=== PATIENT | male | born 1955 | race African-American/Black ===

== ENCOUNTER 2018-04-22 13:46 | Inpatient (IN) | payer OTHER ==
[2018-04-22] MEDS ORDERED: RAPID SEQUENCE INTUBATION KIT NR ONE ×2 (13:54→14:01)
[2018-04-22 14:05] LABS: BASO % 5.8 % (0-2.0); EOS % 3.4 % (0-4.5); HEMATOCRIT 42.1 % (35.4-49); HEMOGLOBIN 13.1 GM/dL (11.7-16.9); LYMPH % 21.9 % (8-40); MCHC 31.2 g/dl (32.0-35.9); MEAN CELL VOLUME 89.7 fl (80-96); MEAN PLT VOLUME 7.5 fl (7.5-11.1); MONO % 8.9 % (3.8-10.2); PLATELET COUNT 232 K/MM3 (134-434); RBC 4.69 M/mm3 (4.00-5.60); RDW 18.6 % (11.9-15.9); WHITE BLOOD COUNT 6.7 K/mm3 (4.0-10.0)
[2018-04-22] MEDS ORDERED: PROPOFOL 1,000,000 MCG/100 ML VIAL ONE ×2 (14:15→19:33)
[2018-04-22] MEDS ORDERED: PROPOFOL 200 MG/20 ML VIAL IVPUSH ONE (14:16)
[2018-04-22] MEDS ORDERED: ROCURONIUM BROMIDE 50 MG/5 ML VIAL IV ONE (14:16)
[2018-04-22] MEDS ORDERED: ETOMIDATE 20 MG/10 ML AMPUL IVPUSH ONE (14:16)
[2018-04-22 14:19] LABS: INR 1.12 (0.82-1.09); PROTHROMBIN TIME (PATIENT) 12.6 SEC (9.7-13.0)
[2018-04-22 14:30] LABS: ALBUMIN 3.2 g/dl (3.4-5.0); ANION GAP 13 (8-16); BILIRUBIN,TOTAL 0.4 mg/dL (0.2-1.0); BLOOD UREA NITROGEN 97 mg/dL (7-18); CALCIUM 7.9 mg/dL (8.5-10.1); CHLORIDE 108 mmol/L (98-107); CHOLESTEROL 178 mg/dL (50-200); CO2 19 mmol/L (21-32); GLUCOSE,RANDOM 170 mg/dL (74-106); POTASSIUM 4.7 mmol/L (3.5-5.1); SGOT/AST 16 U/L (15-37); SGPT/ALT 21 U/L (12-78); SODIUM 140 mmol/L (136-145); TOT PROT 7.5 g/dl (6.4-8.2); TRIGLYCERIDES 76 mg/dL (35-160)
[2018-04-22 14:31] LABS: ALK PHOS 137 U/L (45-117); HDL CHOLESTEROL 63 mg/dL (40-60)
[2018-04-22 14:32] LABS: ANISOCYTOSIS 2+; MACROCYTOSIS 0; PLATELET ESTIMATE NORMAL
[2018-04-22 14:35] LABS: CREATININE 11.7 mg/dL (0.7-1.3)
--- NOTE | 2018-04-22 14:35 | PDOC ---
History of Present Illness <Italia Ellis - Last Filed: 04/22/18 15:37> - General History Source: Family Exam Limitations: Clinical Condition <Michael Ayala - Last Filed: 04/22/18 16:00> - General Chief Complaint: Syncope/Near Syncope Stated Complaint: HIGH BP Time Seen by Provider: 04/22/18 13:48 Past History <Italia Ellis - Last Filed: 04/22/18 15:37> - Past Medical History COPD: No Disorders: Yes (kidney failure) HTN: No - Suicide/Smoking/Psychosocial Hx Smoking History: Unknown if ever smoked Have you smoked in the past 12 months: No Information on smoking cessation initiated: No Hx Alcohol Use: No Drug/Substance Use Hx: No Substance Use Type: None <Michael Ayala - Last Filed: 04/22/18 16:00> - Past Medical History Allergies/Adverse Reactions: Allergies Allergy/AdvReac Type Severity Reaction Status Date / Time No Known Allergies Allergy Verified 04/22/18 14:21 *Physical Exam - Vital Signs Last Vital Signs Temp Pulse Resp BP Pulse Ox 124 H 14 200/128 100 04/22/18 13:46 04/22/18 14:40 04/22/18 13:46 04/22/18 14:40 <Italia Ellis - Last Filed: 04/22/18 15:37> - Vital Signs Last Vital Signs Temp Pulse Resp BP Pulse Ox 124 H 44 H 200/128 100 04/22/18 13:46 04/22/18 13:46 04/22/18 13:46 04/22/18 13:46 <Michael Ayala - Last Filed: 04/22/18 16:00> ED Treatment Course - LABORATORY CBC & Chemistry Diagram: 04/22/18 13:55 04/22/18 13:55 - ADDITIONAL ORDERS Additional order review: Laboratory Results 04/22/18 04/22/18 13:55 13:55 PT with INR 12.60 INR 1.12 Sodium 140 Potassium 4.7 Chloride 108 H Carbon Dioxide 19 L Anion Gap 13 BUN 97 H Creatinine 11.7 H* Creat Clearance w eGFR 4.42 Random Glucose 170 H Calcium 7.9 L Total Bilirubin 0.4 AST 16 ALT 21 Alkaline Phosphatase 137 H Creatine Kinase 226 Creatine Kinase Index 1.6 CK-MB (CK-2) 3.8 H Troponin I 0.09 H Total Protein 7.5 Albumin 3.2 L Triglycerides 76 Cholesterol 178 Total LDL Cholesterol 106 H HDL Cholesterol 63 H 04/22/18 13:55 RBC 4.69 MCV 89.7 MCHC 31.2 L RDW 18.6 H MPV 7.5 Neutrophils % 60.0 Lymphocytes % 21.9 Monocytes % 8.9 Eosinophils % 3.4 Basophils % 5.8 H* - Medications Given in the ED: ED Medications Discontinued Medications Generic Name Dose Route Start Last Admin Trade Name Mile PRN Reason Stop Dose Admin Fentanyl 50 mcg 04/22/18 14:16 04/22/18 14:12 Sublimaze Injection - IVPUSH 04/22/18 14:17 50 mcg ONCE ONE Administration - Consult/PCP Case discussed with consulting physician: Andrade Hayes (Re-paged Neuro to report CT results. Callback 3:30pm) - Additional Consults Time Called: 14:54 (Paged Renal on-call - Dr. Tai) Consult/PCP: Repaged Nephrology at 3:18p Time Called: 15:06 (Paged Dona) <Italia Ellis - Last Filed: 04/22/18 15:37> - LABORATORY CBC & Chemistry Diagram: 04/22/18 13:55 04/22/18 13:55 - ADDITIONAL ORDERS Additional order review: Laboratory Results 04/22/18 13:55 PT with INR 12.60 INR 1.12 04/22/18 13:55 RBC 4.69 MCV 89.7 MCHC 31.2 L RDW 18.6 H MPV 7.5 Neutrophils % 60.0 Lymphocytes % 21.9 Monocytes % 8.9 Eosinophils % 3.4 Basophils % 5.8 H* - RADIOLOGY Radiology Studies Ordered: Category Date Time Status HEAD CT (STROKE) [CT] Stat CT Scan 04/22/18 13:48 Ordered <Michael Ayala - Last Filed: 04/22/18 16:00> *DC/Admit/Observation/Transfer <Italia Ellis - Last Filed: 04/22/18 15:37> <Michael Ayala - Last Filed: 04/22/18 16:00> Diagnosis at time of Disposition: Renal failure, ARDS (adult respiratory distress syndrome), Respiratory failure - Discharge Dispostion Condition at time of disposition: Guarded
[2018-04-22] MEDS: PROPOFOL 1,000,000 MCG/100 ML VIAL IVPB SCH (14:40)
--- NOTE | 2018-04-22 14:50 | PDOC ---
History of Present Illness - General History Source: EMS Exam Limitations: Clinical Condition <Michael Ayala - Last Filed: 04/22/18 16:06> - History of Present Illness Initial Comments: Patient is a 62 M, with PMHx of Chronic Kidney Disease, Congestive Heart Failure , Coronary Artery Disease, Myocardial Infarction, who was BIBA for unresponsiveness. Around 1 pm the patients wfe reports that he complained of feeling unwell, the patient proceeded to lie down and become unresponsive. EMS was called and they report that he was very altered and confused when they arrived. Patient was given O2 en route. EMS notes a blood glucose of 183 and and elevated BP (240 systolic), pinpoint pupils, and tachycardic. EMS did not notice any narcotics in the home. Patients notes that patient has been sleeping for sometimes 20 hours/day since October. 04/22/18 16:22 <Italia Ellis - Last Filed: 04/22/18 16:22> <Lynnette Alvarez - Last Filed: 04/22/18 18:17> - General Chief Complaint: Syncope/Near Syncope Stated Complaint: HIGH BP Time Seen by Provider: 04/22/18 13:48 Past History - Past Medical History COPD: No Disorders: Yes (kidney failure) HTN: No - Suicide/Smoking/Psychosocial Hx Smoking History: Unknown if ever smoked Have you smoked in the past 12 months: No Information on smoking cessation initiated: No Hx Alcohol Use: No Drug/Substance Use Hx: No Substance Use Type: None <Michael Ayala - Last Filed: 04/22/18 16:06> <Italia Ellis - Last Filed: 04/22/18 16:22> <Lynnette Alvarez - Last Filed: 04/22/18 18:17> - Past Medical History Allergies/Adverse Reactions: Allergies Allergy/AdvReac Type Severity Reaction Status Date / Time No Known Allergies Allergy Verified 04/22/18 14:21 Review of Systems - Review of Systems Able to Perform ROS?: No (unresponsive/altered) <Italia Ellis - Last Filed: 04/22/18 16:22> *Physical Exam - Vital Signs Last Vital Signs Temp Pulse Resp BP Pulse Ox 124 H 44 H 200/128 100 04/22/18 13:46 04/22/18 13:46 04/22/18 13:46 04/22/18 13:46 - Physical Exam Comments: 04/22/18 16:06 GENERAL: Responsive to tactile stimuli, not following commands, ill-appearing. HEAD: No signs of trauma EYES: PERRLA, EOMI, ENT: Auricles normal inspection, hearing grossly normal, nares patent NECK: Normal ROM, supple, LUNGS: Ronchorous breath sounds bilaterally. HEART: Regular rate and rhythm, normal S1 and S2, no murmurs, rubs or gallops. Tachycardic ABDOMEN: Soft, nontender EXTREMITIES: Normal range of motion, no edema. NEUROLOGICAL: Cranial nerves II through XII grossly intact. Does not follow commands. Appears to be moving all extremities equally SKIN: Warm, Dry, normal turgor, no rashes or lesions noted. <Michael Ayala - Last Filed: 04/22/18 16:06> - Vital Signs Last Vital Signs Temp Pulse Resp BP Pulse Ox 95.3 F L 115 H 14 218/110 100 04/22/18 15:12 04/22/18 16:12 04/22/18 16:12 04/22/18 16:12 04/22/18 16:12 <Italia Ellis - Last Filed: 04/22/18 16:22> - Vital Signs Last Vital Signs Temp Pulse Resp BP Pulse Ox 95.3 F L 102 H 20 192/102 100 04/22/18 15:12 04/22/18 17:12 04/22/18 17:12 04/22/18 17:12 04/22/18 17:12 <Lynnette Alvarez - Last Filed: 04/22/18 18:17> NIH Stroke Scale - Last Known Well Date/Time & Onset Date Last Known Well: 04/22/18 Time Last Known Well: 13:00 - Initial Evaluation Level of consciousness: Not alert, requires repeat stimulation to attend Ask patient the month and their age: Both incorrect Ask patient to open & close eyes; make fist and let go: Both incorrect Best gaze (horizontal eye movement): Normal Visual field testing: No visual field loss Facial paresis (Show teeth/raise eyebrows/close eyes tight): Normal symmetrical movement Motor Function: Left Arm: Normal Motor Function: Right Arm: Normal (extends arm 90 (or 45) degrees for 10 seconds without drift Motor Function: Left Leg: Normal (extends leg 30 degrees for 5 seconds without drift) Motor Function: Right Leg: Normal (extends leg 30 degrees for 5 seconds without drift) Limb Ataxia: No ataxia Sensory(Use pinprick test arms,legs,trunk,face/side to side): Severe to total sensory loss Best language (Describe picture, name items, read sentences): Mute Dysarthria (read several words): Near unintelligible or unable to speak Extinction and Inattention: Profound chace-inattention or extinction to more than one modality - Total Score NIH Stroke Scale Score: 15 <Michael Ayala - Last Filed: 04/22/18 16:06> tPA Exclusion Checklist 0-3hr - Time Elapsed Date last known well: 04/22/18 Time last known well: 13:00 Elaspsed time: Day(s) and 3 Hour(s) and 6 Minutes <Michael Ayala - Last Filed: 04/22/18 16:06> Procedures - Intubation Time of Intubation: 14:20 Intubation Method: orotracheal Blade used: Glidescope Tube Size (Fr): 7.5 Medications: Etomidate, Rocuronium Tube position @ lip (cm): 22 Tube position confirmed by: Direct visualization, CO2 detector, Chest x-ray, Breath sounds Breath Sounds after Intubation: equal Intubation Complications: no complications Post Intubation Xray: Yes <Michael Ayala - Last Filed: 04/22/18 16:06> - Central Line Central Line Lumen: double Central Line Position: femoral (R) Anesthesia: 1% Lidocaine Amount of anesthesia (ccs): 3 Complications: none Post Central Line Insertion: sutured, good blood return Progress: Biopatch and tegaderm applied <Lynnette Alvarez - Last Filed: 04/22/18 18:17> Heart Score/ECG Review #1 ECG reviewed & interpreted by me at: 14:10 04/22/18 15:33 NSR 119, left atrial enlargement, LVH with strain, QTC 497 msec <Michael Ayala - Last Filed: 04/22/18 16:06> Critical Care Time/MDM Note Total Critical Care Time: 60 Critical Care Statement: The care of this patient involved high complexity decision making to prevent further life threatening deterioration of the patient 's condition and/or to evaluate & treat vital organ system(s) failure or risk of failure. - Medical Decision Making Note: 04/22/18 14:50 A portion of this note was documented by scribe services under my direction. I have reviewed the details of the note, within reason, and agree with the documentation with the following case summary and management plan written by me. Patient treated in the ED. Nursing notes are reviewed and incorporated into the medical decision-making. Vital signs reviewed. Peripheral IV access obtained by the nurse, laboratory studies are drawn and sent, reviewed and interpreted by myself. Vital Signs Temp Pulse Resp BP Pulse Ox 124 H 14 200/128 100 04/22/18 13:46 04/22/18 14:40 04/22/18 13:46 04/22/18 14:40 62-year-old male with past medical history of hypertension, coronary disease, [place] , chronic kidney disease, congestive heart failure presents with unresponsiveness. History is obtained from EMS and from the patient's . The patient was in his usual state of health today. The patient at 1 PM had called over his as he reported feeling general malaise and unwell. The patient progressed to sit down. He had lied down and patient became unresponsive. He was very altered and confused. EMS was activated and found the patient minimally responsive. Patient was brought to the ED. EMS noted a glucose in the 180s. Blood pressure noted be 240 systolic. Code larkin was initiated. When the patient was evaluated by us, there was significant concern for airway protection. The patient is not following commands but appears to be moving all extremity is grossly. There is no obvious facial deficit. Patient airway protection was of concern so RSI was performed using the glydeoscope by Dr. Alvarez. Uncomplicated intubation. 7.5 ET tube was placed at 22 at the lip. Bilateral breath sounds and end tidal confirmed. Head CT demonstrates no acute findings. There is no intracranial hemorrhage. With the patient's minimal responsiveness be secondary to metabolic disarray such as uremic encephalopathy. Could this have been hypertensive and cephalopathy? Also within differential is PRES syndrome. The patient may potentially have had an ischemic stroke but the physical exam generally did not demonstrate an obvious focal deficit. Case was discussed with neurologist. We'll consult nephrology for potential stat dialysis. We'll need to admit the patient to the ICU for further management. 04/22/18 15:50 CBC, BMP 04/22/18 13:55 04/22/18 13:55 CMP Sodium 140 mmol/L (136-145) 04/22/18 13:55 Potassium 4.7 mmol/L (3.5-5.1) 04/22/18 13:55 Chloride 108 mmol/L (98-107) H 04/22/18 13:55 Carbon Dioxide 19 mmol/L (21-32) L 04/22/18 13:55 Anion Gap 13 (8-16) 04/22/18 13:55 BUN 97 mg/dL (7-18) H 04/22/18 13:55 Creatinine 11.7 mg/dL (0.7-1.3) H* 04/22/18 13:55 Creat Clearance w eGFR 4.42 (>60) 04/22/18 13:55 Random Glucose 170 mg/dL (74-106) H 04/22/18 13:55 Calcium 7.9 mg/dL (8.5-10.1) L 04/22/18 13:55 Total Bilirubin 0.4 mg/dL (0.2-1.0) 04/22/18 13:55 AST 16 U/L (15-37) 04/22/18 13:55 ALT 21 U/L (12-78) 04/22/18 13:55 Alkaline Phosphatase 137 U/L (45-117) H 04/22/18 13:55 Creatine Kinase 226 IU/L (39-308) 04/22/18 13:55 Creatine Kinase Index 1.6 % (0.0-5.0) 04/22/18 13:55 CK-MB (CK-2) 3.8 ng/mL (0.5-3.6) H 04/22/18 13:55 Troponin I 0.09 ng/ml (0.00-0.05) H 04/22/18 13:55 Total Protein 7.5 g/dl (6.4-8.2) 04/22/18 13:55 Albumin 3.2 g/dl (3.4-5.0) L 04/22/18 13:55 Triglycerides 76 mg/dL (35-160) 04/22/18 13:55 Cholesterol 178 mg/dL (50-200) 04/22/18 13:55 Total LDL Cholesterol 106 mg/dL (5-100) H 04/22/18 13:55 HDL Cholesterol 63 mg/dL (40-60) H 04/22/18 13:55 04/22/18 16:01 The patient case is discussed with software release engineer, Dr. Tai. After discussed with the patient, it appears that the patient has been having a gradual decline since October 2017. Has been increasingly more fatigued and tired. In today an acute episode later today. I suspect this is less likely to be an ischemic stroke given the circumstances. Case was discussed with the neurologist, Dr. Cuevas who also concurs. After discussed the case with software release engineer, we suspect that the patient may be having some element of metabolic disarray such as uremia. The chest x-ray demonstrates a well positioned ET tube blood pulmonary edema which is suspect may be secondary to the hypertension. We will place a Shiley catheter for dialysis. Patient's consents. The case was discussed with system support technician Dr. Huang which is the patient's the ICU. Case was also discussed with [facility] hospitalist who accepts the patient to their service. Case discussed in detail with admitting physician including history, physical exam and ancillary studies. Admitting physician has assumed care for the patient, will follow all pending diagnostics and will complete the evaluation and treatment. <Michael Ayala - Last Filed: 04/22/18 16:06> Discharge Disposition - Discharge Dispostion Decision to Admit order: Yes <Michael Ayala - Last Filed: 04/22/18 16:06> <Italia Ellis - Last Filed: 04/22/18 16:22> <Lynnette Alvarez - Last Filed: 04/22/18 18:17> - Diagnosis ARDS (adult respiratory distress syndrome) Renal failure Qualifiers: Renal failure chronicity: unspecified chronicity Qualified Code(s): N19 - Unspecified kidney failure Respiratory failure Qualifiers: Chronicity: acute Respiratory failure complication: unspecified whether with hypoxia or hypercapnia Qualified Code(s): J96.00 - Acute respiratory failure, unspecified whether with hypoxia or hypercapnia - Discharge Dispostion Condition at time of disposition: Guarded
--- NOTE | 2018-04-22 16:01 | CON.NEP ---
Consult Consult Specialty:: nephrology Referred by:: dr turner Reason for Consultation:: altered mental status and kidney failure - History of Present Illness Chief Complaint: sob History of Present Illness: patient became less responsive today after weeks of lethargy and excessive somnolence going back to october 2017 and or november 2017 he has a know history of renal failure for which he was advised to start hemodialysis or peritoneal dialysis he has been reluctant or refusing to accept dialysis - History Source History Provided By: Family Member Limitations to Obtaining History: Intubated - Alcohol/Substance Use Hx Alcohol Use: No - Smoking History Smoking history: Unknown if ever smoked Have you smoked in the past 12 months: No Home Medications - Allergies Allergies/Adverse Reactions: Allergies Allergy/AdvReac Type Severity Reaction Status Date / Time No Known Allergies Allergy Verified 04/22/18 14:21 Review of Systems - Review of Systems Constitutional: reports: Lethargy, Weakness Eyes: reports: No Symptoms HENT: reports: No Symptoms Neck: reports: No Symptoms Cardiovascular: reports: Shortness of Breath Respiratory: reports: SOB Gastrointestinal: reports: No Symptoms Genitourinary: reports: No Symptoms Breasts: reports: No Symptoms Reported Musculoskeletal: reports: No Symptoms Integumentary: reports: No Symptoms Neurological: reports: Confusion, Weakness Endocrine: reports: No Symptoms Hematology/Lymphatic: reports: No Symptoms Psychiatric: reports: No Symptoms Nephrology Consult - Height Height: 5 ft 4 in - Weight Weight: 140 lb - BMI Body Mass Index (BMI): 24.0 - Lab Results CBC,BMP: CBC, BMP 04/22/18 13:55 04/22/18 13:55 Anion Gap: Anion Gap Anion Gap 13 (8-16) 04/22/18 13:55 - Physical Examination Vital Signs: Vital Signs Temperature 95.3 F L 04/22/18 15:12 Pulse Rate 117 H 04/22/18 15:12 Respiratory Rate 14 04/22/18 15:12 Blood Pressure 206/118 04/22/18 15:12 O2 Sat by Pulse Oximetry (%) 100 04/22/18 14:40 Constitutional: Yes: Thin Eyes: Yes: WNL, Conjunctiva Clear, EOM Intact HENT: Yes: WNL, Atraumatic, Normocephalic Neck: Yes: WNL, Supple, Trachea Midline Cardiovascular: Yes: Tachycardia Respiratory: Yes: Mechanically Ventilated Gastrointestinal: Yes: Normal Bowel Sounds, Soft Renal/: No: Bladder Distention, CVA Tenderness - Left, CVA Tenderness - Right Integumentary: Yes: WNL Assessment/Plan uremic encephalopathy esrd accelerated HTN Uremic pneumonitis Plan- start HD when stable and cleared by neuro
[2018-04-22] MEDS: SODIUM CHLORIDE 1,000 ML IV SCH (16:02)
--- NOTE | 2018-04-22 17:29 | HP ---
CHIEF COMPLAINT: PCP: HISTORY OF PRESENT ILLNESS: 62 yo M h/o CKD, CAD, [place] BIBEMS for unconsciousness and unresponsiveness. Per , patient was at his normal state of health till 1pm when all of sudden he felt short of breath and started gagging. Pt thought he was having heat stroke and poured cold water on his head. He then felt weak and tried to lie down then became unresponsive. Subsequently, he was brought in altered and confused. said the pt did not have fever, chills, chest pain, sob, n/v, urinary or bowel sx. ER course was notable for: (1) BP >200/100 (2) intubated and started propofol gtt (3) shiley catheter inserted for emergent dialysis Recent Travel: Denies PAST MEDICAL HISTORY: as above PAST SURGICAL HISTORY: PCI Social History: Smoking: denies Alcohol:denies Drugs: denies Family History: non-contributory Allergies No Known Allergies Allergy (Verified 04/22/18 14:21) HOME MEDICATIONS: Home Medications Medication Instructions Recorded Amlodipine Besylate [Norvasc -] 10 mg PO DAILY 04/22/18 Aspirin Coated [Ecotrin -] 81 mg PO DAILY 04/22/18 Carvedilol [Coreg -] 12.5 mg PO BID 04/22/18 Donepezil HCl [Aricept -] 10 mg PO DAILY 04/22/18 Hydralazine HCl 50 mg PO TID 04/22/18 Tamsulosin HCl [Flomax] 0.4 mg PO DAILY 04/22/18 REVIEW OF SYSTEMS (unable to assess) CONSTITUTIONAL: Absent: fever, chills, diaphoresis, generalized weakness, malaise, loss of appetite, weight change HEENT: Absent: rhinorrhea, nasal congestion, throat pain, throat swelling, difficulty swallowing, mouth swelling, ear pain, eye pain, visual changes CARDIOVASCULAR: Absent: chest pain, syncope, palpitations, irregular heart rate, lightheadedness , peripheral edema RESPIRATORY: Absent: cough, shortness of breath, dyspnea with exertion, orthopnea, wheezing, stridor, hemoptysis GASTROINTESTINAL: Absent: abdominal pain, abdominal distension, nausea, vomiting, diarrhea, constipation, melena, hematochezia GENITOURINARY: Absent: dysuria, frequency, urgency, hesitancy, hematuria, flank pain, genital pain MUSCULOSKELETAL: Absent: myalgia, arthralgia, joint swelling, back pain, neck pain SKIN: Absent: rash, itching, pallor HEMATOLOGIC/IMMUNOLOGIC: Absent: easy bleeding, easy bruising, lymphadenopathy, frequent infections ENDOCRINE: Absent: unexplained weight gain, unexplained weight loss, heat intolerance, cold intolerance NEUROLOGIC: Absent: headache, focal weakness or paresthesias, dizziness, unsteady gait, seizure, mental status changes, bladder or bowel incontinence PSYCHIATRIC: Absent: anxiety, depression, suicidal or homicidal ideation, hallucinations. PHYSICAL EXAMINATION Vital Signs - 24 hr 04/22/18 04/22/18 04/22/18 13:46 14:12 14:40 Temperature Pulse Rate 124 H Pulse Rate [ 124 H Apical] Respiratory 44 H 14 Rate Blood Pressure 200/128 Blood Pressure 183/100 [Left Arm] O2 Sat by Pulse 100 100 100 Oximetry (%) 04/22/18 04/22/18 15:12 16:12 Temperature 95.3 F L Pulse Rate Pulse Rate [ 117 H 115 H Apical] Respiratory 14 14 Rate Blood Pressure Blood Pressure 206/118 218/110 [Left Arm] O2 Sat by Pulse 100 100 Oximetry (%) GENERAL: intubated and sedated, RASS -4 HEAD: Normal with no signs of trauma. EYES: Pupils equal pinpoint LUNGS: coarse breath sounds on mechanical ventilation. HEART: tachycardic, normal S1 and S2 without murmur, rub or gallop. ABDOMEN: Soft, nontender, not distended, normoactive bowel sounds, no guarding, no rebound, no masses. No hepatomegaly or splenomegaly. LOWER EXTREMITIES: diminished pulses, cool, well-perfused. No calf tenderness. No peripheral edema. Laboratory Results - last 24 hr 04/22/18 04/22/18 04/22/18 13:55 13:55 13:55 WBC 6.7 RBC 4.69 Hgb 13.1 Hct 42.1 MCV 89.7 MCH 28.0 MCHC 31.2 L RDW 18.6 H Plt Count 232 MPV 7.5 Absolute Neuts (auto) 4.0 Neutrophils % 60.0 Neutrophils % (Manual) 58.4 Band Neutrophils % 0.0 Lymphocytes % 21.9 Lymphocytes % (Manual) 25.7 Monocytes % 8.9 Monocytes % (Manual) 11 H Eosinophils % 3.4 Eosinophils % (Manual) 3.0 Basophils % 5.8 H* Basophils % (Manual) 2.0 Myelocytes % (Man) 0 Promyelocytes % (Man) 0 Blast Cells % (Manual) 0 Nucleated RBC % 0 Metamyelocytes 0 Hypochromia 0 Platelet Estimate Normal Polychromasia 0 Poikilocytosis 1+ Anisocytosis 2+ Microcytosis 1+ Macrocytosis 0 PT with INR 12.60 INR 1.12 Sodium 140 Potassium 4.7 Chloride 108 H Carbon Dioxide 19 L Anion Gap 13 BUN 97 H Creatinine 11.7 H* Creat Clearance w eGFR 4.42 Random Glucose 170 H Calcium 7.9 L Total Bilirubin 0.4 AST 16 ALT 21 Alkaline Phosphatase 137 H Creatine Kinase 226 Creatine Kinase Index 1.6 CK-MB (CK-2) 3.8 H Troponin I 0.09 H Total Protein 7.5 Albumin 3.2 L Triglycerides 76 Cholesterol 178 Total LDL Cholesterol 106 H HDL Cholesterol 63 H Blood Type Antibody Screen 04/22/18 13:55 WBC RBC Hgb Hct MCV MCH MCHC RDW Plt Count MPV Absolute Neuts (auto) Neutrophils % Neutrophils % (Manual) Band Neutrophils % Lymphocytes % Lymphocytes % (Manual) Monocytes % Monocytes % (Manual) Eosinophils % Eosinophils % (Manual) Basophils % Basophils % (Manual) Myelocytes % (Man) Promyelocytes % (Man) Blast Cells % (Manual) Nucleated RBC % Metamyelocytes Hypochromia Platelet Estimate Polychromasia Poikilocytosis Anisocytosis Microcytosis Macrocytosis PT with INR INR Sodium Potassium Chloride Carbon Dioxide Anion Gap BUN Creatinine Creat Clearance w eGFR Random Glucose Calcium Total Bilirubin AST ALT Alkaline Phosphatase Creatine Kinase Creatine Kinase Index CK-MB (CK-2) Troponin I Total Protein Albumin Triglycerides Cholesterol Total LDL Cholesterol HDL Cholesterol Blood Type O POSITIVE Antibody Screen Negative Head CT: negative for intracranial bleed ASSESSMENT/PLAN: 62 yo M h/o CKD, CAD, LA admitted to ICU for AMS with hypertensive emergency and uremia. AMS - 2/2 hypertensive and uremic encephalopathy - Started on propofol gtt, will change to labetalol gtt if BP refractory * do not decrease BP by > 25% of SBP * hold parameters given as physician instruction - Shiely inserted for urgent dialysis ODILIA on CKD with uremic encephalopathy - unknown Cr baseline, h/o dialysis, been f/u as outpatient with kiln repairer at [facility] - urgent dialysis Elevated troponin - Likely demand ischemia - Cont. to trend HTN - Hold oral coreg, norvasc, hydralazine for now Dementia - Hold aricept due to NPO BPH - Hold flomax due to NPO CAD s/p LA - on ASA but NPO for meds now FEN - Hold IVF due to hypertension - Replete lytes PRN - NPO DVT ppx - heparin bid Dispo - monitor in ICU Visit type - Emergency Visit Emergency Visit: Yes ED Registration Date: 04/22/18 Care time: The patient presented to the Emergency Department on the above date and was hospitalized for further evaluation of their emergent condition. - New Patient This patient is new to me today: Yes Date on this admission: 04/23/18 - Critical Care Critical Care patient: Yes Total Critical Care Time (in minutes): 45 Critical Care Statement: The care of this patient involved high complexity decision making to prevent further life threatening deterioration of the patient 's condition and/or to evaluate & treat vital organ system(s) failure or risk of failure. Hospitalist Screening - Colonoscopy Questionnaire Colonoscopy Questionnaire: Colonoscopy Questionnaire - Patient: 50 - 75 years old and never had a screening colonoscopy: Unknown History of colon or rectal polyps, or CA: Unknown History of IBD, Crohn's disease or UC: Unknown History of abdominal radiation therapy as a child: Unknown - Relative: 1 with colon or rectal CA, or polyps at age 60 or younger: Unknown Colon or rectal CA diagnosed at age 45 or younger: Unknown Multiple relatives with colon or rectal CA: Unknown - Outcome: Screening Result: Negative Screen
[2018-04-22 18:25] LABS: URINE APPEARANCE CLOUDY; URINE BILIRUBIN NEGATIVE (<2.0 mg/dL); URINE COLOR LTYELLOW; URINE GLUCOSE (UA) 1+ (NEGATIVE); URINE KETONE NEGATIVE (NEGATIVE); URINE LEUK ESTERASE NEGATIVE (NEGATIVE); URINE NITRITE NEGATIVE (NEGATIVE); URINE UROBILINOGEN NEGATIVE mg/dL (0.2-1.0)
[2018-04-22 18:27] LABS: URINE PROTEIN 3+ (NEGATIVE)
[2018-04-22 18:28] LABS: URINE MUCUS RARE
[2018-04-22 18:40] LABS: COCAINE, UR NEGATIVE ng/ml (CUTOFF=300); OPIATES, URI NEGATIVE ng/ml (CUTOFF=300); PHENCYCLIDINE,URINE NEGATIVE ng/ml (CUTOFF=25); URINE AMPHETAMINES NEGATIVE ng/ml (CUTOFF=500); URINE BARBITURATES NEGATIVE ng/ml (CUTOFF=200); URINE BENZODIAZEPINES NEGATIVE ng/ml (CUTOFF=200)
[2018-04-22 18:41] LABS: METHADONE, UR NEGATIVE ng/ml (CUTOFF=300)
--- NOTE | 2018-04-22 18:47 | PN ---
Teaching Attending Note Name of Resident: Michael Talamantes ATTENDING PHYSICIAN STATEMENT I saw and evaluated the patient. I reviewed the resident's note and discussed the case with the resident. I agree with the resident's findings and plan as documented. HPI is per present at bedside SUBJECTIVE:62yo M with PMH CKD (has refused HD in the past), and CAD presenting with progressively worsening shortness of breath. pt was in normal state of health then started feeling super hot and difficulty breathing. was pouring water over his head and went to lay down. when she went to go speak to him he was unresponsive. as per was not complaining of any other symptoms pt was intubated in the ICU to protect airway propofol ggt was started for HTN emergency and sedation OBJECTIVE: Last Vital Signs Temp Pulse Resp BP Pulse Ox 95.3 F L 101 H 23 164/91 100 04/22/18 15:12 04/22/18 18:12 04/22/18 18:12 04/22/18 18:12 04/22/18 18:12 General intubated/sedated CV S1 S2 RRR no murmur/rub/gallop Lungs Coarse breath sounds anteriorly ABdomen soft NT/ND Extremities 1+ pitting edema ASSESSMENT AND PLAN: 62yo M with PMH CKD (has refused HD in the past), and CAD presenting with progressively worsening shortness of breath and altered mental status. in the ER was found to have SBP 240. code [place] was activated in the ER 1. ACute toxic/metabolic encephalopathy- ICU admission. liekly combination of uremic and hypertension emergency. Code [place] was activated in the ER. initial Head CT was negative. less liekly CVA. will attempt to slowly lower BP with goal SBP 190. on propofol. will start labetolol if does not improve. place kinney catheter for strict I&O. Shiley catheter being placed in the ER for emergent HD. neuro and nephro has been consulted. UTox negative on asa. hold oral agents 2. Elevated troponin- likely demand ischemia. trend cardiac enzymes and EKG. check echo 3. ACute on CKD- HD catheter placement and HD per nephro 4. Acute respiratory failure- intubated in the ER due to poor mental status. saturating well on 40% Fio2. vent management per ICU team 5. dementia- hold aricept 6. DVT ppx- hep sq 7. MICU monitoring. pt was accepted by the ICU The care of this patient involved high complexity decision making to prevent further life threatening deterioration of the patient's condition and/or to evaluate & treat vital organ system(s) failure or risk of failure. Critical care time spent in reviewing chart, evaluating patient and formulating plan - 45 minutes.
--- NOTE | 2018-04-22 21:21 | CONSULT ---
Consult Consult Specialty:: pulm critical care Referred by:: rupali turner Reason for Consultation:: AMS - History of Present Illness Chief Complaint: SOB History of Present Illness: This is a 62yo M with PMH CKD (has refused HD in the past) and CAD who presented to [facility] with progressively worsening shortness of breath. Pt was noted to be in USOH, but then started feeling feverish and dyspneic. At home, pt was noted to be pouring water over his head and went to lay down. found patient unresponsive. She denies that her had any other complaints. In the ED pt VS: Afebrile, BP:200/128, HR 124, o2 sat 100% (unclear how much Fio2). Given patient's altered mental status and Dyspnea, he was intubated. Head CT neg for acute changes and ICH. UTOx neg. CXR showed b/l pathcy infiltrates with edema and pleural effusions. Labs remarkable for trop 0.09, alk phos 137, creat 11.7. Nephrology consulted. HD cath placed. As per chart review, he was started on propofol for sedation and ?BP management?. He was transferred to ICU for further management of HTN emergemcy, emergent HD, and encephalopathy. Upon arrival to the ICU, VS: 97.1F, BP 213/104, HR 100s sat'ing well on vent. RASS+1 requiring propofol gtt rate increases. HD session started with total volume out goal of 2L which should improve BP. 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 Cardio/Vascular: Yes: CAD, CHF, Hyperlipdemia, [place] Pulmonary: No: Asthma, Bronchitis, Cancer, COPD, O2 Dependent, Pneumonia, Previously Intubated, Pulmonary Embolus, Pulmonary Fibrosis, Sleep Apnea, Other Renal/: Yes: Renal Failure - Alcohol/Substance Use Hx Alcohol Use: No - Smoking History Smoking history: Unknown if ever smoked Have you smoked in the past 12 months: No - Social History Usual Living Arrangement: With Spouse ADL: Independent Home Medications - Allergies Allergies/Adverse Reactions: Allergies Allergy/AdvReac Type Severity Reaction Status Date / Time No Known Allergies Allergy Verified 04/22/18 14:21 - Home Medications Home Medications: Ambulatory Orders Amlodipine Besylate [Norvasc -] 10 mg PO DAILY 04/22/18 Aspirin Coated [Ecotrin -] 81 mg PO DAILY 04/22/18 Carvedilol [Coreg -] 12.5 mg PO BID 04/22/18 Donepezil HCl [Aricept -] 10 mg PO DAILY 04/22/18 Hydralazine HCl 50 mg PO TID 04/22/18 Tamsulosin HCl [Flomax] 0.4 mg PO DAILY 04/22/18 Family Disease History - Family Disease History Family History: Unremarkable Review of Systems - Review of Systems Constitutional: reports: Fever Cardiovascular: reports: Shortness of Breath Respiratory: reports: SOB Neurological: reports: Change in LOC Physical Exam Vital Signs: Vital Signs Temperature 95.3 F L 04/22/18 15:12 Pulse Rate 71 04/22/18 20:17 Respiratory Rate 18 04/22/18 20:17 Blood Pressure 179/90 04/22/18 20:17 O2 Sat by Pulse Oximetry (%) 100 04/22/18 20:17 Constitutional: Yes: Well Nourished, No Distress, Calm Eyes: Yes: WNL, Conjunctiva Clear, EOM Intact HENT: Yes: WNL, Atraumatic, Normocephalic Neck: Yes: WNL, Supple, Trachea Midline Cardiovascular: Yes: WNL, Regular Rate and Rhythm. No: JVD, Gallop, Murmur, Rub Respiratory: Yes: Regular, Rales (crackles b/l1/3 up) Gastrointestinal: Yes: WNL, Normal Bowel Sounds, Soft. No: Tenderness ...Rectal Exam: Yes: WNL Renal/: Yes: Oliguria Breast(s): Yes: WNL Musculoskeletal: Yes: WNL Extremities: Yes: WNL Edema: Yes Edema: LLE: Trace, RLE: Trace Peripheral Pulses WNL: Yes Integumentary: Yes: WNL Neurological: No: Facial Droop (sedated on propofol) ...Motor Strength: WNL Psychiatric: Yes: WNL Labs: CBC, BMP 04/22/18 13:55 04/22/18 13:55 Imaging - Results Chest X-ray: Image Reviewed (b/l patchy infilttrates, pleural effsuions,) Cat Scan: Image Reviewed (heAD Ct neg for ICH and acute changes) EKG: Pending (Sinus tach, no ST changes) Problem List - Problems (1) Toxic metabolic encephalopathy Code(s): G92 - TOXIC ENCEPHALOPATHY (2) ARDS (adult respiratory distress syndrome) Code(s): J80 - ACUTE RESPIRATORY DISTRESS SYNDROME (3) Renal failure Code(s): N19 - UNSPECIFIED KIDNEY FAILURE Qualifiers: Renal failure chronicity: acute on chronic (4) Respiratory failure Code(s): J96.90 - RESPIRATORY FAILURE, UNSP, UNSP W HYPOXIA OR HYPERCAPNIA Qualifiers: Chronicity: acute Respiratory failure complication: unspecified whether with hypoxia or hypercapnia Qualified Code(s): J96.00 - Acute respiratory failure, unspecified whether with hypoxia or hypercapnia Assessment/Plan This is a 62yo Male w/ PMHx CKD (has refused HD in the past) who presented to ED in an acute resp distress, hypoertensive emergency and altered mental status req'ing intubation and transfer to ICU for emergent HD. # Toxic metabolic encephalopathy most likely 2/2 uremic +/- htn emergency. Head CT was negative vs. less likely CVA vs toxic indigestion (utox neg) - HD tonight with volume removal to assist in BP management - sedated on propofol - neuro consulted - consider Brain MRI if unimproved # Hypertensive emergency in the setting of MS change and ODILIA - monitor BP s/p HD - labetaolol if BP unimproved - goal SBP 160-180 (avoid fast drops in BP) # Elevated troponin most likely 2/2 demand ischemia - trend trop - EKG - echo # Acute on chronic kidney failure; HD cath placed in ED -nephrology following -Emergent HD with volume removal tonight -trend bmp -strict I&O # Acute respiratory failure requiring intubation for airway protection given MS - wean vent as possible - SBT in the AM - abg # dementia - hold aricept for now # DVT ppx - hep sq KRISTEN Cabrera-BC pulm CC CC time 35mins
[2018-04-23 06:24] LABS: BASO % 0.7 % (0-2.0); EOS % 0.8 % (0-4.5); HEMATOCRIT 33.9 % (35.4-49); LYMPH % 7.2 % (8-40); MCH 28.3 pg (25.7-33.7); MCHC 32.4 g/dl (32.0-35.9); MEAN CELL VOLUME 87.2 fl (80-96); NEUT % 81.3 % (42.8-82.8); PLATELET COUNT 142 K/MM3 (134-434); RBC 3.88 M/mm3 (4.00-5.60); RDW 18.1 % (11.9-15.9); WHITE BLOOD COUNT 6.9 K/mm3 (4.0-10.0)
[2018-04-23 06:30] LABS: INR 1.17 (0.82-1.09); PROTHROMBIN TIME (PATIENT) 13.2 SEC (9.7-13.0)
[2018-04-23 06:33] LABS: ACTIVATED PTT 29.2 SECONDS (25.2-36.5)
[2018-04-23 06:50] LABS: ALBUMIN 2.5 g/dl (3.4-5.0); ANION GAP 12 (8-16); BLOOD UREA NITROGEN 78 mg/dL (7-18); CALCIUM 7.4 mg/dL (8.5-10.1); CHLORIDE 107 mmol/L (98-107); CO2 22 mmol/L (21-32); PHOSPHOROUS 6.7 mg/dL (2.5-4.9); POTASSIUM 4.8 mmol/L (3.5-5.1); SGOT/AST 15 U/L (15-37); SGPT/ALT 15 U/L (12-78); SODIUM 141 mmol/L (136-145)
[2018-04-23 06:55] LABS: ARTERIAL BLOOD GAS BASE EXCESS -5.5 meq/l (-2-2); ARTERIAL BLOOD GAS PCO2 39.9 mmHg (35-45); ARTERIAL BLOOD GAS pH 7.31 (7.35-7.45)
[2018-04-23 06:57] LABS: ALLENS TEST POSITIVE
[2018-04-23 06:59] LABS: ALK PHOS 94 U/L (45-117); BILIRUBIN,TOTAL 0.4 mg/dL (0.2-1.0); GLUCOSE,RANDOM 70 mg/dL (74-106); MAGNESIUM 1.7 mg/dL (1.8-2.4); TOT PROT 5.8 g/dl (6.4-8.2)
[2018-04-23 07:20] LABS: CREATININE 10.5 mg/dL (0.7-1.3)
[2018-04-23] MEDS ORDERED: hydrALAZINE HCL 20 MG/ML VIAL IVPUSH PRN ×2 (08:04→08:43)
[2018-04-23] MEDS ORDERED: hydrALAZINE HCL 20 MG/ML VIAL ONE (08:12)
--- NOTE | 2018-04-23 08:22 | CON.NEURO ---
Consult Consult Specialty:: Neurology Referred by:: Dr. Self Reason for Consultation:: Encephalopathy - History of Present Illness Chief Complaint: Unresponsiveness History of Present Illness: Gradually less alert over a couple of weeks in this man chronic kidney disease who has been advised to accept dialysis but up until now has declined. He became acutely unresponsive over the weekend. There were no signs of seizures or focal deficits reported. 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 Cardio/Vascular: Yes: CAD, CHF, Hyperlipdemia, [place] Pulmonary: No: Asthma, Bronchitis, Cancer, COPD, O2 Dependent, Pneumonia, Previously Intubated, Pulmonary Embolus, Pulmonary Fibrosis, Sleep Apnea, Other Renal/: Yes: Renal Failure - Alcohol/Substance Use Hx Alcohol Use: No - Smoking History Smoking history: Unknown if ever smoked Have you smoked in the past 12 months: No - Social History Usual Living Arrangement: With Spouse ADL: Independent Home Medications - Allergies Allergies/Adverse Reactions: Allergies Allergy/AdvReac Type Severity Reaction Status Date / Time No Known Allergies Allergy Verified 04/22/18 14:21 - Home Medications Home Medications: Ambulatory Orders Amlodipine Besylate [Norvasc -] 10 mg PO DAILY 04/22/18 Aspirin Coated [Ecotrin -] 81 mg PO DAILY 04/22/18 Carvedilol [Coreg -] 12.5 mg PO BID 04/22/18 Donepezil HCl [Aricept -] 10 mg PO DAILY 04/22/18 Hydralazine HCl 50 mg PO TID 04/22/18 Tamsulosin HCl [Flomax] 0.4 mg PO DAILY 04/22/18 Physical Exam-Neuro Vital Signs: Vital Signs Temperature 98.4 F 04/23/18 06:00 Pulse Rate 71 04/23/18 06:00 Respiratory Rate 14 04/23/18 07:09 Blood Pressure 147/74 04/23/18 06:00 O2 Sat by Pulse Oximetry (%) 100 04/22/18 20:17 Labs: CBC, BMP 04/23/18 05:30 04/23/18 05:30 INR, PTT INR 1.17 (0.82-1.09) H 04/23/18 05:30 - Neuro Exam Level Of Consciousness: Yes: Comatose Eyes: Yes: ERIBERTO Speech: Other (none) Cranial Nerves II-XII Intact: Yes (doll's eyes positive, corneals positive) DTR's: 0 Left Bicep, 0 Right Bicep, 0 Left Tricep, 0 Right Tricep, 0 Left Brachioradialis, 0 Right Brachioradialis, 0 Left Achilles, 0 Right Achilles Babinski: Absent (plantar reflexes were flexor) Imaging - Results Cat Scan: Report Reviewed, Image Reviewed (No acute pathology noted) Problem List - Problems (1) ARDS (adult respiratory distress syndrome) Code(s): J80 - ACUTE RESPIRATORY DISTRESS SYNDROME (2) Renal failure Code(s): N19 - UNSPECIFIED KIDNEY FAILURE Qualifiers: Renal failure chronicity: acute on chronic (3) Respiratory failure Code(s): J96.90 - RESPIRATORY FAILURE, UNSP, UNSP W HYPOXIA OR HYPERCAPNIA Qualifiers: Chronicity: acute Respiratory failure complication: unspecified whether with hypoxia or hypercapnia Qualified Code(s): J96.00 - Acute respiratory failure, unspecified whether with hypoxia or hypercapnia (4) Toxic metabolic encephalopathy Code(s): G92 - TOXIC ENCEPHALOPATHY Assessment/Plan Likely uremic encephalopathy complicated by ARDS. THere is no neurologic contranidication to dialysis. I do recommend getting EEG to r/o clinically silent seizures, but wouldn't hold up dialysis over this.
[2018-04-23] MEDS ORDERED: MAGNESIUM SULF 50% (8.12 MEQ/2 ML-1 GM VIAL) IVPB ONE (09:00)
[2018-04-23] MEDS ORDERED: PNEUMOC 13-VAL CONJ-DIP CRM/PF 0.5 ML DISP.SYRIN IM ONE (10:00)
[2018-04-23] MEDS ORDERED: MAGNESIUM 1GM/D5W - 1 GM/100 ML IVPB IVPB ONE (10:00)
[2018-04-23] MEDS: MUPIROCIN 2% TOPICAL OINTMENT FOR DECOLONIZATION NS SCH ×2 (10:20→21:52)
[2018-04-23] MEDS: HEPARIN NA (PORCINE) 5,000 UNITS/ML 1ML VIAL SQ SCH ×3 (10:20→21:52)
[2018-04-23] MEDS ORDERED: LABETALOL HCL INJECTION 1,000 MG in SODIUM CHLORIDE 800 ML IV SCH (10:45)
--- NOTE | 2018-04-23 11:34 | PN ---
Teaching Attending Note Name of Resident: Song Rodriguez ATTENDING PHYSICIAN STATEMENT I saw and evaluated the patient. I reviewed the resident's note and discussed the case with the resident. I agree with the resident's findings and plan as documented. SUBJECTIVE: Pt seen and examined in the ICU. Remains intubated, sedated but arousable. Blood pressures remain high. Tolerated HD yesterday removing 2kg. OBJECTIVE: Vital Signs Period Temp Pulse Resp BP Sys/Wyatt Pulse Ox Last 24 Hr 95.3 F-98.4 F 71-124 14-44 147-218/74-128 93-100 Intake & Output 04/20/18 04/21/18 04/22/18 04/23/18 23:59 23:59 23:59 23:59 Intake Total 0 211.2 Output Total 150 200 Balance -150 11.2 Weight 63.503 kg 67.642 kg Gen: intubated, sedated Heart: RRR Lung: scattered rhonchi Abd: soft, nontender Ext: no edema CBC, BMP 04/23/18 05:30 04/23/18 05:30 Active Medications Chlorhexidine Gluconate (Hibiclens For Decolonization -) 1 applic TP HS SHERON Heparin Sodium (Porcine) (Heparin -) 5,000 unit SQ BID SHERON Hydralazine HCl (Apresoline Injection -) 10 mg IVPUSH Q6H PRN PRN Reason: HYPERTENSION Sodium Chloride (Normal Saline -) 1,000 mls @ 42 mls/hr IV ASDIR SHERON Last Admin: 04/22/18 16:02 Dose: Not Given Propofol (Diprivan -) 1,000,000 mcg in 100 mls @ 0 mls/hr IVPB TITR SHERON; Protocol Last Titration: 04/23/18 08:30 Dose: 40 mcg/kg/min, 15.241 mls/hr Labetalol HCl 1,000 mg/ Sodium (Chloride) 1,000 mls @ 120 mls/hr IV TITR SHERON Mupirocin (Bactroban Ointment (For Decolonization) -) 1 applic NS BID SHERON Stop: 04/27/18 21:59 Pantoprazole Sodium (Protonix Iv) 40 mg IVPUSH DAILY SHERON ASSESSMENT AND PLAN: Altered Mental Status Acute Respiratory Failure Hypertensive Urgency r/o Hypertensive vs Uremic Encephalopathy Acute on Chronic Renal Failure requiring HD +Troponins likely demand ischemia Dementia - start labetalol gtt for BP control - HD per renal with ultrafiltration - monitor urine output, creatinine - echocardiogram - daily CXR - taper FiO2 to keep SpO2 >90% - daily sedation vacations to assess mental status - spontaneous breathing trials as tolerated when mental status improved - enteral feeds - DVT/GI prophylaxis - continue ICU monitoring critical care time spent in reviewing chart, evaluating patient and formulating plan 35 min
[2018-04-23] MEDS: PANTOPRAZOLE SODIUM 40 MG VIAL IVPUSH SCH (12:37)
--- NOTE | 2018-04-23 13:05 | PN ---
Physical Exam: SUBJECTIVE: Patient seen and examined. Intubated, sedated with propofol. s/p emergent HD yesterday. 2 KG removed OBJECTIVE: Vital Signs Period Temp Pulse Resp BP Sys/Wyatt Pulse Ox Last 24 Hr 95.3 F-99.2 F 71-124 14-44 147-218/74-128 93-100 GENERAL: intubated, sedated, but arousable to verbal stimuli. EYES: PERRL, sclera anicteric, conjunctiva clear. ENT: oropharynx clear without exudates LUNGS: scattered rhonchi HEART: Regular rate and rhythm, S1, S2 without murmur ABDOMEN: Soft, no grimacing on palpation EXTREMITIES: R Femoral Line, 2+ pulses, warm, no edema Laboratory Results - last 24 hr 04/22/18 04/22/18 04/22/18 13:55 13:55 13:55 WBC 6.7 RBC 4.69 Hgb 13.1 Hct 42.1 MCV 89.7 MCH 28.0 MCHC 31.2 L RDW 18.6 H Plt Count 232 MPV 7.5 Absolute Neuts (auto) 4.0 Neutrophils % 60.0 Neutrophils % (Manual) 58.4 Band Neutrophils % 0.0 Lymphocytes % 21.9 Lymphocytes % (Manual) 25.7 Monocytes % 8.9 Monocytes % (Manual) 11 H Eosinophils % 3.4 Eosinophils % (Manual) 3.0 Basophils % 5.8 H* Basophils % (Manual) 2.0 Myelocytes % (Man) 0 Promyelocytes % (Man) 0 Blast Cells % (Manual) 0 Nucleated RBC % 0 Metamyelocytes 0 Hypochromia 0 Platelet Estimate Normal Polychromasia 0 Poikilocytosis 1+ Anisocytosis 2+ Microcytosis 1+ Macrocytosis 0 PT with INR 12.60 INR 1.12 PTT (Actin FS) Anticoagulation Therapy Puncture Site ABG pH ABG pCO2 at Pt Temp ABG pO2 at Pt Temp ABG HCO3 ABG O2 Sat (Measured) ABG O2 Content ABG Base Excess Medardo Test O2 Delivery Device Oxygen Flow Rate Vent Mode Vent Rate Mechanical Rate PEEP Pressure Support Vent Sodium 140 Potassium 4.7 Chloride 108 H Carbon Dioxide 19 L Anion Gap 13 BUN 97 H Creatinine 11.7 H* Creat Clearance w eGFR 4.42 Random Glucose 170 H Calcium 7.9 L Phosphorus Magnesium Total Bilirubin 0.4 AST 16 ALT 21 Alkaline Phosphatase 137 H Creatine Kinase 226 Creatine Kinase Index 1.6 CK-MB (CK-2) 3.8 H Troponin I 0.09 H Total Protein 7.5 Albumin 3.2 L Triglycerides 76 Cholesterol 178 Total LDL Cholesterol 106 H HDL Cholesterol 63 H Urine Color Urine Appearance Urine pH Ur Specific [place] Urine Protein Urine Glucose (UA) Urine Ketones Urine Blood Urine Nitrite Urine Bilirubin Urine Urobilinogen Ur Leukocyte Esterase Urine WBC (Auto) Urine RBC (Auto) Urine Mucus Opiates Screen Methadone Screen Barbiturate Screen Phencyclidine Screen Ur Amphetamines Screen MDMA (Ecstasy) Screen Benzodiazepines Screen Cocaine Screen U Marijuana (THC) Screen Blood Type Antibody Screen 04/22/18 04/22/18 04/22/18 13:55 16:40 18:10 WBC RBC Hgb Hct MCV MCH MCHC RDW Plt Count MPV Absolute Neuts (auto) Neutrophils % Neutrophils % (Manual) Band Neutrophils % Lymphocytes % Lymphocytes % (Manual) Monocytes % Monocytes % (Manual) Eosinophils % Eosinophils % (Manual) Basophils % Basophils % (Manual) Myelocytes % (Man) Promyelocytes % (Man) Blast Cells % (Manual) Nucleated RBC % Metamyelocytes Hypochromia Platelet Estimate Polychromasia Poikilocytosis Anisocytosis Microcytosis Macrocytosis PT with INR INR PTT (Actin FS) Anticoagulation Therapy Puncture Site ABG pH ABG pCO2 at Pt Temp ABG pO2 at Pt Temp ABG HCO3 ABG O2 Sat (Measured) ABG O2 Content ABG Base Excess Medardo Test O2 Delivery Device Oxygen Flow Rate Vent Mode Vent Rate Mechanical Rate PEEP Pressure Support Vent Sodium Potassium Chloride Carbon Dioxide Anion Gap BUN Creatinine Creat Clearance w eGFR Random Glucose Calcium Phosphorus Magnesium Total Bilirubin AST ALT Alkaline Phosphatase Creatine Kinase Creatine Kinase Index CK-MB (CK-2) Troponin I Total Protein Albumin Triglycerides Cholesterol Total LDL Cholesterol HDL Cholesterol Urine Color Ltyellow Urine Appearance Cloudy Urine pH 6.0 Ur Specific [place] 1.012 Urine Protein 3+ H Urine Glucose (UA) 1+ H Urine Ketones Negative Urine Blood 1+ H Urine Nitrite Negative Urine Bilirubin Negative Urine Urobilinogen Negative Ur Leukocyte Esterase Negative Urine WBC (Auto) 7 Urine RBC (Auto) 10 Urine Mucus Rare Opiates Screen Methadone Screen Barbiturate Screen Phencyclidine Screen Ur Amphetamines Screen MDMA (Ecstasy) Screen Benzodiazepines Screen Cocaine Screen U Marijuana (THC) Screen Blood Type O POSITIVE O POSITIVE Antibody Screen Negative 04/22/18 04/22/18 04/23/18 18:10 20:01 05:30 WBC 6.9 RBC 3.88 L Hgb 11.0 L D Hct 33.9 L D MCV 87.2 MCH 28.3 MCHC 32.4 RDW 18.1 H Plt Count 142 D MPV 8.0 Absolute Neuts (auto) 5.6 Neutrophils % 81.3 D Neutrophils % (Manual) Band Neutrophils % Lymphocytes % 7.2 L D Lymphocytes % (Manual) Monocytes % 10.0 Monocytes % (Manual) Eosinophils % 0.8 Eosinophils % (Manual) Basophils % 0.7 Basophils % (Manual) Myelocytes % (Man) Promyelocytes % (Man) Blast Cells % (Manual) Nucleated RBC % 0 Metamyelocytes Hypochromia Platelet Estimate Polychromasia Poikilocytosis Anisocytosis Microcytosis Macrocytosis PT with INR INR PTT (Actin FS) Anticoagulation Therapy Puncture Site ABG pH ABG pCO2 at Pt Temp ABG pO2 at Pt Temp ABG HCO3 ABG O2 Sat (Measured) ABG O2 Content ABG Base Excess Medardo Test O2 Delivery Device Oxygen Flow Rate Vent Mode Vent Rate Mechanical Rate PEEP Pressure Support Vent Sodium Potassium Chloride Carbon Dioxide Anion Gap BUN Creatinine Creat Clearance w eGFR Random Glucose Calcium Phosphorus Magnesium Total Bilirubin AST ALT Alkaline Phosphatase Creatine Kinase Creatine Kinase Index CK-MB (CK-2) Troponin I Cancelled Total Protein Albumin Triglycerides Cholesterol Total LDL Cholesterol HDL Cholesterol Urine Color Urine Appearance Urine pH Ur Specific [place] Urine Protein Urine Glucose (UA) Urine Ketones Urine Blood Urine Nitrite Urine Bilirubin Urine Urobilinogen Ur Leukocyte Esterase Urine WBC (Auto) Urine RBC (Auto) Urine Mucus Opiates Screen Negative Methadone Screen Negative Barbiturate Screen Negative Phencyclidine Screen Negative Ur Amphetamines Screen Negative MDMA (Ecstasy) Screen Negative Benzodiazepines Screen Negative Cocaine Screen Negative U Marijuana (THC) Screen Negative Blood Type Antibody Screen 04/23/18 04/23/18 04/23/18 05:30 05:30 05:30 WBC RBC Hgb Hct MCV MCH MCHC RDW Plt Count MPV Absolute Neuts (auto) Neutrophils % Neutrophils % (Manual) Band Neutrophils % Lymphocytes % Lymphocytes % (Manual) Monocytes % Monocytes % (Manual) Eosinophils % Eosinophils % (Manual) Basophils % Basophils % (Manual) Myelocytes % (Man) Promyelocytes % (Man) Blast Cells % (Manual) Nucleated RBC % Metamyelocytes Hypochromia Platelet Estimate Polychromasia Poikilocytosis Anisocytosis Microcytosis Macrocytosis PT with INR 13.20 H INR 1.17 H PTT (Actin FS) 29.2 Anticoagulation Therapy Puncture Site ABG pH ABG pCO2 at Pt Temp ABG pO2 at Pt Temp ABG HCO3 ABG O2 Sat (Measured) ABG O2 Content ABG Base Excess Medardo Test O2 Delivery Device Oxygen Flow Rate Vent Mode Vent Rate Mechanical Rate PEEP Pressure Support Vent Sodium 141 Potassium 4.8 Chloride 107 Carbon Dioxide 22 Anion Gap 12 BUN 78 H Creatinine 10.5 H* Creat Clearance w eGFR 5.00 Random Glucose 70 L D Calcium 7.4 L Phosphorus 6.7 H Magnesium 1.7 L Total Bilirubin 0.4 AST 15 ALT 15 D Alkaline Phosphatase 94 D Creatine Kinase Creatine Kinase Index CK-MB (CK-2) Troponin I 0.45 H D Total Protein 5.8 L D Albumin 2.5 L D Triglycerides Cholesterol Total LDL Cholesterol HDL Cholesterol Urine Color Urine Appearance Urine pH Ur Specific [place] Urine Protein Urine Glucose (UA) Urine Ketones Urine Blood Urine Nitrite Urine Bilirubin Urine Urobilinogen Ur Leukocyte Esterase Urine WBC (Auto) Urine RBC (Auto) Urine Mucus Opiates Screen Methadone Screen Barbiturate Screen Phencyclidine Screen Ur Amphetamines Screen MDMA (Ecstasy) Screen Benzodiazepines Screen Cocaine Screen U Marijuana (THC) Screen Blood Type Antibody Screen 04/23/18 04/23/18 06:40 10:30 WBC RBC Hgb Hct MCV MCH MCHC RDW Plt Count MPV Absolute Neuts (auto) Neutrophils % Neutrophils % (Manual) Band Neutrophils % Lymphocytes % Lymphocytes % (Manual) Monocytes % Monocytes % (Manual) Eosinophils % Eosinophils % (Manual) Basophils % Basophils % (Manual) Myelocytes % (Man) Promyelocytes % (Man) Blast Cells % (Manual) Nucleated RBC % Metamyelocytes Hypochromia Platelet Estimate Polychromasia Poikilocytosis Anisocytosis Microcytosis Macrocytosis PT with INR INR PTT (Actin FS) Anticoagulation Therapy No Result Required. Puncture Site Right radial ABG pH 7.31 L ABG pCO2 at Pt Temp 39.9 ABG pO2 at Pt Temp 428.0 H* ABG HCO3 19.7 L ABG O2 Sat (Measured) 100.0 H* ABG O2 Content 16.2 ABG Base Excess -5.5 L Medardo Test Positive O2 Delivery Device Vent Oxygen Flow Rate 100% Vent Mode No Result Required. Vent Rate 14 Mechanical Rate No Result Required. PEEP 5.0 Pressure Support Vent 450 Sodium Potassium Chloride Carbon Dioxide Anion Gap BUN Creatinine Creat Clearance w eGFR Random Glucose Calcium Phosphorus Magnesium Total Bilirubin AST ALT Alkaline Phosphatase Creatine Kinase Creatine Kinase Index CK-MB (CK-2) Troponin I 0.39 H Total Protein Albumin Triglycerides Cholesterol Total LDL Cholesterol HDL Cholesterol Urine Color Urine Appearance Urine pH Ur Specific [place] Urine Protein Urine Glucose (UA) Urine Ketones Urine Blood Urine Nitrite Urine Bilirubin Urine Urobilinogen Ur Leukocyte Esterase Urine WBC (Auto) Urine RBC (Auto) Urine Mucus Opiates Screen Methadone Screen Barbiturate Screen Phencyclidine Screen Ur Amphetamines Screen MDMA (Ecstasy) Screen Benzodiazepines Screen Cocaine Screen U Marijuana (THC) Screen Blood Type Antibody Screen Active Medications Generic Name Dose Route Start Last Admin Trade Name Freq PRN Reason Stop Dose Admin Chlorhexidine Gluconate 1 applic 04/22/18 22:00 Hibiclens For Decolonization - TP HS SHERON Heparin Sodium (Porcine) 5,000 unit 04/22/18 22:00 04/23/18 10:20 Heparin - SQ 5,000 unit BID SHERON Administration Hydralazine HCl 10 mg 04/23/18 08:43 Apresoline Injection - IVPUSH Q6H PRN HYPERTENSION Sodium Chloride 1,000 mls @ 42 mls/hr 04/22/18 14:00 04/22/18 16:02 Normal Saline - IV Not Given ASDIR SHERON Propofol 1,000,000 mcg in 100 mls @ 0 mls/hr 04/22/18 14:30 04/23/18 08:30 Diprivan - IVPB 40 mcg/kg/min TITR SHERON 15.241 mls/hr Titration Protocol 5 MCG/KG/MIN Labetalol HCl 1,000 mg/ Sodium 1,000 mls @ 120 mls/hr 04/23/18 10:45 11:45 Chloride IV 1 mg/min TITR SHERON 60 mls/hr Administration 2 MG/MIN Mupirocin 1 applic 04/22/18 22:00 04/23/18 10:20 Bactroban Ointment (For Decolonization) - NS 04/27/18 21:59 1 applic BID SHERON Administration Pantoprazole Sodium 40 mg 04/23/18 11:30 04/23/18 12:37 Protonix Iv IVPUSH 40 mg DAILY SHERON Administration ASSESSMENT/PLAN: NEURO -Acute toxic metabolic encephalopathy -likely secondary to a combination of hypertensive emergency and uremia -HD per renal with ultrafiltration -BP control -sedated on propofol -daily sedation vacations to assess mental status PULM -Acute respiratory failure -intubated -taper FiO2 to keep SpO2 >90% -spontaneous breathing trials as tolerated when mental status improved CV -Hypertensive urgency -Labetolol gtt -BP monitoring -ECHO -Trend trops, elevated likely due to demand -Acute on Chronic CKD -emergent HD yesterday -HD as needed -monitor urine output, creatinine -renal on board -avoid nephrotoxins FEN -No iv fluids -mag repleted, monitor lytes -Tube feeds via OG PPX -hep sq -protonix iv cont icu monitoring Visit type - Emergency Visit Emergency Visit: Yes ED Registration Date: 04/22/18 Care time: The patient presented to the Emergency Department on the above date and was hospitalized for further evaluation of their emergent condition. - New Patient This patient is new to me today: Yes Date on this admission: 04/23/18 - Critical Care Critical Care patient: Yes Total Critical Care Time (in minutes): 40 Critical Care Statement: The care of this patient involved high complexity decision making to prevent further life threatening deterioration of the patient 's condition and/or to evaluate & treat vital organ system(s) failure or risk of failure.
[2018-04-23] MEDS: LABETALOL HCL INJECTION 1,000 MG in SODIUM CHLORIDE 800 ML IV SCH (13:46)
--- NOTE | 2018-04-23 14:16 | EKG ---
Test Reason : Blood Pressure : / mmHG Vent. Rate : 119 BPM Atrial Rate : 119 BPM P-R Int : 162 ms QRS Dur : 122 ms QT Int : 354 ms P-R-T Axes : 080 018 194 degrees QTc Int : 497 ms SINUS TACHYCARDIA LEFT ATRIAL ENLARGEMENT LEFT VENTRICULAR HYPERTROPHY WITH QRS WIDENING AND REPOLARIZATION ABNORMALITY INFERIOR INFARCT , AGE UNDETERMINED ABNORMAL ECG NO PREVIOUS ECGS AVAILABLE Confirmed by ALVINO SANTILLAN MD ([id number]) on 04/23/2018 2:16:19 PM Referred By: Confirmed By:ALVINO SANTILLAN MD
[2018-04-23] MEDS ORDERED: fentaNYL CITRATE 250 MCG/5 ML VIAL ONE (15:01)
[2018-04-23] MEDS: FENTANYL INJECTION 500 MCG in DEXTROSE 5%-WATER - 90 ML IVPB SCH (15:06)
[2018-04-23] MEDS: SODIUM CHLORIDE 1,000 ML IV SCH (15:30)
--- NOTE | 2018-04-23 16:06 | PN ---
Progress Note (short form) - Note Progress Note: 62 WITH HTN STAGE 5 CKD ADMITTED WITH DEPRESSED MS ACCELERATED HTN VOLUME OVERLOAD INTUBATED DIALYZED LAST NIGHT XRAY WHITE OUT SEDATED ON A LABETALOL DRIP AROUSABLE FIO2 40% LABS REVIEWED SUGGEST TAPER OFF LABETALOL RESUME HIS ORAL MEDS HOLD THEM IN AM PRE HD NEED TO GET VOLUME OFF HIM SO CAN ATTEMPT TO WEAN OFF RESPIRATOR HAS A GROIN LINE PERMACATH AND PD CATHETER ONCE STABLE ECHO DEPRESSED EF CASE D/W NURSE AND RESIDENT
--- NOTE | 2018-04-23 17:05 | PN ---
Teaching Attending Note Name of Resident: Geni Sorensen ATTENDING PHYSICIAN STATEMENT I saw and evaluated the patient. I reviewed the resident's note and discussed the case with the resident. I agree with the resident's findings and plan as documented. SUBJECTIVE:intubated/sedated OBJECTIVE: Last Vital Signs Temp Pulse Resp BP Pulse Ox 98.4 F 68 14 125/62 98 04/23/18 15:00 04/23/18 16:00 04/23/18 16:00 04/23/18 16:00 04/23/18 13:00 Intake & Output 04/20/18 04/21/18 04/22/18 04/23/18 23:59 23:59 23:59 23:59 Intake Total 0 211.2 Output Total 150 500 Balance -150 -288.8 Weight 140 lb 149 lb 2 oz General alert. follows some commands HEENT +ETT some white sputum on suctioning. good gag reflex, EOMI, PERRL CV S1 S2 RRR no murmur/rub/gallop Lungs Coarse breath sounds anteriorly ABdomen soft NT/ND Extremities trace pitting edema ASSESSMENT AND PLAN: 62yo M with PMH CKD (has refused HD in the past), and CAD presenting with progressively worsening shortness of breath and altered mental status. in the ER was found to have SBP 240. code larkin was activated in the ER 1. ACute toxic/metabolic encephalopathy-s/p shiley placement 04/22 and emergent HD done. 2kg removal with some improvement. will place on labetolol ggt for more stable BP control. frequent neurochecks. low suspicion for CVA. moving all 4 extremities. neuro on board 2. HTN crisis- BP labile. start labetolol ggt for more stable control. titrate with goal SBP 170. slowly lower BP 3. acute on CKD stage V- s/p HD initiation. likely repeat HD today. plan per nephro team. will need to speak to patient if agreeable to [facility] HD as would be necessary to prevent repeat episodes but has been resistant the past year 4. Elevated troponin- likely demand ischemia. slight uptrend in troponin 0.09- 0.45. cont to trend till it peaks. obtain echo 5. Acute respiratory failure- possible early ARDS. saturating well on 60% FIO2. titrate down as tolerated. vent managmenet per ICU. sedation 6. Normocytic anemia- likely diluational. no signs of bleeding. trend Hgb. no indication for txn 7. dementia- hold aricept 8. DVT ppx- hep sq 9. MICU monitoring. The care of this patient involved high complexity decision making to prevent further life threatening deterioration of the patient's condition and/or to evaluate & treat vital organ system(s) failure or risk of failure. Critical care time spent in reviewing chart, evaluating patient and formulating plan - 40 minutes.
[2018-04-23] MEDS: PROPOFOL 1,000,000 MCG/100 ML VIAL IVPB SCH ×2 (17:40→21:52)
--- NOTE | 2018-04-23 18:08 | PN ---
Physical Exam: SUBJECTIVE: Patient seen and examined. Received hemodialysis with 2L of fluid removed. Was intubated with propofol titrated up to 45mcg. Pt was on fio2-100 OBJECTIVE: Vital Signs Period Temp Pulse Resp BP Sys/Wyatt Pulse Ox Last 24 Hr 97.1 F-99.2 F 66-110 14-24 108-216/56-106 93-100 Vital Signs Temp 99.7 F H 04/23/18 19:00 Pulse 61 04/23/18 21:00 Resp 14 04/23/18 21:00 BP 130/55 04/23/18 21:00 Pulse Ox 98 04/23/18 13:00 Intake & Output 04/22/18 04/23/18 04/23/18 23:59 11:59 23:59 Intake Total 0 211.2 695 Output Total 150 200 300 Balance -150 11.2 395 Weight 63.503 kg 67.642 kg Intake: IV 211.2 595 DIPRIVAN - 1,000,000 mcg 211.2 170 In 100 ml @ 5 MCG/KG/MIN IVPB TITR SHERON Rx#: [id number] Normal Saline - 1,000 ml 80 @ 42 mls/hr IV ASDIR SHERON Rx#:[id number] Normodyne Injection - 1, 330 000 mg In Normal Saline - 800 ml @ 1 MG/MIN 60 mls /hr IV TITR SHERON Rx#: [id number] Normodyne Injection - 1, 0 000 mg In Normal Saline - 800 ml @ 2 MG/MIN 120 mls/hr IV TITR SHERON Rx#: [id number] iv fentanyl 15 IVPB 100 Oral 0 Output: Urine 150 200 300 Mcbride 150 200 300 Other: Voiding Method Indwelling Catheter Indwelling Catheter Indwelling Catheter Bowel Movement No Height 1.63 m Body Mass Index (BMI) 24.0 Weight Measurement Method Built in [facility] Built in [facility] GENERAL: Intubated, Sedated but arousable, good gag reflex HEAD: Normal with no signs of trauma. EYES: Reactive bilaterally ENT: ET- RR-14, TV-450, PEEP-5, PSV-7, fio2-100 LUNGS: Crackles HEART: Regular rate and rhythm, S1, S2 ,+S3/S4 ABDOMEN: Soft, nontender, nondistended, normoactive bowel sounds EXTREMITIES: 2+ pulses, warm, well-perfused, no edema. NEUROLOGICAL: Intubated and sedated with good gag reflex CBC, BMP 04/23/18 05:30 04/23/18 05:30 Laboratory Results - last 24 hr 04/22/18 04/22/18 04/22/18 16:40 18:10 18:10 WBC RBC Hgb Hct MCV MCH MCHC RDW Plt Count MPV Absolute Neuts (auto) Neutrophils % Lymphocytes % Monocytes % Eosinophils % Basophils % Nucleated RBC % PT with INR INR PTT (Actin FS) Anticoagulation Therapy Puncture Site ABG pH ABG pCO2 at Pt Temp ABG pO2 at Pt Temp ABG HCO3 ABG O2 Sat (Measured) ABG O2 Content ABG Base Excess Medardo Test O2 Delivery Device Oxygen Flow Rate Vent Mode Vent Rate Mechanical Rate PEEP Pressure Support Vent Sodium Potassium Chloride Carbon Dioxide Anion Gap BUN Creatinine Creat Clearance w eGFR Random Glucose Calcium Phosphorus Magnesium Total Bilirubin AST ALT Alkaline Phosphatase Troponin I Total Protein Albumin Urine Color Ltyellow Urine Appearance Cloudy Urine pH 6.0 Ur Specific [place] 1.012 Urine Protein 3+ H Urine Glucose (UA) 1+ H Urine Ketones Negative Urine Blood 1+ H Urine Nitrite Negative Urine Bilirubin Negative Urine Urobilinogen Negative Ur Leukocyte Esterase Negative Urine WBC (Auto) 7 Urine RBC (Auto) 10 Urine Mucus Rare Opiates Screen Negative Methadone Screen Negative Barbiturate Screen Negative Phencyclidine Screen Negative Ur Amphetamines Screen Negative MDMA (Ecstasy) Screen Negative Benzodiazepines Screen Negative Cocaine Screen Negative U Marijuana (THC) Screen Negative Blood Type O POSITIVE 04/22/18 04/23/18 04/23/18 20:01 05:30 05:30 WBC 6.9 RBC 3.88 L Hgb 11.0 L D Hct 33.9 L D MCV 87.2 MCH 28.3 MCHC 32.4 RDW 18.1 H Plt Count 142 D MPV 8.0 Absolute Neuts (auto) 5.6 Neutrophils % 81.3 D Lymphocytes % 7.2 L D Monocytes % 10.0 Eosinophils % 0.8 Basophils % 0.7 Nucleated RBC % 0 PT with INR 13.20 H INR 1.17 H PTT (Actin FS) 29.2 Anticoagulation Therapy Puncture Site ABG pH ABG pCO2 at Pt Temp ABG pO2 at Pt Temp ABG HCO3 ABG O2 Sat (Measured) ABG O2 Content ABG Base Excess Medardo Test O2 Delivery Device Oxygen Flow Rate Vent Mode Vent Rate Mechanical Rate PEEP Pressure Support Vent Sodium Potassium Chloride Carbon Dioxide Anion Gap BUN Creatinine Creat Clearance w eGFR Random Glucose Calcium Phosphorus Magnesium Total Bilirubin AST ALT Alkaline Phosphatase Troponin I Cancelled Total Protein Albumin Urine Color Urine Appearance Urine pH Ur Specific [place] Urine Protein Urine Glucose (UA) Urine Ketones Urine Blood Urine Nitrite Urine Bilirubin Urine Urobilinogen Ur Leukocyte Esterase Urine WBC (Auto) Urine RBC (Auto) Urine Mucus Opiates Screen Methadone Screen Barbiturate Screen Phencyclidine Screen Ur Amphetamines Screen MDMA (Ecstasy) Screen Benzodiazepines Screen Cocaine Screen U Marijuana (THC) Screen Blood Type 04/23/18 04/23/18 04/23/18 05:30 05:30 06:40 WBC RBC Hgb Hct MCV MCH MCHC RDW Plt Count MPV Absolute Neuts (auto) Neutrophils % Lymphocytes % Monocytes % Eosinophils % Basophils % Nucleated RBC % PT with INR INR PTT (Actin FS) Anticoagulation Therapy No Result Required. Puncture Site Right radial ABG pH 7.31 L ABG pCO2 at Pt Temp 39.9 ABG pO2 at Pt Temp 428.0 H* ABG HCO3 19.7 L ABG O2 Sat (Measured) 100.0 H* ABG O2 Content 16.2 ABG Base Excess -5.5 L Medardo Test Positive O2 Delivery Device Vent Oxygen Flow Rate 100% Vent Mode No Result Required. Vent Rate 14 Mechanical Rate No Result Required. PEEP 5.0 Pressure Support Vent 450 Sodium 141 Potassium 4.8 Chloride 107 Carbon Dioxide 22 Anion Gap 12 BUN 78 H Creatinine 10.5 H* Creat Clearance w eGFR 5.00 Random Glucose 70 L D Calcium 7.4 L Phosphorus 6.7 H Magnesium 1.7 L Total Bilirubin 0.4 AST 15 ALT 15 D Alkaline Phosphatase 94 D Troponin I 0.45 H D Total Protein 5.8 L D Albumin 2.5 L D Urine Color Urine Appearance Urine pH Ur Specific [place] Urine Protein Urine Glucose (UA) Urine Ketones Urine Blood Urine Nitrite Urine Bilirubin Urine Urobilinogen Ur Leukocyte Esterase Urine WBC (Auto) Urine RBC (Auto) Urine Mucus Opiates Screen Methadone Screen Barbiturate Screen Phencyclidine Screen Ur Amphetamines Screen MDMA (Ecstasy) Screen Benzodiazepines Screen Cocaine Screen U Marijuana (THC) Screen Blood Type 04/23/18 10:30 WBC RBC Hgb Hct MCV MCH MCHC RDW Plt Count MPV Absolute Neuts (auto) Neutrophils % Lymphocytes % Monocytes % Eosinophils % Basophils % Nucleated RBC % PT with INR INR PTT (Actin FS) Anticoagulation Therapy Puncture Site ABG pH ABG pCO2 at Pt Temp ABG pO2 at Pt Temp ABG HCO3 ABG O2 Sat (Measured) ABG O2 Content ABG Base Excess Medardo Test O2 Delivery Device Oxygen Flow Rate Vent Mode Vent Rate Mechanical Rate PEEP Pressure Support Vent Sodium Potassium Chloride Carbon Dioxide Anion Gap BUN Creatinine Creat Clearance w eGFR Random Glucose Calcium Phosphorus Magnesium Total Bilirubin AST ALT Alkaline Phosphatase Troponin I 0.39 H Total Protein Albumin Urine Color Urine Appearance Urine pH Ur Specific [place] Urine Protein Urine Glucose (UA) Urine Ketones Urine Blood Urine Nitrite Urine Bilirubin Urine Urobilinogen Ur Leukocyte Esterase Urine WBC (Auto) Urine RBC (Auto) Urine Mucus Opiates Screen Methadone Screen Barbiturate Screen Phencyclidine Screen Ur Amphetamines Screen MDMA (Ecstasy) Screen Benzodiazepines Screen Cocaine Screen U Marijuana (THC) Screen Blood Type Active Medications Generic Name Dose Route Start Last Admin Trade Name Freq PRN Reason Stop Dose Admin Chlorhexidine Gluconate 1 applic 04/22/18 22:00 Hibiclens For Decolonization - TP HS SHERON Heparin Sodium (Porcine) 5,000 unit 04/22/18 22:00 04/23/18 16:30 Heparin - SQ Not Given BID SHERON Sodium Chloride 1,000 mls @ 42 mls/hr 04/22/18 14:00 04/23/18 15:30 Normal Saline - IV 42 mls/hr ASDIR SHERON Administration Propofol 1,000,000 mcg in 100 mls @ 0 mls/hr 04/22/18 14:30 04/23/18 17:40 Diprivan - IVPB 40 mcg/kg/min TITR SHERON 15.241 mls/hr Administration Protocol 5 MCG/KG/MIN Labetalol HCl 1,000 mg/ Sodium 1,000 mls @ 60 mls/hr 04/23/18 13:30 04/23/18 17:13 Chloride IV 0 mg/min TITR SHERON 0 mls/hr Infusion 1 MG/MIN Fentanyl 500 mcg/ Dextrose 100 mls @ 5 mls/hr 04/23/18 14:45 04/23/18 15:06 IVPB 5 mls/hr TITR SHERON Administration Protocol 25 MCG/HR Mupirocin 1 applic 04/22/18 22:00 04/23/18 10:20 Bactroban Ointment (For Decolonization) - NS 04/27/18 21:59 1 applic BID SHERON Administration Pantoprazole Sodium 40 mg 04/23/18 11:30 04/23/18 12:37 Protonix Iv IVPUSH 40 mg DAILY SHERON Administration Head CT: negative for intracranial bleed ASSESSMENT/PLAN: 62 yo M h/o CKD stage 5, CAD, [place] admitted to ICU for AMS with hypertensive emergency and uremia. Acute Metabolic Encephalopathy - 2/2 hypertensive /uremic encephalopathy -Failed sedation vacation in am with tachycardia, diaphoresis and tachypnea - Started on propofol gtt- titrate down -Add fentanyl - For weaning trial Uremia -Pt received hemodialysis yesterday, for another session today - HD catheter in place for urgent dialysis- uremia/cr-improving -Monitor Hypertensive encephalopathy -Pt presented with SBP over 200 -SBP over 200 in the am, Pt started on iv hydralazine Q6H - Started on propofol gtt, -on labetalol gtt * do not decrease BP by > 25% of SBP * hold parameters given as physician instruction *Goal SBP 170 for today * Stop hydralazine to avoid too rapid drop in BP since Pt has been chronically very high in past Acute hypoxic respiratory failure, -intubated and sedated -ABG in am showing elevated pO2, with mixed picture -Likely secondary to acute metabolic encephalopathy -Failed sedation vacation in am with tachycardia, diaphoresis and tachypnea - Started on propofol gtt, -Monitor for ARDs - ARDS vent settings -Reduce Fi02 ODILIA on CKD with uremic encephalopathy -Now stage 5 CKD on HD - unknown Cr baseline, h/o dialysis, 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 [facility] - HD Elevated troponin - Likely demand ischemia, or related to poor kidney function with poor excretion - peaked-0.45>>0.39 HTN - Hold oral coreg, norvasc, hydralazine for now -Cont labetolol gtt Dementia - Hold aricept due to NPO BPH - Hold flomax due to NPO CAD s/p [place] - on ASA but NPO for meds now FEN - Hold IVF due to hypertension - Replete lytes PRN, or dialyze as needed - NPO DVT ppx - heparin bid Dispo ICU, to wean off vent Visit type - Emergency Visit Emergency Visit: Yes ED Registration Date: 04/22/18 Care time: The patient presented to the Emergency Department on the above date and was hospitalized for further evaluation of their emergent condition. - New Patient This patient is new to me today: Yes Date on this admission: 04/23/18 - Critical Care Critical Care patient: Yes Total Critical Care Time (in minutes): 45 - Discharge Referral Referred to [facility] No
[2018-04-23] MEDS: CHLORHEXIDINE GLUCONATE 4% CLEANSER FOR DECOLONIZATION TP SCH (21:52)
[2018-04-24] MEDS ORDERED: fentaNYL CITRATE 250 MCG/5 ML VIAL ONE ×2 (03:19→20:37)
[2018-04-24 06:16] LABS: HEMATOCRIT 32.1 % (35.4-49); HEMOGLOBIN 10.5 GM/dL (11.7-16.9); MCH 28.7 pg (25.7-33.7); MCHC 32.8 g/dl (32.0-35.9); MEAN CELL VOLUME 87.5 fl (80-96); MEAN PLT VOLUME 8.1 fl (7.5-11.1); PLATELET COUNT 129 K/MM3 (134-434); RBC 3.67 M/mm3 (4.00-5.60); RDW 18.2 % (11.9-15.9); WHITE BLOOD COUNT 7.4 K/mm3 (4.0-10.0)
[2018-04-24 06:46] LABS: CHLORIDE 106 mmol/L (98-107); POTASSIUM 4.6 mmol/L (3.5-5.1); SODIUM 140 mmol/L (136-145)
[2018-04-24 06:54] LABS: ALBUMIN 2.2 g/dl (3.4-5.0); ALK PHOS 83 U/L (45-117); ANION GAP 13 (8-16); BILIRUBIN,TOTAL 0.5 mg/dL (0.2-1.0); BLOOD UREA NITROGEN 85 mg/dL (7-18); CALCIUM 7.4 mg/dL (8.5-10.1); CO2 21 mmol/L (21-32); GLUCOSE,RANDOM 114 mg/dL (74-106); PHOSPHOROUS 7.3 mg/dL (2.5-4.9); SGOT/AST 11 U/L (15-37); SGPT/ALT 12 U/L (12-78); TOT PROT 5.4 g/dl (6.4-8.2)
[2018-04-24 07:33] LABS: CREATININE 11.3 mg/dL (0.7-1.3)
--- NOTE | 2018-04-24 08:45 | PN ---
Physical Exam: SUBJECTIVE: Patient seen and examined. Still sedated and intubated. Had a drop of BP with addition of fentanyl. Still on lopressor drip. Hydralazine stopped yesterday. Pt for hemodialysis today. OBJECTIVE: Vital Signs Period Temp Pulse Resp BP Sys/Wyatt Pulse Ox Last 24 Hr 97.8 F-99.8 F 58-102 14-27 108-182/49-102 93-99 Vital Signs Temp 100.1 F H 04/24/18 21:19 Pulse 75 04/24/18 21:19 Resp 14 04/24/18 21:19 BP 124/55 04/24/18 21:19 Pulse Ox 99 04/24/18 08:27 Intake & Output 04/23/18 04/24/18 04/24/18 23:59 11:59 23:59 Intake Total 308 067 7284 Output Total 650 125 250 Balance 45 565 1140 Weight 61.5 kg 61.235 kg Intake: IV 210 311 7488 DIPRIVAN - 1,000,000 mcg 170 100 291 In 100 ml @ 5 MCG/KG/MIN IVPB TITR SHERON Rx#: [id number] Normal Saline - 1,000 ml 80 420 634 @ 42 mls/hr IV ASDIR SHERON Rx#:[id number] Normodyne Injection - 1, 330 000 mg In Normal Saline - 800 ml @ 1 MG/MIN 60 mls /hr IV TITR SHERON Rx#: [id number] Normodyne Injection - 1, 0 000 mg In Normal Saline - 800 ml @ 2 MG/MIN 120 mls/hr IV TITR SHERON Rx#: [id number] iv fentanyl 15 50 145 IVPB 100 Tube Feeding 320 Tube Irrigant 120 Output: Urine 650 125 250 Mcbride 650 125 250 Other: Voiding Method Indwelling Catheter Indwelling Catheter Indwelling Catheter Height 1.63 m Body Mass Index (BMI) 23.1 GENERAL: The patient is intubated and sedated OGT in place. Pt now on tube feeds EYES: Open eyes to call ENT: ETT and OGT in place. LUNGS: Breath sounds equal, clear to auscultation bilaterally HEART: Regular rate and rhythm, S1, S2 without murmur ABDOMEN: Soft, nontender, nondistended, normoactive bowel sounds. Mcbride catheter in place draining clear urine. EXTREMITIES: 2+ pulses, warm, well-perfused, no edema. NEUROLOGICAL: Intubated and sedated but arousable and able to obey commands. Able to move all extremities. CBC, BMP 04/24/18 05:30 04/24/18 05:30 Laboratory Results - last 24 hr 04/22/18 04/23/18 04/24/18 21:30 10:30 05:30 WBC 7.4 RBC 3.67 L Hgb 10.5 L Hct 32.1 L MCV 87.5 MCH 28.7 MCHC 32.8 RDW 18.2 H Plt Count 129 L MPV 8.1 Sodium Potassium Chloride Carbon Dioxide Anion Gap BUN Creatinine Creat Clearance w eGFR Random Glucose Calcium Phosphorus Magnesium Total Bilirubin AST ALT Alkaline Phosphatase Troponin I 0.39 H Total Protein Albumin Hep C Ab Diagnostic <0.1 Liver Fibrosis Interp 04/24/18 05:30 WBC RBC Hgb Hct MCV MCH MCHC RDW Plt Count MPV Sodium 140 Potassium 4.6 Chloride 106 Carbon Dioxide 21 Anion Gap 13 BUN 85 H Creatinine 11.3 H* Creat Clearance w eGFR 4.60 Random Glucose 114 H D Calcium 7.4 L Phosphorus 7.3 H Magnesium 2.0 Total Bilirubin 0.5 D AST 11 L D ALT 12 Alkaline Phosphatase 83 Troponin I Total Protein 5.4 L Albumin 2.2 L Hep C Ab Diagnostic Liver Fibrosis Interp Current Medications Chlorhexidine Gluconate (Hibiclens For Decolonization -) 1 applic TP HS SHERON Last Admin: 04/23/18 21:52 Dose: 1 applic Heparin Sodium (Porcine) (Heparin -) 5,000 unit SQ BID SHERON Last Admin: 04/23/18 21:52 Dose: 5,000 unit Sodium Chloride (Normal Saline -) 1,000 mls @ 42 mls/hr IV ASDIR SHERON Last Admin: 04/23/18 15:30 Dose: 42 mls/hr Propofol (Diprivan -) 1,000,000 mcg in 100 mls @ 0 mls/hr IVPB TITR SHERON; Protocol Last Admin: 04/23/18 21:52 Dose: 25 mcg/kg/min, 9.525 mls/hr Labetalol HCl 1,000 mg/ Sodium (Chloride) 1,000 mls @ 60 mls/hr IV TITR SHERON Last Infusion: 04/23/18 17:13 Dose: 0 mg/min, 0 mls/hr Fentanyl 500 mcg/ Dextrose 100 mls @ 5 mls/hr IVPB TITR SHERON; Protocol Last Admin: 04/23/18 15:06 Dose: 5 mls/hr Mupirocin (Bactroban Ointment (For Decolonization) -) 1 applic NS BID [facility] Stop: 04/27/18 21:59 Last Admin: 04/23/18 21:52 Dose: 1 applic Pantoprazole Sodium (Protonix Iv) 40 mg IVPUSH DAILY [facility] Last Admin: 04/23/18 12:37 Dose: 40 mg Ambulatory Orders Amlodipine Besylate [Norvasc -] 10 mg PO DAILY 04/22/18 Aspirin Coated [Ecotrin -] 81 mg PO DAILY 04/22/18 Carvedilol [Coreg -] 12.5 mg PO BID 04/22/18 Donepezil HCl [Aricept -] 10 mg PO DAILY 04/22/18 Hydralazine HCl 50 mg PO TID 04/22/18 Tamsulosin HCl [Flomax] 0.4 mg PO DAILY 04/22/18 Atorvastatin Calcium 80 mg PO DAILY 04/23/18 Calcium Acetate [Phoslo -] 667 mg PO TIDCM 04/23/18 Isosorbide Mononitrate [Isosorbide Mononitrate ER] 60 mg PO DAILY 04/23/18 Sodium Bicarbonate - 650 mg PO TID 04/23/18 ASSESSMENT/PLAN: Head CT: negative for intracranial bleed ASSESSMENT/PLAN: 62 yo M h/o CKD stage 5, CAD, [place] admitted to ICU for AMS with hypertensive emergency and uremia. Acute Metabolic Encephalopathy - 2/2 hypertensive /uremic encephalopathy -Failed sedation vacation in am with tachycardia, diaphoresis and tachypnea - Started on propofol gtt- titrate down - Cont fentanyl - For weaning trial Uremia -Pt received one hemodialysis on session, had another session today - Planning for likely permacath in the OR likely tomorrow -To Dc lebatalol drip and commence home antihypertensives via OGT - Film Spooler on board Hypertensive encephalopathy -Pt presented with SBP of 200 -Resume home antihypertensives via NGT, coreg, norvasc, hydralazine Acute hypoxic respiratory failure, -intubated and sedated -Failed sedation vacation in am with tachycardia, diaphoresis and tachypnea - on propofol gtt, fentanyl -For weaning trial ODILIA on CKD with uremic encephalopathy -Now stage 5 CKD on HD - unknown Cr baseline, h/o dialysis, 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 [facility] - HD as needed Elevated troponin - Likely demand ischemia, or related to poor kidney function with poor excretion - peaked-0.45>>0.39 Dementia - Hold aricept due to NPO BPH - Hold flomax due to NPO CAD s/p [place] - on ASA but NPO for meds now FEN - Hold IVF due to hypertension - Replete lytes PRN, or dialyze as needed - NPO DVT ppx - heparin bid Dispo ICU, to wean off vent Visit type - Emergency Visit Emergency Visit: Yes ED Registration Date: 04/22/18 Care time: The patient presented to the Emergency Department on the above date and was hospitalized for further evaluation of their emergent condition. - New Patient This patient is new to me today: No - Critical Care Critical Care patient: Yes Total Critical Care Time (in minutes): 45 Critical Care Statement: The care of this patient involved high complexity decision making to prevent further life threatening deterioration of the patient 's condition and/or to evaluate & treat vital organ system(s) failure or risk of failure. - Discharge Referral Referred to [facility] No
--- NOTE | 2018-04-24 08:47 | PN ---
Progress Note, Physician Chief Complaint: unresponsiveness History of Present Illness: Gradually less alert over a couple of weeks in this man chronic kidney disease who has been advised to accept dialysis but up until now has declined. He became acutely unresponsive over the weekend. There were no signs of seizures or focal deficits reported. He remains sedated on fentanyl and propofol as when he is not, as per the nurse, he becomes dangerously agitated. - Current Medication List Current Medications: Active Medications Chlorhexidine Gluconate (Hibiclens For Decolonization -) 1 applic TP HS SHERON Last Admin: 04/23/18 21:52 Dose: 1 applic Heparin Sodium (Porcine) (Heparin -) 5,000 unit SQ BID SHERON Last Admin: 04/23/18 21:52 Dose: 5,000 unit Sodium Chloride (Normal Saline -) 1,000 mls @ 42 mls/hr IV ASDIR SHERON Last Admin: 04/23/18 15:30 Dose: 42 mls/hr Propofol (Diprivan -) 1,000,000 mcg in 100 mls @ 0 mls/hr IVPB TITR SHERON; Protocol Last Admin: 04/23/18 21:52 Dose: 25 mcg/kg/min, 9.525 mls/hr Labetalol HCl 1,000 mg/ Sodium (Chloride) 1,000 mls @ 60 mls/hr IV TITR SHERON Last Infusion: 04/23/18 17:13 Dose: 0 mg/min, 0 mls/hr Fentanyl 500 mcg/ Dextrose 100 mls @ 5 mls/hr IVPB TITR SHERON; Protocol Last Admin: 04/23/18 15:06 Dose: 5 mls/hr Mupirocin (Bactroban Ointment (For Decolonization) -) 1 applic NS BID SHERON Stop: 04/27/18 21:59 Last Admin: 04/23/18 21:52 Dose: 1 applic Pantoprazole Sodium (Protonix Iv) 40 mg IVPUSH DAILY SHERON Last Admin: 04/23/18 12:37 Dose: 40 mg - Objective Vital Signs: Vital Signs Temperature 99.8 F H 04/24/18 07:00 Pulse Rate 67 04/24/18 08:27 Respiratory Rate 14 04/24/18 08:21 Blood Pressure 131/54 04/24/18 08:00 O2 Sat by Pulse Oximetry (%) 99 04/24/18 08:27 Neurological: Yes: Other (lying in bed on ventilator unresponsive, but currently on fentanyl and propofol making my exam virtually meaningless.) Labs: CBC, BMP 04/24/18 05:30 04/24/18 05:30 INR, PTT INR 1.17 (0.82-1.09) H 04/23/18 05:30 Problem List - Problems (1) ARDS (adult respiratory distress syndrome) Code(s): J80 - ACUTE RESPIRATORY DISTRESS SYNDROME (2) Renal failure Code(s): N19 - UNSPECIFIED KIDNEY FAILURE Qualifiers: Renal failure chronicity: acute on chronic (3) Respiratory failure Code(s): J96.90 - RESPIRATORY FAILURE, UNSP, UNSP W HYPOXIA OR HYPERCAPNIA Qualifiers: Chronicity: acute Respiratory failure complication: unspecified whether with hypoxia or hypercapnia Qualified Code(s): J96.00 - Acute respiratory failure, unspecified whether with hypoxia or hypercapnia (4) Toxic metabolic encephalopathy Code(s): G92 - TOXIC ENCEPHALOPATHY Assessment/Plan Likely uremic encephalopathy complicated by ARDS. THere is no neurologic contranidication to dialysis. I do recommend getting EEG to r/o clinically silent seizures, but wouldn't hold up dialysis over this.
--- NOTE | 2018-04-24 09:45 | PN ---
Progress Note (short form) - Note Progress Note: 62 WITH HTN ESRD ADMITTED WITH DEPRESSED MS ACCELERATED HTN VOLUME OVERLOAD INTUBATED MONDAY XRAY WHITE OUT SEDATED DIALYZED SUN NIGHT THIS AM SEDATED BUT AROUSABLE WILL DIALYZE TODAY AND THEN GIVE MEDS VIA NG SHOULD THEN ATTEMPT WEANING XRAY MUCH IMPROVED DC FLUIDS CONTINUE FEEDS WITH ASPIRATION PRECAUTIONS CASE D/W NURSE AND RESIDENT
[2018-04-24] MEDS: HEPARIN NA (PORCINE) 5,000 UNITS/ML 1ML VIAL SQ SCH ×4 (10:19→22:37)
[2018-04-24] MEDS: PANTOPRAZOLE SODIUM 40 MG VIAL IVPUSH SCH (10:19)
[2018-04-24] MEDS: MUPIROCIN 2% TOPICAL OINTMENT FOR DECOLONIZATION NS SCH ×2 (10:19→21:32)
--- NOTE | 2018-04-24 12:01 | PN ---
Teaching Attending Note Name of Resident: Song Rodriguez ATTENDING PHYSICIAN STATEMENT I saw and evaluated the patient. I reviewed the resident's note and discussed the case with the resident. I agree with the resident's findings and plan as documented. SUBJECTIVE: Patient seen and examined in the ICU. Remains intubated, sedated but arousable. Currently on acute HD. Labetalol drip for BP control. OBJECTIVE: Intake & Output 04/21/18 04/22/18 04/23/18 04/24/18 23:59 23:59 23:59 23:59 Intake Total 0 906.2 690 Output Total 150 850 125 Balance -150 56.2 565 Weight 140 lb 149 lb 2 oz 135 lb 9.349 oz Last Vital Signs Temp Pulse Resp BP Pulse Ox 99.8 F H 75 16 133/57 99 04/24/18 07:00 04/24/18 11:55 04/24/18 11:55 04/24/18 11:55 04/24/18 08:27 Active Medications Amlodipine Besylate (Norvasc -) 10 mg NGT DAILY [facility] Carvedilol (Coreg -) 12.5 mg NGT BID [facility] Chlorhexidine Gluconate (Hibiclens For Decolonization -) 1 applic TP HS SHERON Last Admin: 04/23/18 21:52 Dose: 1 applic Heparin Sodium (Porcine) (Heparin -) 5,000 unit SQ BID SHERON Last Admin: 04/24/18 10:19 Dose: 5,000 unit Hydralazine HCl (Apresoline -) 50 mg NGT TID [facility] Propofol (Diprivan -) 1,000,000 mcg in 100 mls @ 0 mls/hr IVPB TITR [facility]; Protocol Last Admin: 04/23/18 21:52 Dose: 25 mcg/kg/min, 9.525 mls/hr Labetalol HCl 1,000 mg/ Sodium (Chloride) 1,000 mls @ 60 mls/hr IV TITR [facility] Last Infusion: 04/23/18 17:13 Dose: 0 mg/min, 0 mls/hr Fentanyl 500 mcg/ Dextrose 100 mls @ 5 mls/hr IVPB TITR [facility]; Protocol Last Admin: 04/23/18 15:06 Dose: 5 mls/hr Mupirocin (Bactroban Ointment (For Decolonization) -) 1 applic NS BID SHERON Stop: 04/27/18 21:59 Last Admin: 04/24/18 10:19 Dose: 1 applic Pantoprazole Sodium (Protonix Iv) 40 mg IVPUSH DAILY [facility] Last Admin: 04/24/18 10:19 Dose: 40 mg Gen: intubated, sedated Heart: RRR Lung: scattered rhonchi Abd: soft, nontender Ext: no edema Laboratory Results - last 24 hr 04/22/18 04/24/18 04/24/18 21:30 05:30 05:30 WBC 7.4 RBC 3.67 L Hgb 10.5 L Hct 32.1 L MCV 87.5 MCH 28.7 MCHC 32.8 RDW 18.2 H Plt Count 129 L MPV 8.1 Sodium 140 Potassium 4.6 Chloride 106 Carbon Dioxide 21 Anion Gap 13 BUN 85 H Creatinine 11.3 H* Creat Clearance w eGFR 4.60 Random Glucose 114 H D Calcium 7.4 L Phosphorus 7.3 H Magnesium 2.0 Total Bilirubin 0.5 D AST 11 L D ALT 12 Alkaline Phosphatase 83 Total Protein 5.4 L Albumin 2.2 L Hep C Ab Diagnostic <0.1 Liver Fibrosis Interp ASSESSMENT AND PLAN: Altered Mental Status Acute Respiratory Failure Hypertensive Urgency r/o Hypertensive vs Uremic Encephalopathy Acute on Chronic Renal Failure requiring HD +Troponins likely demand ischemia Dementia - Wean labetalol drip - HD per renal with ultrafiltration - monitor urine output, creatinine - Monitor CXR - daily sedation vacations to assess mental status - Spontaneous breathing trials today after HD - DVT/GI prophylaxis - Continue ICU monitoring Dr Mejia Critical care time spent in reviewing chart, evaluating patient and formulating plan 35 min
[2018-04-24] MEDS: PROPOFOL 1,000,000 MCG/100 ML VIAL IVPB SCH ×2 (12:41→16:40)
--- NOTE | 2018-04-24 12:58 | PN ---
Physical Exam: SUBJECTIVE: Patient seen and examined. remains intubated and sedated. Arousable to verbal stimuli. Currently on HD. Labetolol drip stopped. PO meds resumed. OBJECTIVE: Vital Signs Period Temp Pulse Resp BP Sys/Wyatt Pulse Ox Last 24 Hr 98.2 F-99.8 F 58-91 14-27 108-187/49-85 98-99 GENERAL: intubated, sedated, but arousable to verbal stimuli. EYES: PERRL, sclera anicteric, conjunctiva clear. ENT: oropharynx clear without exudates LUNGS: scattered rhonchi HEART: Regular rate and rhythm, S1, S2 without murmur ABDOMEN: Soft, no grimacing on palpation EXTREMITIES: R Femoral Line, 2+ pulses, warm, no edema Laboratory Results - last 24 hr 04/22/18 04/24/18 04/24/18 21:30 05:30 05:30 WBC 7.4 RBC 3.67 L Hgb 10.5 L Hct 32.1 L MCV 87.5 MCH 28.7 MCHC 32.8 RDW 18.2 H Plt Count 129 L MPV 8.1 Sodium 140 Potassium 4.6 Chloride 106 Carbon Dioxide 21 Anion Gap 13 BUN 85 H Creatinine 11.3 H* Creat Clearance w eGFR 4.60 Random Glucose 114 H D Calcium 7.4 L Phosphorus 7.3 H Magnesium 2.0 Total Bilirubin 0.5 D AST 11 L D ALT 12 Alkaline Phosphatase 83 Total Protein 5.4 L Albumin 2.2 L Hep C Ab Diagnostic <0.1 Liver Fibrosis Interp Active Medications Generic Name Dose Route Start Last Admin Trade Name Velq PRN Reason Stop Dose Admin Amlodipine Besylate 10 mg 04/24/18 10:00 Norvasc - NGT DAILY SHERON Carvedilol 12.5 mg 04/24/18 10:00 Coreg - NGT BID SHERON Chlorhexidine Gluconate 1 applic 04/22/18 22:00 04/23/18 21:52 Hibiclens For Decolonization - TP 1 applic HS SHERON Administration Heparin Sodium (Porcine) 5,000 unit 04/22/18 22:00 04/24/18 10:19 Heparin - SQ 5,000 unit BID SHERON Administration Hydralazine HCl 50 mg 04/24/18 14:00 Apresoline - NGT TID SHERON Propofol 1,000,000 mcg in 100 mls @ 0 mls/hr 04/22/18 14:30 04/24/18 12:41 Diprivan - IVPB 40 mcg/kg/min TITR SHERON 15.241 mls/hr Titration Protocol 5 MCG/KG/MIN Labetalol HCl 1,000 mg/ Sodium 1,000 mls @ 60 mls/hr 04/23/18 13:30 04/23/18 17:13 Chloride IV 0 mg/min TITR SHERON 0 mls/hr Infusion 1 MG/MIN Fentanyl 500 mcg/ Dextrose 100 mls @ 5 mls/hr 04/23/18 14:45 04/23/18 15:06 IVPB 5 mls/hr TITR SHERON Administration Protocol 25 MCG/HR Mupirocin 1 applic 04/22/18 22:00 04/24/18 10:19 Bactroban Ointment (For Decolonization) - NS 04/27/18 21:59 1 applic BID SHERON Administration Pantoprazole Sodium 40 mg 04/23/18 11:30 04/24/18 10:19 Protonix Iv IVPUSH 40 mg DAILY SHERON Administration ASSESSMENT/PLAN: ASSESSMENT/PLAN: NEURO -Acute toxic metabolic encephalopathy -likely secondary to a combination of hypertensive emergency and uremia -HD per renal with ultrafiltration -BP control -sedated on propofol, fentanyl -daily sedation vacations to assess mental status PULM -Acute respiratory failure -intubated -taper FiO2 to keep SpO2 >90% -spontaneous breathing trials as tolerated when mental status improved CV -Hypertensive urgency -Labetolol gtt stopped -Po meds resumed: coreg 12.5mg BID, Amlodipine 10mg -BP monitoring -ECHO: moderate to severe L ventricular systolic dysfunction -Acute on Chronic CKD -Dialysis today -HD as needed -monitor urine output, creatinine -renal on board -avoid nephrotoxins FEN -No iv fluids -monitor lytes -Tube feeds via OG PPX -hep sq -protonix iv cont icu monitoring Visit type - Emergency Visit Emergency Visit: Yes ED Registration Date: 04/22/18 Care time: The patient presented to the Emergency Department on the above date and was hospitalized for further evaluation of their emergent condition. - New Patient This patient is new to me today: No - Critical Care Critical Care patient: Yes Total Critical Care Time (in minutes): 40 Critical Care Statement: The care of this patient involved high complexity decision making to prevent further life threatening deterioration of the patient 's condition and/or to evaluate & treat vital organ system(s) failure or risk of failure.
[2018-04-24] MEDS ORDERED: PT OWN MED DRAWER 7, Y5N ONE (14:08)
[2018-04-24] MEDS: amLODIPine BESYLATE 10 MG TABLET (FP) NGT SCH (14:13)
[2018-04-24] MEDS: hydrALAZINE HCL 50 MG TABLET (FP) NGT SCH ×2 (14:13→21:33)
[2018-04-24] MEDS: CARVEDILOL 12.5 MG TABLET (FP) NGT SCH ×2 (14:29→21:30)
[2018-04-24] MEDS: LABETALOL HCL INJECTION 1,000 MG in SODIUM CHLORIDE 800 ML IV SCH (14:29)
--- NOTE | 2018-04-24 15:51 | PN ---
Teaching Attending Note Name of Resident: Geni Sorensen ATTENDING PHYSICIAN STATEMENT I saw and evaluated the patient. I reviewed the resident's note and discussed the case with the resident. I agree with the resident's findings and plan as documented with exceptions below. SUBJECTIVE: patient seen and examined. opens eyes when called, follows simple commands. Denies pain, but further ROS limited OBJECTIVE: Vital Signs Period Temp Pulse Resp BP Sys/Wyatt Pulse Ox Last 24 Hr 98.2 F-99.8 F 58-106 14-27 108-187/49-85 98-99 Intake & Output 04/21/18 04/22/18 04/23/18 04/24/18 23:59 23:59 23:59 23:59 Intake Total 0 906.2 690 Output Total 150 850 125 Balance -150 56.2 565 Weight 140 lb 149 lb 2 oz 135 lb General: intubated, awake to voice in bed, in no acute distress Chest: decreased effort, decreased breath sounds at bases Abdomen:soft, ND Extremities: no edema Neuro Opens eyes to voice, follows simple commands, facial symmetry, moves all extremities Home Medication List Medication Instructions Recorded Confirmed Type Amlodipine Besylate [Norvasc -] 10 mg PO DAILY 04/22/18 04/22/18 History Aspirin Coated [Ecotrin -] 81 mg PO DAILY 04/22/18 04/22/18 History Carvedilol [Coreg -] 12.5 mg PO BID 04/22/18 04/22/18 History Donepezil HCl [Aricept -] 10 mg PO DAILY 04/22/18 04/22/18 History Hydralazine HCl 50 mg PO TID 04/22/18 04/22/18 History Tamsulosin HCl [Flomax] 0.4 mg PO DAILY 04/22/18 04/22/18 History Atorvastatin Calcium 80 mg PO DAILY 04/23/18 04/23/18 History Calcium Acetate [Phoslo -] 667 mg PO TIDCM 04/23/18 04/23/18 History Isosorbide Mononitrate [Isosorbide 60 mg PO DAILY 04/23/18 04/23/18 History Mononitrate ER] Sodium Bicarbonate - 650 mg PO TID 04/23/18 04/23/18 History Active Medications Generic Name Dose Route Start Last Admin Trade Name Freq PRN Reason Stop Dose Admin Amlodipine Besylate 10 mg 04/24/18 10:00 04/24/18 14:13 Norvasc - NGT 10 mg DAILY SHERON Administration Carvedilol 12.5 mg 04/24/18 10:00 04/24/18 14:29 Coreg - NGT Not Given BID SHERON Chlorhexidine Gluconate 1 applic 04/22/18 22:00 04/23/18 21:52 Hibiclens For Decolonization - TP 1 applic HS SHERON Administration Heparin Sodium (Porcine) 5,000 unit 04/22/18 22:00 04/24/18 10:19 Heparin - SQ 5,000 unit BID SHERON Administration Hydralazine HCl 50 mg 04/24/18 14:00 04/24/18 14:13 Apresoline - NGT 50 mg TID SHERON Administration Propofol 1,000,000 mcg in 100 mls @ 0 mls/hr 04/22/18 14:30 04/24/18 12:41 Diprivan - IVPB 40 mcg/kg/min TITR [facility]ON 15.241 mls/hr Titration Protocol 5 MCG/KG/MIN Labetalol HCl 1,000 mg/ Sodium 1,000 mls @ 60 mls/hr 04/23/18 13:30 04/24/18 14:29 Chloride IV Not Given TITR SHERON 1 MG/MIN Fentanyl 500 mcg/ Dextrose 100 mls @ 5 mls/hr 04/23/18 14:45 04/23/18 15:06 IVPB 5 mls/hr TITR SHERON Administration Protocol 25 MCG/HR Mupirocin 1 applic 04/22/18 22:00 04/24/18 10:19 Bactroban Ointment (For Decolonization) - NS 04/27/18 21:59 1 applic BID SHERON Administration Pantoprazole Sodium 40 mg 04/23/18 11:30 04/24/18 10:19 Protonix Iv IVPUSH 40 mg DAILY SHERON Administration Laboratory Results - last 24 hr 04/22/18 04/24/18 04/24/18 21:30 05:30 05:30 WBC 7.4 RBC 3.67 L Hgb 10.5 L Hct 32.1 L MCV 87.5 MCH 28.7 MCHC 32.8 RDW 18.2 H Plt Count 129 L MPV 8.1 Sodium 140 Potassium 4.6 Chloride 106 Carbon Dioxide 21 Anion Gap 13 BUN 85 H Creatinine 11.3 H* Creat Clearance w eGFR 4.60 Random Glucose 114 H D Calcium 7.4 L Phosphorus 7.3 H Magnesium 2.0 Total Bilirubin 0.5 D AST 11 L D ALT 12 Alkaline Phosphatase 83 Total Protein 5.4 L Albumin 2.2 L Hep C Ab Diagnostic <0.1 Liver Fibrosis Interp CXR reviewed ASSESSMENT AND PLAN: 62yo M with PMH CKD (has refused HD in the past), and CAD presenting with progressively worsening shortness of breath and altered mental status. in the ER was found to have SBP 240. code chaya was activated in the ER -Acute toxic metabolic encephalopathy, likely uremic + hypertensive -Acute hypoxic respiratory failure, suspect fluid overload from ESRD +/- ARDS -Hypertensive emergency -Acute on CKD stage V -Elevated troponin, suspect demand ischemia from above -Normocytic anemia, suspect from CKD/dilutional -Dementia Plan: s/p sudhir 04/22 with emergent HD. Plan for second HD session today with fluid removal. Failed weaning sedation yesterday, awake, reattempt weaning post HD. Off labetalol drip. Resume home oral anti-hypertensives. No IVF. Discussed with Dr. Oleary, follow up for fci access, ?Permacth+/- PD. Follow up 2D echo. TUbe feeds, resume oral meds as tolerated. Trend h/h, hold aricept. DVTPPx heparin Dispo pending clinical improvement. The care of this patient involved high complexity decision making to prevent further life threatening deterioration of the patient's condition and/or to evaluate & treat vital organ system(s) failure or risk of failure. Critical care time spent in reviewing chart, evaluating patient and formulating plan - 40 minutes.
[2018-04-24] MEDS: FENTANYL INJECTION 500 MCG in DEXTROSE 5%-WATER - 90 ML IVPB SCH (16:41)
[2018-04-24] MEDS: CHLORHEXIDINE GLUCONATE 4% CLEANSER FOR DECOLONIZATION TP SCH (22:36)
[2018-04-25 05:49] LABS: HEMATOCRIT 30.8 % (35.4-49); HEMOGLOBIN 12.5 GM/dL (11.7-16.9); MCH 35.3 pg (25.7-33.7); MCHC 40.7 g/dl (32.0-35.9); MEAN CELL VOLUME 86.8 fl (80-96); MEAN PLT VOLUME 8.5 fl (7.5-11.1); PLATELET COUNT 154 K/MM3 (134-434); RBC 3.55 M/mm3 (4.00-5.60); RDW 18.2 % (11.9-15.9)
[2018-04-25] MEDS: hydrALAZINE HCL 50 MG TABLET (FP) NGT SCH ×3 (06:10→22:03)
[2018-04-25 06:16] LABS: ALK PHOS 98 U/L (45-117); ANION GAP 10 (8-16); BILIRUBIN,TOTAL 0.9 mg/dL (0.2-1.0); CHLORIDE 101 mmol/L (98-107); CO2 27 mmol/L (21-32); PHOSPHOROUS 6.2 mg/dL (2.5-4.9); SODIUM 138 mmol/L (136-145)
[2018-04-25 06:38] LABS: BLOOD UREA NITROGEN 59 mg/dL (7-18); CREATININE 8.9 mg/dL (0.7-1.3); POTASSIUM 3.9 mmol/L (3.5-5.1)
[2018-04-25 06:39] LABS: CALCIUM 6.6 mg/dL (8.5-10.1); MAGNESIUM 1.9 mg/dL (1.8-2.4); TOT PROT 5.3 g/dl (6.4-8.2)
[2018-04-25 06:40] LABS: GLUCOSE,RANDOM 136 mg/dL (74-106)
[2018-04-25] MEDS ORDERED: PT OWN MED DRAWER 7, Y5N ONE (08:04)
--- NOTE | 2018-04-25 08:47 | PN ---
Physical Exam: SUBJECTIVE: Patient seen and examined. Tmax 100.9 Remains intubated and sedated. Tolerated HD yesterday. Dialysis scheduled for today. OBJECTIVE: Vital Signs Period Temp Pulse Resp BP Sys/Wyatt Pulse Ox Last 24 Hr 100.1 F-100.3 F 63-106 14-21 108-187/47-89 GENERAL: intubated, sedated, arousable to verbal stimuli. EYES: PERRL, sclera anicteric, conjunctiva clear. ENT: oropharynx clear without exudates LUNGS: scattered rhonchi HEART: Regular rate and rhythm, S1, S2 without murmur ABDOMEN: Soft, no grimacing on palpation EXTREMITIES: R Femoral Line, 2+ pulses, warm, no edema Laboratory Results - last 24 hr 04/25/18 04/25/18 05:30 05:30 WBC 9.0 RBC 3.55 L Hgb 12.5 D Hct 30.8 L MCV 86.8 MCH 35.3 H D MCHC 40.7 H RDW 18.2 H Plt Count 154 MPV 8.5 Sodium 138 Potassium 3.9 Chloride 101 Carbon Dioxide 27 D Anion Gap 10 BUN 59 H D Creatinine 8.9 H* D Creat Clearance w eGFR 6.06 Random Glucose 136 H Calcium 6.6 L* Phosphorus 6.2 H Magnesium 1.9 Total Bilirubin 0.9 D Alkaline Phosphatase 98 Total Protein 5.3 L Albumin 2.0 L Active Medications Generic Name Dose Route Start Last Admin Trade Name Freq PRN Reason Stop Dose Admin Amlodipine Besylate 10 mg 04/24/18 10:00 04/24/18 14:13 Norvasc - NGT 10 mg DAILY SHERON Administration Carvedilol 12.5 mg 04/24/18 10:00 04/24/18 21:30 Coreg - NGT 12.5 mg BID SHERON Administration Chlorhexidine Gluconate 1 applic 04/22/18 22:00 04/24/18 22:36 Hibiclens For Decolonization - TP 1 applic HS SHERON Administration Heparin Sodium (Porcine) 5,000 unit 04/22/18 22:00 04/24/18 22:37 Heparin - SQ 5,000 unit BID SHERON Administration Hydralazine HCl 50 mg 04/24/18 14:00 04/25/18 06:10 Apresoline - NGT 50 mg TID SHERON Administration Propofol 1,000,000 mcg in 100 mls @ 0 mls/hr 04/22/18 14:30 04/24/18 17:15 Diprivan - IVPB 40 mcg/kg/min TITR SHERON 15.241 mls/hr Titration Protocol 5 MCG/KG/MIN Fentanyl 500 mcg/ Dextrose 100 mls @ 5 mls/hr 04/23/18 14:45 04/24/18 16:41 IVPB Not Given TITR SHERON Protocol 25 MCG/HR Mupirocin 1 applic 04/22/18 22:00 04/24/18 21:32 Bactroban Ointment (For Decolonization) - NS 04/27/18 21:59 1 applic BID SHERON Administration Pantoprazole Sodium 40 mg 04/23/18 11:30 04/24/18 10:19 Protonix Iv IVPUSH 40 mg DAILY SHERON Administration ASSESSMENT/PLAN: NEURO -Acute toxic metabolic encephalopathy -likely secondary to a combination of hypertensive emergency and uremia -HD per renal with ultrafiltration -BP control -sedated on propofol, fentanyl -daily sedation vacations to assess mental status PULM -Acute respiratory failure -intubated -taper FiO2 to keep SpO2 >90% -spontaneous breathing trials as tolerated when mental status improved CV -Hypertensive urgency -Cont. coreg 12.5mg BID, Amlodipine 10mg, Hydralazine 50 TID -BP monitoring -ECHO: moderate to severe L ventricular systolic dysfunction ID -tmax 100.9 -Bcx, Ucx -IV abx: zosyn -Acute on Chronic CKD -HD as needed -monitor urine output, creatinine -renal on board -avoid nephrotoxins FEN -No iv fluids -monitor lytes -Tube feeds via OG PPX -hep sq -protonix iv cont icu monitoring Visit type - Emergency Visit Emergency Visit: Yes ED Registration Date: 04/22/18 Care time: The patient presented to the Emergency Department on the above date and was hospitalized for further evaluation of their emergent condition. - New Patient This patient is new to me today: No - Critical Care Critical Care patient: Yes Total Critical Care Time (in minutes): 40 Critical Care Statement: The care of this patient involved high complexity decision making to prevent further life threatening deterioration of the patient 's condition and/or to evaluate & treat vital organ system(s) failure or risk of failure.
[2018-04-25 08:52] LABS: SGOT/AST 18 U/L (15-37); SGPT/ALT 22 U/L (12-78)
[2018-04-25] MEDS: amLODIPine BESYLATE 10 MG TABLET (FP) NGT SCH (09:09)
[2018-04-25] MEDS: PANTOPRAZOLE SODIUM 40 MG VIAL IVPUSH SCH (09:10)
[2018-04-25] MEDS: CARVEDILOL 12.5 MG TABLET (FP) NGT SCH ×2 (09:10→22:03)
[2018-04-25] MEDS: HEPARIN NA (PORCINE) 5,000 UNITS/ML 1ML VIAL SQ SCH ×3 (09:11→22:04)
[2018-04-25] MEDS: MUPIROCIN 2% TOPICAL OINTMENT FOR DECOLONIZATION NS SCH ×2 (09:11→22:04)
[2018-04-25] MEDS ORDERED: LABETALOL HCL 5 MG/1 ML (100MG/20 ML VIAL) IVPUSH ONE (10:10)
[2018-04-25] MEDS ORDERED: ACETAMINOPHEN 325 MG TABLET (FP) PO PRN (10:12)
[2018-04-25] MEDS ORDERED: VANCOMYCIN 1 GM PREMIX - 1 GM/200 ML BAG IVPB ONE (11:05)
--- NOTE | 2018-04-25 11:10 | PN ---
Teaching Attending Note Name of Resident: Song Rodriguez ATTENDING PHYSICIAN STATEMENT I saw and evaluated the patient. I reviewed the resident's note and discussed the case with the resident. I agree with the resident's findings and plan as documented. SUBJECTIVE: Pt seen and examined in the ICU. Remains intubated, sedated but arousable and following commands off sedation. Hypertensive when awake. Febrile overnight. OBJECTIVE: Vital Signs Period Temp Pulse Resp BP Sys/Wyatt Pulse Ox Last 24 Hr 100.1 F-101.8 F 63-106 14-27 108-222/47-100 94-98 Intake & Output 04/22/18 04/23/18 04/24/18 04/25/18 23:59 23:59 23:59 23:59 Intake Total 0 906.2 2080 1165 Output Total 150 850 375 100 Balance -150 56.2 1705 1065 Weight 63.503 kg 67.642 kg 61.235 kg 59.4 kg Gen: intubated, sedated Heart: RRR Lung: decreased breath sounds at the bases Abd: soft, nontender Ext: no edema, right femoral HD catheter CBC, BMP 04/25/18 05:30 04/25/18 05:30 Active Medications Acetaminophen (Tylenol -) 650 mg PO Q4H PRN PRN Reason: FEVER Amlodipine Besylate (Norvasc -) 10 mg NGT DAILY [facility] Last Admin: 04/25/18 09:09 Dose: 10 mg Carvedilol (Coreg -) 12.5 mg NGT BID [facility] Last Admin: 04/25/18 09:10 Dose: 12.5 mg Chlorhexidine Gluconate (Hibiclens For Decolonization -) 1 applic TP HS [facility] Last Admin: 04/24/18 22:36 Dose: 1 applic Heparin Sodium (Porcine) (Heparin -) 5,000 unit SQ BID [facility] Last Admin: 04/25/18 09:11 Dose: 5,000 unit Hydralazine HCl (Apresoline -) 50 mg NGT TID [facility] Last Admin: 04/25/18 06:10 Dose: 50 mg Propofol (Diprivan -) 1,000,000 mcg in 100 mls @ 0 mls/hr IVPB TITR [facility]; Protocol Last Titration: 04/24/18 17:15 Dose: 40 mcg/kg/min, 15.241 mls/hr Fentanyl 500 mcg/ Dextrose 100 mls @ 5 mls/hr IVPB TITR SHERON; Protocol Last Admin: 04/24/18 16:41 Dose: Not Given Mupirocin (Bactroban Ointment (For Decolonization) -) 1 applic NS BID [facility] Stop: 04/27/18 21:59 Last Admin: 04/25/18 09:11 Dose: 1 applic Pantoprazole Sodium (Protonix Iv) 40 mg IVPUSH DAILY [facility] Last Admin: 04/25/18 09:10 Dose: 40 mg ASSESSMENT AND PLAN: Altered Mental Status Acute Respiratory Failure Hypertensive Urgency r/o Hypertensive vs Uremic Encephalopathy Acute on Chronic Renal Failure requiring HD +Troponins likely demand ischemia Dementia - panculture - start empiric antibiotics - HD per renal with ultrafiltration - monitor urine output, creatinine - taper FiO2 to keep SpO2 >90% - BP control - daily sedation vacations to assess mental status - spontaneous breathing trials as tolerated when mental status improved - enteral feeds - DVT/GI prophylaxis - continue ICU monitoring - will need to clarify with pt if he wishes to continue HD as he had refused in past as outpt critical care time spent in reviewing chart, evaluating patient and formulating plan 35 min
[2018-04-25] MEDS: ACETAMINOPHEN 1000 MG/100 ML VIAL (NON FORMULARY) IVPB PRN ×2 (11:30→17:23)
[2018-04-25] MEDS ORDERED: cefTAZidime PENTAHYDRATE 1 GM/50ML PRE-DOCKED (RESTRICTED TO ID) IVPB ONE (11:30)
[2018-04-25] MEDS: PROPOFOL 1,000,000 MCG/100 ML VIAL IVPB SCH ×2 (11:30→17:24)
--- NOTE | 2018-04-25 14:41 | CON.ID ---
Consult Consult Specialty:: infectious diseases Reason for Consultation:: fever,sepsis - History of Present Illness Chief Complaint: patient intubated/sedated History of Present Illness: 62yo M with PMH CKD and CAD who presented to [facility] with progressively worsening shortness of breath. Pt was noted to be in USOH, but then started feeling feverish and dyspneic. At home, pt was noted to be pouring water over his head and went to lay down. found patient unresponsive. She denies that her had any other complaints. patient was according to the notes and the resident history brought to the hospital for hypertensive emergency he also got urgent dialysis during that time. patient continued to have ams and was intubated and has been intubated now for almost 4 days currently patient is intubated patient is undergoing dialysis through rt femoral shiley. 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: Dementia Cardio/Vascular: Yes: CAD, CHF, Hyperlipdemia, NE Pulmonary: No: Asthma, Bronchitis, Cancer, COPD, O2 Dependent, Pneumonia, Previously Intubated, Pulmonary Embolus, Pulmonary Fibrosis, Sleep Apnea, Other Renal/: Yes: Renal Failure - Alcohol/Substance Use Hx Alcohol Use: No - Smoking History Smoking history: Unknown if ever smoked Have you smoked in the past 12 months: No - Social History Usual Living Arrangement: With Spouse ADL: Independent Home Medications - Allergies Allergies/Adverse Reactions: Allergies Allergy/AdvReac Type Severity Reaction Status Date / Time No Known Allergies Allergy Verified 04/22/18 14:21 - Home Medications Home Medications: Ambulatory Orders Amlodipine Besylate [Norvasc -] 10 mg PO DAILY 04/22/18 Aspirin Coated [Ecotrin -] 81 mg PO DAILY 04/22/18 Carvedilol [Coreg -] 12.5 mg PO BID 04/22/18 Donepezil HCl [Aricept -] 10 mg PO DAILY 04/22/18 Hydralazine HCl 50 mg PO TID 04/22/18 Tamsulosin HCl [Flomax] 0.4 mg PO DAILY 04/22/18 Atorvastatin Calcium 80 mg PO DAILY 04/23/18 Calcium Acetate [Phoslo -] 667 mg PO TIDCM 04/23/18 Isosorbide Mononitrate [Isosorbide Mononitrate ER] 60 mg PO DAILY 04/23/18 Sodium Bicarbonate - 650 mg PO TID 04/23/18 Review of Systems Unable to obtain ROS, reason: unable to obtain Physical Exam Vital Signs: Vital Signs Temperature 102.8 F H 04/25/18 12:00 Pulse Rate 90 04/25/18 14:00 Respiratory Rate 16 04/25/18 14:00 Blood Pressure 148/60 04/25/18 14:00 O2 Sat by Pulse Oximetry (%) 95 04/25/18 10:30 Constitutional: Yes: Other Eyes: Yes: Conjunctiva Clear Cardiovascular: Yes: Regular Rate and Rhythm Respiratory: Yes: Intubated, Mechanically Ventilated, Other (secretions present) Gastrointestinal: Yes: Normal Bowel Sounds, Soft, Other (og tube in place) Musculoskeletal: Yes: WNL Extremities: Yes: Other (shiley in the right leg) Neurological: Yes: Other Labs: CBC, BMP 04/25/18 05:30 04/25/18 05:30 Imaging - Results Chest X-ray: Report Reviewed, Image Reviewed Assessment/Plan patient currently intubated on dialysis with the catheter from the rt femoral spiking fevers on palpation of the catheter the patient winces in pain though from outside the catheter site looks clean. patient now spiking fevers patient has been given vanco and cefepime source of his fevers could be the lung and femoral catheter sepsis fever ckd hemodialysis plan await for all cx to come back would remove the dialysis catheter continue current mgmt nutrition suctions as necessary rest as per the team if stable might consider ct scan of the chest cc 50 min
--- NOTE | 2018-04-25 15:53 | PN ---
Progress Note (short form) - Note Progress Note: 62 WITH HTN ESRD PT JUST TOOK TOO LONG TO PLAN FOR HD OUT PT INSPITE OF REPEATED COUNSELLING ADMITTED WITH DEPRESSED MS ACCELERATED HTN VOLUME OVERLOAD INTUBATED MONDAY XRAY WHITE OUT SEDATED DIALYZED EMERGENTLY THIS AM SEDATED BUT AROUSABLE STARTED TO SPIKE TEMPS DIALYZED 2.5 HR K2 TARGET 2 KG FEMORAL PULLED CULTURED GIVEN VANCO AND CEFEPIME XRAY IMAGE REVIEWED FIO2 40% FOLLOW CLINICALLY LABS NOTED HOLD OFF ON HD WILL REASSESS IN AM
[2018-04-25] MEDS ORDERED: fentaNYL CITRATE 250 MCG/5 ML VIAL ONE (16:02)
--- NOTE | 2018-04-25 16:32 | PN ---
Physical Exam: SUBJECTIVE: Patient seen and examined. Spiking temps, increased oral secretions with drooling. Still able to obey commands. Failed weaning trial with tachycardia. On propofol 40mcg and fentanyl 25mcg. Had HD yesterday. OBJECTIVE: Vital Signs Period Temp Pulse Resp BP Sys/Wyatt Pulse Ox Last 24 Hr 100.1 F-102.8 F 63-102 14-27 93-222/47-100 94-98 Vital Signs Temp 100.8 F H 04/26/18 03:44 Pulse 81 04/26/18 03:44 Resp 17 04/26/18 03:44 BP 107/48 04/26/18 03:44 Pulse Ox 98 04/26/18 00:05 Intake & Output 04/25/18 04/25/18 04/26/18 11:59 23:59 11:59 Intake Total 1165 1092.6 Output Total 320 100 Balance 845 992.6 Weight 59.4 kg Intake: IV 645 222.6 DIPRIVAN - 1,000,000 mcg 175 170.1 In 100 ml @ 5 MCG/KG/MIN IVPB TITR [facility] Rx#: [id number] Normal Saline - 1,000 ml 420 @ 42 mls/hr IV ASDIR [facility] Rx#:[id number] iv fentanyl 50 52.5 IVPB 300 Tube Feeding 420 360 Tube Irrigant 100 210 Output: Urine 320 100 Mcbride 320 100 Other: Voiding Method Indwelling Catheter Indwelling Catheter Bowel Movement No Weight Measurement Method Built in [facility] Intake & Output 04/23/18 04/24/18 04/25/18 04/26/18 23:59 23:59 23:59 23:59 Intake Total 906.2 2080 2257.6 Output Total 850 375 420 Balance 56.2 1705 1837.6 Weight 67.642 kg 61.235 kg 59.4 kg GENERAL: The patient is intubated and sedated, but easily arousable and obeys commands HEAD: no signs of trauma. ENT: OGT- tube feeds at 45mls/hr, ETT-RR-14, TV-450, PEEP-5, PSV-10, fio2-40% LUNGS: Bilateral rhonchi. HEART: Regular rate and rhythm, S1, S2 without murmur ABDOMEN: Soft, nontender, nondistended, normoactive bowel sounds. Mcbride draining clear urine EXTREMITIES: 2+ pulses, warm, well-perfused, no edema, SCD. R HD catheter in groin NEUROLOGICAL: Sedated and intubated but easily arousable and obeying commands. Able to move all extremities. No facial droop. CBC, BMP 04/25/18 05:30 04/25/18 05:30 Laboratory Results - last 24 hr 04/25/18 04/25/18 05:30 05:30 WBC 9.0 RBC 3.55 L Hgb 12.5 D Hct 30.8 L MCV 86.8 MCH 35.3 H D MCHC 40.7 H RDW 18.2 H Plt Count 154 MPV 8.5 Sodium 138 Potassium 3.9 Chloride 101 Carbon Dioxide 27 D Anion Gap 10 BUN 59 H D Creatinine 8.9 H* D Creat Clearance w eGFR 6.06 Random Glucose 136 H Calcium 6.6 L* Phosphorus 6.2 H Magnesium 1.9 Total Bilirubin 0.9 D AST 18 D ALT 22 D Alkaline Phosphatase 98 Total Protein 5.3 L Albumin 2.0 L Active Medications Generic Name Dose Route Start Last Admin Trade Name Velq PRN Reason Stop Dose Admin Acetaminophen 1,000 mg 04/25/18 11:20 04/25/18 11:30 Ofirmev Injection - IVPB 1,000 mg Q6H PRN Administration FEVER Amlodipine Besylate 10 mg 04/24/18 10:00 04/25/18 09:09 Norvasc - NGT 10 mg DAILY [facility] Administration Carvedilol 12.5 mg 04/24/18 10:00 04/25/18 09:10 Coreg - NGT 12.5 mg BID [facility] Administration Chlorhexidine Gluconate 1 applic 04/22/18 22:00 04/24/18 22:36 Hibiclens For Decolonization - TP 1 applic HS [facility] Administration Heparin Sodium (Porcine) 5,000 unit 04/22/18 22:00 04/25/18 09:11 Heparin - SQ 5,000 unit BID [facility] Administration Hydralazine HCl 50 mg 04/24/18 14:00 04/25/18 15:00 Apresoline - NGT 50 mg TID [facility] Administration Propofol 1,000,000 mcg in 100 mls @ 0 mls/hr 04/22/18 14:30 04/25/18 11:30 Diprivan - IVPB 40 mcg/kg/min TITR [facility] 15.241 mls/hr Administration Protocol 5 MCG/KG/MIN Fentanyl 500 mcg/ Dextrose 100 mls @ 5 mls/hr 04/23/18 14:45 04/24/18 16:41 IVPB Not Given TITR [facility] Protocol 25 MCG/HR Mupirocin 1 applic 04/22/18 22:00 04/25/18 09:11 Bactroban Ointment (For Decolonization) - NS 04/27/18 21:59 1 applic BID [facility] Administration Pantoprazole Sodium 40 mg 04/23/18 11:30 04/25/18 09:10 Protonix Iv IVPUSH 40 mg DAILY [facility] Administration Current Medications Acetaminophen (Ofirmev Injection -) 1,000 mg IVPB Q6H PRN PRN Reason: FEVER Last Admin: 04/25/18 17:23 Dose: 1,000 mg Amlodipine Besylate (Norvasc -) 10 mg NGT DAILY [facility] Last Admin: 04/25/18 09:09 Dose: 10 mg Carvedilol (Coreg -) 12.5 mg NGT BID [facility] Last Admin: 04/25/18 22:03 Dose: 12.5 mg Chlorhexidine Gluconate (Hibiclens For Decolonization -) 1 applic TP HS [facility] Last Admin: 04/25/18 22:02 Dose: 1 applic Heparin Sodium (Porcine) (Heparin -) 5,000 unit SQ BID [facility] Last Admin: 04/25/18 22:02 Dose: 5,000 unit Hydralazine HCl (Apresoline -) 50 mg NGT TID [facility] Last Admin: 04/25/18 22:03 Dose: 50 mg Propofol (Diprivan -) 1,000,000 mcg in 100 mls @ 0 mls/hr IVPB TITR [facility]; Protocol Last Admin: 04/25/18 17:24 Dose: 45.45 mcg/kg/min, 16.2 mls/hr Fentanyl 500 mcg/ Dextrose 100 mls @ 5 mls/hr IVPB TITR [facility]; Protocol Last Admin: 04/25/18 17:25 Dose: 5 mls/hr Mupirocin (Bactroban Ointment (For Decolonization) -) 1 applic NS BID [facility] Stop: 04/27/18 21:59 Last Admin: 04/25/18 22:04 Dose: 1 applic Pantoprazole Sodium (Protonix Iv) 40 mg IVPUSH DAILY [facility] Last Admin: 04/25/18 09:10 Dose: [address]: negative for intracranial bleed ASSESSMENT/PLAN: 62 yo M h/o CKD stage 5, CAD, [place] admitted to ICU for AMS with hypertensive emergency and uremia. Sepsis Fever, tachycardia, tachypnea Unclear source-groin catheter removed Anderson culture-urine, bld, sputum, tylenol iv Received one time vanc and ceftazidime Acute Metabolic Encephalopathy - 2/2 hypertensive /uremic encephalopathy -Failed weaning trial with tachycardia - Started on propofol gtt- titrate down - Cont fentanyl - For weaning trial Uremia -Pt receiving HD 3 session already, per nephro-hold -HD groin catheter removed - Planning for likely permacath in the OR -In setting of sepsis evaluate need for antihypertensives via OGT - Master Control Supervisor on board Hypertensive encephalopathy -Pt presented with SBP of 200 -Review need for in setting of sepsis -home antihypertensives via NGT, coreg , norvasc, hydralazine Acute hypoxic respiratory failure, -intubated and sedated -Failed weaning trial , continue to evaluate for extubation - on propofol gtt, fentanyl -For weaning trial ODILIA on CKD with uremic encephalopathy -Now stage 5 CKD on HD - unknown Cr baseline, h/o dialysis, been f/u 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 - HD as needed Elevated troponin - Likely demand ischemia, or related to poor kidney function with poor excretion - peaked-0.45>>0.39 Dementia - Hold aricept due to NPO BPH - Hold flomax due to NPO CAD s/p NE - on ASA but NPO for meds now FEN - Hold IVF due to hypertension - Replete lytes PRN, or dialyze as needed - NPO DVT ppx - heparin bid Dispo ICU, Visit type - Emergency Visit Emergency Visit: Yes ED Registration Date: 04/22/18 Care time: The patient presented to the Emergency Department on the above date and was hospitalized for further evaluation of their emergent condition. - New Patient This patient is new to me today: No - Critical Care Critical Care patient: Yes Total Critical Care Time (in minutes): 50 Critical Care Statement: The care of this patient involved high complexity decision making to prevent further life threatening deterioration of the patient 's condition and/or to evaluate & treat vital organ system(s) failure or risk of failure.
[2018-04-25] MEDS: FENTANYL INJECTION 500 MCG in DEXTROSE 5%-WATER - 90 ML IVPB SCH (17:25)
[2018-04-25] MEDS ORDERED: PIPERACILLIN/TAZOB 2.25 GM 2.25 GM in DEXTROSE 5%-WATER - 50 ML IVPB SCH (18:00)
--- NOTE | 2018-04-25 18:26 | PN ---
Teaching Attending Note Name of Resident: Geni Sorensen ATTENDING PHYSICIAN STATEMENT I saw and evaluated the patient. I reviewed the resident's note and discussed the case with the resident. I agree with the resident's findings and plan as documented as above. SUBJECTIVE: Patient seen and examined. awake, intubated, denies pain, minimal responses. OBJECTIVE: Vital Signs Period Temp Pulse Resp BP Sys/Wyatt Pulse Ox Last 24 Hr 100.1 F-102.8 F 63-102 14-27 93-222/51-100 94-98 Intake & Output 04/22/18 04/23/18 04/24/18 04/25/18 23:59 23:59 23:59 23:59 Intake Total 0 906.2 2080 2257.6 Output Total 150 850 375 370 Balance -150 56.2 1705 1887.6 Weight 140 lb 149 lb 2 oz 135 lb 130 lb 15.273 oz General: intubated, awake in bed Chest: decreased effort, limited exam Abdomen: soft, NT, ND, positive bowel sounds extremities: no edema Home Medications Medication Instructions Recorded Amlodipine Besylate [Norvasc -] 10 mg PO DAILY 04/22/18 Aspirin Coated [Ecotrin -] 81 mg PO DAILY 04/22/18 Carvedilol [Coreg -] 12.5 mg PO BID 04/22/18 Donepezil HCl [Aricept -] 10 mg PO DAILY 04/22/18 Hydralazine HCl 50 mg PO TID 04/22/18 Tamsulosin HCl [Flomax] 0.4 mg PO DAILY 04/22/18 Atorvastatin Calcium 80 mg PO DAILY 04/23/18 Calcium Acetate [Phoslo -] 667 mg PO TIDCM 04/23/18 Isosorbide Mononitrate [Isosorbide 60 mg PO DAILY 04/23/18 Mononitrate ER] Sodium Bicarbonate - 650 mg PO TID 04/23/18 Active Medications Acetaminophen (Ofirmev Injection -) 1,000 mg IVPB Q6H PRN PRN Reason: FEVER Last Admin: 04/25/18 17:23 Dose: 1,000 mg Amlodipine Besylate (Norvasc -) 10 mg NGT DAILY [facility] Last Admin: 04/25/18 09:09 Dose: 10 mg Carvedilol (Coreg -) 12.5 mg NGT BID [facility] Last Admin: 04/25/18 09:10 Dose: 12.5 mg Chlorhexidine Gluconate (Hibiclens For Decolonization -) 1 applic TP HS [facility] Last Admin: 04/24/18 22:36 Dose: 1 applic Heparin Sodium (Porcine) (Heparin -) 5,000 unit SQ BID [facility] Last Admin: 04/25/18 09:11 Dose: 5,000 unit Hydralazine HCl (Apresoline -) 50 mg NGT TID [facility] Last Admin: 04/25/18 15:00 Dose: 50 mg Propofol (Diprivan -) 1,000,000 mcg in 100 mls @ 0 mls/hr IVPB TITR [facility]; Protocol Last Admin: 04/25/18 17:24 Dose: 45.45 mcg/kg/min, 16.2 mls/hr Fentanyl 500 mcg/ Dextrose 100 mls @ 5 mls/hr IVPB TITR [facility]; Protocol Last Admin: 04/25/18 17:25 Dose: 5 mls/hr Mupirocin (Bactroban Ointment (For Decolonization) -) 1 applic NS BID [facility] Stop: 04/27/18 21:59 Last Admin: 04/25/18 09:11 Dose: 1 applic Pantoprazole Sodium (Protonix Iv) 40 mg IVPUSH DAILY [facility] Last Admin: 04/25/18 09:10 Dose: 40 mg Laboratory Results - last 24 hr 04/25/18 04/25/18 05:30 05:30 WBC 9.0 RBC 3.55 L Hgb 12.5 D Hct 30.8 L MCV 86.8 MCH 35.3 H D MCHC 40.7 H RDW 18.2 H Plt Count 154 MPV 8.5 Sodium 138 Potassium 3.9 Chloride 101 Carbon Dioxide 27 D Anion Gap 10 BUN 59 H D Creatinine 8.9 H* D Creat Clearance w eGFR 6.06 Random Glucose 136 H Calcium 6.6 L* Phosphorus 6.2 H Magnesium 1.9 Total Bilirubin 0.9 D AST 18 D ALT 22 D Alkaline Phosphatase 98 Total Protein 5.3 L Albumin 2.0 L Microbiology 04/22/18 18:10 Urine - Urine Mcbride Urine Culture - Final NO GROWTH OBTAINED ASSESSMENT AND PLAN: 62yo M with PMH CKD (has refused HD in the past), and CAD presenting with progressively worsening shortness of breath and altered mental status. in the ER was found to have SBP 240. code larkin was activated in the ER -Acute toxic metabolic encephalopathy, likely uremic + hypertensive -Acute hypoxic respiratory failure, suspect fluid overload from ESRD +/- ARDS -Hypertensive emergency -Acute on CKD stage V -Elevated troponin, suspect demand ischemia from above -SIRS, ?HD cath related vs pulmonary. -Normocytic anemia, suspect from CKD/dilutional -Dementia Plan: ID input noted, s/p Cefepime/vanco x 1 with HD, panculture. Plan for removal of HD. Monitor and possible CT chest if persistent fevers. s/p shiley 04/22 with emergent HD. Failed weaning, weaning trials. Off labetalol drip. BP improved on home oral anti-hypertensives. Discussed with Dr. Oleary, follow up for community relations specialist access, ?Permacth+/- PD. 2D echo results reviewed. Tube feeds, resume oral meds as tolerated. Trend h/h, hold aricept. DVTPPx heparin Dispo pending clinical improvement. The care of this patient involved high complexity decision making to prevent further life threatening deterioration of the patient's condition and/or to evaluate & treat vital organ system(s) failure or risk of failure. Critical care time spent in reviewing chart, evaluating patient and formulating plan - 40 minutes.
[2018-04-25] MEDS: CHLORHEXIDINE GLUCONATE 4% CLEANSER FOR DECOLONIZATION TP SCH (22:02)
[2018-04-26 00:07] LABS: HBSAG SCREEN Negative (Negative); HEP A AB, IGM Negative (Negative); HEP B CORE AB, TOT Negative (Negative)
[2018-04-26 06:03] LABS: HEMATOCRIT 31.6 % (35.4-49); HEMOGLOBIN 10.2 GM/dL (11.7-16.9); MCH 27.8 pg (25.7-33.7); MCHC 32.3 g/dl (32.0-35.9); MEAN CELL VOLUME 86.2 fl (80-96); MEAN PLT VOLUME 9.2 fl (7.5-11.1); PLATELET COUNT 136 K/MM3 (134-434); RBC 3.66 M/mm3 (4.00-5.60); RDW 18.2 % (11.9-15.9)
[2018-04-26] MEDS: PROPOFOL 1,000,000 MCG/100 ML VIAL IVPB SCH (06:48)
[2018-04-26] MEDS: hydrALAZINE HCL 50 MG TABLET (FP) NGT SCH ×3 (06:48→22:31)
[2018-04-26] MEDS: FENTANYL INJECTION 500 MCG in DEXTROSE 5%-WATER - 90 ML IVPB SCH (06:51)
[2018-04-26 06:54] LABS: CHLORIDE 99 mmol/L (98-107); POTASSIUM 4.3 mmol/L (3.5-5.1); SODIUM 136 mmol/L (136-145)
[2018-04-26 06:59] LABS: ALK PHOS 117 U/L (45-117); ANION GAP 11 (8-16); BILIRUBIN,TOTAL 0.5 mg/dL (0.2-1.0); BLOOD UREA NITROGEN 59 mg/dL (7-18); CALCIUM 7.7 mg/dL (8.5-10.1); CO2 26 mmol/L (21-32); GLUCOSE,RANDOM 105 mg/dL (74-106); MAGNESIUM 1.9 mg/dL (1.8-2.4); PHOSPHOROUS 7.2 mg/dL (2.5-4.9); SGOT/AST 16 U/L (15-37); SGPT/ALT 11 U/L (12-78); TOT PROT 5.6 g/dl (6.4-8.2)
--- NOTE | 2018-04-26 07:09 | PN ---
Physical Exam: SUBJECTIVE: Patient seen and examined. Got dialyzed yesterday. still febrile. Fentanyl dcd-pt running hypotensive. On Propofol@10. Received vanc- during dialysis /ceftazidime yesterday. HD catheter removed yesterday. Pending confirmation of willingness to continue dialysis OBJECTIVE: Vital Signs Period Temp Pulse Resp BP Sys/Wyatt Pulse Ox Last 24 Hr 100 F-102.8 F 75-102 14-27 93-222/48-100 94-98 Vital Signs Temp 100.8 F H 04/26/18 05:45 Pulse 81 04/26/18 05:45 Resp 19 04/26/18 06:00 BP 107/48 04/26/18 05:45 Pulse Ox 98 04/26/18 00:05 Intake & Output 04/25/18 04/25/18 04/26/18 11:59 23:59 11:59 Intake Total 1165 1092.6 650 Output Total 320 100 50 Balance 845 992.6 600 Weight 59.4 kg 56.9 kg Intake: IV 645 222.6 150 DIPRIVAN - 1,000,000 mcg 175 170.1 100 In 100 ml @ 5 MCG/KG/MIN IVPB TITR [facility] Rx#: [id number] Normal Saline - 1,000 ml 420 @ 42 mls/hr IV ASDIR [facility] Rx#:[id number] iv fentanyl 50 52.5 50 IVPB 300 Tube Feeding 420 360 400 Tube Irrigant 100 210 100 Output: Urine 320 100 50 Mcbride 320 100 50 Other: Voiding Method Indwelling Catheter Indwelling Catheter Bowel Movement No No Weight Measurement Method Built in [facility] Built in [facility] GENERAL: The patient is intubated, awake, obeys commands, warm ENT: OGT, ETT- 14, 450, 5/5 , 40% LUNGS: Reduced Breath sounds on R lower lung, rhonchi HEART: Regular rate and rhythm, S1, S2 without murmur, rub or gallop. ABDOMEN: Soft, nontender, nondistended, normoactive bowel sounds EXTREMITIES: 2+ pulses, warm, well-perfused, no edema. NEUROLOGICAL: Awake , alert, obeys commands, able to move all extremities, Laboratory Results - last 24 hr 04/22/18 04/25/18 04/26/18 13:30 05:30 05:30 WBC 13.0 H D RBC 3.66 L Hgb 10.2 L D Hct 31.6 L MCV 86.2 MCH 27.8 D MCHC 32.3 RDW 18.2 H Plt Count 136 MPV 9.2 AST 18 D ALT 22 D Hep A IgM Ab Confirm Negative Hepatitis A Ab Total Positive H Hep Bs Antigen Negative Hep Bs Antibody Reactive Hep B Core Total Ab Negative Active Medications Generic Name Dose Route Start Last Admin Trade Name Freq PRN Reason Stop Dose Admin Acetaminophen 1,000 mg 04/25/18 11:20 04/25/18 17:23 Ofirmev Injection - IVPB 1,000 mg Q6H PRN Administration FEVER Amlodipine Besylate 10 mg 04/24/18 10:00 04/25/18 09:09 Norvasc - NGT 10 mg DAILY [facility] Administration Carvedilol 12.5 mg 04/24/18 10:00 04/25/18 22:03 Coreg - NGT 12.5 mg BID [facility] Administration Chlorhexidine Gluconate 1 applic 04/22/18 22:00 04/25/18 22:02 Hibiclens For Decolonization - TP 1 applic HS [facility] Administration Heparin Sodium (Porcine) 5,000 unit 04/22/18 22:00 04/25/18 22:02 Heparin - SQ 5,000 unit BID [facility] Administration Hydralazine HCl 50 mg 04/24/18 14:00 04/26/18 06:48 Apresoline - NGT 50 mg TID [facility] Administration Propofol 1,000,000 mcg in 100 mls @ 0 mls/hr 04/22/18 14:30 04/26/18 06:48 Diprivan - IVPB 10 mcg/kg/min TITR [facility] 3.81 mls/hr Administration Protocol 5 MCG/KG/MIN Fentanyl 500 mcg/ Dextrose 100 mls @ 5 mls/hr 04/23/18 14:45 04/25/18 17:25 IVPB 5 mls/hr TITR [facility] Administration Protocol 25 MCG/HR Mupirocin 1 applic 04/22/18 22:00 04/25/18 22:04 Bactroban Ointment (For Decolonization) - NS 04/27/18 21:59 1 applic BID [facility] Administration Pantoprazole Sodium 40 mg 04/23/18 11:30 04/25/18 09:10 Protonix Iv IVPUSH 40 mg DAILY [facility] Administration Current Medications Acetaminophen (Ofirmev Injection -) 1,000 mg IVPB Q6H PRN PRN Reason: FEVER Last Admin: 04/25/18 17:23 Dose: 1,000 mg Amlodipine Besylate (Norvasc -) 10 mg NGT DAILY [facility] Last Admin: 04/25/18 09:09 Dose: 10 mg Carvedilol (Coreg -) 12.5 mg NGT BID [facility] Last Admin: 04/25/18 22:03 Dose: 12.5 mg Chlorhexidine Gluconate (Hibiclens For Decolonization -) 1 applic TP HS [facility] Last Admin: 04/25/18 22:02 Dose: 1 applic Heparin Sodium (Porcine) (Heparin -) 5,000 unit SQ BID [facility] Last Admin: 04/25/18 22:02 Dose: 5,000 unit Hydralazine HCl (Apresoline -) 50 mg NGT TID [facility] Last Admin: 04/26/18 06:48 Dose: 50 mg Propofol (Diprivan -) 1,000,000 mcg in 100 mls @ 0 mls/hr IVPB TITR [facility]; Protocol Last Admin: 04/26/18 06:48 Dose: 10 mcg/kg/min, 3.81 mls/hr Fentanyl 500 mcg/ Dextrose 100 mls @ 5 mls/hr IVPB TITR [facility]; Protocol Last Admin: 04/25/18 17:25 Dose: 5 mls/hr Mupirocin (Bactroban Ointment (For Decolonization) -) 1 applic NS BID [facility] Stop: 04/27/18 21:59 Last Admin: 04/25/18 22:04 Dose: 1 applic Pantoprazole Sodium (Protonix Iv) 40 mg IVPUSH DAILY [facility] Last Admin: 04/25/18 09:10 Dose: 40 mg Ambulatory Orders Amlodipine Besylate [Norvasc -] 10 mg PO DAILY 04/22/18 Aspirin Coated [Ecotrin -] 81 mg PO DAILY 04/22/18 Carvedilol [Coreg -] 12.5 mg PO BID 04/22/18 Donepezil HCl [Aricept -] 10 mg PO DAILY 04/22/18 Hydralazine HCl 50 mg PO TID 04/22/18 Tamsulosin HCl [Flomax] 0.4 mg PO DAILY 04/22/18 Atorvastatin Calcium 80 mg PO DAILY 04/23/18 Calcium Acetate [Phoslo -] 667 mg PO TIDCM 04/23/18 Isosorbide Mononitrate [Isosorbide Mononitrate ER] 60 mg PO DAILY 04/23/18 Sodium Bicarbonate - 650 mg PO TID 04/23/18 Microbiology 04/25/18 11:10 Sputum - Endotrachea Suction/Ventilator Gram Stain - Final 04/25/18 11:10 Sputum - Endotrachea Suction/Ventilator Sputum Culture - Preliminary Lactose Fermenting Neg Bacilli Presumptive Mrsa (Pbp2a Pos) 04/25/18 10:10 Urine - Urine Mcbride Urine Culture - Final NO GROWTH OBTAINED 04/25/18 10:24 Blood - Peripheral Venous Blood Culture - Preliminary Pending Organism 04/25/18 10:40 Blood - Peripheral Venous Blood Culture - Preliminary Pending Organism Head CT: negative for intracranial bleed -ECHO: moderate to severe L ventricular systolic dysfunction ASSESSMENT/PLAN: 62 yo M h/o CKD stage 5, CAD, [place] admitted to ICU for AMS with hypertensive emergency and uremia. Sepsis Fever, tachycardia, tachypnea Unclear source-groin catheter removed Anderson culture-urine, bld, sputum, tylenol iv Received one time vanc and ceftazidime Add UA Afib EKG 04/26/18- Afib Heparin gtt started Acute Metabolic Encephalopathy - 2/2 hypertensive /uremic encephalopathy - Resolved -Pt extubated, tolerating well, on ventimask at 40% Uremia -Pt receiving HD 3 session already, per nephro-hold -HD groin catheter removed - Confirm patient consent-Pt is agreeable -D/W Dr Mejia- if pt is not bacteremic, could get a trialysis catheter for Monday - General Internal Medicine Doctor on board Hypertensive encephalopathy -Pt presented with SBP of 200 -home antihypertensives coreg, norvasc, hydralazine Acute hypoxic respiratory failure, Resolved Pt extubated CXR improved- could have been flash Pulmonary edema ODILIA on CKD with uremic encephalopathy -Now stage 5 CKD on HD - unknown Cr baseline, h/o dialysis, been f/u as outpatient with clinical education consultant at [facility] - HD as needed Elevated troponin - Likely demand ischemia, or related to poor kidney function with poor excretion - peaked-0.45>>0.39 Dementia - Hold aricept due to NPO BPH - Hold flomax due to NPO CAD s/p [place] - on ASA but NPO for meds now FEN - Hold IVF due to hypertension - Replete lytes PRN, or dialyze as needed - NPO DVT ppx - heparin bid Dispo ICU, Visit type - Emergency Visit Emergency Visit: Yes ED Registration Date: 04/22/18 Care time: The patient presented to the Emergency Department on the above date and was hospitalized for further evaluation of their emergent condition. - New Patient This patient is new to me today: No - Critical Care Critical Care patient: Yes Total Critical Care Time (in minutes): 40 Critical Care Statement: The care of this patient involved high complexity decision making to prevent further life threatening deterioration of the patient 's condition and/or to evaluate & treat vital organ system(s) failure or risk of failure. - Discharge Referral Referred to [facility] Med P.C.: No
[2018-04-26 08:04] LABS: CREATININE 8.6 mg/dL (0.7-1.3)
--- NOTE | 2018-04-26 08:21 | PN ---
Progress Note, Physician Chief Complaint: unresponsiveness History of Present Illness: Gradually less alert over a couple of weeks in this man chronic kidney disease who has been advised to accept dialysis but up until now has declined. He became acutely unresponsive over the weekend. There were no signs of seizures or focal deficits reported. He has been sedated on propofol, but intermittently alert and resonsive and following commands. no signs of seizure activity. - Current Medication List Current Medications: Active Medications Acetaminophen (Ofirmev Injection -) 1,000 mg IVPB Q6H PRN PRN Reason: FEVER Last Admin: 04/25/18 17:23 Dose: 1,000 mg Amlodipine Besylate (Norvasc -) 10 mg NGT DAILY [facility] Last Admin: 04/25/18 09:09 Dose: 10 mg Carvedilol (Coreg -) 12.5 mg NGT BID [facility] Last Admin: 04/25/18 22:03 Dose: 12.5 mg Chlorhexidine Gluconate (Hibiclens For Decolonization -) 1 applic TP HS [facility] Last Admin: 04/25/18 22:02 Dose: 1 applic Heparin Sodium (Porcine) (Heparin -) 5,000 unit SQ BID [facility] Last Admin: 04/25/18 22:02 Dose: 5,000 unit Hydralazine HCl (Apresoline -) 50 mg NGT TID [facility] Last Admin: 04/26/18 06:48 Dose: 50 mg Propofol (Diprivan -) 1,000,000 mcg in 100 mls @ 0 mls/hr IVPB TITR [facility]; Protocol Last Admin: 04/26/18 06:48 Dose: 10 mcg/kg/min, 3.81 mls/hr Fentanyl 500 mcg/ Dextrose 100 mls @ 5 mls/hr IVPB TITR [facility]; Protocol Last Admin: 04/25/18 17:25 Dose: 5 mls/hr Mupirocin (Bactroban Ointment (For Decolonization) -) 1 applic NS BID [facility] Stop: 04/27/18 21:59 Last Admin: 04/25/18 22:04 Dose: 1 applic Pantoprazole Sodium (Protonix Iv) 40 mg IVPUSH DAILY [facility] Last Admin: 04/25/18 09:10 Dose: 40 mg - Objective Vital Signs: Vital Signs Temperature 100.8 F H 04/26/18 05:45 Pulse Rate 95 H 04/26/18 08:04 Respiratory Rate 26 H 04/26/18 08:04 Blood Pressure 107/48 04/26/18 05:45 O2 Sat by Pulse Oximetry (%) 99 04/26/18 08:04 Neurological: Yes: Alert (blinks eyes and shows me two fingers on command though intubated.) Labs: CBC, BMP 04/26/18 05:30 04/26/18 05:30 INR, PTT INR 1.17 (0.82-1.09) H 04/23/18 05:30 Problem List - Problems (1) ARDS (adult respiratory distress syndrome) Code(s): J80 - ACUTE RESPIRATORY DISTRESS SYNDROME (2) Renal failure Code(s): N19 - UNSPECIFIED KIDNEY FAILURE Qualifiers: Renal failure chronicity: acute on chronic (3) Respiratory failure Code(s): J96.90 - RESPIRATORY FAILURE, UNSP, UNSP W HYPOXIA OR HYPERCAPNIA Qualifiers: Chronicity: acute Respiratory failure complication: unspecified whether with hypoxia or hypercapnia Qualified Code(s): J96.00 - Acute respiratory failure, unspecified whether with hypoxia or hypercapnia (4) Toxic metabolic encephalopathy Code(s): G92 - TOXIC ENCEPHALOPATHY Assessment/Plan Likely uremic encephalopathy complicated by ARDS. THere is no neurologic contranidication to dialysis. I don't think that he is likely having seizures at this point. He is awake, alert, and well related. Cancel EEG. We'll sign off. Please call if further questions arise.
[2018-04-26] MEDS: PANTOPRAZOLE SODIUM 40 MG VIAL IVPUSH SCH (09:07)
[2018-04-26] MEDS: HEPARIN NA (PORCINE) 5,000 UNITS/ML 1ML VIAL SQ SCH (09:07)
[2018-04-26] MEDS: CARVEDILOL 12.5 MG TABLET (FP) NGT SCH ×2 (09:08→22:31)
[2018-04-26] MEDS: MUPIROCIN 2% TOPICAL OINTMENT FOR DECOLONIZATION NS SCH ×2 (09:08→22:30)
[2018-04-26] MEDS: amLODIPine BESYLATE 10 MG TABLET (FP) NGT SCH (09:08)
--- NOTE | 2018-04-26 12:41 | PN ---
Teaching Attending Note Name of Resident: Song Rodriguez ATTENDING PHYSICIAN STATEMENT I saw and evaluated the patient. I reviewed the resident's note and discussed the case with the resident. I agree with the resident's findings and plan as documented. SUBJECTIVE: Patient seen and examined in the ICU. Remains intubated, awake and able to follow commands. Hemodynamics stable. OBJECTIVE: Intake & Output 04/23/18 04/24/18 04/25/18 04/26/18 23:59 23:59 23:59 23:59 Intake Total 906.2 2080 2257.6 650 Output Total 850 375 420 50 Balance 56.2 1705 1837.6 600 Weight 149 lb 2 oz 135 lb 130 lb 15.273 oz 125 lb 7.088 oz Last Vital Signs Temp Pulse Resp BP Pulse Ox 100.8 F H 88 26 H 134/63 99 04/26/18 05:45 04/26/18 09:48 04/26/18 08:04 04/26/18 08:00 04/26/18 09:48 Active Medications Acetaminophen (Ofirmev Injection -) 1,000 mg IVPB Q6H PRN PRN Reason: FEVER Last Admin: 04/25/18 17:23 Dose: 1,000 mg Amlodipine Besylate (Norvasc -) 10 mg NGT DAILY [facility] Last Admin: 04/26/18 09:08 Dose: 10 mg Carvedilol (Coreg -) 12.5 mg NGT BID [facility] Last Admin: 04/26/18 09:08 Dose: 12.5 mg Chlorhexidine Gluconate (Hibiclens For Decolonization -) 1 applic TP HS [facility] Last Admin: 04/25/18 22:02 Dose: 1 applic Heparin Sodium (Porcine) (Heparin -) 5,000 unit SQ BID [facility] Last Admin: 04/26/18 09:07 Dose: 5,000 unit Hydralazine HCl (Apresoline -) 50 mg NGT TID [facility] Last Admin: 04/26/18 06:48 Dose: 50 mg Propofol (Diprivan -) 1,000,000 mcg in 100 mls @ 0 mls/hr IVPB TITR [facility]; Protocol Last Titration: 04/26/18 09:00 Dose: 0 mcg/kg/min, 0 mls/hr Fentanyl 500 mcg/ Dextrose 100 mls @ 5 mls/hr IVPB TITR [facility]; Protocol Last Admin: 04/25/18 17:25 Dose: 5 mls/hr Mupirocin (Bactroban Ointment (For Decolonization) -) 1 applic NS BID [facility] Stop: 04/27/18 21:59 Last Admin: 04/26/18 09:08 Dose: 1 applic Pantoprazole Sodium (Protonix Iv) 40 mg IVPUSH DAILY [facility] Last Admin: 04/26/18 09:07 Dose: 40 mg Gen: intubated, awake Heart: RRR Lung: decreased breath sounds at the bases Abd: soft, nontender Ext: no edema Laboratory Results - last 24 hr 04/22/18 04/26/18 04/26/18 13:30 05:30 05:30 WBC 13.0 H D RBC 3.66 L Hgb 10.2 L D Hct 31.6 L MCV 86.2 MCH 27.8 D MCHC 32.3 RDW 18.2 H Plt Count 136 MPV 9.2 Sodium 136 Potassium 4.3 Chloride 99 Carbon Dioxide 26 Anion Gap 11 BUN 59 H Creatinine 8.6 H* Creat Clearance w eGFR 6.30 Random Glucose 105 D Calcium 7.7 L Phosphorus 7.2 H Magnesium 1.9 Total Bilirubin 0.5 D AST 16 ALT 11 L D Alkaline Phosphatase 117 Total Protein 5.6 L Albumin 2.0 L Hep A IgM Ab Confirm Negative Hepatitis A Ab Total Positive H Hep Bs Antigen Negative Hep Bs Antibody Reactive Hep B Core Total Ab Negative ASSESSMENT AND PLAN: Altered Mental Status Acute Respiratory Failure Hypertensive Urgency r/o Hypertensive vs Uremic Encephalopathy Acute on Chronic Renal Failure requiring HD +Troponins likely demand ischemia Dementia - Wean to extubate - ABX per ID for G, (+) cocci - HD per renal - monitor urine output, creatinine - taper FiO2 to keep SpO2 >90% - DVT/GI prophylaxis - continue ICU monitoring Dr Mejia Critical care time spent in reviewing chart, evaluating patient and formulating plan 35 min
--- NOTE | 2018-04-26 12:52 | PN ---
Physical Exam: SUBJECTIVE: Patient seen and examined. Intubated, sedated. Offers no complaints. Febrile overnight. Tmax 102.8. Bcx, Ucx, sputum cultures ordered. Femoral Line removed. Abx started. Bcx positive for Gram+ cocci tolerated dialysis yesterday. OBJECTIVE: Vital Signs Period Temp Pulse Resp BP Sys/Wyatt Pulse Ox Last 24 Hr 100 F-101.7 F 75-95 14-27 97-148/48-63 96-99 GENERAL: intubated, sedated, arousable to verbal stimuli. EYES: PERRL, sclera anicteric, conjunctiva clear. ENT: oropharynx clear without exudates LUNGS: scattered rhonchi HEART: Regular rate and rhythm, S1, S2 without murmur ABDOMEN: Soft, no grimacing on palpation EXTREMITIES: 2+ pulses, warm, no edema Laboratory Results - last 24 hr 04/22/18 04/26/18 04/26/18 13:30 05:30 05:30 WBC 13.0 H D RBC 3.66 L Hgb 10.2 L D Hct 31.6 L MCV 86.2 MCH 27.8 D MCHC 32.3 RDW 18.2 H Plt Count 136 MPV 9.2 Sodium 136 Potassium 4.3 Chloride 99 Carbon Dioxide 26 Anion Gap 11 BUN 59 H Creatinine 8.6 H* Creat Clearance w eGFR 6.30 Random Glucose 105 D Calcium 7.7 L Phosphorus 7.2 H Magnesium 1.9 Total Bilirubin 0.5 D AST 16 ALT 11 L D Alkaline Phosphatase 117 Total Protein 5.6 L Albumin 2.0 L Hep A IgM Ab Confirm Negative Hepatitis A Ab Total Positive H Hep Bs Antigen Negative Hep Bs Antibody Reactive Hep B Core Total Ab Negative Active Medications Generic Name Dose Route Start Last Admin Trade Name Freq PRN Reason Stop Dose Admin Acetaminophen 1,000 mg 04/25/18 11:20 04/25/18 17:23 Ofirmev Injection - IVPB 1,000 mg Q6H PRN Administration FEVER Amlodipine Besylate 10 mg 04/24/18 10:00 04/26/18 09:08 Norvasc - NGT 10 mg DAILY [facility] Administration Carvedilol 12.5 mg 04/24/18 10:00 04/26/18 09:08 Coreg - NGT 12.5 mg BID [facility] Administration Chlorhexidine Gluconate 1 applic 04/22/18 22:00 04/25/18 22:02 Hibiclens For Decolonization - TP 1 applic HS [facility] Administration Heparin Sodium (Porcine) 5,000 unit 04/22/18 22:00 04/26/18 09:07 Heparin - SQ 5,000 unit BID [facility] Administration Hydralazine HCl 50 mg 04/24/18 14:00 04/26/18 06:48 Apresoline - NGT 50 mg TID [facility] Administration Propofol 1,000,000 mcg in 100 mls @ 0 mls/hr 04/22/18 14:30 04/26/18 09:00 Diprivan - IVPB 0 mcg/kg/min TITR [facility] 0 mls/hr Titration Protocol 5 MCG/KG/MIN Fentanyl 500 mcg/ Dextrose 100 mls @ 5 mls/hr 04/23/18 14:45 04/25/18 17:25 IVPB 5 mls/hr TITR [facility] Administration Protocol 25 MCG/HR Mupirocin 1 applic 04/22/18 22:00 04/26/18 09:08 Bactroban Ointment (For Decolonization) - NS 04/27/18 21:59 1 applic BID [facility] Administration Pantoprazole Sodium 40 mg 04/23/18 11:30 04/26/18 09:07 Protonix Iv IVPUSH 40 mg DAILY [facility] Administration ASSESSMENT/PLAN: NEURO #Acute toxic metabolic encephalopathy -likely secondary to a combination of hypertensive emergency and uremia -HD per renal with ultrafiltration -BP control -Hold sedation. PULM -Acute respiratory failure -extubate today. -keep SpO2 >90% CV -Hypertensive urgency -resolved -Cont. coreg 12.5mg BID, Amlodipine 10mg, Hydralazine 50 TID -BP monitoring -ECHO: moderate to severe L ventricular systolic dysfunction ID -tmax 102.8 -Bcx positive for Gram + Cocci, await final cultures -IV abx: Vancomycin -Acute on Chronic CKD -HD as needed -monitor urine output, creatinine -renal on board -avoid nephrotoxins FEN -No iv fluids -monitor lytes -Tube feeds via OG PPX -hep sq -protonix iv cont icu monitoring Visit type - Emergency Visit Emergency Visit: Yes ED Registration Date: 04/22/18 Care time: The patient presented to the Emergency Department on the above date and was hospitalized for further evaluation of their emergent condition. - New Patient This patient is new to me today: No - Critical Care Critical Care patient: Yes Total Critical Care Time (in minutes): 40 Critical Care Statement: The care of this patient involved high complexity decision making to prevent further life threatening deterioration of the patient 's condition and/or to evaluate & treat vital organ system(s) failure or risk of failure.
[2018-04-26] MEDS ORDERED: VANCOMYCIN 1,000 MG in DEXTROSE 5%-WATER - 250 ML IVPB ONE (13:45)
[2018-04-26] MEDS ORDERED: CEFTAZIDIME PENTAHYDRATE 0.5 GM in DEXTROSE 5%-WATER - 50 ML IVPB ONE (14:30)
[2018-04-26] MEDS ORDERED: HEPARIN NA (PORCINE) 5,000 UNITS/ML 1ML VIAL IVPUSH PRN ×2 (15:45)
--- NOTE | 2018-04-26 15:51 | EKG ---
Test Reason : Blood Pressure : / mmHG Vent. Rate : 097 BPM Atrial Rate : 326 BPM P-R Int : 000 ms QRS Dur : 100 ms QT Int : 362 ms P-R-T Axes : 000 -14 123 degrees QTc Int : 459 ms ATRIAL FIBRILLATION WITH PREMATURE VENTRICULAR OR ABERRANTLY CONDUCTED COMPLEXES VOLTAGE CRITERIA FOR LEFT VENTRICULAR HYPERTROPHY INFERIOR INFARCT (CITED ON OR BEFORE 22-APR-2018) ABNORMAL ECG WHEN COMPARED WITH ECG OF 22-APR-2018 14:08, ATRIAL FIBRILLATION HAS REPLACED SINUS RHYTHM T WAVE INVERSION NO LONGER EVIDENT IN INFERIOR LEADS Confirmed by JACOB LUTZ, ANNABELLE ([id number]) on 04/26/2018 3:51:01 PM Referred By: LOIDA JANG Confirmed By:ANNABELLE JAMES MD
--- NOTE | 2018-04-26 16:04 | PN ---
Teaching Attending Note Name of Resident: Geni Sorensen ATTENDING PHYSICIAN STATEMENT I saw and evaluated the patient. I reviewed the resident's note and discussed the case with the resident. I agree with the resident's findings and plan as documented with exceptions below. SUBJECTIVE: patient seen and examined, extubated, responding with nods. No pain or complaints. OBJECTIVE: Vital Signs Period Temp Pulse Resp BP Sys/Wyatt Pulse Ox Last 24 Hr 100 F-100.9 F 75-95 14-27 97-135/48-63 96-99 Intake & Output 04/23/18 04/24/18 04/25/18 04/26/18 23:59 23:59 23:59 23:59 Intake Total 906.2 2080 2257.6 771 Output Total 850 375 420 250 Balance 56.2 1705 1837.6 521 Weight 149 lb 2 oz 135 lb 130 lb 15.273 oz 125 lb 7.088 oz general: sitting in bed on VM, no acute disterss Chest: bibasilar rales Abdomen:Soft, NT, ND Extermities: no edema Home Medication List Medication Instructions Recorded Confirmed Type Amlodipine Besylate [Norvasc -] 10 mg PO DAILY 04/22/18 04/22/18 History Aspirin Coated [Ecotrin -] 81 mg PO DAILY 04/22/18 04/22/18 History Carvedilol [Coreg -] 12.5 mg PO BID 04/22/18 04/22/18 History Donepezil HCl [Aricept -] 10 mg PO DAILY 04/22/18 04/22/18 History Hydralazine HCl 50 mg PO TID 04/22/18 04/22/18 History Tamsulosin HCl [Flomax] 0.4 mg PO DAILY 04/22/18 04/22/18 History Atorvastatin Calcium 80 mg PO DAILY 04/23/18 04/23/18 History Calcium Acetate [Phoslo -] 667 mg PO TIDCM 04/23/18 04/23/18 History Isosorbide Mononitrate [Isosorbide 60 mg PO DAILY 04/23/18 04/23/18 History Mononitrate ER] Sodium Bicarbonate - 650 mg PO TID 04/23/18 04/23/18 History Active Medications Generic Name Dose Route Start Last Admin Trade Name Freq PRN Reason Stop Dose Admin Acetaminophen 1,000 mg 04/25/18 11:20 04/25/18 17:23 Ofirmev Injection - IVPB 1,000 mg Q6H PRN Administration FEVER Amlodipine Besylate 10 mg 04/24/18 10:00 04/26/18 09:08 Norvasc - NGT 10 mg DAILY [facility] Administration Carvedilol 12.5 mg 04/24/18 10:00 04/26/18 09:08 Coreg - NGT 12.5 mg BID [facility] Administration Chlorhexidine Gluconate 1 applic 04/22/18 22:00 04/25/18 22:02 Hibiclens For Decolonization - TP 1 applic HS [facility] Administration Heparin Sodium (Porcine) 5,000 unit 04/22/18 22:00 04/26/18 09:07 Heparin - SQ 5,000 unit BID [facility] Administration Heparin Sodium (Porcine) 1,000 unit 04/26/18 15:45 Heparin - IVPUSH PRN PRN Heparin Heparin Sodium (Porcine) 5,000 unit 04/26/18 15:45 Heparin - IVPUSH PRN PRN Heparin Hydralazine HCl 50 mg 04/24/18 14:00 04/26/18 14:10 Apresoline - NGT 50 mg TID [facility] Administration Heparin Sodium (Porcine) 25, 500 mls @ 16 mls/hr 04/26/18 15:45 000 unit/ Sodium Chloride IV TITR [facility] Protocol 800 UNIT/HR Mupirocin 1 applic 04/22/18 22:00 04/26/18 09:08 Bactroban Ointment (For Decolonization) - NS 04/27/18 21:59 1 applic BID [facility] Administration Pantoprazole Sodium 40 mg 04/23/18 11:30 04/26/18 09:07 Protonix Iv IVPUSH 40 mg DAILY [facility] Administration Laboratory Results - last 24 hr 04/22/18 04/26/18 04/26/18 13:30 05:30 05:30 WBC 13.0 H D RBC 3.66 L Hgb 10.2 L D Hct 31.6 L MCV 86.2 MCH 27.8 D MCHC 32.3 RDW 18.2 H Plt Count 136 MPV 9.2 Sodium 136 Potassium 4.3 Chloride 99 Carbon Dioxide 26 Anion Gap 11 BUN 59 H Creatinine 8.6 H* Creat Clearance w eGFR 6.30 Random Glucose 105 D Calcium 7.7 L Phosphorus 7.2 H Magnesium 1.9 Total Bilirubin 0.5 D AST 16 ALT 11 L D Alkaline Phosphatase 117 Total Protein 5.6 L Albumin 2.0 L Random Vancomycin Hep A IgM Ab Confirm Negative Hepatitis A Ab Total Positive H Hep Bs Antigen Negative Hep Bs Antibody Reactive Hep B Core Total Ab Negative 04/26/18 05:30 WBC RBC Hgb Hct MCV MCH MCHC RDW Plt Count MPV Sodium Potassium Chloride Carbon Dioxide Anion Gap BUN Creatinine Creat Clearance w eGFR Random Glucose Calcium Phosphorus Magnesium Total Bilirubin AST ALT Alkaline Phosphatase Total Protein Albumin Random Vancomycin 3.32 Hep A IgM Ab Confirm Hepatitis A Ab Total Hep Bs Antigen Hep Bs Antibody Hep B Core Total Ab Microbiology 04/25/18 11:10 Sputum - Endotrachea Suction/Ventilator Gram Stain - Final 04/25/18 11:10 Sputum - Endotrachea Suction/Ventilator Sputum Culture - Preliminary Lactose Fermenting Neg Bacilli Presumptive Mrsa (Pbp2a Pos) 04/25/18 10:10 Urine - Urine Mcbride Urine Culture - Final NO GROWTH OBTAINED 04/25/18 10:24 Blood - Peripheral Venous Blood Culture - Preliminary Pending Organism 04/25/18 10:40 Blood - Peripheral Venous Blood Culture - Preliminary Pending Organism 04/22/18 18:10 Urine - Urine Mcbride Urine Culture - Final NO GROWTH OBTAINED ASSESSMENT AND PLAN: 62yo M with PMH CKD (has refused HD in the past), and CAD presenting with progressively worsening shortness of breath and altered mental status. in the ER was found to have SBP 240. code larkin was activated in the ER -Acute toxic metabolic encephalopathy, likely uremic + hypertensive -Acute hypoxic respiratory failure, suspect fluid overload from ESRD +/- ARDS -Hypertensive emergency -Acute on CKD stage V -Elevated troponin, suspect demand ischemia from above -Sepsis with GPC bacteremia, ?femoral line related. -Normocytic anemia, suspect from CKD/dilutional -Dementia Plan: ID input noted, s/p Cefepime/vanco x 1 with HD, blood cx with GPC, ?line related , repeat cultures after line removal. Follow up with ID. Extubated, doing well, bedside speech/swallow eval, diet accordingly. s/p sangeetaley 04/22 with emergent HD, removed 04/25. Failed weaning, weaning trials. Off labetalol drip. BP improved on home oral anti-hypertensives. Discussed with Dr. Saboor, follow up for skilled nursing access, ?Permacth+/- PD. Plan on hold given bacteremia. 2D echo results reviewed. Tube feeds, resume oral meds as tolerated. Trend h/h, hold aricept. DVTPPx heparin Dispo pending clinical improvement. The care of this patient involved high complexity decision making to prevent further life threatening deterioration of the patient's condition and/or to evaluate & treat vital organ system(s) failure or risk of failure. Critical care time spent in reviewing chart, evaluating patient and formulating plan - 40 minutes.
[2018-04-26 17:24] LABS: URINE APPEARANCE CLEAR; URINE BILIRUBIN NEGATIVE (<2.0 mg/dL); URINE COLOR LTYELLOW; URINE GLUCOSE (UA) NEGATIVE (NEGATIVE); URINE KETONE TRACE (NEGATIVE); URINE LEUK ESTERASE TRACE (NEGATIVE); URINE NITRITE NEGATIVE (NEGATIVE); URINE UROBILINOGEN NEGATIVE mg/dL (0.2-1.0)
[2018-04-26 17:26] LABS: URINE PROTEIN 2+ (NEGATIVE)
[2018-04-26 17:28] LABS: EPI CELLS RARE /HPF (FEW); URINE BACTERIA RARE /hpf (NONE SEEN)
[2018-04-26] MEDS: HEPARIN - 25,000 UNIT in SODIUM CHLORIDE 495 ML IV SCH (17:30)
[2018-04-26] MEDS ORDERED: HEPARIN NA (PORCINE) 5,000 UNITS/ML 1ML VIAL IVPUSH ONE (17:30)
[2018-04-26 17:35] LABS: INR 1.29 (0.82-1.09); PROTHROMBIN TIME (PATIENT) 14.6 SEC (9.7-13.0)
[2018-04-26 17:38] LABS: ACTIVATED PTT 32.3 SECONDS (25.2-36.5)
--- NOTE | 2018-04-26 17:46 | PN ---
Progress Note, Physician History of Present Illness: patient extubated calm says he is feeling well dialysis catheter removed has been going in and out of afib - Current Medication List Current Medications: Active Medications Acetaminophen (Ofirmev Injection -) 1,000 mg IVPB Q6H PRN PRN Reason: FEVER Last Admin: 04/25/18 17:23 Dose: 1,000 mg Amlodipine Besylate (Norvasc -) 10 mg NGT DAILY [facility] Last Admin: 04/26/18 09:08 Dose: 10 mg Carvedilol (Coreg -) 12.5 mg NGT BID [facility] Last Admin: 04/26/18 09:08 Dose: 12.5 mg Chlorhexidine Gluconate (Hibiclens For Decolonization -) 1 applic TP HS [facility] Last Admin: 04/25/18 22:02 Dose: 1 applic Heparin Sodium (Porcine) (Heparin -) 1,000 unit IVPUSH PRN PRN PRN Reason: Heparin Heparin Sodium (Porcine) (Heparin -) 5,000 unit IVPUSH PRN PRN PRN Reason: Heparin Hydralazine HCl (Apresoline -) 50 mg NGT TID [facility] Last Admin: 04/26/18 14:10 Dose: 50 mg Heparin Sodium (Porcine) 25, (000 unit/ Sodium Chloride) 500 mls @ 16 mls/hr IV TITR [facility]; Protocol Mupirocin (Bactroban Ointment (For Decolonization) -) 1 applic NS BID [facility] Stop: 04/27/18 21:59 Last Admin: 04/26/18 09:08 Dose: 1 applic Pantoprazole Sodium (Protonix Iv) 40 mg IVPUSH DAILY [facility] Last Admin: 04/26/18 09:07 Dose: 40 mg - Objective Vital Signs: Vital Signs Temperature 99.9 F H 04/26/18 16:00 Pulse Rate 103 H 04/26/18 16:00 Respiratory Rate 17 04/26/18 16:00 Blood Pressure 114/52 04/26/18 16:00 O2 Sat by Pulse Oximetry (%) 99 04/26/18 09:48 Constitutional: Yes: No Distress, Calm Cardiovascular: Yes: Regular Rate and Rhythm Respiratory: Yes: Regular, Poor Air Entry, Rhonchi Gastrointestinal: Yes: Normal Bowel Sounds, Soft Musculoskeletal: Yes: WNL Extremities: Yes: WNL Neurological: Yes: Alert, Oriented Psychiatric: Yes: Alert, Oriented Labs: CBC, BMP 04/26/18 05:30 04/26/18 05:30 INR, PTT INR 1.29 (0.82-1.09) H 04/26/18 16:40 Assessment/Plan patient still having low grade fevers sepsis fever ckd hemodialysis plan all cx reports noted we will continue vanco and cefepime incentive caleb resp support imaging studies as needed rest as per the icu clinically patient improving cc 40 min
[2018-04-26] MEDS: CHLORHEXIDINE GLUCONATE 4% CLEANSER FOR DECOLONIZATION TP SCH (22:30)
[2018-04-26 23:56] LABS: INR 1.27 (0.82-1.09); PROTHROMBIN TIME (PATIENT) 14.3 SEC (9.7-13.0)
[2018-04-27] MEDS: hydrALAZINE HCL 50 MG TABLET (FP) NGT SCH ×2 (05:53→13:29)
[2018-04-27 06:36] LABS: ALBUMIN 2.1 g/dl (3.4-5.0); ALK PHOS 95 U/L (45-117); ANION GAP 13 (8-16); BILIRUBIN,TOTAL 0.6 mg/dL (0.2-1.0); BLOOD UREA NITROGEN 83 mg/dL (7-18); CALCIUM 8.1 mg/dL (8.5-10.1); CHLORIDE 98 mmol/L (98-107); CO2 27 mmol/L (21-32); GLUCOSE,RANDOM 63 mg/dL (74-106); POTASSIUM 4.7 mmol/L (3.5-5.1); SGOT/AST 29 U/L (15-37); SGPT/ALT 13 U/L (12-78); SODIUM 138 mmol/L (136-145)
[2018-04-27 06:49] LABS: HEMATOCRIT 32.4 % (35.4-49); HEMOGLOBIN 10.6 GM/dL (11.7-16.9); MCH 27.9 pg (25.7-33.7); MCHC 32.7 g/dl (32.0-35.9); MEAN CELL VOLUME 85.5 fl (80-96); MEAN PLT VOLUME 9.6 fl (7.5-11.1); PLATELET COUNT 181 K/MM3 (134-434); RBC 3.79 M/mm3 (4.00-5.60); RDW 18.6 % (11.9-15.9); WHITE BLOOD COUNT 12.9 K/mm3 (4.0-10.0)
[2018-04-27 06:51] LABS: CREATININE 10.4 mg/dL (0.7-1.3)
[2018-04-27 06:52] LABS: PHOSPHOROUS 9.3 mg/dL (2.5-4.9)
[2018-04-27] MEDS: MUPIROCIN 2% TOPICAL OINTMENT FOR DECOLONIZATION NS SCH ×2 (09:48→21:04)
[2018-04-27] MEDS: PANTOPRAZOLE SODIUM 40 MG VIAL IVPUSH SCH (09:48)
[2018-04-27] MEDS: amLODIPine BESYLATE 10 MG TABLET (FP) NGT SCH (09:49)
[2018-04-27] MEDS: CARVEDILOL 12.5 MG TABLET (FP) NGT SCH (09:49)
[2018-04-27] MEDS: BENZOCAINE/MENTH/CETYLPYRD CL 1 EACH LOZENGE MM PRN ×3 (10:04→19:30)
--- NOTE | 2018-04-27 10:15 | PN ---
Progress Note (short form) - Note Progress Note: 62 WITH HTN ESRD PT JUST TOOK TOO LONG TO PLAN FOR HD OUT PT INSPITE OF REPEATED COUNSELLING ADMITTED WITH DEPRESSED MS ACCELERATED HTN VOLUME OVERLOAD INTUBATED MONDAY XRAY WHITE OUT SEDATED DIALYZED EMERGENTLY NOW EXTUBATED BUT WITH FEVER MOST LIKELY HAS PNEUMONIA POS BLOOD AND SPUTUM ON ABX REPEAT CULTURES SENT WILL GET TEMP GROIN CATHETER FOR HD IN AM AND PERMCATH NEXT WEEK WHEN CULTURES NEG SATS AND K OK DC ODONNELL START PO4 BINDER
--- NOTE | 2018-04-27 10:42 | CONSULT ---
Admitting History and Physical - Primary Care Physician PCP: Johann Woods - Admission History of Present Illness: Per EMR: Gradually less alert over a couple of weeks in this man chronic kidney disease who has been advised to accept dialysis but up until now has declined. He became acutely unresponsive over the weekend. There were no signs of seizures or focal deficits reported. Altered Mental Status Acute Respiratory Failure Hypertensive Urgency r/o Hypertensive vs Uremic Encephalopathy Acute on Chronic Renal Failure requiring HD +Troponins likely demand ischemia Dementia Pt intubated from 04/22-04/26. History Source: Patient Limitations to Obtaining History: No Limitations - Past Medical History INTELLIGENCE APPLICATIONS: Yes: Dementia Cardiovascular: Yes: CAD, CHF, Hyperlipdemia, PR Pulmonary: No: Asthma, Bronchitis, Cancer, COPD, O2 Dependent, Pneumonia, Previously Intubated, Pulmonary Embolus, Pulmonary Fibrosis, Sleep Apnea, Other Renal/: Yes: Renal Failure - Smoking History Smoking history: Unknown if ever smoked Have you smoked in the past 12 months: No - Alcohol/Substance Use Hx Alcohol Use: No - Social History ADL: Independent History - Admission Reason For Visit: RENAL FAILURE, RESPIRATORY FAILURE - Diagnostics X-ray: Report Reviewed - General Mental Status: Alert and Oriented, Awake and Alert, Able to Follow Commands Attention: Intact Ability to Follow Directions: Good Head/Neck Control: Fair - Hearing Hearing: Normal Hearing Aide: No Speech Evaluation - Communication Primary Language: FAROESE Communication: Yes: Simple Responses - Speech Production Able to Make Needs Known: Yes: WNL Intelligibility: Yes: WNL - Speech Characteristics Voice Loudness: Normal, Mildly Soft/Quiet Voice Pitch: Yes: Normal Voice Phonatory-based Quality: Yes: Normal Speech Pattern: Normal Speech Clarity: < 100% Nasal Resonance: Normal Articulation: Yes: Precise Rate of Speech: Intact - Language/Auditory Comprehension Follows: Yes: 1 Stage Simple Commands - Language/Verbal Expression Able to Respond to Simple Queries: Yes: WNL Able to Communicate Wants and Needs: Yes: WNL Functional Communication Status: Yes: WNL - Swallow Evaluation/Bedside Assessment Current Nutritional Intake: NPO, Other (received meds crushed/applesauce) Oral Secretions: Yes: WFL (coughing/self suctioniing secretions.) Dentition: Yes: Adequate Facial Symmetry at Rest: Symmetrical Lingual Movement: Symmetric Lingual Speed of Movement: Normal Lingual Movement Strgth Against Opposition: Normal Laryngeal Elevation: WFL Laryngeal Movement: Able to Palpate Rate of Intake: WFL Bolus Size: WFL Labial Seal: WFL (left upper lip swollen from intubation.) Oral Prep Time: WFL A-P Transit: WFL Pocketing: None Timing of Swallow: WFL Coughing/Throat Clear: No Change in Voice: No Recommendations - Speech Evaluation, Impression/Plan Impression: Extubated yesterday. Voice is euphonic. c/o throat pain but NOt upon phonation or deglutition. Overtly tolerates puree and 3 oz water test without overt symptomsof aspiration. Lip swollen. - Dysphagia Impressions/Plan Dysphagia Impressions: Minimal Impairment *Silent aspiration: cannot be R/O at bedside Dysphagia Treatment Plan: Elevate HOB during feed - Recommendations Diet Consistency: Other (pureed-like foods due to lip swelling. eg yogurt,hot cereal, pudding, ice cream etc. Upgrade as tolerated and desired.) Liquids: Thin Liquids
--- NOTE | 2018-04-27 11:21 | PN ---
Teaching Attending Note Name of Resident: Song Rodriguez ATTENDING PHYSICIAN STATEMENT I saw and evaluated the patient. I reviewed the resident's note and discussed the case with the resident. I agree with the resident's findings and plan as documented. SUBJECTIVE: Patient seen and examined in the ICU. Remains extubated, awake and able to follow commands. Hemodynamics stable. Reports sore throat. Intake & Output 04/24/18 04/25/18 04/26/18 04/27/18 23:59 23:59 23:59 23:59 Intake Total 2080 2257.6 837 242 Output Total 375 420 300 250 Balance 1705 1837.6 537 -8 Weight 135 lb 130 lb 15.273 oz 125 lb 7.088 oz 128 lb 3.2 oz Last Vital Signs Temp Pulse Resp BP Pulse Ox 98.9 F 87 16 140/66 98 04/27/18 10:00 04/27/18 10:00 04/27/18 10:00 04/27/18 10:00 04/27/18 08:00 Active Medications Acetaminophen (Ofirmev Injection -) 1,000 mg IVPB Q6H PRN PRN Reason: FEVER Last Admin: 04/25/18 17:23 Dose: 1,000 mg Amlodipine Besylate (Norvasc -) 10 mg NGT DAILY [facility] Last Admin: 04/27/18 09:49 Dose: 10 mg Benzocaine/Menthol (Cepacol Lozenge -) 1 each MM PRN PRN PRN Reason: SORE THROAT Last Admin: 04/27/18 10:04 Dose: 1 each Calcium Acetate (Phoslo -) 1,334 mg PO TIDCM [facility] Carvedilol (Coreg -) 12.5 mg NGT BID [facility] Last Admin: 04/27/18 09:49 Dose: 12.5 mg Chlorhexidine Gluconate (Hibiclens For Decolonization -) 1 applic TP HS [facility] Last Admin: 04/26/18 22:30 Dose: 1 applic Heparin Sodium (Porcine) (Heparin -) 1,000 unit IVPUSH PRN PRN PRN Reason: Heparin Last Admin: 04/27/18 09:49 Dose: 1,000 unit Heparin Sodium (Porcine) (Heparin -) 5,000 unit IVPUSH PRN PRN PRN Reason: Heparin Hydralazine HCl (Apresoline -) 50 mg NGT TID [facility] Last Admin: 04/27/18 05:53 Dose: 50 mg Heparin Sodium (Porcine) 25, (000 unit/ Sodium Chloride) 500 mls @ 16 mls/hr IV TITR [facility]; Protocol Last Titration: 04/27/18 09:22 Dose: 900 unit/hr, 18 mls/hr Mupirocin (Bactroban Ointment (For Decolonization) -) 1 applic NS BID [facility] Stop: 04/27/18 21:59 Last Admin: 04/27/18 09:48 Dose: 1 applic Pantoprazole Sodium (Protonix Iv) 40 mg IVPUSH DAILY [facility] Last Admin: 04/27/18 09:48 Dose: 40 mg Gen: Extubated, awake and alert Heart: RRR Lung: decreased breath sounds at the bases Abd: soft, nontender Ext: no edema Laboratory Results - last 24 hr 04/26/18 04/26/18 04/26/18 05:30 16:00 16:40 WBC RBC Hgb Hct MCV MCH MCHC RDW Plt Count MPV PT with INR 14.60 H INR 1.29 H PTT (Actin FS) 32.3 Sodium Potassium Chloride Carbon Dioxide Anion Gap BUN Creatinine Creat Clearance w eGFR Random Glucose Calcium Phosphorus Magnesium Total Bilirubin AST ALT Alkaline Phosphatase Total Protein Albumin Urine Color Ltyellow Urine Appearance Clear Urine pH 7.0 Ur Specific [place] 1.010 Urine Protein 2+ H Urine Glucose (UA) Negative Urine Ketones Trace H Urine Blood 2+ H Urine Nitrite Negative Urine Bilirubin Negative Urine Urobilinogen Negative Ur Leukocyte Esterase Trace Urine WBC (Auto) 3 Urine RBC (Auto) 3 Ur Epithelial Cells Rare Urine Bacteria Rare Random Vancomycin 3.32 04/26/18 04/27/18 04/27/18 23:30 05:30 05:30 WBC 12.9 H RBC 3.79 L Hgb 10.6 L Hct 32.4 L MCV 85.5 MCH 27.9 MCHC 32.7 RDW 18.6 H Plt Count 181 D MPV 9.6 PT with INR 14.30 H INR 1.27 H PTT (Actin FS) 65.0 H D Sodium Potassium Chloride Carbon Dioxide Anion Gap BUN Creatinine Creat Clearance w eGFR Random Glucose Calcium Phosphorus Magnesium Total Bilirubin AST ALT Alkaline Phosphatase Total Protein Albumin Urine Color Urine Appearance Urine pH Ur Specific [place] Urine Protein Urine Glucose (UA) Urine Ketones Urine Blood Urine Nitrite Urine Bilirubin Urine Urobilinogen Ur Leukocyte Esterase Urine WBC (Auto) Urine RBC (Auto) Ur Epithelial Cells Urine Bacteria Random Vancomycin 18.12 04/27/18 04/27/18 05:30 07:30 WBC RBC Hgb Hct MCV MCH MCHC RDW Plt Count MPV PT with INR INR PTT (Actin FS) 47.5 H Sodium 138 Potassium 4.7 Chloride 98 Carbon Dioxide 27 Anion Gap 13 BUN 83 H D Creatinine 10.4 H* D Creat Clearance w eGFR 5.06 Random Glucose 63 L D Calcium 8.1 L Phosphorus 9.3 H* D Magnesium 2.0 Total Bilirubin 0.6 AST 29 D ALT 13 Alkaline Phosphatase 95 Total Protein 6.0 L Albumin 2.1 L Urine Color Urine Appearance Urine pH Ur Specific [place] Urine Protein Urine Glucose (UA) Urine Ketones Urine Blood Urine Nitrite Urine Bilirubin Urine Urobilinogen Ur Leukocyte Esterase Urine WBC (Auto) Urine RBC (Auto) Ur Epithelial Cells Urine Bacteria Random Vancomycin ASSESSMENT AND PLAN: Altered Mental Status Acute Respiratory Failure Hypertensive Urgency r/o Hypertensive vs Uremic Encephalopathy Acute on Chronic Renal Failure requiring HD +Troponins likely demand ischemia Dementia Afib - O2 to maintain saturation - Swallow evaluation - ABX per ID - HD per renal - monitor urine output, creatinine - taper FiO2 to keep SpO2 >90% - DVT/GI prophylaxis - Cardiac Telemetry monitoring Dr Mejia Critical care time spent in reviewing chart, evaluating patient and formulating plan 35 min
--- NOTE | 2018-04-27 11:52 | PN ---
Physical Exam: SUBJECTIVE: Patient seen and examined. reports sore throat. Extubated yesterday. Maintaining saturation on 2L NC. Patient now in A-fib. Heparin drip started yesterday. Afebrile OBJECTIVE: Vital Signs Period Temp Pulse Resp BP Sys/Wyatt Pulse Ox Last 24 Hr 98.4 F-100 F 80-110 15-27 114-144/46-91 95-98 GENERAL: awake, alert. comfortable in NAD EYES: PERRL, sclera anicteric, conjunctiva clear. ENT: oropharynx clear without exudates LUNGS: scattered rhonchi HEART: irregularly irregular. ABDOMEN: Soft, Nd, ND, +BS EXTREMITIES: 2+ pulses, warm, no edema Laboratory Results - last 24 hr 04/26/18 04/26/18 04/26/18 05:30 16:00 16:40 WBC RBC Hgb Hct MCV MCH MCHC RDW Plt Count MPV PT with INR 14.60 H INR 1.29 H PTT (Actin FS) 32.3 Sodium Potassium Chloride Carbon Dioxide Anion Gap BUN Creatinine Creat Clearance w eGFR Random Glucose Calcium Phosphorus Magnesium Total Bilirubin AST ALT Alkaline Phosphatase Total Protein Albumin Urine Color Ltyellow Urine Appearance Clear Urine pH 7.0 Ur Specific [place] 1.010 Urine Protein 2+ H Urine Glucose (UA) Negative Urine Ketones Trace H Urine Blood 2+ H Urine Nitrite Negative Urine Bilirubin Negative Urine Urobilinogen Negative Ur Leukocyte Esterase Trace Urine WBC (Auto) 3 Urine RBC (Auto) 3 Ur Epithelial Cells Rare Urine Bacteria Rare Random Vancomycin 3.32 04/26/18 04/27/18 04/27/18 23:30 05:30 05:30 WBC 12.9 H RBC 3.79 L Hgb 10.6 L Hct 32.4 L MCV 85.5 MCH 27.9 MCHC 32.7 RDW 18.6 H Plt Count 181 D MPV 9.6 PT with INR 14.30 H INR 1.27 H PTT (Actin FS) 65.0 H D Sodium Potassium Chloride Carbon Dioxide Anion Gap BUN Creatinine Creat Clearance w eGFR Random Glucose Calcium Phosphorus Magnesium Total Bilirubin AST ALT Alkaline Phosphatase Total Protein Albumin Urine Color Urine Appearance Urine pH Ur Specific [place] Urine Protein Urine Glucose (UA) Urine Ketones Urine Blood Urine Nitrite Urine Bilirubin Urine Urobilinogen Ur Leukocyte Esterase Urine WBC (Auto) Urine RBC (Auto) Ur Epithelial Cells Urine Bacteria Random Vancomycin 18.12 04/27/18 04/27/18 05:30 07:30 WBC RBC Hgb Hct MCV MCH MCHC RDW Plt Count MPV PT with INR INR PTT (Actin FS) 47.5 H Sodium 138 Potassium 4.7 Chloride 98 Carbon Dioxide 27 Anion Gap 13 BUN 83 H D Creatinine 10.4 H* D Creat Clearance w eGFR 5.06 Random Glucose 63 L D Calcium 8.1 L Phosphorus 9.3 H* D Magnesium 2.0 Total Bilirubin 0.6 AST 29 D ALT 13 Alkaline Phosphatase 95 Total Protein 6.0 L Albumin 2.1 L Urine Color Urine Appearance Urine pH Ur Specific [place] Urine Protein Urine Glucose (UA) Urine Ketones Urine Blood Urine Nitrite Urine Bilirubin Urine Urobilinogen Ur Leukocyte Esterase Urine WBC (Auto) Urine RBC (Auto) Ur Epithelial Cells Urine Bacteria Random Vancomycin Active Medications Generic Name Dose Route Start Last Admin Trade Name Freq PRN Reason Stop Dose Admin Acetaminophen 1,000 mg 04/25/18 11:20 04/25/18 17:23 Ofirmev Injection - IVPB 1,000 mg Q6H PRN Administration FEVER Amlodipine Besylate 10 mg 04/24/18 10:00 04/27/18 09:49 Norvasc - NGT 10 mg DAILY [facility] Administration Benzocaine/Menthol 1 each 04/27/18 06:07 04/27/18 10:04 Cepacol Lozenge - MM 1 each PRN PRN Administration SORE THROAT Calcium Acetate 1,334 mg 04/27/18 12:00 Phoslo - PO TIDCM [facility] Carvedilol 12.5 mg 04/24/18 10:00 04/27/18 09:49 Coreg - NGT 12.5 mg BID [facility] Administration Chlorhexidine Gluconate 1 applic 04/22/18 22:00 04/26/18 22:30 Hibiclens For Decolonization - TP 1 applic HS [facility] Administration Heparin Sodium (Porcine) 1,000 unit 04/26/18 15:45 04/27/18 09:49 Heparin - IVPUSH 1,000 unit PRN PRN Administration Heparin Heparin Sodium (Porcine) 5,000 unit 04/26/18 15:45 Heparin - IVPUSH PRN PRN Heparin Hydralazine HCl 50 mg 04/24/18 14:00 04/27/18 05:53 Apresoline - NGT 50 mg TID [facility] Administration Heparin Sodium (Porcine) 25, 500 mls @ 16 mls/hr 04/26/18 16:30 04/27/18 09: 22 000 unit/ Sodium Chloride IV 900 unit/hr TITR [facility] 18 mls/hr Titration Protocol 800 UNIT/HR Mupirocin 1 applic 04/22/18 22:00 04/27/18 09:48 Bactroban Ointment (For Decolonization) - NS 04/27/18 21:59 1 applic BID [facility] Administration Pantoprazole Sodium 40 mg 04/23/18 11:30 04/27/18 09:48 Protonix Iv IVPUSH 40 mg DAILY [facility] Administration ASSESSMENT/PLAN: NEURO #Acute toxic metabolic encephalopathy -resolved -likely secondary to a combination of hypertensive emergency and uremia -HD per renal with ultrafiltration -BP monitoring PULM #Acute respiratory failure -resolved -Oxygen supplementation w/ 2L nasal cannula -keep SpO2 >90% CV #Hypertensive urgency -resolved -Cont. coreg 12.5mg BID, Amlodipine 10mg, Hydralazine 50 TID -BP monitoring -ECHO: moderate to severe L ventricular systolic dysfunction #Afib -Heparin gtt -patient says he has history of A-fib and was on coumadin. -cont. Coreg 12.5 BID ID -tmax 102.8 -Bcx positive for Gram + Cocci, await final cultures -IV abx: Vancomycin, Ceftazidime -FU repeat cultures -Acute on Chronic CKD -HD as needed -Plan for temp catheter in AM -Also plan for permacath for next week once culture negative. -monitor urine output, creatinine -renal on board -avoid nephrotoxins FEN -No iv fluids -monitor lytes -Tube feeds via OG PPX -hep gtt -protonix iv Transfer to Tele Visit type - Emergency Visit Emergency Visit: Yes ED Registration Date: 04/22/18 Care time: The patient presented to the Emergency Department on the above date and was hospitalized for further evaluation of their emergent condition. - New Patient This patient is new to me today: No - Critical Care Critical Care patient: Yes Total Critical Care Time (in minutes): 40 Critical Care Statement: The care of this patient involved high complexity decision making to prevent further life threatening deterioration of the patient 's condition and/or to evaluate & treat vital organ system(s) failure or risk of failure.
--- NOTE | 2018-04-27 13:02 | PN ---
Physical Exam: SUBJECTIVE: Patient seen and examined. Extubated yesterday, tolerating NC. Was dialyzed yesterday and groin catheter removed due to bacteremia. Still on antibiotics. C/o of sore throat. Pt was started on heparin for afib yesterday. OBJECTIVE: Vital Signs Period Temp Pulse Resp BP Sys/Wyatt Pulse Ox Last 24 Hr 98.4 F-99.9 F 80-110 15-24 114-140/46-91 95-98 Vital Signs Temp 98.5 F 04/27/18 18:00 Pulse 86 04/27/18 20:00 Resp 22 04/27/18 20:41 BP 140/60 04/27/18 20:00 Pulse Ox 98 04/27/18 20:49 Intake & Output 04/26/18 04/27/18 04/27/18 23:59 11:59 23:59 Intake Total 187 242 314 Output Total 250 250 175 Balance -63 -8 139 Weight 58.151 kg 58.06 kg Intake: IV 37 192 214 DIPRIVAN - 1,000,000 mcg 21 In 100 ml @ 5 MCG/KG/MIN IVPB TITR [facility] Rx#: [id number] Heparin - 25,000 Unit In 16 192 214 Normal Saline - 495 ml @ 800 UNIT/HR 16 mls/hr IV TITR [facility] Rx#:[id number] iv fentanyl 0 Oral 50 50 100 Tube Feeding 0 Tube Irrigant 100 Output: Urine 250 250 175 Mcbride 250 250 100 Void 75 Other: Voiding Method Indwelling Catheter Indwelling Catheter Urinal Bowel Movement No No No Height 1.78 m Body Mass Index (BMI) 18.3 Weight Measurement Method Built in [facility] Intake & Output 04/24/18 04/25/18 04/26/18 04/27/18 23:59 23:59 23:59 23:59 Intake Total 2080 2257.6 837 556 Output Total 375 420 300 425 Balance 1705 1837.6 537 131 Weight 61.235 kg 59.4 kg 56.9 kg 58.06 kg GENERAL: The patient is awake, alert, and fully oriented, in no acute distress. NC HEAD: Normal with no signs of trauma. EYES: PERRL, extraocular movements intact, sclera anicteric, conjunctiva clear. ENT: Swollen lips. NC in place LUNGS: Breath sounds equal, clear to auscultation bilaterally HEART: irregular, S1, S2 without murmur ABDOMEN: Soft, nontender, nondistended, normoactive bowel sounds EXTREMITIES: 2+ pulses, warm, well-perfused, no edema. NEUROLOGICAL: AAOx3, no facial droop, normal tone and strength globally. Able to verbalize, gait not observed. CBC, BMP 04/27/18 05:30 04/27/18 05:30 Laboratory Results - last 24 hr 04/26/18 04/26/18 04/26/18 05:30 16:00 16:40 WBC RBC Hgb Hct MCV MCH MCHC RDW Plt Count MPV PT with INR 14.60 H INR 1.29 H PTT (Actin FS) 32.3 Sodium Potassium Chloride Carbon Dioxide Anion Gap BUN Creatinine Creat Clearance w eGFR Random Glucose Calcium Phosphorus Magnesium Total Bilirubin AST ALT Alkaline Phosphatase Total Protein Albumin Urine Color Ltyellow Urine Appearance Clear Urine pH 7.0 Ur Specific [place] 1.010 Urine Protein 2+ H Urine Glucose (UA) Negative Urine Ketones Trace H Urine Blood 2+ H Urine Nitrite Negative Urine Bilirubin Negative Urine Urobilinogen Negative Ur Leukocyte Esterase Trace Urine WBC (Auto) 3 Urine RBC (Auto) 3 Ur Epithelial Cells Rare Urine Bacteria Rare Random Vancomycin 3.32 04/26/18 04/27/18 04/27/18 23:30 05:30 05:30 WBC 12.9 H RBC 3.79 L Hgb 10.6 L Hct 32.4 L MCV 85.5 MCH 27.9 MCHC 32.7 RDW 18.6 H Plt Count 181 D MPV 9.6 PT with INR 14.30 H INR 1.27 H PTT (Actin FS) 65.0 H D Sodium Potassium Chloride Carbon Dioxide Anion Gap BUN Creatinine Creat Clearance w eGFR Random Glucose Calcium Phosphorus Magnesium Total Bilirubin AST ALT Alkaline Phosphatase Total Protein Albumin Urine Color Urine Appearance Urine pH Ur Specific [place] Urine Protein Urine Glucose (UA) Urine Ketones Urine Blood Urine Nitrite Urine Bilirubin Urine Urobilinogen Ur Leukocyte Esterase Urine WBC (Auto) Urine RBC (Auto) Ur Epithelial Cells Urine Bacteria Random Vancomycin 18.12 04/27/18 04/27/18 05:30 07:30 WBC RBC Hgb Hct MCV MCH MCHC RDW Plt Count MPV PT with INR INR PTT (Actin FS) 47.5 H Sodium 138 Potassium 4.7 Chloride 98 Carbon Dioxide 27 Anion Gap 13 BUN 83 H D Creatinine 10.4 H* D Creat Clearance w eGFR 5.06 Random Glucose 63 L D Calcium 8.1 L Phosphorus 9.3 H* D Magnesium 2.0 Total Bilirubin 0.6 AST 29 D ALT 13 Alkaline Phosphatase 95 Total Protein 6.0 L Albumin 2.1 L Urine Color Urine Appearance Urine pH Ur Specific [place] Urine Protein Urine Glucose (UA) Urine Ketones Urine Blood Urine Nitrite Urine Bilirubin Urine Urobilinogen Ur Leukocyte Esterase Urine WBC (Auto) Urine RBC (Auto) Ur Epithelial Cells Urine Bacteria Random Vancomycin Active Medications Generic Name Dose Route Start Last Admin Trade Name Freq PRN Reason Stop Dose Admin Acetaminophen 1,000 mg 04/25/18 11:20 04/25/18 17:23 Ofirmev Injection - IVPB 1,000 mg Q6H PRN Administration FEVER Amlodipine Besylate 10 mg 04/24/18 10:00 04/27/18 09:49 Norvasc - NGT 10 mg DAILY [facility] Administration Benzocaine/Menthol 1 each 04/27/18 06:07 04/27/18 10:04 Cepacol Lozenge - MM 1 each PRN PRN Administration SORE THROAT Calcium Acetate 1,334 mg 04/27/18 12:00 Phoslo - PO TIDCM [facility] Carvedilol 12.5 mg 04/24/18 10:00 04/27/18 09:49 Coreg - NGT 12.5 mg BID [facility] Administration Chlorhexidine Gluconate 1 applic 04/22/18 22:00 04/26/18 22:30 Hibiclens For Decolonization - TP 1 applic HS [facility] Administration Heparin Sodium (Porcine) 1,000 unit 04/26/18 15:45 04/27/18 09:49 Heparin - IVPUSH 1,000 unit PRN PRN Administration Heparin Heparin Sodium (Porcine) 5,000 unit 04/26/18 15:45 Heparin - IVPUSH PRN PRN Heparin Hydralazine HCl 50 mg 04/24/18 14:00 04/27/18 05:53 Apresoline - NGT 50 mg TID [facility] Administration Heparin Sodium (Porcine) 25, 500 mls @ 16 mls/hr 04/26/18 16:30 04/27/18 09: 22 000 unit/ Sodium Chloride IV 900 unit/hr TITR [facility] 18 mls/hr Titration Protocol 800 UNIT/HR Mupirocin 1 applic 04/22/18 22:00 04/27/18 09:48 Bactroban Ointment (For Decolonization) - NS 04/27/18 21:59 1 applic BID [facility] Administration Pantoprazole Sodium 40 mg 04/23/18 11:30 04/27/18 09:48 Protonix Iv IVPUSH 40 mg DAILY REPLACED BY [facility] Administration Current Medications Acetaminophen (Ofirmev Injection -) 1,000 mg IVPB Q6H PRN PRN Reason: FEVER Atorvastatin Calcium (Lipitor -) 80 mg PO [facility] Last Admin: 04/27/18 21:04 Dose: 80 mg Benzocaine/Menthol (Cepacol Lozenge -) 1 each MM PRN PRN PRN Reason: SORE THROAT Last Admin: 04/27/18 19:30 Dose: 1 each Calcium Acetate (Phoslo -) 1,334 mg PO TIDCM REPLACED BY [facility] Carvedilol (Coreg -) 12.5 mg PO BID REPLACED BY [facility] Last Admin: 04/27/18 21:04 Dose: 12.5 mg Chlorhexidine Gluconate (Hibiclens For Decolonization -) 1 applic TP HS REPLACED BY [facility] Last Admin: 04/27/18 21:05 Dose: 1 applic Heparin Sodium (Porcine) (Heparin -) 1,000 unit IVPUSH PRN PRN PRN Reason: Heparin Heparin Sodium (Porcine) (Heparin -) 5,000 unit IVPUSH PRN PRN PRN Reason: Heparin Hydralazine HCl (Apresoline -) 50 mg PO TID REPLACED BY [facility] Last Admin: 04/27/18 21:04 Dose: 50 mg Heparin Sodium (Porcine) 25, (000 unit/ Sodium Chloride) 500 mls @ 16 mls/hr IV TITR REPLACED BY [facility]; Protocol Last Admin: 04/27/18 18:17 Dose: 1,050 unit/hr, 21 mls/hr Isosorbide Mononitrate (Imdur -) 60 mg PO DAILY REPLACED BY [facility] Mupirocin (Bactroban Ointment (For Decolonization) -) 1 applic NS BID REPLACED BY [facility] Stop: 05/02/18 21:59 Last Admin: 04/27/18 21:04 Dose: 1 applic Pantoprazole Sodium (Protonix Iv) 40 mg IVPUSH DAILY REPLACED BY [facility] Valsartan (Diovan -) 40 mg PO DAILY REPLACED BY [facility] Ambulatory Orders Amlodipine Besylate [Norvasc -] 10 mg PO DAILY 04/22/18 Aspirin Coated [Ecotrin -] 81 mg PO DAILY 04/22/18 Carvedilol [Coreg -] 12.5 mg PO BID 04/22/18 Donepezil HCl [Aricept -] 10 mg PO DAILY 04/22/18 Hydralazine HCl 50 mg PO TID 04/22/18 Tamsulosin HCl [Flomax] 0.4 mg PO DAILY 04/22/18 Atorvastatin Calcium 80 mg PO DAILY 04/23/18 Calcium Acetate [Phoslo -] 667 mg PO TIDCM 04/23/18 Isosorbide Mononitrate [Isosorbide Mononitrate ER] 60 mg PO DAILY 04/23/18 Sodium Bicarbonate - 650 mg PO TID 04/23/18 Microbiology 04/26/18 17:00 Blood - Peripheral Venous Blood Culture - Preliminary NO GROWTH OBTAINED AFTER 24 HOURS, INCUBATION TO CONTINUE FOR 4 DAYS. 04/26/18 16:40 Blood - Peripheral Venous Blood Culture - Preliminary NO GROWTH OBTAINED AFTER 24 HOURS, INCUBATION TO CONTINUE FOR 4 DAYS. 04/26/18 16:30 Sputum - Expectorated Gram Stain - Final 04/25/18 10:24 Blood - Peripheral Venous Blood Culture - Preliminary Streptococcus Constellatus Pending Organism 04/25/18 11:10 Sputum - Endotrachea Suction/Ventilator Gram Stain - Final 04/25/18 11:10 Sputum - Endotrachea Suction/Ventilator Sputum Culture - Final Klebsiella Pneumoniae Mr S Aureus 04/25/18 10:40 Blood - Peripheral Venous Blood Culture - Preliminary Alpha Hemolytic Streptococcus Head CT: negative for intracranial bleed -ECHO 04/23/18: moderate to severe L ventricular systolic dysfunction Courtesy of Dr Mujica-per records from [facility]: January 17, 2015 R&LHc @ [facility]: 3 vessel CAD with DATABASE DESIGN ANALYST RVA and OM2, elevated right and left heart pressures January 19, 2015 Echo: Mod LVH moderate decreased LVEF 40% with AK inferior and inferoseptal, mild AR, MR, mild LAE January 22, 2015 Lexiscan Myoview: Dense scar inferior wall, large lateral ischemia, inferolateral AK, LVEF 30$ January 21, 2015 Rest and redistribution Thallium: Scar involving entire inferior wall, basal to mid inferolateral, basal inferoseptal, and apex, no significant hibernating myocardiaum, dilated LV with severely decreased LVEF 27% April 23, 2018 Echo: Moderately dilated with moderate decreased LV fxn, mild decreased RV fxn, mild AR, mild LAE ASSESSMENT/PLAN: 62 yo M h/o CKD stage 5 on HD, Acute on chronic diastolic/systolic failure, paroxysmal afib, CAD s/p RI admitted to ICU for acute metabolic encephalopathy secondary to hypertensive emergency and uremia, intubated, dialyzed, found to be bacteremic now on AB Sepsis Sepsis resolving on antibiotic-On vanc and ceftazidime Next vanco levels pending vanc level- per Dr Lorenzo Initial bld cx-alpha hemolyticus, sputum-Klebsiella, MRSA, repeat bld cx- prelim-negative tylenol iv UA- trace LEs Afib Previously diagnosed in [facility] EKG 04/26/18- Afib Cont Heparin gtt Cardiology consult- Dr Mujica- apprec recs resume coumadin per INR once PC has been placed Acute Metabolic Encephalopathy - 12/08 hypertensive /uremic encephalopathy - Resolved -Pt extubated, tolerating well, on NC -OOB in to chair -PT Sore throat s/p extubation Cepachol lozenges Speech and swallow eval Dysphagia puree diet Uremia -Pt receiving HD -HD groin catheter removed -Pt for permacath for monday - [employer] on 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 Jeannette Kaiser at [facility] upon d/c Dementia - aricept on hold BPH - flomax on Hold FEN - Hold IVF due to hypertension - Replete lytes PRN, or dialyze as needed Dispo: Tele transfer Visit type - Emergency Visit Emergency Visit: Yes ED Registration Date: 04/22/18 Care time: The patient presented to the Emergency Department on the above date and was hospitalized for further evaluation of their emergent condition. - New Patient This patient is new to me today: No - Critical Care Critical Care patient: Yes Total Critical Care Time (in minutes): 45 Critical Care Statement: The care of this patient involved high complexity decision making to prevent further life threatening deterioration of the patient 's condition and/or to evaluate & treat vital organ system(s) failure or risk of failure. - Discharge Referral Referred to [facility] Med [facility] No
[2018-04-27] MEDS: CALCIUM ACETATE 667 MG CAPSULE (FP) PO SCH ×2 (13:11→17:50)
--- NOTE | 2018-04-27 13:17 | CON.CARD ---
Consult Consult Specialty:: Cardiology Referred by:: Hospitalist Medicine Reason for Consultation:: Hypertensive urgency - History of Present Illness Chief Complaint: Dyspnea History of Present Illness: This is a 62yo M with h/o CAD s/p NM, moderate ischemic cardiomyopathy, hypertensive cardiomyopathy, CKD (has refused HD in the past) who presented to [facility] with progressively worsening shortness of breath, fever, altered mental status, respiratory failure, pulmonary edema in context of hypertensive emergency, volume removal via dialysis initiated, extubated, receiving abx course for alpha hemolytic strep bacteremia. Last saw Dr. Jeannette Kaiser 2016. - History Source History Provided By: Medical Record Limitations to Obtaining History: Clinical Condition - Past Medical History [employer]: Yes: Dementia Cardio/Vascular: Yes: CAD, CHF, Hyperlipdemia, NM Pulmonary: No: Asthma, Bronchitis, Cancer, COPD, O2 Dependent, Pneumonia, Previously Intubated, Pulmonary Embolus, Pulmonary Fibrosis, Sleep Apnea, Other Renal/: Yes: Renal Failure - Alcohol/Substance Use Hx Alcohol Use: No - Smoking History Smoking history: Unknown if ever smoked Have you smoked in the past 12 months: No - Social History Usual Living Arrangement: With Spouse ADL: Independent Home Medications - Allergies Allergies/Adverse Reactions: Allergies Allergy/AdvReac Type Severity Reaction Status Date / Time No Known Allergies Allergy Verified 04/22/18 14:21 - Home Medications Home Medications: Ambulatory Orders Amlodipine Besylate [Norvasc -] 10 mg PO DAILY 04/22/18 Aspirin Coated [Ecotrin -] 81 mg PO DAILY 04/22/18 Carvedilol [Coreg -] 12.5 mg PO BID 04/22/18 Donepezil HCl [Aricept -] 10 mg PO DAILY 04/22/18 Hydralazine HCl 50 mg PO TID 04/22/18 Tamsulosin HCl [Flomax] 0.4 mg PO DAILY 04/22/18 Atorvastatin Calcium 80 mg PO DAILY 04/23/18 Calcium Acetate [Phoslo -] 667 mg PO TIDCM 04/23/18 Isosorbide Mononitrate [Isosorbide Mononitrate ER] 60 mg PO DAILY 04/23/18 Sodium Bicarbonate - 650 mg PO TID 04/23/18 Review of Systems - Review of Systems Cardiovascular: reports: Shortness of Breath Respiratory: reports: SOB Vital Signs: Vital Signs Temperature 99.0 F 04/27/18 12:00 Pulse Rate 82 04/27/18 12:00 Respiratory Rate 17 04/27/18 12:00 Blood Pressure 129/63 04/27/18 12:00 O2 Sat by Pulse Oximetry (%) 98 04/27/18 08:00 Constitutional: Yes: No Distress, Calm, Thin Neck: Yes: Supple Respiratory: Yes: Regular, Diminished Gastrointestinal: Yes: Normal Bowel Sounds, Soft Cardiovascular: Yes: Regular Rate and Rhythm JVD: No Carotid Bruit: No Heart Sounds: Yes: S1, S2 Edema: No - Other Data Labs, Other Data: CBC, BMP 04/27/18 05:30 04/27/18 05:30 INR, PTT INR 1.27 (0.82-1.09) H 04/26/18 23:30 Problem List - Problems (1) Acute on chronic systolic (congestive) heart failure Code(s): I50.23 - ACUTE ON CHRONIC SYSTOLIC (CONGESTIVE) HEART FAILURE (2) Hypertensive cardiomyopathy Code(s): I11.9 - HYPERTENSIVE HEART DISEASE WITHOUT HEART FAILURE; I43 - CARDIOMYOPATHY IN DISEASES CLASSIFIED ELSEWHERE Qualifiers: Heart failure presence: with heart failure Qualified Code(s): I11.0 - Hypertensive heart disease with heart failure; I43 - Cardiomyopathy in diseases classified elsewhere (3) Hyperlipidemia Code(s): E78.5 - HYPERLIPIDEMIA, UNSPECIFIED Qualifiers: Hyperlipidemia type: pure hypercholesterolemia Qualified Code(s): E78.00 - Pure hypercholesterolemia, unspecified; E78.0 - Pure hypercholesterolemia (4) Ischemic cardiomyopathy Code(s): I25.5 - ISCHEMIC CARDIOMYOPATHY (5) End stage renal disease Code(s): N18.6 - END STAGE RENAL DISEASE (6) Old inferolateral myocardial infarction Code(s): I25.2 - OLD MYOCARDIAL INFARCTION Assessment/Plan January 17, 2015 R&LHc @ [facility]: 3 vessel CAD with COPPER TAPPER RVA and OM2, elevated right and left heart pressures January 19, 2015 Echo: Mod LVH moderate decreased LVEF 40% with AK inferior and inferoseptal, mild AR, MR, mild LAE January 22, 2015 Lexiscan Myoview: Dense scar inferior wall, large lateral ischemia, inferolateral AK, LVEF 30$ January 21, 2015 Rest and redistribution Thallium: Scar involving entire inferior wall, basal to mid inferolateral, basal inferoseptal, and apex, no significant hibernating myocardiaum, dilated LV with severely decreased LVEF 27% April 23, 2018 Echo: Moderately dilated with moderate decreased LV fxn, mild decreased RV fxn, mild AR, mild LAE 1. Acute on chronic diastolic/systolic failure and pulmonary edema referable to 2. Hypertensive urgency in context of dietary/medical indiscretion (previously declined HD) 3. Post acute hypoxic respiratory failure 4. CAD s/p NM, demand ischemic injury 5. Ischemic cardiomyopathy (moderate) 6. Acute on Chronic Renal Failure requiring HD 7. Paroxysmal atrial fibrillation->SR 8. Resolved Altered Mental Status r/o Hypertensive vs Uremic Encephalopathy P:1. Volume removal via UF/HD, plan for PC 2. Continue carvedilol 12.5 bid, hydralazine 50 tid, resume Imdur 60 qd (BiDil) and Lipitor 80 qd, change norvasc to Diovan, eventual entresto as outpatient 3. Continue heparin gtt for now and resume coumadin per INR once PC has been placed 4. O2 to maintain saturation 5. Thank you for consultative opportunity, case d/w resident team, to f/u with Dr. Jeannette Kaiser at [facility] upon d/c
--- NOTE | 2018-04-27 16:28 | PN ---
Progress Note, Physician History of Present Illness: awake alert no issues blood cx reports noted - Current Medication List Current Medications: Active Medications Acetaminophen (Ofirmev Injection -) 1,000 mg IVPB Q6H PRN PRN Reason: FEVER Last Admin: 04/25/18 17:23 Dose: 1,000 mg Atorvastatin Calcium (Lipitor -) 80 mg PO HS [facility] Benzocaine/Menthol (Cepacol Lozenge -) 1 each MM PRN PRN PRN Reason: SORE THROAT Last Admin: 04/27/18 10:04 Dose: 1 each Calcium Acetate (Phoslo -) 1,334 mg PO TIDCM [facility] Last Admin: 04/27/18 13:11 Dose: 1,334 mg Carvedilol (Coreg -) 12.5 mg PO BID [facility] Chlorhexidine Gluconate (Hibiclens For Decolonization -) 1 applic TP HS [facility] Last Admin: 04/26/18 22:30 Dose: 1 applic Heparin Sodium (Porcine) (Heparin -) 1,000 unit IVPUSH PRN PRN PRN Reason: Heparin Last Admin: 04/27/18 09:49 Dose: 1,000 unit Heparin Sodium (Porcine) (Heparin -) 5,000 unit IVPUSH PRN PRN PRN Reason: Heparin Hydralazine HCl (Apresoline -) 50 mg PO TID [facility] Heparin Sodium (Porcine) 25, (000 unit/ Sodium Chloride) 500 mls @ 16 mls/hr IV TITR [facility]; Protocol Last Titration: 04/27/18 09:22 Dose: 900 unit/hr, 18 mls/hr Isosorbide Mononitrate (Imdur -) 60 mg PO DAILY [facility] Mupirocin (Bactroban Ointment (For Decolonization) -) 1 applic NS BID [facility] Stop: 04/27/18 21:59 Last Admin: 04/27/18 09:48 Dose: 1 applic Pantoprazole Sodium (Protonix Iv) 40 mg IVPUSH DAILY [facility] Last Admin: 04/27/18 09:48 Dose: 40 mg Valsartan (Diovan -) 40 mg PO DAILY [facility] - Objective Vital Signs: Vital Signs Temperature 98.6 F 04/27/18 16:00 Pulse Rate 83 04/27/18 16:00 Respiratory Rate 17 04/27/18 16:00 Blood Pressure 132/63 04/27/18 16:00 O2 Sat by Pulse Oximetry (%) 98 04/27/18 08:00 Constitutional: Yes: No Distress, Calm HENT: Yes: Atraumatic, Normocephalic, Other (poor oral dentetation) Neck: Yes: Supple Cardiovascular: Yes: Regular Rate and Rhythm Respiratory: Yes: Regular, CTA Bilaterally Gastrointestinal: Yes: Normal Bowel Sounds, Soft Musculoskeletal: Yes: WNL Extremities: Yes: Other Neurological: Yes: Alert, Oriented Psychiatric: Yes: Alert, Oriented Labs: CBC, BMP 04/27/18 05:30 04/27/18 05:30 INR, PTT INR 1.27 (0.82-1.09) H 04/26/18 23:30 Assessment/Plan patient has bad oral cavity sepsis fever ckd hemodialysis plan all cx reports noted we will continue vanco and cefepime incentive caleb resp support imaging studies as needed rest as per the icu await for repeat cx one organism is still pending echo negative cc time 40 min
[2018-04-27] MEDS: HEPARIN - 25,000 UNIT in SODIUM CHLORIDE 495 ML IV SCH ×2 (16:30→18:17)
--- NOTE | 2018-04-27 17:57 | PN ---
Teaching Attending Note Name of Resident: Geni Sorensen ATTENDING PHYSICIAN STATEMENT I saw and evaluated the patient. I reviewed the resident's note and discussed the case with the resident. I agree with the resident's findings and plan as documented with exceptions below. SUBJECTIVE: Patient seen and examined. Some sore throat since extubation, no dyspnea, abdominal or urinary symptoms. OBJECTIVE: Vital Signs Period Temp Pulse Resp BP Sys/Wyatt Pulse Ox Last 24 Hr 98.4 F-99.2 F 80-110 16-22 116-140/46-91 95-98 Intake & Output 04/24/18 04/25/18 04/26/18 04/27/18 23:59 23:59 23:59 23:59 Intake Total 2080 2257.6 837 342 Output Total 375 420 300 425 Balance 1705 1837.6 537 -83 Weight 135 lb 130 lb 15.273 oz 125 lb 7.088 oz 128 lb General: sitting in bed in no acute distress Chest: no rales or wheezing Abdomen:Soft, NT, ND Extremities: no edema Home Medications Medication Instructions Recorded Amlodipine Besylate [Norvasc -] 10 mg PO DAILY 04/22/18 Aspirin Coated [Ecotrin -] 81 mg PO DAILY 04/22/18 Carvedilol [Coreg -] 12.5 mg PO BID 04/22/18 Donepezil HCl [Aricept -] 10 mg PO DAILY 04/22/18 Hydralazine HCl 50 mg PO TID 04/22/18 Tamsulosin HCl [Flomax] 0.4 mg PO DAILY 04/22/18 Atorvastatin Calcium 80 mg PO DAILY 04/23/18 Calcium Acetate [Phoslo -] 667 mg PO TIDCM 04/23/18 Isosorbide Mononitrate [Isosorbide 60 mg PO DAILY 04/23/18 Mononitrate ER] Sodium Bicarbonate - 650 mg PO TID 04/23/18 Active Medications Acetaminophen (Ofirmev Injection -) 1,000 mg IVPB Q6H PRN PRN Reason: FEVER Last Admin: 04/25/18 17:23 Dose: 1,000 mg Atorvastatin Calcium (Lipitor -) 80 mg PO HS [facility] Benzocaine/Menthol (Cepacol Lozenge -) 1 each MM PRN PRN PRN Reason: SORE THROAT Last Admin: 06/22/18 10:04 Dose: 1 each Calcium Acetate (Phoslo -) 1,334 mg PO TIDCM [facility] Last Admin: 04/27/18 17:50 Dose: 1,334 mg Carvedilol (Coreg -) 12.5 mg PO BID [facility] Chlorhexidine Gluconate (Hibiclens For Decolonization -) 1 applic TP HS [facility] Last Admin: 04/26/18 22:30 Dose: 1 applic Heparin Sodium (Porcine) (Heparin -) 1,000 unit IVPUSH PRN PRN PRN Reason: Heparin Last Admin: 04/27/18 09:49 Dose: 1,000 unit Heparin Sodium (Porcine) (Heparin -) 5,000 unit IVPUSH PRN PRN PRN Reason: Heparin Last Admin: 04/27/18 17:50 Dose: 5,000 unit Hydralazine HCl (Apresoline -) 50 mg PO TID [facility] Heparin Sodium (Porcine) 25, (000 unit/ Sodium Chloride) 500 mls @ 16 mls/hr IV TITR [facility]; Protocol Last Titration: 04/27/18 17:49 Dose: 1,050 unit/hr, 21 mls/hr Isosorbide Mononitrate (Imdur -) 60 mg PO DAILY [facility] Mupirocin (Bactroban Ointment (For Decolonization) -) 1 applic NS BID [facility] Stop: 04/27/18 21:59 Last Admin: 04/27/18 09:48 Dose: 1 applic Pantoprazole Sodium (Protonix Iv) 40 mg IVPUSH DAILY [facility] Last Admin: 04/27/18 09:48 Dose: 40 mg Valsartan (Diovan -) 40 mg PO DAILY [facility] Laboratory Results - last 24 hr 04/26/18 04/27/18 04/27/18 23:30 05:30 05:30 WBC 12.9 H RBC 3.79 L Hgb 10.6 L Hct 32.4 L MCV 85.5 MCH 27.9 MCHC 32.7 RDW 18.6 H Plt Count 181 D MPV 9.6 PT with INR 14.30 H INR 1.27 H PTT (Actin FS) 65.0 H D Sodium Potassium Chloride Carbon Dioxide Anion Gap BUN Creatinine Creat Clearance w eGFR Random Glucose Calcium Phosphorus Magnesium Total Bilirubin AST ALT Alkaline Phosphatase Total Protein Albumin Random Vancomycin 18.12 04/27/18 04/27/18 04/27/18 05:30 07:30 15:30 WBC RBC Hgb Hct MCV MCH MCHC RDW Plt Count MPV PT with INR INR PTT (Actin FS) 47.5 H 36.8 Sodium 138 Potassium 4.7 Chloride 98 Carbon Dioxide 27 Anion Gap 13 BUN 83 H D Creatinine 10.4 H* D Creat Clearance w eGFR 5.06 Random Glucose 63 L D Calcium 8.1 L Phosphorus 9.3 H* D Magnesium 2.0 Total Bilirubin 0.6 AST 29 D ALT 13 Alkaline Phosphatase 95 Total Protein 6.0 L Albumin 2.1 L Random Vancomycin Microbiology 04/26/18 17:00 Blood - Peripheral Venous Blood Culture - Preliminary NO GROWTH OBTAINED AFTER 24 HOURS, INCUBATION TO CONTINUE FOR 4 DAYS. 04/26/18 16:40 Blood - Peripheral Venous Blood Culture - Preliminary NO GROWTH OBTAINED AFTER 24 HOURS, INCUBATION TO CONTINUE FOR 4 DAYS. 04/26/18 16:30 Sputum - Expectorated Gram Stain - Final 04/25/18 10:24 Blood - Peripheral Venous Blood Culture - Preliminary Streptococcus Constellatus Pending Organism 04/25/18 11:10 Sputum - Endotrachea Suction/Ventilator Gram Stain - Final 04/25/18 11:10 Sputum - Endotrachea Suction/Ventilator Sputum Culture - Final Klebsiella Pneumoniae Mr S Aureus 04/25/18 10:40 Blood - Peripheral Venous Blood Culture - Preliminary Alpha Hemolytic Streptococcus 04/25/18 10:10 Urine - Urine Mcbride Urine Culture - Final NO GROWTH OBTAINED 04/22/18 18:10 Urine - Urine Mcbride Urine Culture - Final NO GROWTH OBTAINED ASSESSMENT AND PLAN: 62yo M with PMH CKD (has refused HD in the past), and CAD presenting with progressively worsening shortness of breath and altered mental status. in the ER was found to have SBP 240. code larkin was activated in the ER -Acute toxic metabolic encephalopathy, likely uremic + hypertensive -Acute hypoxic respiratory failure, suspect fluid overload from ESRD +/- ARDS -Hypertensive emergency -Acute on CKD stage V -Elevated troponin, suspect demand ischemia from above -Atrial fibrillation, ?new -Sepsis with GPC bacteremia, ?femoral line related. -Normocytic anemia, suspect from CKD/dilutional -Dementia Plan: ID input noted, s/p Cefepime/vanco with HD, blood cx noted. Vanco levels in AM. Extubated, doing well,speech/swallow eval noted, resume diet. s/p shiley 04/22 with emergent HD, removed 04/25. Off labetalol drip. BP improved on home oral anti-hypertensives. Discussed with Dr. Oleary, plan for HD cath tomorrow pending repeat blood cx. Eventually permacath once blood cx neg. 2D echo results reviewed. Cardiology consulted, input appreciated. Resume oral meds as colby. Trend h/h, hold aricept. DVTPPx heparin Dispo pending clinical improvement. The care of this patient involved high complexity decision making to prevent further life threatening deterioration of the patient's condition and/or to evaluate & treat vital organ system(s) failure or risk of failure. Critical care time spent in reviewing chart, evaluating patient and formulating plan - 40 minutes.
[2018-04-27] MEDS ORDERED: HEPARIN NA (PORCINE) 5,000 UNITS/ML 1ML VIAL IVPUSH PRN ×3 (18:17)
[2018-04-27] MEDS: ATORVASTATIN CA 80 MG TABLET (FP) PO SCH (21:04)
[2018-04-27] MEDS: hydrALAZINE HCL 50 MG TABLET (FP) PO SCH (21:04)
[2018-04-27] MEDS: CARVEDILOL 12.5 MG TABLET (FP) PO SCH (21:04)
[2018-04-27] MEDS: CHLORHEXIDINE GLUCONATE 4% CLEANSER FOR DECOLONIZATION TP SCH (21:05)
[2018-04-28] MEDS: hydrALAZINE HCL 50 MG TABLET (FP) PO SCH ×3 (05:22→21:08)
[2018-04-28 06:13] LABS: HEMATOCRIT 31.3 % (35.4-49); HEMOGLOBIN 10.1 GM/dL (11.7-16.9); MCH 27.4 pg (25.7-33.7); MCHC 32.1 g/dl (32.0-35.9); MEAN CELL VOLUME 85.4 fl (80-96); MEAN PLT VOLUME 8.9 fl (7.5-11.1); PLATELET COUNT 191 K/MM3 (134-434); RBC 3.67 M/mm3 (4.00-5.60); RDW 18.3 % (11.9-15.9); WHITE BLOOD COUNT 12.2 K/mm3 (4.0-10.0)
[2018-04-28 06:39] LABS: ANION GAP 14 (8-16); BLOOD UREA NITROGEN 102 mg/dL (7-18); CALCIUM 7.6 mg/dL (8.5-10.1); CHLORIDE 101 mmol/L (98-107); CO2 24 mmol/L (21-32); GLUCOSE,RANDOM 78 mg/dL (74-106); MAGNESIUM 2.1 mg/dL (1.8-2.4); POTASSIUM 4.5 mmol/L (3.5-5.1); SODIUM 139 mmol/L (136-145)
[2018-04-28 06:44] LABS: ALK PHOS 92 U/L (45-117); BILIRUBIN,TOTAL 0.5 mg/dL (0.2-1.0); PHOSPHOROUS 8.4 mg/dL (2.5-4.9); SGOT/AST 22 U/L (15-37); SGPT/ALT 14 U/L (12-78); TOT PROT 5.9 g/dl (6.4-8.2)
[2018-04-28 06:45] LABS: CREATININE 11.7 mg/dL (0.7-1.3)
[2018-04-28] MEDS: HEPARIN NA (PORCINE) 5,000 UNITS/ML 1ML VIAL IVPUSH PRN ×2 (06:51→22:30)
--- NOTE | 2018-04-28 08:06 | PN ---
Physical Exam: SUBJECTIVE: Patient seen and examined. Still has a sore throat with temporary relief with the lozenges. Sitting up feeding himself. Said to have walked to bathroom with assistance. Still feels weak, but had PT evaluation. For dialysis today following catheter insertion. OBJECTIVE: Vital Signs Period Temp Pulse Resp BP Sys/Wyatt Pulse Ox Last 24 Hr 98.2 F-99.6 F 74-92 16-29 123-177/55-78 98-98 Vital Signs Temp 98.7 F 04/28/18 18:00 Pulse 85 04/28/18 20:00 Resp 18 04/28/18 20:00 BP 189/80 04/28/18 20:00 Pulse Ox 94 L 04/28/18 20:04 Intake & Output 04/27/18 04/28/18 04/28/18 23:59 11:59 23:59 Intake Total 518 228 253.5 Output Total 275 100 Balance 243 228 153.5 Weight 58.06 kg 58.196 kg Intake: IV 298 168 103.5 Heparin - 25,000 Unit In 298 168 57.5 Normal Saline - 495 ml @ 800 UNIT/HR 16 mls/hr IV TITR [facility] Rx#:[id number] Heparin - 25,000 Unit In 46 Normal Saline - 495 ml @ 800 UNIT/HR 16 mls/hr IV TITR [facility] Rx#:[id number] IVPB 50 Oral 220 60 100 Output: Urine 275 100 Mcbride 100 Void 175 100 Other: Voiding Method Urinal Urinal Urinal # Unmeasured Voids Void 1 1 Bowel Movement No No No Height 1.78 m Body Mass Index (BMI) 18.3 Weight Measurement Method Built in [facility] Intake & Output 04/25/18 04/26/18 04/27/18 04/28/18 23:59 23:59 23:59 23:59 Intake Total 2257.6 837 760 481.5 Output Total 420 300 525 100 Balance 1837.6 537 235 381.5 Weight 59.4 kg 56.9 kg 58.06 kg 58.196 kg GENERAL: The patient is awake, alert, and fully oriented, in no acute distress. NC-3l ENT: Lip swelling improved, moist mucous membranes. LUNGS: Few bilateral crackles at bases HEART: irregular rate and rhythm, S1, S2 without murmur, rub or gallop. ABDOMEN: Soft, nontender, nondistended, normoactive bowel sounds, EXTREMITIES: 2+ pulses, warm, well-perfused, no edema. NEUROLOGICAL: AAOx3, no facial droop, moves all limbs CBC, BMP 04/28/18 05:30 04/28/18 05:30 Laboratory Results - last 24 hr 04/27/18 04/27/18 04/27/18 07:30 15:30 23:00 WBC RBC Hgb Hct MCV MCH MCHC RDW Plt Count MPV PTT (Actin FS) 47.5 H 36.8 62.8 H D Sodium Potassium Chloride Carbon Dioxide Anion Gap BUN Creatinine Creat Clearance w eGFR Random Glucose Calcium Phosphorus Magnesium Total Bilirubin AST ALT Alkaline Phosphatase Total Protein Albumin Random Vancomycin 04/28/18 04/28/18 04/28/18 05:30 05:30 05:30 WBC 12.2 H RBC 3.67 L Hgb 10.1 L Hct 31.3 L MCV 85.4 MCH 27.4 MCHC 32.1 RDW 18.3 H Plt Count 191 MPV 8.9 PTT (Actin FS) 45.3 H Sodium Potassium Chloride Carbon Dioxide Anion Gap BUN Creatinine Creat Clearance w eGFR Random Glucose Calcium Phosphorus Magnesium Total Bilirubin AST ALT Alkaline Phosphatase Total Protein Albumin Random Vancomycin 15.98 04/28/18 05:30 WBC RBC Hgb Hct MCV MCH MCHC RDW Plt Count MPV PTT (Actin FS) Sodium 139 Potassium 4.5 Chloride 101 Carbon Dioxide 24 Anion Gap 14 BUN 102 H Creatinine 11.7 H* Creat Clearance w eGFR 4.42 Random Glucose 78 D Calcium 7.6 L Phosphorus 8.4 H Magnesium 2.1 Total Bilirubin 0.5 AST 22 D ALT 14 Alkaline Phosphatase 92 Total Protein 5.9 L Albumin 2.0 L Random Vancomycin Active Medications Generic Name Dose Route Start Last Admin Trade Name Freq PRN Reason Stop Dose Admin Acetaminophen 1,000 mg 04/27/18 18:17 Ofirmev Injection - IVPB Q6H PRN FEVER Atorvastatin Calcium 80 mg 04/27/18 22:00 04/27/18 21:04 Lipitor - PO 80 mg HS SHERON Administration Benzocaine/Menthol 1 each 04/27/18 18:17 04/27/18 19:30 Cepacol Lozenge - MM 1 each PRN PRN Administration SORE THROAT Calcium Acetate 1,334 mg 04/28/18 08:00 Phoslo - PO TIDCM [facility] Carvedilol 12.5 mg 04/27/18 14:25 04/27/18 21:04 Coreg - PO 12.5 mg BID SHERON Administration Chlorhexidine Gluconate 1 applic 04/27/18 22:00 04/27/18 21:05 Hibiclens For Decolonization - TP 1 applic HS SHERON Administration Heparin Sodium (Porcine) 1,000 unit 04/27/18 18:17 04/28/18 06:51 Heparin - IVPUSH 1,000 unit PRN PRN Administration Heparin Heparin Sodium (Porcine) 5,000 unit 04/27/18 18:17 Heparin - IVPUSH PRN PRN Heparin Hydralazine HCl 50 mg 04/27/18 14:22 04/28/18 05:22 Apresoline - PO 50 mg TID SHERON Administration Heparin Sodium (Porcine) 25, 500 mls @ 16 mls/hr 04/27/18 18:17 04/28/18 06: 51 000 unit/ Sodium Chloride IV 1,150 unit/hr TITR SHERON 23 mls/hr Titration Protocol 800 UNIT/HR Isosorbide Mononitrate 60 mg 04/28/18 10:00 Imdur - PO DAILY [facility] Mupirocin 1 applic 04/27/18 22:00 04/27/18 21:04 Bactroban Ointment (For Decolonization) - NS 05/02/18 21:59 1 applic BID [facility]ERON Administration Pantoprazole Sodium 40 mg 04/28/18 10:00 Protonix Iv IVPUSH DAILY [facility] Valsartan 40 mg 04/28/18 10:00 Diovan - PO DAILY [facility] Microbiology 04/26/18 17:00 Blood - Peripheral Venous Blood Culture - Preliminary NO GROWTH OBTAINED AFTER 48 HOURS, INCUBATION TO CONTINUE FOR 3 DAYS. 04/26/18 16:40 Blood - Peripheral Venous Blood Culture - Preliminary NO GROWTH OBTAINED AFTER 48 HOURS, INCUBATION TO CONTINUE FOR 3 DAYS. 04/26/18 16:30 Sputum - Expectorated Gram Stain - Final 04/26/18 16:30 Sputum - Expectorated Sputum Culture - Preliminary Pending Organism 04/26/18 16:00 Urine - Urine Mcbride Urine Culture - Final NO GROWTH OBTAINED 04/25/18 10:24 Blood - Peripheral Venous Blood Culture - Final Streptococcus Constellatus 04/25/18 10:40 Blood - Peripheral Venous Blood Culture - Final Streptococcus Constellatus Current Medications Acetaminophen (Ofirmev Injection -) 1,000 mg IVPB Q6H PRN PRN Reason: FEVER Atorvastatin Calcium (Lipitor -) 80 mg PO HS [facility] Last Admin: 04/27/18 21:04 Dose: 80 mg Benzocaine/Menthol (Cepacol Lozenge -) 1 each MM PRN PRN PRN Reason: SORE THROAT Last Admin: 04/27/18 19:30 Dose: 1 each Calcium Acetate (Phoslo -) 1,334 mg PO TIDCM [facility] Last Admin: 04/28/18 17:21 Dose: 1,334 mg Carvedilol (Coreg -) 12.5 mg PO BID [facility] Last Admin: 04/28/18 09:25 Dose: 12.5 mg Chlorhexidine Gluconate (Hibiclens For Decolonization -) 1 applic TP HS [facility] Last Admin: 04/27/18 21:05 Dose: 1 applic Heparin Sodium (Porcine) (Heparin -) 1,000 unit IVPUSH PRN PRN PRN Reason: Heparin Last Admin: 04/28/18 06:51 Dose: 1,000 unit Heparin Sodium (Porcine) (Heparin -) 5,000 unit IVPUSH PRN PRN PRN Reason: Heparin Hydralazine HCl (Apresoline -) 50 mg PO TID [facility] Last Admin: 04/28/18 14:24 Dose: Not Given Heparin Sodium (Porcine) 25, (000 unit/ Sodium Chloride) 500 mls @ 16 mls/hr IV TITR SHERON; Protocol Last Admin: 04/28/18 18:17 Dose: 1,150 unit/hr, 23 mls/hr Cefepime HCl 0.5 gm/ Dextrose 100 mls @ 200 mls/hr IVPB DAILY [facility]; Protocol Last Admin: 04/28/18 14:42 Dose: 200 mls/hr Isosorbide Mononitrate (Imdur -) 60 mg PO DAILY [facility] Last Admin: 04/28/18 17:15 Dose: 60 mg Mupirocin (Bactroban Ointment (For Decolonization) -) 1 applic NS BID [facility] Stop: 05/02/18 21:59 Last Admin: 04/28/18 09:25 Dose: 1 applic Pantoprazole Sodium (Protonix Iv) 40 mg IVPUSH DAILY [facility] Last Admin: 04/28/18 09:24 Dose: 40 mg Valsartan (Diovan -) 40 mg PO DAILY [facility] Last Admin: 04/28/18 17:15 Dose: 40 mg Ambulatory Orders Amlodipine Besylate [Norvasc -] 10 mg PO DAILY 04/22/18 Aspirin Coated [Ecotrin -] 81 mg PO DAILY 04/22/18 Carvedilol [Coreg -] 12.5 mg PO BID 04/22/18 Donepezil HCl [Aricept -] 10 mg PO DAILY 04/22/18 Hydralazine HCl 50 mg PO TID 04/22/18 Tamsulosin HCl [Flomax] 0.4 mg PO DAILY 04/22/18 Atorvastatin Calcium 80 mg PO DAILY 04/23/18 Calcium Acetate [Phoslo -] 667 mg PO TIDCM 04/23/18 Isosorbide Mononitrate [Isosorbide Mononitrate ER] 60 mg PO DAILY 04/23/18 Sodium Bicarbonate - 650 mg PO TID 04/23/[address]: negative for intracranial bleed -ECHO 04/23/18: moderate to severe L ventricular systolic dysfunction Courtesy of Dr Mujica-per records from [facility]: January 17, 2015 R&LH @ [facility]: 3 vessel CAD with CMO RVA and OM2, elevated right and left heart pressures January 19, 2015 Echo: Mod LVH moderate decreased LVEF 40% with AK inferior and inferoseptal, mild AR, MR, mild LAE January 22, 2015 Lexiscan Myoview: Dense scar inferior wall, large lateral ischemia, inferolateral AK, LVEF 30$ January 21, 2015 Rest and redistribution Thallium: Scar involving entire inferior wall, basal to mid inferolateral, basal inferoseptal, and apex, no significant hibernating myocardiaum, dilated LV with severely decreased LVEF 27% April 23, 2018 Echo: Moderately dilated with moderate decreased LV fxn, mild decreased RV fxn, mild AR, mild LAE ASSESSMENT/PLAN: 62 yo M h/o CKD stage 5 on HD, Acute on chronic diastolic/systolic failure, paroxysmal afib, CAD s/p OR admitted to ICU for acute metabolic encephalopathy secondary to hypertensive emergency and uremia, intubated, dialyzed, found to be bacteremic now on AB Sepsis Resolved, No more fevers repeat blood cultures negative, 48hrs Trialysis catheter for HD today Afib Previously diagnosed in 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 recs -Phoslo 2tabs before meals Hypertensive encephalopathy/CAD s/p OR -Pt presented with SBP of 200 -Pt was on ASA -Continue carvedilol 12.5 bid, hydralazine 50 tid, resume Imdur 60 qd (BiDil ) and Lipitor 80 qd, change norvasc to Diovan, eventual entresto as outpatient Acute hypoxic respiratory failure, Pt extubated Maintained on NC-3L to maintain sats Pulmonary edema- resolved ODILIA on CKD with uremic encephalopathy -Now stage 5 CKD on HD - unknown Cr baseline, h/o dialysis, been f/u as outpatient with switch repairer at [facility] - HD as needed Elevated troponin - Likely demand ischemia, or related to poor kidney function with poor excretion - peaked-0.45>>0.39 Acute on chronic diastolic/systolic failure Ischemic failure secondary to OR Pt had pulmonary edema in setting of hypertensive emergency with background fluid overload from CKD Not currently in exacerbation Cont hydralazine 50 tid, and carvedilol hold Imdur 60 qd (BiDil) prior to dialysis today eventual entresto as outpatient -to f/u with Dr. Jeannette Kaiser at [facility] upon d/c Dementia - aricept on hold BPH - flomax on Hold FEN - Hold IVF dialysis pt - Replete lytes PRN, or dialyze as needed Dispo: Tele transfer Visit type - Emergency Visit Emergency Visit: Yes ED Registration Date: 04/22/18 Care time: The patient presented to the Emergency Department on the above date and was hospitalized for further evaluation of their emergent condition. - New Patient This patient is new to me today: No - Critical Care Critical Care patient: No - Discharge Referral Referred to [facility] Med P.C.: No
[2018-04-28] MEDS: CALCIUM ACETATE 667 MG CAPSULE (FP) PO SCH ×3 (08:50→17:21)
[2018-04-28] MEDS: PANTOPRAZOLE SODIUM 40 MG VIAL IVPUSH SCH (09:24)
[2018-04-28] MEDS: MUPIROCIN 2% TOPICAL OINTMENT FOR DECOLONIZATION NS SCH ×2 (09:25→21:08)
[2018-04-28] MEDS: CARVEDILOL 12.5 MG TABLET (FP) PO SCH ×2 (09:25→21:08)
--- NOTE | 2018-04-28 09:36 | PN ---
Progress Note, Physician Chief Complaint: Events noted Awake and alert, but difficulty speaking because of throat discomfort History of Present Illness: Patient was seen and examined. Awake. Chart was reviewed Post HD. BP stable Denies SOB this AM - Current Medication List Current Medications: Active Medications Acetaminophen (Ofirmev Injection -) 1,000 mg IVPB Q6H PRN PRN Reason: FEVER Atorvastatin Calcium (Lipitor -) 80 mg PO [facility] Last Admin: 04/27/18 21:04 Dose: 80 mg Benzocaine/Menthol (Cepacol Lozenge -) 1 each MM PRN PRN PRN Reason: SORE THROAT Last Admin: 04/27/18 19:30 Dose: 1 each Calcium Acetate (Phoslo -) 1,334 mg PO TIDCM [facility] Last Admin: 04/28/18 08:50 Dose: 1,334 mg Carvedilol (Coreg -) 12.5 mg PO BID [facility] Last Admin: 04/28/18 09:25 Dose: 12.5 mg Chlorhexidine Gluconate (Hibiclens For Decolonization -) 1 applic TP HS [facility] Last Admin: 04/27/18 21:05 Dose: 1 applic Heparin Sodium (Porcine) (Heparin -) 1,000 unit IVPUSH PRN PRN PRN Reason: Heparin Last Admin: 04/28/18 06:51 Dose: 1,000 unit Heparin Sodium (Porcine) (Heparin -) 5,000 unit IVPUSH PRN PRN PRN Reason: Heparin Hydralazine HCl (Apresoline -) 50 mg PO TID [facility] Last Admin: 04/28/18 05:22 Dose: 50 mg Heparin Sodium (Porcine) 25, (000 unit/ Sodium Chloride) 500 mls @ 16 mls/hr IV TITR [facility]; Protocol Last Titration: 04/28/18 06:51 Dose: 1,150 unit/hr, 23 mls/hr Isosorbide Mononitrate (Imdur -) 60 mg PO DAILY [facility] Mupirocin (Bactroban Ointment (For Decolonization) -) 1 applic NS BID [facility] Stop: 05/02/18 21:59 Last Admin: 04/28/18 09:25 Dose: 1 applic Pantoprazole Sodium (Protonix Iv) 40 mg IVPUSH DAILY [facility] Last Admin: 04/28/18 09:24 Dose: 40 mg Valsartan (Diovan -) 40 mg PO DAILY [facility] - Objective Vital Signs: Vital Signs Temperature 98.8 F 04/28/18 08:00 Pulse Rate 97 H 04/28/18 08:00 Respiratory Rate 24 04/28/18 08:00 Blood Pressure 145/61 04/28/18 08:00 O2 Sat by Pulse Oximetry (%) 94 L 04/28/18 08:00 Neck: Yes: Supple Cardiovascular: Yes: Regular Rate and Rhythm, S1, S2 Respiratory: Yes: Diminished Gastrointestinal: Yes: Normal Bowel Sounds, Soft. No: Tenderness Edema: No Labs: CBC, BMP 04/28/18 05:30 04/28/18 05:30 INR, PTT INR 1.27 (0.82-1.09) H 04/26/18 23:30 Problem List - Problems (1) Acute on chronic systolic (congestive) heart failure Code(s): I50.23 - ACUTE ON CHRONIC SYSTOLIC (CONGESTIVE) HEART FAILURE (2) End stage renal disease Code(s): N18.6 - END STAGE RENAL DISEASE (3) Hyperlipidemia Code(s): E78.5 - HYPERLIPIDEMIA, UNSPECIFIED Qualifiers: Hyperlipidemia type: pure hypercholesterolemia Qualified Code(s): E78.00 - Pure hypercholesterolemia, unspecified; E78.0 - Pure hypercholesterolemia (4) Hypertensive cardiomyopathy Code(s): I11.9 - HYPERTENSIVE HEART DISEASE WITHOUT HEART FAILURE; I43 - CARDIOMYOPATHY IN DISEASES CLASSIFIED ELSEWHERE Qualifiers: Heart failure presence: with heart failure Qualified Code(s): I11.0 - Hypertensive heart disease with heart failure; I43 - Cardiomyopathy in diseases classified elsewhere (5) Ischemic cardiomyopathy Code(s): I25.5 - ISCHEMIC CARDIOMYOPATHY (6) CAD (coronary artery disease) Code(s): I25.10 - ATHSCL HEART DISEASE OF [place] CORONARY ARTERY W/O ANG PCTRS Qualifiers: Coronary Disease-Associated Artery/Lesion type: [place] artery [place] vs. transplanted heart: [place] heart Associated angina: without angina Qualified Code(s): I25.10 - Atherosclerotic heart disease of [place] coronary artery without angina pectoris Assessment/Plan 1. Acute on chronic diastolic/systolic failure and pulmonary edema 2. Hypertensive urgency 3. Post acute hypoxic respiratory failure 4. CAD s/p [place], demand ischemic injury 5. Ischemic cardiomyopathy 6. Acute on Chronic Renal Failure requiring HD 7. Paroxysmal atrial fibrillation currently in sinus rhythm 8. Resolved Altered Mental Status r/o Hypertensive vs Uremic Encephalopathy PLAN: 1. Volume removal via UF/HD at the discretion of renal service and as needed 2. Continue Carvedilol 12.5 bid, Hydralazine 50 tid and Imdur 60 qd. Continue Lipitor 80 qd and Diovan 40 mg QD. Eventually Entresto can be used as outpatient 3. Continue Heparin gtt for now and resume Coumadin per INR when ready 4. Patient is to see Dr. Jeannette Kaiser at [facility] upon discharge Further plans are to follow Johnathan Claros MD
--- NOTE | 2018-04-28 09:41 | PN ---
Progress Note (short form) - Note Progress Note: PULMONARY/CCM Pt seen and examined in the ICU. Remains extubated. No fevers recorded. Denies shortness of breath or chest pain. Vital Signs Period Temp Pulse Resp BP Sys/Wyatt Pulse Ox Last 24 Hr 98.2 F-99.6 F 74-97 16-29 123-177/55-78 94-98 Intake & Output 04/25/18 04/26/18 04/27/18 04/28/18 23:59 23:59 23:59 23:59 Intake Total 2257.6 837 760 228 Output Total 420 300 525 Balance 1837.6 537 235 228 Weight 59.4 kg 56.9 kg 58.06 kg 58.196 kg Gen: NAD at rest Heart: RRR Lung: decreased breath sounds at the bases Abd: soft, nontender Ext: no edema CBC, BMP 04/28/18 05:30 04/28/18 05:30 Active Medications Acetaminophen (Ofirmev Injection -) 1,000 mg IVPB Q6H PRN PRN Reason: FEVER Atorvastatin Calcium (Lipitor -) 80 mg PO HS [facility] Last Admin: 04/27/18 21:04 Dose: 80 mg Benzocaine/Menthol (Cepacol Lozenge -) 1 each MM PRN PRN PRN Reason: SORE THROAT Last Admin: 04/27/18 19:30 Dose: 1 each Calcium Acetate (Phoslo -) 1,334 mg PO TIDCM [facility] Last Admin: 04/28/18 08:50 Dose: 1,334 mg Carvedilol (Coreg -) 12.5 mg PO BID [facility] Last Admin: 04/28/18 09:25 Dose: 12.5 mg Chlorhexidine Gluconate (Hibiclens For Decolonization -) 1 applic TP HS [facility] Last Admin: 04/27/18 21:05 Dose: 1 applic Heparin Sodium (Porcine) (Heparin -) 1,000 unit IVPUSH PRN PRN PRN Reason: Heparin Last Admin: 04/28/18 06:51 Dose: 1,000 unit Heparin Sodium (Porcine) (Heparin -) 5,000 unit IVPUSH PRN PRN PRN Reason: Heparin Hydralazine HCl (Apresoline -) 50 mg PO TID [facility] Last Admin: 04/28/18 05:22 Dose: 50 mg Heparin Sodium (Porcine) 25, (000 unit/ Sodium Chloride) 500 mls @ 16 mls/hr IV TITR [facility]ERON; Protocol Last Titration: 04/28/18 06:51 Dose: 1,150 unit/hr, 23 mls/hr Isosorbide Mononitrate (Imdur -) 60 mg PO DAILY [facility] Mupirocin (Bactroban Ointment (For Decolonization) -) 1 applic NS BID [facility] Stop: 05/02/18 21:59 Last Admin: 04/28/18 09:25 Dose: 1 applic Pantoprazole Sodium (Protonix Iv) 40 mg IVPUSH DAILY [facility] Last Admin: 04/28/18 09:24 Dose: 40 mg Valsartan (Diovan -) 40 mg PO DAILY [facility] A/P Altered Mental Status resolved s/p Acute Respiratory Failure Hypertensive Urgency Hypertensive vs Uremic Encephalopathy improved Acute on Chronic Renal Failure requiring HD +Troponins likely demand ischemia - continue antibiotics - f/u pending cultures - will need HD catheter placement - HD per renal - monitor urine output, creatinine - taper FiO2 to keep SpO2 >90% - BP control - PO as tolerated - DVT/GI prophylaxis - can monitor on telemetry critical care time spent in reviewing chart, evaluating patient and formulating plan 35 min
[2018-04-28] MEDS ORDERED: PT OWN MED DRAWER 7, Y5N ONE ×2 (10:06→16:13)
--- NOTE | 2018-04-28 11:41 | PN ---
Teaching Attending Note Name of Resident: Geni Sorensen ATTENDING PHYSICIAN STATEMENT I saw and evaluated the patient. I reviewed the resident's note and discussed the case with the resident. I agree with the resident's findings and plan as documented with exceptions below. SUBJECTIVE: Patient seen and examined. no dyspnea, abdominal pain. Throat symptoms improved. OBJECTIVE: Vital Signs Period Temp Pulse Resp BP Sys/Wyatt Pulse Ox Last 24 Hr 98.2 F-99.6 F 74-97 17-29 123-177/55-78 94-98 Intake & Output 04/25/18 04/26/18 04/27/18 04/28/18 23:59 23:59 23:59 23:59 Intake Total 2257.6 837 760 228 Output Total 420 300 525 Balance 1837.6 537 235 228 Weight 130 lb 15.273 oz 125 lb 7.088 oz 128 lb 128 lb 4.8 oz General: sitting in bed in no acute distress Chest: few basilar rales, good air entry Abdomen:Soft, NT Extremities: no edema Home Medications Medication Instructions Recorded Amlodipine Besylate [Norvasc -] 10 mg PO DAILY 04/22/18 Aspirin Coated [Ecotrin -] 81 mg PO DAILY 04/22/18 Carvedilol [Coreg -] 12.5 mg PO BID 04/22/18 Donepezil HCl [Aricept -] 10 mg PO DAILY 04/22/18 Hydralazine HCl 50 mg PO TID 04/22/18 Tamsulosin HCl [Flomax] 0.4 mg PO DAILY 04/22/18 Atorvastatin Calcium 80 mg PO DAILY 04/23/18 Calcium Acetate [Phoslo -] 667 mg PO TIDCM 04/23/18 Isosorbide Mononitrate [Isosorbide 60 mg PO DAILY 04/23/18 Mononitrate ER] Sodium Bicarbonate - 650 mg PO TID 04/23/18 Active Medications Acetaminophen (Ofirmev Injection -) 1,000 mg IVPB Q6H PRN PRN Reason: FEVER Atorvastatin Calcium (Lipitor -) 80 mg PO HS [facility] Last Admin: 04/27/18 21:04 Dose: 80 mg Benzocaine/Menthol (Cepacol Lozenge -) 1 each MM PRN PRN PRN Reason: SORE THROAT Last Admin: 04/27/18 19:30 Dose: 1 each Calcium Acetate (Phoslo -) 1,334 mg PO TIDCM [facility] Last Admin: 04/28/18 08:50 Dose: 1,334 mg Carvedilol (Coreg -) 12.5 mg PO BID [facility] Last Admin: 04/28/18 09:25 Dose: 12.5 mg Chlorhexidine Gluconate (Hibiclens For Decolonization -) 1 applic TP HS [facility] Last Admin: 04/27/18 21:05 Dose: 1 applic Heparin Sodium (Porcine) (Heparin -) 1,000 unit IVPUSH PRN PRN PRN Reason: Heparin Last Admin: 04/28/18 06:51 Dose: 1,000 unit Heparin Sodium (Porcine) (Heparin -) 5,000 unit IVPUSH PRN PRN PRN Reason: Heparin Hydralazine HCl (Apresoline -) 50 mg PO TID [facility] Last Admin: 04/28/18 05:22 Dose: 50 mg Heparin Sodium (Porcine) 25, (000 unit/ Sodium Chloride) 500 mls @ 16 mls/hr IV TITR [facility]; Protocol Last Titration: 04/28/18 06:51 Dose: 1,150 unit/hr, 23 mls/hr Isosorbide Mononitrate (Imdur -) 60 mg PO DAILY [facility] Mupirocin (Bactroban Ointment (For Decolonization) -) 1 applic NS BID [facility] Stop: 05/02/18 21:59 Last Admin: 04/28/18 09:25 Dose: 1 applic Pantoprazole Sodium (Protonix Iv) 40 mg IVPUSH DAILY [facility] Last Admin: 04/28/18 09:24 Dose: 40 mg Valsartan (Diovan -) 40 mg PO DAILY [facility] Laboratory Results - last 24 hr 04/27/18 04/27/18 04/28/18 15:30 23:00 05:30 WBC RBC Hgb Hct MCV MCH MCHC RDW Plt Count MPV PTT (Actin FS) 36.8 62.8 H D Sodium Potassium Chloride Carbon Dioxide Anion Gap BUN Creatinine Creat Clearance w eGFR Random Glucose Calcium Phosphorus Magnesium Total Bilirubin AST ALT Alkaline Phosphatase Total Protein Albumin Random Vancomycin 15.98 04/28/18 04/28/18 04/28/18 05:30 05:30 05:30 WBC 12.2 H RBC 3.67 L Hgb 10.1 L Hct 31.3 L MCV 85.4 MCH 27.4 MCHC 32.1 RDW 18.3 H Plt Count 191 MPV 8.9 PTT (Actin FS) 45.3 H Sodium 139 Potassium 4.5 Chloride 101 Carbon Dioxide 24 Anion Gap 14 BUN 102 H Creatinine 11.7 H* Creat Clearance w eGFR 4.42 Random Glucose 78 D Calcium 7.6 L Phosphorus 8.4 H Magnesium 2.1 Total Bilirubin 0.5 AST 22 D ALT 14 Alkaline Phosphatase 92 Total Protein 5.9 L Albumin 2.0 L Random Vancomycin Microbiology 04/25/18 10:24 Blood - Peripheral Venous Blood Culture - Final Streptococcus Constellatus 04/25/18 10:40 Blood - Peripheral Venous Blood Culture - Final Streptococcus Constellatus 04/26/18 17:00 Blood - Peripheral Venous Blood Culture - Preliminary NO GROWTH OBTAINED AFTER 24 HOURS, INCUBATION TO CONTINUE FOR 4 DAYS. 04/26/18 16:40 Blood - Peripheral Venous Blood Culture - Preliminary NO GROWTH OBTAINED AFTER 24 HOURS, INCUBATION TO CONTINUE FOR 4 DAYS. 04/26/18 16:30 Sputum - Expectorated Gram Stain - Final 04/25/18 11:10 Sputum - Endotrachea Suction/Ventilator Gram Stain - Final 04/25/18 11:10 Sputum - Endotrachea Suction/Ventilator Sputum Culture - Final Klebsiella Pneumoniae Mr S Aureus 04/25/18 10:10 Urine - Urine Mcbride Urine Culture - Final NO GROWTH OBTAINED 04/22/18 18:10 Urine - Urine Mcbride Urine Culture - Final NO GROWTH OBTAINED ASSESSMENT AND PLAN: 62yo M with PMH CKD (has refused HD in the past), and CAD presenting with progressively worsening shortness of breath and altered mental status. in the ER was found to have SBP 240. code larkin was activated in the ER -Acute toxic metabolic encephalopathy, likely uremic + hypertensive -Acute hypoxic respiratory failure, suspect fluid overload from ESRD +/- ARDS -Hypertensive emergency -Acute on CKD stage V -Elevated troponin, suspect demand ischemia from above -Paroxysmal Atrial fibrillation -Sepsis with GPC bacteremia, ?femoral line related. -Normocytic anemia, suspect from CKD/dilutional -Dementia Plan: ID input noted, s/p Cefepime/vanco with HD, blood cx noted. Vanco levels noted. HD catheter removed. repeat Blood cx neg so far. Extubated, doing well,speech/swallow eval noted, resume diet. s/p sudhir 04/22 with emergent HD, removed 04/25. Off labetalol drip. BP improved on home oral anti-hypertensives. Discussed with Dr. Oleary, plan for HD cath today and HD. discussed with Dr. Greene. 2D echo results reviewed. Cardiology consulted, input appreciated. Continue diovan/coreg/statin/hydralazine/imdur. Trend h/h, hold aricept. DVTPPx hold heparin drip for HD cath placement. Dispo pending clinical improvement. For transfer to telemetry after HD today. The care of this patient involved high complexity decision making to prevent further life threatening deterioration of the patient's condition and/or to evaluate & treat vital organ system(s) failure or risk of failure. Critical care time spent in reviewing chart, evaluating patient and formulating plan - 40 minutes.
[2018-04-28] MEDS ORDERED: MIDAZOLAM HCL 5 MG/1 ML Single Dose Vial ONE (11:51)
[2018-04-28] MEDS ORDERED: MIDAZOLAM HCL 2 MG/2 ML SINGLE DOSE VIAL IVPUSH ONE (12:41)
--- NOTE | 2018-04-28 13:58 | PROC ---
<Faustina Mcdaniel - Last Filed: 04/28/18 13:57> Central Line Insertion Indication: Poor Venous Access, Other (HD) Risks and Benefits Explained: Yes Consent on Chart: Yes Central Line: Triple Lumen Catheter Anesthesia: 1% Lidocaine Sterile Technique: Yes Ultrasound Guided Assistance: Yes Position: Right Internal Jugular Post Insertion: Yes: Chest X-Ray Ordered Sterile Dressing Applied: Yes <Partha Greene MD - Last Filed: 04/28/18 15:24> Procedure Note Procedure: I supervised and was present during the entire procedure. Partha Greene MD
[2018-04-28] MEDS: CEFEPIME 0.5 GM in DEXTROSE 5%-WATER - 100 ML IVPB SCH (14:42)
[2018-04-28] MEDS ORDERED: MIDAZOLAM HCL 5 MG/1 ML Single Dose Vial IVPUSH ONE (15:19)
[2018-04-28] MEDS ORDERED: EPOETIN ALFA 3,000 UNIT, EPOETIN ALFA 2,000 UNIT IVPUSH ONE (16:00)
[2018-04-28] MEDS: VALSARTAN 40 MG TABLET (FP) PO SCH (17:15)
[2018-04-28] MEDS: ISOSORBIDE MONONITRATE 60 MG TAB.SR.24H (FP) PO SCH (17:15)
[2018-04-28] MEDS: HEPARIN - 25,000 UNIT in SODIUM CHLORIDE 495 ML IV SCH (18:17)
--- NOTE | 2018-04-28 19:02 | PN ---
Progress Note, Physician History of Present Illness: Pt seen and examined. Chart reviewed, results noted. Pt had catheter placed this morning, currently receiving HD. Afebrile, alert, and responsive. - Current Medication List Current Medications: Active Medications Acetaminophen (Ofirmev Injection -) 1,000 mg IVPB Q6H PRN PRN Reason: FEVER Atorvastatin Calcium (Lipitor -) 80 mg PO HS [facility] Last Admin: 04/27/18 21:04 Dose: 80 mg Benzocaine/Menthol (Cepacol Lozenge -) 1 each MM PRN PRN PRN Reason: SORE THROAT Last Admin: 04/27/18 19:30 Dose: 1 each Calcium Acetate (Phoslo -) 1,334 mg PO TIDCM [facility] Last Admin: 04/28/18 17:21 Dose: 1,334 mg Carvedilol (Coreg -) 12.5 mg PO BID [facility] Last Admin: 04/28/18 09:25 Dose: 12.5 mg Chlorhexidine Gluconate (Hibiclens For Decolonization -) 1 applic TP HS [facility] Last Admin: 04/27/18 21:05 Dose: 1 applic Heparin Sodium (Porcine) (Heparin -) 1,000 unit IVPUSH PRN PRN PRN Reason: Heparin Last Admin: 04/28/18 06:51 Dose: 1,000 unit Heparin Sodium (Porcine) (Heparin -) 5,000 unit IVPUSH PRN PRN PRN Reason: Heparin Hydralazine HCl (Apresoline -) 50 mg PO TID [facility] Last Admin: 04/28/18 14:24 Dose: Not Given Heparin Sodium (Porcine) 25, (000 unit/ Sodium Chloride) 500 mls @ 16 mls/hr IV TITR [facility]; Protocol Last Admin: 04/28/18 18:17 Dose: 1,150 unit/hr, 23 mls/hr Cefepime HCl 0.5 gm/ Dextrose 100 mls @ 200 mls/hr IVPB DAILY [facility]; Protocol Last Admin: 04/28/18 14:42 Dose: 200 mls/hr Isosorbide Mononitrate (Imdur -) 60 mg PO DAILY [facility] Last Admin: 04/28/18 17:15 Dose: 60 mg Mupirocin (Bactroban Ointment (For Decolonization) -) 1 applic NS BID [facility] Stop: 05/02/18 21:59 Last Admin: 04/28/18 09:25 Dose: 1 applic Pantoprazole Sodium (Protonix Iv) 40 mg IVPUSH DAILY [facility] Last Admin: 04/28/18 09:24 Dose: 40 mg Valsartan (Diovan -) 40 mg PO DAILY [facility] Last Admin: 04/28/18 17:15 Dose: 40 mg - Objective Vital Signs: Vital Signs Temperature 98.7 F 04/28/18 18:00 Pulse Rate 81 04/28/18 18:00 Respiratory Rate 18 04/28/18 18:00 Blood Pressure 168/86 04/28/18 18:00 O2 Sat by Pulse Oximetry (%) 94 L 04/28/18 08:00 Constitutional: Yes: No Distress, Calm Cardiovascular: Yes: Regular Rate and Rhythm Respiratory: Yes: Diminished (bibasilar) Gastrointestinal: Yes: Normal Bowel Sounds, Soft Integumentary: Yes: WNL Neurological: Yes: Alert Labs: CBC, BMP 04/28/18 05:30 04/28/18 05:30 INR, PTT INR 1.27 (0.82-1.09) H 04/26/18 23:30 Microbiology 04/26/18 17:00 Blood - Peripheral Venous Blood Culture - Preliminary NO GROWTH OBTAINED AFTER 48 HOURS, INCUBATION TO CONTINUE FOR 3 DAYS. 04/26/18 16:40 Blood - Peripheral Venous Blood Culture - Preliminary NO GROWTH OBTAINED AFTER 48 HOURS, INCUBATION TO CONTINUE FOR 3 DAYS. 04/26/18 16:30 Sputum - Expectorated Gram Stain - Final 04/26/18 16:30 Sputum - Expectorated Sputum Culture - Preliminary Pending Organism 04/26/18 16:00 Urine - Urine Mcbride Urine Culture - Final NO GROWTH OBTAINED 04/25/18 10:24 Blood - Peripheral Venous Blood Culture - Final Streptococcus Constellatus 04/25/18 10:40 Blood - Peripheral Venous Blood Culture - Final Streptococcus Constellatus 04/25/18 11:10 Sputum - Endotrachea Suction/Ventilator Gram Stain - Final 04/25/18 11:10 Sputum - Endotrachea Suction/Ventilator Sputum Culture - Final Klebsiella Pneumoniae Mr S Aureus 04/25/18 10:10 Urine - Urine Mcbride Urine Culture - Final NO GROWTH OBTAINED 04/22/18 18:10 Urine - Urine Mcbride Urine Culture - Final NO GROWTH OBTAINED Problem List - Problems (1) Acute on chronic systolic (congestive) heart failure Code(s): I50.23 - ACUTE ON CHRONIC SYSTOLIC (CONGESTIVE) HEART FAILURE (2) CAD (coronary artery disease) Code(s): I25.10 - ATHSCL HEART DISEASE OF [place] CORONARY ARTERY W/O ANG PCTRS Qualifiers: Coronary Disease-Associated Artery/Lesion type: [place] artery [place] vs. transplanted heart: [place] heart Associated angina: without angina Qualified Code(s): I25.10 - Atherosclerotic heart disease of [place] coronary artery without angina pectoris (3) End stage renal disease Code(s): N18.6 - END STAGE RENAL DISEASE (4) Hyperlipidemia Code(s): E78.5 - HYPERLIPIDEMIA, UNSPECIFIED Qualifiers: Hyperlipidemia type: pure hypercholesterolemia Qualified Code(s): E78.00 - Pure hypercholesterolemia, unspecified; E78.0 - Pure hypercholesterolemia (5) Hypertensive cardiomyopathy Code(s): I11.9 - HYPERTENSIVE HEART DISEASE WITHOUT HEART FAILURE; I43 - CARDIOMYOPATHY IN DISEASES CLASSIFIED ELSEWHERE Qualifiers: Heart failure presence: with heart failure Qualified Code(s): I11.0 - Hypertensive heart disease with heart failure; I43 - Cardiomyopathy in diseases classified elsewhere (6) Ischemic cardiomyopathy Code(s): I25.5 - ISCHEMIC CARDIOMYOPATHY (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 male admitted with SOB/Acute respiratory failure, Pulmonary congestion, Fever, with Femoral catheter in place sepsis PNA Streptococcal bacteremia fever Renal Failure - now on HD - cont. Cefepime, Vancomycin based on levels - Vancomycin level noted, one dose post HD today - cultures reviewed - latest blood cultures negative -continue monitor wbc/temperatures rest as per the icu
[2018-04-28] MEDS ORDERED: VANCOMYCIN 1 GM PREMIX - 1 GM/200 ML BAG IVPB ONE (19:15)
[2018-04-28] MEDS: ATORVASTATIN CA 80 MG TABLET (FP) PO SCH (21:08)
[2018-04-28] MEDS: CHLORHEXIDINE GLUCONATE 4% CLEANSER FOR DECOLONIZATION TP SCH (21:09)
[2018-04-28] MEDS: BENZOCAINE/MENTH/CETYLPYRD CL 1 EACH LOZENGE MM PRN (21:09)
[2018-04-29] MEDS: ACETAMINOPHEN 1000 MG/100 ML VIAL (NON FORMULARY) IVPB PRN ×2 (02:51→11:08)
[2018-04-29] MEDS: hydrALAZINE HCL 50 MG TABLET (FP) PO SCH ×3 (05:55→21:07)
[2018-04-29 06:44] LABS: BASO % 0.8 % (0-2.0); EOS % 4.1 % (0-4.5); HEMATOCRIT 30.7 % (35.4-49); HEMOGLOBIN 10.1 GM/dL (11.7-16.9); LYMPH % 9.1 % (8-40); MCH 28.1 pg (25.7-33.7); MCHC 32.8 g/dl (32.0-35.9); MEAN CELL VOLUME 85.6 fl (80-96); MEAN PLT VOLUME 9.4 fl (7.5-11.1); PLATELET COUNT 213 K/MM3 (134-434); RBC 3.58 M/mm3 (4.00-5.60); RDW 18.1 % (11.9-15.9); WHITE BLOOD COUNT 9.6 K/mm3 (4.0-10.0)
[2018-04-29 07:35] LABS: CHLORIDE 100 mmol/L (98-107); SODIUM 141 mmol/L (136-145)
[2018-04-29 07:45] LABS: ALK PHOS 90 U/L (45-117); ANION GAP 9 (8-16); BILIRUBIN,TOTAL 0.4 mg/dL (0.2-1.0); BLOOD UREA NITROGEN 47 mg/dL (7-18); CO2 32 mmol/L (21-32); CREATININE 7.3 mg/dL (0.7-1.3); GLUCOSE,RANDOM 97 mg/dL (74-106); PHOSPHOROUS 5.2 mg/dL (2.5-4.9); SGOT/AST 22 U/L (15-37); SGPT/ALT 18 U/L (12-78); TOT PROT 5.9 g/dl (6.4-8.2)
[2018-04-29] MEDS: HEPARIN - 25,000 UNIT in SODIUM CHLORIDE 495 ML IV SCH ×2 (08:18→18:42)
[2018-04-29] MEDS: HEPARIN NA (PORCINE) 5,000 UNITS/ML 1ML VIAL IVPUSH PRN (08:20)
[2018-04-29] MEDS: CALCIUM ACETATE 667 MG CAPSULE (FP) PO SCH ×3 (08:38→18:30)
--- NOTE | 2018-04-29 09:08 | PN ---
Progress Note (short form) - Note Progress Note: PULMONARY/CCM Pt seen and examined in the ICU. HD catheter placed yesterday and tolerated HD. No fevers recorded. Denies shortness of breath or chest pain. c/o left knee pain. Vital Signs Period Temp Pulse Resp BP Sys/Wyatt Pulse Ox Last 24 Hr 98.0 F-100 F 72-92 16-24 129-189/62-86 94-94 Intake & Output 04/26/18 04/27/18 04/28/18 04/29/18 23:59 23:59 23:59 23:59 Intake Total 369 137 8750.5 375 Output Total 300 525 300 Balance 537 235 796.5 375 Weight 56.9 kg 58.06 kg 58.196 kg 57.294 kg Gen: NAD at rest Heart: RRR Lung: decreased breath sounds at the bases Abd: soft, nontender Ext: no edema, no swelling left knee CBC, BMP 04/29/18 05:30 04/29/18 05:30 Active Medications Acetaminophen (Ofirmev Injection -) 1,000 mg IVPB Q6H PRN PRN Reason: FEVER Last Admin: 04/29/18 02:51 Dose: 1,000 mg Atorvastatin Calcium (Lipitor -) 80 mg PO HS [facility] Last Admin: 04/28/18 21:08 Dose: 80 mg Benzocaine/Menthol (Cepacol Lozenge -) 1 each MM PRN PRN PRN Reason: SORE THROAT Last Admin: 04/28/18 21:09 Dose: 1 each Calcium Acetate (Phoslo -) 1,334 mg PO TIDCM [facility] Last Admin: 04/29/18 08:38 Dose: 1,334 mg Carvedilol (Coreg -) 12.5 mg PO BID [facility] Last Admin: 04/28/18 21:08 Dose: 12.5 mg Chlorhexidine Gluconate (Hibiclens For Decolonization -) 1 applic TP HS [facility] Last Admin: 04/28/18 21:09 Dose: 1 applic Heparin Sodium (Porcine) (Heparin -) 1,000 unit IVPUSH PRN PRN PRN Reason: Heparin Last Admin: 04/29/18 08:20 Dose: 1,000 unit Heparin Sodium (Porcine) (Heparin -) 5,000 unit IVPUSH PRN PRN PRN Reason: Heparin Hydralazine HCl (Apresoline -) 50 mg PO TID [facility] Last Admin: 04/29/18 05:55 Dose: 50 mg Heparin Sodium (Porcine) 25, (000 unit/ Sodium Chloride) 500 mls @ 16 mls/hr IV TITR [facility]; Protocol Last Admin: 04/29/18 08:18 Dose: 1,350 unit/hr, 27 mls/hr Cefepime HCl 0.5 gm/ Dextrose 100 mls @ 200 mls/hr IVPB DAILY [facility]; Protocol Last Admin: 04/28/18 14:42 Dose: 200 mls/hr Isosorbide Mononitrate (Imdur -) 60 mg PO DAILY [facility] Last Admin: 04/28/18 17:15 Dose: 60 mg Mupirocin (Bactroban Ointment (For Decolonization) -) 1 applic NS BID [facility] Stop: 05/02/18 21:59 Last Admin: 04/28/18 21:08 Dose: 1 applic Pantoprazole Sodium (Protonix Iv) 40 mg IVPUSH DAILY [facility] Last Admin: 04/28/18 09:24 Dose: 40 mg Valsartan (Diovan -) 40 mg PO DAILY [facility] Last Admin: 04/28/18 17:15 Dose: 40 mg A/P Altered Mental Status resolved s/p Acute Respiratory Failure Hypertensive Urgency Hypertensive vs Uremic Encephalopathy improved Acute on Chronic Renal Failure requiring HD +Troponins likely demand ischemia - continue antibiotics - f/u pending cultures - HD per renal - monitor urine output, creatinine - taper FiO2 to keep SpO2 >90% - x-ray knee - pain control - BP control - PO as tolerated - DVT/GI prophylaxis - can monitor on telemetry critical care time spent in reviewing chart, evaluating patient and formulating plan 35 min
--- NOTE | 2018-04-29 09:45 | PN ---
Progress Note (short form) - Note Progress Note: 62 WITH HTN ESRD PT JUST TOOK TOO LONG TO PLAN FOR HD OUT PT INSPITE OF REPEATED COUNSELLING ADMITTED WITH DEPRESSED MS ACCELERATED HTN VOLUME OVERLOAD INTUBATED MONDAY XRAY WHITE OUT SEDATED DIALYZED EMERGENTLY O/E RT IJ CHEST CLEAR ABD SOFE [id number] EXT NO EDEMA ODONNELL OUT LEFT KNEE POINT TENDERNESS NOW EXTUBATED BUT WITH FEVER MOST LIKELY HAS PNEUMONIA POS BLOOD CULTURE WITH STREP SPUTIM FOR STAPH AND KLEBSIELLA ON ABX REPEAT CULTURES NEG GOT A RT IJ TRIALYSIS CATHETER DIALYZED YESTERDAY 2 KG REMOVED NEW ISSUE IS A LEFT TENDER KNEE DOES NOT APPEAR TO BE GOUT XRAY ORDERED ORTHO EVAL? HD IN AM ON A HEPARIN DRIP IF NO INFECTION THEN PERMCATH NEXT WEEK NEEDS PT AFTER KNEE ISSUE IS RESOLVED START OUT PT HD ARRANGEMENTS AT [facility] [phone] FAX [phone] CALL ME FOR QUESTIONS [phone]
--- NOTE | 2018-04-29 10:11 | PN ---
Progress Note, Physician Chief Complaint: Events noted Awake and alert complains of left knee pain and tenderness History of Present Illness: Patient was seen and examined. Awake. Chart was reviewed Has Tenzin pereyra neck Denies SOB this AM. Denies chest pain Complains of left knee tenderness - Current Medication List Current Medications: Active Medications Acetaminophen (Ofirmev Injection -) 1,000 mg IVPB Q6H PRN PRN Reason: FEVER Last Admin: 04/29/18 02:51 Dose: 1,000 mg Atorvastatin Calcium (Lipitor -) 80 mg PO HS [facility] Last Admin: 04/28/18 21:08 Dose: 80 mg Benzocaine/Menthol (Cepacol Lozenge -) 1 each MM PRN PRN PRN Reason: SORE THROAT Last Admin: 04/28/18 21:09 Dose: 1 each Calcium Acetate (Phoslo -) 1,334 mg PO TIDCM [facility] Last Admin: 04/29/18 08:38 Dose: 1,334 mg Carvedilol (Coreg -) 12.5 mg PO BID [facility] Last Admin: 04/28/18 21:08 Dose: 12.5 mg Chlorhexidine Gluconate (Hibiclens For Decolonization -) 1 applic TP HS [facility] Last Admin: 04/28/18 21:09 Dose: 1 applic Heparin Sodium (Porcine) (Heparin -) 1,000 unit IVPUSH PRN PRN PRN Reason: Heparin Last Admin: 04/29/18 08:20 Dose: 1,000 unit Heparin Sodium (Porcine) (Heparin -) 5,000 unit IVPUSH PRN PRN PRN Reason: Heparin Hydralazine HCl (Apresoline -) 50 mg PO TID [facility] Last Admin: 04/29/18 05:55 Dose: 50 mg Heparin Sodium (Porcine) 25, (000 unit/ Sodium Chloride) 500 mls @ 16 mls/hr IV TITR [facility]; Protocol Last Admin: 04/29/18 08:18 Dose: 1,350 unit/hr, 27 mls/hr Cefepime HCl 0.5 gm/ Dextrose 100 mls @ 200 mls/hr IVPB DAILY [facility]; Protocol Last Admin: 04/28/18 14:42 Dose: 200 mls/hr Isosorbide Mononitrate (Imdur -) 60 mg PO DAILY [facility] Last Admin: 06/23/18 17:15 Dose: 60 mg Mupirocin (Bactroban Ointment (For Decolonization) -) 1 applic NS BID [facility] Stop: 05/02/18 21:59 Last Admin: 04/28/18 21:08 Dose: 1 applic Pantoprazole Sodium (Protonix Iv) 40 mg IVPUSH DAILY [facility] Last Admin: 04/28/18 09:24 Dose: 40 mg Valsartan (Diovan -) 40 mg PO DAILY [facility] Last Admin: 04/28/18 17:15 Dose: 40 mg - Objective Vital Signs: Vital Signs Temperature 99.1 F 04/29/18 07:27 Pulse Rate 75 04/29/18 07:27 Respiratory Rate 22 04/29/18 07:27 Blood Pressure 155/73 04/29/18 07:27 O2 Sat by Pulse Oximetry (%) 94 L 04/29/18 07:34 HENT: Yes: Atraumatic Neck: Yes: Supple Cardiovascular: Yes: Regular Rate and Rhythm, S1, S2 Respiratory: Yes: Diminished Gastrointestinal: Yes: Normal Bowel Sounds, Soft. No: Tenderness Musculoskeletal: Yes: Joint Swelling Edema: No Additional Findings/Remarks: - Review of Systems Constitutional: denies: Chills, Fever Cardiovascular: denies: Chest Pain, Shortness of Breath. denies: Palpitations Respiratory: denies: SOB, SOB on Exertion. denies: Cough, Hemoptysis, Orthopnea , PND Gastrointestinal: denies: Abdominal Pain, Constipation, Diarrhea, Melena, Nausea , Rectal Bleeding, Vomiting Musculoskeletal: (+) Joint Pain. denies: Back Pain Neurological: denies: Unsteady Gait, Weakness. denies: Dizziness, Headache, Seizure, Syncope Labs: CBC, BMP 04/29/18 05:30 04/29/18 05:30 Problem List - Problems (1) Acute on chronic systolic (congestive) heart failure Code(s): I50.23 - ACUTE ON CHRONIC SYSTOLIC (CONGESTIVE) HEART FAILURE (2) End stage renal disease Code(s): N18.6 - END STAGE RENAL DISEASE (3) Hyperlipidemia Code(s): E78.5 - HYPERLIPIDEMIA, UNSPECIFIED Qualifiers: Hyperlipidemia type: pure hypercholesterolemia Qualified Code(s): E78.00 - Pure hypercholesterolemia, unspecified; E78.0 - Pure hypercholesterolemia (4) Hypertensive cardiomyopathy Code(s): I11.9 - HYPERTENSIVE HEART DISEASE WITHOUT HEART FAILURE; I43 - CARDIOMYOPATHY IN DISEASES CLASSIFIED ELSEWHERE Qualifiers: Heart failure presence: with heart failure Qualified Code(s): I11.0 - Hypertensive heart disease with heart failure; I43 - Cardiomyopathy in diseases classified elsewhere (5) Ischemic cardiomyopathy Code(s): I25.5 - ISCHEMIC CARDIOMYOPATHY (6) CAD (coronary artery disease) Code(s): I25.10 - ATHSCL HEART DISEASE OF [place] CORONARY ARTERY W/O ANG PCTRS Qualifiers: Coronary Disease-Associated Artery/Lesion type: [place] artery [place] vs. transplanted heart: [place] heart Associated angina: without angina Qualified Code(s): I25.10 - Atherosclerotic heart disease of [place] coronary artery without angina pectoris Assessment/Plan 1. Acute on chronic diastolic/systolic failure and pulmonary edema 2. Hypertensive urgency 3. Post acute hypoxic respiratory failure 4. CAD s/p NC, demand ischemic injury 5. Ischemic cardiomyopathy 6. Acute on Chronic Renal Failure requiring HD 7. Paroxysmal atrial fibrillation currently in sinus rhythm 8. Resolved Altered Mental Status r/o Hypertensive vs Uremic Encephalopathy PLAN: 1. Volume removal via UF/HD at the discretion of renal service and as needed 2. Continue Carvedilol 12.5 bid, Hydralazine 50 tid and Imdur 60 qd. Continue Lipitor 80 qd and Diovan 40 mg QD. Eventually Entresto can be used as outpatient 3. Continue Heparin gtt for now and resume Coumadin per INR when ready 4. Knee Xray and further plans are to follow. 5. Patient is to see Dr. Jeannette Kaiser at [facility] upon discharge Further plans are to follow Johnathan Claros MD
[2018-04-29] MEDS: PANTOPRAZOLE SODIUM 40 MG VIAL IVPUSH SCH (10:16)
[2018-04-29] MEDS: MUPIROCIN 2% TOPICAL OINTMENT FOR DECOLONIZATION NS SCH ×2 (10:17→21:08)
[2018-04-29] MEDS: CARVEDILOL 12.5 MG TABLET (FP) PO SCH ×2 (10:17→21:07)
[2018-04-29] MEDS: ISOSORBIDE MONONITRATE 60 MG TAB.SR.24H (FP) PO SCH (10:17)
[2018-04-29] MEDS: VALSARTAN 40 MG TABLET (FP) PO SCH (10:17)
[2018-04-29] MEDS: CEFEPIME 0.5 GM in DEXTROSE 5%-WATER - 100 ML IVPB SCH (10:28)
--- NOTE | 2018-04-29 15:40 | PN ---
Progress Note, Physician History of Present Illness: Pt is alert, without distress. Low grade fever to 100F earlier. c/o Lt knee pain. Otherwise denies shortness of breath, chills. - Current Medication List Current Medications: Active Medications Atorvastatin Calcium (Lipitor -) 80 mg PO HS [facility] Last Admin: 04/28/18 21:08 Dose: 80 mg Benzocaine/Menthol (Cepacol Lozenge -) 1 each MM PRN PRN PRN Reason: SORE THROAT Last Admin: 04/28/18 21:09 Dose: 1 each Calcium Acetate (Phoslo -) 1,334 mg PO TIDCM [facility] Last Admin: 04/29/18 13:00 Dose: 1,334 mg Carvedilol (Coreg -) 12.5 mg PO BID [facility] Last Admin: 04/29/18 10:17 Dose: 12.5 mg Chlorhexidine Gluconate (Hibiclens For Decolonization -) 1 applic TP HS [facility] Last Admin: 04/28/18 21:09 Dose: 1 applic Heparin Sodium (Porcine) (Heparin -) 1,000 unit IVPUSH PRN PRN PRN Reason: Heparin Last Admin: 04/29/18 08:20 Dose: 1,000 unit Heparin Sodium (Porcine) (Heparin -) 5,000 unit IVPUSH PRN PRN PRN Reason: Heparin Hydralazine HCl (Apresoline -) 50 mg PO TID [facility] Last Admin: 04/29/18 13:07 Dose: 50 mg Heparin Sodium (Porcine) 25, (000 unit/ Sodium Chloride) 500 mls @ 16 mls/hr IV TITR [facility]; Protocol Last Admin: 04/29/18 08:18 Dose: 1,350 unit/hr, 27 mls/hr Cefepime HCl 0.5 gm/ Dextrose 100 mls @ 200 mls/hr IVPB DAILY [facility]; Protocol Last Admin: 04/29/18 10:28 Dose: 200 mls/hr Isosorbide Mononitrate (Imdur -) 60 mg PO DAILY [facility] Last Admin: 04/29/18 10:17 Dose: 60 mg Mupirocin (Bactroban Ointment (For Decolonization) -) 1 applic NS BID [facility] Stop: 05/02/18 21:59 Last Admin: 04/29/18 10:17 Dose: 1 applic Pantoprazole Sodium (Protonix Iv) 40 mg IVPUSH DAILY [facility] Last Admin: 04/29/18 10:16 Dose: 40 mg Valsartan (Diovan -) 40 mg PO DAILY [facility] Last Admin: 04/29/18 10:17 Dose: 40 mg - Objective Vital Signs: Vital Signs Temperature 99.1 F 04/29/18 07:27 Pulse Rate 71 04/29/18 13:00 Respiratory Rate 14 04/29/18 13:00 Blood Pressure 141/65 04/29/18 13:00 O2 Sat by Pulse Oximetry (%) 94 L 04/29/18 07:34 Constitutional: Yes: No Distress, Calm Cardiovascular: Yes: Regular Rate and Rhythm Respiratory: Yes: Diminished (bibasilarly) Gastrointestinal: Yes: Normal Bowel Sounds, Soft Musculoskeletal: Yes: Other (Lt knee pain, minimal edema) Neurological: Yes: Alert Labs: CBC, BMP 04/29/18 05:30 04/29/18 05:30 INR, PTT INR 1.27 (0.82-1.09) H 04/26/18 23:30 Microbiology 04/26/18 16:30 Sputum - Expectorated Gram Stain - Final 04/26/18 16:30 Sputum - Expectorated Sputum Culture - Preliminary Strep Agalactiae Group B 04/26/18 17:00 Blood - Peripheral Venous Blood Culture - Preliminary NO GROWTH OBTAINED AFTER 48 HOURS, INCUBATION TO CONTINUE FOR 3 DAYS. 04/26/18 16:40 Blood - Peripheral Venous Blood Culture - Preliminary NO GROWTH OBTAINED AFTER 48 HOURS, INCUBATION TO CONTINUE FOR 3 DAYS. 04/26/18 16:00 Urine - Urine Mcbride Urine Culture - Final NO GROWTH OBTAINED 04/25/18 10:24 Blood - Peripheral Venous Blood Culture - Final Streptococcus Constellatus 04/25/18 10:40 Blood - Peripheral Venous Blood Culture - Final Streptococcus Constellatus 04/25/18 11:10 Sputum - Endotrachea Suction/Ventilator Gram Stain - Final 04/25/18 11:10 Sputum - Endotrachea Suction/Ventilator Sputum Culture - Final Klebsiella Pneumoniae Mr S Aureus 04/25/18 10:10 Urine - Urine Mcbride Urine Culture - Final NO GROWTH OBTAINED 04/22/18 18:10 Urine - Urine Mcbride Urine Culture - Final NO GROWTH OBTAINED - ....Imaging X-ray: Report Reviewed (Lt knee xray: no swelling/foreign body) Problem List - Problems (1) Acute on chronic systolic (congestive) heart failure Code(s): I50.23 - ACUTE ON CHRONIC SYSTOLIC (CONGESTIVE) HEART FAILURE (2) CAD (coronary artery disease) Code(s): I25.10 - ATHSCL HEART DISEASE OF [place] CORONARY ARTERY W/O ANG PCTRS Qualifiers: Coronary Disease-Associated Artery/Lesion type: [place] artery [place] vs. transplanted heart: [place] heart Associated angina: without angina Qualified Code(s): I25.10 - Atherosclerotic heart disease of [place] coronary artery without angina pectoris (3) End stage renal disease Code(s): N18.6 - END STAGE RENAL DISEASE (4) Hyperlipidemia Code(s): E78.5 - HYPERLIPIDEMIA, UNSPECIFIED Qualifiers: Hyperlipidemia type: pure hypercholesterolemia Qualified Code(s): E78.00 - Pure hypercholesterolemia, unspecified; E78.0 - Pure hypercholesterolemia (5) Hypertensive cardiomyopathy Code(s): I11.9 - HYPERTENSIVE HEART DISEASE WITHOUT HEART FAILURE; I43 - CARDIOMYOPATHY IN DISEASES CLASSIFIED ELSEWHERE Qualifiers: Heart failure presence: with heart failure Qualified Code(s): I11.0 - Hypertensive heart disease with heart failure; I43 - Cardiomyopathy in diseases classified elsewhere (6) Ischemic cardiomyopathy Code(s): I25.5 - ISCHEMIC CARDIOMYOPATHY (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 male admitted with SOB/Acute respiratory failure, Pulmonary congestion, Fever, with Femoral catheter in place Sepsis PNA - Klebsiella/MRSA Streptococcal bacteremia Persistent Fever Lt knee pain/mild swelling Renal Failure - now on HD CHF/Pulm edema Hypertensive urgency CAD s/p HI s/p hypoxic resp failure - cont. Cefepime - Vancomycin dosing based on levels, dose given yesterday post HD. repeat level in a.m. - latest blood cultures negative - Xray of left knee without specific findings, consider CT/orthopedic evaluation -continue monitor wbc/temperatures
--- NOTE | 2018-04-29 16:18 | PN ---
Progress Note (short form) - Note Progress Note: patient seen and examined. no dyspnea, chest pain, fevers, chills, abdominal pain or urinary symptoms. left knee pain/swelling noted today. No h/o gout. Objective: Vital Signs Period Temp Pulse Resp BP Sys/Wyatt Pulse Ox Last 24 Hr 98.0 F-100 F 70-92 14-24 139-189/63-87 94-94 Intake & Output 04/26/18 04/27/18 04/28/18 04/29/18 23:59 23:59 23:59 23:59 Intake Total 335 457 2885.5 375 Output Total 300 525 300 Balance 537 235 796.5 375 Weight 125 lb 7.088 oz 128 lb 128 lb 4.8 oz 126 lb 5 oz General: sitting in bed in no acute distress Chest: decreased breath sounds at bases Abdomen: soft, NT, ND Extremities: left knee swelling/mild erythema/warmth with some limitation in ROM Home Medications Medication Instructions Recorded Amlodipine Besylate [Norvasc -] 10 mg PO DAILY 04/22/18 Aspirin Coated [Ecotrin -] 81 mg PO DAILY 04/22/18 Carvedilol [Coreg -] 12.5 mg PO BID 04/22/18 Donepezil HCl [Aricept -] 10 mg PO DAILY 04/22/18 Hydralazine HCl 50 mg PO TID 04/22/18 Tamsulosin HCl [Flomax] 0.4 mg PO DAILY 04/22/18 Atorvastatin Calcium 80 mg PO DAILY 04/23/18 Calcium Acetate [Phoslo -] 667 mg PO TIDCM 04/23/18 Isosorbide Mononitrate [Isosorbide 60 mg PO DAILY 04/23/18 Mononitrate ER] Sodium Bicarbonate - 650 mg PO TID 04/23/18 Active Medications Atorvastatin Calcium (Lipitor -) 80 mg PO [facility] Last Admin: 04/28/18 21:08 Dose: 80 mg Benzocaine/Menthol (Cepacol Lozenge -) 1 each MM PRN PRN PRN Reason: SORE THROAT Last Admin: 04/28/18 21:09 Dose: 1 each Calcium Acetate (Phoslo -) 1,334 mg PO TIDCM [facility] Last Admin: 04/29/18 13:00 Dose: 1,334 mg Carvedilol (Coreg -) 12.5 mg PO BID [facility] Last Admin: 04/29/18 10:17 Dose: 12.5 mg Chlorhexidine Gluconate (Hibiclens For Decolonization -) 1 applic TP HS [facility] Last Admin: 04/28/18 21:09 Dose: 1 applic Heparin Sodium (Porcine) (Heparin -) 1,000 unit IVPUSH PRN PRN PRN Reason: Heparin Last Admin: 04/29/18 08:20 Dose: 1,000 unit Heparin Sodium (Porcine) (Heparin -) 5,000 unit IVPUSH PRN PRN PRN Reason: Heparin Hydralazine HCl (Apresoline -) 50 mg PO TID [facility] Last Admin: 04/29/18 13:07 Dose: 50 mg Heparin Sodium (Porcine) 25, (000 unit/ Sodium Chloride) 500 mls @ 16 mls/hr IV TITR [facility]; Protocol Last Admin: 04/29/18 08:18 Dose: 1,350 unit/hr, 27 mls/hr Cefepime HCl 0.5 gm/ Dextrose 100 mls @ 200 mls/hr IVPB DAILY [facility]; Protocol Last Admin: 04/29/18 10:28 Dose: 200 mls/hr Isosorbide Mononitrate (Imdur -) 60 mg PO DAILY [facility] Last Admin: 04/29/18 10:17 Dose: 60 mg Mupirocin (Bactroban Ointment (For Decolonization) -) 1 applic NS BID [facility] Stop: 05/02/18 21:59 Last Admin: 04/29/18 10:17 Dose: 1 applic Pantoprazole Sodium (Protonix Iv) 40 mg IVPUSH DAILY [facility] Last Admin: 04/29/18 10:16 Dose: 40 mg Valsartan (Diovan -) 40 mg PO DAILY [facility] Last Admin: 04/29/18 10:17 Dose: 40 mg Laboratory Results - last 24 hr 04/28/18 04/29/18 04/29/18 21:00 05:30 05:30 WBC 9.6 RBC 3.58 L Hgb 10.1 L Hct 30.7 L MCV 85.6 MCH 28.1 MCHC 32.8 RDW 18.1 H Plt Count 213 MPV 9.4 Absolute Neuts (auto) 7.1 Neutrophils % 74.0 Lymphocytes % 9.1 D Monocytes % 12.0 H Eosinophils % 4.1 D Basophils % 0.8 Nucleated RBC % 0 PTT (Actin FS) 42.4 H 48.2 H Sodium Potassium Chloride Carbon Dioxide Anion Gap BUN Creatinine Creat Clearance w eGFR Random Glucose Calcium Phosphorus Magnesium Total Bilirubin AST ALT Alkaline Phosphatase Total Protein Albumin 04/29/18 05:30 WBC RBC Hgb Hct MCV MCH MCHC RDW Plt Count MPV Absolute Neuts (auto) Neutrophils % Lymphocytes % Monocytes % Eosinophils % Basophils % Nucleated RBC % PTT (Actin FS) Sodium 141 Potassium 4.0 Chloride 100 Carbon Dioxide 32 D Anion Gap 9 BUN 47 H D Creatinine 7.3 H Creat Clearance w eGFR 7.61 Random Glucose 97 D Calcium 8.0 L Phosphorus 5.2 H D Magnesium 2.0 Total Bilirubin 0.4 AST 22 ALT 18 D Alkaline Phosphatase 90 Total Protein 5.9 L Albumin 2.0 L Microbiology 04/26/18 16:30 Sputum - Expectorated Gram Stain - Final 04/26/18 16:30 Sputum - Expectorated Sputum Culture - Preliminary Strep Agalactiae Group B 04/26/18 17:00 Blood - Peripheral Venous Blood Culture - Preliminary NO GROWTH OBTAINED AFTER 48 HOURS, INCUBATION TO CONTINUE FOR 3 DAYS. 04/26/18 16:40 Blood - Peripheral Venous Blood Culture - Preliminary NO GROWTH OBTAINED AFTER 48 HOURS, INCUBATION TO CONTINUE FOR 3 DAYS. 04/26/18 16:00 Urine - Urine Mcbride Urine Culture - Final NO GROWTH OBTAINED 04/25/18 10:24 Blood - Peripheral Venous Blood Culture - Final Streptococcus Constellatus 04/25/18 10:40 Blood - Peripheral Venous Blood Culture - Final Streptococcus Constellatus 04/25/18 11:10 Sputum - Endotrachea Suction/Ventilator Gram Stain - Final 04/25/18 11:10 Sputum - Endotrachea Suction/Ventilator Sputum Culture - Final Klebsiella Pneumoniae Mr S Aureus 04/25/18 10:10 Urine - Urine Mcbride Urine Culture - Final NO GROWTH OBTAINED 04/22/18 18:10 Urine - Urine Mcbride Urine Culture - Final NO GROWTH OBTAINED Assessment/Plan: 62yo M with PMH CKD (has refused HD in the past), and CAD presenting with progressively worsening shortness of breath and altered mental status. in the ER was found to have SBP 240. code chaya was activated in the ER -Acute toxic metabolic encephalopathy, likely uremic + hypertensive -Acute hypoxic respiratory failure, suspect fluid overload from ESRD +/- ARDS -Hypertensive emergency -Acute on CKD stage V -Elevated troponin, suspect demand ischemia from above -Paroxysmal Atrial fibrillation -Sepsis with Strep bacteremia, Suspect PNA Klebsiella/MRSA -Left knee swelling/pain -Normocytic anemia, suspect from CKD/dilutional -Dementia Plan: Left knee swelling/warmth/pain today, Knee xray today. Orthopedic input noted. ID input noted, s/p Cefepime/vanco with HD, blood cx noted. Vanco levels noted. HD catheter removed. repeat Blood cx neg so far. Extubated, doing well,speech/swallow eval noted, PO as tolerated. s/p shiley 04/22 with emergent HD, removed 04/25. Off labetalol drip. BP improved on home oral anti-hypertensives. Right IJ HD placed 04/29, s/p HD on 04/29, follow up with renal for long HD access once infectious process improved. 2D echo results reviewed. Cardiology consulted, input appreciated. Continue diovan/coreg/statin/hydralazine/imdur. Heparin drip. Start coumadin once no further intervention anticipated. Trend h/h, hold aricept. DVTPPx heparin drip Dispo pending clinical improvement. For transfer to telemetry The care of this patient involved high complexity decision making to prevent further life threatening deterioration of the patient's condition and/or to evaluate & treat vital organ system(s) failure or risk of failure. Critical care time spent in reviewing chart, evaluating patient and formulating plan - 40 minutes. Visit type - Emergency Visit Emergency Visit: Yes ED Registration Date: 04/22/18 Care time: The patient presented to the Emergency Department on the above date and was hospitalized for further evaluation of their emergent condition. - New Patient This patient is new to me today: No - Critical Care Critical Care patient: Yes Total Critical Care Time (in minutes): 45 Critical Care Statement: The care of this patient involved high complexity decision making to prevent further life threatening deterioration of the patient 's condition and/or to evaluate & treat vital organ system(s) failure or risk of failure. - Discharge Referral Referred to [facility] No
[2018-04-29] MEDS: ATORVASTATIN CA 80 MG TABLET (FP) PO SCH (21:07)
[2018-04-29] MEDS: CHLORHEXIDINE GLUCONATE 4% CLEANSER FOR DECOLONIZATION TP SCH (21:09)
[2018-04-30] MEDS: hydrALAZINE HCL 50 MG TABLET (FP) PO SCH ×3 (05:48→21:49)
[2018-04-30 06:12] LABS: HEMATOCRIT 30.2 % (35.4-49); HEMOGLOBIN 9.8 GM/dL (11.7-16.9); MCH 27.7 pg (25.7-33.7); MCHC 32.4 g/dl (32.0-35.9); MEAN CELL VOLUME 85.5 fl (80-96); MEAN PLT VOLUME 8.8 fl (7.5-11.1); PLATELET COUNT 232 K/MM3 (134-434); RBC 3.53 M/mm3 (4.00-5.60); RDW 17.2 % (11.9-15.9); WHITE BLOOD COUNT 9.6 K/mm3 (4.0-10.0)
[2018-04-30 06:42] LABS: CHLORIDE 98 mmol/L (98-107); POTASSIUM 3.7 mmol/L (3.5-5.1); SODIUM 139 mmol/L (136-145)
[2018-04-30 07:13] LABS: ALBUMIN 1.9 g/dl (3.4-5.0); ALK PHOS 93 U/L (45-117); ANION GAP 13 (8-16); BILIRUBIN,TOTAL 0.4 mg/dL (0.2-1.0); BLOOD UREA NITROGEN 63 mg/dL (7-18); CALCIUM 8.2 mg/dL (8.5-10.1); CO2 28 mmol/L (21-32); GLUCOSE,RANDOM 80 mg/dL (74-106); MAGNESIUM 1.9 mg/dL (1.8-2.4); PHOSPHOROUS 5.8 mg/dL (2.5-4.9); SGOT/AST 25 U/L (15-37); SGPT/ALT 20 U/L (12-78); TOT PROT 5.6 g/dl (6.4-8.2)
[2018-04-30 08:15] LABS: CREATININE 8.7 mg/dL (0.7-1.3)
[2018-04-30] MEDS ORDERED: PT OWN MED DRAWER 7, Y5N ONE (08:26)
[2018-04-30] MEDS: CALCIUM ACETATE 667 MG CAPSULE (FP) PO SCH ×3 (08:30→17:27)
--- NOTE | 2018-04-30 08:45 | PN ---
Teaching Attending Note Name of Resident: Geni Sorensen ATTENDING PHYSICIAN STATEMENT I saw and evaluated the patient. I reviewed the resident's note and discussed the case with the resident. I agree with the resident's findings and plan as documented with exceptions below. SUBJECTIVE: Patient seen and examined. Still with left knee pain/swelling, some throat pain but no dyspnea, abdominal or urinary symptoms. OBJECTIVE: Vital Signs Period Temp Pulse Resp BP Sys/Wyatt Pulse Ox Last 24 Hr 99.1 F-99.5 F 70-98 14-22 128-190/56-100 96-96 Intake & Output 04/27/18 04/28/18 04/29/18 04/30/18 23:59 23:59 23:59 23:59 Intake Total 760 1096.5 1552 282 Output Total 525 300 300 200 Balance 235 796.5 1252 82 Weight 128 lb 128 lb 4.8 oz 126 lb 5 oz 130 lb 1 oz General: sitting in bed in no acute distress Chest: decreased effort, no rales or wheezing Abdomen: soft, NT, ND Extremities: left knee swelling/warmth/erythema unchanged Active Medications Atorvastatin Calcium (Lipitor -) 80 mg PO HS [facility] Last Admin: 04/29/18 21:07 Dose: 80 mg Benzocaine/Menthol (Cepacol Lozenge -) 1 each MM PRN PRN PRN Reason: SORE THROAT Last Admin: 04/28/18 21:09 Dose: 1 each Calcium Acetate (Phoslo -) 1,334 mg PO TIDCM [facility] Last Admin: 04/29/18 18:30 Dose: 1,334 mg Carvedilol (Coreg -) 12.5 mg PO BID [facility] Last Admin: 04/29/18 21:07 Dose: 12.5 mg Chlorhexidine Gluconate (Hibiclens For Decolonization -) 1 applic TP HS [facility] Last Admin: 04/29/18 21:09 Dose: 1 applic Heparin Sodium (Porcine) (Heparin -) 1,000 unit IVPUSH PRN PRN PRN Reason: Heparin Last Admin: 04/29/18 08:20 Dose: 1,000 unit Heparin Sodium (Porcine) (Heparin -) 5,000 unit IVPUSH PRN PRN PRN Reason: Heparin Hydralazine HCl (Apresoline -) 50 mg PO TID [facility] Last Admin: 04/30/18 05:48 Dose: 50 mg Heparin Sodium (Porcine) 25, (000 unit/ Sodium Chloride) 500 mls @ 16 mls/hr IV TITR [facility]; Protocol Last Titration: 04/29/18 20:48 Dose: 1,300 unit/hr, 26 mls/hr Cefepime HCl 0.5 gm/ Dextrose 100 mls @ 200 mls/hr IVPB DAILY [facility]; Protocol Last Admin: 04/29/18 10:28 Dose: 200 mls/hr Isosorbide Mononitrate (Imdur -) 60 mg PO DAILY [facility] Last Admin: 04/29/18 10:17 Dose: 60 mg Mupirocin (Bactroban Ointment (For Decolonization) -) 1 applic NS BID [facility] Stop: 05/02/18 21:59 Last Admin: 04/29/18 21:08 Dose: 1 applic Pantoprazole Sodium (Protonix Iv) 40 mg IVPUSH DAILY [facility] Last Admin: 04/29/18 10:16 Dose: 40 mg Valsartan (Diovan -) 40 mg PO DAILY [facility] Last Admin: 04/29/18 10:17 Dose: 40 mg Laboratory Results - last 24 hr 04/29/18 04/30/18 04/30/18 18:45 05:30 05:30 WBC 9.6 RBC 3.53 L Hgb 9.8 L Hct 30.2 L MCV 85.5 MCH 27.7 MCHC 32.4 RDW 17.2 H Plt Count 232 MPV 8.8 PTT (Actin FS) 78.1 H D 50.4 H D Sodium Potassium Chloride Carbon Dioxide Anion Gap BUN Creatinine Creat Clearance w eGFR Random Glucose Calcium Phosphorus Magnesium Total Bilirubin AST ALT Alkaline Phosphatase Total Protein Albumin 04/30/18 05:30 WBC RBC Hgb Hct MCV MCH MCHC RDW Plt Count MPV PTT (Actin FS) Sodium 139 Potassium 3.7 Chloride 98 Carbon Dioxide 28 Anion Gap 13 BUN 63 H Creatinine 8.7 H* Creat Clearance w eGFR 6.22 Random Glucose 80 Calcium 8.2 L Phosphorus 5.8 H Magnesium 1.9 Total Bilirubin 0.4 AST 25 ALT 20 Alkaline Phosphatase 93 Total Protein 5.6 L Albumin 1.9 L ASSESSMENT AND PLAN: 62yo M with PMH CKD (has refused HD in the past), and CAD presenting with progressively worsening shortness of breath and altered mental status. in the ER was found to have SBP 240. code larkin was activated in the ER -Acute toxic metabolic encephalopathy, likely uremic + hypertensive -Acute hypoxic respiratory failure, suspect fluid overload from ESRD +/- ARDS -Hypertensive emergency -Acute on CKD stage V -Elevated troponin, suspect demand ischemia from above -Paroxysmal Atrial fibrillation -Sepsis with Strep bacteremia, Suspect PNA Klebsiella/MRSA -Left knee swelling/pain, ?Gout, r/o infectious -Normocytic anemia, suspect from CKD/dilutional -Dementia Plan: Left knee swelling/warmth/pain unchanged, ?Gout given sudden onset though no prior history. Recent bacteremia. Knee xray noted. Orthopedic consulted, follow up recs. ID input noted, s/p Cefepime/vanco with HD, blood cx noted. Vanco levels noted. Right femoral HD cath removed 04/26, Right IJ HD cath placed 04/28. repeat Blood cx neg so far. Dr. Russ consulted, for permacath and PD catheter. Extubated, doing well,speech/swallow eval noted, dysphagia pureed, advance if can be tolerated. Off labetalol drip. BP improved on home oral anti-hypertensives. 2D echo results reviewed. Cardiology consulted, input appreciated. Continue diovan/coreg/statin/hydralazine/imdur. Heparin drip. Start coumadin once no further intervention anticipated. Trend h/h, hold aricept. DVTPPx heparin drip Dispo pending clinical improvement. For transfer to telemetry The care of this patient involved high complexity decision making to prevent further life threatening deterioration of the patient's condition and/or to evaluate & treat vital organ system(s) failure or risk of failure. Critical care time spent in reviewing chart, evaluating patient and formulating plan - 40 minutes.
[2018-04-30] MEDS: ISOSORBIDE MONONITRATE 60 MG TAB.SR.24H (FP) PO SCH (10:13)
[2018-04-30] MEDS: PANTOPRAZOLE SODIUM 40 MG VIAL IVPUSH SCH (10:13)
[2018-04-30] MEDS: CARVEDILOL 12.5 MG TABLET (FP) PO SCH (10:13)
[2018-04-30] MEDS: VALSARTAN 40 MG TABLET (FP) PO SCH (10:13)
[2018-04-30] MEDS: MAGNESIUM OXIDE 400 MG TABLET (FP) PO SCH (10:19)
[2018-04-30] MEDS: CEFEPIME 0.5 GM in DEXTROSE 5%-WATER - 100 ML IVPB SCH (10:21)
[2018-04-30] MEDS: MUPIROCIN 2% TOPICAL OINTMENT FOR DECOLONIZATION NS SCH ×2 (10:22→21:49)
[2018-04-30] MEDS: LIDOCAINE VISCOUS 2% ORAL/TOP 20 ML UNIT-DOSE CUP MM PRN (10:43)
[2018-04-30] MEDS ORDERED: LIDOCAINE 5% TOPICAL PATCH TP ONE ×2 (11:14→17:15)
--- NOTE | 2018-04-30 11:21 | PN ---
Progress Note, Physician Chief Complaint: Events noted Awake and alert complains of left knee pain and tenderness at knee cap History of Present Illness: Patient was seen and examined. Awake. Chart was reviewed Has Tenzin pereyra neck Denies SOB this AM. Denies chest pain Complains of left knee tenderness a the knee cap - Current Medication List Current Medications: Active Medications Atorvastatin Calcium (Lipitor -) 80 mg PO HS [facility] Last Admin: 04/29/18 21:07 Dose: 80 mg Calcium Acetate (Phoslo -) 1,334 mg PO TIDCM [facility] Last Admin: 04/30/18 08:30 Dose: 1,334 mg Carvedilol (Coreg -) 12.5 mg PO BID [facility] Last Admin: 04/30/18 10:13 Dose: 12.5 mg Chlorhexidine Gluconate (Hibiclens For Decolonization -) 1 applic TP HS [facility] Last Admin: 04/29/18 21:09 Dose: 1 applic Heparin Sodium (Porcine) (Heparin -) 1,000 unit IVPUSH PRN PRN PRN Reason: Heparin Last Admin: 04/29/18 08:20 Dose: 1,000 unit Heparin Sodium (Porcine) (Heparin -) 5,000 unit IVPUSH PRN PRN PRN Reason: Heparin Hydralazine HCl (Apresoline -) 50 mg PO TID [facility] Last Admin: 04/30/18 05:48 Dose: 50 mg Heparin Sodium (Porcine) 25, (000 unit/ Sodium Chloride) 500 mls @ 16 mls/hr IV TITR [facility]; Protocol Last Titration: 04/29/18 20:48 Dose: 1,300 unit/hr, 26 mls/hr Cefepime HCl 0.5 gm/ Dextrose 100 mls @ 200 mls/hr IVPB DAILY [facility]; Protocol Last Admin: 04/30/18 10:21 Dose: 200 mls/hr Isosorbide Mononitrate (Imdur -) 60 mg PO DAILY [facility] Last Admin: 04/30/18 10:13 Dose: 60 mg Lidocaine HCl (Xylocaine 2% Viscous Oral -) 20 ml MM Q6HPO PRN PRN Reason: ORAL PAIN/MOUTH SORES Last Admin: 04/30/18 10:43 Dose: 20 ml Magnesium Oxide (Mag-Ox -) 400 mg PO DAILY [facility] Stop: 05/02/18 10:01 Last Admin: 04/30/18 10:19 Dose: 400 mg Miscellaneous (Lidoderm Patch Removal) 1 each MC DAILY@2200 [facility] Mupirocin (Bactroban Ointment (For Decolonization) -) 1 applic NS BID [facility] Stop: 05/02/18 21:59 Last Admin: 04/30/18 10:22 Dose: 1 applic Pantoprazole Sodium (Protonix Iv) 40 mg IVPUSH DAILY [facility] Last Admin: 04/30/18 10:13 Dose: 40 mg Valsartan (Diovan -) 40 mg PO DAILY [facility] Last Admin: 04/30/18 10:13 Dose: 40 mg - Objective Vital Signs: Vital Signs Temperature 99.1 F 04/30/18 06:00 Pulse Rate 86 04/30/18 06:00 Respiratory Rate 20 04/30/18 06:00 Blood Pressure 190/81 04/30/18 06:00 O2 Sat by Pulse Oximetry (%) 96 04/29/18 19:25 HENT: Yes: Atraumatic Neck: Yes: Supple, Trachea Midline Cardiovascular: Yes: Regular Rate and Rhythm, S1, S2 Respiratory: Yes: Diminished Gastrointestinal: Yes: Normal Bowel Sounds, Soft. No: Tenderness Edema: No Additional Findings/Remarks: - Review of Systems Constitutional: denies: Chills, Fever Cardiovascular: denies: Chest Pain, Shortness of Breath. denies: Palpitations Respiratory: denies: SOB, SOB on Exertion. denies: Cough, Hemoptysis, Orthopnea , PND Gastrointestinal: denies: Abdominal Pain, Constipation, Diarrhea, Melena, Nausea , Rectal Bleeding, Vomiting Musculoskeletal: (+) Joint Pain. denies: Back Pain Neurological: denies: Unsteady Gait, Weakness. denies: Dizziness, Headache, Seizure, Syncope Labs: CBC, BMP 04/30/18 05:30 04/30/18 05:30 Problem List - Problems (1) Acute on chronic systolic (congestive) heart failure Code(s): I50.23 - ACUTE ON CHRONIC SYSTOLIC (CONGESTIVE) HEART FAILURE (2) End stage renal disease Code(s): N18.6 - END STAGE RENAL DISEASE (3) Hyperlipidemia Code(s): E78.5 - HYPERLIPIDEMIA, UNSPECIFIED Qualifiers: Hyperlipidemia type: pure hypercholesterolemia Qualified Code(s): E78.00 - Pure hypercholesterolemia, unspecified; E78.0 - Pure hypercholesterolemia (4) Hypertensive cardiomyopathy Code(s): I11.9 - HYPERTENSIVE HEART DISEASE WITHOUT HEART FAILURE; I43 - CARDIOMYOPATHY IN DISEASES CLASSIFIED ELSEWHERE Qualifiers: Heart failure presence: with heart failure Qualified Code(s): I11.0 - Hypertensive heart disease with heart failure; I43 - Cardiomyopathy in diseases classified elsewhere (5) Ischemic cardiomyopathy Code(s): I25.5 - ISCHEMIC CARDIOMYOPATHY (6) CAD (coronary artery disease) Code(s): I25.10 - ATHSCL HEART DISEASE OF [place] CORONARY ARTERY W/O ANG PCTRS Qualifiers: Coronary Disease-Associated Artery/Lesion type: [place] artery [place] vs. transplanted heart: cherokee heart Associated angina: without angina Qualified Code(s): I25.10 - Atherosclerotic heart disease of [place] coronary artery without angina pectoris Assessment/Plan 1. Acute on chronic diastolic/systolic failure and pulmonary edema 2. Hypertensive urgency 3. Post acute hypoxic respiratory failure 4. CAD s/p [place], demand ischemic injury 5. Ischemic cardiomyopathy 6. Acute on Chronic Renal Failure requiring HD 7. Paroxysmal atrial fibrillation currently in sinus rhythm 8. Resolved Altered Mental Status r/o Hypertensive vs Uremic Encephalopathy PLAN: 1. Volume removal via UF/HD at the discretion of renal service and as needed 2. Continue Carvedilol 12.5 bid, Hydralazine 50 tid and Imdur 60 qd. Continue Lipitor 80 qd and Diovan 40 mg QD. Eventually Entresto can be used as outpatient 3. Continue Heparin gtt for now and resume Coumadin per INR when ready 4. Knee Xray was unremarkable but patient continuew to have pain. Further evaluation should follow to find etiology of this tenderness 5. Patient is to see Dr. Jeannette Kaiser at [facility] upon discharge for further cardiac care Further plans are to follow Johnathan Claros MD
[2018-04-30] MEDS: HEPARIN - 25,000 UNIT in SODIUM CHLORIDE 495 ML IV SCH ×2 (12:00→19:29)
--- NOTE | 2018-04-30 12:13 | PN ---
Teaching Attending Note Name of Resident: Song Rodriguez ATTENDING PHYSICIAN STATEMENT I saw and evaluated the patient. I reviewed the resident's note and discussed the case with the resident. I agree with the resident's findings and plan as documented. SUBJECTIVE: Pt seen and examined in the ICU. Still with left knee pain, limited x-ray unremarkable. Denies shortness of breath or chest pain. +productive cough. OBJECTIVE: Vital Signs Period Temp Pulse Resp BP Sys/Wyatt Pulse Ox Last 24 Hr 99.1 F-99.5 F 71-98 14-22 128-190/56-100 96-96 Intake & Output 04/27/18 04/28/18 04/29/18 04/30/18 23:59 23:59 23:59 23:59 Intake Total 760 1096.5 1552 382 Output Total 525 300 300 200 Balance 235 796.5 1252 182 Weight 58.06 kg 58.196 kg 57.294 kg 58.995 kg Gen: NAD at rest Heart: RRR Lung: decreased breath sounds at the bases Abd: soft, nontender Ext: no edema CBC, BMP 04/30/18 05:30 04/30/18 05:30 Active Medications Atorvastatin Calcium (Lipitor -) 80 mg PO HS [facility] Last Admin: 04/29/18 21:07 Dose: 80 mg Calcium Acetate (Phoslo -) 1,334 mg PO TIDCM [facility] Last Admin: 04/30/18 08:30 Dose: 1,334 mg Carvedilol (Coreg -) 12.5 mg PO BID [facility] Last Admin: 04/30/18 10:13 Dose: 12.5 mg Chlorhexidine Gluconate (Hibiclens For Decolonization -) 1 applic TP HS [facility] Last Admin: 04/29/18 21:09 Dose: 1 applic Heparin Sodium (Porcine) (Heparin -) 1,000 unit IVPUSH PRN PRN PRN Reason: Heparin Last Admin: 04/29/18 08:20 Dose: 1,000 unit Heparin Sodium (Porcine) (Heparin -) 5,000 unit IVPUSH PRN PRN PRN Reason: Heparin Hydralazine HCl (Apresoline -) 50 mg PO TID [facility] Last Admin: 04/30/18 05:48 Dose: 50 mg Heparin Sodium (Porcine) 25, (000 unit/ Sodium Chloride) 500 mls @ 16 mls/hr IV TITR [facility]; Protocol Last Titration: 04/29/18 20:48 Dose: 1,300 unit/hr, 26 mls/hr Cefepime HCl 0.5 gm/ Dextrose 100 mls @ 200 mls/hr IVPB DAILY [facility]; Protocol Last Admin: 04/30/18 10:21 Dose: 200 mls/hr Isosorbide Mononitrate (Imdur -) 60 mg PO DAILY [facility] Last Admin: 04/30/18 10:13 Dose: 60 mg Lidocaine HCl (Xylocaine 2% Viscous Oral -) 20 ml MM Q6HPO PRN PRN Reason: ORAL PAIN/MOUTH SORES Last Admin: 04/30/18 10:43 Dose: 20 ml Magnesium Oxide (Mag-Ox -) 400 mg PO DAILY [facility] Stop: 05/02/18 10:01 Last Admin: 04/30/18 10:19 Dose: 400 mg Miscellaneous (Lidoderm Patch Removal) 1 each MC DAILY@2200 [facility] Mupirocin (Bactroban Ointment (For Decolonization) -) 1 applic NS BID [facility] Stop: 05/02/18 21:59 Last Admin: 04/30/18 10:22 Dose: 1 applic Pantoprazole Sodium (Protonix Iv) 40 mg IVPUSH DAILY [facility] Last Admin: 04/30/18 10:13 Dose: 40 mg Valsartan (Diovan -) 40 mg PO DAILY [facility] Last Admin: 04/30/18 10:13 Dose: 40 mg ASSESSMENT AND PLAN: Altered Mental Status resolved s/p Acute Respiratory Failure Hypertensive Urgency resolved Hypertensive vs Uremic Encephalopathy improved Acute on Chronic Renal Failure requiring HD +Troponins likely demand ischemia Paroxysmal Atrial Fibrillation now in sinus Strep Bacteremia - complete antibiotics - HD per renal - monitor urine output, creatinine - will need permacath, d/w renal timing - taper FiO2 to keep SpO2 >90% - lidoderm patch to knee - pain control - BP control - PO as tolerated - DVT/GI prophylaxis - can monitor on telemetry
--- NOTE | 2018-04-30 12:17 | PN ---
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 c/o throat pain. PNA - Klebsiella/MRSA Streptococcal bacteremia Assessed with cookie with overtly good tolerance. Consider diet upgrade, as tolerated to soft,regular.
--- NOTE | 2018-04-30 13:00 | PN ---
Physical Exam: SUBJECTIVE: Patient seen and examined. Still c/o of L knee pain and swelling and sore throat. Had some anuria over the weekend, now c/o of dysuria but on AB. Was dialyzed monday after trialysis catheter. OBJECTIVE: Vital Signs Period Temp Pulse Resp BP Sys/Wyatt Pulse Ox Last 24 Hr 99.1 F-99.5 F 71-98 14-22 128-190/56-100 96-96 Vital Signs Temp 99.1 F 04/30/18 06:00 Pulse 86 04/30/18 06:00 Resp 20 04/30/18 06:00 BP 190/81 04/30/18 06:00 Pulse Ox 96 04/29/18 19:25 Intake & Output 04/29/18 04/30/18 04/30/18 23:59 11:59 23:59 Intake Total 1177 382 Output Total 300 200 Balance 877 182 Weight 58.995 kg Intake: IV 427 182 Heparin - 25,000 Unit In 427 182 Normal Saline - 495 ml @ 800 UNIT/HR 16 mls/hr IV TITR [facility] Rx#:[id number] IVPB 200 Oral 550 200 Output: Urine 300 200 Void 300 200 Other: Voiding Method Urinal # Unmeasured Voids Void 2 1 Bowel Movement Yes # Bowel Movements 1 Weight Measurement Method Built in [facility] GENERAL: The patient is awake, alert, and fully oriented, NC-3L ENT: Lip swelling improved. Dry mucus membrane LUNGS: reduced breath sounds, few crackles bases HEART: Irreg S1, S2 without murmur. ABDOMEN: Soft, nontender, nondistended, normoactive bowel sounds EXTREMITIES: 2+ pulses, warm, well-perfused, no edema. NEUROLOGICAL: AAO x3. Weak but able to move all limbs. Laboratory Results - last 24 hr 04/29/18 04/30/18 04/30/18 18:45 05:30 05:30 WBC 9.6 RBC 3.53 L Hgb 9.8 L Hct 30.2 L MCV 85.5 MCH 27.7 MCHC 32.4 RDW 17.2 H Plt Count 232 MPV 8.8 PTT (Actin FS) 78.1 H D 50.4 H D Sodium Potassium Chloride Carbon Dioxide Anion Gap BUN Creatinine Creat Clearance w eGFR Random Glucose Calcium Phosphorus Magnesium Total Bilirubin AST ALT Alkaline Phosphatase Total Protein Albumin 04/30/18 05:30 WBC RBC Hgb Hct MCV MCH MCHC RDW Plt Count MPV PTT (Actin FS) Sodium 139 Potassium 3.7 Chloride 98 Carbon Dioxide 28 Anion Gap 13 BUN 63 H Creatinine 8.7 H* Creat Clearance w eGFR 6.22 Random Glucose 80 Calcium 8.2 L Phosphorus 5.8 H Magnesium 1.9 Total Bilirubin 0.4 AST 25 ALT 20 Alkaline Phosphatase 93 Total Protein 5.6 L Albumin 1.9 L Active Medications Generic Name Dose Route Start Last Admin Trade Name Velq PRN Reason Stop Dose Admin Atorvastatin Calcium 80 mg 04/27/18 22:00 04/29/18 21:07 Lipitor - PO 80 mg HS [facility] Administration Calcium Acetate 1,334 mg 04/28/18 08:00 04/30/18 08:30 Phoslo - PO 1,334 mg TIDCM [facility] Administration Carvedilol 12.5 mg 04/27/18 14:25 04/30/18 10:13 Coreg - PO 12.5 mg BID [facility] Administration Chlorhexidine Gluconate 1 applic 04/27/18 22:00 04/29/18 21:09 Hibiclens For Decolonization - TP 1 applic HS [facility] Administration Heparin Sodium (Porcine) 1,000 unit 04/27/18 18:17 04/29/18 08:20 Heparin - IVPUSH 1,000 unit PRN PRN Administration Heparin Heparin Sodium (Porcine) 5,000 unit 04/27/18 18:17 Heparin - IVPUSH PRN PRN Heparin Hydralazine HCl 50 mg 04/27/18 14:22 04/30/18 05:48 Apresoline - PO 50 mg TID [facility] Administration Heparin Sodium (Porcine) 25, 500 mls @ 16 mls/hr 04/27/18 18:17 04/29/18 20: 48 000 unit/ Sodium Chloride IV 1,300 unit/hr TITR [facility] 26 mls/hr Titration Protocol 800 UNIT/HR Cefepime HCl 0.5 gm/ Dextrose 100 mls @ 200 mls/hr 04/28/18 13:00 04/30/18 10 :21 IVPB 200 mls/hr DAILY [facility] Administration Protocol Isosorbide Mononitrate 60 mg 04/28/18 10:00 04/30/18 10:13 Imdur - PO 60 mg DAILY [facility] Administration Lidocaine HCl 20 ml 04/30/18 09:08 04/30/18 10:43 Xylocaine 2% Viscous Oral - MM 20 ml Q6HPO PRN Administration ORAL PAIN/MOUTH SORES Magnesium Oxide 400 mg 04/30/18 10:00 04/30/18 10:19 Mag-Ox - PO 05/02/18 10:01 400 mg DAILY [facility] Administration Miscellaneous 1 each 04/30/18 22:00 Lidoderm Patch Removal MC DAILY@2200 [facility] Mupirocin 1 applic 04/27/18 22:00 04/30/18 10:22 Bactroban Ointment (For Decolonization) - NS 05/02/18 21:59 1 applic BID [facility] Administration Pantoprazole Sodium 40 mg 04/28/18 10:00 04/30/18 10:13 Protonix Iv IVPUSH 40 mg DAILY [facility] Administration Valsartan 40 mg 04/28/18 10:00 04/30/18 10:13 Diovan - PO 40 mg DAILY [facility] Administration Current Medications Atorvastatin Calcium (Lipitor -) 80 mg PO HS [facility] Last Admin: 04/30/18 21:50 Dose: 80 mg Calcium Acetate (Phoslo -) 1,334 mg PO TIDCM [facility] Last Admin: 04/30/18 17:27 Dose: 1,334 mg Carvedilol (Coreg -) 12.5 mg PO BID [facility] Last Admin: 04/30/18 10:13 Dose: 12.5 mg Chlorhexidine Gluconate (Hibiclens For Decolonization -) 1 applic TP HS [facility] Last Admin: 04/30/18 21:50 Dose: 1 applic Heparin Sodium (Porcine) (Heparin -) 1,000 unit IVPUSH PRN PRN PRN Reason: Heparin Last Admin: 04/29/18 08:20 Dose: 1,000 unit Heparin Sodium (Porcine) (Heparin -) 5,000 unit IVPUSH PRN PRN PRN Reason: Heparin Hydralazine HCl (Apresoline -) 50 mg PO TID [facility] Last Admin: 04/30/18 21:49 Dose: 50 mg Heparin Sodium (Porcine) 25, (000 unit/ Sodium Chloride) 500 mls @ 16 mls/hr IV TITR [facility]; Protocol Last Admin: 04/30/18 19:29 Dose: Not Given Cefepime HCl 0.5 gm/ Dextrose 100 mls @ 200 mls/hr IVPB DAILY [facility]; Protocol Last Admin: 04/30/18 10:21 Dose: 200 mls/hr Vancomycin HCl 1,250 mg/ (Dextrose) 250 mls @ 166.667 mls/hr IVPB TuThSa@1000 [facility] Nitroglycerin/Dextrose (Nitroglycerin 25mg/D5w 250ml) 25 mg in 250 mls @ 6 mls/ hr IVPB TITR [facility] Last Admin: 04/30/18 20:00 Dose: 10 mcg/min, 6 mls/hr Lidocaine HCl (Xylocaine 2% Viscous Oral -) 20 ml MM Q6HPO PRN PRN Reason: ORAL PAIN/MOUTH SORES Last Admin: 04/30/18 10:43 Dose: 20 ml Magnesium Oxide (Mag-Ox -) 400 mg PO DAILY [facility] Stop: 05/02/18 10:01 Last Admin: 04/30/18 10:19 Dose: 400 mg Miscellaneous (Lidoderm Patch Removal) 1 each MC DAILY@2200 [facility] Last Admin: 04/30/18 21:50 Dose: 1 each Mupirocin (Bactroban Ointment (For Decolonization) -) 1 applic NS BID [facility] Stop: 05/02/18 21:59 Last Admin: 04/30/18 21:49 Dose: 1 applic Pantoprazole Sodium (Protonix Iv) 40 mg IVPUSH DAILY [facility] Last Admin: 04/30/18 10:13 Dose: 40 mg Valsartan (Diovan -) 40 mg PO DAILY [facility] Last Admin: 04/30/18 10:13 Dose: 40 mg ASSESSMENT/PLAN: Lidocain swish and spit PT Speech and swallow Head CT: negative for intracranial bleed -ECHO 04/23/18: moderate to severe L ventricular systolic dysfunction Courtesy of Dr Mujica-per records from [facility]: January 17, 2015 R&LHc @ [facility]: 3 vessel CAD with 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, elevated right and left heart pressures January 19, 2015 Echo: Mod LVH moderate decreased LVEF 40% with AK inferior and inferoseptal, mild AR, MR, mild LAE January 22, 2015 Lexiscan Myoview: Dense scar inferior wall, large lateral ischemia, inferolateral AK, LVEF 30$ January 21, 2015 Rest and redistribution Thallium: Scar involving entire inferior wall, basal to mid inferolateral, basal inferoseptal, and apex, no significant hibernating myocardiaum, dilated LV with severely decreased LVEF 27% April 23, 2018 Echo: Moderately dilated with moderate decreased LV fxn, mild decreased RV fxn, mild AR, mild LAE ASSESSMENT/PLAN: 62 yo M h/o CKD stage 5 on HD, Acute on chronic diastolic/systolic failure, paroxysmal afib, CAD s/p LA admitted to ICU for acute metabolic encephalopathy secondary to hypertensive emergency and uremia, intubated, dialyzed, found to be bacteremic now on AB Sepsis Improved- low grade fever overnight On cefepime and vanco repeat blood cultures negative, 48hrs Trialysis catheter for HD monday For permacath tomorrow Afib Previously diagnosed in [facility] EKG 04/26/18- Afib Cont Heparin gtt Cardiology consult- Dr Mujica- apprec recs Cont carvedilol resume coumadin per INR once PC has been placed Acute Metabolic Encephalopathy - 2/2 hypertensive /uremic encephalopathy - Resolved -Pt extubated, tolerating well, on NC -OOB in to chair -PT Sore throat s/p extubation Cepachol lozenges- not helping -Lidocaine swish and spit Speech and swallow re-eval Dysphagia puree diet to be upgraded to soft regular/renal diet Uremia -Pt receiving HD -Pt got trialysis cath on monday - Vp Care Management on 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 recs -Phoslo 2tabs before meals - For permacath Hypertensive encephalopathy/CAD s/p LA - Blood pressure intermittently elevated -May improve with dialysis, pt making minimum urine -Pt presented with SBP of 200 -Pt was on ASA -Continue carvedilol 12.5 bid, hydralazine 50 tid, resume Imdur 60 qd (BiDil ) and Lipitor 80 qd, change norvasc to Diovan, eventual entresto as outpatient Acute hypoxic respiratory failure, Pt extubated Maintained on NC-3L to maintain sats Pulmonary edema- resolving ODILIA on CKD with uremic encephalopathy -Now stage 5 CKD on HD - unknown Cr baseline, h/o dialysis, been f/u as outpatient with group work program aide at [facility] - HD as needed - More permanent access pending Elevated troponin - Likely demand ischemia, or related to poor kidney function with poor excretion - peaked-0.45>>0.39 Acute on chronic diastolic/systolic failure Ischemic failure secondary to LA Pt had pulmonary edema in setting of hypertensive emergency with background fluid overload from CKD Not currently in exacerbation Cont hydralazine 50 tid, and carvedilol hold Imdur 60 qd (BiDil) prior to dialysis today eventual entresto as outpatient -to f/u with Dr. Jeannette Kaiser at [facility] upon d/c Dementia - aricept on hold BPH - flomax on Hold FEN - Hold IVF dialysis pt - Replete lytes PRN, or dialyze as needed Dispo: Tele transfer Visit type - Emergency Visit Emergency Visit: Yes ED Registration Date: 04/22/18 Care time: The patient presented to the Emergency Department on the above date and was hospitalized for further evaluation of their emergent condition. - New Patient This patient is new to me today: No - Critical Care Critical Care patient: No - Discharge Referral Referred to [facility] Med P.C.: No
--- NOTE | 2018-04-30 13:20 | PN ---
Progress Note, Physician History of Present Illness: stable no new issues remaining afebrile repeat cx are negative - Current Medication List Current Medications: Active Medications Atorvastatin Calcium (Lipitor -) 80 mg PO HS [facility] Last Admin: 04/29/18 21:07 Dose: 80 mg Calcium Acetate (Phoslo -) 1,334 mg PO TIDCM [facility] Last Admin: 04/30/18 08:30 Dose: 1,334 mg Carvedilol (Coreg -) 12.5 mg PO BID [facility] Last Admin: 04/30/18 10:13 Dose: 12.5 mg Chlorhexidine Gluconate (Hibiclens For Decolonization -) 1 applic TP HS [facility] Last Admin: 04/29/18 21:09 Dose: 1 applic Heparin Sodium (Porcine) (Heparin -) 1,000 unit IVPUSH PRN PRN PRN Reason: Heparin Last Admin: 04/29/18 08:20 Dose: 1,000 unit Heparin Sodium (Porcine) (Heparin -) 5,000 unit IVPUSH PRN PRN PRN Reason: Heparin Hydralazine HCl (Apresoline -) 50 mg PO TID [facility] Last Admin: 04/30/18 05:48 Dose: 50 mg Heparin Sodium (Porcine) 25, (000 unit/ Sodium Chloride) 500 mls @ 16 mls/hr IV TITR [facility]; Protocol Last Titration: 04/29/18 20:48 Dose: 1,300 unit/hr, 26 mls/hr Cefepime HCl 0.5 gm/ Dextrose 100 mls @ 200 mls/hr IVPB DAILY [facility]; Protocol Last Admin: 04/30/18 10:21 Dose: 200 mls/hr Vancomycin HCl 1,250 mg/ (Dextrose) 250 mls @ 166.667 mls/hr IVPB TuThSa@1000 [facility] Isosorbide Mononitrate (Imdur -) 60 mg PO DAILY [facility] Last Admin: 04/30/18 10:13 Dose: 60 mg Lidocaine HCl (Xylocaine 2% Viscous Oral -) 20 ml MM Q6HPO PRN PRN Reason: ORAL PAIN/MOUTH SORES Last Admin: 04/30/18 10:43 Dose: 20 ml Magnesium Oxide (Mag-Ox -) 400 mg PO DAILY [facility] Stop: 05/02/18 10:01 Last Admin: 04/30/18 10:19 Dose: 400 mg Miscellaneous (Lidoderm Patch Removal) 1 each DAILY@2200 [facility] Mupirocin (Bactroban Ointment (For Decolonization) -) 1 applic NS BID [facility] Stop: 05/02/18 21:59 Last Admin: 04/30/18 10:22 Dose: 1 applic Pantoprazole Sodium (Protonix Iv) 40 mg IVPUSH DAILY [facility] Last Admin: 04/30/18 10:13 Dose: 40 mg Valsartan (Diovan -) 40 mg PO DAILY [facility] Last Admin: 04/30/18 10:13 Dose: 40 mg - Objective Vital Signs: Vital Signs Temperature 99.1 F 04/30/18 06:00 Pulse Rate 86 04/30/18 06:00 Respiratory Rate 20 04/30/18 06:00 Blood Pressure 190/81 04/30/18 06:00 O2 Sat by Pulse Oximetry (%) 96 04/29/18 19:25 Constitutional: Yes: No Distress, Calm Cardiovascular: Yes: Regular Rate and Rhythm Respiratory: Yes: Other (poor air entry at the bases) Gastrointestinal: Yes: Normal Bowel Sounds, Soft Musculoskeletal: Yes: WNL Extremities: Yes: WNL Neurological: Yes: Alert, Oriented Psychiatric: Yes: Alert, Oriented Labs: CBC, BMP 04/30/18 05:30 04/30/18 05:30 INR, PTT INR 1.27 (0.82-1.09) H 04/26/18 23:30 Assessment/Plan Problem List - Problems (1) Acute on chronic systolic (congestive) heart failure Code(s): I50.23 - ACUTE ON CHRONIC SYSTOLIC (CONGESTIVE) HEART FAILURE (2) CAD (coronary artery disease) Code(s): I25.10 - ATHSCL HEART DISEASE OF [place] CORONARY ARTERY W/O ANG PCTRS Qualifiers: Coronary Disease-Associated Artery/Lesion type: [place] artery [place] vs. transplanted heart: [place] heart Associated angina: without angina Qualified Code(s): I25.10 - Atherosclerotic heart disease of [place] coronary artery without angina pectoris (3) End stage renal disease Code(s): N18.6 - END STAGE RENAL DISEASE (4) Hyperlipidemia Code(s): E78.5 - HYPERLIPIDEMIA, UNSPECIFIED Qualifiers: Hyperlipidemia type: pure hypercholesterolemia Qualified Code(s): E78.00 - Pure hypercholesterolemia, unspecified; E78.0 - Pure hypercholesterolemia (5) Hypertensive cardiomyopathy Code(s): I11.9 - HYPERTENSIVE HEART DISEASE WITHOUT HEART FAILURE; I43 - CARDIOMYOPATHY IN DISEASES CLASSIFIED ELSEWHERE Qualifiers: Heart failure presence: with heart failure Qualified Code(s): I11.0 - Hypertensive heart disease with heart failure; I43 - Cardiomyopathy in diseases classified elsewhere (6) Ischemic cardiomyopathy Code(s): I25.5 - ISCHEMIC CARDIOMYOPATHY (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 male admitted with SOB/Acute respiratory failure, Pulmonary congestion, Fever, with Femoral catheter in place Sepsis PNA - Klebsiella/MRSA Streptococcal bacteremia Persistent Fever Lt knee pain/mild swelling Renal Failure - now on HD CHF/Pulm edema Hypertensive urgency CAD s/p UT s/p hypoxic resp failure continue abx continue vanco during dialysis follow levels rest as per icu cc 40 min
--- NOTE | 2018-04-30 13:41 | PN ---
Progress Note (short form) - Note Progress Note: 62 WITH HTN ESRD LAST HD SAT CULTURE NEG NOW O/E RT IJ CHEST CLEAR ABD SOFE [id number] EXT NO EDEMA ODONNELL OUT LEFT KNEE POINT TENDERNESS POS BLOOD CULTURE WITH STREP SPUTIM FOR STAPH AND KLEBSIELLA HD TODAY VIA RT IJ 3 HR K3 TARGET 2 KG TO BE SEEN BY [facility] TO GET PERMCATH AND A PD CATHETER DC TRIALYSIS CATHETER ONCE HD DONE TODAY NEEDS PT OOB XRAY KNEE NEG CASE D/W ICU
--- NOTE | 2018-04-30 13:46 | PN ---
Physical Exam: SUBJECTIVE: Patient seen and examined. No acute events overnight. Complains of burning with urination. A febrile. on NC maintaining O2 sats. Hd planned for today OBJECTIVE: Vital Signs Period Temp Pulse Resp BP Sys/Wyatt Pulse Ox Last 24 Hr 99.1 F-99.5 F 71-98 16-22 128-190/56-100 96-96 GENERAL: awake, alert. comfortable in NAD EYES: PERRL, sclera anicteric, conjunctiva clear. ENT: oropharynx clear without exudates LUNGS: scattered rhonchi HEART: irregularly irregular. ABDOMEN: Soft, Nd, ND, +BS EXTREMITIES: 2+ pulses, warm, no edema Laboratory Results - last 24 hr 04/29/18 04/30/18 04/30/18 18:45 05:30 05:30 WBC 9.6 RBC 3.53 L Hgb 9.8 L Hct 30.2 L MCV 85.5 MCH 27.7 MCHC 32.4 RDW 17.2 H Plt Count 232 MPV 8.8 PTT (Actin FS) 78.1 H D 50.4 H D Sodium Potassium Chloride Carbon Dioxide Anion Gap BUN Creatinine Creat Clearance w eGFR Random Glucose Calcium Phosphorus Magnesium Total Bilirubin AST ALT Alkaline Phosphatase Total Protein Albumin 04/30/18 05:30 WBC RBC Hgb Hct MCV MCH MCHC RDW Plt Count MPV PTT (Actin FS) Sodium 139 Potassium 3.7 Chloride 98 Carbon Dioxide 28 Anion Gap 13 BUN 63 H Creatinine 8.7 H* Creat Clearance w eGFR 6.22 Random Glucose 80 Calcium 8.2 L Phosphorus 5.8 H Magnesium 1.9 Total Bilirubin 0.4 AST 25 ALT 20 Alkaline Phosphatase 93 Total Protein 5.6 L Albumin 1.9 L Active Medications Generic Name Dose Route Start Last Admin Trade Name Freq PRN Reason Stop Dose Admin Atorvastatin Calcium 80 mg 04/27/18 22:00 04/29/18 21:07 Lipitor - PO 80 mg HS [facility] Administration Calcium Acetate 1,334 mg 04/28/18 08:00 04/30/18 08:30 Phoslo - PO 1,334 mg TIDCM [facility] Administration Carvedilol 12.5 mg 04/27/18 14:25 04/30/18 10:13 Coreg - PO 12.5 mg BID [facility] Administration Chlorhexidine Gluconate 1 applic 04/27/18 22:00 04/29/18 21:09 Hibiclens For Decolonization - TP 1 applic HS [facility] Administration Heparin Sodium (Porcine) 1,000 unit 04/27/18 18:17 04/29/18 08:20 Heparin - IVPUSH 1,000 unit PRN PRN Administration Heparin Heparin Sodium (Porcine) 5,000 unit 04/27/18 18:17 Heparin - IVPUSH PRN PRN Heparin Hydralazine HCl 50 mg 04/27/18 14:22 04/30/18 05:48 Apresoline - PO 50 mg TID [facility] Administration Heparin Sodium (Porcine) 25, 500 mls @ 16 mls/hr 04/27/18 18:17 04/29/18 20: 48 000 unit/ Sodium Chloride IV 1,300 unit/hr TITR [facility] 26 mls/hr Titration Protocol 800 UNIT/HR Cefepime HCl 0.5 gm/ Dextrose 100 mls @ 200 mls/hr 04/28/18 13:00 04/30/18 10 :21 IVPB 200 mls/hr DAILY [facility] Administration Protocol Vancomycin HCl 1,250 mg/ 250 mls @ 166.667 mls/hr 05/01/18 10:00 Dextrose IVPB TuThSa@1000 [facility] Isosorbide Mononitrate 60 mg 04/28/18 10:00 04/30/18 10:13 Imdur - PO 60 mg DAILY [facility] Administration Lidocaine HCl 20 ml 04/30/18 09:08 04/30/18 10:43 Xylocaine 2% Viscous Oral - MM 20 ml Q6HPO PRN Administration ORAL PAIN/MOUTH SORES Magnesium Oxide 400 mg 04/30/18 10:00 04/30/18 10:19 Mag-Ox - PO 05/02/18 10:01 400 mg DAILY [facility] Administration Miscellaneous 1 each 04/30/18 22:00 Lidoderm Patch Removal [facility] DAILY@2200 [facility] Mupirocin 1 applic 04/27/18 22:00 04/30/18 10:22 Bactroban Ointment (For Decolonization) - NS 05/02/18 21:59 1 applic BID [facility] Administration Pantoprazole Sodium 40 mg 04/28/18 10:00 04/30/18 10:13 Protonix Iv IVPUSH 40 mg DAILY [facility] Administration Valsartan 40 mg 04/28/18 10:00 04/30/18 10:13 Diovan - PO 40 mg DAILY [facility] Administration ASSESSMENT/PLAN: NEURO #Acute toxic metabolic encephalopathy -resolved -likely secondary to a combination of hypertensive emergency and uremia -HD per renal with ultrafiltration -BP monitoring #Acute on Chronic CKD -HD as needed -s/pTrialysis Cath 04/28. Remove after HD. -Plan for permacath -Vascular consulted -monitor urine output, creatinine -Follow nephro reccs -avoid nephrotoxins -bladder scan neg PULM #Acute respiratory failure -resolved -Oxygen supplementation w/ 2L nasal cannula -keep SpO2 >90% CV #Hypertensive urgency -resolved -Cont. coreg 12.5mg BID, Amlodipine 10mg, Hydralazine 50 TID -BP monitoring -ECHO: moderate to severe L ventricular systolic dysfunction #Afib -Heparin gtt -patient says he has history of A-fib and was on coumadin. -cont. Coreg 12.5 BID ID -Now afebrile -Repeat cultures negative -IV abx Day 6: Vancomycin, Cefepime MSK #L knee pain -xray negative -uric acid FEN -No iv fluids -monitor lytes -dysphagia puree PPX -hep gtt -protonix iv Transfer to Tele Visit type - Emergency Visit Emergency Visit: Yes ED Registration Date: 04/22/18 Care time: The patient presented to the Emergency Department on the above date and was hospitalized for further evaluation of their emergent condition. - New Patient This patient is new to me today: Yes Date on this admission: 04/30/18 - Critical Care Critical Care patient: Yes Total Critical Care Time (in minutes): 40 Critical Care Statement: The care of this patient involved high complexity decision making to prevent further life threatening deterioration of the patient 's condition and/or to evaluate & treat vital organ system(s) failure or risk of failure.
[2018-04-30] MEDS ORDERED: EPOETIN ALFA 10,000 UNIT/1 ML VIAL SQ ONE (14:30)
--- NOTE | 2018-04-30 17:46 | CON.ORTH ---
Consult Consult Specialty:: orthopedics - History of Present Illness History of Present Illness: pt is 62y M admitted to ICU for uremia/hypertensive crisis -upon improved cognition notes to have L knee pain -pain felt anterior -worse to even light touch or any motion -not improving to this point -no previous knee injury or pain - Past Medical History WEED THINNER: Yes: Dementia Cardio/Vascular: Yes: CAD, CHF, Hyperlipdemia, [place] Pulmonary: No: Asthma, Bronchitis, Cancer, COPD, O2 Dependent, Pneumonia, Previously Intubated, Pulmonary Embolus, Pulmonary Fibrosis, Sleep Apnea, Other Renal/: Yes: Renal Failure - Alcohol/Substance Use Hx Alcohol Use: No - Smoking History Smoking history: Unknown if ever smoked Have you smoked in the past 12 months: No - Social History Usual Living Arrangement: With Spouse ADL: Independent Home Medications - Allergies Allergies/Adverse Reactions: Allergies Allergy/AdvReac Type Severity Reaction Status Date / Time No Known Allergies Allergy Verified 04/22/18 14:21 - Home Medications Home Medications: Ambulatory Orders Amlodipine Besylate [Norvasc -] 10 mg PO DAILY 04/22/18 Aspirin Coated [Ecotrin -] 81 mg PO DAILY 04/22/18 Carvedilol [Coreg -] 12.5 mg PO BID 04/22/18 Donepezil HCl [Aricept -] 10 mg PO DAILY 04/22/18 Hydralazine HCl 50 mg PO TID 04/22/18 Tamsulosin HCl [Flomax] 0.4 mg PO DAILY 04/22/18 Atorvastatin Calcium 80 mg PO DAILY 04/23/18 Calcium Acetate [Phoslo -] 667 mg PO TIDCM 04/23/18 Isosorbide Mononitrate [Isosorbide Mononitrate ER] 60 mg PO DAILY 04/23/18 Sodium Bicarbonate - 650 mg PO TID 04/23/18 Physical Exam for Ortho Vital Signs: Vital Signs Temperature 99.3 F 04/30/18 14:00 Pulse Rate 76 04/30/18 17:00 Respiratory Rate 18 04/30/18 17:00 Blood Pressure 193/88 04/30/18 17:00 O2 Sat by Pulse Oximetry (%) 96 04/30/18 10:00 Constitutional: Yes: Well Nourished, No Distress, Calm Cardiovascular: Yes: Regular Rate and Rhythm Respiratory: Yes: Regular Extremities: Yes: Other (LLE - there is a 1cm area superior and slightly lateral over the prepatellar bursa which is minimally indurated and has hyperesthesia. There is no fluctuance. No effusion. ROM 0-80. No joint line tenderness. NV exam intact.) Labs: CBC, BMP 04/30/18 05:30 04/30/18 05:30 INR, PTT INR 1.27 (0.82-1.09) H 04/26/18 23:30 Imaging - Results X-ray: Report Reviewed, Image Reviewed (single AP view shows no pathology) Problem List - Problems (1) Left anterior knee pain Assessment/Plan: I reviewed today's findindings with the patient -pt has focal tenderness and mild swelling over the bursa -may represent contusion/small hematoma -less likely cellulitis -given lack of any fluid collection and lack of joint involvement no need for aspiration or drainage -can start PT for ROM -please reconsult if not improving in the next several days Code(s): M25.562 - PAIN IN LEFT KNEE
[2018-04-30] MEDS ORDERED: CARVEDILOL 25 MG TABLET (FP) PO ONE (19:10)
[2018-04-30] MEDS ORDERED: hydrALAZINE HCL 20 MG/ML VIAL IVPUSH ONE (19:11)
[2018-04-30] MEDS ORDERED: hydrALAZINE HCL 20 MG/ML VIAL ONE (19:24)
[2018-04-30] MEDS ORDERED: ACETAMINOPHEN 325 MG TABLET (FP) ONE (19:25)
[2018-04-30] MEDS ORDERED: NITROPRUSSIDE SODIUM 50,000 MCG in SODIUM CHLORIDE 248 ML IVPB SCH (19:45)
[2018-04-30] MEDS ORDERED: NITROGLYCERIN 25MG/D5W 250ML 25 MG/250 ML ML IVPB ONE (19:45)
[2018-04-30] MEDS ORDERED: NITROGLYCERIN 25MG/D5W 250ML 25 MG/250 ML ML IVPB SCH (20:00)
[2018-04-30] MEDS: LIDOCAINE PATCH REMOVAL MC SCH (21:50)
[2018-04-30] MEDS: CHLORHEXIDINE GLUCONATE 4% CLEANSER FOR DECOLONIZATION TP SCH (21:50)
[2018-04-30] MEDS: ATORVASTATIN CA 80 MG TABLET (FP) PO SCH (21:50)
[2018-05-01 06:14] LABS: HEMOGLOBIN 9.6 GM/dL (11.7-16.9); MCH 27.7 pg (25.7-33.7); MCHC 31.9 g/dl (32.0-35.9); MEAN CELL VOLUME 86.7 fl (80-96); PLATELET COUNT 273 K/MM3 (134-434); RBC 3.47 M/mm3 (4.00-5.60); RDW 17.4 % (11.9-15.9); WHITE BLOOD COUNT 15.9 K/mm3 (4.0-10.0)
[2018-05-01] MEDS: hydrALAZINE HCL 50 MG TABLET (FP) PO SCH ×3 (06:30→22:15)
[2018-05-01 06:47] LABS: ALBUMIN 1.9 g/dl (3.4-5.0); ALK PHOS 94 U/L (45-117); ANION GAP 9 (8-16); BILIRUBIN,TOTAL 0.4 mg/dL (0.2-1.0); BLOOD UREA NITROGEN 34 mg/dL (7-18); CALCIUM 8.4 mg/dL (8.5-10.1); CHLORIDE 96 mmol/L (98-107); CO2 31 mmol/L (21-32); CREATININE 5.6 mg/dL (0.7-1.3); GLUCOSE,RANDOM 84 mg/dL (74-106); MAGNESIUM 1.8 mg/dL (1.8-2.4); PHOSPHOROUS 4.1 mg/dL (2.5-4.9); POTASSIUM 4.2 mmol/L (3.5-5.1); SGOT/AST 20 U/L (15-37); SGPT/ALT 21 U/L (12-78); SODIUM 136 mmol/L (136-145); TOT PROT 5.7 g/dl (6.4-8.2)
--- NOTE | 2018-05-01 07:10 | PN ---
Progress Note (short form) - Note Progress Note: Chief Complaint: Events noted, notes reviewed, recurrent pulmonary edema in context of hypertensive urgency, patient had HD yesterday, currently denies any chest pain bur reports dyspnea Seen and examined in the ICU. Events noted, notes reviewed, recurrent pulmonary edema in context of hypertensive urgency, patient had HD yesterday, currently denies any chest pain bur reports dyspnea - Current Medication List Current Medications: Active Medications Current Medications Atorvastatin Calcium (Lipitor -) 80 mg PO HS [facility] Last Admin: 04/30/18 21:50 Dose: 80 mg Calcium Acetate (Phoslo -) 1,334 mg PO TIDCM [facility] Last Admin: 04/30/18 17:27 Dose: 1,334 mg Carvedilol (Coreg -) 12.5 mg PO BID [facility] Last Admin: 04/30/18 10:13 Dose: 12.5 mg Chlorhexidine Gluconate (Hibiclens For Decolonization -) 1 applic TP HS [facility] Last Admin: 04/30/18 21:50 Dose: 1 applic Heparin Sodium (Porcine) (Heparin -) 1,000 unit IVPUSH PRN PRN PRN Reason: Heparin Last Admin: 04/29/18 08:20 Dose: 1,000 unit Heparin Sodium (Porcine) (Heparin -) 5,000 unit IVPUSH PRN PRN PRN Reason: Heparin Hydralazine HCl (Apresoline -) 50 mg PO TID [facility] Last Admin: 05/01/18 06:30 Dose: 50 mg Heparin Sodium (Porcine) 25, (000 unit/ Sodium Chloride) 500 mls @ 16 mls/hr IV TITR [facility]; Protocol Last Admin: 04/30/18 19:29 Dose: Not Given Cefepime HCl 0.5 gm/ Dextrose 100 mls @ 200 mls/hr IVPB DAILY [facility]; Protocol Last Admin: 04/30/18 10:21 Dose: 200 mls/hr Vancomycin HCl 1,250 mg/ (Dextrose) 250 mls @ 166.667 mls/hr IVPB TuThSa@1000 [facility] Nitroglycerin/Dextrose (Nitroglycerin 25mg/D5w 250ml) 25 mg in 250 mls @ 6 mls/ hr IVPB TITR [facility] Last Admin: 04/30/18 20:00 Dose: 10 mcg/min, 6 mls/hr Lidocaine HCl (Xylocaine 2% Viscous Oral -) 20 ml MM Q6HPO PRN PRN Reason: ORAL PAIN/MOUTH SORES Last Admin: 04/30/18 10:43 Dose: 20 ml Magnesium Oxide (Mag-Ox -) 400 mg PO DAILY [facility] Stop: 05/02/18 10:01 Last Admin: 04/30/18 10:19 Dose: 400 mg Miscellaneous (Lidoderm Patch Removal) 1 each [facility] DAILY@2200 [facility] Last Admin: 04/30/18 21:50 Dose: 1 each Mupirocin (Bactroban Ointment (For Decolonization) -) 1 applic NS BID [facility] Stop: 05/02/18 21:59 Last Admin: 04/30/18 21:49 Dose: 1 applic Pantoprazole Sodium (Protonix Iv) 40 mg IVPUSH DAILY [facility] Last Admin: 04/30/18 10:13 Dose: 40 mg Valsartan (Diovan -) 40 mg PO DAILY [facility] Last Admin: 04/30/18 10:13 Dose: 40 mg - Review of Systems Constitutional: denies: Chills, Fever Cardiovascular: As noted above Respiratory: denies: Cough or Hemoptysis Gastrointestinal: denies: Abdominal Pain, Constipation, Diarrhea, Melena, Nausea , Rectal Bleeding, Vomiting Musculoskeletal: denies: Back Pain Neurological: denies: Unsteady Gait, Weakness. denies: Dizziness, Headache, Seizure, Syncope - Objective Vital Signs: Last Vital Signs Temp Pulse Resp BP Pulse Ox 98.9 F 92 H 24 180/70 100 05/01/18 06:00 05/01/18 06:00 05/01/18 06:00 05/01/18 06:00 04/30/18 23:44 HEENT: Atraumatic Neck: Supple Cardiovascular: S1 S2 Regular Rate and Rhythm Respiratory: Diminished Breath Sounds at the Bases Gastrointestinal: Soft Benign Normal Bowel Sounds Ext: No Edema Labs: CBC, BMP 05/01/18 05:30 05/01/18 05:30 Assessment/Plan 1. Acute on chronic class II-III NYHA classification systolic/diastolic LV failure with recurrent pulmonary edema, precipitated by hypertensive urgency 2. Hypertensive urgency, recurrent to exclude renal artery stenosis 3. Post acute hypoxic respiratory failure 4. CAD post [place] angina pectoris with demand ischemic injury 5. Ischemic cardiomyopathy 6. Acute on Chronic Renal Failure requiring HD 7. Paroxysmal atrial fibrillation currently in sinus rhythm 8. Anemia 9. Altered mental status, resolved PLAN: 1. HD as per renal service 2. Continue Carvedilol and titrate dosage 3. Continue Hydralazine and Imdur (BiDil) 4. Initiate Entresto (can be initiated as inpatient) in substitution for Diovan in view his recurrent clinical presentation and underlying LV dysfunction 5. Continue Lipitor 6. Continue Heparin for now and resume Coumadin as per INR once no additional intervention is planned 7. Renal arterial Doppler to R/O renal artery stenosis 8. Patient is to F/U with Dr. Jeannette Kaiser/cardiology at [facility] upon discharge for further cardiac care Víctor Adams MD
[2018-05-01] MEDS: CALCIUM ACETATE 667 MG CAPSULE (FP) PO SCH ×3 (07:41→16:40)
--- NOTE | 2018-05-01 08:13 | SPA.PREOP ---
- PRE-OP NOTE Dx: ESRD Planned Procedure: Permacath and Peritoneal Dialysis Catheter insertion Surgeon: Suraj Russ Consent: To be obtained by surgeon after risks, benefits and alternatives explained to patient. Last Vital Signs Temp Pulse Resp BP Pulse Ox 98.9 F 88 24 180/70 100 05/01/18 06:00 05/01/18 07:14 05/01/18 06:00 05/01/18 06:00 05/01/18 07:14 Lab Results WBC 15.9 K/mm3 (4.0-10.0) H 05/01/18 05:30 RBC 3.47 M/mm3 (4.00-5.60) L 05/01/18 05:30 Hgb 9.6 GM/dL (11.7-16.9) L 05/01/18 05:30 Hct 30.0 % (35.4-49) L 05/01/18 05:30 MCV 86.7 fl (80-96) 05/01/18 05:30 MCHC 31.9 g/dl (32.0-35.9) L 05/01/18 05:30 RDW 17.4 % (11.9-15.9) H 05/01/18 05:30 Plt Count 273 K/MM3 (134-434) 05/01/18 05:30 Sodium 136 mmol/L (136-145) 05/01/18 05:30 Potassium 4.2 mmol/L (3.5-5.1) 05/01/18 05:30 Chloride 96 mmol/L (98-107) L 05/01/18 05:30 Carbon Dioxide 31 mmol/L (21-32) 05/01/18 05:30 Anion Gap 9 (8-16) 05/01/18 05:30 BUN 34 mg/dL (7-18) H D 05/01/18 05:30 Creatinine 5.6 mg/dL (0.7-1.3) H 05/01/18 05:30 Random Glucose 84 mg/dL (74-106) 05/01/18 05:30 Calcium 8.4 mg/dL (8.5-10.1) L 05/01/18 05:30 Blood Type O POSITIVE 04/22/18 16:40 Antibody Screen Negative 04/22/18 13:55 INR 1.27 (0.82-1.09) H 04/26/18 23:30 - ASSESSMENT/PLAN Problem List - Problems (1) End stage renal disease Assessment/Plan: 1. Make NPO after midnight except po meds 2. GI/DVT PPX 3. Medical optimization / clearance Code(s): N18.6 - END STAGE RENAL DISEASE Visit type - Case Type Case Type: ED Admission
--- NOTE | 2018-05-01 08:28 | PN ---
Physical Exam: SUBJECTIVE: Patient seen and examined. Had flash pulm edema with hypertension up to 200/120 overnight requiring nitrodrip. Unable to get arthrocentesis yesterday because no fluid. Still c/o of sore throat. No fevers overnight. On vanc and cefepime. Received hemodialysis. OBJECTIVE: Vital Signs Period Temp Pulse Resp BP Sys/Wyatt Pulse Ox Last 24 Hr 98.4 F-99.3 F 72-111 15-27 131-225/68-109 92-100 Vital Signs Temp 99.3 F 05/01/18 14:00 Pulse 84 05/01/18 14:00 Resp 20 05/01/18 14:00 BP 154/68 05/01/18 14:00 Pulse Ox 96 05/01/18 13:56 Intake & Output 04/30/18 05/01/18 05/01/18 23:59 11:59 23:59 Intake Total 362 620 394 Output Total 50 40 Balance 312 620 354 Weight 59.783 kg Intake: IV 312 420 234 Heparin - 25,000 Unit In 312 276 234 Normal Saline - 495 ml @ 800 UNIT/HR 16 mls/hr IV TITR [facility] Rx#:[id number] NITROGLYCERIN 25MG/D5W 144 0 250ML 25 mg In 250 ml @ 10 MCG/MIN 6 mls/hr IVPB TITR [facility] Rx#:[id number] IVPB 100 Oral 50 100 160 Output: Urine 50 40 Void 50 40 Other: Voiding Method Urinal Urinal # Unmeasured Voids Void 1 1 1 Bowel Movement Yes Yes: large brown well-formed # Bowel Movements 1 1 Body Mass Index (BMI) 18.8 Weight Measurement Method Built in [facility] GENERAL: The patient is awake, alert, and fully oriented, on NC ENT: Improved lip swelling. NECK: RIJ LUNGS: Breath sounds equal, clear to auscultation bilaterally, no wheezes, no crackles, no accessory muscle use. HEART: Regular rate and rhythm, S1, S2 ABDOMEN: Soft, nontender, nondistended, normoactive bowel sounds, no guarding, no rebound, no hepatosplenomegaly, no masses. EXTREMITIES: 2+ pulses, warm, well-perfused, no edema. NEUROLOGICAL: Cranial nerves II through XII grossly intact. Normal speech, gait not observed. PSYCH: Normal mood, normal affect. SKIN: Warm, dry, normal turgor, no rashes or lesions noted Laboratory Results - last 24 hr 04/30/18 04/30/18 05/01/18 06:00 14:30 05:30 WBC 15.9 H RBC 3.47 L Hgb 9.6 L Hct 30.0 L MCV 86.7 MCH 27.7 MCHC 31.9 L RDW 17.4 H Plt Count 273 MPV 9.0 PTT (Actin FS) Sodium Potassium Chloride Carbon Dioxide Anion Gap BUN Creatinine Creat Clearance w eGFR Random Glucose Uric Acid 5.1 Calcium Phosphorus Magnesium Total Bilirubin AST ALT Alkaline Phosphatase Total Protein Albumin Random Vancomycin 22.65 05/01/18 05/01/18 05:30 05:30 WBC RBC Hgb Hct MCV MCH MCHC RDW Plt Count MPV PTT (Actin FS) 49.6 H Sodium 136 Potassium 4.2 Chloride 96 L Carbon Dioxide 31 Anion Gap 9 BUN 34 H D Creatinine 5.6 H Creat Clearance w eGFR 10.34 Random Glucose 84 Uric Acid Calcium 8.4 L Phosphorus 4.1 D Magnesium 1.8 Total Bilirubin 0.4 AST 20 ALT 21 Alkaline Phosphatase 94 Total Protein 5.7 L Albumin 1.9 L Random Vancomycin Active Medications Generic Name Dose Route Start Last Admin Trade Name Freq PRN Reason Stop Dose Admin Atorvastatin Calcium 80 mg 04/27/18 22:00 04/30/18 21:50 Lipitor - PO 80 mg HS [facility] Administration Calcium Acetate 1,334 mg 04/28/18 08:00 05/01/18 07:41 Phoslo - PO 1,334 mg TIDCM [facility] Administration Carvedilol 25 mg 05/01/18 10:00 Coreg - PO BID [facility] Chlorhexidine Gluconate 1 applic 04/27/18 22:00 04/30/18 21:50 Hibiclens For Decolonization - TP 1 applic HS [facility] Administration Heparin Sodium (Porcine) 1,000 unit 04/27/18 18:17 04/29/18 08:20 Heparin - IVPUSH 1,000 unit PRN PRN Administration Heparin Heparin Sodium (Porcine) 5,000 unit 04/27/18 18:17 Heparin - IVPUSH PRN PRN Heparin Hydralazine HCl 50 mg 04/27/18 14:22 05/01/18 06:30 Apresoline - PO 50 mg TID [facility] Administration Heparin Sodium (Porcine) 25, 500 mls @ 16 mls/hr 04/27/18 18:17 04/30/18 19: 29 000 unit/ Sodium Chloride IV Not Given TITR [facility] Protocol 800 UNIT/HR Cefepime HCl 0.5 gm/ Dextrose 100 mls @ 200 mls/hr 04/28/18 13:00 04/30/18 10 :21 IVPB 200 mls/hr DAILY [facility] Administration Protocol Vancomycin HCl 1,250 mg/ 250 mls @ 166.667 mls/hr 05/01/18 10:00 Dextrose IVPB TuThSa@1000 [facility] Isosorbide Mononitrate 60 mg 05/01/18 10:00 Imdur - PO DAILY [facility] Lidocaine HCl 20 ml 04/30/18 09:08 04/30/18 10:43 Xylocaine 2% Viscous Oral - MM 20 ml Q6HPO PRN Administration ORAL PAIN/MOUTH SORES Magnesium Oxide 400 mg 04/30/18 10:00 04/30/18 10:19 Mag-Ox - PO 05/02/18 10:01 400 mg DAILY [facility] Administration Miscellaneous 1 each 04/30/18 22:00 04/30/18 21:50 Lidoderm Patch Removal MC 1 each DAILY@2200 [facility] Administration Mupirocin 1 applic 04/27/18 22:00 04/30/18 21:49 Bactroban Ointment (For Decolonization) - NS 05/02/18 21:59 1 applic BID [facility] Administration Pantoprazole Sodium 40 mg 04/28/18 10:00 04/30/18 10:13 Protonix Iv IVPUSH 40 mg DAILY [facility] Administration Sacubitril/Valsartan 1 tab 05/01/18 10:00 Entresto 49 Mg-51 Mg Tablet PO BID [facility] Current Medications Atorvastatin Calcium (Lipitor -) 80 mg PO HS [facility] Last Admin: 04/30/18 21:50 Dose: 80 mg Calcium Acetate (Phoslo -) 1,334 mg PO TIDCM [facility] Last Admin: 05/01/18 07:41 Dose: 1,334 mg Carvedilol (Coreg -) 25 mg PO BID [facility] Chlorhexidine Gluconate (Hibiclens For Decolonization -) 1 applic TP HS [facility] Last Admin: 04/30/18 21:50 Dose: 1 applic Heparin Sodium (Porcine) (Heparin -) 1,000 unit IVPUSH PRN PRN PRN Reason: Heparin Last Admin: 04/29/18 08:20 Dose: 1,000 unit Heparin Sodium (Porcine) (Heparin -) 5,000 unit IVPUSH PRN PRN PRN Reason: Heparin Hydralazine HCl (Apresoline -) 50 mg PO TID [facility] Last Admin: 05/01/18 06:30 Dose: 50 mg Heparin Sodium (Porcine) 25, (000 unit/ Sodium Chloride) 500 mls @ 16 mls/hr IV TITR [facility]; Protocol Last Admin: 04/30/18 19:29 Dose: Not Given Cefepime HCl 0.5 gm/ Dextrose 100 mls @ 200 mls/hr IVPB DAILY [facility]; Protocol Last Admin: 04/30/18 10:21 Dose: 200 mls/hr Vancomycin HCl 1,250 mg/ (Dextrose) 250 mls @ 166.667 mls/hr IVPB TuThSa@1000 [facility] Isosorbide Mononitrate (Imdur -) 60 mg PO DAILY [facility] Lidocaine HCl (Xylocaine 2% Viscous Oral -) 20 ml MM Q6HPO PRN PRN Reason: ORAL PAIN/MOUTH SORES Last Admin: 04/30/18 10:43 Dose: 20 ml Magnesium Oxide (Mag-Ox -) 400 mg PO DAILY [facility] Stop: 05/02/18 10:01 Last Admin: 04/30/18 10:19 Dose: 400 mg Miscellaneous (Lidoderm Patch Removal) 1 each MC DAILY@2200 [facility] Last Admin: 04/30/18 21:50 Dose: 1 each Mupirocin (Bactroban Ointment (For Decolonization) -) 1 applic NS BID [facility] Stop: 05/02/18 21:59 Last Admin: 04/30/18 21:49 Dose: 1 applic Pantoprazole Sodium (Protonix Iv) 40 mg IVPUSH DAILY [facility] Last Admin: 04/30/18 10:13 Dose: 40 mg Sacubitril/Valsartan (Entresto 49 Mg-51 Mg Tablet) 1 tab PO BID [facility] Head CT: negative for intracranial bleed -ECHO 04/23/18: moderate to severe L ventricular systolic dysfunction Courtesy of Dr Mujica-per records from [facility]: January 17, 2015 R&LHc @ [facility]: 3 vessel CAD with [employer] RVA and OM2, elevated right and left heart pressures January 19, 2015 Echo: Mod LVH moderate decreased LVEF 40% with AK inferior and inferoseptal, mild AR, MR, mild LAE January 22, 2015 Lexiscan Myoview: Dense scar inferior wall, large lateral ischemia, inferolateral AK, LVEF 30$ January 21, 2015 Rest and redistribution Thallium: Scar involving entire inferior wall, basal to mid inferolateral, basal inferoseptal, and apex, no significant hibernating myocardiaum, dilated LV with severely decreased LVEF 27% April 23, 2018 Echo: Moderately dilated with moderate decreased LV fxn, mild decreased RV fxn, mild AR, mild LAE ASSESSMENT/PLAN: 62 yo M h/o CKD stage 5 on HD, Acute on chronic diastolic/systolic failure, paroxysmal afib, CAD s/p [place] admitted to ICU for acute metabolic encephalopathy secondary to hypertensive emergency and uremia, intubated, dialyzed, found to be bacteremic now on AB Flash pulmonary edema SOB, with marked elevated BP Received high flow, CPAP Received nitroglycerin R/O renal a stenosis- duplex USS Per Dr Adams- Thomas added- (Diovan)ARB removed Carvedilol 25mg bid -instead of 12.5mg bid ODILIA on CKD with uremic encephalopathy -Now stage 5 CKD on HD - unknown Cr baseline, h/o dialysis, been f/u as outpatient with adoption social worker at [facility] - HD as needed - More permanent access pending Sepsis Improved- low grade fever overnight On cefepime and vanco repeat blood cultures negative, Trialysis catheter for HD monday For permacath tomorrow Afib Previously diagnosed in [facility] EKG 04/26/18- Afib Cont Heparin gtt Cardiology consult- Dr Mujica- apprec recs Cont carvedilol resume coumadin per INR once PC has been placed Knee pain Pt still c/o of pain Swelling improved Acute Metabolic Encephalopathy - 2/2 hypertensive /uremic encephalopathy - Resolved -Pt extubated, tolerating well, on NC -OOB in to chair -PT Sore throat s/p extubation (04/26/18) Lidocaine swish and spit Speech and swallow re-eval Dysphagia puree diet to be upgraded to soft regular/renal diet Uremia -Pt receiving HD -Pt got trialysis cath on monday (04/28/18) - [employer] Supervisor on 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 recs -Phoslo 2tabs before meals - For permacath Hypertensive encephalopathy/CAD s/p [place] - Blood pressure intermittently elevated -May improve with dialysis, pt making minimum urine -Pt presented with SBP of 200 -Pt was on ASA -Continue carvedilol 25mg bid, hydralazine 50 tid, resume Imdur 60 qd (BiDil ) and Lipitor 80 qd, Diovan, changed to entresto Acute hypoxic respiratory failure, Pt extubated Maintained on NC-3L to maintain sats Pulmonary edema- resolving Elevated troponin - Likely demand ischemia, or related to poor kidney function with poor excretion - peaked-0.45>>0.39 Acute on chronic diastolic/systolic failure Ischemic failure secondary to [place] Pt had pulmonary edema in setting of hypertensive emergency with background fluid overload from CKD Not currently in exacerbation Cont hydralazine 50 tid, and carvedilol hold Imdur 60 qd (BiDil) prior to dialysis today eventual entresto as outpatient -to f/u with Dr. Jeannette Kaiser at [facility] upon d/c Dementia - aricept on hold BPH - Resumed flomax FEN - Hold IVF dialysis pt - Replete lytes PRN, or dialyze as needed Dispo: Tele transfer Visit type - Emergency Visit Emergency Visit: Yes ED Registration Date: 04/22/18 Care time: The patient presented to the Emergency Department on the above date and was hospitalized for further evaluation of their emergent condition. - New Patient This patient is new to me today: No - Critical Care Critical Care patient: Yes Total Critical Care Time (in minutes): 40 Critical Care Statement: The care of this patient involved high complexity decision making to prevent further life threatening deterioration of the patient 's condition and/or to evaluate & treat vital organ system(s) failure or risk of failure. - Discharge Referral Referred to [facility] Med [facility] No
[2018-05-01] MEDS: CARVEDILOL 25 MG TABLET (FP) PO SCH ×3 (09:17→22:15)
[2018-05-01] MEDS: ISOSORBIDE MONONITRATE 60 MG TAB.SR.24H (FP) PO SCH (09:31)
[2018-05-01] MEDS: CEFEPIME 0.5 GM in DEXTROSE 5%-WATER - 100 ML IVPB SCH (09:31)
[2018-05-01] MEDS: MAGNESIUM OXIDE 400 MG TABLET (FP) PO SCH (09:32)
[2018-05-01] MEDS: LIDOCAINE VISCOUS 2% ORAL/TOP 20 ML UNIT-DOSE CUP MM PRN (09:32)
[2018-05-01] MEDS: PANTOPRAZOLE SODIUM 40 MG VIAL IVPUSH SCH (09:32)
[2018-05-01] MEDS: MUPIROCIN 2% TOPICAL OINTMENT FOR DECOLONIZATION NS SCH ×2 (11:00→22:12)
[2018-05-01 11:03] LABS: URINE APPEARANCE CLEAR; URINE BILIRUBIN NEGATIVE (<2.0 mg/dL); URINE COLOR LTYELLOW; URINE GLUCOSE (UA) 1+ (NEGATIVE); URINE KETONE NEGATIVE (NEGATIVE); URINE LEUK ESTERASE NEGATIVE (NEGATIVE); URINE NITRITE NEGATIVE (NEGATIVE); URINE UROBILINOGEN NEGATIVE mg/dL (0.2-1.0)
[2018-05-01] MEDS: SACUBITRIL/VALSARTAN 49 MG-51 MG TABLET PO SCH ×2 (11:03→22:17)
[2018-05-01 11:05] LABS: URINE PROTEIN 2+ (NEGATIVE)
[2018-05-01] MEDS ORDERED: METOPROLOL TARTRATE 5 MG/5 ML VIAL ONE (11:23)
[2018-05-01 11:30] LABS: EPI CELLS RARE /HPF (FEW)
[2018-05-01] MEDS ORDERED: METOPROLOL TARTRATE 5 MG/5 ML VIAL IVPUSH ONE (11:30)
--- NOTE | 2018-05-01 12:31 | PN ---
Teaching Attending Note Name of Resident: Song Rodriguez ATTENDING PHYSICIAN STATEMENT I saw and evaluated the patient. I reviewed the resident's note and discussed the case with the resident. I agree with the resident's findings and plan as documented. SUBJECTIVE: Pt seen and examined in the ICU. Hypertensive after HD and developed shortness of breath requiring BiPAP and high flow. Breathing better today. No chest pain. In rapid afib this AM. OBJECTIVE: Vital Signs Period Temp Pulse Resp BP Sys/Wyatt Pulse Ox Last 24 Hr 98.4 F-99.3 F 72-111 16-27 134-225/69-109 92-100 Intake & Output 04/28/18 04/29/18 04/30/18 05/01/18 23:59 23:59 23:59 23:59 Intake Total 1096.5 1552 964 470 Output Total 300 300 310 Balance 796.5 1252 654 470 Weight 58.196 kg 57.294 kg 58.995 kg 59.783 kg Gen: NAD at rest Heart: irregular, tachycardic Lung: decreased breath sounds at the bases Abd: soft, nontender Ext: no edema CBC, BMP 05/01/18 05:30 05/01/18 05:30 Active Medications Atorvastatin Calcium (Lipitor -) 80 mg PO HS [facility] Last Admin: 04/30/18 21:50 Dose: 80 mg Calcium Acetate (Phoslo -) 1,334 mg PO TIDCM [facility] Last Admin: 05/01/18 11:05 Dose: 1,334 mg Carvedilol (Coreg -) 25 mg PO BID [facility] Last Admin: 05/01/18 11:14 Dose: 25 mg Chlorhexidine Gluconate (Hibiclens For Decolonization -) 1 applic TP HS [facility] Last Admin: 04/30/18 21:50 Dose: 1 applic Heparin Sodium (Porcine) (Heparin -) 1,000 unit IVPUSH PRN PRN PRN Reason: Heparin Last Admin: 04/29/18 08:20 Dose: 1,000 unit Heparin Sodium (Porcine) (Heparin -) 5,000 unit IVPUSH PRN PRN PRN Reason: Heparin Hydralazine HCl (Apresoline -) 50 mg PO TID [facility] Last Admin: 05/01/18 06:30 Dose: 50 mg Heparin Sodium (Porcine) 25, (000 unit/ Sodium Chloride) 500 mls @ 16 mls/hr IV TITR [facility]; Protocol Last Admin: 04/30/18 19:29 Dose: Not Given Cefepime HCl 0.5 gm/ Dextrose 100 mls @ 200 mls/hr IVPB DAILY [facility]; Protocol Last Admin: 05/01/18 09:31 Dose: 200 mls/hr Vancomycin HCl 1,250 mg/ (Dextrose) 250 mls @ 166.667 mls/hr IVPB TuThSa@1000 [facility] Isosorbide Mononitrate (Imdur -) 60 mg PO DAILY [facility] Last Admin: 05/01/18 09:31 Dose: 60 mg Lidocaine HCl (Xylocaine 2% Viscous Oral -) 20 ml MM Q6HPO PRN PRN Reason: ORAL PAIN/MOUTH SORES Last Admin: 05/01/18 09:32 Dose: 20 ml Magnesium Oxide (Mag-Ox -) 400 mg PO DAILY [facility] Stop: 05/02/18 10:01 Last Admin: 05/01/18 09:32 Dose: 400 mg Metoprolol Tartrate (Lopressor Injection -) 5 mg IVPUSH ONCE ONE Stop: 05/01/18 11:31 Miscellaneous (Lidoderm Patch Removal) 1 each MC DAILY@2200 [facility] Last Admin: 04/30/18 21:50 Dose: 1 each Mupirocin (Bactroban Ointment (For Decolonization) -) 1 applic NS BID [facility] Stop: 05/02/18 21:59 Last Admin: 04/30/18 21:49 Dose: 1 applic Pantoprazole Sodium (Protonix Iv) 40 mg IVPUSH DAILY [facility] Last Admin: 05/01/18 09:32 Dose: 40 mg Sacubitril/Valsartan (Entresto 49 Mg-51 Mg Tablet) 1 tab PO BID [facility] Last Admin: 05/01/18 11:03 Dose: 1 tab ASSESSMENT AND PLAN: Altered Mental Status resolved s/p Acute Respiratory Failure Hypertensive Urgency resolved Hypertensive vs Uremic Encephalopathy improved Acute on Chronic Renal Failure requiring HD +Troponins likely demand ischemia Paroxysmal Atrial Fibrillation now in sinus Strep Bacteremia - complete antibiotics - HD per renal - monitor urine output, creatinine - for permacath, PD catheter placement tomorrow - taper FiO2 to keep SpO2 >90% - rate control - continue anticoagulation - BP control - PO as tolerated - DVT/GI prophylaxis - can monitor on telemetry
--- NOTE | 2018-05-01 12:49 | PN ---
Progress Note (short form) - Note Progress Note: 62 yeaar old gentleman with history of hypertension and end stage renal disease admitted with pulmonary edema and uremia. Patient is feeling better today. Reports episode of flash pulmonary edema post hemodialysis last night and paroxysmal atrial fibrillation. Patient is tolerating food intake . Vitals: Vital Signs (72 hours) 04/28/18 04/28/18 04/28/18 14:00 15:40 15:45 Temperature 98.2 F 98.3 F Pulse Rate 80 81 84 Respiratory 22 18 18 Rate Blood Pressure 158/74 158/71 151/62 O2 Sat by Pulse Oximetry (%) 04/28/18 04/28/18 04/28/18 16:00 16:15 16:45 Temperature 98.3 F Pulse Rate 78 76 79 Respiratory 16 18 18 Rate Blood Pressure 160/73 160/73 172/71 O2 Sat by Pulse Oximetry (%) 04/28/18 04/28/18 04/28/18 17:15 17:45 18:00 Temperature 98.7 F Pulse Rate 72 82 81 Respiratory 18 18 18 Rate Blood Pressure 182/76 175/71 168/86 O2 Sat by Pulse Oximetry (%) 04/28/18 04/28/18 04/28/18 18:15 18:45 18:50 Temperature Pulse Rate 86 92 H 85 Respiratory 18 18 18 Rate Blood Pressure 168/86 139/84 148/75 O2 Sat by Pulse Oximetry (%) 04/28/18 04/28/18 04/28/18 20:00 20:04 22:00 Temperature 98.0 F Pulse Rate 85 81 Respiratory 18 20 Rate Blood Pressure 189/80 151/66 O2 Sat by Pulse 94 L Oximetry (%) 04/29/18 04/29/18 04/29/18 00:00 02:00 04:00 Temperature 100 F H Pulse Rate 80 82 76 Respiratory 24 20 20 Rate Blood Pressure 148/70 147/63 165/68 O2 Sat by Pulse Oximetry (%) 04/29/18 04/29/18 04/29/18 07:27 07:34 09:00 Temperature 99.1 F Pulse Rate 75 70 Respiratory 22 21 Rate Blood Pressure 155/73 152/87 O2 Sat by Pulse 94 L Oximetry (%) 04/29/18 04/29/18 04/29/18 11:00 13:00 15:00 Temperature Pulse Rate 73 71 89 Respiratory 15 14 22 Rate Blood Pressure 144/64 141/65 159/100 O2 Sat by Pulse Oximetry (%) 04/29/18 04/29/18 04/29/18 17:00 19:24 19:25 Temperature Pulse Rate 80 Respiratory 16 Rate Blood Pressure 168/72 O2 Sat by Pulse 96 96 Oximetry (%) 04/29/18 04/29/18 04/30/18 20:00 22:00 00:00 Temperature 99.4 F Pulse Rate 98 H 72 71 Respiratory 20 20 22 Rate Blood Pressure 190/100 128/57 144/56 O2 Sat by Pulse Oximetry (%) 04/30/18 04/30/18 04/30/18 02:00 04:00 06:00 Temperature 99.5 F 99.1 F Pulse Rate 71 73 86 Respiratory 20 20 20 Rate Blood Pressure 170/71 146/71 190/81 O2 Sat by Pulse Oximetry (%) 04/30/18 04/30/18 04/30/18 08:00 09:00 10:00 Temperature 99.3 F Pulse Rate 77 82 Respiratory 20 18 15 Rate Blood Pressure 157/76 156/68 O2 Sat by Pulse 96 96 Oximetry (%) 04/30/18 04/30/18 04/30/18 12:00 14:00 15:20 Temperature 99.3 F Pulse Rate 72 76 79 Respiratory 22 19 18 Rate Blood Pressure 131/70 157/75 157/75 O2 Sat by Pulse Oximetry (%) 04/30/18 04/30/18 04/30/18 15:30 16:00 16:30 Temperature Pulse Rate 76 76 80 Respiratory 18 18 18 Rate Blood Pressure 162/70 171/69 183/89 O2 Sat by Pulse Oximetry (%) 04/30/18 04/30/18 04/30/18 17:00 17:30 18:00 Temperature Pulse Rate 76 85 90 Respiratory 18 18 23 Rate Blood Pressure 193/88 210/96 183/84 O2 Sat by Pulse Oximetry (%) 04/30/18 04/30/18 04/30/18 18:30 18:35 18:50 Temperature Pulse Rate 81 96 H Respiratory 18 18 Rate Blood Pressure 222/84 204/88 O2 Sat by Pulse 95 Oximetry (%) 04/30/18 04/30/18 04/30/18 19:00 19:56 20:00 Temperature Pulse Rate 111 H 96 H Respiratory 27 H 18 Rate Blood Pressure 225/109 204/88 O2 Sat by Pulse 96 92 L Oximetry (%) 04/30/18 04/30/18 04/30/18 20:41 21:00 22:00 Temperature 98.4 F Pulse Rate 102 H 77 Respiratory 24 20 Rate Blood Pressure 134/91 161/74 O2 Sat by Pulse 92 L Oximetry (%) 04/30/18 04/30/18 05/01/18 23:00 23:44 00:00 Temperature Pulse Rate 78 90 Respiratory 20 20 Rate Blood Pressure 178/88 163/78 O2 Sat by Pulse 100 Oximetry (%) 05/01/18 05/01/18 05/01/18 01:00 02:00 03:00 Temperature 99.2 F Pulse Rate 84 104 H 88 Respiratory 20 18 24 Rate Blood Pressure 142/69 152/78 165/78 O2 Sat by Pulse Oximetry (%) 05/01/18 05/01/18 05/01/18 04:00 05:00 06:00 Temperature 98.9 F Pulse Rate 90 92 H 92 H Respiratory 18 24 24 Rate Blood Pressure 152/74 174/78 180/70 O2 Sat by Pulse Oximetry (%) 05/01/18 05/01/18 05/01/18 07:14 08:00 08:27 Temperature Pulse Rate 88 90 89 Respiratory 24 Rate Blood Pressure 195/96 O2 Sat by Pulse 100 98 Oximetry (%) 05/01/18 11:04 Temperature Pulse Rate Respiratory Rate Blood Pressure O2 Sat by Pulse 99 Oximetry (%) Lungs; Coarse breath sound in both lung rangel with dullness in the right lung base. Heart: S1 S2 Irregular, no gallop Abd; Full, soft, non-tender Ext; No edema, Decrease tenderness iin the left knee Neuro; No gross focality Labs: CBCD WBC 15.9 K/mm3 (4.0-10.0) H 05/01/18 05:30 RBC 3.47 M/mm3 (4.00-5.60) L 05/01/18 05:30 Hgb 9.6 GM/dL (11.7-16.9) L 05/01/18 05:30 Hct 30.0 % (35.4-49) L 05/01/18 05:30 MCV 86.7 fl (80-96) 05/01/18 05:30 MCHC 31.9 g/dl (32.0-35.9) L 05/01/18 05:30 RDW 17.4 % (11.9-15.9) H 05/01/18 05:30 Plt Count 273 K/MM3 (134-434) 05/01/18 05:30 MPV 9.0 fl (7.5-11.1) 05/01/18 05:30 CMP Sodium 136 mmol/L (136-145) 05/01/18 05:30 Potassium 4.2 mmol/L (3.5-5.1) 05/01/18 05:30 Chloride 96 mmol/L (98-107) L 05/01/18 05:30 Carbon Dioxide 31 mmol/L (21-32) 05/01/18 05:30 Anion Gap 9 (8-16) 05/01/18 05:30 BUN 34 mg/dL (7-18) H D 05/01/18 05:30 Creatinine 5.6 mg/dL (0.7-1.3) H 05/01/18 05:30 Creat Clearance w eGFR 10.34 (>60) 05/01/18 05:30 Random Glucose 84 mg/dL (74-106) 05/01/18 05:30 Calcium 8.4 mg/dL (8.5-10.1) L 05/01/18 05:30 Total Bilirubin 0.4 mg/dL (0.2-1.0) 05/01/18 05:30 AST 20 U/L (15-37) 05/01/18 05:30 ALT 21 U/L (12-78) 05/01/18 05:30 Alkaline Phosphatase 94 U/L (45-117) 05/01/18 05:30 Total Protein 5.7 g/dl (6.4-8.2) L 05/01/18 05:30 Albumin 1.9 g/dl (3.4-5.0) L 05/01/18 05:30 CARDIAC ENZYMES Creatine Kinase 226 IU/L (39-308) 04/22/18 13:55 Troponin I 0.39 ng/ml (0.00-0.05) H 04/23/18 10:30 A/P: 62 year old man admitted with uremia and accelerated hypertension. Episode of post hemodialysis HTN might be related dialysis of some of the medications. Consider switching metoprolol to carvedilol if okay with the cardiology. Vascular surgery follow for insertion of permacath and peritoneal dialysis catheter. Ultimate preferred outpatient modality is CAPD. Will follow.
[2018-05-01] MEDS ORDERED: LIDOCAINE 5% TOPICAL PATCH TP SCH (13:30)
--- NOTE | 2018-05-01 13:57 | PN ---
Physical Exam: SUBJECTIVE: Patient seen and examined. He offers no complaints except for the same L knee pain. 24 hour events: Patient BP 200's/100's after dialysis treatment. Went back on Bipap overnight but now maintaining saturations on Nasal cannula. OBJECTIVE: Vital Signs Period Temp Pulse Resp BP Sys/Wyatt Pulse Ox Last 24 Hr 98.4 F-99.3 F 72-170 16-27 134-225/69-109 92-100 GENERAL: awake, alert. comfortable in NAD EYES: PERRL, sclera anicteric, conjunctiva clear. ENT: oropharynx clear without exudates LUNGS: decreased breath sounds at bases, no wheezing HEART: irregularly irregular. ABDOMEN: Soft, Nd, ND, +BS EXTREMITIES: 2+ pulses, warm, no edema Laboratory Results - last 24 hr 04/30/18 04/30/18 04/30/18 06:00 10:25 14:30 WBC RBC Hgb Hct MCV MCH MCHC RDW Plt Count MPV PTT (Actin FS) Sodium Potassium Chloride Carbon Dioxide Anion Gap BUN Creatinine Creat Clearance w eGFR Random Glucose Uric Acid 5.1 Calcium Phosphorus Magnesium Total Bilirubin AST ALT Alkaline Phosphatase Total Protein Albumin Urine Color Ltyellow Urine Appearance Clear Urine pH 7.0 Ur Specific [place] 1.010 Urine Protein 2+ H Urine Glucose (UA) 1+ H Urine Ketones Negative Urine Blood 1+ H Urine Nitrite Negative Urine Bilirubin Negative Urine Urobilinogen Negative Ur Leukocyte Esterase Negative Urine WBC (Auto) 5 Urine RBC (Auto) 16 Ur Epithelial Cells Rare Stool Occult Blood Random Vancomycin 22.65 05/01/18 05/01/18 05/01/18 05:30 05:30 05:30 WBC 15.9 H RBC 3.47 L Hgb 9.6 L Hct 30.0 L MCV 86.7 MCH 27.7 MCHC 31.9 L RDW 17.4 H Plt Count 273 MPV 9.0 PTT (Actin FS) 49.6 H Sodium 136 Potassium 4.2 Chloride 96 L Carbon Dioxide 31 Anion Gap 9 BUN 34 H D Creatinine 5.6 H Creat Clearance w eGFR 10.34 Random Glucose 84 Uric Acid Calcium 8.4 L Phosphorus 4.1 D Magnesium 1.8 Total Bilirubin 0.4 AST 20 ALT 21 Alkaline Phosphatase 94 Total Protein 5.7 L Albumin 1.9 L Urine Color Urine Appearance Urine pH Ur Specific [place] Urine Protein Urine Glucose (UA) Urine Ketones Urine Blood Urine Nitrite Urine Bilirubin Urine Urobilinogen Ur Leukocyte Esterase Urine WBC (Auto) Urine RBC (Auto) Ur Epithelial Cells Stool Occult Blood Random Vancomycin 05/01/18 12:10 WBC RBC Hgb Hct MCV MCH MCHC RDW Plt Count MPV PTT (Actin FS) Sodium Potassium Chloride Carbon Dioxide Anion Gap BUN Creatinine Creat Clearance w eGFR Random Glucose Uric Acid Calcium Phosphorus Magnesium Total Bilirubin AST ALT Alkaline Phosphatase Total Protein Albumin Urine Color Urine Appearance Urine pH Ur Specific [place] Urine Protein Urine Glucose (UA) Urine Ketones Urine Blood Urine Nitrite Urine Bilirubin Urine Urobilinogen Ur Leukocyte Esterase Urine WBC (Auto) Urine RBC (Auto) Ur Epithelial Cells Stool Occult Blood Negative Random Vancomycin Active Medications Generic Name Dose Route Start Last Admin Trade Name Freq PRN Reason Stop Dose Admin Atorvastatin Calcium 80 mg 04/27/18 22:00 04/30/18 21:50 Lipitor - PO 80 mg HS [facility] Administration Calcium Acetate 1,334 mg 04/28/18 08:00 05/01/18 11:05 Phoslo - PO 1,334 mg TIDCM [facility] Administration Carvedilol 25 mg 05/01/18 10:00 05/01/18 11:14 Coreg - PO 25 mg BID [facility] Administration Chlorhexidine Gluconate 1 applic 04/27/18 22:00 04/30/18 21:50 Hibiclens For Decolonization - TP 1 applic HS [facility] Administration Epoetin Judson 10,000 unit 05/02/18 00:01 Procrit - IVPUSH 05/02/18 00:02 ONCE ONE Heparin Sodium (Porcine) 1,000 unit 04/27/18 18:17 04/29/18 08:20 Heparin - IVPUSH 1,000 unit PRN PRN Administration Heparin Heparin Sodium (Porcine) 5,000 unit 04/27/18 18:17 Heparin - IVPUSH PRN PRN Heparin Hydralazine HCl 50 mg 04/27/18 14:22 05/01/18 06:30 Apresoline - PO 50 mg TID [facility] Administration Heparin Sodium (Porcine) 25, 500 mls @ 16 mls/hr 04/27/18 18:17 04/30/18 19: 29 000 unit/ Sodium Chloride IV Not Given TITR [facility] Protocol 800 UNIT/HR Cefepime HCl 0.5 gm/ Dextrose 100 mls @ 200 mls/hr 04/28/18 13:00 05/01/18 09 :31 IVPB 200 mls/hr DAILY [facility] Administration Protocol Vancomycin HCl 1,250 mg/ 250 mls @ 166.667 mls/hr 05/01/18 10:00 Dextrose IVPB TuThSa@1000 [facility] Isosorbide Mononitrate 60 mg 05/01/18 10:00 05/01/18 09:31 Imdur - PO 60 mg DAILY [facility] Administration Lidocaine 1 patch 05/01/18 13:30 Lidoderm Patch - TP DAILY [facility] Lidocaine HCl 20 ml 04/30/18 09:08 05/01/18 09:32 Xylocaine 2% Viscous Oral - MM 20 ml Q6HPO PRN Administration ORAL PAIN/MOUTH SORES Magnesium Oxide 400 mg 04/30/18 10:00 05/01/18 09:32 Mag-Ox - PO 05/02/18 10:01 400 mg DAILY [facility] Administration Miscellaneous 1 each 04/30/18 22:00 04/30/18 21:50 Lidoderm Patch Removal MC 1 each DAILY@2200 [facility] Administration Miscellaneous 1 each 05/01/18 22:00 Lidoderm Patch Removal MC DAILY@2200 [facility] Mupirocin 1 applic 04/27/18 22:00 05/01/18 11:00 Bactroban Ointment (For Decolonization) - NS 05/02/18 21:59 1 applic BID [facility] Administration Pantoprazole Sodium 40 mg 04/28/18 10:00 05/01/18 09:32 Protonix Iv IVPUSH 40 mg DAILY [facility] Administration Sacubitril/Valsartan 1 tab 05/01/18 10:00 05/01/18 11:03 Entresto 49 Mg-51 Mg Tablet PO 1 tab BID [facility] Administration ASSESSMENT/PLAN: NEURO #Acute toxic metabolic encephalopathy -resolved -likely secondary to a combination of hypertensive emergency and uremia -HD per renal with ultrafiltration -BP monitoring #Acute on Chronic CKD -HD as needed -s/p Trialysis Cath 04/28. Remove after HD tomorrow -Plan for permacath tomorrow afternoon, per Vascular -monitor urine output, creatinine -Follow nephro reccs -avoid nephrotoxins PULM #Acute respiratory failure -resolved -Oxygen supplementation w/ 2L nasal cannula -keep SpO2 >90% CV #Hypertensive urgency -resolved -Cont. coreg 12.5mg BID, Hydralazine 50 TID, Imdur. Started On Entresto per Cardio. Amlodipine stopped -BP monitoring -ECHO: moderate to severe L ventricular systolic dysfunction #Afib -Heparin gtt -Bridge to coumadin ID -Now afebrile -Repeat cultures negative -IV abx Day 7: Vancomycin, Cefepime MSK #L knee pain -xray negative -uric acid WNL FEN -No iv fluids -monitor lytes -dysphagia puree, NPO after midnight for Permacath placement. PPX -hep gtt -protonix iv Transfer to Tele Visit type - Emergency Visit Emergency Visit: Yes ED Registration Date: 04/22/18 Care time: The patient presented to the Emergency Department on the above date and was hospitalized for further evaluation of their emergent condition. - New Patient This patient is new to me today: No - Critical Care Critical Care patient: Yes Total Critical Care Time (in minutes): 40 Critical Care Statement: The care of this patient involved high complexity decision making to prevent further life threatening deterioration of the patient 's condition and/or to evaluate & treat vital organ system(s) failure or risk of failure.
[2018-05-01] MEDS ORDERED: PT OWN MED DRAWER 7, Y5N ONE (16:16)
[2018-05-01] MEDS: TAMSULOSIN HCL 0.4 MG CAP.ER.24H (FP) PO SCH (16:45)
[2018-05-01] MEDS: HEPARIN - 25,000 UNIT in SODIUM CHLORIDE 495 ML IV SCH ×2 (16:47→21:42)
--- NOTE | 2018-05-01 16:56 | PN ---
Progress Note, Physician History of Present Illness: stable high bp noted no complaints able to pass urine - Current Medication List Current Medications: Active Medications Atorvastatin Calcium (Lipitor -) 80 mg PO HS [facility] Last Admin: 04/30/18 21:50 Dose: 80 mg Calcium Acetate (Phoslo -) 1,334 mg PO TIDCM [facility] Last Admin: 05/01/18 16:40 Dose: 1,334 mg Carvedilol (Coreg -) 25 mg PO BID [facility] Last Admin: 05/01/18 11:14 Dose: 25 mg Chlorhexidine Gluconate (Hibiclens For Decolonization -) 1 applic TP HS [facility] Last Admin: 04/30/18 21:50 Dose: 1 applic Epoetin Judson (Procrit -) 10,000 unit IVPUSH ONCE ONE Stop: 05/02/18 00:02 Heparin Sodium (Porcine) (Heparin -) 1,000 unit IVPUSH PRN PRN PRN Reason: Heparin Last Admin: 04/29/18 08:20 Dose: 1,000 unit Heparin Sodium (Porcine) (Heparin -) 5,000 unit IVPUSH PRN PRN PRN Reason: Heparin Hydralazine HCl (Apresoline -) 50 mg PO TID [facility] Last Admin: 05/01/18 14:25 Dose: 50 mg Heparin Sodium (Porcine) 25, (000 unit/ Sodium Chloride) 500 mls @ 16 mls/hr IV TITR [facility]; Protocol Last Admin: 04/30/18 19:29 Dose: Not Given Cefepime HCl 0.5 gm/ Dextrose 100 mls @ 200 mls/hr IVPB DAILY [facility]; Protocol Last Admin: 05/01/18 09:31 Dose: 200 mls/hr Vancomycin HCl 1,250 mg/ (Dextrose) 250 mls @ 166.667 mls/hr IVPB TuThSa@1000 [facility] Isosorbide Mononitrate (Imdur -) 60 mg PO DAILY [facility] Last Admin: 05/01/18 09:31 Dose: 60 mg Lidocaine (Lidoderm Patch -) 1 patch TP DAILY [facility] Last Admin: 05/01/18 15:30 Dose: 1 patch Lidocaine HCl (Xylocaine 2% Viscous Oral -) 20 ml MM Q6HPO PRN PRN Reason: ORAL PAIN/MOUTH SORES Last Admin: 05/01/18 09:32 Dose: 20 ml Magnesium Oxide (Mag-Ox -) 400 mg PO DAILY [facility] Stop: 05/02/18 10:01 Last Admin: 05/01/18 09:32 Dose: 400 mg Miscellaneous (Lidoderm Patch Removal) 1 each MC DAILY@2200 [facility] Last Admin: 04/30/18 21:50 Dose: 1 each Miscellaneous (Lidoderm Patch Removal) 1 each MC DAILY@2200 [facility] Mupirocin (Bactroban Ointment (For Decolonization) -) 1 applic NS BID [facility] Stop: 05/02/18 21:59 Last Admin: 05/01/18 11:00 Dose: 1 applic Pantoprazole Sodium (Protonix Iv) 40 mg IVPUSH DAILY [facility] Last Admin: 05/01/18 09:32 Dose: 40 mg Sacubitril/Valsartan (Entresto 49 Mg-51 Mg Tablet) 1 tab PO BID [facility] Last Admin: 05/01/18 11:03 Dose: 1 tab Tamsulosin HCl (Flomax -) 0.4 mg PO DAILY@0830 [facility] - Objective Vital Signs: Vital Signs Temperature 99.3 F 05/01/18 14:00 Pulse Rate 84 05/01/18 14:00 Respiratory Rate 20 05/01/18 14:00 Blood Pressure 154/68 05/01/18 14:00 O2 Sat by Pulse Oximetry (%) 96 05/01/18 13:56 Constitutional: Yes: No Distress, Calm Neck: Yes: Other (central line present) Cardiovascular: Yes: Regular Rate and Rhythm Respiratory: Yes: Regular, CTA Bilaterally Gastrointestinal: Yes: Normal Bowel Sounds, Soft Musculoskeletal: Yes: WNL Extremities: Yes: WNL Neurological: Yes: Alert, Oriented Psychiatric: Yes: Alert, Oriented Labs: CBC, BMP 05/01/18 05:30 05/01/18 05:30 INR, PTT INR 1.27 (0.82-1.09) H 04/26/18 23:30 Assessment/Plan Problem List - Problems (1) Acute on chronic systolic (congestive) heart failure Code(s): I50.23 - ACUTE ON CHRONIC SYSTOLIC (CONGESTIVE) HEART FAILURE (2) CAD (coronary artery disease) Code(s): I25.10 - ATHSCL HEART DISEASE OF [place] CORONARY ARTERY W/O ANG PCTRS Qualifiers: Coronary Disease-Associated Artery/Lesion type: [place] artery [place] vs. transplanted heart: [place] heart Associated angina: without angina Qualified Code(s): I25.10 - Atherosclerotic heart disease of [place] coronary artery without angina pectoris (3) End stage renal disease Code(s): N18.6 - END STAGE RENAL DISEASE (4) Hyperlipidemia Code(s): E78.5 - HYPERLIPIDEMIA, UNSPECIFIED Qualifiers: Hyperlipidemia type: pure hypercholesterolemia Qualified Code(s): E78.00 - Pure hypercholesterolemia, unspecified; E78.0 - Pure hypercholesterolemia (5) Hypertensive cardiomyopathy Code(s): I11.9 - HYPERTENSIVE HEART DISEASE WITHOUT HEART FAILURE; I43 - CARDIOMYOPATHY IN DISEASES CLASSIFIED ELSEWHERE Qualifiers: Heart failure presence: with heart failure Qualified Code(s): I11.0 - Hypertensive heart disease with heart failure; I43 - Cardiomyopathy in diseases classified elsewhere (6) Ischemic cardiomyopathy Code(s): I25.5 - ISCHEMIC CARDIOMYOPATHY (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 male admitted with SOB/Acute respiratory failure, Pulmonary congestion, Fever, with Femoral catheter in place Sepsis PNA - Klebsiella/MRSA Streptococcal bacteremia Persistent Fever Lt knee pain/mild swelling Renal Failure - now on HD CHF/Pulm edema Hypertensive urgency CAD s/p AR s/p hypoxic resp failure continue abx vanco level noted hold vanco will check levels again follow levels rest as per icu cc 40 min
--- NOTE | 2018-05-01 17:04 | PN ---
Teaching Attending Note Name of Resident: Geni Sorensen ATTENDING PHYSICIAN STATEMENT I saw and evaluated the patient. I reviewed the resident's note and discussed the case with the resident. I agree with the resident's findings and plan as documented. SUBJECTIVE:c/o dysuria. denies CP, SOB, fever, chills, N/V/C/D OBJECTIVE: Last Vital Signs Temp Pulse Resp BP Pulse Ox 99.3 F 84 20 154/68 96 05/01/18 14:00 05/01/18 14:00 05/01/18 14:00 05/01/18 14:00 05/01/18 13:56 Intake & Output 04/28/18 04/29/18 04/30/18 05/01/18 23:59 23:59 23:59 23:59 Intake Total 1096.5 2787 971 8726 Output Total 300 300 310 40 Balance 796.5 1252 654 974 Weight 128 lb 4.8 oz 126 lb 5 oz 130 lb 1 oz 131 lb 12.8 oz General NAD CV S1 S2 RRR no murmur/rub/gallop Lungs Coarse breath sounds anteriorly ABdomen soft NT/ND no suprapubic distention or tenderness Extremities no edema ASSESSMENT AND PLAN: 62yo M with PMH CKD (has refused HD in the past), and CAD presenting with progressively worsening shortness of breath and altered mental status. in the ER was found to have SBP 240. anabelle larkin was activated in the ER 1. ACute toxic/metabolic encephalopathy-s/p shiley placement 04/22 and emergent HD done. and HTN controlled. now returned to baseline. 2. acute hypozic respiratory failure- due to early ARDS with poor mental state. intubated and now extubated. saturating well on RA 3. HTN crisis- above goal but overall improved. renal artery doppler ordered to r/o stenosis. titrate medications as tolerated. 4. Sepsis due to strep bacteremia- clinically improved. repeat BCx negative. on cefepime/vanco (with HD) day 4. ID on board. 5. Afib wiht RVR- uncontrolled. increase coreg. on heparin ggt. can bridge to coumadin once no further procedures are planned. cardio on board 6. hyperphosphatemia- due to renal failure- now resolved. on phoslo 7. acute on CKD stage V now on HD-RIJ shiley placed with HD. will need permacath placement prior to discharge. cont HD per nephro 8. L knee swelling- reports as improved. seen by ortho. likely hematoma no intervention at this time 9. dysuria- check UA. pt still makes minimal amounts of urine 10. Elevated troponin- likely demand ischemia. can have further ischemia workup as outpatient 11. Normocytic anemia- likely diluational. no signs of bleeding. Hgb stable. check iron studies. no indication for txn 12. dementia- hold aricept 13. DVT ppx- hep ggt 14. MICU monitoring. stable for transfer to tele for cardiac monitoring as HR has been uncontrolled The care of this patient involved high complexity decision making to prevent further life threatening deterioration of the patient's condition and/or to evaluate & treat vital organ system(s) failure or risk of failure. 40 minutes
--- NOTE | 2018-05-01 17:47 | CONSULT ---
Consult - History of Present Illness History of Present Illness: 62 year old man with ESRD now requiring hemodialysis. He will need AV access and a peritoneal dialysis catheter is being requested for home PD treatment. He has no prior abdominal surgery. He is right handed. 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 Cardio/Vascular: Yes: CAD, CHF, Hyperlipdemia, MA Pulmonary: No: Asthma, Bronchitis, Cancer, COPD, O2 Dependent, Pneumonia, Previously Intubated, Pulmonary Embolus, Pulmonary Fibrosis, Sleep Apnea, Other Renal/: Yes: Renal Failure - Alcohol/Substance Use Hx Alcohol Use: No - Smoking History Smoking history: Unknown if ever smoked Have you smoked in the past 12 months: No - Social History Usual Living Arrangement: With Spouse ADL: Independent Home Medications - Allergies Allergies/Adverse Reactions: Allergies Allergy/AdvReac Type Severity Reaction Status Date / Time No Known Allergies Allergy Verified 04/22/18 14:21 - Home Medications Home Medications: Ambulatory Orders Amlodipine Besylate [Norvasc -] 10 mg PO DAILY 04/22/18 Aspirin Coated [Ecotrin -] 81 mg PO DAILY 04/22/18 Carvedilol [Coreg -] 12.5 mg PO BID 04/22/18 Donepezil HCl [Aricept -] 10 mg PO DAILY 04/22/18 Hydralazine HCl 50 mg PO TID 04/22/18 Tamsulosin HCl [Flomax] 0.4 mg PO DAILY 04/22/18 Atorvastatin Calcium 80 mg PO DAILY 04/23/18 Calcium Acetate [Phoslo -] 667 mg PO TIDCM 04/23/18 Isosorbide Mononitrate [Isosorbide Mononitrate ER] 60 mg PO DAILY 04/23/18 Sodium Bicarbonate - 650 mg PO TID 04/23/18 Physical Exam Vital Signs: Vital Signs Temperature 99.3 F 05/01/18 14:00 Pulse Rate 84 05/01/18 14:00 Respiratory Rate 20 05/01/18 14:00 Blood Pressure 154/68 05/01/18 14:00 O2 Sat by Pulse Oximetry (%) 96 05/01/18 13:56 Neck: Yes: Supple Gastrointestinal: Yes: Soft. No: Hernia Labs: CBC, BMP 05/01/18 05:30 05/01/18 05:30 Problem List - Problems (1) End stage renal disease Assessment/Plan: Plan for placement of Permacath and PD catheter (if he is cleared for general anesthesia) on Monday. Plans discussed with patient who agrees to proceed. Code(s): N18.6 - END STAGE RENAL DISEASE
[2018-05-01] MEDS: CHLORHEXIDINE GLUCONATE 4% CLEANSER FOR DECOLONIZATION TP SCH (21:39)
[2018-05-01] MEDS ORDERED: LIDOCAINE PATCH REMOVAL MC SCH (22:00)
[2018-05-01] MEDS: ATORVASTATIN CA 80 MG TABLET (FP) PO SCH (22:15)
[2018-05-01] MEDS: LIDOCAINE PATCH REMOVAL MC SCH (22:15)
[2018-05-02 06:26] LABS: HEMATOCRIT 28.1 % (35.4-49); HEMOGLOBIN 9.2 GM/dL (11.7-16.9); MCH 28.1 pg (25.7-33.7); MCHC 32.6 g/dl (32.0-35.9); MEAN CELL VOLUME 86.2 fl (80-96); PLATELET COUNT 300 K/MM3 (134-434); RBC 3.26 M/mm3 (4.00-5.60); RDW 17.5 % (11.9-15.9)
[2018-05-02] MEDS: hydrALAZINE HCL 50 MG TABLET (FP) PO SCH ×3 (06:33→21:00)
[2018-05-02 06:51] LABS: ALBUMIN 1.9 g/dl (3.4-5.0); CHLORIDE 98 mmol/L (98-107); POTASSIUM 4.1 mmol/L (3.5-5.1); SODIUM 137 mmol/L (136-145)
[2018-05-02 06:57] LABS: ALK PHOS 100 U/L (45-117); ANION GAP 11 (8-16); BILIRUBIN,TOTAL 0.3 mg/dL (0.2-1.0); BLOOD UREA NITROGEN 53 mg/dL (7-18); CALCIUM 7.8 mg/dL (8.5-10.1); CO2 28 mmol/L (21-32); GLUCOSE,RANDOM 101 mg/dL (74-106); PHOSPHOROUS 3.6 mg/dL (2.5-4.9); SGOT/AST 26 U/L (15-37); SGPT/ALT 24 U/L (12-78); TOT PROT 5.6 g/dl (6.4-8.2)
[2018-05-02 07:14] LABS: CREATININE 7.6 mg/dL (0.7-1.3)
[2018-05-02] MEDS: CALCIUM ACETATE 667 MG CAPSULE (FP) PO SCH ×3 (08:49→18:52)
[2018-05-02 08:51] LABS: HEMATOCRIT 28.1 % (35.4-49); MCH 27.5 pg (25.7-33.7); MCHC 31.9 g/dl (32.0-35.9); MEAN CELL VOLUME 86.3 fl (80-96); MEAN PLT VOLUME 9.3 fl (7.5-11.1); PLATELET COUNT 320 K/MM3 (134-434); RBC 3.26 M/mm3 (4.00-5.60); RDW 17.5 % (11.9-15.9); WHITE BLOOD COUNT 10.5 K/mm3 (4.0-10.0)
[2018-05-02] MEDS ORDERED: EPOETIN ALFA 10,000 UNIT/1 ML VIAL IVPUSH ONE (09:00)
[2018-05-02] MEDS ORDERED: VANCOMYCIN 1,250 MG in DEXTROSE 5%-WATER - 250 ML IVPB ONE (09:30)
--- NOTE | 2018-05-02 10:39 | PN ---
Progress Note (short form) - Note Progress Note: 62 WITH HTN ESRD LAST HD MONDAY CULTURE NEG NOW O/E RT IJ TEMP CATHETER CHEST CLEAR ABD SOFE [id number] EXT NO EDEMA ODONNELL OUT LEFT KNEE POINT TENDERNESS POS BLOOD CULTURE WITH STREP SPUTIM FOR STAPH AND KLEBSIELLA ON VANCO AND CEFEPIME HD TODAY VIA RT IJ 3 HR K2 TARGET 2 KG NOT AGREEING TO PD CATHETER WILL GET JUST PERMCATH TODAY CASE D/W DISCHARGE PLANNING NEEDS PT NEEDS STR APPLY FOR PARATRANSIT MEDICALLY CLEARED FOR PERMCATH
--- NOTE | 2018-05-02 10:49 | PN ---
Progress Note, Physician History of Present Illness: Dyspnea improving with HD/UF. Rate-controlled afib. - Current Medication List Current Medications: Active Medications Atorvastatin Calcium (Lipitor -) 80 mg PO HS [facility] Last Admin: 05/01/18 22:15 Dose: 80 mg Calcium Acetate (Phoslo -) 1,334 mg PO TIDCM [facility] Last Admin: 05/01/18 16:40 Dose: 1,334 mg Carvedilol (Coreg -) 25 mg PO BID [facility] Last Admin: 05/01/18 22:15 Dose: 25 mg Chlorhexidine Gluconate (Hibiclens For Decolonization -) 1 applic TP HS [facility] Last Admin: 05/01/18 21:39 Dose: Not Given Heparin Sodium (Porcine) (Heparin -) 1,000 unit IVPUSH PRN PRN PRN Reason: Heparin Last Admin: 04/29/18 08:20 Dose: 1,000 unit Heparin Sodium (Porcine) (Heparin -) 5,000 unit IVPUSH PRN PRN PRN Reason: Heparin Hydralazine HCl (Apresoline -) 50 mg PO TID [facility] Last Admin: 05/02/18 06:33 Dose: Not Given Heparin Sodium (Porcine) 25, (000 unit/ Sodium Chloride) 500 mls @ 16 mls/hr IV TITR [facility]; Protocol Last Admin: 05/01/18 21:42 Dose: Not Given Cefepime HCl 0.5 gm/ Dextrose 100 mls @ 200 mls/hr IVPB DAILY [facility]; Protocol Last Admin: 05/01/18 09:31 Dose: 200 mls/hr Vancomycin HCl 1,250 mg/ (Dextrose) 250 mls @ 166.667 mls/hr IVPB TuThSa@1000 [facility] Vancomycin HCl 1,250 mg/ (Dextrose) 250 mls @ 166.667 mls/hr IVPB ONCE ONE Stop: 05/02/18 10:59 Isosorbide Mononitrate (Imdur -) 60 mg PO DAILY [facility] Last Admin: 05/01/18 09:31 Dose: 60 mg Lidocaine (Lidoderm Patch -) 1 patch TP DAILY [facility] Last Admin: 05/01/18 15:30 Dose: 1 patch Lidocaine HCl (Xylocaine 2% Viscous Oral -) 20 ml MM Q6HPO PRN PRN Reason: ORAL PAIN/MOUTH SORES Last Admin: 05/01/18 09:32 Dose: 20 ml Miscellaneous (Lidoderm Patch Removal) 1 each MC DAILY@0 [facility] Last Admin: 05/01/18 22:15 Dose: 1 each Miscellaneous (Lidoderm Patch Removal) 1 each MC DAILY@0 [facility] Last Admin: 05/01/18 22:16 Dose: Not Given Mupirocin (Bactroban Ointment (For Decolonization) -) 1 applic NS BID [facility] Stop: 05/02/18 21:59 Last Admin: 05/01/18 22:12 Dose: Not Given Pantoprazole Sodium (Protonix Iv) 40 mg IVPUSH DAILY [facility] Last Admin: 05/01/18 09:32 Dose: 40 mg Sacubitril/Valsartan (Entresto 49 Mg-51 Mg Tablet) 1 tab PO BID [facility] Last Admin: 05/01/18 22:17 Dose: 1 tab Tamsulosin HCl (Flomax -) 0.4 mg PO DAILY@0830 [facility] Last Admin: 05/01/18 16:45 Dose: 0.4 mg - Objective Vital Signs: Vital Signs Temperature 98.8 F 05/02/18 08:00 Pulse Rate 70 05/02/18 10:15 Respiratory Rate 16 05/02/18 10:15 Blood Pressure 154/82 05/02/18 10:15 O2 Sat by Pulse Oximetry (%) 100 05/02/18 09:00 Constitutional: Yes: No Distress, Calm, Thin Neck: Yes: Supple, Other (Rt IJ catheter) Cardiovascular: Yes: Pulse Irregular Respiratory: Yes: Regular, Diminished, On Nasal O2 Gastrointestinal: Yes: Normal Bowel Sounds, Soft Edema: No Labs: CBC, BMP 05/02/18 07:10 05/02/18 05:30 INR, PTT INR 1.27 (0.82-1.09) H 04/26/18 23:30 - ....Imaging Chest X-ray: Report Reviewed (Increasing congestion) Problem List - Problems (1) Acute on chronic systolic (congestive) heart failure Code(s): I50.23 - ACUTE ON CHRONIC SYSTOLIC (CONGESTIVE) HEART FAILURE (2) Hypertensive cardiomyopathy Code(s): I11.9 - HYPERTENSIVE HEART DISEASE WITHOUT HEART FAILURE; I43 - CARDIOMYOPATHY IN DISEASES CLASSIFIED ELSEWHERE Qualifiers: Qualified Code(s): I11.0 - Hypertensive heart disease with heart failure; I43 - Cardiomyopathy in diseases classified elsewhere (3) Hyperlipidemia Code(s): E78.5 - HYPERLIPIDEMIA, UNSPECIFIED Qualifiers: Qualified Code(s): E78.00 - Pure hypercholesterolemia, unspecified; E78.0 - Pure hypercholesterolemia (4) Ischemic cardiomyopathy Code(s): I25.5 - ISCHEMIC CARDIOMYOPATHY (5) End stage renal disease Code(s): N18.6 - END STAGE RENAL DISEASE (6) Old inferolateral myocardial infarction Code(s): I25.2 - OLD MYOCARDIAL INFARCTION Assessment/Plan January 17, 2015 R&LHc @ [facility]: 3 vessel CAD with MACHINE TECH RVA and OM2, elevated right and left heart pressures January 19, 2015 Echo: Mod LVH moderate decreased LVEF 40% with AK inferior and inferoseptal, mild AR, MR, mild LAE January 22, 2015 Lexiscan Myoview: Dense scar inferior wall, large lateral ischemia, inferolateral AK, LVEF 30$ January 21, 2015 Rest and redistribution Thallium: Scar involving entire inferior wall, basal to mid inferolateral, basal inferoseptal, and apex, no significant hibernating myocardiaum, dilated LV with severely decreased LVEF 27% April 23, 2018 Echo: Moderately dilated with moderate decreased LV fxn, mild decreased RV fxn, mild AR, mild LAE 1. Acute on chronic diastolic/systolic failure and pulmonary edema referable to 2. Hypertensive urgency in context of dietary/medical indiscretion (previously declined HD), r/o renal artery stenosis 3. Post acute hypoxic respiratory failure 4. CAD s/p MA, demand ischemic injury 5. Ischemic cardiomyopathy (moderate) 6. Acute on Chronic Renal Failure requiring HD 7. Paroxysmal atrial fibrillation 8. Resolved Altered Mental Status r/o Hypertensive vs Uremic Encephalopathy 9. Anemia of CKD 10. PNA - Klebsiella/MRSA, Streptococcal bacteremia P:1. Volume removal via UF/HD, plan for PC 2. Continue carvedilol 25 bid, hydralazine 50 tid, Imdur 60 qd (BiDil), Lipitor 80 qd, and Entresto 49/51 bid 3. Continue heparin gtt for now and resume coumadin per INR once PC has been placed, GI protection 4. Renal arterial Doppler to R/O renal artery stenosis 5. O2 to maintain saturation, complete abx course per ID 6. Pt to f/u with Dr. Jeannette Kaiser at [facility] upon d/c
[2018-05-02] MEDS: CARVEDILOL 25 MG TABLET (FP) PO SCH ×2 (10:50→21:00)
[2018-05-02] MEDS: SACUBITRIL/VALSARTAN 49 MG-51 MG TABLET PO SCH (10:53)
[2018-05-02] MEDS: ISOSORBIDE MONONITRATE 60 MG TAB.SR.24H (FP) PO SCH (10:54)
--- NOTE | 2018-05-02 11:05 | PN ---
Progress Note, Physician History of Present Illness: PULMONARY ALERT,COMFORTABLE,-C/O SOB - Current Medication List Current Medications: Active Medications Atorvastatin Calcium (Lipitor -) 80 mg PO HS [facility] Last Admin: 05/01/18 22:15 Dose: 80 mg Calcium Acetate (Phoslo -) 1,334 mg PO TIDCM [facility] Last Admin: 05/01/18 16:40 Dose: 1,334 mg Carvedilol (Coreg -) 25 mg PO BID [facility] Last Admin: 05/01/18 22:15 Dose: 25 mg Chlorhexidine Gluconate (Hibiclens For Decolonization -) 1 applic TP HS [facility] Last Admin: 05/01/18 21:39 Dose: Not Given Heparin Sodium (Porcine) (Heparin -) 1,000 unit IVPUSH PRN PRN PRN Reason: Heparin Last Admin: 04/29/18 08:20 Dose: 1,000 unit Heparin Sodium (Porcine) (Heparin -) 5,000 unit IVPUSH PRN PRN PRN Reason: Heparin Hydralazine HCl (Apresoline -) 50 mg PO TID [facility] Last Admin: 05/02/18 06:33 Dose: Not Given Heparin Sodium (Porcine) 25, (000 unit/ Sodium Chloride) 500 mls @ 16 mls/hr IV TITR [facility]; Protocol Last Admin: 05/01/18 21:42 Dose: Not Given Cefepime HCl 0.5 gm/ Dextrose 100 mls @ 200 mls/hr IVPB DAILY [facility]; Protocol Last Admin: 05/01/18 09:31 Dose: 200 mls/hr Vancomycin HCl 1,250 mg/ (Dextrose) 250 mls @ 166.667 mls/hr IVPB TuThSa@1000 [facility] Isosorbide Mononitrate (Imdur -) 60 mg PO DAILY [facility] Last Admin: 05/01/18 09:31 Dose: 60 mg Lidocaine (Lidoderm Patch -) 1 patch TP DAILY [facility] Last Admin: 05/01/18 15:30 Dose: 1 patch Lidocaine HCl (Xylocaine 2% Viscous Oral -) 20 ml MM Q6HPO PRN PRN Reason: ORAL PAIN/MOUTH SORES Last Admin: 05/01/18 09:32 Dose: 20 ml Miscellaneous (Lidoderm Patch Removal) 1 each MC DAILY@2200 [facility] Last Admin: 05/01/18 22:15 Dose: 1 each Miscellaneous (Lidoderm Patch Removal) 1 each MC DAILY@2200 [facility] Last Admin: 05/01/18 22:16 Dose: Not Given Mupirocin (Bactroban Ointment (For Decolonization) -) 1 applic NS BID [facility] Stop: 05/02/18 21:59 Last Admin: 05/01/18 22:12 Dose: Not Given Pantoprazole Sodium (Protonix Iv) 40 mg IVPUSH DAILY [facility] Last Admin: 05/01/18 09:32 Dose: 40 mg Sacubitril/Valsartan (Entresto 49 Mg-51 Mg Tablet) 1 tab PO BID [facility] Last Admin: 05/01/18 22:17 Dose: 1 tab Tamsulosin HCl (Flomax -) 0.4 mg PO DAILY@0830 [facility] Last Admin: 05/01/18 16:45 Dose: 0.4 mg - Objective Vital Signs: Vital Signs Temperature 98.8 F 05/02/18 08:00 Pulse Rate 70 05/02/18 10:15 Respiratory Rate 16 05/02/18 10:15 Blood Pressure 154/82 05/02/18 10:15 O2 Sat by Pulse Oximetry (%) 100 05/02/18 09:00 Constitutional: Yes: Calm, Thin Eyes: Yes: WNL HENT: Yes: WNL Neck: Yes: WNL Cardiovascular: Yes: Regular Rate and Rhythm, S1, S2 Respiratory: Yes: Rales (SCATTERED RALES BILATERALLY) Gastrointestinal: Yes: Normal Bowel Sounds, Soft Extremities: Yes: WNL Edema: No Labs: CBC, BMP 05/02/18 07:10 05/02/18 05:30 INR, PTT INR 1.27 (0.82-1.09) H 04/26/18 23:30 Problem List - Problems (1) Acute on chronic systolic (congestive) heart failure Code(s): I50.23 - ACUTE ON CHRONIC SYSTOLIC (CONGESTIVE) HEART FAILURE (2) CAD (coronary artery disease) Code(s): I25.10 - ATHSCL HEART DISEASE OF [place] CORONARY ARTERY W/O ANG PCTRS Qualifiers: Coronary Disease-Associated Artery/Lesion type: [place] artery [place] vs. transplanted heart: [place] heart Associated angina: without angina Qualified Code(s): I25.10 - Atherosclerotic heart disease of [place] coronary artery without angina pectoris (3) End stage renal disease Code(s): N18.6 - END STAGE RENAL DISEASE (4) Hyperlipidemia Code(s): E78.5 - HYPERLIPIDEMIA, UNSPECIFIED Qualifiers: Hyperlipidemia type: pure hypercholesterolemia Qualified Code(s): E78.00 - Pure hypercholesterolemia, unspecified; E78.0 - Pure hypercholesterolemia (5) Hypertensive cardiomyopathy Code(s): I11.9 - HYPERTENSIVE HEART DISEASE WITHOUT HEART FAILURE; I43 - CARDIOMYOPATHY IN DISEASES CLASSIFIED ELSEWHERE Qualifiers: Heart failure presence: with heart failure Qualified Code(s): I11.0 - Hypertensive heart disease with heart failure; I43 - Cardiomyopathy in diseases classified elsewhere (6) Left anterior knee pain Code(s): M25.562 - PAIN IN LEFT KNEE (7) Renal failure Code(s): N19 - UNSPECIFIED KIDNEY FAILURE Qualifiers: Renal failure chronicity: acute on chronic (8) Respiratory failure Code(s): J96.90 - RESPIRATORY FAILURE, UNSP, UNSP W HYPOXIA OR HYPERCAPNIA Qualifiers: Chronicity: acute Respiratory failure complication: unspecified whether with hypoxia or hypercapnia Qualified Code(s): J96.00 - Acute respiratory failure, unspecified whether with hypoxia or hypercapnia (9) Toxic metabolic encephalopathy Code(s): G92 - TOXIC ENCEPHALOPATHY Assessment/Plan ASSESSMENT AND PLAN: Altered Mental Status resolved s/p Acute Respiratory Failure Hypertensive Urgency resolved Hypertensive vs Uremic Encephalopathy improved Acute on Chronic Renal Failure requiring HD +Troponins likely demand ischemia Paroxysmal Atrial Fibrillation now in sinus Strep Bacteremia - abx - HD per renal - monitor urine output, creatinine - will need permacath, d/w renal timing - FiO2 to keep SpO2 >90% - BP control - PO as tolerated - DVT/GI prophylaxis DR ARELLANO
[2018-05-02] MEDS: MAGNESIUM OXIDE 400 MG TABLET (FP) PO SCH (11:34)
[2018-05-02] MEDS: CEFEPIME 0.5 GM in DEXTROSE 5%-WATER - 100 ML IVPB SCH (11:34)
[2018-05-02] MEDS: TAMSULOSIN HCL 0.4 MG CAP.ER.24H (FP) PO SCH (11:34)
--- NOTE | 2018-05-02 14:34 | PN ---
Physical Exam: SUBJECTIVE: Patient seen and examined. Having dialysis. Pt still having throat pain with L knee pain. Pt is unsure if he wants peritoneal dialysis at this point since he still feels weak and unable to walk independently. Had few vtachs on monitor, non sustained overnight, yet to have full day of increased carvedilol dose. Did not get the US for renal artery stenosis (not done in patient). For permacath today. OBJECTIVE: Vital Signs Period Temp Pulse Resp BP Sys/[place]att Pulse Ox Last 24 Hr 98.8 F-99.3 F 60-102 16-20 110-179/57-87 100-100 Vital Signs Temp 99.3 F 05/02/18 13:51 Pulse 82 05/02/18 13:51 Resp 20 05/02/18 13:51 BP 151/73 05/02/18 13:51 Pulse Ox 100 05/02/18 09:00 Intake & Output 05/01/18 05/02/18 05/02/18 23:59 11:59 23:59 Intake Total 644 312 Output Total 40 100 Balance 604 212 Intake: IV 234 312 Heparin - 25,000 Unit In 234 Normal Saline - 495 ml @ 800 UNIT/HR 16 mls/hr IV TITR [facility] Rx#:[id number] NITROGLYCERIN 25MG/D5W 0 312 250ML 25 mg In 250 ml @ 10 MCG/MIN 6 mls/hr IVPB TITR [facility] Rx#:[id number] Oral 410 Output: Urine 40 100 Void 40 100 Other: Voiding Method Urinal Urinal # Unmeasured Voids Void 1 Bowel Movement Yes: large brown well-formed # Bowel Movements 1 Body Mass Index (BMI) 18.8 GENERAL: The patient is awake, alert, and fully oriented, in no acute respiratory distress. ENT:Swollen lips improved LUNGS: Breath sounds equal, clear to auscultation bilaterally, no wheezes, no crackles HEART: Regular rate and rhythm, S1, S2 without murmur ABDOMEN: Soft, nontender, nondistended, normoactive bowel sounds EXTREMITIES: L knee mild tenderness NEUROLOGICAL: AAOx3. Moves all limbs, no facial droop. Laboratory Results - last 24 hr 05/01/18 05/02/18 05/02/18 17:58 05:30 05:30 WBC 11.0 H RBC 3.26 L Hgb 9.2 L Hct 28.1 L MCV 86.2 MCH 28.1 MCHC 32.6 RDW 17.5 H Plt Count 300 MPV 9.0 PTT (Actin FS) 47.2 H Sodium Potassium Chloride Carbon Dioxide Anion Gap BUN Creatinine Creat Clearance w eGFR POC Glucometer [id number] Random Glucose Calcium Phosphorus Magnesium Ferritin Total Bilirubin AST ALT Alkaline Phosphatase Total Protein Albumin Random Vancomycin 05/02/18 05/02/18 05/02/18 05:30 05:30 07:10 WBC 10.5 H RBC 3.26 L Hgb 9.0 L Hct 28.1 L MCV 86.3 MCH 27.5 MCHC 31.9 L RDW 17.5 H Plt Count 320 MPV 9.3 PTT (Actin FS) Sodium 137 Potassium 4.1 Chloride 98 Carbon Dioxide 28 Anion Gap 11 BUN 53 H Creatinine 7.6 H* Creat Clearance w eGFR 7.27 POC Glucometer Random Glucose 101 D Calcium 7.8 L Phosphorus 3.6 Magnesium 2.0 Ferritin 370.5 H Total Bilirubin 0.3 AST 26 D ALT 24 Alkaline Phosphatase 100 Total Protein 5.6 L Albumin 1.9 L Random Vancomycin 05/02/18 05/02/18 09:00 11:32 WBC RBC Hgb Hct MCV MCH MCHC RDW Plt Count MPV PTT (Actin FS) Sodium Potassium Chloride Carbon Dioxide Anion Gap BUN Creatinine Creat Clearance w eGFR POC Glucometer 90 Random Glucose Calcium Phosphorus Magnesium Ferritin Total Bilirubin AST ALT Alkaline Phosphatase Total Protein Albumin Random Vancomycin 11.67 Active Medications Generic Name Dose Route Start Last Admin Trade Name Freq PRN Reason Stop Dose Admin Atorvastatin Calcium 80 mg 04/27/18 22:00 05/01/18 22:15 Lipitor - PO 80 mg HS [facility] Administration Calcium Acetate 1,334 mg 04/28/18 08:00 05/01/18 16:40 Phoslo - PO 1,334 mg TIDCM [facility] Administration Carvedilol 25 mg 05/01/18 10:00 05/01/18 22:15 Coreg - PO 25 mg BID [facility] Administration Chlorhexidine Gluconate 1 applic 04/27/18 22:00 05/01/18 21:39 Hibiclens For Decolonization - TP Not Given HS [facility] Heparin Sodium (Porcine) 1,000 unit 04/27/18 18:17 04/29/18 08:20 Heparin - IVPUSH 1,000 unit PRN PRN Administration Heparin Heparin Sodium (Porcine) 5,000 unit 04/27/18 18:17 Heparin - IVPUSH PRN PRN Heparin Hydralazine HCl 50 mg 04/27/18 14:22 05/02/18 06:33 Apresoline - PO Not Given TID [facility] Heparin Sodium (Porcine) 25, 500 mls @ 16 mls/hr 04/27/18 18:17 05/01/18 21: 42 000 unit/ Sodium Chloride IV Not Given TITR [facility] Protocol 800 UNIT/HR Cefepime HCl 0.5 gm/ Dextrose 100 mls @ 200 mls/hr 04/28/18 13:00 05/02/18 11 :34 IVPB 200 mls/hr DAILY [facility] Administration Protocol Vancomycin HCl 1,250 mg/ 250 mls @ 166.667 mls/hr 05/01/18 10:00 Dextrose IVPB TuThSa@1000 [facility] Isosorbide Mononitrate 60 mg 05/01/18 10:00 05/01/18 09:31 Imdur - PO 60 mg DAILY [facility] Administration Lidocaine 1 patch 05/01/18 13:30 05/01/18 15:30 Lidoderm Patch - TP 1 patch DAILY [facility] Administration Lidocaine HCl 20 ml 04/30/18 09:08 05/01/18 09:32 Xylocaine 2% Viscous Oral - MM 20 ml Q6HPO PRN Administration ORAL PAIN/MOUTH SORES Miscellaneous 1 each 04/30/18 22:00 05/01/18 22:15 Lidoderm Patch Removal MC 1 each DAILY@2200 [facility] Administration Miscellaneous 1 each 05/01/18 22:00 05/01/18 22:16 Lidoderm Patch Removal MC Not Given DAILY@2200 [facility] Mupirocin 1 applic 04/27/18 22:00 05/01/18 22:12 Bactroban Ointment (For Decolonization) - NS 05/02/18 21:59 Not Given BID [facility] Pantoprazole Sodium 20 mg 05/03/18 10:00 Protonix - PO DAILY [facility] Sacubitril/Valsartan 1 tab 05/01/18 10:00 05/01/18 22:17 Entresto 49 Mg-51 Mg Tablet PO 1 tab BID [facility] Administration Tamsulosin HCl 0.4 mg 05/01/18 15:15 05/02/18 11:34 Flomax - PO 0.4 mg DAILY@0830 [facility] Administration Ambulatory Orders Amlodipine Besylate [Norvasc -] 10 mg PO DAILY 04/22/18 Aspirin Coated [Ecotrin -] 81 mg PO DAILY 04/22/18 Carvedilol [Coreg -] 12.5 mg PO BID 04/22/18 Donepezil HCl [Aricept -] 10 mg PO DAILY 04/22/18 Hydralazine HCl 50 mg PO TID 04/22/18 Tamsulosin HCl [Flomax] 0.4 mg PO DAILY 04/22/18 Atorvastatin Calcium 80 mg PO DAILY 04/23/18 Calcium Acetate [Phoslo -] 667 mg PO TIDCM 04/23/18 Isosorbide Mononitrate [Isosorbide Mononitrate ER] 60 mg PO DAILY 04/23/18 Sodium Bicarbonate - 650 mg PO TID 04/23/18 Current Medications Atorvastatin Calcium (Lipitor -) 80 mg PO [facility] Last Admin: 05/01/18 22:15 Dose: 80 mg Calcium Acetate (Phoslo -) 1,334 mg PO TIDCM [facility] Last Admin: 05/02/18 12:50 Dose: Not Given Carvedilol (Coreg -) 25 mg PO BID [facility] Last Admin: 05/02/18 10:50 Dose: Not Given Chlorhexidine Gluconate (Hibiclens For Decolonization -) 1 applic TP [facility] Last Admin: 05/01/18 21:39 Dose: Not Given Heparin Sodium (Porcine) (Heparin -) 1,000 unit IVPUSH PRN PRN PRN Reason: Heparin Last Admin: 04/29/18 08:20 Dose: 1,000 unit Heparin Sodium (Porcine) (Heparin -) 5,000 unit IVPUSH PRN PRN PRN Reason: Heparin Hydralazine HCl (Apresoline -) 50 mg PO TID [facility] Last Admin: 05/02/18 14:49 Dose: 50 mg Heparin Sodium (Porcine) 25, (000 unit/ Sodium Chloride) 500 mls @ 16 mls/hr IV TITR [facility]; Protocol Last Admin: 05/01/18 21:42 Dose: Not Given Cefepime HCl 0.5 gm/ Dextrose 100 mls @ 200 mls/hr IVPB DAILY [facility]; Protocol Last Admin: 05/02/18 11:34 Dose: 200 mls/hr Vancomycin HCl 1,250 mg/ (Dextrose) 250 mls @ 166.667 mls/hr IVPB TuThSa@1000 [facility] Isosorbide Mononitrate (Imdur -) 60 mg PO DAILY [facility] Last Admin: 05/02/18 10:54 Dose: Not Given Lidocaine (Lidoderm Patch -) 1 patch TP DAILY [facility] Last Admin: 05/01/18 15:30 Dose: 1 patch Lidocaine HCl (Xylocaine 2% Viscous Oral -) 20 ml MM Q6HPO PRN PRN Reason: ORAL PAIN/MOUTH SORES Last Admin: 05/01/18 09:32 Dose: 20 ml Miscellaneous (Lidoderm Patch Removal) 1 each MC DAILY@2200 [facility] Last Admin: 05/01/18 22:15 Dose: 1 each Miscellaneous (Lidoderm Patch Removal) 1 each MC DAILY@2200 [facility] Last Admin: 05/01/18 22:16 Dose: Not Given Mupirocin (Bactroban Ointment (For Decolonization) -) 1 applic NS BID [facility] Stop: 05/02/18 21:59 Last Admin: 05/01/18 22:12 Dose: Not Given Pantoprazole Sodium (Protonix -) 20 mg PO DAILY [facility] Sacubitril/Valsartan (Entresto 49 Mg-51 Mg Tablet) 1 tab PO BID [facility] Last Admin: 05/02/18 10:53 Dose: Not Given Tamsulosin HCl (Flomax -) 0.4 mg PO DAILY@0830 [facility] Last Admin: 05/02/18 11:34 Dose: 0.[address]: negative for intracranial bleed -ECHO 04/23/18: moderate to severe L ventricular systolic dysfunction Courtesy of Dr Mujica-per records from [facility]: January 17, 2015 R&LHc @ [facility]: 3 vessel CAD with [employer] SE[employer]ING RVA and OM2, elevated right and left heart pressures January 19, 2015 Echo: Mod LVH moderate decreased LVEF 40% with AK inferior and inferoseptal, mild AR, MR, mild LAE January 22, 2015 Lexiscan Myoview: Dense scar inferior wall, large lateral ischemia, inferolateral AK, LVEF 30$ January 21, 2015 Rest and redistribution Thallium: Scar involving entire inferior wall, basal to mid inferolateral, basal inferoseptal, and apex, no significant hibernating myocardiaum, dilated LV with severely decreased LVEF 27% April 23, 2018 Echo: Moderately dilated with moderate decreased LV fxn, mild decreased RV fxn, mild AR, mild LAE ASSESSMENT/PLAN: 62 yo M h/o CKD stage 5 on HD, Acute on chronic diastolic/systolic failure, paroxysmal afib, CAD s/p VA admitted to ICU for acute metabolic encephalopathy secondary to hypertensive emergency and uremia, intubated, dialyzed, found to be bacteremic now on AB ODILIA on CKD with uremic encephalopathy -Now stage 5 CKD on HD - unknown Cr baseline, h/o dialysis, 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 [facility] - HD as needed - More permanent access pending-permacath, PD catheter on hold for now as pt is unsure -Trialysis catheter - HD monday (04/28/18) -For permacath today at 5pm Sepsis Improved-no fevers On cefepime and vanco repeat blood cultures negative, Afib Previously diagnosed in [facility] EKG 04/26/18- Afib Cont Heparin gtt Cardiology consult- Dr Mujica- apprec recs Cont carvedilol resume coumadin per INR once PC has been placed Knee pain Pt still c/o of pain Swelling improved Flash pulmonary edema resolved Pt had SOB, with marked elevated BP Received high flow, CPAP Received nitroglycerin R/O renal a stenosis- duplex USS- has to be done as an outpatient Cont Entresto added- (Diovan) ARB removed Carvedilol 25mg bid Acute Metabolic Encephalopathy - 2/2 hypertensive /uremic encephalopathy - Resolved -Pt extubated, tolerating well, on NC -OOB in to chair -PT Sore throat s/p extubation (04/26/18) Lidocaine swish and spit Speech and swallow re-eval soft regular/renal diet Uremia -Pt receiving HD -Pt got trialysis cath on monday (04/28/18) - Manager Personnel Selection on 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 recs -Phoslo 2tabs before meals - For permacath today Hypertensive encephalopathy/CAD s/p VA - Blood pressure intermittently elevated -May improve with dialysis, pt making minimum urine -Pt presented with SBP of 200 -Pt was on ASA -Continue carvedilol 25mg bid, hydralazine 50 tid, resume Imdur 60 qd (BiDil ) and Lipitor 80 qd, Diovan, changed to entresto Acute hypoxic respiratory failure, Pt extubated Maintained on NC-3L to maintain sats flash Pulmonary edema- resolved Elevated troponin - Likely demand ischemia, or related to poor kidney function with poor excretion - peaked-0.45>>0.39 Acute on chronic diastolic/systolic failure Ischemic failure secondary to VA Pt had pulmonary edema in setting of hypertensive emergency with background fluid overload from CKD Not currently in exacerbation Cont hydralazine 50 tid, and carvedilol entresto now -to f/u with Dr. Jeannette Kaiser at [facility] upon d/c Dementia - aricept on hold BPH - Resumed flomax FEN - Hold IVF dialysis pt - Replete lytes PRN, or dialyze as needed dispo; to start coumadin Visit type - Emergency Visit Emergency Visit: Yes ED Registration Date: 04/22/18 Care time: The patient presented to the Emergency Department on the above date and was hospitalized for further evaluation of their emergent condition. - New Patient This patient is new to me today: No - Critical Care Critical Care patient: No - Discharge Referral Referred to [facility] No
[2018-05-02] MEDS ORDERED: LIDOCAINE HCL 1%, 10 MG/ML (20ML VIAL) ONE (15:37)
[2018-05-02] MEDS ORDERED: HEPARIN NA (PORCINE) 5,000 UNITS/ML 1ML VIAL ONE ×2 (15:37→17:36)
--- NOTE | 2018-05-02 15:58 | PN ---
Teaching Attending Note Name of Resident: Geni Sorensen ATTENDING PHYSICIAN STATEMENT I saw and evaluated the patient. I reviewed the resident's note and discussed the case with the resident. I agree with the resident's findings and plan as documented. SUBJECTIVE:pt was not seen as was done for procedure OBJECTIVE: Last Vital Signs Temp Pulse Resp BP Pulse Ox 99.3 F 82 20 151/73 100 05/02/18 13:51 05/02/18 13:51 05/02/18 13:51 05/02/18 13:51 05/02/18 09:00 ASSESSMENT AND PLAN: 62yo M with PMH CKD (has refused HD in the past), and CAD presenting with progressively worsening shortness of breath and altered mental status. in the ER was found to have SBP 240. anabelle larkin was activated in the ER 1. ACute toxic/metabolic encephalopathy-s/p shiley placement 04/22 and emergent HD done. and HTN controlled. now returned to baseline. 2. acute hypoxic respiratory failure- due to early ARDS with poor mental state. intubated and now extubated. saturating well on RA 3. HTN crisis- above goal but overall improved. unable to do doppler as outpatient procedure. will need to be done as outpatient. titrate medications as tolerated. 4. Sepsis due to strep bacteremia- clinically improved. repeat BCx negative. on cefepime/vanco (with HD) day 5. plan to do vanco with HD once schedule is started. check vanco level tomorrow. ID on board. 5. Afib wiht RVR-improved. on coreg. on heparin ggt. can bridge to coumadin once no further procedures are planned. cardio on board 6. hyperphosphatemia- due to renal failure- now resolved. on phoslo 7. acute on CKD stage V now on HD-RIJ shiley placed with HD. pt was considering PD however now changed his mind. NPO for permacath procedure today. will do vein prepping as outpatient. needs more detailed convo with Renal to determine what pt is a good candidate for. cont HD per nephro 8. L knee swelling- reports as improved. seen by ortho. likely hematoma no intervention at this time 9. dysuria- UA negative for infection 10. Elevated troponin- likely demand ischemia. can have further ischemia workup as outpatient 11. Normocytic anemia- likely diluational. no signs of bleeding. Hgb stable. iron studies pending. no indication for txn 12. dementia- on aricept 13. DVT ppx- hep ggt
--- NOTE | 2018-05-02 16:20 | PN ---
Progress Note, Physician History of Present Illness: stable no new issues plan for permacath - Current Medication List Current Medications: Active Medications Atorvastatin Calcium (Lipitor -) 80 mg PO HS [facility] Last Admin: 05/01/18 22:15 Dose: 80 mg Calcium Acetate (Phoslo -) 1,334 mg PO TIDCM [facility] Last Admin: 05/02/18 12:50 Dose: Not Given Carvedilol (Coreg -) 25 mg PO BID [facility] Last Admin: 05/02/18 10:50 Dose: Not Given Chlorhexidine Gluconate (Hibiclens For Decolonization -) 1 applic TP HS [facility] Last Admin: 05/01/18 21:39 Dose: Not Given Heparin Sodium (Porcine) (Heparin -) 1,000 unit IVPUSH PRN PRN PRN Reason: Heparin Last Admin: 04/29/18 08:20 Dose: 1,000 unit Heparin Sodium (Porcine) (Heparin -) 5,000 unit IVPUSH PRN PRN PRN Reason: Heparin Hydralazine HCl (Apresoline -) 50 mg PO TID [facility] Last Admin: 05/02/18 14:49 Dose: 50 mg Heparin Sodium (Porcine) 25, (000 unit/ Sodium Chloride) 500 mls @ 16 mls/hr IV TITR [facility]; Protocol Last Admin: 05/01/18 21:42 Dose: Not Given Cefepime HCl 0.5 gm/ Dextrose 100 mls @ 200 mls/hr IVPB DAILY [facility]; Protocol Last Admin: 05/02/18 11:34 Dose: 200 mls/hr Vancomycin HCl 1,250 mg/ (Dextrose) 250 mls @ 166.667 mls/hr IVPB TuThSa@1000 [facility] Isosorbide Mononitrate (Imdur -) 60 mg PO DAILY [facility] Last Admin: 05/02/18 10:54 Dose: Not Given Lidocaine (Lidoderm Patch -) 1 patch TP DAILY [facility] Last Admin: 05/01/18 15:30 Dose: 1 patch Lidocaine HCl (Xylocaine 2% Viscous Oral -) 20 ml MM Q6HPO PRN PRN Reason: ORAL PAIN/MOUTH SORES Last Admin: 05/01/18 09:32 Dose: 20 ml Miscellaneous (Lidoderm Patch Removal) 1 each MC DAILY@2200 [facility] Last Admin: 05/01/18 22:15 Dose: 1 each Miscellaneous (Lidoderm Patch Removal) 1 each MC DAILY@0 [facility] Last Admin: 05/01/18 22:16 Dose: Not Given Mupirocin (Bactroban Ointment (For Decolonization) -) 1 applic NS BID [facility] Stop: 05/02/18 21:59 Last Admin: 05/01/18 22:12 Dose: Not Given Pantoprazole Sodium (Protonix -) 20 mg PO DAILY [facility] Sacubitril/Valsartan (Entresto 49 Mg-51 Mg Tablet) 1 tab PO BID [facility] Last Admin: 05/02/18 10:53 Dose: Not Given Tamsulosin HCl (Flomax -) 0.4 mg PO DAILY@0830 [facility] Last Admin: 05/02/18 11:34 Dose: 0.4 mg - Objective Vital Signs: Vital Signs Temperature 99.3 F 05/02/18 13:51 Pulse Rate 82 05/02/18 13:51 Respiratory Rate 20 05/02/18 13:51 Blood Pressure 151/73 05/02/18 13:51 O2 Sat by Pulse Oximetry (%) 100 05/02/18 09:00 Constitutional: Yes: No Distress, Calm Cardiovascular: Yes: Regular Rate and Rhythm Respiratory: Yes: Regular, CTA Bilaterally Gastrointestinal: Yes: Normal Bowel Sounds, Soft Musculoskeletal: Yes: WNL Neurological: Yes: Alert, Oriented Psychiatric: Yes: Alert, Oriented Labs: CBC, BMP 05/02/18 07:10 05/02/18 05:30 INR, PTT INR 1.27 (0.82-1.09) H 04/26/18 23:30 Assessment/Plan Problem List - Problems (1) Acute on chronic systolic (congestive) heart failure Code(s): I50.23 - ACUTE ON CHRONIC SYSTOLIC (CONGESTIVE) HEART FAILURE (2) CAD (coronary artery disease) Code(s): I25.10 - ATHSCL HEART DISEASE OF [place] CORONARY ARTERY W/O ANG PCTRS Qualifiers: Coronary Disease-Associated Artery/Lesion type: [place] artery [place] vs. transplanted heart: [place] heart Associated angina: without angina Qualified Code(s): I25.10 - Atherosclerotic heart disease of [place] coronary artery without angina pectoris (3) End stage renal disease Code(s): N18.6 - END STAGE RENAL DISEASE (4) Hyperlipidemia Code(s): E78.5 - HYPERLIPIDEMIA, UNSPECIFIED Qualifiers: Hyperlipidemia type: pure hypercholesterolemia Qualified Code(s): E78.00 - Pure hypercholesterolemia, unspecified; E78.0 - Pure hypercholesterolemia (5) Hypertensive cardiomyopathy Code(s): I11.9 - HYPERTENSIVE HEART DISEASE WITHOUT HEART FAILURE; I43 - CARDIOMYOPATHY IN DISEASES CLASSIFIED ELSEWHERE Qualifiers: Heart failure presence: with heart failure Qualified Code(s): I11.0 - Hypertensive heart disease with heart failure; I43 - Cardiomyopathy in diseases classified elsewhere (6) Ischemic cardiomyopathy Code(s): I25.5 - ISCHEMIC CARDIOMYOPATHY (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 male admitted with SOB/Acute respiratory failure, Pulmonary congestion, Fever, with Femoral catheter in place Sepsis PNA - Klebsiella/MRSA Streptococcal bacteremia Persistent Fever Lt knee pain/mild swelling Renal Failure - now on HD CHF/Pulm edema Hypertensive urgency CAD s/p UT s/p hypoxic resp failure continue abx follow vanco levels rest continue current mgmt dialysis
[2018-05-02] MEDS ORDERED: ONDANSETRON 4 MG/2 ML VIAL IVPUSH PRN ×2 (16:58→18:24)
[2018-05-02] MEDS ORDERED: MIDAZOLAM HCL 2 MG/2 ML SINGLE DOSE VIAL ONE (17:15)
[2018-05-02] MEDS ORDERED: PROPOFOL 20 ML ONE (17:21)
[2018-05-02] MEDS ORDERED: METOPROLOL TARTRATE 5 MG/5 ML VIAL ONE ×2 (17:22→21:42)
[2018-05-02] MEDS ORDERED: LIDOCAINE HCL 1%, 10 MG/ML (20ML VIAL) NR ONE (17:27)
--- NOTE | 2018-05-02 17:52 | OP ---
Operative Note - Note: Operative Date: 05/02/18 Pre-Operative Diagnosis: ESRD Operation: Placement Permacath. Removal Shiley catheter Findings: Patent left IJ Implants: 32 cm Permacath Post-Operative Diagnosis: Same as Pre-op Surgeon: Suraj Russ Anesthesiologist/CONSTRUCTION SAFETY MANAGER: Esau Pedroza Anesthesia: Fractional
[2018-05-02] MEDS ORDERED: LIDOCAINE VISCOUS 2% ORAL/TOP 20 ML UNIT-DOSE CUP MM PRN (18:24)
[2018-05-02] MEDS ORDERED: HEPARIN - 25,000 UNIT in SODIUM CHLORIDE 495 ML IV SCH (18:24)
[2018-05-02] MEDS ORDERED: HEPARIN NA (PORCINE) 5,000 UNITS/ML 1ML VIAL IVPUSH PRN ×4 (18:24)
[2018-05-02] MEDS ORDERED: ACETAMINOPHEN 325 MG TABLET (FP) ONE (20:05)
[2018-05-02] MEDS ORDERED: ACETAMINOPHEN 325 MG TABLET (FP) PO ONE (20:30)
[2018-05-02] MEDS ORDERED: PT OWN MED DRAWER 7, Y5N ONE (20:58)
[2018-05-02] MEDS: DONEPEZIL HCL 10 MG TABLET (FP) PO SCH (21:00)
[2018-05-02] MEDS: ATORVASTATIN CA 80 MG TABLET (FP) PO SCH (21:01)
[2018-05-02] MEDS ORDERED: METOPROLOL TARTRATE 5 MG/5 ML VIAL IVPUSH ONE (21:39)
[2018-05-02] MEDS ORDERED: METOPROLOL TARTRATE 5 MG/5 ML VIAL IVPUSH PRN (21:40)
[2018-05-02] MEDS ORDERED: SACUBITRIL/VALSARTAN 49 MG-51 MG TABLET PO SCH (22:00)
[2018-05-02] MEDS ORDERED: MUPIROCIN 2% TOPICAL OINTMENT FOR DECOLONIZATION NS SCH (22:00)
[2018-05-02] MEDS ORDERED: DONEPEZIL HCL 10 MG TABLET (FP) PO SCH (22:00)
[2018-05-02] MEDS ORDERED: LIDOCAINE PATCH REMOVAL MC SCH ×2 (22:00)
[2018-05-02] MEDS ORDERED: CHLORHEXIDINE GLUCONATE 4% CLEANSER FOR DECOLONIZATION TP SCH (22:00)
[2018-05-03] MEDS: HEPARIN - 25,000 UNIT in SODIUM CHLORIDE 495 ML IV SCH ×2 (00:15→12:49)
--- NOTE | 2018-05-03 06:11 | OP ---
DATE OF OPERATION: 05/02/2018 SURGEON: Yu Trivedi MD OPERATION: Placement of permacath and removal of Shiley catheter. PREOPERATIVE DIAGNOSIS: End-stage renal disease. POSTOPERATIVE DIAGNOSIS: End-stage renal disease. ANESTHESIA: Fractional. ANESTHESIOLOGIST: Mercedes Pedroza DO OPERATIVE FINDINGS: The left internal jugular vein was patent with normal flow. OPERATIVE PROCEDURE: Following routine patient identification, intravenous sedation was established. The left neck and chest were prepped with ChloraPrep. Time-out was performed. Using real-time duplex imaging, the left internal jugular vein was identified. Lidocaine 1% was infiltrated in the skin lateral to the vein, and the vein was cannulated under ultrasound guidance with a micropuncture needle. A wire was passed proximally under fluoroscopic guidance into the innominate vein. The needle was exchanged for a 5-Anguillan catheter, and then, the wire was exchanged for a J-tipped wire, which was advanced through the right atrium and into the inferior vena cava. Additional Xylocaine was infiltrated into the chest wall, and a stab wound was made. A 32-cm tip-to-cuff permacath was then passed with a tunneler from the chest to the neck with positioning of the subcutaneous cuff. The tractor on the wire was then dilated, and the introducer placed into the superior vena cava. The dilator and wire were removed. The permacath was passed through the introducer, and the tip positioned in the right atrium. The introducer was peeled away, leaving the catheter in place. Blood was aspirated from both sides of the catheter, which were then flushed with saline and heparin solution. The neck wound was closed with a subcuticular suture of 3-0 Vicryl, and the catheter was sutured to the skin with 3-0 nylon at the exit site. Sterile dressings were applied. The Shiley in the right neck was then freed and removed with pressure applied after bleeding ceased. Sterile dressings were applied, and the patient was taken to the recovery room. YU TRIVEDI M.D. [id number]
[2018-05-03 06:20] LABS: BASO % 0.7 % (0-2.0); HEMATOCRIT 28.7 % (35.4-49); HEMOGLOBIN 9.3 GM/dL (11.7-16.9); LYMPH % 10.1 % (8-40); MCH 28.3 pg (25.7-33.7); MCHC 32.6 g/dl (32.0-35.9); MEAN CELL VOLUME 86.7 fl (80-96); MEAN PLT VOLUME 8.6 fl (7.5-11.1); MONO % 8.7 % (3.8-10.2); NEUT % 76.5 % (42.8-82.8); PLATELET COUNT 299 K/MM3 (134-434); RDW 17.7 % (11.9-15.9); WHITE BLOOD COUNT 11.4 K/mm3 (4.0-10.0)
[2018-05-03] MEDS: hydrALAZINE HCL 50 MG TABLET (FP) PO SCH ×3 (06:20→22:27)
[2018-05-03 06:49] LABS: CHLORIDE 99 mmol/L (98-107); POTASSIUM 3.8 mmol/L (3.5-5.1); SODIUM 138 mmol/L (136-145)
[2018-05-03 06:59] LABS: ALBUMIN 1.9 g/dl (3.4-5.0); ALK PHOS 104 U/L (45-117); ANION GAP 9 (8-16); BILIRUBIN,TOTAL 0.3 mg/dL (0.2-1.0); BLOOD UREA NITROGEN 38 mg/dL (7-18); CALCIUM 8.2 mg/dL (8.5-10.1); CO2 30 mmol/L (21-32); CREATININE 6.1 mg/dL (0.7-1.3); GLUCOSE,RANDOM 106 mg/dL (74-106); PHOSPHOROUS 4.1 mg/dL (2.5-4.9); SGOT/AST 32 U/L (15-37); SGPT/ALT 33 U/L (12-78); TOT PROT 5.7 g/dl (6.4-8.2)
[2018-05-03 08:11] LABS: SERUM IRON SATURATION 27 % (15-55); TOTAL IRON BINDING CAPACITY 195 ug/dL (250-450); UIBC 142 ug/dL (111-343)
[2018-05-03] MEDS: TAMSULOSIN HCL 0.4 MG CAP.ER.24H (FP) PO SCH (08:31)
--- NOTE | 2018-05-03 09:10 | PN ---
Progress Note, Physician History of Present Illness: Dyspnea improving with HD/UF. converted to SR with PVC, s/p left PC and removal of Shiley. - Current Medication List Current Medications: Active Medications Atorvastatin Calcium (Lipitor -) 80 mg PO HS [facility] Last Admin: 05/02/18 21:01 Dose: 80 mg Calcium Acetate (Phoslo -) 1,334 mg PO TIDCM [facility] Carvedilol (Coreg -) 25 mg PO BID [facility] Last Admin: 05/02/18 21:00 Dose: 25 mg Donepezil HCl (Aricept -) 10 mg PO HS [facility] Last Admin: 05/02/18 21:00 Dose: 10 mg Hydralazine HCl (Apresoline -) 50 mg PO TID [facility] Last Admin: 05/03/18 06:20 Dose: 50 mg Cefepime HCl 0.5 gm/ Dextrose 100 mls @ 200 mls/hr IVPB DAILY [facility]; Protocol Vancomycin HCl (Vancomycin 1 Gm Premix -) 1 gm in 200 mls @ 133.333 mls/hr IVPB TuThSa@1000 [facility] Heparin Sodium (Porcine) 25, (000 unit/ Sodium Chloride) 500 mls @ 16 mls/hr IV TITR [facility]; Protocol Last Admin: 05/03/18 00:15 Dose: 800 unit/hr, 16 mls/hr Isosorbide Mononitrate (Imdur -) 60 mg PO DAILY [facility] Lidocaine (Lidoderm Patch -) 1 patch TP DAILY [facility] Lidocaine HCl (Xylocaine 2% Viscous Oral -) 20 ml MM Q6H PRN PRN Reason: ORAL PAIN/MOUTH SORES Metoprolol Tartrate (Lopressor Injection -) 5 mg IVPUSH Q4H PRN PRN Reason: HYPERTENSION Miscellaneous (Lidoderm Patch Removal) 1 each MC DAILY@2200 [facility] Pantoprazole Sodium (Protonix -) 20 mg PO DAILY [facility] Sacubitril/Valsartan (Entresto 49 Mg-51 Mg Tablet) 1 tab PO BID [facility] Last Admin: 05/02/18 21:15 Dose: 1 tab Tamsulosin HCl (Flomax -) 0.4 mg PO DAILY@0830 [facility] - Objective Vital Signs: Vital Signs Temperature 99.4 F 05/03/18 06:00 Pulse Rate 83 05/03/18 06:00 Respiratory Rate 20 05/03/18 06:00 Blood Pressure 165/79 05/03/18 06:00 O2 Sat by Pulse Oximetry (%) 100 05/02/18 21:00 Constitutional: Yes: No Distress, Calm Neck: Yes: Supple Cardiovascular: Yes: Pulse Irregular Respiratory: Yes: Regular, Diminished, On Nasal O2 Gastrointestinal: Yes: Normal Bowel Sounds, Soft Edema: No Labs: CBC, BMP 05/03/18 05:30 05/03/18 05:30 INR, PTT INR 1.27 (0.82-1.09) H 04/26/18 23:30 Problem List - Problems (1) Acute on chronic systolic (congestive) heart failure Code(s): I50.23 - ACUTE ON CHRONIC SYSTOLIC (CONGESTIVE) HEART FAILURE (2) Hypertensive cardiomyopathy Code(s): I11.9 - HYPERTENSIVE HEART DISEASE WITHOUT HEART FAILURE; I43 - CARDIOMYOPATHY IN DISEASES CLASSIFIED ELSEWHERE Qualifiers: Heart failure presence: with heart failure Qualified Code(s): I11.0 - Hypertensive heart disease with heart failure; I43 - Cardiomyopathy in diseases classified elsewhere (3) Hyperlipidemia Code(s): E78.5 - HYPERLIPIDEMIA, UNSPECIFIED Qualifiers: Hyperlipidemia type: pure hypercholesterolemia Qualified Code(s): E78.00 - Pure hypercholesterolemia, unspecified; E78.0 - Pure hypercholesterolemia (4) Ischemic cardiomyopathy Code(s): I25.5 - ISCHEMIC CARDIOMYOPATHY (5) End stage renal disease Code(s): N18.6 - END STAGE RENAL DISEASE (6) Old inferolateral myocardial infarction Code(s): I25.2 - OLD MYOCARDIAL INFARCTION Assessment/Plan January 17, 2015 R&LHc @ [facility]: 3 vessel CAD with [employer] RVA and OM2, elevated right and left heart pressures January 19, 2015 Echo: Mod LVH moderate decreased LVEF 40% with AK inferior and inferoseptal, mild AR, MR, mild LAE January 22, 2015 Lexiscan Myoview: Dense scar inferior wall, large lateral ischemia, inferolateral AK, LVEF 30$ January 21, 2015 Rest and redistribution Thallium: Scar involving entire inferior wall, basal to mid inferolateral, basal inferoseptal, and apex, no significant hibernating myocardiaum, dilated LV with severely decreased LVEF 27% April 23, 2018 Echo: Moderately dilated with moderate decreased LV fxn, mild decreased RV fxn, mild AR, mild LAE 1. Acute on chronic diastolic/systolic failure and pulmonary edema referable to 2. Hypertensive urgency in context of dietary/medical indiscretion (previously declined HD), r/o renal artery stenosis 3. Post acute hypoxic respiratory failure 4. CAD s/p ID, demand ischemic injury 5. Ischemic cardiomyopathy (moderate) 6. Acute on Chronic Renal Failure requiring HD 7. Paroxysmal atrial fibrillation 8. Resolved Altered Mental Status r/o Hypertensive vs Uremic Encephalopathy 9. Anemia of CKD 10. PNA - Klebsiella/MRSA, Streptococcal bacteremia P:1. Volume removal via UF/HD via left PC 2. Continue carvedilol 25 bid, hydralazine 50 tid, Imdur 60 qd (BiDil), Lipitor 80 qd, and uptitrate Entresto 97/103 bid 3. Continue heparin gtt -> coumadin per INR if no other procedures planned, GI protection 4. Renal arterial Doppler to R/O renal artery stenosis 5. O2 to maintain saturation, complete abx course per ID 6. Pt to f/u with Dr. Jeannette Kaiser at [facility] upon d/c
[2018-05-03] MEDS ORDERED: PANTOPRAZOLE 20 MG TABLET (FP) PO SCH (10:00)
[2018-05-03] MEDS ORDERED: VANCOMYCIN 1 GM PREMIX - 1 GM/200 ML BAG IVPB SCH ×2 (10:00)
[2018-05-03] MEDS ORDERED: CEFEPIME 0.5 GM in DEXTROSE 5%-WATER - 100 ML IVPB SCH (10:00)
--- NOTE | 2018-05-03 11:20 | PN ---
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 Pt upgraded to soft diet on 04/27 and reg diet 04/30. Pt seen sitting OOB in chair, looking much stronger.Voice is euphonic. Pt reports no difficulty in general with reg diet./ thin liquids, although he was coughing dinnertime, with increased weakness after dialysis. Swallow reassessed with mildly weak laryngeal elevation/excursion but without overt symptoms of aspiration. Pt does report some congestion, expectorating phlegm. Monitor PO tolerance. Instructed to eat slowly and carefully, especially after dialysis and to eliminate straw drinking for now. If signs/symptoms of dysphagia, may need MBS, as in pt or out pt.
[2018-05-03] MEDS: CALCIUM ACETATE 667 MG CAPSULE (FP) PO SCH ×3 (11:29→17:40)
[2018-05-03] MEDS: CARVEDILOL 25 MG TABLET (FP) PO SCH ×2 (11:31→22:27)
[2018-05-03] MEDS: SACUBITRIL/VALSARTAN 97 MG-103 MG TABLET PO SCH ×2 (11:32→22:28)
[2018-05-03] MEDS: LIDOCAINE 5% TOPICAL PATCH TP SCH (11:33)
[2018-05-03] MEDS: ISOSORBIDE MONONITRATE 60 MG TAB.SR.24H (FP) PO SCH (11:33)
[2018-05-03] MEDS: PANTOPRAZOLE 20 MG TABLET (FP) PO SCH (11:34)
--- NOTE | 2018-05-03 12:00 | PN ---
Physical Exam: SUBJECTIVE: Patient seen and examined. Reported SOB after dialysis yesterday. Noted he had afib with RVR. Pt says he feels weak and is unable to walk. Was NPO for 2 days back to back for procedures/tests. Is hungry and wants to eat. Will start coumadin today. Feels knee pain is same. Pt said he does not want to go to a SNF, would rather go home and do PT at home. OBJECTIVE: Vital Signs Period Temp Pulse Resp BP Sys/Wyatt Pulse Ox Last 24 Hr 99.0 F-99.4 F 67-156 11-20 138-165/60-88 99-100 Vital Signs Temp 99.4 F 05/03/18 06:00 Pulse 83 05/03/18 06:00 Resp 20 05/03/18 06:00 BP 165/79 05/03/18 06:00 Pulse Ox 100 05/02/18 21:00 Intake & Output 05/02/18 05/02/18 05/03/18 11:59 23:59 11:59 Intake Total 312 750 114 Output Total 100 0 Balance 212 750 114 Weight 58.967 kg Intake: IV 312 150 114 Heparin - 25,000 Unit In 100 Normal Saline - 495 ml @ 800 UNIT/HR 16 mls/hr IV TITR [facility] Rx#:[id number] Heparin - 25,000 Unit In 114 Normal Saline - 495 ml @ 800 UNIT/HR 16 mls/hr IV TITR [facility] Rx#:[id number] NITROGLYCERIN 25MG/D5W 312 250ML 25 mg In 250 ml @ 10 MCG/MIN 6 mls/hr IVPB TITR [facility] Rx#:[id number] IVPB 300 Oral 300 Output: Urine 100 0 Void 100 Other: Voiding Method Urinal Urinal # Unmeasured Voids Void 2 Bowel Movement Yes: large brown well-formed Yes: Small Solid # Bowel Movements 1 1 Weight Measurement Method Standing Scale GENERAL: The patient is awake, alert, and fully oriented, in no acute respiratory distress, on RA. EYES: PERRL, extraocular movements intact, with glasses on ENT: Swollen lips resolved LUNGS: Scanty crackles R lungs. Permacath- L HEART: Regular rate and rhythm, S1, S2 without murmur ABDOMEN: scaphoid, Soft, nontender, nondistended, normoactive bowel sounds EXTREMITIES: 2+ pulses, warm, well-perfused, no edema. Knee swelling resolved, mild tenderness. NEUROLOGICAL: AAOx3, no facial droop. Able to move all extremtities. Muscle strength 4+/5 Laboratory Results - last 24 hr 05/02/18 05/02/18 05/02/18 05:30 11:32 18:53 WBC RBC Hgb Hct MCV MCH MCHC RDW Plt Count MPV Absolute Neuts (auto) Neutrophils % Lymphocytes % Monocytes % Eosinophils % Basophils % Nucleated RBC % PTT (Actin FS) Sodium Potassium Chloride Carbon Dioxide Anion Gap BUN Creatinine Creat Clearance w eGFR POC Glucometer 90 132 Random Glucose Calcium Phosphorus Magnesium Iron 53 TIBC 195 L Iron Saturation 27 Total Bilirubin AST ALT Alkaline Phosphatase Total Protein Albumin 05/03/18 05/03/18 05/03/18 05:30 05:30 05:30 WBC 11.4 H RBC 3.30 L Hgb 9.3 L Hct 28.7 L MCV 86.7 MCH 28.3 MCHC 32.6 RDW 17.7 H Plt Count 299 MPV 8.6 Absolute Neuts (auto) 8.7 Neutrophils % 76.5 Lymphocytes % 10.1 Monocytes % 8.7 Eosinophils % 4.0 Basophils % 0.7 Nucleated RBC % 0 PTT (Actin FS) 28.2 D Sodium 138 Potassium 3.8 Chloride 99 Carbon Dioxide 30 Anion Gap 9 BUN 38 H Creatinine 6.1 H Creat Clearance w eGFR 9.36 POC Glucometer Random Glucose 106 Calcium 8.2 L Phosphorus 4.1 Magnesium 2.0 Iron TIBC Iron Saturation Total Bilirubin 0.3 AST 32 D ALT 33 D Alkaline Phosphatase 104 Total Protein 5.7 L Albumin 1.9 L Active Medications Generic Name Dose Route Start Last Admin Trade Name Freq PRN Reason Stop Dose Admin Atorvastatin Calcium 80 mg 05/02/18 22:00 05/02/18 21:01 Lipitor - PO 80 mg HS [facility] Administration Calcium Acetate 1,334 mg 05/03/18 08:00 05/03/18 11:31 Phoslo - PO 1,334 mg TIDCM [facility] Administration Carvedilol 25 mg 05/02/18 22:00 05/03/18 11:31 Coreg - PO 25 mg BID [facility] Administration Donepezil HCl 10 mg 05/02/18 22:00 05/02/18 21:00 Aricept - PO 10 mg HS [facility] Administration Hydralazine HCl 50 mg 05/02/18 22:00 05/03/18 06:20 Apresoline - PO 50 mg TID [facility] Administration Cefepime HCl 0.5 gm/ Dextrose 100 mls @ 200 mls/hr 05/03/18 10:00 IVPB DAILY [facility] Protocol Vancomycin HCl 1 gm in 200 mls @ 133.333 mls/hr 05/03/18 10:00 Vancomycin 1 Gm Premix - IVPB TuThSa@1000 [facility] Heparin Sodium (Porcine) 25, 500 mls @ 16 mls/hr 05/03/18 00:00 05/03/18 00: 15 000 unit/ Sodium Chloride IV 800 unit/hr TITR [facility] 16 mls/hr Administration Protocol 800 UNIT/HR Isosorbide Mononitrate 60 mg 05/03/18 10:00 05/03/18 11:33 Imdur - PO 60 mg DAILY [facility] Administration Lidocaine 1 patch 05/03/18 10:00 05/03/18 11:33 Lidoderm Patch - TP 1 patch DAILY [facility] Administration Lidocaine HCl 20 ml 05/02/18 18:24 Xylocaine 2% Viscous Oral - MM Q6H PRN ORAL PAIN/MOUTH SORES Metoprolol Tartrate 5 mg 05/02/18 21:40 Lopressor Injection - IVPUSH Q4H PRN HYPERTENSION Miscellaneous 1 each 05/03/18 22:00 Lidoderm Patch Removal MC DAILY@2200 [facility] Pantoprazole Sodium 20 mg 05/03/18 10:00 05/03/18 11:34 Protonix - PO 20 mg DAILY [facility] Administration Sacubitril/Valsartan 1 tab 05/03/18 10:00 05/03/18 11:32 Entresto 97 Mg-103 Mg Tablet PO 1 tab BID [facility] Administration Tamsulosin HCl 0.4 mg 05/03/18 08:30 05/03/18 08:31 Flomax - PO 0.4 mg DAILY@0830 [facility] Administration Head CT: negative for intracranial bleed -ECHO 04/23/18: moderate to severe L ventricular systolic dysfunction Courtesy of Dr Mujica-amita records from [facility]: January 17, 2015 R&LHc @ [facility]: 3 vessel CAD with [employer] RVA and OM2, elevated right and left heart pressures January 19, 2015 Echo: Mod LVH moderate decreased LVEF 40% with AK inferior and inferoseptal, mild AR, MR, mild LAE January 22, 2015 Lexiscan Myoview: Dense scar inferior wall, large lateral ischemia, inferolateral AK, LVEF 30$ January 21, 2015 Rest and redistribution Thallium: Scar involving entire inferior wall, basal to mid inferolateral, basal inferoseptal, and apex, no significant hibernating myocardium, dilated LV with severely decreased LVEF 27% April 23, 2018 Echo: Moderately dilated with moderate decreased LV fxn, mild decreased RV fxn, mild AR, mild LAE ASSESSMENT/PLAN: 62 yo M h/o CKD stage 5 on HD, Acute on chronic diastolic/systolic failure, paroxysmal afib, CAD s/p WA admitted to ICU for acute metabolic encephalopathy secondary to hypertensive emergency and uremia, intubated, dialyzed, found to be bacteremic now on AB PEM Generalized weakness, Low albumin, inadequate intake (had to be NPO for procedures), hx of dysphagia Diet upgraded from puree per speech and swallow 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 Physical therapy Renal consult ODILIA on CKD with uremic encephalopathy -Now stage 5 CKD on HD - unknown Cr baseline, h/o dialysis, 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 [facility] - HD as needed - More permanent access pending-permacath, PD catheter on hold for now as pt is unsure - permacath done (05/02/18), trialysis catheter removed Sepsis Improved-no fevers On cefepime and vanco- renally dosed per Dr Lorenzo repeat blood cultures negative, Afib Previously diagnosed in [facility] EKG 04/26/18- Afib Cont Heparin gtt Cardiology consult- Dr Mujica- apprec recs Cont carvedilol resume coumadin per INR once PC has been placed (Pharmacy records did not show coumadin, but plavix 75mg daily) Will start him on 5mg coumadin (05/03/18)- Day 1 Knee pain Pt still c/o of pain Swelling improved No tenderness Monitor Flash pulmonary edema resolved Pt had SOB, with marked elevated BP Received high flow, CPAP Received nitroglycerin R/O renal a stenosis- duplex USS- has to be done as an outpatient Cont Entresto added- (Diovan) ARB removed Carvedilol 25mg bid Acute Metabolic Encephalopathy - 2/2 hypertensive /uremic encephalopathy - Resolved -Pt extubated (04/26/18), tolerating well, on NC -OOB in to chair -PT Sore throat Improving s/p extubation (04/26/18) Lidocaine swish and spit Speech and swallow re-eval soft regular/renal diet Uremia -Pt receiving HD -Pt got trialysis cath on monday (04/28/18) - Belt Knife Feeder on 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 recs -Phoslo 2tabs before meals - For permacath today Hypertensive encephalopathy/CAD s/p WA - Blood pressure intermittently elevated -May improve with dialysis, pt making minimum urine -Pt presented with SBP of 200 -Pt was on ASA -Continue carvedilol 25mg bid, hydralazine 50 tid, resume Imdur 60 qd (BiDil ) and Lipitor 80 qd, Diovan, changed to entresto Acute hypoxic respiratory failure, Pt extubated (04/26/18), intermittent NC use Maintained on NC-3L to maintain sats flash Pulmonary edema- resolved Elevated troponin - Likely demand ischemia, or related to poor kidney function with poor excretion - peaked-0.45>>0.39 Acute on chronic diastolic/systolic failure Ischemic failure secondary to WA Pt had pulmonary edema in setting of hypertensive emergency with background fluid overload from CKD Not currently in exacerbation Cont hydralazine 50 tid, and carvedilol entresto now -to f/u with Dr. Jeannette Kaiser at [facility] upon d/c Dementia - aricept on hold BPH - Resumed flomax FEN - Hold IVF dialysis pt - Replete lytes PRN, or dialyze as needed dispo; coumadin bridge Visit type - Emergency Visit Emergency Visit: Yes ED Registration Date: 04/22/18 Care time: The patient presented to the Emergency Department on the above date and was hospitalized for further evaluation of their emergent condition. - New Patient This patient is new to me today: No - Critical Care Critical Care patient: No - Discharge Referral Referred to [facility] Med [facility] No
[2018-05-03] MEDS ORDERED: HEPARIN NA (PORCINE) 5,000 UNITS/ML 1ML VIAL IVPUSH PRN (12:36)
[2018-05-03] MEDS: HEPARIN NA (PORCINE) 5,000 UNITS/ML 1ML VIAL IVPUSH PRN ×2 (12:49→22:59)
--- NOTE | 2018-05-03 16:51 | PN ---
Progress Note, Physician History of Present Illness: stable cx results noted patient doing well no complaints - Current Medication List Current Medications: Active Medications Atorvastatin Calcium (Lipitor -) 80 mg PO HS [facility] Last Admin: 05/02/18 21:01 Dose: 80 mg Calcium Acetate (Phoslo -) 1,334 mg PO TIDCM [facility] Last Admin: 05/03/18 11:31 Dose: 1,334 mg Carvedilol (Coreg -) 25 mg PO BID [facility] Last Admin: 05/03/18 11:31 Dose: 25 mg Donepezil HCl (Aricept -) 10 mg PO HS [facility] Last Admin: 05/02/18 21:00 Dose: 10 mg Heparin Sodium (Porcine) (Heparin -) 1,000 unit IVPUSH PRN PRN PRN Reason: Heparin Heparin Sodium (Porcine) (Heparin -) 5,000 unit IVPUSH PRN PRN PRN Reason: Heparin Last Admin: 05/03/18 12:49 Dose: 5,000 unit Hydralazine HCl (Apresoline -) 50 mg PO TID [facility] Last Admin: 05/03/18 15:13 Dose: 50 mg Cefepime HCl 0.5 gm/ Dextrose 100 mls @ 200 mls/hr IVPB DAILY [facility]; Protocol Vancomycin HCl (Vancomycin 1 Gm Premix -) 1 gm in 200 mls @ 133.333 mls/hr IVPB TuThSa@1000 [facility] Heparin Sodium (Porcine) 25, (000 unit/ Sodium Chloride) 500 mls @ 16 mls/hr IV TITR [facility]; Protocol Last Admin: 05/03/18 12:49 Dose: 950 unit/hr, 19 mls/hr Isosorbide Mononitrate (Imdur -) 60 mg PO DAILY [facility] Last Admin: 05/03/18 11:33 Dose: 60 mg Lidocaine (Lidoderm Patch -) 1 patch TP DAILY [facility] Last Admin: 05/03/18 11:33 Dose: 1 patch Lidocaine HCl (Xylocaine 2% Viscous Oral -) 20 ml MM Q6H PRN PRN Reason: ORAL PAIN/MOUTH SORES Metoprolol Tartrate (Lopressor Injection -) 5 mg IVPUSH Q4H PRN PRN Reason: HYPERTENSION Miscellaneous (Lidoderm Patch Removal) 1 each MC DAILY@2200 [facility] Pantoprazole Sodium (Protonix -) 20 mg PO DAILY [facility] Last Admin: 05/03/18 11:34 Dose: 20 mg Sacubitril/Valsartan (Entresto 97 Mg-103 Mg Tablet) 1 tab PO BID [facility] Last Admin: 05/03/18 11:32 Dose: 1 tab Tamsulosin HCl (Flomax -) 0.4 mg PO DAILY@0830 [facility] Last Admin: 05/03/18 08:31 Dose: 0.4 mg Warfarin Sodium (Coumadin -) 5 mg PO DAILY@1800 [facility] - Objective Vital Signs: Vital Signs Temperature 99.3 F 05/03/18 14:00 Pulse Rate 81 05/03/18 14:00 Respiratory Rate 20 05/03/18 14:00 Blood Pressure 118/62 05/03/18 14:00 O2 Sat by Pulse Oximetry (%) 99 05/03/18 09:00 Constitutional: Yes: No Distress, Calm Cardiovascular: Yes: Regular Rate and Rhythm Respiratory: Yes: Regular, CTA Bilaterally Gastrointestinal: Yes: Normal Bowel Sounds, Soft Musculoskeletal: Yes: Other Extremities: Yes: WNL Wound/Incision: Yes: Clean/Dry Neurological: Yes: Alert, Oriented Psychiatric: Yes: Alert, Oriented Labs: CBC, BMP 05/03/18 05:30 05/03/18 05:30 INR, PTT INR 1.27 (0.82-1.09) H 04/26/18 23:30 Assessment/Plan Problem List - Problems (1) Acute on chronic systolic (congestive) heart failure Code(s): I50.23 - ACUTE ON CHRONIC SYSTOLIC (CONGESTIVE) HEART FAILURE (2) CAD (coronary artery disease) Code(s): I25.10 - ATHSCL HEART DISEASE OF [place] CORONARY ARTERY W/O ANG PCTRS Qualifiers: Coronary Disease-Associated Artery/Lesion type: [place] artery [place] vs. transplanted heart: [place] heart Associated angina: without angina Qualified Code(s): I25.10 - Atherosclerotic heart disease of [place] coronary artery without angina pectoris (3) End stage renal disease Code(s): N18.6 - END STAGE RENAL DISEASE (4) Hyperlipidemia Code(s): E78.5 - HYPERLIPIDEMIA, UNSPECIFIED Qualifiers: Hyperlipidemia type: pure hypercholesterolemia Qualified Code(s): E78.00 - Pure hypercholesterolemia, unspecified; E78.0 - Pure hypercholesterolemia (5) Hypertensive cardiomyopathy Code(s): I11.9 - HYPERTENSIVE HEART DISEASE WITHOUT HEART FAILURE; I43 - CARDIOMYOPATHY IN DISEASES CLASSIFIED ELSEWHERE Qualifiers: Heart failure presence: with heart failure Qualified Code(s): I11.0 - Hypertensive heart disease with heart failure; I43 - Cardiomyopathy in diseases classified elsewhere (6) Ischemic cardiomyopathy Code(s): I25.5 - ISCHEMIC CARDIOMYOPATHY (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 male admitted with SOB/Acute respiratory failure, Pulmonary congestion, Fever, with Femoral catheter in place Sepsis PNA - Klebsiella/MRSA Streptococcal bacteremia Persistent Fever Lt knee pain/mild swelling Renal Failure - now on HD CHF/Pulm edema Hypertensive urgency CAD s/p PR s/p hypoxic resp failure plan will change abx to ceftriaxone and oral doxy cx results noted patient stable
--- NOTE | 2018-05-03 17:05 | PN ---
Teaching Attending Note Name of Resident: Geni Sorensen ATTENDING PHYSICIAN STATEMENT I saw and evaluated the patient. I reviewed the resident's note and discussed the case with the resident. I agree with the resident's findings and plan as documented. SUBJECTIVE:generalized weakness. dneies CP, SOB, fever, chills, N/V/C/D OBJECTIVE: Last Vital Signs Temp Pulse Resp BP Pulse Ox 99.3 F 81 20 118/62 99 05/03/18 14:00 05/03/18 14:00 05/03/18 14:00 05/03/18 14:00 05/03/18 09:00 General NAD CV S1 S2 irregular Lungs CTA B/L no wheezing/rales/rhonchi Abdomen soft NT/ND +LIJ permacath ASSESSMENT AND PLAN: 62yo M with PMH CKD (has refused HD in the past), and CAD presenting with progressively worsening shortness of breath and altered mental status. in the ER was found to have SBP 240. code larkin was activated in the ER 1. ACute toxic/metabolic encephalopathy-due to uremia and HTN crisis. now at baseline. 2. acute hypoxic respiratory failure- due to early ARDS with poor mental state. intubated and now extubated. saturating well on RA 3. HTN crisis-improved. cont current regimen. 4. Sepsis due to strep bacteremia- clinically improved. repeat BCx negative. on cefepime/vanco (with HD) day 6. plan to do vanco with HD once schedule is started. check vanco level tomorrow. ID on board. 5. Afib wiht RVR-episode of RVR last night, now controlled. on coreg. on heparin ggt. start coumadin today day #1. has been on coumadin in the past does not recall why he was stopped. cardio on board 6. hyperphosphatemia- due to renal failure- now resolved. on phoslo 7. acute on CKD stage V now on HD-s/P LIJ permacath for HD. plan for HD tomorrow. and place on routine schedule. will need outpatient HD arranged.Cont HD per nephro 8. L knee swelling- reports as improved. seen by ortho. likely hematoma no intervention at this time 9. dysuria- UA negative for infection 10. Elevated troponin- likely demand ischemia. can have further ischemia workup as outpatient 11. Normocytic anemia- likely diluational. no signs of bleeding. Hgb stable. iron studies pending. no indication for txn 12. dementia- on aricept 13. DVT ppx- hep ggt 14. agreeable to SNF placement once medically optimized
[2018-05-03] MEDS ORDERED: cefTRIAXone SODIUM 1 GM VIAL ONE (17:09)
[2018-05-03] MEDS ORDERED: DEXTROSE 5%-WATER - 50 ML IVPB ONE (17:09)
[2018-05-03] MEDS: CEFTRIAXONE 1 GM in DEXTROSE 5%-WATER - 50 ML IVPB SCH (17:40)
[2018-05-03] MEDS: WARFARIN NA 5 MG TABLET (UD) PO SCH (17:40)
[2018-05-03] MEDS ORDERED: PT OWN MED DRAWER 7, Y5N ONE (21:19)
[2018-05-03] MEDS: DONEPEZIL HCL 10 MG TABLET (FP) PO SCH (22:27)
[2018-05-03] MEDS: ATORVASTATIN CA 80 MG TABLET (FP) PO SCH (22:27)
[2018-05-03] MEDS: LIDOCAINE PATCH REMOVAL MC SCH (22:28)
[2018-05-03] MEDS: DOXYCYCLINE HYCLATE 100 MG CAPSULE PO SCH (22:28)
[2018-05-04] MEDS: HEPARIN - 25,000 UNIT in SODIUM CHLORIDE 495 ML IV SCH ×2 (03:47→09:00)
[2018-05-04] MEDS ORDERED: PT OWN MED DRAWER 7, Y5N ONE ×2 (03:48→05:54)
[2018-05-04] MEDS: hydrALAZINE HCL 50 MG TABLET (FP) PO SCH ×3 (06:22→22:11)
[2018-05-04 06:45] LABS: INR 1.14 (0.82-1.09); PROTHROMBIN TIME (PATIENT) 12.9 SEC (9.7-13.0)
[2018-05-04 06:52] LABS: CHLORIDE 98 mmol/L (98-107); GLUCOSE,RANDOM 91 mg/dL (74-106); POTASSIUM 3.8 mmol/L (3.5-5.1); SODIUM 137 mmol/L (136-145)
--- NOTE | 2018-05-04 06:57 | PN ---
Physical Exam: SUBJECTIVE: Patient seen and examined. Knee pain, sorethroat better, eating better. Still feels weak and unable to walk with PT. Would prefer [facility]. Started coumadin yesterday. Entresto up titrated. OBJECTIVE: Vital Signs Period Temp Pulse Resp BP Sys/[place] Pulse Ox Last 24 Hr 97.9 F-99.3 F 50-81 18-20 118-153/50-74 99-100 Vital Signs Temp 98.8 F 05/04/18 05:39 Pulse 78 05/04/18 05:39 Resp 20 05/04/18 05:39 BP 153/70 05/04/18 05:39 Pulse Ox 100 05/03/18 21:00 Intake & Output 05/03/18 05/03/18 05/04/18 11:59 23:59 11:59 Intake Total 114 1034 Balance 114 1034 Weight 58.967 kg Intake: IV 114 134 Heparin - 25,000 Unit In 114 Normal Saline - 495 ml @ 800 UNIT/HR 16 mls/hr IV TITR [facility] Rx#:[id number] Heparin - 25,000 Unit In 134 Normal Saline - 495 ml @ 800 UNIT/HR 16 mls/hr IV TITR [facility] Rx#:[id number] Oral 900 Other: Voiding Method Urinal Urinal # Unmeasured Voids Void 2 1 Bowel Movement Yes: Large Soft # Bowel Movements 1 Body Mass Index (BMI) 18.6 Weight Measurement Method Standing Scale GENERAL: The patient is awake, alert, and fully oriented, in no acute distress. LUNGS: Breath sounds equal, clear to auscultation bilaterally. L permacath (05/02) HEART: Regular rate and rhythm, S1, S2 without murmur ABDOMEN: Soft, nontender, nondistended, normoactive bowel sounds EXTREMITIES: Mildly tender L knee, warm, not swollen NEUROLOGICAL: AAO x3. Able to move all limbs. Normal speech. Laboratory Results - last 24 hr 05/02/18 05/03/18 05/03/18 05:30 05:30 20:40 PTT (Actin FS) 34.6 Sodium 138 Potassium 3.8 Chloride 99 Carbon Dioxide 30 Anion Gap 9 BUN 38 H Creatinine 6.1 H Creat Clearance w eGFR 9.36 Random Glucose 106 Calcium 8.2 L Phosphorus 4.1 Magnesium 2.0 Iron 53 TIBC 195 L Iron Saturation 27 Total Bilirubin 0.3 AST 32 D ALT 33 D Alkaline Phosphatase 104 Total Protein 5.7 L Albumin 1.9 L Active Medications Generic Name Dose Route Start Last Admin Trade Name Mile PRN Reason Stop Dose Admin Atorvastatin Calcium 80 mg 05/02/18 22:00 05/03/18 22:27 Lipitor - PO 80 mg HS [facility] Administration Calcium Acetate 1,334 mg 05/03/18 08:00 05/03/18 17:40 Phoslo - PO 1,334 mg TIDCM [facility] Administration Carvedilol 25 mg 05/02/18 22:00 05/03/18 22:27 Coreg - PO 25 mg BID [facility] Administration Donepezil HCl 10 mg 05/02/18 22:00 05/03/18 22:27 Aricept - PO 10 mg HS [facility] Administration Doxycycline Hyclate 100 mg 05/03/18 18:00 05/03/18 22:28 Vibramycin - PO 100 mg BID@1000,1800 [facility] Administration Heparin Sodium (Porcine) 1,000 unit 05/03/18 12:36 Heparin - IVPUSH PRN PRN Heparin Heparin Sodium (Porcine) 5,000 unit 05/03/18 12:36 05/03/18 22:59 Heparin - IVPUSH 5,000 unit PRN PRN Administration Heparin Hydralazine HCl 50 mg 05/02/18 22:00 05/04/18 06:22 Apresoline - PO 50 mg TID [facility] Administration Heparin Sodium (Porcine) 25, 500 mls @ 16 mls/hr 05/03/18 00:00 05/04/18 03: 47 000 unit/ Sodium Chloride IV 1,100 unit/hr TITR [facility] 22 mls/hr Administration Protocol 800 UNIT/HR Ceftriaxone Sodium 1 gm/ 50 mls @ 100 mls/hr 05/03/18 17:00 05/03/18 17:40 Dextrose IVPB 100 mls/hr DAILY [facility] Administration Protocol Isosorbide Mononitrate 60 mg 05/03/18 10:00 05/03/18 11:33 Imdur - PO 60 mg DAILY [facility] Administration Lidocaine 1 patch 05/03/18 10:00 05/03/18 11:33 Lidoderm Patch - TP 1 patch DAILY [facility] Administration Lidocaine HCl 20 ml 05/02/18 18:24 Xylocaine 2% Viscous Oral - MM Q6H PRN ORAL PAIN/MOUTH SORES Metoprolol Tartrate 5 mg 05/02/18 21:40 Lopressor Injection - IVPUSH Q4H PRN HYPERTENSION Miscellaneous 1 each 05/03/18 22:00 05/03/18 22:28 Lidoderm Patch Removal MC 1 each DAILY@2200 [facility] Administration Pantoprazole Sodium 20 mg 05/03/18 10:00 05/03/18 11:34 Protonix - PO 20 mg DAILY [facility] Administration Sacubitril/Valsartan 1 tab 05/03/18 10:00 05/03/18 22:28 Entresto 97 Mg-103 Mg Tablet PO 1 tab BID [facility] Administration Tamsulosin HCl 0.4 mg 05/03/18 08:30 05/03/18 08:31 Flomax - PO 0.4 mg DAILY@0830 [facility] Administration Warfarin Sodium 5 mg 05/03/18 18:00 05/03/18 17:40 Coumadin - PO 5 mg DAILY@1800 [facility] Administration Current Medications Atorvastatin Calcium (Lipitor -) 80 mg PO [facility] Last Admin: 05/03/18 22:27 Dose: 80 mg Calcium Acetate (Phoslo -) 1,334 mg PO TIDCM [facility] Last Admin: 05/03/18 17:40 Dose: 1,334 mg Carvedilol (Coreg -) 25 mg PO BID [facility] Last Admin: 05/03/18 22:27 Dose: 25 mg Donepezil HCl (Aricept -) 10 mg PO [facility] Last Admin: 05/03/18 22:27 Dose: 10 mg Doxycycline Hyclate (Vibramycin -) 100 mg PO BID@1000,1800 [facility] Last Admin: 05/03/18 22:28 Dose: 100 mg Heparin Sodium (Porcine) (Heparin -) 1,000 unit IVPUSH PRN PRN PRN Reason: Heparin Heparin Sodium (Porcine) (Heparin -) 5,000 unit IVPUSH PRN PRN PRN Reason: Heparin Last Admin: 05/03/18 22:59 Dose: 5,000 unit Hydralazine HCl (Apresoline -) 50 mg PO TID [facility] Last Admin: 05/04/18 06:22 Dose: 50 mg Heparin Sodium (Porcine) 25, (000 unit/ Sodium Chloride) 500 mls @ 16 mls/hr IV TITR [facility]; Protocol Last Admin: 05/04/18 03:47 Dose: 1,100 unit/hr, 22 mls/hr Ceftriaxone Sodium 1 gm/ (Dextrose) 50 mls @ 100 mls/hr IVPB DAILY [facility]; Protocol Last Admin: 05/03/18 17:40 Dose: 100 mls/hr Isosorbide Mononitrate (Imdur -) 60 mg PO DAILY [facility] Last Admin: 05/03/18 11:33 Dose: 60 mg Lidocaine (Lidoderm Patch -) 1 patch TP DAILY [facility] Last Admin: 05/03/18 11:33 Dose: 1 patch Lidocaine HCl (Xylocaine 2% Viscous Oral -) 20 ml MM Q6H PRN PRN Reason: ORAL PAIN/MOUTH SORES Metoprolol Tartrate (Lopressor Injection -) 5 mg IVPUSH Q4H PRN PRN Reason: HYPERTENSION Miscellaneous (Lidoderm Patch Removal) 1 each MC DAILY@2200 [facility] Last Admin: 05/03/18 22:28 Dose: 1 each Pantoprazole Sodium (Protonix -) 20 mg PO DAILY [facility] Last Admin: 05/03/18 11:34 Dose: 20 mg Sacubitril/Valsartan (Entresto 97 Mg-103 Mg Tablet) 1 tab PO BID [facility] Last Admin: 05/03/18 22:28 Dose: 1 tab Tamsulosin HCl (Flomax -) 0.4 mg PO DAILY@0830 [facility] Last Admin: 05/03/18 08:31 Dose: 0.4 mg Warfarin Sodium (Coumadin -) 5 mg PO DAILY@1800 [facility] Last Admin: 05/03/18 17:40 Dose: 5 mg Ambulatory Orders Amlodipine Besylate [Norvasc -] 20 mg PO DAILY 04/22/18 Aspirin Coated [Ecotrin -] 81 mg PO DAILY 04/22/18 Carvedilol [Coreg -] 12.5 mg PO BID 04/22/18 Donepezil HCl [Aricept -] 10 mg PO DAILY 04/22/18 Hydralazine HCl 50 mg PO TID 04/22/18 Tamsulosin HCl [Flomax] 0.4 mg PO DAILY 04/22/18 Atorvastatin Calcium 80 mg PO DAILY 04/23/18 Calcium Acetate [Phoslo -] 667 mg PO TIDCM 04/23/18 Isosorbide Mononitrate [Isosorbide Mononitrate ER] 60 mg PO DAILY 04/23/18 Sodium Bicarbonate - 650 mg PO TID 04/23/18 Clopidogrel Bisulfate [Plavix] 75 mg PO DAILY 05/03/18 Cyproheptadine [Periactin -] 4 mg PO DAILY 05/03/18 Furosemide [Lasix] 40 mg PO DAILY 05/03/[address]: negative for intracranial bleed -ECHO 04/23/18: moderate to severe L ventricular systolic dysfunction Courtesy of Dr Mujica-amita records from [facility]: January 17, 2015 R&LHc @ [facility]: 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, elevated right and left heart pressures January 19, 2015 Echo: Mod LVH moderate decreased LVEF 40% with AK inferior and inferoseptal, mild AR, MR, mild LAE January 22, 2015 Lexiscan Myoview: Dense scar inferior wall, large lateral ischemia, inferolateral AK, LVEF 30$ January 21, 2015 Rest and redistribution Thallium: Scar involving entire inferior wall, basal to mid inferolateral, basal inferoseptal, and apex, no significant hibernating myocardium, dilated LV with severely decreased LVEF 27% April 23, 2018 Echo: Moderately dilated with moderate decreased LV fxn, mild decreased RV fxn, mild AR, mild LAE ASSESSMENT/PLAN: 62 yo M h/o CKD stage 5 on HD, Acute on chronic diastolic/systolic failure, paroxysmal afib, CAD s/p DE admitted to ICU for acute metabolic encephalopathy secondary to hypertensive emergency and uremia, intubated, dialyzed, found to be bacteremic now on AB S/p permacath (05/02/18) and coumadin bridge (05/03/18) PEM Generalized weakness, Low albumin, inadequate intake (had to be NPO for procedures), hx of dysphagia, now improved Diet upgraded from puree per speech and swallow Videotape Sales Representative request Physical therapy Renal consult ODILIA on CKD with uremic encephalopathy -Now stage 5 CKD on HD - unknown Cr baseline, h/o dialysis, been f/u as outpatient with 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 bank booking 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 at [facility] - HD as needed - More permanent access pending-permacath, PD catheter on hold for now as pt is unsure - permacath done (05/02/18), trialysis catheter removed Sepsis Improved-no fevers On cefepime and vanco- renally dosed per Dr Lorenzo repeat blood cultures negative, Afib Previously diagnosed in [facility] EKG 04/26/18- Afib Cont Heparin gtt Cardiology consult- Dr Mujica- apprec recs Cont carvedilol resume coumadin per INR once PC has been placed (Pharmacy records did not show coumadin, but plavix 75mg daily) Cont 5mg coumadin (05/03/18)- Day 2 Knee pain Pt still c/o of pain Swelling improved No tenderness Monitor Flash pulmonary edema resolved Pt had SOB, with marked elevated BP Received high flow, CPAP Received nitroglycerin R/O renal a stenosis- duplex USS- has to be done as an outpatient Cont Entresto added- (Diovan) ARB removed Carvedilol 25mg bid Acute Metabolic Encephalopathy - 2/2 hypertensive /uremic encephalopathy - Resolved -Pt extubated (04/26/18), tolerating well, on NC -OOB in to chair -PT Sore throat Improving s/p extubation (04/26/18) Lidocaine swish and spit Speech and swallow re-eval soft regular/renal diet Uremia -Pt receiving HD -Pt got trialysis cath on monday (04/28/18) - Soda Worker on 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 recs -Phoslo 2tabs before meals - For permacath today Hypertensive encephalopathy/CAD s/p DE - Blood pressure intermittently elevated -May improve with dialysis, pt making minimum urine -Pt presented with SBP of 200 -Pt was on ASA -Continue carvedilol 25mg bid, hydralazine 50 tid, resume Imdur 60 qd (BiDil ) and Lipitor 80 qd, Diovan, changed to entresto Acute hypoxic respiratory failure, Pt extubated (04/26/18), intermittent NC use Maintained on NC-3L to maintain sats flash Pulmonary edema- resolved Elevated troponin - Likely demand ischemia, or related to poor kidney function with poor excretion - peaked-0.45>>0.39 Acute on chronic diastolic/systolic failure Ischemic failure secondary to DE Pt had pulmonary edema in setting of hypertensive emergency with background fluid overload from CKD Not currently in exacerbation Cont hydralazine 50 tid, and carvedilol entresto now -to f/u with Dr. Jeannette Kaiser at [facility] upon d/c Dementia - aricept on hold BPH - Resumed flomax FEN - Hold IVF dialysis pt - Replete lytes PRN, or dialyze as needed dispo; coumadin bridge Visit type - Emergency Visit Emergency Visit: Yes ED Registration Date: 04/22/18 Care time: The patient presented to the Emergency Department on the above date and was hospitalized for further evaluation of their emergent condition. - New Patient This patient is new to me today: No - Critical Care Critical Care patient: No - Discharge Referral Referred to [facility] Med P.C.: No
[2018-05-04 07:00] LABS: ALBUMIN 1.8 g/dl (3.4-5.0); ALK PHOS 104 U/L (45-117); ANION GAP 11 (8-16); BILIRUBIN,TOTAL 0.3 mg/dL (0.2-1.0); BLOOD UREA NITROGEN 52 mg/dL (7-18); CALCIUM 8.2 mg/dL (8.5-10.1); CO2 28 mmol/L (21-32); MAGNESIUM 1.9 mg/dL (1.8-2.4); PHOSPHOROUS 4.2 mg/dL (2.5-4.9); SGOT/AST 22 U/L (15-37); SGPT/ALT 28 U/L (12-78); TOT PROT 5.4 g/dl (6.4-8.2)
[2018-05-04 07:07] LABS: CREATININE 7.8 mg/dL (0.7-1.3)
[2018-05-04 07:12] LABS: EOS % 3.8 % (0-4.5); HEMATOCRIT 26.9 % (35.4-49); HEMOGLOBIN 8.7 GM/dL (11.7-16.9); LYMPH % 11.8 % (8-40); MCH 27.8 pg (25.7-33.7); MCHC 32.2 g/dl (32.0-35.9); MEAN CELL VOLUME 86.5 fl (80-96); MONO % 6.5 % (3.8-10.2); NEUT % 76.9 % (42.8-82.8); PLATELET COUNT 325 K/MM3 (134-434); RBC 3.11 M/mm3 (4.00-5.60); RDW 17.4 % (11.9-15.9); WHITE BLOOD COUNT 11.9 K/mm3 (4.0-10.0)
[2018-05-04] MEDS ORDERED: EPOETIN ALFA 3,000 UNIT, EPOETIN ALFA 2,000 UNIT IVPUSH ONE (09:00)
[2018-05-04] MEDS: ISOSORBIDE MONONITRATE 60 MG TAB.SR.24H (FP) PO SCH (10:04)
[2018-05-04] MEDS: SACUBITRIL/VALSARTAN 97 MG-103 MG TABLET PO SCH (10:04)
[2018-05-04] MEDS: CARVEDILOL 25 MG TABLET (FP) PO SCH ×2 (10:05→22:11)
[2018-05-04] MEDS: TAMSULOSIN HCL 0.4 MG CAP.ER.24H (FP) PO SCH (10:16)
[2018-05-04] MEDS: CALCIUM ACETATE 667 MG CAPSULE (FP) PO SCH ×3 (10:16→17:07)
[2018-05-04] MEDS: PANTOPRAZOLE 20 MG TABLET (FP) PO SCH (10:16)
[2018-05-04] MEDS: DOXYCYCLINE HYCLATE 100 MG CAPSULE PO SCH ×2 (10:17→17:07)
[2018-05-04] MEDS: LIDOCAINE 5% TOPICAL PATCH TP SCH (10:17)
[2018-05-04] MEDS ORDERED: EPOETIN ALFA 20,000 UNIT/1 ML VIAL SQ ONE (10:34)
[2018-05-04] MEDS ORDERED: IRON SUCROSE INJECTION 100 MG in SODIUM CHLORIDE 100 ML IVPB ONE (10:34)
--- NOTE | 2018-05-04 10:37 | PN ---
Progress Note (short form) - Note Progress Note: 62 WITH HTN ESRD LAST HD MONDAY CULTURE NEG NOW O/E left IJ permcath CHEST CLEAR ABD SOFE [id number] EXT NO EDEMA ODONNELL OUT POS BLOOD CULTURE WITH STREP SPUTIM FOR STAPH AND KLEBSIELLA ON VANCO AND CEFEPIME HD TODAY 3 HR K2 [employer] 2 KG EPO 20K VENOFER 100 NEEDS PT CASE D/W DISCHARGE PLANNING ON COUMADIN NOW
--- NOTE | 2018-05-04 10:50 | PN ---
Progress Note, Physician History of Present Illness: Dyspnea improving with HD/UF. remains SR with PVC. - Current Medication List Current Medications: Active Medications Atorvastatin Calcium (Lipitor -) 80 mg PO HS [facility] Last Admin: 05/03/18 22:27 Dose: 80 mg Calcium Acetate (Phoslo -) 1,334 mg PO TIDCM [facility] Last Admin: 05/04/18 10:16 Dose: 1,334 mg Carvedilol (Coreg -) 25 mg PO BID [facility] Last Admin: 05/03/18 22:27 Dose: 25 mg Donepezil HCl (Aricept -) 10 mg PO HS [facility] Last Admin: 05/03/18 22:27 Dose: 10 mg Doxycycline Hyclate (Vibramycin -) 100 mg PO BID@1000,1800 [facility] Last Admin: 05/04/18 10:17 Dose: 100 mg Epoetin [place] (Epogen -) 20,000 unit SQ ONCE ONE Stop: 05/04/18 10:35 Heparin Sodium (Porcine) (Heparin -) 1,000 unit IVPUSH PRN PRN PRN Reason: Heparin Heparin Sodium (Porcine) (Heparin -) 5,000 unit IVPUSH PRN PRN PRN Reason: Heparin Last Admin: 05/03/18 22:59 Dose: 5,000 unit Hydralazine HCl (Apresoline -) 50 mg PO TID [facility] Last Admin: 05/04/18 06:22 Dose: 50 mg Heparin Sodium (Porcine) 25, (000 unit/ Sodium Chloride) 500 mls @ 16 mls/hr IV TITR [facility]; Protocol Last Admin: 05/04/18 03:47 Dose: 1,100 unit/hr, 22 mls/hr Ceftriaxone Sodium 1 gm/ (Dextrose) 50 mls @ 100 mls/hr IVPB DAILY [facility]; Protocol Last Admin: 05/03/18 17:40 Dose: 100 mls/hr Iron Sucrose 100 mg/ Sodium (Chloride) 100 mls @ 200 mls/hr IVPB ONCE ONE Stop: 05/04/18 11:03 Isosorbide Mononitrate (Imdur -) 60 mg PO DAILY [facility] Last Admin: 05/03/18 11:33 Dose: 60 mg Lidocaine (Lidoderm Patch -) 1 patch TP DAILY [facility] Last Admin: 05/04/18 10:17 Dose: 1 patch Lidocaine HCl (Xylocaine 2% Viscous Oral -) 20 ml MM Q6H PRN PRN Reason: ORAL PAIN/MOUTH SORES Metoprolol Tartrate (Lopressor Injection -) 5 mg IVPUSH Q4H PRN PRN Reason: HYPERTENSION Miscellaneous (Lidoderm Patch Removal) 1 each MC DAILY@2200 [facility] Last Admin: 05/03/18 22:28 Dose: 1 each Pantoprazole Sodium (Protonix -) 20 mg PO DAILY [facility] Last Admin: 05/04/18 10:16 Dose: 20 mg Sacubitril/Valsartan (Entresto 97 Mg-103 Mg Tablet) 1 tab PO BID [facility] Last Admin: 05/03/18 22:28 Dose: 1 tab Tamsulosin HCl (Flomax -) 0.4 mg PO DAILY@0830 [facility] Last Admin: 05/04/18 10:16 Dose: 0.4 mg Warfarin Sodium (Coumadin -) 5 mg PO DAILY@1800 [facility] Last Admin: 05/03/18 17:40 Dose: 5 mg - Objective Vital Signs: Vital Signs Temperature 98.8 F 05/04/18 06:45 Pulse Rate 71 05/04/18 09:55 Respiratory Rate 18 05/04/18 09:55 Blood Pressure 147/76 05/04/18 09:55 O2 Sat by Pulse Oximetry (%) 100 05/03/18 21:00 Constitutional: Yes: No Distress, Calm, Thin Neck: Yes: Supple Cardiovascular: Yes: Regular Rate and Rhythm Respiratory: Yes: Regular, Diminished, On Nasal O2 Gastrointestinal: Yes: Normal Bowel Sounds, Soft Edema: No Labs: CBC, BMP 05/04/18 05:30 05/04/18 05:30 INR, PTT INR 1.14 (0.82-1.09) 05/04/18 05:30 - ....Imaging EKG: Report Reviewed (Tele: NSR occ [facility]) Problem List - Problems (1) Acute on chronic systolic (congestive) heart failure Code(s): I50.23 - ACUTE ON CHRONIC SYSTOLIC (CONGESTIVE) HEART FAILURE (2) Hypertensive cardiomyopathy Code(s): I11.9 - HYPERTENSIVE HEART DISEASE WITHOUT HEART FAILURE; I43 - CARDIOMYOPATHY IN DISEASES CLASSIFIED ELSEWHERE Qualifiers: Heart failure presence: with heart failure Qualified Code(s): I11.0 - Hypertensive heart disease with heart failure; I43 - Cardiomyopathy in diseases classified elsewhere (3) Hyperlipidemia Code(s): E78.5 - HYPERLIPIDEMIA, UNSPECIFIED Qualifiers: Hyperlipidemia type: pure hypercholesterolemia Qualified Code(s): E78.00 - Pure hypercholesterolemia, unspecified; E78.0 - Pure hypercholesterolemia (4) Ischemic cardiomyopathy Code(s): I25.5 - ISCHEMIC CARDIOMYOPATHY (5) End stage renal disease Code(s): N18.6 - END STAGE RENAL DISEASE (6) Old inferolateral myocardial infarction Code(s): I25.2 - OLD MYOCARDIAL INFARCTION (7) Anemia Code(s): D64.9 - ANEMIA, UNSPECIFIED Qualifiers: Anemia type: due to chronic kidney disease Assessment/Plan January 17, 2015 [address] @ [facility]: 3 vessel CAD with [employer] RVA and OM2, elevated right and left heart pressures January 19, 2015 Echo: Mod LVH moderate decreased LVEF 40% with AK inferior and inferoseptal, mild AR, MR, mild LAE January 22, 2015 Lexiscan Myoview: Dense scar inferior wall, large lateral ischemia, inferolateral AK, LVEF 30$ January 21, 2015 Rest and redistribution Thallium: Scar involving entire inferior wall, basal to mid inferolateral, basal inferoseptal, and apex, no significant hibernating myocardiaum, dilated LV with severely decreased LVEF 27% April 23, 2018 Echo: Moderately dilated with moderate decreased LV fxn, mild decreased RV fxn, mild AR, mild LAE 1. Acute on chronic diastolic/systolic failure and pulmonary edema referable to 2. Hypertensive urgency in context of dietary/medical indiscretion (previously declined HD), r/o renal artery stenosis 3. Post acute hypoxic respiratory failure 4. CAD s/p [place], demand ischemic injury 5. Ischemic cardiomyopathy (moderate) 6. Acute on Chronic Renal Failure requiring HD 7. Paroxysmal atrial fibrillation 8. Resolved Altered Mental Status r/o Hypertensive vs Uremic Encephalopathy 9. Anemia of CKD 10. PNA - Klebsiella/MRSA, Streptococcal bacteremia P:1. Volume removal via UF/HD via left PC 2. Continue carvedilol 25 bid, hydralazine 50 tid, Imdur 60 qd (BiDil), Lipitor 80 qd, and Entresto 97/103 bid 3. Continue heparin gtt -> coumadin per INR with GI protection 4. Renal arterial Doppler to R/O renal artery stenosis 5. O2 to maintain saturation, complete abx course per ID 6. Pt to f/u with Dr. Jeannette Kaiser at [facility] upon d/c
--- NOTE | 2018-05-04 11:39 | PN ---
Progress Note, Physician History of Present Illness: PULMONARY ALERT,NAD,-SOB - Current Medication List Current Medications: Active Medications Atorvastatin Calcium (Lipitor -) 80 mg PO HS [facility] Last Admin: 05/03/18 22:27 Dose: 80 mg Calcium Acetate (Phoslo -) 1,334 mg PO TIDCM [facility] Last Admin: 05/04/18 10:16 Dose: 1,334 mg Carvedilol (Coreg -) 25 mg PO BID [facility] Last Admin: 05/03/18 22:27 Dose: 25 mg Donepezil HCl (Aricept -) 10 mg PO HS [facility] Last Admin: 05/03/18 22:27 Dose: 10 mg Doxycycline Hyclate (Vibramycin -) 100 mg PO BID@1000,1800 [facility] Last Admin: 05/04/18 10:17 Dose: 100 mg Heparin Sodium (Porcine) (Heparin -) 1,000 unit IVPUSH PRN PRN PRN Reason: Heparin Heparin Sodium (Porcine) (Heparin -) 5,000 unit IVPUSH PRN PRN PRN Reason: Heparin Last Admin: 05/03/18 22:59 Dose: 5,000 unit Hydralazine HCl (Apresoline -) 50 mg PO TID [facility] Last Admin: 05/04/18 06:22 Dose: 50 mg Heparin Sodium (Porcine) 25, (000 unit/ Sodium Chloride) 500 mls @ 16 mls/hr IV TITR [facility]; Protocol Last Admin: 05/04/18 03:47 Dose: 1,100 unit/hr, 22 mls/hr Ceftriaxone Sodium 1 gm/ (Dextrose) 50 mls @ 100 mls/hr IVPB DAILY [facility]; Protocol Last Admin: 05/03/18 17:40 Dose: 100 mls/hr Iron Sucrose 100 mg/ Sodium (Chloride) 105 mls @ 210 mls/hr IVPB ONCE ONE Stop: 05/04/18 12:29 Isosorbide Mononitrate (Imdur -) 60 mg PO DAILY [facility] Last Admin: 05/03/18 11:33 Dose: 60 mg Lidocaine (Lidoderm Patch -) 1 patch TP DAILY [facility] Last Admin: 05/04/18 10:17 Dose: 1 patch Lidocaine HCl (Xylocaine 2% Viscous Oral -) 20 ml MM Q6H PRN PRN Reason: ORAL PAIN/MOUTH SORES Metoprolol Tartrate (Lopressor Injection -) 5 mg IVPUSH Q4H PRN PRN Reason: HYPERTENSION Miscellaneous (Lidoderm Patch Removal) 1 each MC DAILY@2200 [facility] Last Admin: 05/03/18 22:28 Dose: 1 each Pantoprazole Sodium (Protonix -) 20 mg PO DAILY [facility] Last Admin: 05/04/18 10:16 Dose: 20 mg Sacubitril/Valsartan (Entresto 97 Mg-103 Mg Tablet) 1 tab PO BID [facility] Last Admin: 05/03/18 22:28 Dose: 1 tab Tamsulosin HCl (Flomax -) 0.4 mg PO DAILY@0830 [facility] Last Admin: 05/04/18 10:16 Dose: 0.4 mg Warfarin Sodium (Coumadin -) 5 mg PO DAILY@1800 [facility] Last Admin: 05/03/18 17:40 Dose: 5 mg - Objective Vital Signs: Vital Signs Temperature 98.7 F 05/04/18 08:00 Pulse Rate 71 05/04/18 09:55 Respiratory Rate 18 05/04/18 09:55 Blood Pressure 147/76 05/04/18 09:55 O2 Sat by Pulse Oximetry (%) 100 05/04/18 09:00 Constitutional: Yes: Calm, Thin Eyes: Yes: WNL HENT: Yes: WNL Neck: Yes: WNL Cardiovascular: Yes: Pulse Irregular, S1, S2 Respiratory: Yes: CTA Bilaterally Gastrointestinal: Yes: Normal Bowel Sounds, Soft Extremities: Yes: WNL Edema: No Labs: CBC, BMP 05/04/18 05:30 05/04/18 05:30 INR, PTT INR 1.14 (0.82-1.09) 05/04/18 05:30 Problem List - Problems (1) Acute on chronic systolic (congestive) heart failure Code(s): I50.23 - ACUTE ON CHRONIC SYSTOLIC (CONGESTIVE) HEART FAILURE (2) CAD (coronary artery disease) Code(s): I25.10 - ATHSCL HEART DISEASE OF [place] CORONARY ARTERY W/O ANG PCTRS Qualifiers: Coronary Disease-Associated Artery/Lesion type: [place] artery [place] vs. transplanted heart: [place] heart Associated angina: without angina Qualified Code(s): I25.10 - Atherosclerotic heart disease of [place] coronary artery without angina pectoris (3) End stage renal disease Code(s): N18.6 - END STAGE RENAL DISEASE (4) Hyperlipidemia Code(s): E78.5 - HYPERLIPIDEMIA, UNSPECIFIED Qualifiers: Hyperlipidemia type: pure hypercholesterolemia Qualified Code(s): E78.00 - Pure hypercholesterolemia, unspecified; E78.0 - Pure hypercholesterolemia (5) Hypertensive cardiomyopathy Code(s): I11.9 - HYPERTENSIVE HEART DISEASE WITHOUT HEART FAILURE; I43 - CARDIOMYOPATHY IN DISEASES CLASSIFIED ELSEWHERE Qualifiers: Heart failure presence: with heart failure Qualified Code(s): I11.0 - Hypertensive heart disease with heart failure; I43 - Cardiomyopathy in diseases classified elsewhere (6) Left anterior knee pain Code(s): M25.562 - PAIN IN LEFT KNEE (7) Renal failure Code(s): N19 - UNSPECIFIED KIDNEY FAILURE Qualifiers: Renal failure chronicity: acute on chronic (8) Respiratory failure Code(s): J96.90 - RESPIRATORY FAILURE, UNSP, UNSP W HYPOXIA OR HYPERCAPNIA Qualifiers: Chronicity: acute Respiratory failure complication: unspecified whether with hypoxia or hypercapnia Qualified Code(s): J96.00 - Acute respiratory failure, unspecified whether with hypoxia or hypercapnia (9) Toxic metabolic encephalopathy Code(s): G92 - TOXIC ENCEPHALOPATHY Assessment/Plan ASSESSMENT AND PLAN: Altered Mental Status resolved s/p Acute Respiratory Failure Hypertensive Urgency resolved Hypertensive vs Uremic Encephalopathy improved Acute on Chronic Renal Failure requiring HD +Troponins likely demand ischemia Paroxysmal Atrial Fibrillation now in sinus Strep Bacteremia - abx as per ID - HD per renal - monitor urine output, creatinine - FiO2 to keep SpO2 >90% - BP control - DVT/GI prophylaxis DR ARELLANO
[2018-05-04] MEDS: CEFTRIAXONE 1 GM in DEXTROSE 5%-WATER - 50 ML IVPB SCH (12:07)
--- NOTE | 2018-05-04 13:06 | PN ---
Teaching Attending Note Name of Resident: Geni Sorensen ATTENDING PHYSICIAN STATEMENT I saw and evaluated the patient. I reviewed the resident's note and discussed the case with the resident. I agree with the resident's findings and plan as documented. SUBJECTIVE:generalized weakness. states sore throat has resolved. denies Cp, SOB , fever ,chills, N/V/C/D OBJECTIVE: Last Vital Signs Temp Pulse Resp BP Pulse Ox 98.7 F 71 18 147/76 100 05/04/18 08:00 05/04/18 09:55 05/04/18 09:55 05/04/18 09:55 05/04/18 09:00 General NAD CV S1 S2 irregular Lungs CTA B/L no wheezing/rales/rhonchi Abdomen soft NT/ND +[facility]J permacath ASSESSMENT AND PLAN: 62yo M with PMH CKD (has refused HD in the past), and CAD presenting with progressively worsening shortness of breath and altered mental status. in the ER was found to have SBP 240. code chaya was activated in the ER 1. ACute toxic/metabolic encephalopathy-due to uremia and HTN crisis. now at baseline. 2. acute hypoxic respiratory failure- due to early ARDS with poor mental state. intubated and now extubated. saturating well on RA 3. HTN crisis-improved. cont current regimen. 4. Sepsis due to strep bacteremia- clinically improved. repeat BCx negative. abx switched to ceftriaxone and doxy po. day 7 of total abx. will d/w ID about duration. ID on board. 5. Afib wiht RVR-rate improved. on increased dose of coreg. on heparin - coumadin bridge day #2. cardio on board 6. hyperphosphatemia- due to renal failure- now resolved. on phoslo 7. acute on CKD stage V now on HD-s/P [facility]J permacath for HD. HD per normal schedule. will need outpatient HD arranged.Cont HD per nephro 8. L knee swelling- reports as improved. seen by ortho. likely hematoma no intervention at this time 9. dysuria- UA negative for infection 10. Elevated troponin- likely demand ischemia. can have further ischemia workup as outpatient 11. combination of iron def anemia and of chronic disease- slight downtrend. will monitor. started on venofer and HUSEYIN to receive weekly with HD.no indication for txn 12. dementia- on aricept 13. DVT ppx- hep ggt 14. agreeable to SNF placement once medically optimized
[2018-05-04] MEDS: IRON SUCROSE INJECTION 100 MG in SODIUM CHLORIDE 100 ML IVPB ONE ×2 (13:09→13:13)
--- NOTE | 2018-05-04 15:06 | PN ---
Progress Note, Physician History of Present Illness: stable doing well no complaints feels well - Current Medication List Current Medications: Active Medications Atorvastatin Calcium (Lipitor -) 80 mg PO HS [facility] Last Admin: 05/03/18 22:27 Dose: 80 mg Calcium Acetate (Phoslo -) 1,334 mg PO TIDCM [facility] Last Admin: 05/04/18 12:13 Dose: 1,334 mg Carvedilol (Coreg -) 25 mg PO BID [facility] Last Admin: 05/03/18 22:27 Dose: 25 mg Donepezil HCl (Aricept -) 10 mg PO HS [facility] Last Admin: 05/03/18 22:27 Dose: 10 mg Doxycycline Hyclate (Vibramycin -) 100 mg PO BID@1000,1800 [facility] Last Admin: 05/04/18 10:17 Dose: 100 mg Heparin Sodium (Porcine) (Heparin -) 1,000 unit IVPUSH PRN PRN PRN Reason: Heparin Heparin Sodium (Porcine) (Heparin -) 5,000 unit IVPUSH PRN PRN PRN Reason: Heparin Last Admin: 05/03/18 22:59 Dose: 5,000 unit Hydralazine HCl (Apresoline -) 50 mg PO TID [facility] Last Admin: 05/04/18 06:22 Dose: 50 mg Heparin Sodium (Porcine) 25, (000 unit/ Sodium Chloride) 500 mls @ 16 mls/hr IV TITR [facility]; Protocol Last Admin: 05/04/18 09:00 Dose: 1,200 unit/hr, 24 mls/hr Ceftriaxone Sodium 1 gm/ (Dextrose) 50 mls @ 100 mls/hr IVPB DAILY [facility]; Protocol Last Admin: 05/04/18 12:07 Dose: 100 mls/hr Isosorbide Mononitrate (Imdur -) 60 mg PO DAILY [facility] Last Admin: 05/03/18 11:33 Dose: 60 mg Lidocaine (Lidoderm Patch -) 1 patch TP DAILY [facility] Last Admin: 05/04/18 10:17 Dose: 1 patch Lidocaine HCl (Xylocaine 2% Viscous Oral -) 20 ml MM Q6H PRN PRN Reason: ORAL PAIN/MOUTH SORES Metoprolol Tartrate (Lopressor Injection -) 5 mg IVPUSH Q4H PRN PRN Reason: HYPERTENSION Miscellaneous (Lidoderm Patch Removal) 1 each MC DAILY@2200 [facility] Last Admin: 05/03/18 22:28 Dose: 1 each Pantoprazole Sodium (Protonix -) 20 mg PO DAILY [facility] Last Admin: 05/04/18 10:16 Dose: 20 mg Sacubitril/Valsartan (Entresto 97 Mg-103 Mg Tablet) 1 tab PO BID [facility] Last Admin: 05/03/18 22:28 Dose: 1 tab Tamsulosin HCl (Flomax -) 0.4 mg PO DAILY@0830 [facility] Last Admin: 05/04/18 10:16 Dose: 0.4 mg Warfarin Sodium (Coumadin -) 5 mg PO DAILY@1800 [facility] Last Admin: 05/03/18 17:40 Dose: 5 mg - Objective Vital Signs: Vital Signs Temperature 98.7 F 05/04/18 08:00 Pulse Rate 71 05/04/18 09:55 Respiratory Rate 18 05/04/18 09:55 Blood Pressure 147/76 05/04/18 09:55 O2 Sat by Pulse Oximetry (%) 100 05/04/18 09:00 Constitutional: Yes: No Distress, Calm Cardiovascular: Yes: Regular Rate and Rhythm Respiratory: Yes: Regular, Poor Air Entry Gastrointestinal: Yes: Normal Bowel Sounds, Soft Musculoskeletal: Yes: WNL Extremities: Yes: WNL Neurological: Yes: Alert, Oriented Psychiatric: Yes: Alert, Oriented Labs: CBC, BMP 05/04/18 05:30 05/04/18 05:30 INR, PTT INR 1.14 (0.82-1.09) 05/04/18 05:30 Assessment/Plan Problem List - Problems (1) Acute on chronic systolic (congestive) heart failure Code(s): I50.23 - ACUTE ON CHRONIC SYSTOLIC (CONGESTIVE) HEART FAILURE (2) CAD (coronary artery disease) Code(s): I25.10 - ATHSCL HEART DISEASE OF [place] CORONARY ARTERY W/O ANG PCTRS Qualifiers: Coronary Disease-Associated Artery/Lesion type: [place] artery [place] vs. transplanted heart: [place] heart Associated angina: without angina Qualified Code(s): I25.10 - Atherosclerotic heart disease of [place] coronary artery without angina pectoris (3) End stage renal disease Code(s): N18.6 - END STAGE RENAL DISEASE (4) Hyperlipidemia Code(s): E78.5 - HYPERLIPIDEMIA, UNSPECIFIED Qualifiers: Hyperlipidemia type: pure hypercholesterolemia Qualified Code(s): E78.00 - Pure hypercholesterolemia, unspecified; E78.0 - Pure hypercholesterolemia (5) Hypertensive cardiomyopathy Code(s): I11.9 - HYPERTENSIVE HEART DISEASE WITHOUT HEART FAILURE; I43 - CARDIOMYOPATHY IN DISEASES CLASSIFIED ELSEWHERE Qualifiers: Heart failure presence: with heart failure Qualified Code(s): I11.0 - Hypertensive heart disease with heart failure; I43 - Cardiomyopathy in diseases classified elsewhere (6) Ischemic cardiomyopathy Code(s): I25.5 - ISCHEMIC CARDIOMYOPATHY (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 male admitted with SOB/Acute respiratory failure, Pulmonary congestion, Fever, with Femoral catheter in place Sepsis PNA - Klebsiella/MRSA Streptococcal bacteremia Persistent Fever Lt knee pain/mild swelling Renal Failure - now on HD CHF/Pulm edema Hypertensive urgency CAD s/p HI s/p hypoxic resp failure plan continue current abx patient improving incentive caleb rest as per the team
[2018-05-04] MEDS: WARFARIN NA 5 MG TABLET (UD) PO SCH (17:07)
[2018-05-04] MEDS: HEPARIN NA (PORCINE) 5,000 UNITS/ML 1ML VIAL IVPUSH PRN (21:00)
[2018-05-04] MEDS: ATORVASTATIN CA 80 MG TABLET (FP) PO SCH (22:11)
[2018-05-04] MEDS: DONEPEZIL HCL 10 MG TABLET (FP) PO SCH (22:12)
[2018-05-04] MEDS: LIDOCAINE PATCH REMOVAL MC SCH (22:13)
[2018-05-05] MEDS: SACUBITRIL/VALSARTAN 97 MG-103 MG TABLET PO SCH ×3 (01:00→22:13)
[2018-05-05] MEDS: HEPARIN - 25,000 UNIT in SODIUM CHLORIDE 495 ML IV SCH (05:51)
[2018-05-05] MEDS: hydrALAZINE HCL 50 MG TABLET (FP) PO SCH ×3 (05:53→22:12)
[2018-05-05] MEDS: HEPARIN SOD,PORK IN 0.45% NACL 25,000 UNITS/500 ML INFUS.BAG IVPB SCH ×2 (06:20→10:18)
[2018-05-05 06:32] LABS: BASO % 0.9 % (0-2.0); HEMATOCRIT 29.2 % (35.4-49); HEMOGLOBIN 9.3 GM/dL (11.7-16.9); LYMPH % 13.9 % (8-40); MCH 27.9 pg (25.7-33.7); MCHC 31.9 g/dl (32.0-35.9); MEAN CELL VOLUME 87.5 fl (80-96); MEAN PLT VOLUME 8.4 fl (7.5-11.1); MONO % 7.7 % (3.8-10.2); NEUT % 73.5 % (42.8-82.8); PLATELET COUNT 332 K/MM3 (134-434); RBC 3.34 M/mm3 (4.00-5.60); RDW 18.1 % (11.9-15.9); WHITE BLOOD COUNT 12.1 K/mm3 (4.0-10.0)
[2018-05-05 06:58] LABS: ALBUMIN 1.9 g/dl (3.4-5.0); ALK PHOS 113 U/L (45-117); ANION GAP 7 (8-16); BILIRUBIN,TOTAL 0.3 mg/dL (0.2-1.0); BLOOD UREA NITROGEN 41 mg/dL (7-18); CALCIUM 8.3 mg/dL (8.5-10.1); CHLORIDE 101 mmol/L (98-107); CO2 31 mmol/L (21-32); GLUCOSE,RANDOM 103 mg/dL (74-106); PHOSPHOROUS 3.1 mg/dL (2.5-4.9); POTASSIUM 3.8 mmol/L (3.5-5.1); SGOT/AST 20 U/L (15-37); SGPT/ALT 27 U/L (12-78); SODIUM 139 mmol/L (136-145); TOT PROT 5.7 g/dl (6.4-8.2)
[2018-05-05 07:40] LABS: INR 1.2 (0.82-1.09); PROTHROMBIN TIME (PATIENT) 13.6 SEC (9.7-13.0)
[2018-05-05] MEDS ORDERED: PT OWN MED DRAWER 7, Y5N ONE (10:01)
[2018-05-05] MEDS ORDERED: DEXTROSE 5%-WATER - 50 ML IVPB ONE (10:06)
[2018-05-05] MEDS ORDERED: cefTRIAXone SODIUM 1 GM VIAL ONE (10:06)
[2018-05-05] MEDS: TAMSULOSIN HCL 0.4 MG CAP.ER.24H (FP) PO SCH (10:17)
[2018-05-05] MEDS: DOXYCYCLINE HYCLATE 100 MG CAPSULE PO SCH ×2 (10:17→17:35)
[2018-05-05] MEDS: CEFTRIAXONE 1 GM in DEXTROSE 5%-WATER - 50 ML IVPB SCH (10:17)
[2018-05-05] MEDS: CALCIUM ACETATE 667 MG CAPSULE (FP) PO SCH ×3 (10:17→17:35)
[2018-05-05] MEDS: ISOSORBIDE MONONITRATE 60 MG TAB.SR.24H (FP) PO SCH (10:18)
[2018-05-05] MEDS: LIDOCAINE 5% TOPICAL PATCH TP SCH (10:18)
[2018-05-05] MEDS: PANTOPRAZOLE 20 MG TABLET (FP) PO SCH (10:18)
[2018-05-05] MEDS: CARVEDILOL 25 MG TABLET (FP) PO SCH ×2 (10:18→22:12)
--- NOTE | 2018-05-05 11:14 | PN ---
Progress Note, Physician History of Present Illness: patient stable doing well no new issues - Current Medication List Current Medications: Active Medications Atorvastatin Calcium (Lipitor -) 80 mg PO HS [facility] Last Admin: 05/04/18 22:11 Dose: 80 mg Calcium Acetate (Phoslo -) 1,334 mg PO TIDCM [facility] Last Admin: 05/05/18 10:17 Dose: 1,334 mg Carvedilol (Coreg -) 25 mg PO BID [facility] Last Admin: 05/05/18 10:18 Dose: 25 mg Donepezil HCl (Aricept -) 10 mg PO HS [facility] Last Admin: 05/04/18 22:12 Dose: 10 mg Doxycycline Hyclate (Vibramycin -) 100 mg PO BID@1000,1800 [facility] Last Admin: 05/05/18 10:17 Dose: 100 mg Heparin Sodium (Porcine) (Heparin -) 1,000 unit IVPUSH PRN PRN PRN Reason: Heparin Heparin Sodium (Porcine) (Heparin -) 5,000 unit IVPUSH PRN PRN PRN Reason: Heparin Last Admin: 05/04/18 21:00 Dose: 5,000 unit Hydralazine HCl (Apresoline -) 50 mg PO TID [facility] Last Admin: 05/05/18 05:53 Dose: 50 mg Ceftriaxone Sodium 1 gm/ (Dextrose) 50 mls @ 100 mls/hr IVPB DAILY [facility]; Protocol Last Admin: 05/05/18 10:17 Dose: 100 mls/hr HEPARIN SOD,PORK IN 0.45% NACL (Heparin-1/2ns 25,000 Units/500) 25,000 units in 500 mls @ 16 mls/hr IVPB TITR [facility]; Protocol Last Admin: 05/05/18 10:18 Dose: 1,350 unit/hr, 27 mls/hr Isosorbide Mononitrate (Imdur -) 60 mg PO DAILY [facility] Last Admin: 05/05/18 10:18 Dose: 60 mg Lidocaine (Lidoderm Patch -) 1 patch TP DAILY [facility] Last Admin: 05/05/18 10:18 Dose: 1 patch Lidocaine HCl (Xylocaine 2% Viscous Oral -) 20 ml MM Q6H PRN PRN Reason: ORAL PAIN/MOUTH SORES Metoprolol Tartrate (Lopressor Injection -) 5 mg IVPUSH Q4H PRN PRN Reason: HYPERTENSION Miscellaneous (Lidoderm Patch Removal) 1 each MC DAILY@2200 [facility] Last Admin: 05/04/18 22:13 Dose: Not Given Pantoprazole Sodium (Protonix -) 20 mg PO DAILY [facility] Last Admin: 05/05/18 10:18 Dose: 20 mg Sacubitril/Valsartan (Entresto 97 Mg-103 Mg Tablet) 1 tab PO BID [facility] Last Admin: 05/05/18 10:17 Dose: 1 tab Tamsulosin HCl (Flomax -) 0.4 mg PO DAILY@0830 [facility] Last Admin: 05/05/18 10:17 Dose: 0.4 mg Warfarin Sodium (Coumadin -) 5 mg PO DAILY@1800 [facility] Last Admin: 05/04/18 17:07 Dose: 5 mg - Objective Vital Signs: Vital Signs Temperature 99 F 05/05/18 10:00 Pulse Rate 74 05/05/18 10:00 Respiratory Rate 16 05/05/18 10:00 Blood Pressure 130/52 05/05/18 10:00 O2 Sat by Pulse Oximetry (%) 100 05/04/18 22:00 Constitutional: Yes: No Distress, Calm Cardiovascular: Yes: Regular Rate and Rhythm Respiratory: Yes: Regular, CTA Bilaterally Gastrointestinal: Yes: Normal Bowel Sounds, Soft Musculoskeletal: Yes: WNL Extremities: Yes: WNL Neurological: Yes: Alert, Oriented Labs: CBC, BMP 05/05/18 06:00 05/05/18 06:00 INR, PTT INR 1.20 (0.82-1.09) H 05/05/18 06:00 Assessment/Plan Problem List - Problems (1) Acute on chronic systolic (congestive) heart failure Code(s): I50.23 - ACUTE ON CHRONIC SYSTOLIC (CONGESTIVE) HEART FAILURE (2) CAD (coronary artery disease) Code(s): I25.10 - ATHSCL HEART DISEASE OF [place] CORONARY ARTERY W/O ANG PCTRS Qualifiers: Coronary Disease-Associated Artery/Lesion type: [place] artery [place] vs. transplanted heart: [place] heart Associated angina: without angina Qualified Code(s): I25.10 - Atherosclerotic heart disease of [place] coronary artery without angina pectoris (3) End stage renal disease Code(s): N18.6 - END STAGE RENAL DISEASE (4) Hyperlipidemia Code(s): E78.5 - HYPERLIPIDEMIA, UNSPECIFIED Qualifiers: Hyperlipidemia type: pure hypercholesterolemia Qualified Code(s): E78.00 - Pure hypercholesterolemia, unspecified; E78.0 - Pure hypercholesterolemia (5) Hypertensive cardiomyopathy Code(s): I11.9 - HYPERTENSIVE HEART DISEASE WITHOUT HEART FAILURE; I43 - CARDIOMYOPATHY IN DISEASES CLASSIFIED ELSEWHERE Qualifiers: Heart failure presence: with heart failure Qualified Code(s): I11.0 - Hypertensive heart disease with heart failure; I43 - Cardiomyopathy in diseases classified elsewhere (6) Ischemic cardiomyopathy Code(s): I25.5 - ISCHEMIC CARDIOMYOPATHY (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 male admitted with SOB/Acute respiratory failure, Pulmonary congestion, Fever, with Femoral catheter in place Sepsis PNA - Klebsiella/MRSA Streptococcal bacteremia Persistent Fever Lt knee pain/mild swelling Renal Failure - now on HD CHF/Pulm edema Hypertensive urgency CAD s/p [place] s/p hypoxic resp failure plan continue current abx patient improving incentive caleb rest as per the team
--- NOTE | 2018-05-05 11:49 | PN ---
Progress Note, Physician History of Present Illness: Dyspnea improving with HD/UF. remains SR with PVC. - Current Medication List Current Medications: Active Medications Atorvastatin Calcium (Lipitor -) 80 mg PO HS [facility] Last Admin: 05/04/18 22:11 Dose: 80 mg Calcium Acetate (Phoslo -) 1,334 mg PO TIDCM [facility] Last Admin: 05/05/18 10:17 Dose: 1,334 mg Carvedilol (Coreg -) 25 mg PO BID [facility] Last Admin: 05/05/18 10:18 Dose: 25 mg Donepezil HCl (Aricept -) 10 mg PO HS [facility] Last Admin: 05/04/18 22:12 Dose: 10 mg Doxycycline Hyclate (Vibramycin -) 100 mg PO BID@1000,1800 [facility] Last Admin: 05/05/18 10:17 Dose: 100 mg Heparin Sodium (Porcine) (Heparin -) 1,000 unit IVPUSH PRN PRN PRN Reason: Heparin Heparin Sodium (Porcine) (Heparin -) 5,000 unit IVPUSH PRN PRN PRN Reason: Heparin Last Admin: 05/04/18 21:00 Dose: 5,000 unit Hydralazine HCl (Apresoline -) 50 mg PO TID [facility] Last Admin: 05/05/18 05:53 Dose: 50 mg Ceftriaxone Sodium 1 gm/ (Dextrose) 50 mls @ 100 mls/hr IVPB DAILY [facility]; Protocol Last Admin: 05/05/18 10:17 Dose: 100 mls/hr HEPARIN SOD,PORK IN 0.45% NACL (Heparin-1/2ns 25,000 Units/500) 25,000 units in 500 mls @ 16 mls/hr IVPB TITR [facility]; Protocol Last Admin: 05/05/18 10:18 Dose: 1,350 unit/hr, 27 mls/hr Isosorbide Mononitrate (Imdur -) 60 mg PO DAILY [facility] Last Admin: 05/05/18 10:18 Dose: 60 mg Lidocaine (Lidoderm Patch -) 1 patch TP DAILY [facility] Last Admin: 05/05/18 10:18 Dose: 1 patch Lidocaine HCl (Xylocaine 2% Viscous Oral -) 20 ml MM Q6H PRN PRN Reason: ORAL PAIN/MOUTH SORES Metoprolol Tartrate (Lopressor Injection -) 5 mg IVPUSH Q4H PRN PRN Reason: HYPERTENSION Miscellaneous (Lidoderm Patch Removal) 1 each MC DAILY@2200 [facility] Last Admin: 05/04/18 22:13 Dose: Not Given Pantoprazole Sodium (Protonix -) 20 mg PO DAILY [facility] Last Admin: 05/05/18 10:18 Dose: 20 mg Sacubitril/Valsartan (Entresto 97 Mg-103 Mg Tablet) 1 tab PO BID [facility] Last Admin: 05/05/18 10:17 Dose: 1 tab Tamsulosin HCl (Flomax -) 0.4 mg PO DAILY@0830 [facility] Last Admin: 05/05/18 10:17 Dose: 0.4 mg Warfarin Sodium (Coumadin -) 5 mg PO DAILY@1800 [facility] Last Admin: 05/04/18 17:07 Dose: 5 mg - Objective Vital Signs: Vital Signs Temperature 99 F 05/05/18 10:00 Pulse Rate 74 05/05/18 10:00 Respiratory Rate 16 05/05/18 10:00 Blood Pressure 130/52 05/05/18 10:00 O2 Sat by Pulse Oximetry (%) 100 05/04/18 22:00 Constitutional: Yes: No Distress, Calm, Thin Neck: Yes: Supple Cardiovascular: Yes: Regular Rate and Rhythm Respiratory: Yes: Regular, CTA Bilaterally, On Nasal O2 Gastrointestinal: Yes: Normal Bowel Sounds, Soft Edema: No Labs: CBC, BMP 05/05/18 06:00 05/05/18 06:00 INR, PTT INR 1.20 (0.82-1.09) H 05/05/18 06:00 Problem List - Problems (1) Acute on chronic systolic (congestive) heart failure Code(s): I50.23 - ACUTE ON CHRONIC SYSTOLIC (CONGESTIVE) HEART FAILURE (2) Hypertensive cardiomyopathy Code(s): I11.9 - HYPERTENSIVE HEART DISEASE WITHOUT HEART FAILURE; I43 - CARDIOMYOPATHY IN DISEASES CLASSIFIED ELSEWHERE Qualifiers: Heart failure presence: with heart failure Qualified Code(s): I11.0 - Hypertensive heart disease with heart failure; I43 - Cardiomyopathy in diseases classified elsewhere (3) Hyperlipidemia Code(s): E78.5 - HYPERLIPIDEMIA, UNSPECIFIED Qualifiers: Hyperlipidemia type: pure hypercholesterolemia Qualified Code(s): E78.00 - Pure hypercholesterolemia, unspecified; E78.0 - Pure hypercholesterolemia (4) Ischemic cardiomyopathy Code(s): I25.5 - ISCHEMIC CARDIOMYOPATHY (5) End stage renal disease Code(s): N18.6 - END STAGE RENAL DISEASE (6) Old inferolateral myocardial infarction Code(s): I25.2 - OLD MYOCARDIAL INFARCTION (7) Anemia Code(s): D64.9 - ANEMIA, UNSPECIFIED Qualifiers: Anemia type: due to chronic kidney disease Assessment/Plan January 17, 2015 R&LH @ [facility]: 3 vessel CAD with DIRECTOR DESIGN RVA and OM2, elevated right and left heart pressures January 19, 2015 Echo: Mod LVH moderate decreased LVEF 40% with AK inferior and inferoseptal, mild AR, MR, mild LAE January 22, 2015 Lexiscan Myoview: Dense scar inferior wall, large lateral ischemia, inferolateral AK, LVEF 30$ January 21, 2015 Rest and redistribution Thallium: Scar involving entire inferior wall, basal to mid inferolateral, basal inferoseptal, and apex, no significant hibernating myocardiaum, dilated LV with severely decreased LVEF 27% April 23, 2018 Echo: Moderately dilated with moderate decreased LV fxn, mild decreased RV fxn, mild AR, mild LAE 1. Acute on chronic diastolic/systolic failure and pulmonary edema referable to 2. Hypertensive urgency in context of dietary/medical indiscretion (previously declined HD), r/o renal artery stenosis 3. Post acute hypoxic respiratory failure 4. CAD s/p TN, demand ischemic injury 5. Ischemic cardiomyopathy (moderate) 6. Acute on Chronic Renal Failure requiring HD 7. Paroxysmal atrial fibrillation with subtherapeutic INR 8. Resolved Altered Mental Status r/o Hypertensive vs Uremic Encephalopathy 9. Anemia of CKD 10. PNA - Klebsiella/MRSA, Streptococcal bacteremia P:1. Volume removal via UF/HD via left PC 2. Continue carvedilol 25 bid, hydralazine 50 tid, Imdur 60 qd (BiDil), Lipitor 80 qd, and Entresto 97/103 bid 3. Continue heparin gtt -> coumadin per INR with GI protection 4. Renal arterial Doppler to R/O renal artery stenosis 5. O2 to maintain saturation, complete abx course per ID, PT as tolerated 6. Pt to f/u with Dr. Jeannette Kaiser at [facility] upon d/c
--- NOTE | 2018-05-05 13:04 | PN ---
Progress Note (short form) - Note Progress Note: c/o tenderness over permacath site. has not requested pain medications for this. Denies CP, SOB, fever, chills, cough, N/V/C/D, bleeding Current Medications Generic Name Dose Route Start Last Admin Trade Name Freq PRN Reason Stop Dose Admin Atorvastatin Calcium 80 mg 05/02/18 22:00 05/04/18 22:11 Lipitor - PO 80 mg HS [facility] Administration Calcium Acetate 1,334 mg 05/03/18 08:00 05/05/18 12:21 Phoslo - PO 1,334 mg TIDCM [facility] Administration Carvedilol 25 mg 05/02/18 22:00 05/05/18 10:18 Coreg - PO 25 mg BID [facility] Administration Donepezil HCl 10 mg 05/02/18 22:00 05/04/18 22:12 Aricept - PO 10 mg HS [facility] Administration Doxycycline Hyclate 100 mg 05/03/18 18:00 05/05/18 10:17 Vibramycin - PO 100 mg BID@1000,1800 [facility] Administration Heparin Sodium (Porcine) 1,000 unit 05/03/18 12:36 Heparin - IVPUSH PRN PRN Heparin Heparin Sodium (Porcine) 5,000 unit 05/03/18 12:36 05/04/18 21:00 Heparin - IVPUSH 5,000 unit PRN PRN Administration Heparin Hydralazine HCl 50 mg 05/02/18 22:00 05/05/18 05:53 Apresoline - PO 50 mg TID [facility] Administration Ceftriaxone Sodium 1 gm/ 50 mls @ 100 mls/hr 05/03/18 17:00 05/05/18 10:17 Dextrose IVPB 100 mls/hr DAILY [facility] Administration Protocol HEPARIN SOD,PORK IN 0.45% NACL 25,000 units in 500 mls @ 16 mls/hr 05/05/18 05 :30 05/05/18 10:18 Heparin-1/2ns 25,000 Units/500 IVPB 1,350 unit/hr TITR [facility] 27 mls/hr Administration Protocol 800 UNIT/HR Isosorbide Mononitrate 60 mg 05/03/18 10:00 05/05/18 10:18 Imdur - PO 60 mg DAILY [facility] Administration Lidocaine 1 patch 05/03/18 10:00 06/30/18 10:18 Lidoderm Patch - TP 1 patch DAILY [facility] Administration Lidocaine HCl 20 ml 05/02/18 18:24 Xylocaine 2% Viscous Oral - MM Q6H PRN ORAL PAIN/MOUTH SORES Metoprolol Tartrate 5 mg 05/02/18 21:40 Lopressor Injection - IVPUSH Q4H PRN HYPERTENSION Miscellaneous 1 each 05/03/18 22:00 05/04/18 22:13 Lidoderm Patch Removal MC Not Given DAILY@2200 [facility] Pantoprazole Sodium 20 mg 05/03/18 10:00 05/05/18 10:18 Protonix - PO 20 mg DAILY [facility] Administration Sacubitril/Valsartan 1 tab 05/03/18 10:00 05/05/18 10:17 Entresto 97 Mg-103 Mg Tablet PO 1 tab BID [facility] Administration Tamsulosin HCl 0.4 mg 05/03/18 08:30 05/05/18 10:17 Flomax - PO 0.4 mg DAILY@0830 [facility] Administration Warfarin Sodium 5 mg 05/03/18 18:00 05/04/18 17:07 Coumadin - PO 5 mg DAILY@1800 [facility] Administration Last Vital Signs Temp Pulse Resp BP Pulse Ox 99 F 74 16 130/52 100 05/05/18 10:00 05/05/18 10:00 05/05/18 10:00 05/05/18 10:00 05/04/18 22:00 Intake & Output 05/02/18 05/03/18 05/04/18 05/05/18 23:59 23:59 23:59 23:59 Intake Total 1062 1148 682 300 Output Total 100 100 Balance 962 1148 682 200 Weight 130 lb 130 lb General NAD CV S1 S2 irregular +tenderness over permacath site. no surrounding erythema or swelling no active drainage or bleeding Lungs CTA B/L no wheezing/rales/rhonchi Abdomen soft NT/ND +LIJ permacath ASSESSMENT AND PLAN: 62yo M with PMH CKD (has refused HD in the past), and CAD presenting with progressively worsening shortness of breath and altered mental status. in the ER was found to have SBP 240. code larkin was activated in the ER 1. ACute toxic/metabolic encephalopathy-due to uremia and HTN crisis. now at baseline. 2. acute hypoxic respiratory failure- due to early ARDS with poor mental state. intubated and now extubated. saturating well on RA 3. HTN crisis-improved. cont current regimen. 4. Sepsis due to strep bacteremia- clinically improved. repeat BCx negative. abx switched to ceftriaxone and doxy po. day 8 of total abx. will d/w ID about duration. ID on board. 5. Afib wiht RVR-rate improved. INR remains subtherapeutic. will increase coumadin to 7.5mg. daily INR 6. hyperphosphatemia- due to renal failure- now resolved. on phoslo 7. acute on CKD stage V now on HD-s/P LIJ permacath for HD. HD per normal schedule. will need outpatient HD arranged.Cont HD per nephro 8. L knee swelling- reports as improved. seen by ortho. likely hematoma no intervention at this time 9. dysuria- UA negative for infection 10. Elevated troponin- likely demand ischemia. can have further ischemia workup as outpatient 11. combination of iron def anemia and of chronic disease- slight downtrend. will monitor. started on venofer and HUSEYIN to receive weekly with HD.no indication for txn 12. dementia- on aricept 13. DVT ppx- hep ggt 14. agreeable to SNF placement once medically optimized 15. LIJ permacath pain- liekly due to recent placement and surrounding inflammation. ordered tylenol for pain will monitor if persists will request vasc surgery to re-evaluate Visit type - Emergency Visit Emergency Visit: Yes ED Registration Date: 04/22/18 Care time: The patient presented to the Emergency Department on the above date and was hospitalized for further evaluation of their emergent condition. - New Patient This patient is new to me today: No - Critical Care Critical Care patient: No - Discharge Referral Referred to [facility] Med P.C.: No
[2018-05-05] MEDS ORDERED: WARFARIN NA 7.5 MG TABLET (FP) PO SCH (18:00)
[2018-05-05] MEDS: ACETAMINOPHEN 325 MG TABLET (FP) PO PRN (22:11)
[2018-05-05] MEDS: DONEPEZIL HCL 10 MG TABLET (FP) PO SCH (22:12)
[2018-05-05] MEDS: ATORVASTATIN CA 80 MG TABLET (FP) PO SCH (22:12)
[2018-05-05] MEDS: LIDOCAINE PATCH REMOVAL MC SCH (22:13)
[2018-05-06] MEDS: HEPARIN SOD,PORK IN 0.45% NACL 25,000 UNITS/500 ML INFUS.BAG IVPB SCH (06:00)
[2018-05-06] MEDS: hydrALAZINE HCL 50 MG TABLET (FP) PO SCH ×3 (06:00→21:40)
[2018-05-06 08:18] LABS: HEMATOCRIT 25.7 % (35.4-49); HEMOGLOBIN 8.1 GM/dL (11.7-16.9); MCH 27.7 pg (25.7-33.7); MCHC 31.7 g/dl (32.0-35.9); MEAN CELL VOLUME 87.5 fl (80-96); MEAN PLT VOLUME 8.7 fl (7.5-11.1); PLATELET COUNT 344 K/MM3 (134-434); RBC 2.94 M/mm3 (4.00-5.60); RDW 17.9 % (11.9-15.9); WHITE BLOOD COUNT 11.3 K/mm3 (4.0-10.0)
[2018-05-06] MEDS: CALCIUM ACETATE 667 MG CAPSULE (FP) PO SCH ×3 (08:24→17:42)
[2018-05-06 08:31] LABS: INR 1.59 (0.82-1.09)
[2018-05-06] MEDS ORDERED: PT OWN MED DRAWER 7, Y5N ONE (09:19)
[2018-05-06] MEDS ORDERED: cefTRIAXone SODIUM 1 GM VIAL ONE (09:20)
[2018-05-06] MEDS ORDERED: DEXTROSE 5%-WATER - 50 ML IVPB ONE (09:20)
[2018-05-06] MEDS: CARVEDILOL 25 MG TABLET (FP) PO SCH ×2 (09:24→21:40)
[2018-05-06] MEDS: DOXYCYCLINE HYCLATE 100 MG CAPSULE PO SCH ×2 (09:24→17:43)
[2018-05-06] MEDS: ISOSORBIDE MONONITRATE 60 MG TAB.SR.24H (FP) PO SCH (09:25)
[2018-05-06] MEDS: LIDOCAINE 5% TOPICAL PATCH TP SCH (09:25)
[2018-05-06] MEDS: PANTOPRAZOLE 20 MG TABLET (FP) PO SCH (09:25)
[2018-05-06] MEDS: TAMSULOSIN HCL 0.4 MG CAP.ER.24H (FP) PO SCH (09:25)
[2018-05-06] MEDS: SACUBITRIL/VALSARTAN 97 MG-103 MG TABLET PO SCH ×2 (09:26→21:41)
[2018-05-06] MEDS: CEFTRIAXONE 1 GM in DEXTROSE 5%-WATER - 50 ML IVPB SCH (09:26)
--- NOTE | 2018-05-06 11:36 | PN ---
Progress Note, Physician History of Present Illness: patient stable no complaints doing well - Current Medication List Current Medications: Active Medications Acetaminophen (Tylenol -) 650 mg PO Q6H PRN PRN Reason: PAIN Last Admin: 05/05/18 22:11 Dose: 650 mg Atorvastatin Calcium (Lipitor -) 80 mg PO HS [facility] Last Admin: 05/05/18 22:12 Dose: 80 mg Calcium Acetate (Phoslo -) 1,334 mg PO TIDCM [facility] Last Admin: 05/06/18 08:24 Dose: 1,334 mg Carvedilol (Coreg -) 25 mg PO BID [facility] Last Admin: 05/06/18 09:24 Dose: 25 mg Docusate Sodium (Colace -) 100 mg PO DAILY [facility] Donepezil HCl (Aricept -) 10 mg PO HS [facility] Last Admin: 05/05/18 22:12 Dose: 10 mg Doxycycline Hyclate (Vibramycin -) 100 mg PO BID@1000,1800 [facility] Last Admin: 05/06/18 09:24 Dose: 100 mg Heparin Sodium (Porcine) (Heparin -) 1,000 unit IVPUSH PRN PRN PRN Reason: Heparin Heparin Sodium (Porcine) (Heparin -) 5,000 unit IVPUSH PRN PRN PRN Reason: Heparin Last Admin: 05/04/18 21:00 Dose: 5,000 unit Hydralazine HCl (Apresoline -) 50 mg PO TID [facility] Last Admin: 05/06/18 06:00 Dose: 50 mg Ceftriaxone Sodium 1 gm/ (Dextrose) 50 mls @ 100 mls/hr IVPB DAILY [facility]; Protocol Last Admin: 05/06/18 09:26 Dose: 100 mls/hr HEPARIN SOD,PORK IN 0.45% NACL (Heparin-1/2ns 25,000 Units/500) 25,000 units in 500 mls @ 16 mls/hr IVPB TITR [facility]; Protocol Last Admin: 05/06/18 06:00 Dose: 1,350 unit/hr, 27 mls/hr Isosorbide Mononitrate (Imdur -) 60 mg PO DAILY [facility] Last Admin: 05/06/18 09:25 Dose: 60 mg Lidocaine (Lidoderm Patch -) 1 patch TP DAILY [facility] Last Admin: 05/06/18 09:25 Dose: 1 patch Lidocaine HCl (Xylocaine 2% Viscous Oral -) 20 ml MM Q6H PRN PRN Reason: ORAL PAIN/MOUTH SORES Metoprolol Tartrate (Lopressor Injection -) 5 mg IVPUSH Q4H PRN PRN Reason: HYPERTENSION Miscellaneous (Lidoderm Patch Removal) 1 each MC DAILY@2200 [facility] Last Admin: 05/05/18 22:13 Dose: Not Given Pantoprazole Sodium (Protonix -) 20 mg PO DAILY [facility] Last Admin: 05/06/18 09:25 Dose: 20 mg Polyethylene Glycol (Miralax (For Daily Use) -) 17 gm PO DAILY [facility] Sacubitril/Valsartan (Entresto 97 Mg-103 Mg Tablet) 1 tab PO BID [facility] Last Admin: 05/06/18 09:26 Dose: 1 tab Tamsulosin HCl (Flomax -) 0.4 mg PO DAILY@0830 [facility] Last Admin: 05/06/18 09:25 Dose: 0.4 mg Warfarin Sodium (Coumadin -) 6 mg PO DAILY@1800 [facility] - Objective Vital Signs: Vital Signs Temperature 98.7 F 05/06/18 09:00 Pulse Rate 76 05/06/18 09:00 Respiratory Rate 20 05/06/18 09:00 Blood Pressure 133/66 05/06/18 09:00 O2 Sat by Pulse Oximetry (%) 98 05/06/18 09:00 Constitutional: Yes: No Distress, Calm Cardiovascular: Yes: Regular Rate and Rhythm Respiratory: Yes: Regular, CTA Bilaterally Gastrointestinal: Yes: Normal Bowel Sounds, Soft Musculoskeletal: Yes: WNL Extremities: Yes: WNL Neurological: Yes: Alert, Oriented Psychiatric: Yes: Alert, Oriented Labs: CBC, BMP 05/06/18 06:20 05/05/18 06:00 INR, PTT INR 1.59 (0.82-1.09) H D 05/06/18 08:09 Assessment/Plan Problem List - Problems (1) Acute on chronic systolic (congestive) heart failure Code(s): I50.23 - ACUTE ON CHRONIC SYSTOLIC (CONGESTIVE) HEART FAILURE (2) CAD (coronary artery disease) Code(s): I25.10 - ATHSCL HEART DISEASE OF [place] CORONARY ARTERY W/O ANG PCTRS Qualifiers: Coronary Disease-Associated Artery/Lesion type: [place] artery [place] vs. transplanted heart: [place] heart Associated angina: without angina Qualified Code(s): I25.10 - Atherosclerotic heart disease of [place] coronary artery without angina pectoris (3) End stage renal disease Code(s): N18.6 - END STAGE RENAL DISEASE (4) Hyperlipidemia Code(s): E78.5 - HYPERLIPIDEMIA, UNSPECIFIED Qualifiers: Hyperlipidemia type: pure hypercholesterolemia Qualified Code(s): E78.00 - Pure hypercholesterolemia, unspecified; E78.0 - Pure hypercholesterolemia (5) Hypertensive cardiomyopathy Code(s): I11.9 - HYPERTENSIVE HEART DISEASE WITHOUT HEART FAILURE; I43 - CARDIOMYOPATHY IN DISEASES CLASSIFIED ELSEWHERE Qualifiers: Heart failure presence: with heart failure Qualified Code(s): I11.0 - Hypertensive heart disease with heart failure; I43 - Cardiomyopathy in diseases classified elsewhere (6) Ischemic cardiomyopathy Code(s): I25.5 - ISCHEMIC CARDIOMYOPATHY (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 male admitted with SOB/Acute respiratory failure, Pulmonary congestion, Fever, with Femoral catheter in place Sepsis PNA - Klebsiella/MRSA Streptococcal bacteremia Persistent Fever Lt knee pain/mild swelling Renal Failure - now on HD CHF/Pulm edema Hypertensive urgency CAD s/p RI s/p hypoxic resp failure plan continue current abx patient improving incentive caleb rest as per the team total course of 2 weeks
[2018-05-06] MEDS: POLYETHYLENE GLYCOL 3350 119 GM BTL PO SCH (12:28)
[2018-05-06] MEDS: DOCUSATE SODIUM 100 MG CAPSULE (FP) PO SCH (12:28)
[2018-05-06 12:39] LABS: HEMATOCRIT 28.7 % (35.4-49); HEMOGLOBIN 9.2 GM/dL (11.7-16.9); MCH 27.8 pg (25.7-33.7); MCHC 31.9 g/dl (32.0-35.9); MEAN CELL VOLUME 87.1 fl (80-96); MEAN PLT VOLUME 8.5 fl (7.5-11.1); PLATELET COUNT 411 K/MM3 (134-434); RDW 17.6 % (11.9-15.9); WHITE BLOOD COUNT 12.2 K/mm3 (4.0-10.0)
--- NOTE | 2018-05-06 12:50 | PN ---
Progress Note, Physician History of Present Illness: OOB to chair, denies chest pain or dyspnea. Remains SR with PVC. - Current Medication List Current Medications: Active Medications Acetaminophen (Tylenol -) 650 mg PO Q6H PRN PRN Reason: PAIN Last Admin: 05/05/18 22:11 Dose: 650 mg Atorvastatin Calcium (Lipitor -) 80 mg PO HS [facility] Last Admin: 05/05/18 22:12 Dose: 80 mg Calcium Acetate (Phoslo -) 1,334 mg PO TIDCM [facility] Last Admin: 05/06/18 12:28 Dose: 1,334 mg Carvedilol (Coreg -) 25 mg PO BID [facility] Last Admin: 05/06/18 09:24 Dose: 25 mg Docusate Sodium (Colace -) 100 mg PO DAILY [facility] Last Admin: 05/06/18 12:28 Dose: 100 mg Donepezil HCl (Aricept -) 10 mg PO HS [facility] Last Admin: 05/05/18 22:12 Dose: 10 mg Doxycycline Hyclate (Vibramycin -) 100 mg PO BID@1000,1800 [facility] Last Admin: 05/06/18 09:24 Dose: 100 mg Heparin Sodium (Porcine) (Heparin -) 1,000 unit IVPUSH PRN PRN PRN Reason: Heparin Heparin Sodium (Porcine) (Heparin -) 5,000 unit IVPUSH PRN PRN PRN Reason: Heparin Last Admin: 05/04/18 21:00 Dose: 5,000 unit Hydralazine HCl (Apresoline -) 50 mg PO TID [facility] Last Admin: 05/06/18 06:00 Dose: 50 mg Ceftriaxone Sodium 1 gm/ (Dextrose) 50 mls @ 100 mls/hr IVPB DAILY [facility]; Protocol Last Admin: 05/06/18 09:26 Dose: 100 mls/hr HEPARIN SOD,PORK IN 0.45% NACL (Heparin-1/2ns 25,000 Units/500) 25,000 units in 500 mls @ 16 mls/hr IVPB TITR [facility]; Protocol Last Admin: 05/06/18 06:00 Dose: 1,350 unit/hr, 27 mls/hr Isosorbide Mononitrate (Imdur -) 60 mg PO DAILY [facility] Last Admin: 05/06/18 09:25 Dose: 60 mg Lidocaine (Lidoderm Patch -) 1 patch TP DAILY [facility] Last Admin: 05/06/18 09:25 Dose: 1 patch Lidocaine HCl (Xylocaine 2% Viscous Oral -) 20 ml MM Q6H PRN PRN Reason: ORAL PAIN/MOUTH SORES Metoprolol Tartrate (Lopressor Injection -) 5 mg IVPUSH Q4H PRN PRN Reason: HYPERTENSION Miscellaneous (Lidoderm Patch Removal) 1 each MC DAILY@2200 [facility] Last Admin: 05/05/18 22:13 Dose: Not Given Pantoprazole Sodium (Protonix -) 20 mg PO DAILY [facility] Last Admin: 05/06/18 09:25 Dose: 20 mg Polyethylene Glycol (Miralax (For Daily Use) -) 17 gm PO DAILY [facility] Last Admin: 05/06/18 12:28 Dose: Not Given Sacubitril/Valsartan (Entresto 97 Mg-103 Mg Tablet) 1 tab PO BID [facility] Last Admin: 05/06/18 09:26 Dose: 1 tab Tamsulosin HCl (Flomax -) 0.4 mg PO DAILY@0830 [facility] Last Admin: 05/06/18 09:25 Dose: 0.4 mg Warfarin Sodium (Coumadin -) 6 mg PO DAILY@1800 [facility] - Objective Vital Signs: Vital Signs Temperature 98.7 F 05/06/18 09:00 Pulse Rate 76 05/06/18 09:00 Respiratory Rate 20 05/06/18 09:00 Blood Pressure 133/66 05/06/18 09:00 O2 Sat by Pulse Oximetry (%) 98 05/06/18 09:00 Constitutional: Yes: No Distress, Calm, Thin Neck: Yes: Supple Cardiovascular: Yes: Regular Rate and Rhythm Respiratory: Yes: Regular, CTA Bilaterally, On Nasal O2 Gastrointestinal: Yes: Normal Bowel Sounds, Soft Edema: No Labs: CBC, BMP 05/06/18 12:28 05/05/18 06:00 INR, PTT INR 1.59 (0.82-1.09) H D 05/06/18 08:09 Problem List - Problems (1) Acute on chronic systolic (congestive) heart failure Code(s): I50.23 - ACUTE ON CHRONIC SYSTOLIC (CONGESTIVE) HEART FAILURE (2) Hypertensive cardiomyopathy Code(s): I11.9 - HYPERTENSIVE HEART DISEASE WITHOUT HEART FAILURE; I43 - CARDIOMYOPATHY IN DISEASES CLASSIFIED ELSEWHERE Qualifiers: Heart failure presence: with heart failure Qualified Code(s): I11.0 - Hypertensive heart disease with heart failure; I43 - Cardiomyopathy in diseases classified elsewhere (3) Hyperlipidemia Code(s): E78.5 - HYPERLIPIDEMIA, UNSPECIFIED Qualifiers: Hyperlipidemia type: pure hypercholesterolemia Qualified Code(s): E78.00 - Pure hypercholesterolemia, unspecified; E78.0 - Pure hypercholesterolemia (4) Ischemic cardiomyopathy Code(s): I25.5 - ISCHEMIC CARDIOMYOPATHY (5) End stage renal disease Code(s): N18.6 - END STAGE RENAL DISEASE (6) Old inferolateral myocardial infarction Code(s): I25.2 - OLD MYOCARDIAL INFARCTION (7) Anemia Code(s): D64.9 - ANEMIA, UNSPECIFIED Qualifiers: Anemia type: due to chronic kidney disease Assessment/Plan January 17, 2015 R&LHc @ [facility]: 3 vessel CAD 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, elevated right and left heart pressures January 19, 2015 Echo: Mod LVH moderate decreased LVEF 40% with AK inferior and inferoseptal, mild AR, MR, mild LAE January 22, 2015 Lexiscan Myoview: Dense scar inferior wall, large lateral ischemia, inferolateral AK, LVEF 30$ January 21, 2015 Rest and redistribution Thallium: Scar involving entire inferior wall, basal to mid inferolateral, basal inferoseptal, and apex, no significant hibernating myocardiaum, dilated LV with severely decreased LVEF 27% April 23, 2018 Echo: Moderately dilated with moderate decreased LV fxn, mild decreased RV fxn, mild AR, mild LAE 1. Acute on chronic diastolic/systolic failure and pulmonary edema referable to 2. Hypertensive urgency in context of dietary/medical indiscretion (previously declined HD), r/o renal artery stenosis 3. Post acute hypoxic respiratory failure 4. CAD s/p [place], demand ischemic injury 5. Ischemic cardiomyopathy (moderate) 6. Acute on Chronic Renal Failure requiring HD 7. Paroxysmal atrial fibrillation with subtherapeutic INR 8. Resolved Altered Mental Status r/o Hypertensive vs Uremic Encephalopathy 9. Anemia of CKD 10. PNA - Klebsiella/MRSA, Streptococcal bacteremia P:1. Volume removal via UF/HD via left PC 2. Continue carvedilol 25 bid, hydralazine 50 tid, Imdur 60 qd (BiDil), Lipitor 80 qd, and Entresto 97/103 bid 3. Continue heparin gtt -> coumadin per INR with GI protection 4. Renal arterial Doppler to R/O renal artery stenosis 5. O2 to maintain saturation, complete abx course per ID, PT as tolerated 6. Pt to f/u with Dr. Jeannette Kaiser at [facility] upon d/c
--- NOTE | 2018-05-06 14:49 | PN ---
Teaching Attending Note Name of Resident: Hannah Mills ATTENDING PHYSICIAN STATEMENT I saw and evaluated the patient. I reviewed the resident's note and discussed the case with the resident. I agree with the resident's findings and plan as documented. SUBJECTIVE:states pain at catheter site is improved. resolved iwht tylenol. denies Cp, SOB, fever, chills, N/v/C/D OBJECTIVE: Last Vital Signs Temp Pulse Resp BP Pulse Ox 98.7 F 76 20 133/66 98 05/06/18 09:00 05/06/18 09:00 05/06/18 09:00 05/06/18 09:00 05/06/18 09:00 Intake & Output 05/03/18 05/04/18 05/05/18 05/06/18 23:59 23:59 23:59 23:59 Intake Total 9640 073 0458 324 Output Total 400 Balance 1148 682 644 324 Weight 130 lb 130 lb 139 lb 12.8 oz General NAD CV S1 S2 irregular +tenderness over permacath site. no surrounding erythema or swelling no active drainage or bleeding Lungs CTA B/L no wheezing/rales/rhonchi Abdomen soft NT/ND +LIJ permacath ASSESSMENT AND PLAN: 62yo M with PMH CKD (has refused HD in the past), and CAD presenting with progressively worsening shortness of breath and altered mental status. in the ER was found to have SBP 240. code larkin was activated in the ER 1. ACute toxic/metabolic encephalopathy-due to uremia and HTN crisis. now at baseline. 2. acute hypoxic respiratory failure- due to early ARDS with poor mental state. intubated and now extubated. saturating well on RA 3. HTN crisis-improved. cont current regimen. 4. Sepsis due to strep bacteremia- clinically improved. repeat BCx negative. abx switched to ceftriaxone and doxy po. day 9 of total abx. will d/w ID about duration. ID on board. 5. Afib wiht RVR-rate improved. INR remains subtherapeutic however large jump from yesterday. reduce coumadn to 6mg. cont hep ggt. daily INR 6. hyperphosphatemia- due to renal failure- now resolved. on phoslo 7. acute on CKD stage V now on HD-s/P LIJ permacath for HD. HD per normal schedule. will need outpatient HD arranged.Cont HD per nephro 8. L knee swelling- reports as improved. seen by ortho. likely hematoma no intervention at this time 9. dysuria- UA negative for infection 10. Elevated troponin- likely demand ischemia. can have further ischemia workup as outpatient 11. combination of iron def anemia and of chronic disease- slight downtrend. repeat CBC. started on venofer and HUSEYIN to receive weekly with HD.no indication for txn 12. dementia- on aricept 13. DVT ppx- hep ggt 14. agreeable to SNF placement once medically optimized 15. LIJ permacath pain- liekly due to recent placement and surrounding inflammation.improved. cont tylenol prn. should regress with time
--- NOTE | 2018-05-06 15:35 | PN ---
Progress Note (short form) - Note Progress Note: 62 year old gentleman with end stage renal disease admitted with hypertensive crisis and uremia. Patient wa intubated on admission and initiated on hemodialysis . Patient is feeling better today. Out of bed to chair and in the company of family members Reports feeling better today and has improved appetite. Vital Signs Period Temp Pulse Resp BP Sys/Wyatt Pulse Ox Last 24 Hr 98.2 F-99 F 67-89 18-20 110-134/51-66 98-100 Vital Signs (72 hours) 05/03/18 05/03/18 05/03/18 17:00 20:30 21:00 Temperature 98.8 F 99.1 F Pulse Rate 76 74 Respiratory 20 20 Rate Blood Pressure 130/66 151/74 O2 Sat by Pulse 100 Oximetry (%) 05/04/18 05/04/18 05/04/18 02:00 05:39 06:45 Temperature 98.3 F 98.8 F 98.8 F Pulse Rate 76 78 74 Respiratory 20 20 18 Rate Blood Pressure 142/63 153/70 167/79 O2 Sat by Pulse Oximetry (%) 05/04/18 05/04/18 05/04/18 06:50 07:20 07:50 Temperature Pulse Rate 78 66 61 Respiratory 18 18 18 Rate Blood Pressure 162/76 144/64 137/69 O2 Sat by Pulse Oximetry (%) 05/04/18 05/04/18 05/04/18 08:00 08:20 08:50 Temperature 98.7 F Pulse Rate 75 71 73 Respiratory 20 18 18 Rate Blood Pressure 151/73 151/73 135/67 O2 Sat by Pulse Oximetry (%) 05/04/18 05/04/18 05/04/18 09:00 09:20 09:50 Temperature Pulse Rate 74 72 Respiratory 18 18 18 Rate Blood Pressure 124/61 141/66 O2 Sat by Pulse 100 Oximetry (%) 05/04/18 05/04/18 05/04/18 09:55 15:43 17:00 Temperature 98.5 F 99.5 F Pulse Rate 71 78 86 Respiratory 18 20 Rate Blood Pressure 147/76 146/74 153/79 O2 Sat by Pulse Oximetry (%) 05/04/18 05/04/18 05/05/18 21:00 22:00 02:00 Temperature 99.4 F 99.0 F Pulse Rate 85 83 Respiratory 20 20 20 Rate Blood Pressure 146/71 127/67 O2 Sat by Pulse 100 100 Oximetry (%) 05/05/18 05/05/18 05/05/18 05:00 05:21 10:00 Temperature 99.4 F 99 F 99 F Pulse Rate 99 H 82 74 Respiratory 18 20 16 Rate Blood Pressure 152/66 152/60 130/52 O2 Sat by Pulse Oximetry (%) 05/05/18 05/05/18 05/05/18 14:05 20:52 22:00 Temperature 99.2 F 99 F Pulse Rate 78 77 Respiratory 18 18 18 Rate Blood Pressure 132/89 134/64 O2 Sat by Pulse 100 98 Oximetry (%) 05/06/18 05/06/18 05/06/18 02:00 05:22 09:00 Temperature 98.2 F 98.8 F 98.7 F Pulse Rate 69 89 76 Respiratory 20 20 20 Rate Blood Pressure 120/56 118/51 133/66 O2 Sat by Pulse 98 Oximetry (%) 05/06/18 14:25 Temperature 98.9 F Pulse Rate 67 Respiratory 20 Rate Blood Pressure 110/56 O2 Sat by Pulse Oximetry (%) Lungs; coarse breath sound in both lung rangel, No wheezing appreciated Heart: S1 S2 irregular Abd; full, soft non-tender Ext: Decreasing bipedal edema Access; left chest wall hemocath. Musculo-skeletal; Able to stand with minimal assistance. Labs; CBCD WBC 12.2 K/mm3 (4.0-10.0) H 05/06/18 12:28 RBC 3.30 M/mm3 (4.00-5.60) L 05/06/18 12:28 Hgb 9.2 GM/dL (11.7-16.9) L 05/06/18 12:28 Hct 28.7 % (35.4-49) L 05/06/18 12:28 MCV 87.1 fl (80-96) 05/06/18 12:28 MCHC 31.9 g/dl (32.0-35.9) L 05/06/18 12:28 RDW 17.6 % (11.9-15.9) H 05/06/18 12:28 Plt Count 411 K/MM3 (134-434) 05/06/18 12:28 MPV 8.5 fl (7.5-11.1) 05/06/18 12:28 CMP Sodium 139 mmol/L (136-145) 05/05/18 06:00 Potassium 3.8 mmol/L (3.5-5.1) 05/05/18 06:00 Chloride 101 mmol/L (98-107) 05/05/18 06:00 Carbon Dioxide 31 mmol/L (21-32) 05/05/18 06:00 Anion Gap 7 (8-16) L 05/05/18 06:00 BUN 41 mg/dL (7-18) H 05/05/18 06:00 Creatinine 6.0 mg/dL (0.7-1.3) H 05/05/18 06:00 Creat Clearance w eGFR 9.55 (>60) 05/05/18 06:00 Random Glucose 103 mg/dL (74-106) 05/05/18 06:00 Calcium 8.3 mg/dL (8.5-10.1) L 05/05/18 06:00 Total Bilirubin 0.3 mg/dL (0.2-1.0) 05/05/18 06:00 AST 20 U/L (15-37) 05/05/18 06:00 ALT 27 U/L (12-78) 05/05/18 06:00 Alkaline Phosphatase 113 U/L (45-117) 05/05/18 06:00 Total Protein 5.7 g/dl (6.4-8.2) L 05/05/18 06:00 Albumin 1.9 g/dl (3.4-5.0) L 05/05/18 06:00 CARDIAC ENZYMES Creatine Kinase 226 IU/L (39-308) 04/22/18 13:55 Troponin I 0.39 ng/ml (0.00-0.05) H 04/23/18 10:30 A/P 62 year old man with recent onset of atrial fibrillation, hypertension and end stage renal disease. Continue iv ceftriaxone for strep bacteremia. Tentatively for repeat hemodialysis in a.m. Will follow pending transfer to [facility] for short term rehab. Problem List - Problems (1) Acute on chronic systolic (congestive) heart failure Code(s): I50.23 - ACUTE ON CHRONIC SYSTOLIC (CONGESTIVE) HEART FAILURE (2) End stage renal disease Code(s): N18.6 - END STAGE RENAL DISEASE (3) Hypertensive cardiomyopathy Code(s): I11.9 - HYPERTENSIVE HEART DISEASE WITHOUT HEART FAILURE; I43 - CARDIOMYOPATHY IN DISEASES CLASSIFIED ELSEWHERE Qualifiers: Heart failure presence: with heart failure Qualified Code(s): I11.0 - Hypertensive heart disease with heart failure; I43 - Cardiomyopathy in diseases classified elsewhere
[2018-05-06] MEDS ORDERED: SODIUM CHLORIDE 250 ML IV PRN (15:36)
[2018-05-06] MEDS: WARFARIN NA 3 MG TABLET PO SCH (17:43)
--- NOTE | 2018-05-06 21:32 | PN ---
Physical Exam: SUBJECTIVE: Patient seen and examined at bedside. Patient complained of pain in the LIJ insertion area. No overnight acute events as per nursing. OBJECTIVE: Vital Signs Period Temp Pulse Resp BP Sys/Wyatt Pulse Ox Last 24 Hr 98.2 F-99 F 67-89 18-20 110-139/48-67 98-98 Vital Signs Temp 98.8 F 05/06/18 20:40 Pulse 81 05/06/18 20:40 Resp 20 05/06/18 20:40 BP 138/48 05/06/18 20:40 Pulse Ox 98 05/06/18 20:32 Intake & Output 05/05/18 05/06/18 05/06/18 23:59 11:59 23:59 Intake Total 744 324 274 Output Total 300 Balance 444 324 274 Weight 63.412 kg Intake: IV 324 324 274 HEPARIN-1/2NS 25,000 324 324 224 UNITS/500 25,000 units In 500 ml @ 800 UNIT/HR 16 mls/hr IVPB TITR SHERON Rx#: [id number] saline lock 50 IVPB 100 Oral 320 Output: Urine 300 Void 300 Other: Voiding Method Urinal Urinal Urinal Bowel Movement Yes Yes # Bowel Movements 1 1 Weight Measurement Method Standing Scale GENERAL: The patient is awake, alert, and fully oriented, in no acute distress. LUNGS: Breath sounds equal, clear to auscultation bilaterally, no wheezes, no crackles HEART: Regular rate and rhythm, S1, S2 without murmur, rub or gallop. CHEST: Tenderness over Permacath Insertion site without erythema, drainage or bleeding ABDOMEN: Soft, nontender, nondistended, normoactive bowel sounds Laboratory Results - last 24 hr 05/06/18 05/06/18 05/06/18 06:20 06:20 08:09 WBC 11.3 H RBC 2.94 L Hgb 8.1 L Hct 25.7 L MCV 87.5 MCH 27.7 MCHC 31.7 L RDW 17.9 H Plt Count 344 MPV 8.7 PT with INR 18.00 H INR 1.59 H D PTT (Actin FS) 76.6 H D 05/06/18 12:28 WBC 12.2 H RBC 3.30 L Hgb 9.2 L Hct 28.7 L MCV 87.1 MCH 27.8 MCHC 31.9 L RDW 17.6 H Plt Count 411 MPV 8.5 PT with INR INR PTT (Actin FS) Active Medications Acetaminophen (Tylenol -) 650 mg PO Q6H PRN PRN Reason: PAIN Last Admin: 05/05/18 22:11 Dose: 650 mg Atorvastatin Calcium (Lipitor -) 80 mg PO HS [facility] Last Admin: 05/05/18 22:12 Dose: 80 mg Calcium Acetate (Phoslo -) 1,334 mg PO TIDCM [facility] Last Admin: 05/06/18 17:42 Dose: 1,334 mg Carvedilol (Coreg -) 25 mg PO BID [facility] Last Admin: 05/06/18 09:24 Dose: 25 mg Docusate Sodium (Colace -) 100 mg PO DAILY [facility] Last Admin: 05/06/18 12:28 Dose: 100 mg Donepezil HCl (Aricept -) 10 mg PO HS [facility] Last Admin: 05/05/18 22:12 Dose: 10 mg Doxycycline Hyclate (Vibramycin -) 100 mg PO BID@1000,1800 [facility] Last Admin: 05/06/18 17:43 Dose: 100 mg Epoetin Judson (Procrit -) 6,000 unit IVPUSH WD ONE Stop: 05/07/18 06:01 Heparin Sodium (Porcine) (Heparin -) 1,000 unit IVPUSH PRN PRN PRN Reason: Heparin Heparin Sodium (Porcine) (Heparin -) 5,000 unit IVPUSH PRN PRN PRN Reason: Heparin Last Admin: 05/04/18 21:00 Dose: 5,000 unit Hydralazine HCl (Apresoline -) 50 mg PO TID [facility] Last Admin: 05/06/18 15:02 Dose: 50 mg Ceftriaxone Sodium 1 gm/ (Dextrose) 50 mls @ 100 mls/hr IVPB DAILY [facility]; Protocol Last Admin: 05/06/18 09:26 Dose: 100 mls/hr HEPARIN SOD,PORK IN 0.45% NACL (Heparin-1/2ns 25,000 Units/500) 25,000 units in 500 mls @ 16 mls/hr IVPB TITR [facility]; Protocol Last Admin: 05/06/18 06:00 Dose: 1,350 unit/hr, 27 mls/hr Sodium Chloride (Normal Saline -) 250 mls @ 3,000 mls/hr IV PRN PRN PRN Reason: Hypotension during Dialysis Stop: 05/07/18 15:36 Isosorbide Mononitrate (Imdur -) 60 mg PO DAILY [facility] Last Admin: 05/06/18 09:25 Dose: 60 mg Lidocaine (Lidoderm Patch -) 1 patch TP DAILY [facility] Last Admin: 05/06/18 09:25 Dose: 1 patch Lidocaine HCl (Xylocaine 2% Viscous Oral -) 20 ml MM Q6H PRN PRN Reason: ORAL PAIN/MOUTH SORES Metoprolol Tartrate (Lopressor Injection -) 5 mg IVPUSH Q4H PRN PRN Reason: HYPERTENSION Miscellaneous (Lidoderm Patch Removal) 1 each MC DAILY@2200 [facility] Last Admin: 05/05/18 22:13 Dose: Not Given Pantoprazole Sodium (Protonix -) 20 mg PO DAILY [facility] Last Admin: 05/06/18 09:25 Dose: 20 mg Polyethylene Glycol (Miralax (For Daily Use) -) 17 gm PO DAILY [facility] Last Admin: 05/06/18 12:28 Dose: Not Given Sacubitril/Valsartan (Entresto 97 Mg-103 Mg Tablet) 1 tab PO BID [facility] Last Admin: 05/06/18 09:26 Dose: 1 tab Tamsulosin HCl (Flomax -) 0.4 mg PO DAILY@0830 [facility] Last Admin: 05/06/18 09:25 Dose: 0.4 mg Warfarin Sodium (Coumadin -) 6 mg PO DAILY@1800 [facility] Last Admin: 05/06/18 17:43 Dose: 6 mg ASSESSMENT/PLAN: 62 y/o M with PMHx of CKD who had refused HD in the past, and CAD presenting with worsening SOB and AMS. On initial evaluation in the ED, he was found to have SBP 240. Code larkin was activated in the ER 1. Acute toxic/metabolic encephalopathy - Due to uremia and HTN crisis - Now at baseline 2. Acute hypoxic respiratory failure - Due to early ARDS with poor mental state - Patient was intubated and now extubated - Saturating well on RA 3. HTN crisis - BP has remained below 140/90 - Continue current regimen 4. Sepsis due to strep bacteremia - clinically improved - repeat BCx: No growth after 5 days - Continue IV Ceftriaxone (Day 9 of total abx) - COntinue PO Doxycycline (Day 9 of total abx) - will consult ID about duration 5. Afib with RVR - rate improved - INR remains subtherapeutic but increased significantly, Dose reduced to 6mg - Continue heparin ggt - Ordered daily INR 6. hyperphosphatemia - due to renal failure - Resolved - Continue Phoslo 1,334 mg PO TIDCM SHERON 7. Acute on CKD - Stage V now on HD - S/P LIJ permacath for HD - HD per normal schedule, will need outpatient HD arranged 8. L knee swelling - Improved - Ortho consulted - likely hematoma no intervention at this time 9. Dysuria - UA negative for infection 10. Elevated troponin - likely demand ischemia - can have further ischemia workup as outpatient 11. Combination of iron def anemia and of chronic disease - Slight downtrend, CBC repeated, Hgb 9.2, Hct 28.7 - Started on venofer and HUSEYIN to receive weekly with HD 12. dementia - on aricept 13. DVT ppx - hep ggt 14. LIJ permacath pain - likely due to recent placement and surrounding inflammation - improved on Tylenol prn Dispo: agreeable to SNF placement once medically optimized Visit type - Emergency Visit Emergency Visit: Yes ED Registration Date: 04/22/18 Care time: The patient presented to the Emergency Department on the above date and was hospitalized for further evaluation of their emergent condition. - New Patient This patient is new to me today: Yes Date on this admission: 05/06/18 - Critical Care Critical Care patient: No - Discharge Referral Referred to [facility] No
[2018-05-06] MEDS: ACETAMINOPHEN 325 MG TABLET (FP) PO PRN (21:39)
[2018-05-06] MEDS: ATORVASTATIN CA 80 MG TABLET (FP) PO SCH (21:40)
[2018-05-06] MEDS: DONEPEZIL HCL 10 MG TABLET (FP) PO SCH (21:41)
[2018-05-06] MEDS: LIDOCAINE PATCH REMOVAL MC SCH (21:41)
[2018-05-07] MEDS ORDERED: PT OWN MED DRAWER 7, Y5N ONE ×2 (00:31→09:41)
[2018-05-07] MEDS: HEPARIN SOD,PORK IN 0.45% NACL 25,000 UNITS/500 ML INFUS.BAG IVPB SCH (01:00)
[2018-05-07] MEDS: hydrALAZINE HCL 50 MG TABLET (FP) PO SCH ×3 (05:13→21:51)
[2018-05-07 06:55] LABS: INR 2.3 (0.82-1.09)
[2018-05-07 07:01] LABS: BASO % 2.3 % (0-2.0); EOS % 2.9 % (0-4.5); HEMATOCRIT 24.1 % (35.4-49); HEMOGLOBIN 7.7 GM/dL (11.7-16.9); LYMPH % 10.5 % (8-40); MCH 27.8 pg (25.7-33.7); MCHC 32.1 g/dl (32.0-35.9); MEAN CELL VOLUME 86.6 fl (80-96); MEAN PLT VOLUME 8.8 fl (7.5-11.1); NEUT % 77.3 % (42.8-82.8); PLATELET COUNT 356 K/MM3 (134-434); RBC 2.78 M/mm3 (4.00-5.60); RDW 18.1 % (11.9-15.9); WHITE BLOOD COUNT 11.1 K/mm3 (4.0-10.0)
[2018-05-07] MEDS ORDERED: DEXTROSE 5%-WATER - 50 ML IVPB ONE (09:41)
[2018-05-07] MEDS ORDERED: cefTRIAXone SODIUM 1 GM VIAL ONE (09:41)
[2018-05-07] MEDS: LIDOCAINE 5% TOPICAL PATCH TP SCH (09:46)
[2018-05-07] MEDS: CALCIUM ACETATE 667 MG CAPSULE (FP) PO SCH ×3 (09:46→18:18)
--- NOTE | 2018-05-07 10:00 | PN ---
Progress Note, MAJOR ASSEMBLER - Note Progress Note: Selected Entries 05/06/18 05/06/18 05/06/18 02:00 05:22 09:00 Supper Temperature 98.2 F 98.8 F 98.7 F 05/06/18 05/06/18 05/06/18 14:25 17:00 20:40 Supper Temperature 98.9 F 98.7 F 98.8 F 05/06/18 05/07/18 05/07/18 22:00 02:25 04:53 Supper 100% Temperature 98.0 F 98.8 F 05/07/18 09:00 Supper Temperature 98.7 F Laboratory Tests 05/06/18 05/07/18 06:20 05:30 WBC 11.3 H 11.1 H Doing well with diet. Monitor PO tolerance. Instructed to eat slowly and carefully, especially after dialysis and to eliminate straw drinking for now. If signs/symptoms of dysphagia, may need MBS, as in pt or out pt.
--- NOTE | 2018-05-07 10:00 | PN ---
Progress Note, Physician Chief Complaint: Events noted Awake and alert Not in distress History of Present Illness: Patient was seen and examined. Awake. Chart was reviewed Denies chest pain, SOB or palpitations - Current Medication List Current Medications: Active Medications Acetaminophen (Tylenol -) 650 mg PO Q6H PRN PRN Reason: PAIN Last Admin: 05/06/18 21:39 Dose: 650 mg Atorvastatin Calcium (Lipitor -) 80 mg PO HS [facility] Last Admin: 05/06/18 21:40 Dose: 80 mg Calcium Acetate (Phoslo -) 1,334 mg PO TIDCM [facility] Last Admin: 05/07/18 09:46 Dose: 1,334 mg Carvedilol (Coreg -) 25 mg PO BID [facility] Last Admin: 05/06/18 21:40 Dose: 25 mg Docusate Sodium (Colace -) 100 mg PO DAILY [facility] Last Admin: 05/06/18 12:28 Dose: 100 mg Donepezil HCl (Aricept -) 10 mg PO HS [facility] Last Admin: 05/06/18 21:41 Dose: 10 mg Doxycycline Hyclate (Vibramycin -) 100 mg PO BID@1000,1800 [facility] Last Admin: 05/06/18 17:43 Dose: 100 mg Epoetin Judson (Procrit -) 6,000 unit IVPUSH WD ONE Stop: 05/07/18 10:31 Heparin Sodium (Porcine) (Heparin -) 1,000 unit IVPUSH PRN PRN PRN Reason: Heparin Heparin Sodium (Porcine) (Heparin -) 5,000 unit IVPUSH PRN PRN PRN Reason: Heparin Last Admin: 05/04/18 21:00 Dose: 5,000 unit Hydralazine HCl (Apresoline -) 50 mg PO TID [facility] Last Admin: 05/07/18 05:13 Dose: Not Given Ceftriaxone Sodium 1 gm/ (Dextrose) 50 mls @ 100 mls/hr IVPB DAILY [facility]; Protocol Last Admin: 05/06/18 09:26 Dose: 100 mls/hr HEPARIN SOD,PORK IN 0.45% NACL (Heparin-1/2ns 25,000 Units/500) 25,000 units in 500 mls @ 16 mls/hr IVPB TITR [facility]; Protocol Last Admin: 05/07/18 01:00 Dose: 1,300 unit/hr, 26 mls/hr Sodium Chloride (Normal Saline -) 250 mls @ 3,000 mls/hr IV PRN PRN PRN Reason: Hypotension during Dialysis Stop: 05/07/18 15:36 Isosorbide Mononitrate (Imdur -) 60 mg PO DAILY [facility] Last Admin: 05/06/18 09:25 Dose: 60 mg Lidocaine (Lidoderm Patch -) 1 patch TP DAILY [facility] Last Admin: 05/07/18 09:46 Dose: 1 patch Lidocaine HCl (Xylocaine 2% Viscous Oral -) 20 ml MM Q6H PRN PRN Reason: ORAL PAIN/MOUTH SORES Metoprolol Tartrate (Lopressor Injection -) 5 mg IVPUSH Q4H PRN PRN Reason: HYPERTENSION Miscellaneous (Lidoderm Patch Removal) 1 each MC DAILY@2200 [facility] Last Admin: 05/06/18 21:41 Dose: Not Given Pantoprazole Sodium (Protonix -) 20 mg PO DAILY [facility] Last Admin: 05/06/18 09:25 Dose: 20 mg Polyethylene Glycol (Miralax (For Daily Use) -) 17 gm PO DAILY [facility] Last Admin: 05/06/18 12:28 Dose: Not Given Sacubitril/Valsartan (Entresto 97 Mg-103 Mg Tablet) 1 tab PO BID [facility] Last Admin: 05/06/18 21:41 Dose: 1 tab Tamsulosin HCl (Flomax -) 0.4 mg PO DAILY@0830 [facility] Last Admin: 05/06/18 09:25 Dose: 0.4 mg Warfarin Sodium (Coumadin -) 6 mg PO DAILY@1800 [facility] Last Admin: 05/06/18 17:43 Dose: 6 mg - Objective Vital Signs: Vital Signs Temperature 98.7 F 05/07/18 09:00 Pulse Rate 92 H 05/07/18 09:00 Respiratory Rate 16 05/07/18 09:00 Blood Pressure 142/78 05/07/18 09:00 O2 Sat by Pulse Oximetry (%) 98 05/06/18 22:00 Neck: Yes: Supple Cardiovascular: Yes: Regular Rate and Rhythm, S1, S2 Respiratory: Yes: CTA Bilaterally Gastrointestinal: Yes: Normal Bowel Sounds, Soft. No: Tenderness Edema: No Labs: 05/07/18 05:30 INR, PTT INR 2.30 (0.82-1.09) H D 05/07/18 05:30 Problem List - Problems (1) Acute on chronic systolic (congestive) heart failure Code(s): I50.23 - ACUTE ON CHRONIC SYSTOLIC (CONGESTIVE) HEART FAILURE (2) End stage renal disease Code(s): N18.6 - END STAGE RENAL DISEASE (3) Hyperlipidemia Code(s): E78.5 - HYPERLIPIDEMIA, UNSPECIFIED Qualifiers: Hyperlipidemia type: pure hypercholesterolemia Qualified Code(s): E78.00 - Pure hypercholesterolemia, unspecified; E78.0 - Pure hypercholesterolemia (4) Hypertensive cardiomyopathy Code(s): I11.9 - HYPERTENSIVE HEART DISEASE WITHOUT HEART FAILURE; I43 - CARDIOMYOPATHY IN DISEASES CLASSIFIED ELSEWHERE Qualifiers: Heart failure presence: with heart failure Qualified Code(s): I11.0 - Hypertensive heart disease with heart failure; I43 - Cardiomyopathy in diseases classified elsewhere (5) Ischemic cardiomyopathy Code(s): I25.5 - ISCHEMIC CARDIOMYOPATHY (6) CAD (coronary artery disease) Code(s): I25.10 - ATHSCL HEART DISEASE OF [place] CORONARY ARTERY W/O ANG PCTRS Qualifiers: Coronary Disease-Associated Artery/Lesion type: [place] artery [place] vs. transplanted heart: [place] heart Associated angina: without angina Qualified Code(s): I25.10 - Atherosclerotic heart disease of [place] coronary artery without angina pectoris Assessment/Plan 1. Acute on chronic diastolic/systolic failure and pulmonary edema 2. Hypertensive urgency 3. Post acute hypoxic respiratory failure 4. CAD s/p NV, demand ischemic injury 5. Ischemic cardiomyopathy 6. Acute on Chronic Renal Failure requiring HD 7. Paroxysmal atrial fibrillation currently in sinus rhythm 8. Resolved Altered Mental Status r/o Hypertensive vs Uremic Encephalopathy 9. Anemia 10. Pneumonia PLAN: 1. Volume removal via UF/HD at the discretion of renal service and as needed 2. Continue Carvedilol 25 bid, Hydralazine 50 tid and Imdur 60 qd. Continue Lipitor 80 qd and Entresto 3. Continue Coumadin per INR when ready 4. Antibiotics 5. Patient is to see Dr. Jeannette Kaiser at [facility] upon discharge for further cardiac care Further plans are to follow Johnathan Claros MD
[2018-05-07] MEDS ORDERED: EPOETIN ALFA 3,000 UNIT/1 ML ML IVPUSH ONE (10:30)
--- NOTE | 2018-05-07 13:43 | PN ---
Teaching Attending Note Name of Resident: Hannah Mills ATTENDING PHYSICIAN STATEMENT I saw and evaluated the patient. I reviewed the resident's note and discussed the case with the resident. I agree with the resident's findings and plan as documented. SUBJECTIVE:c/o episode of CP this AM lasted 20 minutes then resolved wiht placing his oxygen back on his face as he did not relize it was off his face. no repeat episodes. denies SOB, fever, chills, cough, CP radiating to the jaw or arm. no melena, BRBPR, hematuria or dysuria OBJECTIVE: Last Vital Signs Temp Pulse Resp BP Pulse Ox 98.8 F 78 18 163/89 98 05/07/18 10:10 05/07/18 13:20 05/07/18 13:20 05/07/18 13:20 05/06/18 22:00 General NAD CV S1 S2 irregular no chest wall tenderness Lungs CTA B/L no wheezing/rales/rhonchi Abdomen soft NT/ND +LIJ permacath ASSESSMENT AND PLAN: 62yo M with PMH CKD (has refused HD in the past), and CAD presenting with progressively worsening shortness of breath and altered mental status. in the ER was found to have SBP 240. code larkin was activated in the ER 1. CP- likely due to hypoxia vs anemia. no events on monitor. CP now resolved. will transfuse 1 unit PRBC. supplemental oxygen not documented at that time but currently 98% on 2L NC 2. Permacath pain- likely due to recent placement. now resolved. currently tolerating HD 3. ACute toxic/metabolic encephalopathy-due to uremia and HTN crisis. now at baseline. 4. acute hypoxic respiratory failure- due to early ARDS with poor mental state. intubated and now extubated. saturating well on RA 5. HTN crisis-improved. cont current regimen. 6. Sepsis due to strep bacteremia- clinically improved. repeat BCx negative. abx switched to ceftriaxone and doxy po. day 10 of total abx. will d/w ID about duration. ID on board. 7. Afib wiht RVR-rate improved. INR now therapeutic. d/c heprin ggt due to sudden anemia. will trend counts. consider holding coumadin tonight. daily INR 8. hyperphosphatemia- due to renal failure- now resolved. on phoslo 9. acute on CKD stage V now on HD-s/P LI permacath for HD. HD per normal schedule. will need outpatient HD arranged. Cont HD per nephro 10. L knee swelling- reports as improved. seen by ortho. likely hematoma no intervention at this time 11. dysuria- UA negative for infection 12. Elevated troponin- likely demand ischemia. can have further ischemia workup as outpatient 13. combination of iron def anemia and of chronic disease- acute drop in Hgb. CP could be related to mild hypoxia vs anemia. will transfuse 1 unit PRBC. repeat cbc. check FOBT. never had a colonscopy. 14. dementia- on aricept 15. DVT ppx- therpaeutic INR 16. agreeable to SNF placement once medically optimized
[2018-05-07] MEDS: ISOSORBIDE MONONITRATE 60 MG TAB.SR.24H (FP) PO SCH (14:04)
[2018-05-07] MEDS: DOCUSATE SODIUM 100 MG CAPSULE (FP) PO SCH (14:04)
[2018-05-07] MEDS: CEFTRIAXONE 1 GM in DEXTROSE 5%-WATER - 50 ML IVPB SCH (14:04)
[2018-05-07] MEDS: PANTOPRAZOLE 20 MG TABLET (FP) PO SCH (14:04)
[2018-05-07] MEDS: TAMSULOSIN HCL 0.4 MG CAP.ER.24H (FP) PO SCH (14:04)
[2018-05-07] MEDS: POLYETHYLENE GLYCOL 3350 119 GM BTL PO SCH (14:05)
[2018-05-07] MEDS: DOXYCYCLINE HYCLATE 100 MG CAPSULE PO SCH ×2 (14:05→18:19)
[2018-05-07] MEDS: CARVEDILOL 25 MG TABLET (FP) PO SCH ×2 (14:07→21:51)
[2018-05-07] MEDS: SACUBITRIL/VALSARTAN 97 MG-103 MG TABLET PO SCH ×2 (14:08→21:51)
[2018-05-07 14:52] LABS: HEMATOCRIT 30.4 % (35.4-49); HEMOGLOBIN 9.9 GM/dL (11.7-16.9); MCH 28.1 pg (25.7-33.7); MCHC 32.5 g/dl (32.0-35.9); MEAN CELL VOLUME 86.6 fl (80-96); MEAN PLT VOLUME 8.4 fl (7.5-11.1); PLATELET COUNT 355 K/MM3 (134-434); RBC 3.51 M/mm3 (4.00-5.60); RDW 17.3 % (11.9-15.9); WHITE BLOOD COUNT 9.1 K/mm3 (4.0-10.0)
--- NOTE | 2018-05-07 15:48 | PN ---
Progress Note, Physician History of Present Illness: patient stable no complaints doing well - Current Medication List Current Medications: Active Medications Acetaminophen (Tylenol -) 650 mg PO Q6H PRN PRN Reason: PAIN Last Admin: 05/06/18 21:39 Dose: 650 mg Atorvastatin Calcium (Lipitor -) 80 mg PO HS [facility] Last Admin: 05/06/18 21:40 Dose: 80 mg Calcium Acetate (Phoslo -) 1,334 mg PO TIDCM [facility] Last Admin: 05/07/18 14:04 Dose: 1,334 mg Carvedilol (Coreg -) 25 mg PO BID [facility] Last Admin: 05/07/18 14:07 Dose: 25 mg Docusate Sodium (Colace -) 100 mg PO DAILY [facility] Last Admin: 05/07/18 14:04 Dose: 100 mg Donepezil HCl (Aricept -) 10 mg PO [facility] Last Admin: 05/06/18 21:41 Dose: 10 mg Doxycycline Hyclate (Vibramycin -) 100 mg PO BID@1000,1800 [facility] Last Admin: 05/07/18 14:05 Dose: 100 mg Hydralazine HCl (Apresoline -) 50 mg PO TID [facility] Last Admin: 05/07/18 14:06 Dose: 50 mg Ceftriaxone Sodium 1 gm/ (Dextrose) 50 mls @ 100 mls/hr IVPB DAILY [facility]; Protocol Last Admin: 05/07/18 14:04 Dose: 100 mls/hr Sodium Chloride (Normal Saline -) 250 mls @ 3,000 mls/hr IV PRN PRN PRN Reason: Hypotension during Dialysis Stop: 05/07/18 15:36 Isosorbide Mononitrate (Imdur -) 60 mg PO DAILY [facility] Last Admin: 05/07/18 14:04 Dose: 60 mg Lidocaine (Lidoderm Patch -) 1 patch TP DAILY [facility] Last Admin: 05/07/18 09:46 Dose: 1 patch Lidocaine HCl (Xylocaine 2% Viscous Oral -) 20 ml MM Q6H PRN PRN Reason: ORAL PAIN/MOUTH SORES Metoprolol Tartrate (Lopressor Injection -) 5 mg IVPUSH Q4H PRN PRN Reason: HYPERTENSION Miscellaneous (Lidoderm Patch Removal) 1 each MC DAILY@2200 [facility] Last Admin: 05/06/18 21:41 Dose: Not Given Pantoprazole Sodium (Protonix -) 20 mg PO DAILY [facility] Last Admin: 05/07/18 14:04 Dose: 20 mg Polyethylene Glycol (Miralax (For Daily Use) -) 17 gm PO DAILY [facility] Last Admin: 05/07/18 14:05 Dose: Not Given Sacubitril/Valsartan (Entresto 97 Mg-103 Mg Tablet) 1 tab PO BID [facility] Last Admin: 05/07/18 14:08 Dose: 1 tab Tamsulosin HCl (Flomax -) 0.4 mg PO DAILY@0830 [facility] Last Admin: 05/07/18 14:04 Dose: 0.4 mg Warfarin Sodium (Coumadin -) 6 mg PO DAILY@1800 [facility] Last Admin: 05/06/18 17:43 Dose: 6 mg - Objective Vital Signs: Vital Signs Temperature 99.3 F 05/07/18 14:20 Pulse Rate 82 05/07/18 14:20 Respiratory Rate 18 05/07/18 14:20 Blood Pressure 152/82 05/07/18 14:20 O2 Sat by Pulse Oximetry (%) 98 05/07/18 09:00 Constitutional: Yes: No Distress, Calm Neck: Yes: Supple Cardiovascular: Yes: Regular Rate and Rhythm Respiratory: Yes: Regular, On Nasal O2, Poor Air Entry Gastrointestinal: Yes: Normal Bowel Sounds, Soft Musculoskeletal: Yes: WNL Extremities: Yes: WNL Neurological: Yes: Alert, Oriented Psychiatric: Yes: Alert, Oriented Labs: CBC, BMP 05/07/18 14:20 05/05/18 06:00 INR, PTT INR 2.30 (0.82-1.09) H D 05/07/18 05:30 Assessment/Plan Problem List - Problems (1) Acute on chronic systolic (congestive) heart failure Code(s): I50.23 - ACUTE ON CHRONIC SYSTOLIC (CONGESTIVE) HEART FAILURE (2) CAD (coronary artery disease) Code(s): I25.10 - ATHSCL HEART DISEASE OF [place] CORONARY ARTERY W/O ANG PCTRS Qualifiers: Coronary Disease-Associated Artery/Lesion type: [place] artery [place] vs. transplanted heart: [place] heart Associated angina: without angina Qualified Code(s): I25.10 - Atherosclerotic heart disease of [place] coronary artery without angina pectoris (3) End stage renal disease Code(s): N18.6 - END STAGE RENAL DISEASE (4) Hyperlipidemia Code(s): E78.5 - HYPERLIPIDEMIA, UNSPECIFIED Qualifiers: Hyperlipidemia type: pure hypercholesterolemia Qualified Code(s): E78.00 - Pure hypercholesterolemia, unspecified; E78.0 - Pure hypercholesterolemia (5) Hypertensive cardiomyopathy Code(s): I11.9 - HYPERTENSIVE HEART DISEASE WITHOUT HEART FAILURE; I43 - CARDIOMYOPATHY IN DISEASES CLASSIFIED ELSEWHERE Qualifiers: Heart failure presence: with heart failure Qualified Code(s): I11.0 - Hypertensive heart disease with heart failure; I43 - Cardiomyopathy in diseases classified elsewhere (6) Ischemic cardiomyopathy Code(s): I25.5 - ISCHEMIC CARDIOMYOPATHY (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 male admitted with SOB/Acute respiratory failure, Pulmonary congestion, Fever, with Femoral catheter in place Sepsis PNA - Klebsiella/MRSA Streptococcal bacteremia Persistent Fever Lt knee pain/mild swelling Renal Failure - now on HD CHF/Pulm edema Hypertensive urgency CAD s/p [place] s/p hypoxic resp failure plan continue current abx patient improving incentive caleb rest as per the team total course of 2 weeks
--- NOTE | 2018-05-07 18:01 | PN ---
Progress Note (short form) - Note Progress Note: patient reports passing loose stool earlier today. States that he was transfused one unit of packed cell. Denies chest pain of shortness of breath. Vitals: Vital Signs (72 hours) 05/04/18 05/04/18 05/05/18 21:00 22:00 02:00 Temperature 99.4 F 99.0 F Pulse Rate 85 83 Respiratory 20 20 20 Rate Blood Pressure 146/71 127/67 O2 Sat by Pulse 100 100 Oximetry (%) 05/05/18 05/05/18 05/05/18 05:00 05:21 10:00 Temperature 99.4 F 99 F 99 F Pulse Rate 99 H 82 74 Respiratory 18 20 16 Rate Blood Pressure 152/66 152/60 130/52 O2 Sat by Pulse Oximetry (%) 05/05/18 05/05/18 05/05/18 14:05 20:52 22:00 Temperature 99.2 F 99 F Pulse Rate 78 77 Respiratory 18 18 18 Rate Blood Pressure 132/89 134/64 O2 Sat by Pulse 100 98 Oximetry (%) 05/06/18 05/06/18 05/06/18 02:00 05:22 09:00 Temperature 98.2 F 98.8 F 98.7 F Pulse Rate 69 89 76 Respiratory 20 20 20 Rate Blood Pressure 120/56 118/51 133/66 O2 Sat by Pulse 98 Oximetry (%) 05/06/18 05/06/18 05/06/18 14:25 17:00 20:32 Temperature 98.9 F 98.7 F Pulse Rate 67 87 Respiratory 20 20 20 Rate Blood Pressure 110/56 139/67 O2 Sat by Pulse 98 Oximetry (%) 05/06/18 05/06/18 05/07/18 20:40 22:00 02:25 Temperature 98.8 F 98.0 F Pulse Rate 81 81 Respiratory 20 20 Rate Blood Pressure 138/48 139/48 O2 Sat by Pulse 98 Oximetry (%) 05/07/18 05/07/18 05/07/18 04:53 09:00 10:10 Temperature 98.8 F 98.7 F 98.8 F Pulse Rate 90 92 H 80 Respiratory 20 18 18 Rate Blood Pressure 126/58 142/78 150/79 O2 Sat by Pulse 98 Oximetry (%) 05/07/18 05/07/18 05/07/18 10:15 10:45 11:15 Temperature Pulse Rate 72 79 81 Respiratory 18 18 18 Rate Blood Pressure 135/75 143/82 148/79 O2 Sat by Pulse Oximetry (%) 05/07/18 05/07/18 05/07/18 11:45 12:15 12:45 Temperature Pulse Rate 79 81 79 Respiratory 18 18 18 Rate Blood Pressure 150/85 156/75 167/91 O2 Sat by Pulse Oximetry (%) 05/07/18 05/07/18 05/07/18 13:15 13:20 14:20 Temperature 99.3 F Pulse Rate 77 78 82 Respiratory 18 18 18 Rate Blood Pressure 161/90 163/89 152/82 O2 Sat by Pulse Oximetry (%) Lungs; coarse breath sound in both lung rangel Heart: S1 S2 irregular Abd: Full, soft, non-tender Ext:No edema Access: positive left chest wall hemocath. Lab: CBCD WBC 9.1 K/mm3 (4.0-10.0) 05/07/18 14:20 RBC 3.51 M/mm3 (4.00-5.60) L 05/07/18 14:20 Hgb 9.9 GM/dL (11.7-16.9) L 05/07/18 14:20 Hct 30.4 % (35.4-49) L D 05/07/18 14:20 MCV 86.6 fl (80-96) 05/07/18 14:20 MCHC 32.5 g/dl (32.0-35.9) 05/07/18 14:20 RDW 17.3 % (11.9-15.9) H 05/07/18 14:20 Plt Count 355 K/MM3 (134-434) 05/07/18 14:20 MPV 8.4 fl (7.5-11.1) 05/07/18 14:20 CMP Sodium 139 mmol/L (136-145) 05/05/18 06:00 Potassium 3.8 mmol/L (3.5-5.1) 05/05/18 06:00 Chloride 101 mmol/L (98-107) 05/05/18 06:00 Carbon Dioxide 31 mmol/L (21-32) 05/05/18 06:00 Anion Gap 7 (8-16) L 05/05/18 06:00 BUN 41 mg/dL (7-18) H 05/05/18 06:00 Creatinine 6.0 mg/dL (0.7-1.3) H 05/05/18 06:00 Creat Clearance w eGFR 9.55 (>60) 05/05/18 06:00 Calcium 8.3 mg/dL (8.5-10.1) L 05/05/18 06:00 Total Bilirubin 0.3 mg/dL (0.2-1.0) 05/05/18 06:00 AST 20 U/L (15-37) 05/05/18 06:00 ALT 27 U/L (12-78) 05/05/18 06:00 Alkaline Phosphatase 113 U/L (45-117) 05/05/18 06:00 Total Protein 5.7 g/dl (6.4-8.2) L 05/05/18 06:00 Albumin 1.9 g/dl (3.4-5.0) L 05/05/18 06:00 A/P; 62 year old man admitted with pulmnary edema, hypertensive crisis and uremia. Patient is toleratin hemodialysis as prescribed. Send stool for C.Diff evaluation. Will follow. Physical therapy to assist with ambulation. Problem List - Problems (1) Acute on chronic systolic (congestive) heart failure Code(s): I50.23 - ACUTE ON CHRONIC SYSTOLIC (CONGESTIVE) HEART FAILURE (2) End stage renal disease Code(s): N18.6 - END STAGE RENAL DISEASE (3) Hypertensive cardiomyopathy Code(s): I11.9 - HYPERTENSIVE HEART DISEASE WITHOUT HEART FAILURE; I43 - CARDIOMYOPATHY IN DISEASES CLASSIFIED ELSEWHERE Qualifiers: Heart failure presence: with heart failure Qualified Code(s): I11.0 - Hypertensive heart disease with heart failure; I43 - Cardiomyopathy in diseases classified elsewhere
[2018-05-07] MEDS: WARFARIN NA 3 MG TABLET PO SCH (18:18)
--- NOTE | 2018-05-07 19:49 | PN ---
Physical Exam: SUBJECTIVE: Patient seen and examined at bedside. Patient had an isolated 20 minute episode of chest pain this morning that he says was due to not wearing his nasal cannula. Pain remained midsternal, did not radiate down his arm, up to this jaw or to his back. Denies any accompanying diaphoresis or SOB. No other overnight acute events as per nursing. Denies Fevers, chills, nausea, vomiting. OBJECTIVE: Vital Signs Period Temp Pulse Resp BP Sys/Wyatt Pulse Ox Last 24 Hr 98.0 F-99.3 F 72-98 16-20 126-167/48-91 98-98 Vital Signs Temp 98.8 F 05/07/18 17:00 Pulse 98 H 05/07/18 17:00 Resp 18 05/07/18 17:00 BP 145/75 05/07/18 17:00 Pulse Ox 98 05/07/18 09:00 Intake & Output 05/06/18 05/07/18 05/07/18 23:59 11:59 23:59 Intake Total 474 50 450 Output Total 200 100 Balance 274 -50 450 Weight 65.136 kg Intake: IV 274 HEPARIN-1/2NS 25,000 224 UNITS/500 25,000 units In 500 ml @ 800 UNIT/HR 16 mls/hr IVPB TITR [facility] Rx#: [id number] saline lock 50 IVPB 100 Oral 200 50 Packed Cells 350 Output: Urine 200 100 Void 200 100 Other: Voiding Method Urinal Urinal Urinal Bowel Movement Yes Yes # Bowel Movements 1 Weight Measurement Method Standing Scale GENERAL: The patient is awake, alert, and fully oriented, in no acute distress. LUNGS: Breath sounds equal, clear to auscultation bilaterally, no wheezes, no crackles HEART: irregular rate and rhythm, S1, S2 without murmur, rub or gallop. CHEST: No tenderness, permacath present ABDOMEN: Soft, nontender, nondistended, normoactive bowel sounds Laboratory Results - last 24 hr 05/07/18 05/07/18 05/07/18 05:30 05:30 06:30 WBC 11.1 H RBC 2.78 L Hgb 7.7 L Hct 24.1 L D MCV 86.6 MCH 27.8 MCHC 32.1 RDW 18.1 H Plt Count 356 MPV 8.8 Absolute Neuts (auto) 8.6 Neutrophils % 77.3 Lymphocytes % 10.5 D Monocytes % 7.0 Eosinophils % 2.9 Basophils % 2.3 H Nucleated RBC % 0 PT with INR 26.00 H INR 2.30 H D PTT (Actin FS) 86.6 H Blood Type Antibody Screen Crossmatch 05/07/18 05/07/18 10:15 14:20 WBC 9.1 RBC 3.51 L Hgb 9.9 L Hct 30.4 L D MCV 86.6 MCH 28.1 MCHC 32.5 RDW 17.3 H Plt Count 355 MPV 8.4 Absolute Neuts (auto) Neutrophils % Lymphocytes % Monocytes % Eosinophils % Basophils % Nucleated RBC % PT with INR INR PTT (Actin FS) Blood Type O POSITIVE Antibody Screen Negative Crossmatch See Detail Active Medications Acetaminophen (Tylenol -) 650 mg PO Q6H PRN PRN Reason: PAIN Last Admin: 05/06/18 21:39 Dose: 650 mg Atorvastatin Calcium (Lipitor -) 80 mg PO HS [facility] Last Admin: 05/06/18 21:40 Dose: 80 mg Calcium Acetate (Phoslo -) 1,334 mg PO TIDCM [facility] Last Admin: 05/07/18 18:18 Dose: 1,334 mg Carvedilol (Coreg -) 25 mg PO BID [facility] Last Admin: 05/07/18 14:07 Dose: 25 mg Docusate Sodium (Colace -) 100 mg PO DAILY [facility] Last Admin: 05/07/18 14:04 Dose: 100 mg Donepezil HCl (Aricept -) 10 mg PO HS [facility] Last Admin: 05/06/18 21:41 Dose: 10 mg Doxycycline Hyclate (Vibramycin -) 100 mg PO BID@1000,1800 [facility] Last Admin: 05/07/18 18:19 Dose: 100 mg Hydralazine HCl (Apresoline -) 50 mg PO TID [facility] Last Admin: 05/07/18 14:06 Dose: 50 mg Ceftriaxone Sodium 1 gm/ (Dextrose) 50 mls @ 100 mls/hr IVPB DAILY [facility]; Protocol Last Admin: 05/07/18 14:04 Dose: 100 mls/hr Sodium Chloride (Normal Saline -) 250 mls @ 3,000 mls/hr IV PRN PRN PRN Reason: Hypotension during Dialysis Stop: 05/07/18 15:36 Isosorbide Mononitrate (Imdur -) 60 mg PO DAILY [facility] Last Admin: 05/07/18 14:04 Dose: 60 mg Lidocaine (Lidoderm Patch -) 1 patch TP DAILY [facility] Last Admin: 05/07/18 09:46 Dose: 1 patch Lidocaine HCl (Xylocaine 2% Viscous Oral -) 20 ml MM Q6H PRN PRN Reason: ORAL PAIN/MOUTH SORES Metoprolol Tartrate (Lopressor Injection -) 5 mg IVPUSH Q4H PRN PRN Reason: HYPERTENSION Miscellaneous (Lidoderm Patch Removal) 1 each MC DAILY@2200 [facility] Last Admin: 05/06/18 21:41 Dose: Not Given Pantoprazole Sodium (Protonix -) 20 mg PO DAILY [facility] Last Admin: 05/07/18 14:04 Dose: 20 mg Polyethylene Glycol (Miralax (For Daily Use) -) 17 gm PO DAILY [facility] Last Admin: 05/07/18 14:05 Dose: Not Given Sacubitril/Valsartan (Entresto 97 Mg-103 Mg Tablet) 1 tab PO BID [facility] Last Admin: 05/07/18 14:08 Dose: 1 tab Tamsulosin HCl (Flomax -) 0.4 mg PO DAILY@0830 [facility] Last Admin: 05/07/18 14:04 Dose: 0.4 mg Warfarin Sodium (Coumadin -) 6 mg PO DAILY@1800 [facility] Last Admin: 05/07/18 18:18 Dose: 6 mg ASSESSMENT/PLAN: 62 y/o M with PMHx of CKD who had refused HD in the past, and CAD presenting with worsening SOB and AMS. On initial evaluation in the ED, he was found to have SBP 240. Code larkin was activated in the ER 1. Chest Pain - Possibly due to Hypoxia, resolved when nasal canula was placed properly - Possibly due to Anemia, Hgb was 7.7 on morning CBC - 1 unit PRBC was transfused and repeat Hgb was 9.9 2. Acute toxic/metabolic encephalopathy - Due to uremia and HTN crisis - Now at baseline 3. Acute hypoxic respiratory failure - Due to early ARDS with poor mental state - Patient was intubated and now extubated - Saturating well on RA 4. HTN crisis - BP has remained below 140/90 - Continue current regimen 5. Sepsis due to strep bacteremia - clinically improved - repeat BCx: No growth after 5 days - Continue IV Ceftriaxone (Day 10 of total abx) - COntinue PO Doxycycline (Day 10 of total abx) - Consult ID, appreciate recommendations 6. Afib with RVR - rate improved - INR now therapeutic at 2.30 - Continue Coumadin 6mg - Discontinue heparin ggt as patients Hgb Dropped - Ordered daily INR 7. hyperphosphatemia - due to renal failure - Resolved - Continue Phoslo 1,334 mg PO TIDCM [facility] 8. Acute on CKD - Stage V now on HD - S/P [facility] permacath for HD - HD per normal schedule, will need outpatient HD arranged 9. L knee swelling - Improved - Ortho consulted - likely hematoma no intervention at this time 10. Dysuria - UA negative for infection 11. Elevated troponin - likely demand ischemia - can have further ischemia workup as outpatient 12. Combination of iron def anemia and of chronic disease - Hgb this morning dropped to 7.7 - 1 unit PRBC was transfused and repeat Hgb was 9.9 - Serial 3 FOBT Ordered - Will recommend colonoscopy as an outpatient 13. dementia - on aricept 14. DVT ppx - hep ggt 15. [facility] permacath pain - likely due to recent placement and surrounding inflammation - improved on Tylenol prn Dispo: Possible discharge tomorrow Visit type - Emergency Visit Emergency Visit: No - New Patient This patient is new to me today: No - Critical Care Critical Care patient: No
[2018-05-07] MEDS: LIDOCAINE PATCH REMOVAL MC SCH (21:51)
[2018-05-07] MEDS: DONEPEZIL HCL 10 MG TABLET (FP) PO SCH (21:51)
[2018-05-07] MEDS: ATORVASTATIN CA 80 MG TABLET (FP) PO SCH (21:51)
[2018-05-08] MEDS: hydrALAZINE HCL 50 MG TABLET (FP) PO SCH ×3 (06:15→21:54)
[2018-05-08 06:27] LABS: HEMATOCRIT 28.6 % (35.4-49); HEMOGLOBIN 9.3 GM/dL (11.7-16.9); MCH 28.4 pg (25.7-33.7); MCHC 32.5 g/dl (32.0-35.9); MEAN CELL VOLUME 87.5 fl (80-96); MEAN PLT VOLUME 8.6 fl (7.5-11.1); PLATELET COUNT 323 K/MM3 (134-434); RBC 3.27 M/mm3 (4.00-5.60); RDW 17.6 % (11.9-15.9)
--- NOTE | 2018-05-08 08:00 | PN ---
Progress Note (short form) - Note Progress Note: Chief Complaint: Events noted, notes reviewed, denies any chest pain bur reports dyspnea although improved History of Present Illness: Seen and examined on telemetry. Events noted, notes reviewed, denies any chest pain bur reports dyspnea although improved - Current Medication List Current Medications: Active Medications Current Medications Acetaminophen (Tylenol -) 650 mg PO Q6H PRN PRN Reason: PAIN Last Admin: 05/06/18 21:39 Dose: 650 mg Atorvastatin Calcium (Lipitor -) 80 mg PO HS [facility] Last Admin: 05/07/18 21:51 Dose: 80 mg Calcium Acetate (Phoslo -) 1,334 mg PO TIDCM [facility] Last Admin: 05/07/18 18:18 Dose: 1,334 mg Carvedilol (Coreg -) 25 mg PO BID [facility] Last Admin: 05/07/18 21:51 Dose: 25 mg Docusate Sodium (Colace -) 100 mg PO DAILY [facility] Last Admin: 05/07/18 14:04 Dose: 100 mg Donepezil HCl (Aricept -) 10 mg PO [facility] Last Admin: 05/07/18 21:51 Dose: 10 mg Doxycycline Hyclate (Vibramycin -) 100 mg PO BID@1000,1800 [facility] Last Admin: 05/07/18 18:19 Dose: 100 mg Hydralazine HCl (Apresoline -) 50 mg PO TID [facility] Last Admin: 05/08/18 06:15 Dose: 50 mg Ceftriaxone Sodium 1 gm/ (Dextrose) 50 mls @ 100 mls/hr IVPB DAILY [facility]; Protocol Last Admin: 05/07/18 14:04 Dose: 100 mls/hr Sodium Chloride (Normal Saline -) 250 mls @ 3,000 mls/hr IV PRN PRN PRN Reason: Hypotension during Dialysis Stop: 05/07/18 15:36 Isosorbide Mononitrate (Imdur -) 60 mg PO DAILY [facility] Last Admin: 05/07/18 14:04 Dose: 60 mg Lidocaine (Lidoderm Patch -) 1 patch TP DAILY [facility] Last Admin: 05/07/18 09:46 Dose: 1 patch Lidocaine HCl (Xylocaine 2% Viscous Oral -) 20 ml MM Q6H PRN PRN Reason: ORAL PAIN/MOUTH SORES Metoprolol Tartrate (Lopressor Injection -) 5 mg IVPUSH Q4H PRN PRN Reason: HYPERTENSION Miscellaneous (Lidoderm Patch Removal) 1 each MC DAILY@2200 [facility] Last Admin: 05/07/18 21:51 Dose: Not Given Pantoprazole Sodium (Protonix -) 20 mg PO DAILY [facility] Last Admin: 05/07/18 14:04 Dose: 20 mg Polyethylene Glycol (Miralax (For Daily Use) -) 17 gm PO DAILY [facility] Last Admin: 05/07/18 14:05 Dose: Not Given Sacubitril/Valsartan (Entresto 97 Mg-103 Mg Tablet) 1 tab PO BID [facility] Last Admin: 05/07/18 21:51 Dose: 1 tab Tamsulosin HCl (Flomax -) 0.4 mg PO DAILY@0830 [facility] Last Admin: 05/07/18 14:04 Dose: 0.4 mg Warfarin Sodium (Coumadin -) 6 mg PO DAILY@1800 [facility] Last Admin: 05/07/18 18:18 Dose: 6 mg - Review of Systems Constitutional: denies: Chills, Fever Cardiovascular: As noted above Respiratory: denies: Cough or Hemoptysis Gastrointestinal: denies: Abdominal Pain, Constipation, Diarrhea, Melena, Nausea , Rectal Bleeding, Vomiting Musculoskeletal: denies: Back Pain Neurological: denies: Unsteady Gait, Weakness. denies: Dizziness, Headache, Seizure, Syncope - Objective Vital Signs: Last Vital Signs Temp Pulse Resp BP Pulse Ox 98.8 F 88 20 149/69 100 05/08/18 06:00 05/08/18 06:00 05/08/18 06:00 05/08/18 06:00 05/07/18 21:00 Intake & Output 05/05/18 05/06/18 05/07/18 05/08/18 23:59 23:59 23:59 23:59 Intake Total 1044 798 860 Output Total 400 200 500 200 Balance 644 598 360 -200 Weight 130 lb 139 lb 12.8 oz 143 lb 9.6 oz 140 lb HEENT: Atraumatic Neck: Supple Negative JVD Cardiovascular: S1 S2 Regular Rate and Rhythm Respiratory: Diminished Breath Sounds at the Bases Gastrointestinal: Soft Benign Normal Bowel Sounds Ext: No Edema Labs: CBC, BMP 05/08/18 05:30 05/05/18 06:00 INR, PTT INR 2.30 (0.82-1.09) H D 05/07/18 05:30 Assessment/Plan 1. Acute on chronic class II-III NYHA classification systolic/diastolic LV failure with recurrent pulmonary edema, precipitated by hypertensive urgency, resolved 2. Hypertensive urgency, hypertensive cardiovascular disease 3. Post acute hypoxic respiratory failure 4. CAD post OR angina pectoris with evidence of demand ischemic injury 5. Ischemic dilated cardiomyopathy 6. Acute on Chronic Renal Failure requiring HD 7. Paroxysmal atrial fibrillation currently in sinus rhythm 8. Anemia 9. Altered mental status, resolved PLAN: 1. HD as per renal service 2. Continue Carvedilol 3. Continue Hydralazine and Imdur (BiDil as outpatient) 4. Continue Entresto 5. Continue Lipitor 6. Continue Coumadin as per INR with close monitoring of CBC 7. Patient can be transferred to floor care from the cardiovascular point of view 8. Patient is to F/U with Dr. Jeannette Kaiser/cardiology at [facility] upon discharge for further cardiac care Víctor Adams MD
--- NOTE | 2018-05-08 09:07 | PN ---
Progress Note, Physician History of Present Illness: patient stable no complaints doing well - Current Medication List Current Medications: Active Medications Acetaminophen (Tylenol -) 650 mg PO Q6H PRN PRN Reason: PAIN Last Admin: 05/06/18 21:39 Dose: 650 mg Atorvastatin Calcium (Lipitor -) 80 mg PO HS [facility] Last Admin: 05/07/18 21:51 Dose: 80 mg Calcium Acetate (Phoslo -) 1,334 mg PO TIDCM [facility] Last Admin: 05/07/18 18:18 Dose: 1,334 mg Carvedilol (Coreg -) 25 mg PO BID [facility] Last Admin: 05/07/18 21:51 Dose: 25 mg Docusate Sodium (Colace -) 100 mg PO DAILY [facility] Last Admin: 05/07/18 14:04 Dose: 100 mg Donepezil HCl (Aricept -) 10 mg PO HS [facility] Last Admin: 05/07/18 21:51 Dose: 10 mg Doxycycline Hyclate (Vibramycin -) 100 mg PO BID@1000,1800 [facility] Last Admin: 05/07/18 18:19 Dose: 100 mg Hydralazine HCl (Apresoline -) 50 mg PO TID [facility] Last Admin: 05/08/18 06:15 Dose: 50 mg Ceftriaxone Sodium 1 gm/ (Dextrose) 50 mls @ 100 mls/hr IVPB DAILY [facility]; Protocol Last Admin: 05/07/18 14:04 Dose: 100 mls/hr Sodium Chloride (Normal Saline -) 250 mls @ 3,000 mls/hr IV PRN PRN PRN Reason: Hypotension during Dialysis Stop: 05/07/18 15:36 Isosorbide Mononitrate (Imdur -) 60 mg PO DAILY [facility] Last Admin: 05/07/18 14:04 Dose: 60 mg Lidocaine (Lidoderm Patch -) 1 patch TP DAILY [facility] Last Admin: 05/07/18 09:46 Dose: 1 patch Lidocaine HCl (Xylocaine 2% Viscous Oral -) 20 ml MM Q6H PRN PRN Reason: ORAL PAIN/MOUTH SORES Metoprolol Tartrate (Lopressor Injection -) 5 mg IVPUSH Q4H PRN PRN Reason: HYPERTENSION Miscellaneous (Lidoderm Patch Removal) 1 each MC DAILY@2200 [facility] Last Admin: 05/07/18 21:51 Dose: Not Given Pantoprazole Sodium (Protonix -) 20 mg PO DAILY [facility] Last Admin: 05/07/18 14:04 Dose: 20 mg Polyethylene Glycol (Miralax (For Daily Use) -) 17 gm PO DAILY [facility] Last Admin: 05/07/18 14:05 Dose: Not Given Sacubitril/Valsartan (Entresto 97 Mg-103 Mg Tablet) 1 tab PO BID [facility] Last Admin: 05/07/18 21:51 Dose: 1 tab Tamsulosin HCl (Flomax -) 0.4 mg PO DAILY@0830 [facility] Last Admin: 05/07/18 14:04 Dose: 0.4 mg Warfarin Sodium (Coumadin -) 6 mg PO DAILY@1800 [facility] Last Admin: 05/07/18 18:18 Dose: 6 mg - Objective Vital Signs: Vital Signs Temperature 98.8 F 05/08/18 06:00 Pulse Rate 88 05/08/18 06:00 Respiratory Rate 20 05/08/18 06:00 Blood Pressure 149/69 05/08/18 06:00 O2 Sat by Pulse Oximetry (%) 100 05/07/18 21:00 Constitutional: Yes: No Distress, Calm Neck: Yes: Supple Cardiovascular: Yes: Regular Rate and Rhythm Respiratory: Yes: Regular, CTA Bilaterally Gastrointestinal: Yes: Normal Bowel Sounds, Soft Musculoskeletal: Yes: WNL Extremities: Yes: WNL Neurological: Yes: Alert, Oriented Psychiatric: Yes: Alert, Oriented Labs: CBC, BMP 05/08/18 05:30 05/05/18 06:00 INR, PTT INR 2.30 (0.82-1.09) H D 05/07/18 05:30 Assessment/Plan Problem List - Problems (1) Acute on chronic systolic (congestive) heart failure Code(s): I50.23 - ACUTE ON CHRONIC SYSTOLIC (CONGESTIVE) HEART FAILURE (2) CAD (coronary artery disease) Code(s): I25.10 - ATHSCL HEART DISEASE OF [place] CORONARY ARTERY W/O ANG PCTRS Qualifiers: Coronary Disease-Associated Artery/Lesion type: [place] artery [place] vs. transplanted heart: [place] heart Associated angina: without angina Qualified Code(s): I25.10 - Atherosclerotic heart disease of [place] coronary artery without angina pectoris (3) End stage renal disease Code(s): N18.6 - END STAGE RENAL DISEASE (4) Hyperlipidemia Code(s): E78.5 - HYPERLIPIDEMIA, UNSPECIFIED Qualifiers: Hyperlipidemia type: pure hypercholesterolemia Qualified Code(s): E78.00 - Pure hypercholesterolemia, unspecified; E78.0 - Pure hypercholesterolemia (5) Hypertensive cardiomyopathy Code(s): I11.9 - HYPERTENSIVE HEART DISEASE WITHOUT HEART FAILURE; I43 - CARDIOMYOPATHY IN DISEASES CLASSIFIED ELSEWHERE Qualifiers: Heart failure presence: with heart failure Qualified Code(s): I11.0 - Hypertensive heart disease with heart failure; I43 - Cardiomyopathy in diseases classified elsewhere (6) Ischemic cardiomyopathy Code(s): I25.5 - ISCHEMIC CARDIOMYOPATHY (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 male admitted with SOB/Acute respiratory failure, Pulmonary congestion, Fever, with Femoral catheter in place Sepsis PNA - Klebsiella/MRSA Streptococcal bacteremia Persistent Fever Lt knee pain/mild swelling Renal Failure - now on HD CHF/Pulm edema Hypertensive urgency CAD s/p UT s/p hypoxic resp failure plan continue current abx patient improving incentive caleb rest as per the team give ceftriaxone for a total of 2 weeks give doxy for a month
[2018-05-08] MEDS: CALCIUM ACETATE 667 MG CAPSULE (FP) PO SCH ×3 (09:19→16:34)
[2018-05-08] MEDS ORDERED: PT OWN MED DRAWER 7, Y5N ONE ×2 (09:48→22:10)
[2018-05-08] MEDS ORDERED: cefTRIAXone SODIUM 1 GM VIAL ONE (09:48)
[2018-05-08] MEDS ORDERED: DEXTROSE 5%-WATER - 50 ML IVPB ONE (09:48)
[2018-05-08] MEDS: DOXYCYCLINE HYCLATE 100 MG CAPSULE PO SCH (11:08)
[2018-05-08] MEDS: CEFTRIAXONE 1 GM in DEXTROSE 5%-WATER - 50 ML IVPB SCH (11:18)
[2018-05-08] MEDS: PANTOPRAZOLE 20 MG TABLET (FP) PO SCH (11:19)
[2018-05-08] MEDS: TAMSULOSIN HCL 0.4 MG CAP.ER.24H (FP) PO SCH (11:19)
[2018-05-08] MEDS: ISOSORBIDE MONONITRATE 60 MG TAB.SR.24H (FP) PO SCH (11:19)
[2018-05-08] MEDS: DOCUSATE SODIUM 100 MG CAPSULE (FP) PO SCH (11:19)
[2018-05-08] MEDS: CARVEDILOL 25 MG TABLET (FP) PO SCH ×2 (11:19→21:54)
[2018-05-08] MEDS: POLYETHYLENE GLYCOL 3350 119 GM BTL PO SCH (11:20)
[2018-05-08 12:41] LABS: INR 3.25 (0.82-1.09); PROTHROMBIN TIME (PATIENT) 36.7 SEC (9.7-13.0)
[2018-05-08] MEDS: LIDOCAINE 5% TOPICAL PATCH TP SCH (14:08)
[2018-05-08] MEDS: SACUBITRIL/VALSARTAN 97 MG-103 MG TABLET PO SCH ×2 (14:08→22:13)
--- NOTE | 2018-05-08 15:22 | CON.GI ---
Consult Consult Specialty:: GI: For Dr. Olvera Referred by:: Hospitalist service Reason for Consultation:: Anemia - History of Present Illness Chief Complaint: Anemia History of Present Illness: 62M initially admitted to [facility] 04/22 secondary to unresponsiveness at home. Treated for possible uremia and hypertensive emergency. prolonged admission. Noted to have Strep Constellatus bacteremia. Seen by nephrology, cardiology, neurology, infectious disease. States having had chest pain last night that improved with O2 supplementation. He was on heparin infusion while here, plavix and ASA at home. GI prophylaxis was started 05/03. was transfused 1 U PRBC yesterday. He denies any overt bleeding. There has been no melena. He denies any abdominal pain. He has never had an upper endoscopy or colonoscopy. There is no family history of colorectal cancer or other GI malignancy. - History Source History Provided By: Patient, Family Member ( present ), Medical Record - Past Medical History RN CHARGE: Yes: Dementia Cardio/Vascular: Yes: CAD, CHF, Hyperlipdemia, [place] (2 years ago per patient) Pulmonary: No: Asthma, Bronchitis, Cancer, COPD, O2 Dependent, Pneumonia, Previously Intubated, Pulmonary Embolus, Pulmonary Fibrosis, Sleep Apnea, Other Renal/: Yes: Renal Failure - Past Surgical History Additional Surgical History: Dialysis catheter placement - Alcohol/Substance Use Hx Alcohol Use: Yes (social in past) History of Substance Use: reports: None - Smoking History Smoking history: Former smoker Have you smoked in the past 12 months: No - Social History Usual Living Arrangement: With Spouse ADL: Independent Place of : Other (On License Of [facility]) Came to [place]year[place] 1987 History of Recent Travel: No Home Medications - Allergies Allergies/Adverse Reactions: Allergies Allergy/AdvReac Type Severity Reaction Status Date / Time No Known Allergies Allergy Verified 04/22/18 14:21 - Home Medications Home Medications: Ambulatory Orders Amlodipine Besylate [Norvasc -] 20 mg PO DAILY 04/22/18 Aspirin Coated [Ecotrin -] 81 mg PO DAILY 04/22/18 Carvedilol [Coreg -] 12.5 mg PO BID 04/22/18 Donepezil HCl [Aricept -] 10 mg PO DAILY 04/22/18 Hydralazine HCl 50 mg PO TID 04/22/18 Tamsulosin HCl [Flomax] 0.4 mg PO DAILY 04/22/18 Atorvastatin Calcium 80 mg PO DAILY 04/23/18 Calcium Acetate [Phoslo -] 667 mg PO TIDCM 04/23/18 Isosorbide Mononitrate [Isosorbide Mononitrate ER] 60 mg PO DAILY 04/23/18 Sodium Bicarbonate - 650 mg PO TID 04/23/18 Clopidogrel Bisulfate [Plavix] 75 mg PO DAILY 05/03/18 Cyproheptadine [Periactin -] 4 mg PO DAILY 05/03/18 Furosemide [Lasix] 40 mg PO DAILY 05/03/18 Family Disease History - Family Disease History Family Disease History: Other: Father (: 74: [place]), Mother (: 88: [place]), Sister (5, healthy) Other Family History: 4 healthy children. No family history of colorectal cancer or other GI malignancy Review of Systems - Review of Systems Constitutional: denies: Fever Cardiovascular: reports: Chest Pain Respiratory: reports: SOB. denies: Cough Gastrointestinal: reports: Diarrhea (yesterday, resolved). denies: Abdominal Pain, Melena, Nausea, Rectal Bleeding, Vomiting Physical Exam-GI Vital Signs: Vital Signs Temperature 99.5 F 05/08/18 09:00 Pulse Rate 74 05/08/18 09:00 Respiratory Rate 20 05/08/18 06:00 Blood Pressure 143/78 05/08/18 09:00 O2 Sat by Pulse Oximetry (%) 100 05/07/18 21:00 Constitutional: Yes: Calm Eyes: No: Sclera Icterus Cardiovascular: Yes: Regular Rate and Rhythm. No: Murmur Respiratory: Yes: CTA Bilaterally Gastrointestinal Inspection: No: Distention, Scars ...Auscultate: No: Normoactive Bowel Sounds ...Palpate: No: Hepatomegaly, Splenomegaly, Tenderness ...Percussion: No: Tympanitic ...Rectal Exam: Yes: Other (No external lesions, no masses, stool guaiac negative. No blood/melena. 2+ prostate) Edema: No (No LE edema) Neurological: Yes: Alert, Oriented Labs: CBC, BMP 05/08/18 05:30 05/05/18 06:00 INR, PTT INR 3.25 (0.82-1.09) H D 05/08/18 12:05 Hepatic Panel Total Bilirubin 0.3 mg/dL (0.2-1.0) 05/05/18 06:00 AST 20 U/L (15-37) 05/05/18 06:00 ALT 27 U/L (12-78) 05/05/18 06:00 Alkaline Phosphatase 113 U/L (45-117) 05/05/18 06:00 Albumin 1.9 g/dl (3.4-5.0) L 05/05/18 06:00 Laboratory Tests 05/02/18 05:30 Iron 53 TIBC 195 L Iron Saturation 27 Problem List - Problems (1) Anemia Assessment/Plan: Normocytic anemia, likely multifactorial but has never had EGD or colonoscopy and tracely guaiac positive on exam,. While endoscopic evluations are warranted the question is the timing and location of the procedure. It is also unclear re: the extent of his CAD, any need for further cardiac interventions and the need for continued ASA/Plavix, which were on his home medication list. Prior to invasive testing he would need to be cleared from a cardiac stanpoint and coumadin held. 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 For now: Monitor H/H and for overt bleeding Protonix 20mg once daily Dr. Olvera resumes care 05/09/18 Code(s): D64.9 - ANEMIA, UNSPECIFIED Qualifiers: Anemia type: due to chronic kidney disease
--- NOTE | 2018-05-08 19:29 | PN ---
Teaching Attending Note Name of Resident: Hannah Mills ATTENDING PHYSICIAN STATEMENT I saw and evaluated the patient. I reviewed the resident's note and discussed the case with the resident. I agree with the resident's findings and plan as documented with exceptions below. SUBJECTIVE: Patient seen and examined. Breathing improved, no dizziness, chest pain or complaints, doing well. OBJECTIVE: Vital Signs Period Temp Pulse Resp BP Sys/Wyatt Pulse Ox Last 24 Hr 98.8 F-99.5 F 66-89 18-20 139-156/57-78 92-100 Intake & Output 05/05/18 05/06/18 05/07/18 05/08/18 23:59 23:59 23:59 23:59 Intake Total 1044 798 860 Output Total 400 200 500 200 Balance 644 598 360 -200 Weight 130 lb 139 lb 12.8 oz 143 lb 9.6 oz 140 lb General: sitting in bed in no acute distress Chest: mild decreased breath sounds at bases Abdomen:Soft, NT Extremities: no edema Home Medications Medication Instructions Recorded Amlodipine Besylate [Norvasc -] 10 mg PO DAILY 04/22/18 Aspirin Coated [Ecotrin -] 81 mg PO DAILY 04/22/18 Donepezil HCl [Aricept -] 10 mg PO DAILY 04/22/18 Hydralazine HCl 50 mg PO TID 04/22/18 Tamsulosin HCl [Flomax -] 24 mg PO DAILY 04/22/18 Atorvastatin Calcium 80 mg PO DAILY 04/23/18 Calcium Acetate [Phoslo -] 667 mg PO TIDCM 04/23/18 Isosorbide Mononitrate [Isosorbide 60 mg PO DAILY 04/23/18 Mononitrate ER] Sodium Bicarbonate - 10 gr PO TID 04/23/18 Clopidogrel Bisulfate [Plavix] 75 mg PO DAILY 05/03/18 Cyproheptadine [Periactin -] 4 mg PO DAILY 05/03/18 Furosemide [Lasix] 80 mg PO DAILY 05/03/18 Calcium Acetate [Phoslo -] 1,334 mg PO TIDCM #180 capsule 05/08/18 Carvedilol 12.5 mg PO DAILY 05/08/18 Ceftriaxone [Rocephin -] 1 gm IVPB ASDIR #6 vial 05/08/18 Donepezil HCl 10 mg PO DAILY 05/08/18 Doxycycline Hyclate [Vibramycin -] 100 mg PO BID@1000,1800 #28 capsule 05/08/18 Lidocaine 5% Patch [Lidoderm -] 1 patch TP DAILY #7 patch 05/08/18 Lidocaine Patch Removal [Lidoderm 1 each MC DAILY@2200 each 05/08/18 Patch Removal] Pantoprazole Sodium [Protonix -] 20 mg PO DAILY #30 tablet.ec 05/08/18 Polyethylene Glycol 3350 [Miralax 17 gm PO DAILY #10 bottle 05/08/18 119 gm Btl -] Sacubitril/Valsartan [Entresto 97 1 tab PO BID tablet 05/08/18 mg-103 mg Tablet] Warfarin Na [Coumadin -] 5 mg PO DAILY@1800 #14 tablet 05/08/18 Active Medications Acetaminophen (Tylenol -) 650 mg PO Q6H PRN PRN Reason: PAIN Last Admin: 05/06/18 21:39 Dose: 650 mg Atorvastatin Calcium (Lipitor -) 80 mg PO [facility] Last Admin: 05/07/18 21:51 Dose: 80 mg Calcium Acetate (Phoslo -) 1,334 mg PO TIDCM [facility] Last Admin: 05/08/18 16:34 Dose: 1,334 mg Carvedilol (Coreg -) 25 mg PO BID [facility] Last Admin: 05/08/18 11:19 Dose: 25 mg Docusate Sodium (Colace -) 100 mg PO DAILY [facility] Last Admin: 05/08/18 11:19 Dose: 100 mg Donepezil HCl (Aricept -) 10 mg PO [facility] Last Admin: 05/07/18 21:51 Dose: 10 mg Doxycycline Hyclate (Vibramycin -) 100 mg PO BID@1000,1800 [facility] Last Admin: 05/08/18 11:08 Dose: 100 mg Hydralazine HCl (Apresoline -) 50 mg PO TID [facility] Last Admin: 05/08/18 14:34 Dose: 50 mg Ceftriaxone Sodium 1 gm/ (Dextrose) 50 mls @ 100 mls/hr IVPB DAILY [facility]; Protocol Last Admin: 05/08/18 11:18 Dose: 100 mls/hr Sodium Chloride (Normal Saline -) 250 mls @ 3,000 mls/hr IV PRN PRN PRN Reason: Hypotension during Dialysis Stop: 05/07/18 15:36 Isosorbide Mononitrate (Imdur -) 60 mg PO DAILY [facility] Last Admin: 05/08/18 11:19 Dose: 60 mg Lidocaine (Lidoderm Patch -) 1 patch TP DAILY [facility] Last Admin: 05/08/18 14:08 Dose: 1 patch Lidocaine HCl (Xylocaine 2% Viscous Oral -) 20 ml MM Q6H PRN PRN Reason: ORAL PAIN/MOUTH SORES Metoprolol Tartrate (Lopressor Injection -) 5 mg IVPUSH Q4H PRN PRN Reason: HYPERTENSION Miscellaneous (Lidoderm Patch Removal) 1 each MC DAILY@2200 [facility] Last Admin: 05/07/18 21:51 Dose: Not Given Pantoprazole Sodium (Protonix -) 20 mg PO DAILY [facility] Last Admin: 05/08/18 11:19 Dose: 20 mg Polyethylene Glycol (Miralax (For Daily Use) -) 17 gm PO DAILY [facility] Last Admin: 05/08/18 11:20 Dose: Not Given Sacubitril/Valsartan (Entresto 97 Mg-103 Mg Tablet) 1 tab PO BID [facility] Last Admin: 05/08/18 14:08 Dose: 1 tab Tamsulosin HCl (Flomax -) 0.4 mg PO DAILY@0830 [facility] Last Admin: 05/08/18 11:19 Dose: 0.4 mg Laboratory Results - last 24 hr 05/07/18 05/08/18 05/08/18 21:15 05:30 05:30 WBC 11.0 H RBC 3.27 L Hgb 9.3 L Hct 28.6 L MCV 87.5 MCH 28.4 MCHC 32.5 RDW 17.6 H Plt Count 323 MPV 8.6 PT with INR INR PTT (Actin FS) 38.3 D Troponin I Stool Occult Blood Trace 05/08/18 05/08/18 05:30 12:05 WBC RBC Hgb Hct MCV MCH MCHC RDW Plt Count MPV PT with INR 36.70 H INR 3.25 H D PTT (Actin FS) Troponin I 0.14 H D Stool Occult Blood ASSESSMENT AND PLAN: 62yo M with PMH CKD (has refused HD in the past), and CAD presenting with progressively worsening shortness of breath and altered mental status. in the ER was found to have SBP 240. anabelle larkin was activated in the ER -Acute toxic metabolic encephalopathy, likely uremic + hypertensive, s/p emergent HD, now with permacath -Acute hypoxic respiratory failure, suspect fluid overload from ESRD +/- ARDS, resolved, extubated doing well. -Hypertensive emergency, resolved -Acute on CKD stage V -Elevated troponin, suspect demand ischemia from above with recurrent chest pain , now resolved, downtrending troponin -Paroxysmal Atrial fibrillation -Acute on chronic anemia with trace stool occult blood -Sepsis with Strep bacteremia, Suspect PNA Klebsiella/MRSA -Left knee swelling/pain, Suspected hematoma per orthopedic -Normocytic anemia, suspect from CKD/dilutional -Dementia -CAD -Hyperphosphatemia, from ESRD Plan: HD via permacath. Outpatient follow up for definitive access. HD per renal. FOBT trace pos. Recurrent anemia and on coumadin, GI consult, input appreciated. Also discuss with cardiology if patient on anti-platelets currently. Coreg/imdur/entresto/hydralazine. Discussed with Dr. Lorenzo, total 2 weeks of ceftriaxone/doxycycline. SNF arranged. Plan for d/c to SNF pending GI and cardiology input. PLan discussed with patient in detail;, all questions answered.
--- NOTE | 2018-05-08 21:00 | PN ---
Physical Exam: SUBJECTIVE: Patient seen and examined at bedside. Patient had 4 episodes of runny diarrhea that occured without any abdominal pain. Denies Fevers, chills, chest pain, SOB nausea, vomiting. OBJECTIVE: Vital Signs Period Temp Pulse Resp BP Sys/Wyatt Pulse Ox Last 24 Hr 98.8 F-99.5 F 66-89 18-20 139-156/57-80 92-100 Vital Signs Temp 98.8 F 05/08/18 17:00 Pulse 88 05/08/18 17:00 Resp 18 05/08/18 17:00 BP 147/80 05/08/18 17:00 Pulse Ox 92 L 05/08/18 15:51 Intake & Output 05/07/18 05/08/18 05/08/18 23:59 11:59 23:59 Intake Total 810 Output Total 400 200 Balance 410 -200 Weight 63.503 kg Intake: IVPB 100 Oral 360 Packed Cells 350 Output: Urine 400 200 Void 400 200 Other: Voiding Method Urinal Urinal Urinal Bowel Movement Yes Yes # Bowel Movements 3 1 Weight Measurement Method Standing Scale GENERAL: The patient is awake, alert, and fully oriented, in no acute distress. LUNGS: Breath sounds equal, clear to auscultation bilaterally, no wheezes, no crackles HEART: regular rate and rhythm, S1, S2 without murmur, rub or gallop. CHEST: No tenderness, permacath present ABDOMEN: Soft, nontender, nondistended, normoactive bowel sounds Laboratory Results - last 24 hr 05/07/18 05/08/18 05/08/18 21:15 05:30 05:30 WBC 11.0 H RBC 3.27 L Hgb 9.3 L Hct 28.6 L MCV 87.5 MCH 28.4 MCHC 32.5 RDW 17.6 H Plt Count 323 MPV 8.6 PT with INR INR PTT (Actin FS) 38.3 D Troponin I Stool Occult Blood Trace 05/08/18 05/08/18 05:30 12:05 WBC RBC Hgb Hct MCV MCH MCHC RDW Plt Count MPV PT with INR 36.70 H INR 3.25 H D PTT (Actin FS) Troponin I 0.14 H D Stool Occult Blood Active Medications Acetaminophen (Tylenol -) 650 mg PO Q6H PRN PRN Reason: PAIN Last Admin: 05/06/18 21:39 Dose: 650 mg Atorvastatin Calcium (Lipitor -) 80 mg PO HS [facility] Last Admin: 05/07/18 21:51 Dose: 80 mg Calcium Acetate (Phoslo -) 1,334 mg PO TIDCM [facility] Last Admin: 05/08/18 16:34 Dose: 1,334 mg Carvedilol (Coreg -) 25 mg PO BID [facility] Last Admin: 05/08/18 11:19 Dose: 25 mg Docusate Sodium (Colace -) 100 mg PO DAILY [facility] Last Admin: 05/08/18 11:19 Dose: 100 mg Donepezil HCl (Aricept -) 10 mg PO HS [facility] Last Admin: 05/07/18 21:51 Dose: 10 mg Doxycycline Hyclate (Vibramycin -) 100 mg PO BID@1000,1800 [facility] Last Admin: 05/08/18 11:08 Dose: 100 mg Hydralazine HCl (Apresoline -) 50 mg PO TID [facility] Last Admin: 05/08/18 14:34 Dose: 50 mg Ceftriaxone Sodium 1 gm/ (Dextrose) 50 mls @ 100 mls/hr IVPB DAILY [facility]; Protocol Last Admin: 05/08/18 11:18 Dose: 100 mls/hr Sodium Chloride (Normal Saline -) 250 mls @ 3,000 mls/hr IV PRN PRN PRN Reason: Hypotension during Dialysis Stop: 05/07/18 15:36 Isosorbide Mononitrate (Imdur -) 60 mg PO DAILY [facility] Last Admin: 05/08/18 11:19 Dose: 60 mg Lidocaine (Lidoderm Patch -) 1 patch TP DAILY [facility] Last Admin: 05/08/18 14:08 Dose: 1 patch Lidocaine HCl (Xylocaine 2% Viscous Oral -) 20 ml MM Q6H PRN PRN Reason: ORAL PAIN/MOUTH SORES Metoprolol Tartrate (Lopressor Injection -) 5 mg IVPUSH Q4H PRN PRN Reason: HYPERTENSION Miscellaneous (Lidoderm Patch Removal) 1 each MC DAILY@2200 [facility] Last Admin: 05/07/18 21:51 Dose: Not Given Pantoprazole Sodium (Protonix -) 20 mg PO DAILY [facility] Last Admin: 05/08/18 11:19 Dose: 20 mg Polyethylene Glycol (Miralax (For Daily Use) -) 17 gm PO DAILY [facility] Last Admin: 05/08/18 11:20 Dose: Not Given Sacubitril/Valsartan (Entresto 97 Mg-103 Mg Tablet) 1 tab PO BID [facility] Last Admin: 05/08/18 14:08 Dose: 1 tab Tamsulosin HCl (Flomax -) 0.4 mg PO DAILY@0830 [facility] Last Admin: 05/08/18 11:19 Dose: 0.4 mg ASSESSMENT/PLAN: 62 y/o M with PMHx of CKD who had refused HD in the past, and CAD presenting with worsening SOB and AMS. On initial evaluation in the ED, he was found to have SBP 240. Code larkin was activated in the ER 1. Chest Pain - Resolved - Possibly due to Hypoxia, resolved when nasal canula was placed properly - Possibly due to Anemia, Hgb was 9.3 on morning CBC - 1 unit PRBC was transfused on 05/07 2. Acute toxic/metabolic encephalopathy - Due to uremia and HTN crisis - Now at baseline 3. Acute hypoxic respiratory failure - Due to early ARDS with poor mental state - Patient was intubated and now extubated - Saturating well on RA 4. HTN crisis - BP has remained controlled - Continue current regimen 5. Sepsis due to strep bacteremia - clinically improved - repeat BCx: No growth after 5 days - Continue IV Ceftriaxone (Day 11 of total abx) - COntinue PO Doxycycline (Day 11 of total abx) - Consult ID, appreciate recommendations, will need total of 14 days of ABx 6. Afib with RVR - rate improved - INR now supratherapeutic at 3.25 from 2.30 - Continue Coumadin 6mg - Daily INR 7. hyperphosphatemia - due to renal failure - Resolved - Continue Phoslo 1,334 mg PO TIDCM [facility] 8. Acute on CKD - Stage V now on HD - S/P [facility] permacath for HD - HD per normal schedule, will need outpatient HD arranged 9. L knee swelling - Improved - Ortho consulted - likely hematoma no intervention at this time 10. Dysuria - UA negative for infection 11. Elevated troponin - likely demand ischemia - can have further ischemia workup as outpatient 12. Combination of iron def anemia and of chronic disease - Hgb this morning returned to 9.3 - Serial 3 FOBT Ordered - FOBT trace positive this morning - GI consulted, appreciated recs - Will recommend colonoscopy as an outpatient 13. dementia - on aricept 14. DVT ppx - hep ggt 15. [facility] permacath pain - likely due to recent placement and surrounding inflammation - improved on Tylenol prn Dispo: Possible discharge tomorrow Visit type - Emergency Visit Emergency Visit: No - New Patient This patient is new to me today: No - Critical Care Critical Care patient: No
[2018-05-08] MEDS: ATORVASTATIN CA 80 MG TABLET (FP) PO SCH (21:54)
[2018-05-08] MEDS: ACETAMINOPHEN 325 MG TABLET (FP) PO PRN (21:54)
[2018-05-08] MEDS: DONEPEZIL HCL 10 MG TABLET (FP) PO SCH (21:54)
[2018-05-08] MEDS: LIDOCAINE PATCH REMOVAL MC SCH (22:12)
[2018-05-09 06:33] LABS: BASO % 1.4 % (0-2.0); EOS % 2.6 % (0-4.5); HEMOGLOBIN 9.3 GM/dL (11.7-16.9); LYMPH % 9.4 % (8-40); MCH 28.3 pg (25.7-33.7); MCHC 32.1 g/dl (32.0-35.9); MONO % 8.5 % (3.8-10.2); NEUT % 78.1 % (42.8-82.8); PLATELET COUNT 321 K/MM3 (134-434); RBC 3.29 M/mm3 (4.00-5.60); RDW 17.9 % (11.9-15.9); WHITE BLOOD COUNT 8.9 K/mm3 (4.0-10.0)
[2018-05-09] MEDS: hydrALAZINE HCL 50 MG TABLET (FP) PO SCH ×3 (06:33→22:15)
[2018-05-09 06:43] LABS: PROTHROMBIN TIME (PATIENT) 33.9 SEC (9.7-13.0)
[2018-05-09 07:00] LABS: ANION GAP 12 (8-16); BLOOD UREA NITROGEN 63 mg/dL (7-18); CALCIUM 8.2 mg/dL (8.5-10.1); CHLORIDE 96 mmol/L (98-107); CO2 28 mmol/L (21-32); GLUCOSE,RANDOM 75 mg/dL (74-106); POTASSIUM 3.8 mmol/L (3.5-5.1); SODIUM 136 mmol/L (136-145)
[2018-05-09 07:02] LABS: MAGNESIUM 1.8 mg/dL (1.8-2.4); PHOSPHOROUS 4.7 mg/dL (2.5-4.9)
[2018-05-09 07:16] LABS: CREATININE 7.6 mg/dL (0.7-1.3)
[2018-05-09] MEDS: CALCIUM ACETATE 667 MG CAPSULE (FP) PO SCH ×3 (09:00→17:27)
[2018-05-09] MEDS: TAMSULOSIN HCL 0.4 MG CAP.ER.24H (FP) PO SCH (09:30)
[2018-05-09] MEDS: DOXYCYCLINE HYCLATE 100 MG CAPSULE PO SCH ×3 (09:37→17:27)
[2018-05-09] MEDS ORDERED: DEXTROSE 5%-WATER - 50 ML IVPB ONE (09:43)
[2018-05-09] MEDS ORDERED: cefTRIAXone SODIUM 1 GM VIAL ONE (09:43)
[2018-05-09] MEDS: ISOSORBIDE MONONITRATE 60 MG TAB.SR.24H (FP) PO SCH (09:45)
[2018-05-09] MEDS: CEFTRIAXONE 1 GM in DEXTROSE 5%-WATER - 50 ML IVPB SCH (09:45)
[2018-05-09] MEDS: LIDOCAINE 5% TOPICAL PATCH TP SCH (09:45)
[2018-05-09] MEDS: PANTOPRAZOLE 20 MG TABLET (FP) PO SCH (09:45)
[2018-05-09] MEDS: DOCUSATE SODIUM 100 MG CAPSULE (FP) PO SCH (09:45)
[2018-05-09] MEDS: CARVEDILOL 25 MG TABLET (FP) PO SCH ×2 (09:45→22:15)
[2018-05-09] MEDS: SACUBITRIL/VALSARTAN 97 MG-103 MG TABLET PO SCH ×2 (09:46→22:16)
--- NOTE | 2018-05-09 09:50 | PN ---
Progress Note, Physician History of Present Illness: OOB to chair, denies chest pain or dyspnea. Remains SR with PAC. - Current Medication List Current Medications: Active Medications Acetaminophen (Tylenol -) 650 mg PO Q6H PRN PRN Reason: PAIN Last Admin: 05/08/18 21:54 Dose: 650 mg Atorvastatin Calcium (Lipitor -) 80 mg PO HS [facility] Last Admin: 05/08/18 21:54 Dose: 80 mg Calcium Acetate (Phoslo -) 1,334 mg PO TIDCM [facility] Last Admin: 05/09/18 09:00 Dose: 1,334 mg Carvedilol (Coreg -) 25 mg PO BID [facility] Last Admin: 05/09/18 09:45 Dose: 25 mg Docusate Sodium (Colace -) 100 mg PO DAILY [facility] Last Admin: 05/09/18 09:45 Dose: 100 mg Donepezil HCl (Aricept -) 10 mg PO HS [facility] Last Admin: 05/08/18 21:54 Dose: 10 mg Doxycycline Hyclate (Vibramycin -) 100 mg PO BID@1000,1800 [facility] Last Admin: 05/09/18 09:46 Dose: 100 mg Hydralazine HCl (Apresoline -) 50 mg PO TID [facility] Last Admin: 05/09/18 06:33 Dose: 50 mg Ceftriaxone Sodium 1 gm/ (Dextrose) 50 mls @ 100 mls/hr IVPB DAILY [facility]; Protocol Last Admin: 05/09/18 09:45 Dose: 100 mls/hr Isosorbide Mononitrate (Imdur -) 60 mg PO DAILY [facility] Last Admin: 05/09/18 09:45 Dose: 60 mg Lidocaine (Lidoderm Patch -) 1 patch TP DAILY [facility] Last Admin: 05/09/18 09:45 Dose: 1 patch Lidocaine HCl (Xylocaine 2% Viscous Oral -) 20 ml MM Q6H PRN PRN Reason: ORAL PAIN/MOUTH SORES Metoprolol Tartrate (Lopressor Injection -) 5 mg IVPUSH Q4H PRN PRN Reason: HYPERTENSION Miscellaneous (Lidoderm Patch Removal) 1 each MC DAILY@2200 [facility] Last Admin: 05/08/18 22:12 Dose: Not Given Pantoprazole Sodium (Protonix -) 20 mg PO DAILY [facility] Last Admin: 05/09/18 09:45 Dose: 20 mg Polyethylene Glycol (Miralax (For Daily Use) -) 17 gm PO DAILY [facility] Last Admin: 05/08/18 11:20 Dose: Not Given Sacubitril/Valsartan (Entresto 97 Mg-103 Mg Tablet) 1 tab PO BID [facility] Last Admin: 05/09/18 09:46 Dose: 1 tab Tamsulosin HCl (Flomax -) 0.4 mg PO DAILY@0830 [facility] Last Admin: 05/09/18 09:30 Dose: 0.4 mg - Objective Vital Signs: Vital Signs Temperature 98.8 F 05/09/18 09:36 Pulse Rate 80 05/09/18 09:36 Respiratory Rate 17 05/09/18 09:36 Blood Pressure 145/79 05/09/18 09:36 O2 Sat by Pulse Oximetry (%) 99 05/08/18 21:00 Constitutional: Yes: No Distress, Calm, Thin Neck: Yes: Supple Cardiovascular: Yes: Regular Rate and Rhythm Respiratory: Yes: Regular, Diminished, On Nasal O2 Gastrointestinal: Yes: Normal Bowel Sounds, Soft Edema: No Labs: CBC, BMP 05/09/18 05:30 05/09/18 05:30 INR, PTT INR 3.00 (0.82-1.09) H 05/09/18 05:30 - ....Imaging EKG: Report Reviewed (Tele: [facility] PAC) Problem List - Problems (1) Acute on chronic systolic (congestive) heart failure Code(s): I50.23 - ACUTE ON CHRONIC SYSTOLIC (CONGESTIVE) HEART FAILURE (2) Hypertensive cardiomyopathy Code(s): I11.9 - HYPERTENSIVE HEART DISEASE WITHOUT HEART FAILURE; I43 - CARDIOMYOPATHY IN DISEASES CLASSIFIED ELSEWHERE Qualifiers: Heart failure presence: with heart failure Qualified Code(s): I11.0 - Hypertensive heart disease with heart failure; I43 - Cardiomyopathy in diseases classified elsewhere (3) Hyperlipidemia Code(s): E78.5 - HYPERLIPIDEMIA, UNSPECIFIED Qualifiers: Hyperlipidemia type: pure hypercholesterolemia Qualified Code(s): E78.00 - Pure hypercholesterolemia, unspecified; E78.0 - Pure hypercholesterolemia (4) Ischemic cardiomyopathy Code(s): I25.5 - ISCHEMIC CARDIOMYOPATHY (5) End stage renal disease Code(s): N18.6 - END STAGE RENAL DISEASE (6) Old inferolateral myocardial infarction Code(s): I25.2 - OLD MYOCARDIAL INFARCTION (7) Anemia Code(s): D64.9 - ANEMIA, UNSPECIFIED Qualifiers: Anemia type: due to chronic kidney disease Assessment/Plan January 17, 2015 R&LHc @ [facility]: 3 vessel CAD with HAND TOOL LAPPER RVA and OM2, elevated right and left heart pressures January 19, 2015 Echo: Mod LVH moderate decreased LVEF 40% with AK inferior and inferoseptal, mild AR, MR, mild LAE January 22, 2015 Lexiscan Myoview: Dense scar inferior wall, large lateral ischemia, inferolateral AK, LVEF 30% January 21, 2015 Rest and redistribution Thallium: Scar involving entire inferior wall, basal to mid inferolateral, basal inferoseptal, and apex, no significant hibernating myocardiaum, dilated LV with severely decreased LVEF 27% April 23, 2018 Echo: Moderately dilated with moderate decreased LV fxn, mild decreased RV fxn, mild AR, mild LAE 1. Acute on chronic diastolic/systolic failure and pulmonary edema referable to 2. Hypertensive urgency in context of dietary/medical indiscretion (previously declined HD) 3. Post acute hypoxic respiratory failure 4. CAD s/p MD, demand ischemic injury 5. Ischemic cardiomyopathy (moderate) 6. Acute on Chronic Renal Failure requiring HD 7. Paroxysmal atrial fibrillation with therapeutic INR 8. Resolved Altered Mental Status - Hypertensive vs Uremic Encephalopathy 9. Anemia of CKD 10. PNA - Klebsiella/MRSA, Streptococcal bacteremia P:1. Volume removal via UF/HD via left PC 2. Continue carvedilol 25 bid, hydralazine 50 tid, Imdur 60 qd (BiDil), Lipitor 80 qd, and Entresto 97/103 bid 3. Continue coumadin per INR 2-3 with GI protection, no concomitant antiplatelets warranted as CAD is stable 4. O2 to maintain saturation, complete abx course per ID, PT as tolerated 5. Pt to f/u with Dr. Jeannette Kaiser at [facility] upon d/c
[2018-05-09] MEDS ORDERED: EPOETIN ALFA 10,000 UNIT/1 ML VIAL IVPUSH ONE (11:15)
[2018-05-09] MEDS: POLYETHYLENE GLYCOL 3350 119 GM BTL PO SCH (11:18)
--- NOTE | 2018-05-09 12:06 | PN ---
Physical Exam: SUBJECTIVE: Patient seen and examined, no complaints, overall feels well. OBJECTIVE: Vital Signs Period Temp Pulse Resp BP Sys/Wyatt Pulse Ox Last 24 Hr 98.6 F-99.3 F 66-90 17-20 127-147/57-80 92-99 GENERAL: lying in bed in no acute distress Chest: Decreased effort, no rales or wheezing Abdomen:soft, NT, nD Extremities: no edema Laboratory Results - last 24 hr 05/08/18 05/09/18 05/09/18 12:05 05:30 05:30 WBC 8.9 RBC 3.29 L Hgb 9.3 L Hct 29.0 L MCV 88.0 MCH 28.3 MCHC 32.1 RDW 17.9 H Plt Count 321 MPV 9.0 Absolute Neuts (auto) 7.0 Neutrophils % 78.1 Lymphocytes % 9.4 Monocytes % 8.5 Eosinophils % 2.6 Basophils % 1.4 Nucleated RBC % 0 PT with INR 36.70 H 33.90 H INR 3.25 H D 3.00 H Sodium Potassium Chloride Carbon Dioxide Anion Gap BUN Creatinine Creat Clearance w eGFR Random Glucose Calcium Phosphorus Magnesium 05/09/18 05:30 WBC RBC Hgb Hct MCV MCH MCHC RDW Plt Count MPV Absolute Neuts (auto) Neutrophils % Lymphocytes % Monocytes % Eosinophils % Basophils % Nucleated RBC % PT with INR INR Sodium 136 Potassium 3.8 Chloride 96 L Carbon Dioxide 28 Anion Gap 12 BUN 63 H Creatinine 7.6 H* Creat Clearance w eGFR 7.27 Random Glucose 75 D Calcium 8.2 L Phosphorus 4.7 D Magnesium 1.8 Active Medications Generic Name Dose Route Start Last Admin Trade Name Mile PRN Reason Stop Dose Admin Acetaminophen 650 mg 05/05/18 16:00 05/08/18 21:54 Tylenol - PO 650 mg Q6H PRN Administration PAIN Atorvastatin Calcium 80 mg 05/02/18 22:00 05/08/18 21:54 Lipitor - PO 80 mg HS [facility] Administration Calcium Acetate 1,334 mg 05/03/18 08:00 05/09/18 09:00 Phoslo - PO 1,334 mg TIDCM [facility] Administration Carvedilol 25 mg 05/02/18 22:00 05/09/18 09:45 Coreg - PO 25 mg BID [facility] Administration Docusate Sodium 100 mg 05/06/18 10:00 05/09/18 09:45 Colace - PO 100 mg DAILY [facility] Administration Donepezil HCl 10 mg 05/02/18 22:00 05/08/18 21:54 Aricept - PO 10 mg HS [facility] Administration Doxycycline Hyclate 100 mg 05/03/18 18:00 05/09/18 09:46 Vibramycin - PO 100 mg BID@1000,1800 [facility] Administration Hydralazine HCl 50 mg 05/02/18 22:00 05/09/18 06:33 Apresoline - PO 50 mg TID [facility] Administration Ceftriaxone Sodium 1 gm/ 50 mls @ 100 mls/hr 05/03/18 17:00 05/09/18 09:45 Dextrose IVPB 100 mls/hr DAILY [facility] Administration Protocol Isosorbide Mononitrate 60 mg 05/03/18 10:00 05/09/18 09:45 Imdur - PO 60 mg DAILY [facility] Administration Lidocaine 1 patch 05/03/18 10:00 05/09/18 09:45 Lidoderm Patch - TP 1 patch DAILY [facility] Administration Lidocaine HCl 20 ml 05/02/18 18:24 Xylocaine 2% Viscous Oral - MM Q6H PRN ORAL PAIN/MOUTH SORES Metoprolol Tartrate 5 mg 05/02/18 21:40 Lopressor Injection - IVPUSH Q4H PRN HYPERTENSION Miscellaneous 1 each 05/03/18 22:00 05/08/18 22:12 Lidoderm Patch Removal MC Not Given DAILY@2200 [facility] Pantoprazole Sodium 20 mg 05/03/18 10:00 05/09/18 09:45 Protonix - PO 20 mg DAILY [facility] Administration Polyethylene Glycol 17 gm 05/06/18 10:00 05/09/18 11:18 Miralax (For Daily Use) - PO Not Given DAILY [facility] Sacubitril/Valsartan 1 tab 05/03/18 10:00 05/09/18 09:46 Entresto 97 Mg-103 Mg Tablet PO 1 tab BID [facility] Administration Tamsulosin HCl 0.4 mg 05/03/18 08:30 05/09/18 09:30 Flomax - PO 0.4 mg DAILY@0830 [facility] Administration ASSESSMENT/PLAN: 62yo M with PMH CKD (has refused HD in the past), and CAD presenting with progressively worsening shortness of breath and altered mental status. in the ER was found to have SBP 240. code larkin was activated in the ER -Acute toxic metabolic encephalopathy, likely uremic + hypertensive, s/p emergent HD, now with permacath -Acute hypoxic respiratory failure, suspect fluid overload from ESRD +/- ARDS, resolved, extubated doing well. -Hypertensive emergency, resolved -Acute on CKD stage V -Elevated troponin, suspect demand ischemia from above with recurrent chest pain , now resolved, downtrending troponin -Paroxysmal Atrial fibrillation -Acute on chronic anemia with trace stool occult blood -Sepsis with Strep bacteremia, Suspect PNA Klebsiella/MRSA -Left knee swelling/pain, Suspected hematoma per orthopedic -Normocytic anemia, suspect from CKD/dilutional -Dementia -CAD -Hyperphosphatemia, from ESRD Plan: Cefepime/vanco started 04/25, changed to ceftriaxone/doxy 0n 05/03, antibiotic day 14 today. Will d/c after today to finish a 2 week coures per ID recs. HD via permacath. Outpatient follow up for definitive access. HD per renal. FOBT trace pos. GI input noted. H/h stable, no gross evidence of bleed. Discussed with Dr. Mujica. patient was changed to coumadin from plavix outpatient. Recommend continuation of coumadin and no indication for adding additional anti- platelets currently as discussed. Resume coumadin at 3 mg today. Coreg/imdur/entresto/hydralazine. Discussed with renal, for HD today. SNF arranged. Plan for d/c to SNF in 24 hours if h/h stable and no concerns with outpatient GI /cardiology follow up. PLan discussed with patient in detail;, all questions answered. Visit type - Emergency Visit Emergency Visit: Yes ED Registration Date: 04/22/18 Care time: The patient presented to the Emergency Department on the above date and was hospitalized for further evaluation of their emergent condition. - New Patient This patient is new to me today: No - Critical Care Critical Care patient: No - Discharge Referral Referred to [facility] Med P.C.: No
--- NOTE | 2018-05-09 14:27 | PN ---
Progress Note, Physician History of Present Illness: patient stable no complaints doing well - Current Medication List Current Medications: Active Medications Acetaminophen (Tylenol -) 650 mg PO Q6H PRN PRN Reason: PAIN Last Admin: 05/08/18 21:54 Dose: 650 mg Atorvastatin Calcium (Lipitor -) 80 mg PO HS [facility] Last Admin: 05/08/18 21:54 Dose: 80 mg Calcium Acetate (Phoslo -) 1,334 mg PO TIDCM [facility] Last Admin: 05/09/18 12:08 Dose: 1,334 mg Carvedilol (Coreg -) 25 mg PO BID [facility] Last Admin: 05/09/18 09:45 Dose: 25 mg Docusate Sodium (Colace -) 100 mg PO DAILY [facility] Last Admin: 05/09/18 09:45 Dose: 100 mg Donepezil HCl (Aricept -) 10 mg PO [facility] Last Admin: 05/08/18 21:54 Dose: 10 mg Doxycycline Hyclate (Vibramycin -) 100 mg PO BID@1000,1800 [facility] Last Admin: 05/09/18 09:46 Dose: 100 mg Hydralazine HCl (Apresoline -) 50 mg PO TID [facility] Last Admin: 05/09/18 14:11 Dose: 50 mg Ceftriaxone Sodium 1 gm/ (Dextrose) 50 mls @ 100 mls/hr IVPB DAILY [facility]; Protocol Last Admin: 05/09/18 09:45 Dose: 100 mls/hr Isosorbide Mononitrate (Imdur -) 60 mg PO DAILY [facility] Last Admin: 05/09/18 09:45 Dose: 60 mg Lidocaine (Lidoderm Patch -) 1 patch TP DAILY [facility] Last Admin: 05/09/18 09:45 Dose: 1 patch Lidocaine HCl (Xylocaine 2% Viscous Oral -) 20 ml MM Q6H PRN PRN Reason: ORAL PAIN/MOUTH SORES Metoprolol Tartrate (Lopressor Injection -) 5 mg IVPUSH Q4H PRN PRN Reason: HYPERTENSION Miscellaneous (Lidoderm Patch Removal) 1 each MC DAILY@2200 [facility] Last Admin: 05/08/18 22:12 Dose: Not Given Pantoprazole Sodium (Protonix -) 20 mg PO DAILY [facility] Last Admin: 05/09/18 09:45 Dose: 20 mg Polyethylene Glycol (Miralax (For Daily Use) -) 17 gm PO DAILY [facility] Last Admin: 05/09/18 11:18 Dose: Not Given Sacubitril/Valsartan (Entresto 97 Mg-103 Mg Tablet) 1 tab PO BID [facility] Last Admin: 05/09/18 09:46 Dose: 1 tab Tamsulosin HCl (Flomax -) 0.4 mg PO DAILY@0830 [facility] Last Admin: 05/09/18 09:30 Dose: 0.4 mg Warfarin Sodium (Coumadin -) 3 mg PO ONCE@1800 ONE Stop: 05/09/18 18:01 - Objective Vital Signs: Vital Signs Temperature 98.8 F 05/09/18 09:36 Pulse Rate 80 05/09/18 09:36 Respiratory Rate 17 05/09/18 09:36 Blood Pressure 145/79 05/09/18 09:36 O2 Sat by Pulse Oximetry (%) 98 05/09/18 09:00 Constitutional: Yes: No Distress, Calm Cardiovascular: Yes: Regular Rate and Rhythm Gastrointestinal: Yes: Normal Bowel Sounds, Soft Musculoskeletal: Yes: WNL Extremities: Yes: WNL Neurological: Yes: Alert, Oriented Psychiatric: Yes: Alert, Oriented Labs: CBC, BMP 05/09/18 05:30 05/09/18 05:30 INR, PTT INR 3.00 (0.82-1.09) H 05/09/18 05:30 Assessment/Plan Problem List - Problems (1) Acute on chronic systolic (congestive) heart failure Code(s): I50.23 - ACUTE ON CHRONIC SYSTOLIC (CONGESTIVE) HEART FAILURE (2) CAD (coronary artery disease) Code(s): I25.10 - ATHSCL HEART DISEASE OF [place] CORONARY ARTERY W/O ANG PCTRS Qualifiers: Coronary Disease-Associated Artery/Lesion type: [place] artery [place] vs. transplanted heart: [place] heart Associated angina: without angina Qualified Code(s): I25.10 - Atherosclerotic heart disease of [place] coronary artery without angina pectoris (3) End stage renal disease Code(s): N18.6 - END STAGE RENAL DISEASE (4) Hyperlipidemia Code(s): E78.5 - HYPERLIPIDEMIA, UNSPECIFIED Qualifiers: Hyperlipidemia type: pure hypercholesterolemia Qualified Code(s): E78.00 - Pure hypercholesterolemia, unspecified; E78.0 - Pure hypercholesterolemia (5) Hypertensive cardiomyopathy Code(s): I11.9 - HYPERTENSIVE HEART DISEASE WITHOUT HEART FAILURE; I43 - CARDIOMYOPATHY IN DISEASES CLASSIFIED ELSEWHERE Qualifiers: Heart failure presence: with heart failure Qualified Code(s): I11.0 - Hypertensive heart disease with heart failure; I43 - Cardiomyopathy in diseases classified elsewhere (6) Ischemic cardiomyopathy Code(s): I25.5 - ISCHEMIC CARDIOMYOPATHY (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 male admitted with SOB/Acute respiratory failure, Pulmonary congestion, Fever, with Femoral catheter in place Sepsis PNA - Klebsiella/MRSA Streptococcal bacteremia Persistent Fever Lt knee pain/mild swelling Renal Failure - now on HD CHF/Pulm edema Hypertensive urgency CAD s/p [place] s/p hypoxic resp failure plan continue current abx patient improving incentive caleb rest as per the team doxy for a month ceftriaxone for 2 weeks
--- NOTE | 2018-05-09 17:10 | PN ---
Progress Note, Physician Chief Complaint: No events. No complaints. No overt GI bleeding, or melena. - Current Medication List Current Medications: Active Medications Acetaminophen (Tylenol -) 650 mg PO Q6H PRN PRN Reason: PAIN Last Admin: 05/08/18 21:54 Dose: 650 mg Atorvastatin Calcium (Lipitor -) 80 mg PO [facility] Last Admin: 05/08/18 21:54 Dose: 80 mg Calcium Acetate (Phoslo -) 1,334 mg PO TIDCM [facility] Last Admin: 05/09/18 12:08 Dose: 1,334 mg Carvedilol (Coreg -) 25 mg PO BID [facility] Last Admin: 05/09/18 09:45 Dose: 25 mg Docusate Sodium (Colace -) 100 mg PO DAILY [facility] Last Admin: 05/09/18 09:45 Dose: 100 mg Donepezil HCl (Aricept -) 10 mg PO [facility] Last Admin: 05/08/18 21:54 Dose: 10 mg Doxycycline Hyclate (Vibramycin -) 100 mg PO BID@1000,1800 [facility] Last Admin: 05/09/18 09:46 Dose: 100 mg Hydralazine HCl (Apresoline -) 50 mg PO TID [facility] Last Admin: 05/09/18 14:11 Dose: 50 mg Ceftriaxone Sodium 1 gm/ (Dextrose) 50 mls @ 100 mls/hr IVPB DAILY [facility]; Protocol Last Admin: 05/09/18 09:45 Dose: 100 mls/hr Isosorbide Mononitrate (Imdur -) 60 mg PO DAILY [facility] Last Admin: 05/09/18 09:45 Dose: 60 mg Lidocaine (Lidoderm Patch -) 1 patch TP DAILY [facility] Last Admin: 05/09/18 09:45 Dose: 1 patch Lidocaine HCl (Xylocaine 2% Viscous Oral -) 20 ml MM Q6H PRN PRN Reason: ORAL PAIN/MOUTH SORES Metoprolol Tartrate (Lopressor Injection -) 5 mg IVPUSH Q4H PRN PRN Reason: HYPERTENSION Miscellaneous (Lidoderm Patch Removal) 1 each MC DAILY@2200 [facility] Last Admin: 05/08/18 22:12 Dose: Not Given Pantoprazole Sodium (Protonix -) 20 mg PO DAILY [facility] Last Admin: 05/09/18 09:45 Dose: 20 mg Polyethylene Glycol (Miralax (For Daily Use) -) 17 gm PO DAILY [facility] Last Admin: 05/09/18 11:18 Dose: Not Given Sacubitril/Valsartan (Entresto 97 Mg-103 Mg Tablet) 1 tab PO BID [facility] Last Admin: 05/09/18 09:46 Dose: 1 tab Tamsulosin HCl (Flomax -) 0.4 mg PO DAILY@0830 [facility] Last Admin: 05/09/18 09:30 Dose: 0.4 mg Warfarin Sodium (Coumadin -) 3 mg PO ONCE@1800 ONE Stop: 05/09/18 18:01 - Objective Vital Signs: Vital Signs Temperature 98.6 F 05/09/18 14:55 Pulse Rate 79 05/09/18 16:30 Respiratory Rate 18 05/09/18 16:30 Blood Pressure 163/75 05/09/18 16:30 O2 Sat by Pulse Oximetry (%) 98 05/09/18 09:00 Constitutional: Yes: No Distress, Calm Eyes: Yes: Conjunctiva Clear HENT: Yes: Atraumatic Neck: Yes: Supple Cardiovascular: No: Bradycardia, Tachycardia Respiratory: Yes: Regular Gastrointestinal: Yes: Normal Bowel Sounds, Soft. No: Abdomen, Obese, Ascites, Distention, Melena, Tenderness, Tenderness, Epigastrium, Tenderness, Rebound, Vomiting Neurological: Yes: Alert, Oriented Labs: CBC, BMP 05/09/18 05:30 05/09/18 05:30 INR, PTT INR 3.00 (0.82-1.09) H 05/09/18 05:30 Laboratory Last Values WBC 8.9 K/mm3 (4.0-10.0) 05/09/18 05:30 RBC 3.29 M/mm3 (4.00-5.60) L 05/09/18 05:30 Hgb 9.3 GM/dL (11.7-16.9) L 05/09/18 05:30 Hct 29.0 % (35.4-49) L 05/09/18 05:30 MCV 88.0 fl (80-96) 05/09/18 05:30 MCH 28.3 pg (25.7-33.7) 05/09/18 05:30 MCHC 32.1 g/dl (32.0-35.9) 05/09/18 05:30 RDW 17.9 % (11.9-15.9) H 05/09/18 05:30 Plt Count 321 K/MM3 (134-434) 05/09/18 05:30 MPV 9.0 fl (7.5-11.1) 05/09/18 05:30 Absolute Neuts (auto) 7.0 # 05/09/18 05:30 Neutrophils % 78.1 % (42.8-82.8) 05/09/18 05:30 Neutrophils % (Manual) 58.4 % (42.8-82.8) 04/22/18 13:55 Band Neutrophils % 0.0 % 04/22/18 13:55 Lymphocytes % 9.4 % (8-40) 05/09/18 05:30 Lymphocytes % (Manual) 25.7 % (8-40) 04/22/18 13:55 Monocytes % 8.5 % (3.8-10.2) 05/09/18 05:30 Monocytes % (Manual) 11 % (3.8-10.2) H 04/22/18 13:55 Eosinophils % 2.6 % (0-4.5) 05/09/18 05:30 Eosinophils % (Manual) 3.0 % (0-4.5) 04/22/18 13:55 Basophils % 1.4 % (0-2.0) 05/09/18 05:30 Basophils % (Manual) 2.0 % (0-2.0) 04/22/18 13:55 Myelocytes % (Man) 0 % (0-2) 04/22/18 13:55 Promyelocytes % (Man) 0 % (0-2) 04/22/18 13:55 Blast Cells % (Manual) 0 % (0-0) 04/22/18 13:55 Nucleated RBC % 0 % (0-0) 05/09/18 05:30 Metamyelocytes 0 % (0-2) 04/22/18 13:55 Hypochromia 0 04/22/18 13:55 Platelet Estimate Normal 04/22/18 13:55 Polychromasia 0 04/22/18 13:55 Poikilocytosis 1+ 04/22/18 13:55 Anisocytosis 2+ 04/22/18 13:55 Microcytosis 1+ 04/22/18 13:55 Macrocytosis 0 04/22/18 13:55 PT with INR 33.90 SEC (9.7-13.0) H 05/09/18 05:30 INR 3.00 (0.82-1.09) H 05/09/18 05:30 PTT (Actin FS) 38.3 SECONDS (25.2-36.5) D 05/08/18 05:30 Anticoagulation Therapy No Result Required. 04/23/18 06:40 Puncture Site Right radial 04/23/18 06:40 ABG pH 7.31 (7.35-7.45) L 04/23/18 06:40 ABG pCO2 at Pt Temp 39.9 mmHg (35-45) 04/23/18 06:40 ABG pO2 at Pt Temp 428.0 mmHg (80-100) H* 04/23/18 06:40 ABG HCO3 19.7 meq/L (22-26) L 04/23/18 06:40 ABG O2 Sat (Measured) 100.0 % (90-98.9) H* 04/23/18 06:40 ABG O2 Content 16.2 % vol (15-22) 04/23/18 06:40 ABG Base Excess -5.5 meq/l (-2-2) L 04/23/18 06:40 Medardo Test Positive 04/23/18 06:40 O2 Delivery Device Vent 04/23/18 06:40 Oxygen Flow Rate 100% 04/23/18 06:40 Vent Mode No Result Required. 04/23/18 06:40 Vent Rate 14 04/23/18 06:40 Mechanical Rate No Result Required. 04/23/18 06:40 PEEP 5.0 cmH2O 04/23/18 06:40 Pressure Support Vent 450 04/23/18 06:40 Sodium 136 mmol/L (136-145) 05/09/18 05:30 Potassium 3.8 mmol/L (3.5-5.1) 05/09/18 05:30 Chloride 96 mmol/L (98-107) L 05/09/18 05:30 Carbon Dioxide 28 mmol/L (21-32) 05/09/18 05:30 Anion Gap 12 (8-16) 05/09/18 05:30 BUN 63 mg/dL (7-18) H 05/09/18 05:30 Creatinine 7.6 mg/dL (0.7-1.3) H* 05/09/18 05:30 Creat Clearance w eGFR 7.27 (>60) 05/09/18 05:30 POC Glucometer 109 UNITS (80-120) 05/04/18 16:52 Random Glucose 75 mg/dL (74-106) D 05/09/18 05:30 Uric Acid 5.1 mg/dL (2.6-7.2) 04/30/18 06:00 Calcium 8.2 mg/dL (8.5-10.1) L 05/09/18 05:30 Phosphorus 4.7 mg/dL (2.5-4.9) D 05/09/18 05:30 Magnesium 1.8 mg/dL (1.8-2.4) 05/09/18 05:30 Iron 53 ug/dL (38-169) 05/02/18 05:30 TIBC 195 ug/dL (250-450) L 05/02/18 05:30 Iron Saturation 27 % (15-55) 05/02/18 05:30 Ferritin 370.5 ng/ml (16.4-293.9) H 05/02/18 05:30 Total Bilirubin 0.3 mg/dL (0.2-1.0) 05/05/18 06:00 AST 20 U/L (15-37) 05/05/18 06:00 ALT 27 U/L (12-78) 05/05/18 06:00 Alkaline Phosphatase 113 U/L (45-117) 05/05/18 06:00 Creatine Kinase 226 IU/L (39-308) 04/22/18 13:55 Creatine Kinase Index 1.6 % (0.0-5.0) 04/22/18 13:55 CK-MB (CK-2) 3.8 ng/mL (0.5-3.6) H 04/22/18 13:55 Troponin I 0.14 ng/ml (0.00-0.05) H D 05/08/18 05:30 Total Protein 5.7 g/dl (6.4-8.2) L 05/05/18 06:00 Albumin 1.9 g/dl (3.4-5.0) L 05/05/18 06:00 Triglycerides 76 mg/dL (35-160) 04/22/18 13:55 Cholesterol 178 mg/dL (50-200) 04/22/18 13:55 Total LDL Cholesterol 106 mg/dL (5-100) H 04/22/18 13:55 HDL Cholesterol 63 mg/dL (40-60) H 04/22/18 13:55 Urine Color Ltyellow 04/30/18 10:25 Urine Appearance Clear 04/30/18 10:25 Urine pH 7.0 (5.0-8.0) 04/30/18 10:25 Ur Specific Lloyd 1.010 (1.001-1.035) 04/30/18 10:25 Urine Protein 2+ (NEGATIVE) H 04/30/18 10:25 Urine Glucose (UA) 1+ (NEGATIVE) H 04/30/18 10:25 Urine Ketones Negative (NEGATIVE) 04/30/18 10:25 Urine Blood 1+ (NEGATIVE) H 04/30/18 10:25 Urine Nitrite Negative (NEGATIVE) 04/30/18 10:25 Urine Bilirubin Negative (<2.0 mg/dL) 04/30/18 10:25 Urine Urobilinogen Negative mg/dL (0.2-1.0) 04/30/18 10:25 Ur Leukocyte Esterase Negative (NEGATIVE) 04/30/18 10:25 Urine WBC (Auto) 5 /hpf (3-5) 04/30/18 10:25 Urine RBC (Auto) 16 /hpf (0-3) 04/30/18 10:25 Ur Epithelial Cells Rare /HPF (FEW) 04/30/18 10:25 Urine Bacteria Rare /hpf (NONE SEEN) 04/26/18 16:00 Urine Mucus Rare 04/22/18 18:10 Stool Occult Blood Trace (NEGATIVE) 05/07/18 21:15 Random Vancomycin 11.67 ug/ml 05/02/18 09:00 Opiates Screen Negative ng/ml (ZNNYQW=385) 04/22/18 18:10 Methadone Screen Negative ng/ml (CARONB=595) 04/22/18 18:10 Barbiturate Screen Negative ng/ml (JALJZY=070) 04/22/18 18:10 Phencyclidine Screen Negative ng/ml (CUTOFF=25) 04/22/18 18:10 Ur Amphetamines Screen Negative ng/ml (QGMEPF=943) 06/17/18 18:10 MDMA (Ecstasy) Screen Negative ng/ml (EQWTDR=984) 04/22/18 18:10 Benzodiazepines Screen Negative ng/ml (TGOFXC=358) 04/22/18 18:10 Cocaine Screen Negative ng/ml (ZUNPYN=313) 04/22/18 18:10 U Marijuana (THC) Screen Negative ng/ml (CUTOFF=50) 04/22/18 18:10 Hep A IgM Ab Confirm Negative (Negative) 04/22/18 13:30 Hepatitis A Ab Total Positive (Negative) H 04/22/18 13:30 Hep Bs Antigen Negative (Negative) 04/22/18 13:30 Hep Bs Antibody Reactive (.) 04/22/18 13:30 Hep B Core Total Ab Negative (Negative) 04/22/18 13:30 Hep C Ab Diagnostic <0.1 s/co ratio (0.0-0.9) 04/22/18 21:30 Liver Fibrosis Interp (.) 04/22/18 21:30 Blood Type O POSITIVE 05/07/18 10:15 Antibody Screen Negative 05/07/18 10:15 Crossmatch See Detail 05/07/18 10:15 Problem List - Problems (1) Normocytic normochromic anemia Code(s): D64.9 - ANEMIA, UNSPECIFIED (2) Acute on chronic systolic (congestive) heart failure Code(s): I50.23 - ACUTE ON CHRONIC SYSTOLIC (CONGESTIVE) HEART FAILURE (3) End stage renal disease Code(s): N18.6 - END STAGE RENAL DISEASE (4) Ischemic cardiomyopathy Code(s): I25.5 - ISCHEMIC CARDIOMYOPATHY Assessment/Plan Multifactorial anemia in a high risk patient in hypocoagulable state w/o stigmata of overt GI bleeding. Rec. GI prohylaxis and non-urgent endoscopic work up if and when it is safe to do. Monitor for signs and symptoms of over GI bleeding. Discussed with the patient.
[2018-05-09] MEDS ORDERED: WARFARIN NA 3 MG TABLET PO ONE (18:00)
--- NOTE | 2018-05-09 19:49 | PN ---
Progress Note (short form) - Note Progress Note: 62 year old man with stage 5 chronic kidney disease admitted with uremia and hypertensive crisis. Patient was initiated on hemodialysis with some improvement. However [facility] was postponed secondary to guiac positive stool and ? diarrhea. Patientis feeling better today but still states that he cannot walk and thus needs rehab. H3e denies any chest pain. Vitals Vital Signs (72 hours) 05/06/18 05/06/18 05/06/18 20:32 20:40 22:00 Temperature 98.8 F Pulse Rate 81 Respiratory 20 20 Rate Blood Pressure 138/48 O2 Sat by Pulse 98 98 Oximetry (%) 05/07/18 05/07/18 05/07/18 02:25 04:53 09:00 Temperature 98.0 F 98.8 F 98.7 F Pulse Rate 81 90 92 H Respiratory 20 20 18 Rate Blood Pressure 139/48 126/58 142/78 O2 Sat by Pulse 98 Oximetry (%) 05/07/18 05/07/18 05/07/18 10:10 10:15 10:45 Temperature 98.8 F Pulse Rate 80 72 79 Respiratory 18 18 18 Rate Blood Pressure 150/79 135/75 143/82 O2 Sat by Pulse Oximetry (%) 05/07/18 05/07/18 05/07/18 11:15 11:45 12:15 Temperature Pulse Rate 81 79 81 Respiratory 18 18 18 Rate Blood Pressure 148/79 150/85 156/75 O2 Sat by Pulse Oximetry (%) 05/07/18 05/07/18 05/07/18 12:45 13:15 13:20 Temperature Pulse Rate 79 77 78 Respiratory 18 18 18 Rate Blood Pressure 167/91 161/90 163/89 O2 Sat by Pulse Oximetry (%) 05/07/18 05/07/18 05/07/18 14:20 17:00 21:00 Temperature 99.3 F 98.8 F 99.2 F Pulse Rate 82 98 H 84 Respiratory 18 18 18 Rate Blood Pressure 152/82 145/75 156/72 O2 Sat by Pulse 100 Oximetry (%) 05/08/18 05/08/18 05/08/18 02:00 06:00 09:00 Temperature 99 F 98.8 F 99.5 F Pulse Rate 89 88 74 Respiratory 20 20 Rate Blood Pressure 151/70 149/69 143/78 O2 Sat by Pulse Oximetry (%) 05/08/18 05/08/18 05/08/18 14:15 15:51 17:00 Temperature 99.3 F 98.8 F Pulse Rate 66 75 88 Respiratory 20 18 Rate Blood Pressure 139/57 147/80 O2 Sat by Pulse 92 L Oximetry (%) 05/08/18 05/09/18 05/09/18 21:00 02:00 05:41 Temperature 98.8 F 98.6 F 98.6 F Pulse Rate 84 76 90 Respiratory 18 18 18 Rate Blood Pressure 144/68 127/71 132/80 O2 Sat by Pulse 99 Oximetry (%) 05/09/18 05/09/18 05/09/18 09:00 09:36 14:10 Temperature 98.8 F 98.4 F Pulse Rate 80 71 Respiratory 17 17 18 Rate Blood Pressure 145/79 135/67 O2 Sat by Pulse 98 Oximetry (%) 05/09/18 05/09/18 05/09/18 14:55 15:00 15:30 Temperature 98.6 F Pulse Rate 77 73 73 Respiratory 18 18 18 Rate Blood Pressure 137/81 151/81 151/81 O2 Sat by Pulse Oximetry (%) 05/09/18 05/09/18 05/09/18 16:00 16:30 17:00 Temperature Pulse Rate 73 79 77 Respiratory 18 18 18 Rate Blood Pressure 165/81 163/75 172/84 O2 Sat by Pulse Oximetry (%) 05/09/18 05/09/18 05/09/18 17:30 18:00 18:12 Temperature Pulse Rate 70 72 73 Respiratory 18 18 18 Rate Blood Pressure 159/83 172/84 171/97 O2 Sat by Pulse Oximetry (%) Lungs: coarse breath sound in both lung rangel. Heart: S1 [id number] Abd: Full, soft, non-tender, BS normal Abd; Full, Soft, non-tender Ext> No edema Access: left permacath. Neuro: Awake and alert Decreased motor strength bilat Labs: CBCD WBC 8.9 K/mm3 (4.0-10.0) 05/09/18 05:30 RBC 3.29 M/mm3 (4.00-5.60) L 05/09/18 05:30 Hgb 9.3 GM/dL (11.7-16.9) L 05/09/18 05:30 Hct 29.0 % (35.4-49) L 05/09/18 05:30 MCV 88.0 fl (80-96) 05/09/18 05:30 MCHC 32.1 g/dl (32.0-35.9) 05/09/18 05:30 RDW 17.9 % (11.9-15.9) H 05/09/18 05:30 Plt Count 321 K/MM3 (134-434) 05/09/18 05:30 MPV 9.0 fl (7.5-11.1) 05/09/18 05:30 CMP Sodium 136 mmol/L (136-145) 05/09/18 05:30 Potassium 3.8 mmol/L (3.5-5.1) 05/09/18 05:30 Chloride 96 mmol/L (98-107) L 05/09/18 05:30 Carbon Dioxide 28 mmol/L (21-32) 05/09/18 05:30 Anion Gap 12 (8-16) 05/09/18 05:30 BUN 63 mg/dL (7-18) H 05/09/18 05:30 Creatinine 7.6 mg/dL (0.7-1.3) H* 05/09/18 05:30 Creat Clearance w eGFR 7.27 (>60) 05/09/18 05:30 Calcium 8.2 mg/dL (8.5-10.1) L 05/09/18 05:30 Total Bilirubin 0.3 mg/dL (0.2-1.0) 05/05/18 06:00 AST 20 U/L (15-37) 05/05/18 06:00 ALT 27 U/L (12-78) 05/05/18 06:00 Alkaline Phosphatase 113 U/L (45-117) 05/05/18 06:00 Total Protein 5.7 g/dl (6.4-8.2) L 05/05/18 06:00 Albumin 1.9 g/dl (3.4-5.0) L 05/05/18 06:00 A/P: 62 year old man with end stage renal disease initiated on hemodialysis during this admission. Hemodialysis today as per the dialysis orders. Would benefit from short term rehab. Problem List - Problems (1) Acute on chronic systolic (congestive) heart failure Code(s): I50.23 - ACUTE ON CHRONIC SYSTOLIC (CONGESTIVE) HEART FAILURE (2) End stage renal disease Assessment/Plan: Hemodialysis today as per the dialysis orders. Code(s): N18.6 - END STAGE RENAL DISEASE (3) Hypertensive cardiomyopathy Code(s): I11.9 - HYPERTENSIVE HEART DISEASE WITHOUT HEART FAILURE; I43 - CARDIOMYOPATHY IN DISEASES CLASSIFIED ELSEWHERE Qualifiers: Heart failure presence: with heart failure Qualified Code(s): I11.0 - Hypertensive heart disease with heart failure; I43 - Cardiomyopathy in diseases classified elsewhere
[2018-05-09] MEDS: LIDOCAINE PATCH REMOVAL MC SCH ×2 (22:15→22:21)
[2018-05-09] MEDS: DONEPEZIL HCL 10 MG TABLET (FP) PO SCH (22:15)
[2018-05-09] MEDS: ATORVASTATIN CA 80 MG TABLET (FP) PO SCH (22:15)
[2018-05-10] MEDS: hydrALAZINE HCL 50 MG TABLET (FP) PO SCH ×2 (06:07→13:36)
[2018-05-10 06:36] LABS: BASO % 1.5 % (0-2.0); EOS % 1.9 % (0-4.5); HEMATOCRIT 28.9 % (35.4-49); HEMOGLOBIN 9.4 GM/dL (11.7-16.9); LYMPH % 11.1 % (8-40); MCH 28.7 pg (25.7-33.7); MCHC 32.7 g/dl (32.0-35.9); MEAN CELL VOLUME 87.8 fl (80-96); MEAN PLT VOLUME 8.5 fl (7.5-11.1); MONO % 10.2 % (3.8-10.2); NEUT % 75.3 % (42.8-82.8); PLATELET COUNT 297 K/MM3 (134-434); RBC 3.29 M/mm3 (4.00-5.60); RDW 18.1 % (11.9-15.9); WHITE BLOOD COUNT 8.6 K/mm3 (4.0-10.0)
[2018-05-10 06:37] LABS: INR 2.14 (0.82-1.09); PROTHROMBIN TIME (PATIENT) 24.2 SEC (9.7-13.0)
[2018-05-10 06:54] LABS: CHLORIDE 100 mmol/L (98-107); POTASSIUM 3.8 mmol/L (3.5-5.1); SODIUM 139 mmol/L (136-145)
[2018-05-10 07:02] LABS: ANION GAP 9 (8-16); BLOOD UREA NITROGEN 38 mg/dL (7-18); CALCIUM 8.1 mg/dL (8.5-10.1); CO2 30 mmol/L (21-32); CREATININE 5.1 mg/dL (0.7-1.3); GLUCOSE,RANDOM 95 mg/dL (74-106); MAGNESIUM 1.7 mg/dL (1.8-2.4)
[2018-05-10] MEDS: TAMSULOSIN HCL 0.4 MG CAP.ER.24H (FP) PO SCH (07:58)
[2018-05-10] MEDS: CALCIUM ACETATE 667 MG CAPSULE (FP) PO SCH ×2 (07:58→12:30)
--- NOTE | 2018-05-10 08:17 | PN ---
Teaching Attending Note Name of Resident: Hannah Mills ATTENDING PHYSICIAN STATEMENT I saw and evaluated the patient. I reviewed the resident's note and discussed the case with the resident. I agree with the resident's findings and plan as documented with exceptions below. SUBJECTIVE: Patient seen and examined. No complaints, overall feels well. OBJECTIVE: Vital Signs Period Temp Pulse Resp BP Sys/Wyatt Pulse Ox Last 24 Hr 98.4 F-99.6 F 70-85 17-18 131-172/65-97 98-99 Intake & Output 05/07/18 05/08/18 05/09/18 05/10/18 23:59 23:59 23:59 23:59 Intake Total 860 360 370 10 Output Total 500 400 150 Balance 360 -40 220 10 Weight 143 lb 9.6 oz 140 lb 143 lb 0.4 oz 140 lb 6.4 oz General: in bed in no acute distress Chest: decreased effort but no rales or wheezing Abdomen:soft, NT, ND Home Medications Medication Instructions Recorded Amlodipine Besylate [Norvasc -] 10 mg PO DAILY 04/22/18 Aspirin Coated [Ecotrin -] 81 mg PO DAILY 04/22/18 Donepezil HCl [Aricept -] 10 mg PO DAILY 04/22/18 Hydralazine HCl 50 mg PO TID 04/22/18 Tamsulosin HCl [Flomax -] 24 mg PO DAILY 04/22/18 Atorvastatin Calcium 80 mg PO DAILY 04/23/18 Calcium Acetate [Phoslo -] 667 mg PO TIDCM 04/23/18 Isosorbide Mononitrate [Isosorbide 60 mg PO DAILY 04/23/18 Mononitrate ER] Sodium Bicarbonate - 10 gr PO TID 04/23/18 Clopidogrel Bisulfate [Plavix] 75 mg PO DAILY 05/03/18 Cyproheptadine [Periactin -] 4 mg PO DAILY 05/03/18 Furosemide [Lasix] 80 mg PO DAILY 05/03/18 Calcium Acetate [Phoslo -] 1,334 mg PO TIDCM #180 capsule 05/08/18 Carvedilol 12.5 mg PO DAILY 05/08/18 Ceftriaxone [Rocephin -] 1 gm IVPB ASDIR #6 vial 05/08/18 Donepezil HCl 10 mg PO DAILY 05/08/18 Doxycycline Hyclate [Vibramycin -] 100 mg PO BID@1000,1800 #28 capsule 05/08/18 Lidocaine 5% Patch [Lidoderm -] 1 patch TP DAILY #7 patch 05/08/18 Lidocaine Patch Removal [Lidoderm 1 each MC DAILY@2200 each 05/08/18 Patch Removal] Pantoprazole Sodium [Protonix -] 20 mg PO DAILY #30 tablet.ec 05/08/18 Polyethylene Glycol 3350 [Miralax 17 gm PO DAILY #10 bottle 05/08/18 119 gm Btl -] Sacubitril/Valsartan [Entresto 97 1 tab PO BID tablet 05/08/18 mg-103 mg Tablet] Warfarin Na [Coumadin -] 5 mg PO DAILY@1800 #14 tablet 05/08/18 Active Medications Acetaminophen (Tylenol -) 650 mg PO Q6H PRN PRN Reason: PAIN Last Admin: 05/08/18 21:54 Dose: 650 mg Atorvastatin Calcium (Lipitor -) 80 mg PO [facility] Last Admin: 05/09/18 22:15 Dose: 80 mg Calcium Acetate (Phoslo -) 1,334 mg PO TIDCM [facility] Last Admin: 05/10/18 07:58 Dose: 1,334 mg Carvedilol (Coreg -) 25 mg PO BID [facility] Last Admin: 05/09/18 22:15 Dose: 25 mg Docusate Sodium (Colace -) 100 mg PO DAILY [facility] Last Admin: 05/09/18 09:45 Dose: 100 mg Donepezil HCl (Aricept -) 10 mg PO [facility] Last Admin: 05/09/18 22:15 Dose: 10 mg Doxycycline Hyclate (Vibramycin -) 100 mg PO BID@1000,1800 [facility] Last Admin: 05/09/18 17:27 Dose: 100 mg Hydralazine HCl (Apresoline -) 50 mg PO TID [facility] Last Admin: 05/10/18 06:07 Dose: 50 mg Ceftriaxone Sodium 1 gm/ (Dextrose) 50 mls @ 100 mls/hr IVPB DAILY [facility]; Protocol Last Admin: 05/09/18 09:45 Dose: 100 mls/hr Isosorbide Mononitrate (Imdur -) 60 mg PO DAILY [facility] Last Admin: 05/09/18 09:45 Dose: 60 mg Lidocaine (Lidoderm Patch -) 1 patch TP DAILY [facility] Last Admin: 05/09/18 09:45 Dose: 1 patch Lidocaine HCl (Xylocaine 2% Viscous Oral -) 20 ml MM Q6H PRN PRN Reason: ORAL PAIN/MOUTH SORES Metoprolol Tartrate (Lopressor Injection -) 5 mg IVPUSH Q4H PRN PRN Reason: HYPERTENSION Miscellaneous (Lidoderm Patch Removal) 1 each MC DAILY@2200 [facility] Last Admin: 05/09/18 22:21 Dose: Not Given Pantoprazole Sodium (Protonix -) 20 mg PO DAILY [facility] Last Admin: 05/09/18 09:45 Dose: 20 mg Polyethylene Glycol (Miralax (For Daily Use) -) 17 gm PO DAILY [facility] Last Admin: 05/09/18 11:18 Dose: Not Given Sacubitril/Valsartan (Entresto 97 Mg-103 Mg Tablet) 1 tab PO BID [facility] Last Admin: 05/09/18 22:16 Dose: 1 tab Tamsulosin HCl (Flomax -) 0.4 mg PO DAILY@0830 [facility] Last Admin: 05/10/18 07:58 Dose: 0.4 mg Laboratory Results - last 24 hr 05/10/18 05/10/18 05/10/18 05:30 05:30 05:30 WBC 8.6 RBC 3.29 L Hgb 9.4 L Hct 28.9 L MCV 87.8 MCH 28.7 MCHC 32.7 RDW 18.1 H Plt Count 297 MPV 8.5 Absolute Neuts (auto) 6.4 Neutrophils % 75.3 Lymphocytes % 11.1 Monocytes % 10.2 Eosinophils % 1.9 Basophils % 1.5 Nucleated RBC % 0 PT with INR 24.20 H INR 2.14 H Sodium 139 Potassium 3.8 Chloride 100 Carbon Dioxide 30 Anion Gap 9 BUN 38 H D Creatinine 5.1 H Creat Clearance w eGFR 11.51 Random Glucose 95 D Calcium 8.1 L Magnesium 1.7 L ASSESSMENT AND PLAN: 62yo M with PMH CKD (has refused HD in the past), and CAD presenting with progressively worsening shortness of breath and altered mental status. in the ER was found to have SBP 240. anabelle larkin was activated in the ER -Acute toxic metabolic encephalopathy, likely uremic + hypertensive, s/p emergent HD, now with permacath -Acute hypoxic respiratory failure, suspect fluid overload from ESRD +/- ARDS, resolved, extubated doing well. -Hypertensive emergency, resolved -Acute on CKD stage V -Elevated troponin, suspect demand ischemia from above with recurrent chest pain , now resolved, downtrending troponin -Paroxysmal Atrial fibrillation -Acute on chronic anemia with trace stool occult blood -Sepsis with Strep bacteremia, Suspect PNA Klebsiella/MRSA -Left knee swelling/pain, Suspected hematoma per orthopedic -Normocytic anemia, suspect from CKD/dilutional -Dementia -CAD -Hyperphosphatemia, from ESRD -Hypomagnesemia Plan: Cefepime/vanco started 04/25, changed to ceftriaxone/doxy 0n 05/03, antibiotic day 14 today. ID input noted, doxycycline for 1 month total. Continue for additional 15 days. HD via permacath. Outpatient follow up for definitive access. HD per renal. FOBT trace pos. GI input noted. H/h stable, no gross evidence of bleed. Discussed with Dr. Mujica. patient was changed to coumadin from plavix outpatient. Recommend continuation of coumadin and no indication for adding additional anti- platelets currently as discussed. Coumadin 4 mg daily with INR check tomorrow. Coreg/imdur/entresto/hydralazine. HD per renal. [facility] SNF arranged. Plan for d/c to SNF today with outpatient GI/cardiology follow up. Plan discussed with patient in detail, all questions answered.
[2018-05-10] MEDS ORDERED: MAGNESIUM SULF 50% (8.12 MEQ/2 ML-1 GM VIAL) IVPB ONE (08:18)
[2018-05-10 09:04] VITALS: BP 145/67; PULSE 75; TEMP 98.9
[2018-05-10] MEDS ORDERED: MAGNESIUM SULFATE IN WATER 2 GM/50 ML IVPB IVPB ONE (09:15)
[2018-05-10] MEDS ORDERED: PT OWN MED DRAWER 7, Y5N ONE (10:07)
[2018-05-10] MEDS: POLYETHYLENE GLYCOL 3350 119 GM BTL PO SCH (10:09)
[2018-05-10] MEDS: DOCUSATE SODIUM 100 MG CAPSULE (FP) PO SCH (10:09)
[2018-05-10] MEDS: PANTOPRAZOLE 20 MG TABLET (FP) PO SCH (10:09)
[2018-05-10] MEDS: ISOSORBIDE MONONITRATE 60 MG TAB.SR.24H (FP) PO SCH (10:09)
[2018-05-10] MEDS: CARVEDILOL 25 MG TABLET (FP) PO SCH (10:09)
[2018-05-10] MEDS: SACUBITRIL/VALSARTAN 97 MG-103 MG TABLET PO SCH (10:10)
--- NOTE | 2018-05-10 11:01 | PN ---
Progress Note, Physician History of Present Illness: OOB to chair, denies chest pain or dyspnea. Remains SR with PAC. - Current Medication List Current Medications: Active Medications Acetaminophen (Tylenol -) 650 mg PO Q6H PRN PRN Reason: PAIN Last Admin: 05/08/18 21:54 Dose: 650 mg Atorvastatin Calcium (Lipitor -) 80 mg PO HS [facility] Last Admin: 05/09/18 22:15 Dose: 80 mg Calcium Acetate (Phoslo -) 1,334 mg PO TIDCM [facility] Last Admin: 05/10/18 07:58 Dose: 1,334 mg Carvedilol (Coreg -) 25 mg PO BID [facility] Last Admin: 05/10/18 10:09 Dose: 25 mg Docusate Sodium (Colace -) 100 mg PO DAILY [facility] Last Admin: 05/10/18 10:09 Dose: 100 mg Donepezil HCl (Aricept -) 10 mg PO HS [facility] Last Admin: 05/09/18 22:15 Dose: 10 mg Hydralazine HCl (Apresoline -) 50 mg PO TID [facility] Last Admin: 05/10/18 06:07 Dose: 50 mg Isosorbide Mononitrate (Imdur -) 60 mg PO DAILY [facility] Last Admin: 05/10/18 10:09 Dose: 60 mg Lidocaine (Lidoderm Patch -) 1 patch TP DAILY [facility] Last Admin: 05/09/18 09:45 Dose: 1 patch Lidocaine HCl (Xylocaine 2% Viscous Oral -) 20 ml MM Q6H PRN PRN Reason: ORAL PAIN/MOUTH SORES Metoprolol Tartrate (Lopressor Injection -) 5 mg IVPUSH Q4H PRN PRN Reason: HYPERTENSION Miscellaneous (Lidoderm Patch Removal) 1 each MC DAILY@2200 [facility] Last Admin: 05/09/18 22:21 Dose: Not Given Pantoprazole Sodium (Protonix -) 20 mg PO DAILY [facility] Last Admin: 05/10/18 10:09 Dose: 20 mg Polyethylene Glycol (Miralax (For Daily Use) -) 17 gm PO DAILY [facility] Last Admin: 05/10/18 10:09 Dose: 17 grams Sacubitril/Valsartan (Entresto 97 Mg-103 Mg Tablet) 1 tab PO BID [facility] Last Admin: 05/10/18 10:10 Dose: 1 tab Tamsulosin HCl (Flomax -) 0.4 mg PO DAILY@0830 [facility] Last Admin: 05/10/18 07:58 Dose: 0.4 mg Warfarin Sodium (Coumadin -) 4 mg PO DAILY@1800 [facility] - Objective Vital Signs: Vital Signs Temperature 98.9 F 05/10/18 08:59 Pulse Rate 75 05/10/18 08:59 Respiratory Rate 18 05/10/18 08:59 Blood Pressure 145/67 05/10/18 08:59 O2 Sat by Pulse Oximetry (%) 99 05/09/18 21:00 Constitutional: Yes: No Distress, Calm, Thin Neck: Yes: Supple Cardiovascular: Yes: Regular Rate and Rhythm Respiratory: Yes: Regular, Diminished, On Nasal O2 Gastrointestinal: Yes: Normal Bowel Sounds, Soft Edema: No Labs: CBC, BMP 05/10/18 05:30 05/10/18 05:30 INR, PTT INR 2.14 (0.82-1.09) H 05/10/18 05:30 - ....Imaging EKG: Report Reviewed (Tele: [facility]) Problem List - Problems (1) Acute on chronic systolic (congestive) heart failure Code(s): I50.23 - ACUTE ON CHRONIC SYSTOLIC (CONGESTIVE) HEART FAILURE (2) Hypertensive cardiomyopathy Code(s): I11.9 - HYPERTENSIVE HEART DISEASE WITHOUT HEART FAILURE; I43 - CARDIOMYOPATHY IN DISEASES CLASSIFIED ELSEWHERE Qualifiers: Heart failure presence: with heart failure Qualified Code(s): I11.0 - Hypertensive heart disease with heart failure; I43 - Cardiomyopathy in diseases classified elsewhere (3) Hyperlipidemia Code(s): E78.5 - HYPERLIPIDEMIA, UNSPECIFIED Qualifiers: Hyperlipidemia type: pure hypercholesterolemia Qualified Code(s): E78.00 - Pure hypercholesterolemia, unspecified; E78.0 - Pure hypercholesterolemia (4) Ischemic cardiomyopathy Code(s): I25.5 - ISCHEMIC CARDIOMYOPATHY (5) End stage renal disease Code(s): N18.6 - END STAGE RENAL DISEASE (6) Old inferolateral myocardial infarction Code(s): I25.2 - OLD MYOCARDIAL INFARCTION (7) Anemia Code(s): D64.9 - ANEMIA, UNSPECIFIED Qualifiers: Anemia type: due to chronic kidney disease Assessment/Plan January 17, 2015 R&LHc @ [facility]: 3 vessel CAD with [employer]ACING [employer] RVA and OM2, elevated right and left heart pressures January 19, 2015 Echo: Mod LVH moderate decreased LVEF 40% with AK inferior and inferoseptal, mild AR, MR, mild LAE January 22, 2015 Lexiscan Myoview: Dense scar inferior wall, large lateral ischemia, inferolateral AK, LVEF 30% January 21, 2015 Rest and redistribution Thallium: Scar involving entire inferior wall, basal to mid inferolateral, basal inferoseptal, and apex, no significant hibernating myocardiaum, dilated LV with severely decreased LVEF 27% April 23, 2018 Echo: Moderately dilated with moderate decreased LV fxn, mild decreased RV fxn, mild AR, mild LAE 1. Acute on chronic diastolic/systolic failure and pulmonary edema referable to 2. Hypertensive urgency in context of dietary/medical indiscretion (previously declined HD) 3. Post acute hypoxic respiratory failure 4. CAD s/p RI, demand ischemic injury 5. Ischemic cardiomyopathy (moderate) 6. Acute on Chronic Renal Failure requiring HD 7. Paroxysmal atrial fibrillation with therapeutic INR 8. Resolved Altered Mental Status - Hypertensive vs Uremic Encephalopathy 9. Anemia of CKD 10. PNA - Klebsiella/MRSA, Streptococcal bacteremia P:1. Volume removal via UF/HD via left PC 2. Continue carvedilol 25 bid, hydralazine 50 tid, Imdur 60 qd (BiDil), Lipitor 80 qd, and Entresto 97/103 bid 3. Continue coumadin per INR 2-3 with GI protection, no concomitant antiplatelets warranted as CAD is stable 4. O2 to maintain saturation, completed abx course per ID, PT as tolerated->SNF 5. Pt to f/u with Dr. Jeannette Kaiser at [facility] upon d/c
[2018-05-10] MEDS: LIDOCAINE 5% TOPICAL PATCH TP SCH (12:30)
--- NOTE | 2018-05-10 12:45 | PN ---
Progress Note, Physician History of Present Illness: patient stable no complaints doing well - Current Medication List Current Medications: Active Medications Acetaminophen (Tylenol -) 650 mg PO Q6H PRN PRN Reason: PAIN Last Admin: 05/08/18 21:54 Dose: 650 mg Atorvastatin Calcium (Lipitor -) 80 mg PO HS [facility] Last Admin: 05/09/18 22:15 Dose: 80 mg Calcium Acetate (Phoslo -) 1,334 mg PO TIDCM [facility] Last Admin: 05/10/18 12:30 Dose: 1,334 mg Carvedilol (Coreg -) 25 mg PO BID [facility] Last Admin: 05/10/18 10:09 Dose: 25 mg Docusate Sodium (Colace -) 100 mg PO DAILY [facility] Last Admin: 05/10/18 10:09 Dose: 100 mg Donepezil HCl (Aricept -) 10 mg PO HS [facility] Last Admin: 05/09/18 22:15 Dose: 10 mg Hydralazine HCl (Apresoline -) 50 mg PO TID [facility] Last Admin: 05/10/18 06:07 Dose: 50 mg Isosorbide Mononitrate (Imdur -) 60 mg PO DAILY [facility] Last Admin: 05/10/18 10:09 Dose: 60 mg Lidocaine (Lidoderm Patch -) 1 patch TP DAILY [facility] Last Admin: 05/10/18 12:30 Dose: 1 patch Lidocaine HCl (Xylocaine 2% Viscous Oral -) 20 ml MM Q6H PRN PRN Reason: ORAL PAIN/MOUTH SORES Metoprolol Tartrate (Lopressor Injection -) 5 mg IVPUSH Q4H PRN PRN Reason: HYPERTENSION Miscellaneous (Lidoderm Patch Removal) 1 each MC DAILY@2200 [facility] Last Admin: 05/09/18 22:21 Dose: Not Given Pantoprazole Sodium (Protonix -) 20 mg PO DAILY [facility] Last Admin: 05/10/18 10:09 Dose: 20 mg Polyethylene Glycol (Miralax (For Daily Use) -) 17 gm PO DAILY [facility] Last Admin: 05/10/18 10:09 Dose: 17 grams Sacubitril/Valsartan (Entresto 97 Mg-103 Mg Tablet) 1 tab PO BID [facility] Last Admin: 05/10/18 10:10 Dose: 1 tab Tamsulosin HCl (Flomax -) 0.4 mg PO DAILY@0830 [facility] Last Admin: 05/10/18 07:58 Dose: 0.4 mg Warfarin Sodium (Coumadin -) 4 mg PO DAILY@1800 [facility] - Objective Vital Signs: Vital Signs Temperature 98.9 F 05/10/18 08:59 Pulse Rate 75 05/10/18 08:59 Respiratory Rate 18 05/10/18 08:59 Blood Pressure 145/67 05/10/18 08:59 O2 Sat by Pulse Oximetry (%) 99 05/09/18 21:00 Constitutional: Yes: No Distress, Calm Cardiovascular: Yes: Regular Rate and Rhythm Respiratory: Yes: Regular, CTA Bilaterally Gastrointestinal: Yes: Normal Bowel Sounds, Soft Musculoskeletal: Yes: WNL Extremities: Yes: WNL Neurological: Yes: Alert, Oriented Psychiatric: Yes: Alert, Oriented Labs: CBC, BMP 05/10/18 05:30 05/10/18 05:30 INR, PTT INR 2.14 (0.82-1.09) H 05/10/18 05:30 Assessment/Plan Problem List - Problems (1) Acute on chronic systolic (congestive) heart failure Code(s): I50.23 - ACUTE ON CHRONIC SYSTOLIC (CONGESTIVE) HEART FAILURE (2) CAD (coronary artery disease) Code(s): I25.10 - ATHSCL HEART DISEASE OF [place] CORONARY ARTERY W/O ANG PCTRS Qualifiers: Coronary Disease-Associated Artery/Lesion type: [place] artery [place] vs. transplanted heart: [place] heart Associated angina: without angina Qualified Code(s): I25.10 - Atherosclerotic heart disease of [place] coronary artery without angina pectoris (3) End stage renal disease Code(s): N18.6 - END STAGE RENAL DISEASE (4) Hyperlipidemia Code(s): E78.5 - HYPERLIPIDEMIA, UNSPECIFIED Qualifiers: Hyperlipidemia type: pure hypercholesterolemia Qualified Code(s): E78.00 - Pure hypercholesterolemia, unspecified; E78.0 - Pure hypercholesterolemia (5) Hypertensive cardiomyopathy Code(s): I11.9 - HYPERTENSIVE HEART DISEASE WITHOUT HEART FAILURE; I43 - CARDIOMYOPATHY IN DISEASES CLASSIFIED ELSEWHERE Qualifiers: Heart failure presence: with heart failure Qualified Code(s): I11.0 - Hypertensive heart disease with heart failure; I43 - Cardiomyopathy in diseases classified elsewhere (6) Ischemic cardiomyopathy Code(s): I25.5 - ISCHEMIC CARDIOMYOPATHY (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 male admitted with SOB/Acute respiratory failure, Pulmonary congestion, Fever, with Femoral catheter in place Sepsis PNA - Klebsiella/MRSA Streptococcal bacteremia Persistent Fever Lt knee pain/mild swelling Renal Failure - now on HD CHF/Pulm edema Hypertensive urgency CAD s/p MA s/p hypoxic resp failure plan continue current abx patient improving incentive caleb rest as per the team doxy for a month ceftriaxone for 2 weeks
[2018-05-10] MEDS ORDERED: DOXYCYCLINE HYCLATE 100 MG CAPSULE PO ONE (12:50)
--- NOTE | 2018-05-10 13:50 | DS ---
Physical Exam: SUBJECTIVE: Patient seen and examined at bedside. Says he feels much better overall and has no new complaints. Denies fevers, chills, chest pain, SOB, Abdominal pain, nausea, vomiting. OBJECTIVE: Vital Signs Period Temp Pulse Resp BP Sys/Wytat Pulse Ox Last 24 Hr 98.4 F-99.6 F 70-85 18-18 131-172/65-97 99 PHYSICAL EXAM GENERAL: The patient is awake, alert, and fully oriented, in no acute distress. LUNGS: Breath sounds equal, clear to auscultation bilaterally, no wheezes, no crackles HEART: regular rate and rhythm, S1, S2 without murmur, rub or gallop. CHEST: No tenderness, permacath present ABDOMEN: Soft, nontender, nondistended, normoactive bowel sounds LABS Laboratory Results - last 24 hr 05/07/18 05/10/18 05/10/18 10:15 05:30 05:30 WBC 8.6 RBC 3.29 L Hgb 9.4 L Hct 28.9 L MCV 87.8 MCH 28.7 MCHC 32.7 RDW 18.1 H Plt Count 297 MPV 8.5 Absolute Neuts (auto) 6.4 Neutrophils % 75.3 Lymphocytes % 11.1 Monocytes % 10.2 Eosinophils % 1.9 Basophils % 1.5 Nucleated RBC % 0 PT with INR 24.20 H INR 2.14 H Sodium Potassium Chloride Carbon Dioxide Anion Gap BUN Creatinine Creat Clearance w eGFR Random Glucose Calcium Magnesium Blood Type O POSITIVE Antibody Screen Negative Crossmatch See Detail 05/10/18 05:30 WBC RBC Hgb Hct MCV MCH MCHC RDW Plt Count MPV Absolute Neuts (auto) Neutrophils % Lymphocytes % Monocytes % Eosinophils % Basophils % Nucleated RBC % PT with INR INR Sodium 139 Potassium 3.8 Chloride 100 Carbon Dioxide 30 Anion Gap 9 BUN 38 H D Creatinine 5.1 H Creat Clearance w eGFR 11.51 Random Glucose 95 D Calcium 8.1 L Magnesium 1.7 L Blood Type Antibody Screen Crossmatch Microbiology 04/26/18 16:30 Sputum - Expectorated Gram Stain - Final 04/26/18 16:30 Sputum - Expectorated Sputum Culture - Final Beta Hemolytic Strep 04/26/18 17:00 Blood - Peripheral Venous Blood Culture - Final NO GROWTH AFTER 5 DAYS INCUBATION 04/26/18 16:40 Blood - Peripheral Venous Blood Culture - Final NO GROWTH AFTER 5 DAYS INCUBATION 04/30/18 06:20 Urine - Urine Clean Catch Urine Culture - Final NO GROWTH OBTAINED 04/26/18 16:00 Urine - Urine Mcbride Urine Culture - Final NO GROWTH OBTAINED 04/25/18 10:24 Blood - Peripheral Venous Blood Culture - Final Streptococcus Constellatus 04/25/18 10:40 Blood - Peripheral Venous Blood Culture - Final Streptococcus Constellatus 04/25/18 11:10 Sputum - Endotrachea Suction/Ventilator Gram Stain - Final 04/25/18 11:10 Sputum - Endotrachea Suction/Ventilator Sputum Culture - Final Klebsiella Pneumoniae Mr S Aureus 04/25/18 10:10 Urine - Urine Mcbride Urine Culture - Final NO GROWTH OBTAINED 04/22/18 18:10 Urine - Urine Mcbride Urine Culture - Final NO GROWTH OBTAINED Active Medications Acetaminophen (Tylenol -) 650 mg PO Q6H PRN PRN Reason: PAIN Last Admin: 05/08/18 21:54 Dose: 650 mg Atorvastatin Calcium (Lipitor -) 80 mg PO [facility] Last Admin: 05/09/18 22:15 Dose: 80 mg Calcium Acetate (Phoslo -) 1,334 mg PO TIDCM [facility] Last Admin: 05/10/18 07:58 Dose: 1,334 mg Carvedilol (Coreg -) 25 mg PO BID [facility] Last Admin: 05/09/18 22:15 Dose: 25 mg Docusate Sodium (Colace -) 100 mg PO DAILY [facility] Last Admin: 05/09/18 09:45 Dose: 100 mg Donepezil HCl (Aricept -) 10 mg PO [facility] Last Admin: 05/09/18 22:15 Dose: 10 mg Doxycycline Hyclate (Vibramycin -) 100 mg PO BID@1000,1800 [facility] Last Admin: 05/09/18 17:27 Dose: 100 mg Hydralazine HCl (Apresoline -) 50 mg PO TID [facility] Last Admin: 05/10/18 06:07 Dose: 50 mg Ceftriaxone Sodium 1 gm/ (Dextrose) 50 mls @ 100 mls/hr IVPB DAILY [facility]; Protocol Last Admin: 05/09/18 09:45 Dose: 100 mls/hr Isosorbide Mononitrate (Imdur -) 60 mg PO DAILY [facility] Last Admin: 05/09/18 09:45 Dose: 60 mg Lidocaine (Lidoderm Patch -) 1 patch TP DAILY [facility] Last Admin: 05/09/18 09:45 Dose: 1 patch Lidocaine HCl (Xylocaine 2% Viscous Oral -) 20 ml MM Q6H PRN PRN Reason: ORAL PAIN/MOUTH SORES Metoprolol Tartrate (Lopressor Injection -) 5 mg IVPUSH Q4H PRN PRN Reason: HYPERTENSION Miscellaneous (Lidoderm Patch Removal) 1 each MC DAILY@2200 [facility] Last Admin: 05/09/18 22:21 Dose: Not Given Pantoprazole Sodium (Protonix -) 20 mg PO DAILY [facility] Last Admin: 05/09/18 09:45 Dose: 20 mg Polyethylene Glycol (Miralax (For Daily Use) -) 17 gm PO DAILY [facility] Last Admin: 05/09/18 11:18 Dose: Not Given Sacubitril/Valsartan (Entresto 97 Mg-103 Mg Tablet) 1 tab PO BID [facility] Last Admin: 05/09/18 22:16 Dose: 1 tab Tamsulosin HCl (Flomax -) 0.4 mg PO DAILY@0830 [facility] Last Admin: 05/10/18 07:58 Dose: 0.4 mg HOSPITAL COURSE: Date of Admission:04/22/18 Date of Discharge: 05/10/18 Prehospital Course as per Dr. Michael Talamantes 62 yo M h/o CKD, CAD, [place] BIBEMS for unconsciousness and unresponsiveness. Per , patient was at his normal state of health till 1pm when all of sudden he felt short of breath and started gagging. Pt thought he was having heat stroke and poured cold water on his head. He then felt weak and tried to lie down then became unresponsive. Subsequently, he was brought in altered and confused. said the pt did not have fever, chills, chest pain, sob, n/v, urinary or bowel sx. Hospital Course Patient was admitted on 04/22 for Altered mental status, Acute toxic metabolic encephalopathy and hypertensive crisis. A Code [place] was activated in the ER and he was admitted to the ICU. The initial Head CT was negative and emergent Hemodialysis was done. Patient was sedated and intubated in the ICU. A labetalol drip was used to control blood pressure and eventually the patient transitioned to oral antihypertensives. On 04/26, patient was extubated. A LIJ Permacath was placed on 05/02 and his normal Hemodialysis schedule resumed. Patient was also diagnosed with Sepsis due to Strep Bactermia, with initial blood cultures growing Streptococcus Constellatus. Repeat blood cultures were negative. Patient completed a six day course of Cefepime and Vanocmycin, and transitioned to Ceftriaxone and Doxycycline for 14 days of total antibiotics. As per ID's recommendations, Patient will continue Doxycycline for an additional 15 days, thus 1 month total antibiotic coverage. Patient returned to his baseline and was discharged to a intermediate facility with outpatient GI and Cardiology follow up. Minutes to complete discharge: 40 Discharge Summary Reason For Visit: RENAL FAILURE, RESPIRATORY FAILURE Current Active Problems ARDS (adult respiratory distress syndrome) (Acute) Acute on chronic systolic (congestive) heart failure (Acute) CAD (coronary artery disease) (Acute) End stage renal disease (Acute) Hyperlipidemia (Acute) Hypertensive cardiomyopathy (Acute) Ischemic cardiomyopathy (Acute) Left anterior knee pain (Acute) Normocytic normochromic anemia (Acute) Renal failure (Acute) Respiratory failure (Acute) Toxic metabolic encephalopathy (Acute) Condition: Improved - Instructions Diet, Activity, Other Instructions: You were admitted with altered mental status and needed intubation You are needing oxygen with activity and sleep at night. COntinue 1-2 liters oxygen and taper off as tolerated. Continue antibiotic Levaquin for 15 days starting this afternoon, taking 1 daily until May 25. You were found to have elevated numbers with your kidneys (urea and creatinine) that required you starting dialysis while here You have now been set up for outpatient dialysis Follow up for a permanent venous access for dialysis in the future with your chemical plant manager and vascular surgeon. The contact information has been provided, please call them to make an appointment. You are not passing urine as much because of your reduced kidney function You were found to have very severe high blood pressure that was difficult to control except with several medications You were also noted to have irregular and fast heart beats You are on coumadin 4mg (Blood thinner) with INR of 2.14 today Please get an INR check tomorrow to determine dose of your coumadin It is very important to not miss any doses of the Coumadin Your blood counts were low and you needed to be transfused Please follow with a GI (stomach) doctor as an outpatient for endoscopy and colonoscopy Following Blood work: INR tomorrow 05/11/2018 and then per SNF MD CBC in 2-3 days You can use the Lidoderm patch for your knee pain You can use the Miralax to help with constipation You can use the Protonix to help reduce stomach pains You are being discharged to a intermediate facility where you will receive physical therapy and continue your dialysis You currently have temporary access- permacath for your dialysis A more permanent access for dialysis will be determined as you follow up with your chemical plant manager and vascular surgeon Outpatient renal artery doppler studies with your Garment Tag Stringer/Telephone Quotation Clerk If you feel any chest pain, trouble breathing, any discharge or redness around the permacath site, please call a doctor or come to the emergency department as soon as possible. Referrals: Brittany Lorenzo MD [Staff Physician] - Mansoor Olvera MD [Staff Physician] - 1 Week (GI- for colonsocopy) Clemencia Oleary MD [Staff Physician] - 1 Week Suraj Russ MD [Staff Physician] - 2 Weeks (For venous access for dialysis) Disposition: INTERMEDIATE FACILITY - Home Medications Comprehensive Discharge Medication List: Ambulatory Orders Amlodipine Besylate [Norvasc -] 10 mg PO DAILY 04/22/18 Donepezil HCl [Aricept -] 10 mg PO DAILY 04/22/18 Hydralazine HCl 50 mg PO TID 04/22/18 Tamsulosin HCl [Flomax -] 24 mg PO DAILY 04/22/18 Atorvastatin Calcium 80 mg PO DAILY 04/23/18 Calcium Acetate [Phoslo -] 667 mg PO TIDCM 04/23/18 Isosorbide Mononitrate [Isosorbide Mononitrate ER] 60 mg PO DAILY 04/23/18 Sodium Bicarbonate - 10 gr PO TID 04/23/18 Calcium Acetate [Phoslo -] 1,334 mg PO TIDCM #180 capsule 05/08/18 Lidocaine 5% Patch [Lidoderm -] 1 patch TP DAILY #7 patch 05/08/18 Lidocaine Patch Removal [Lidoderm Patch Removal] 1 each MC DAILY@2200 each 01/21 Pantoprazole Sodium [Protonix -] 20 mg PO DAILY #30 tablet.ec 05/08/18 Polyethylene Glycol 3350 [Miralax 119 gm Btl -] 17 gm PO DAILY #10 bottle Sacubitril/Valsartan [Entresto 97 mg-103 mg Tablet] 1 tab PO BID tablet Atorvastatin Ca [Lipitor] 80 mg PO HS tablet 05/10/18 Carvedilol [Coreg -] 25 mg PO BID #60 tablet 05/10/18 Levofloxacin [Levaquin] 500 mg PO DAILY #15 tablet 05/10/18 Warfarin Na [Coumadin -] 4 mg PO DAILY@1800 #60 tablet 05/10/18 This patient is new to me today: No Emergency Visit: No Critical Care patient: No - Discharge Referral Referred to [facility] No
[2018-05-10] MEDS ORDERED: WARFARIN NA 2 MG TABLET (UD) PO SCH (18:00)
[2018-05-10] MEDS ORDERED: DOXYCYCLINE HYCLATE 100 MG CAPSULE PO SCH (18:00)
== END 2018-05-10 14:14 | DRG 208 ==
LOC: JER 13:46 → JERBED 15:51 → JICU 15:51 → UNDOADMIN 15:51 → JICU 21:09 → J4W 05-01 17:00
PROVIDERS: ADMIT Internal Medicine; ATTEND Hospitalist
PROC: 5A1945Z Respiratory Ventilation, 24-96 Consecutive Hours (ICD-10-PCS; principal; 2018-04-22)
PROC: 0BH17EZ Insertion of Endotracheal Airway into Trachea, Via Natural or Artificial Opening (ICD-10-PCS; 2018-04-22)
PROC: 05HM33Z Insertion of Infusion Device into Right Internal Jugular Vein, Percutaneous Approach (ICD-10-PCS; 2018-04-28)
PROC: 05HN33Z Insertion of Infusion Device into Left Internal Jugular Vein, Percutaneous Approach (ICD-10-PCS; 2018-05-02)
PROC: B514ZZA Fluoroscopy of Left Jugular Veins, Guidance (ICD-10-PCS; 2018-05-02)
PROC: 05PYX3Z Removal of Infusion Device from Upper Vein, External Approach (ICD-10-PCS; 2018-05-02)
PROC: 30233N1 Transfusion of Nonautologous Red Blood Cells into Peripheral Vein, Percutaneous Approach (ICD-10-PCS; 2018-05-07)
PROC: 5A1D90Z Performance of Urinary Filtration, Continuous, Greater than 18 hours Per Day (ICD-10-PCS; 2018-05-09)
DX: J96.01 Acute respiratory failure with hypoxia (principal); G92 Toxic encephalopathy; A41.9 Sepsis, unspecified organism; I50.43 Acute on chronic combined systolic (congestive) and diastolic (congestive) heart failure; J18.9 Pneumonia, unspecified organism; N18.6 End stage renal disease; N17.9 Acute kidney failure, unspecified; I13.2 Hypertensive heart and chronic kidney disease with heart failure and with stage 5 chronic kidney disease, or end stage renal disease; I24.8 Other forms of acute ischemic heart disease; I67.4 Hypertensive encephalopathy; J80 Acute respiratory distress syndrome; E78.5 Hyperlipidemia, unspecified; I25.5 Ischemic cardiomyopathy; I48.0 Paroxysmal atrial fibrillation; D63.1 Anemia in chronic kidney disease; I16.0 Hypertensive urgency; F03.90 Unspecified dementia, unspecified severity, without behavioral disturbance, psychotic disturbance, mood disturbance, and anxiety; I25.10 Atherosclerotic heart disease of native coronary artery without angina pectoris; E83.39 Other disorders of phosphorus metabolism; E83.42 Hypomagnesemia; Z99.2 Dependence on renal dialysis; R07.9 Chest pain, unspecified; R41.82 Altered mental status, unspecified; I48.91 Unspecified atrial fibrillation; D50.9 Iron deficiency anemia, unspecified; N40.0 Benign prostatic hyperplasia without lower urinary tract symptoms; J02.9 Acute pharyngitis, unspecified; E87.70 Fluid overload, unspecified
CPT/HCPCS: 36415; 36430; 36600; 70450-TC; 71045-TC-FY; 73560-TC-LT-FY; 76000-TC-FY; 80048; 80053; 80307; 81003; 81015; 82272; 82465; 82550; 82553; 82728; 82803; 82962; 83540; 83550; 83718; 83721; 83735; 84100; 84478; 84484; 84550; 85025; 85027; 85610; 85730; 86704; 86706; 86708; 86850; 86900; 86901; 86922; 87040; 87070; 87086; 87186; 87205; 87340; 90670; 93005; 93010; 93306-TC; 94002; 94660; 94760; 94761; 97116-GP; 97162-GP; 99285-25; G0480; J0131; J0885; J1644; J1756; J7030; P9038; P9058

== ENCOUNTER 2018-07-18 10:13 | Day surgery (SDC) | payer OTHER ==
[2018-07-17 09:23] VITALS: BMI 33.5
[2018-07-18] MEDS ORDERED: ONDANSETRON 4 MG/2 ML VIAL IVPUSH PRN (11:59)
[2018-07-18] MEDS ORDERED: MIDAZOLAM HCL 2 MG/2 ML SINGLE DOSE VIAL ONE ×2 (12:16→12:22)
[2018-07-18] MEDS ORDERED: LIDOCAINE HCL 1%, 10 MG/ML (20ML VIAL) ONE (12:21)
[2018-07-18] MEDS ORDERED: PAPAVERINE HCL 30 MG/1 ML 10 ML VIAL NR ONE (12:21)
[2018-07-18] MEDS ORDERED: HEPARIN NA (PORCINE) 5,000 UNITS/ML 1ML VIAL ONE (12:21)
[2018-07-18] MEDS ORDERED: PROPOFOL 20 ML ONE (12:31)
[2018-07-18] MEDS ORDERED: LIDOCAINE HCL 1%, 10 MG/ML (20ML VIAL) NR ONE ×2 (12:37)
[2018-07-18] MEDS ORDERED: HEPARIN NA (PORCINE) 5,000 UNITS/ML 1ML VIAL SQ ONE (12:45)
[2018-07-18] MEDS ORDERED: POVIDONE-IODINE OINTMENT 10% - 28.4 GM TUBE ONE (12:51)
--- NOTE | 2018-07-18 13:48 | OP ---
Operative Note - Note: Operative Date: 07/18/18 Pre-Operative Diagnosis: ESRD on HD Operation: Creation AV fistula left arm Findings: Forearm cephalic vein occluded. Basilic vein patent Post-Operative Diagnosis: Same as Pre-op Surgeon: Suraj Russ Anesthesiologist/COMMUNICATIONS PROGRAM MANAGER: Kyaw Llanes Anesthesia: Fractional
--- NOTE | 2018-07-18 13:51 | HP ---
History & Physical Update - History Currently as noted:: 62 yo male with ESRD - Physical Currently as noted:: Left arm 2+ brachial pulse - Assessment Currently as noted:: ESRD, needs AV access - Plan Currently as noted:: Creation AV fistula left arm
--- NOTE | 2018-07-18 13:55 | SURG ---
Surgery Orthopaedic Doctor Note Orthopaedic Doctor: Johnathan Salas PA-C Date of Service: 07/18/18 Diagnosis: End stage renal failure Procedure: Left arm AV fistula formation I was present for the entirety of the operative procedure. For further detail, please refer to operative report.
[2018-07-18] MEDS ORDERED: oxyCODONE HCL 5 MG TABLET PO PRN (14:12)
[2018-07-18] MEDS ORDERED: ACETAMINOPHEN 325 MG TABLET (FP) PO PRN (14:12)
[2018-07-18 15:37] VITALS: BP 137/66; PULSE 75; TEMP 98.6
--- NOTE | 2018-07-30 20:00 | OP ---
DATE OF OPERATION: 07/18/2018 SURGEON: Suraj Russ MD PROCEDURE: Creation of arteriovenous fistula, left arm. PREOPERATIVE DIAGNOSIS: End-stage renal disease on hemodialysis. POSTOPERATIVE DIAGNOSIS: End-stage renal disease on hemodialysis. ANESTHESIA: Fractional. ANESTHESIOLOGIST: Kyaw Llanes MD OPERATIVE FINDINGS: The left arm cephalic vein was patent distally in the forearm but occluded proximally. The basilic vein was patent from the elbow proximally. OPERATIVE PROCEDURE: Following routine patient identification with side and site verification, intravenous sedation was established. The left arm was prepped with ChloraPrep. Timeout was performed. Next, 1% lidocaine was infiltrated in the skin over the cephalic vein proximal to the wrist. The vein was exposed through a short incision, and cautery was used for hemostasis. The vein was mobilized from the bed and ligated distally. It was incised and distended with heparin and papaverine solution. Attempts to pass a number 5 feeding tube proximally met with resistance in the mid-forearm. A number 3 Gely catheter was passed proximally and used to dilate the section of vein, but the 5 feeding tube still would not pass. Decision was made to abandon this vein. The vein was clipped, and the wound was closed with interrupted sutures of 3-0 Vicryl and skin jorge. Attention was then turned to the upper arm where a patent basilic vein had been identified preoperatively with duplex imaging. Lidocaine was infiltrated in the skin overlying the vein and was exposed through a short incision using cautery for hemostasis. The vein was mobilized from its bed. Side branches were ligated with silk ties and divided. The vein was ligated distally and incised. It was distended with heparin and papaverine solution. Number 5 and number 8 feeding tubes were passed proximally without resistance. The vein was filled with heparin solution, was occluded with a small bulldog clamp. The adjacent brachial artery was then exposed through a separate skin incision. The artery was mobilized and secured with vessel loops. Side branches were ligated and divided. The artery was then occluded with the vessel loops and opened with a longitudinal arteriotomy measuring approximately 6 mm. The vein was then freed and passed through a short subcutaneous tunnel to lie next to the artery. The vein was spatulated and anastomosed to the side of the artery with running sutures of 6-0 Prolene. Prior to completion of the suture line, the artery was allowed to back-bleed and flush, and the vein was flushed with saline solution. Suture line was completed and all vessels released. There was good flow through the anastomosis with a palpable thrill in the vein proximal. Surgicel was applied to the suture line. When hemostasis was achieved, the wounds were irrigated and closed with interrupted suture of 3-0 Vicryl and skin jorge. Sterile dressings were applied, and the patient was taken to the recovery room in stable condition. Nancy [id number] MTDD
== END 2018-07-18 16:25 | disposition home or self-care (01) ==
LOC: JASU-SURG 10:13
PROVIDERS: ATTEND Surgery
PROC: 03180ZD Bypass Left Brachial Artery to Upper Arm Vein, Open Approach (ICD-10-PCS; principal; 2018-07-18 12:00)
DX: I12.0 Hypertensive chronic kidney disease with stage 5 chronic kidney disease or end stage renal disease (principal); N18.6 End stage renal disease; Z99.2 Dependence on renal dialysis
CPT/HCPCS: 36415; 84132; 94760; J1644

== ENCOUNTER 2018-09-26 08:26 | Day surgery (SDC) | payer OTHER ==
[2018-09-25 10:54] VITALS: BMI 18.6
[2018-09-26] MEDS ORDERED: PROPOFOL 20 ML ONE ×4 (09:01)
[2018-09-26] MEDS ORDERED: LIDOCAINE HCL 2% JELLY (5 ML/TUBE) ONE (09:06)
[2018-09-26] MEDS ORDERED: LIDOCAINE 1% P/F 10 MG/ML VIAL PNB ONE (11:05)
[2018-09-26] MEDS ORDERED: BUPIVACAINE HCL/PF 0.5% (5MG/ML) 10 ML VIAL IJ ONE ×2 (11:06)
[2018-09-26] MEDS ORDERED: PAPAVERINE HCL 30 MG/1 ML 10 ML VIAL NR ONE (11:58)
[2018-09-26] MEDS ORDERED: LIDOCAINE HCL 1%, 10 MG/ML (20ML VIAL) ONE (12:32)
--- NOTE | 2018-09-26 13:03 | OP ---
Operative Note - Note: Operative Date: 09/26/18 Pre-Operative Diagnosis: ESRD on HD Operation: Revision of AV fistula left arm, venovenostomy Findings: Left arm brachial basilic fistula. Basilic vein was sclerotic proximally, deeper brachial vein was patent with adequate diameter Post-Operative Diagnosis: Same as Pre-op Surgeon: Suraj Russ Anesthesiologist/BALLOON DESIGN PRINTER: Kevin Fontanez Anesthesia: Fractional Estimated Blood Loss (mls): 50
[2018-09-26] MEDS ORDERED: ACETAMINOPHEN 325 MG TABLET (FP) PO PRN ×2 (13:10→13:11)
[2018-09-26] MEDS ORDERED: oxyCODONE HCL 5 MG TABLET PO PRN ×2 (13:10→13:11)
--- NOTE | 2018-09-26 13:16 | HP ---
Satellite H - Chief Complaint History of Present Illness: 62 year old man ESRD on HD with left arm basilic vein fistula that needs revision to use for dialysis. History Source: Patient - Past Medical History Allergies/Adverse Reactions: Allergies Allergy/AdvReac Type Severity Reaction Status Date / Time No Known Allergies Allergy Verified 09/26/18 08:40 METAL MOULDER: Yes: Dementia Cardiovascular: Yes: CAD, CHF, Hyperlipdemia, NC (2 years ago per patient) Renal/: Yes: Renal Failure - Current Medications Current Medications: Home Medications Medication Instructions Recorded Donepezil HCl [Aricept -] 10 mg PO DAILY 04/22/18 Tamsulosin HCl [Flomax -] 0.4 mg PO DAILY 04/22/18 Aspirin [Aspirin EC] 81 mg PO DAILY 07/17/18 Carvedilol [Coreg -] 12.5 mg PO BID 07/17/18 Lisinopril 5 mg PO HS 07/17/18 Acetaminophen 325 mg PO PRN PRN 09/25/18 Atorvastatin Ca [Lipitor] 80 mg PO HS 09/25/18 Betamethasone/Propylene Glyc 30 ml TP BID 09/25/18 [Betamethasone Dp Aug 0.05% Lot] Calcium Acetate [Phoslo -] 667 mg PO TIDCM 09/25/18 Satellite Physical Exam - Physical Examination Vital Signs: Vital Signs Period Temp Pulse Resp BP Sys/Wyatt Pulse Ox Last 24 Hr 97.6 F 72 18 137/61 General Appearance: Thin ENT: Clear Lung: Clear to auscultation Heart: Regular rate & rhythm Abdomen: Soft Extremities: No edema, Other (Left upper arm fistula thrill and bruit.) Satellite Impression/Plan - Impression/Plan Impression: ESRD. Basilic vein fistula for exteriorization Operative Procedure: Revision AVF Date to be Performed: 09/26/18
[2018-09-26 13:55] VITALS: TEMP 97.8
[2018-09-26] MEDS ORDERED: ACETAMINOPHEN 325 MG TABLET (FP) ONE (14:45)
[2018-09-26 15:47] VITALS: BP 140/74; PULSE 77
--- NOTE | 2018-09-26 16:18 | OP ---
DATE OF OPERATION: 09/26/2018 SURGEON: Suraj Russ MD PROCEDURE: Revision of left arm arteriovenous fistula with exteriorization and venovenostomy. PREOPERATIVE DIAGNOSIS: End-stage renal disease on hemodialysis. POSTOPERATIVE DIAGNOSIS: End-stage renal disease on hemodialysis. ANESTHESIA: Fractional. ANESTHESIOLOGIST: Kevin Fontanez MD OPERATIVE FINDINGS: The previous brachial artery to basilic vein fistula was patent. On exploration, the vein was found to be sclerotic and narrowed especially in its midsection. Deeper basilic vein/brachial vein was patent with a diameter of approximately 10 mm down to the mid to distal upper arm. OPERATIVE PROCEDURE: Following routine patient identification with side and site verification, intravenous sedation was established. The left arm was prepped with ChloraPrep. A timeout was performed. A mixture of 1% lidocaine and 0.5% Marcaine was infiltrated subcutaneously over the basilic vein which had been mapped preoperatively with duplex imaging. The vein was exposed through a long incision. Cautery was used for hemostasis. The vein was mobilized proximally up to the level of the arterial anastomosis, and then proximal dissection carried out over the vein. The vein was found to be sclerotic and small diameter partially due to spasm but was felt that this vein would not be ideal for AV fistula. In the upper third of the arm, the vein joined a deeper larger vein which was either another basilic vein or a brachial vein. This vein was then dissected distally and was found to be adequate diameter for the fistula but had multiple branches in the distal third of the arm where it became very small. Decision was made to use the distal end of the original fistula and the proximal 2/3 of the new vein for the resulting AV fistula. Therefore, veins were completely mobilized from their beds. They were incised and flushed with heparin saline solution. The proximal fistula was controlled with a small Bulldog clamp. The 2 ends of the vein were then anastomosis with 4-quadrant technique using 6-0 Prolene running sutures. Upon completion of the suture line a Gely catheter was passed distally through the end of the fistula into the artery and withdrawn, but no clot was retrieved. There was good flow through the anastomosis. Suture line was completed, and the vessels were released. There was a good pulse and thrill within the vein. A skin flap was then raised off of the muscle fascia on the anterior aspect of the arm. The fascia was then closed underneath the fistula with interrupted sutures of 3-0 Vicryl. The vein was placed at the apex of the pocket and tacked into place with some sutures of 3-0 Vicryl with care not to constrict the vein. The subcutaneous tissues were then approximated with interrupted suture of 3-0 Vicryl, and the skin was closed with jorge. Sterile dressings were applied, and patient was taken to the recovery room in stable condition. Nancy WAGNER/[id number]
== END 2018-09-26 15:05 | disposition home or self-care (01) ==
LOC: JASU-SURG 08:26
PROVIDERS: ATTEND Surgery
PROC: 051 Upper Veins, Bypass (ICD-10-PCS; principal; 2018-09-26 10:00)
DX: T82.858A Stenosis of other vascular prosthetic devices, implants and grafts, initial encounter (principal); I12.0 Hypertensive chronic kidney disease with stage 5 chronic kidney disease or end stage renal disease; N18.6 End stage renal disease; Z99.2 Dependence on renal dialysis
CPT/HCPCS: 94760

== ENCOUNTER 2019-08-16 14:55 | Inpatient (IN) | payer OTHER ==
--- NOTE | 2019-08-16 15:05 | PDOC ---
Rapid Medical Evaluation Time Seen by Provider: 08/16/19 15:01 Medical Evaluation: Allergies Allergy/AdvReac Type Severity Reaction Status Date / Time No Known Allergies Allergy Verified 09/26/18 08:40 08/16/19 15:02 Pt c/o: here for occluded avf, dr thornton is his surgeon, last HD on monday, pain to site now and developed left chest pain while staff was manipulating fistula, denies CP now Pt on brief exam: lcta, hr 83, bp 201/95 Pt ordered for: labs, cxr, ekg Pt to proceed to the ED Discharge Disposition - Diagnosis AV fistula occlusion, Chest pain - Discharge Dispostion Disposition: HOME Condition at time of disposition: Improved - Referrals - Patient Instructions - Post Discharge Activity
[2019-08-16 15:50] LABS: BASO % 0.9 % (0-2.0); EOS % 1.8 % (0-4.5); HEMATOCRIT 31.7 % (35.4-49); HEMOGLOBIN 10.5 GM/dL (11.7-16.9); LYMPH % 6.9 % (8-40); MCH 30.4 pg (25.7-33.7); MCHC 33.2 g/dl (32.0-35.9); MEAN CELL VOLUME 91.6 fl (80-96); MEAN PLT VOLUME 9.1 fl (7.5-11.1); MONO % 5.9 % (3.8-10.2); NEUT % 84.5 % (42.8-82.8); PLATELET COUNT 213 K/MM3 (134-434); RBC 3.46 M/mm3 (4.00-5.60); RDW 15.1 % (11.9-15.9); WHITE BLOOD COUNT 7.9 K/mm3 (4.0-10.0)
[2019-08-16 16:24] LABS: ALBUMIN 2.6 g/dl (3.4-5.0); BILIRUBIN,TOTAL 0.5 mg/dL (0.2-1); BLOOD UREA NITROGEN 82.2 mg/dL (7-18); CALCIUM 8.8 mg/dL (8.5-10.1)
[2019-08-16 16:28] LABS: CREATININE 11.1 mg/dL (0.55-1.3)
--- NOTE | 2019-08-16 16:52 | PDOC ---
History of Present Illness - General Chief Complaint: Dialysis Shunt Problem Stated Complaint: CHEST PAIN/DIALYSIS Time Seen by Provider: 08/16/19 15:01 History Source: Patient Exam Limitations: No Limitations - History of Present Illness Initial Comments: 08/16/19 16:52 Caleb Escobar is a 63M with PMH CAD, NH, ESRD (MWF, last done 2 days ago), and HTN presenting to the ED after a dialysis attempt today where his fistula was found to be obstructed and he experienced some chest pain. Patient gets MWF dialysis and has been getting this done with no issues this week, last session 2 days ago on Monday. Today attempted to dialyze but facility was unable to establish proper access, determined to be occluded. During attempted cannulization of the fistula, patient reported pain his arm and some central, non-radiating, non-exertional chest pain that resolved when attempt was ended. Otherwise denied palpitations, shortness of breath, abdominal pain, dizziness, abnormal weight gain. Has history of multiple NH, does not report any stenting done out of concern for his remaining kidney function, with one NH resulting in a 7 day coma. Is this a multiple visit Asthma Patient?: No Past History - Past Medical History Allergies/Adverse Reactions: Allergies Allergy/AdvReac Type Severity Reaction Status Date / Time No Known Allergies Allergy Verified 09/26/18 08:40 Home Medications: Ambulatory Orders Donepezil HCl [Aricept -] 10 mg PO DAILY 04/22/18 Tamsulosin HCl [Flomax -] 0.4 mg PO DAILY 04/22/18 Aspirin [Aspirin EC] 81 mg PO DAILY 07/17/18 Carvedilol [Coreg -] 12.5 mg PO BID 07/17/18 Lisinopril 5 mg PO HS 07/17/18 Atorvastatin Ca [Lipitor] 80 mg PO HS 09/25/18 Betamethasone/Propylene Glyc [Betamethasone Dp Aug 0.05% Lot] 30 ml TP BID 09/25 Calcium Acetate [Phoslo -] 667 mg PO TIDCM 09/25/18 Acetaminophen W/ Codeine #3 [Tylenol # 3 -] 1 tab PO Q6H PRN #20 tablet MDD 4 Anemia: Yes Asthma: No Cancer: No Cardiac Disorders: Yes (3 YRS AGO - "OPEN HEART SX") CVA: No COPD: No CHF: No Dementia: Yes Diabetes: No GI Disorders: No Disorders: Yes (kidney failure; [facility] M,W,F) HTN: Yes Hypercholesterolemia: No Liver Disease: No Seizures: No Thyroid Disease: No - Surgical History Abdominal Surgery: No Appendectomy: No Cardiac Surgery: No Cholecystectomy: No Lung Surgery: No Neurologic Surgery: No Orthopedic Surgery: No - Immunization History Immunization Up to Date: Yes - Psycho Social/Smoking Cessation Hx Smoking History: Never smoked Have you smoked in the past 12 months: No Hx Alcohol Use: No Drug/Substance Use Hx: No Substance Use Type: None Hx Substance Use Treatment: No Review of Systems - Review of Systems Able to Perform ROS?: Yes Constitutional: No: Chills, Fever HEENTM: Yes: Symptoms Reported. No: Recent change in vision, Hearing Loss Respiratory: No: Cough, Shortness of Breath, SOB at Rest Cardiac (ROS): Yes: Chest Pain. No: Edema, Irregular Heart Rate, Lightheadedness, Palpitations ABD/GI: No: Constipated, Diarrhea, Nausea, Vomiting : Yes: Symptoms Reported, Other (occluded L AV fistula) Musculoskeletal: No: Symptoms Reported Integumentary: No: Symptoms Reported Neurological: Yes: Numbness (L arm after manipulation during dialysis) Endocrine: No: Symptoms Reported Hematologic/Lymphatic: No: Symptoms Reported All Other Systems: Reviewed and Negative *Physical Exam - Vital Signs Last Vital Signs Temp Pulse Resp BP Pulse Ox 97.8 F 93 H 17 201/95 H 95 08/16/19 15:03 08/16/19 15:03 08/16/19 15:03 08/16/19 15:03 08/16/19 15:03 - Physical Exam General Appearance: Yes: Nourished, Appropriately Dressed, Thin. No: Apparent Distress HEENT: positive: EOMI, ERIBERTO, Normal ENT Inspection, Normal Voice, Symmetrical, Pharynx Normal, Hearing Grossly Normal. negative: Scleral Icterus (R), Scleral Icterus (L) Neck: positive: Trachea midline, Normal Thyroid, Supple. negative: Tender, Lymphadenopathy (R), Lymphadenopathy (L) Respiratory/Chest: positive: Lungs Clear, Normal Breath Sounds. negative: Chest Tender, Respiratory Distress, Accessory Muscle Use, Crackles, Rales, Rhonchi Cardiovascular: positive: Regular Rhythm, Regular Rate, Edema Gastrointestinal/Abdominal: positive: Normal Bowel Sounds, Flat, Soft, Protuberent. negative: Tender, Organomegaly, Pulsatile Mass, Guarding, Rebound Musculoskeletal: positive: Normal Inspection. negative: CVA Tenderness Extremity: positive: Normal Capillary Refill, Pedal Edema (BLE 2+ pitting edema) , Swelling, Other (has palpable fistula to the L upper arm with 2 bandages without bleeding/strikethrough, LUE moves spontaneouly with full ROM at wrist and elbow but ROM limited by pain at L shoulder, has Shiley placed in R femoral vein). negative: Tender, Cyanosis Integumentary: positive: Normal Color, Dry, Warm Neurologic: positive: Fully Oriented, Alert, Normal Mood/Affect, Normal Response. negative: Facial Droop, Sensory Deficit ED Treatment Course - LABORATORY CBC & Chemistry Diagram: 08/16/19 15:22 08/16/19 15:22 - ADDITIONAL ORDERS Additional order review: Laboratory Results 08/16/19 15:22 Sodium 140 Potassium 4.0 Chloride 103 Carbon Dioxide 23 Anion Gap 13 BUN 82.2 H Creatinine 11.1 H* Est GFR (CKD-EPI)AfAm 5.00 Est GFR (CKD-EPI)NonAf 4.31 Random Glucose 85 Calcium 8.8 Total Bilirubin 0.5 AST 20 ALT 34 Alkaline Phosphatase 140 H Creatine Kinase 275 Troponin I 0.14 H Total Protein 6.0 L Albumin 2.6 L 08/16/19 15:22 RBC 3.46 L MCV 91.6 MCHC 33.2 RDW 15.1 D MPV 9.1 Neutrophils % 84.5 H Lymphocytes % 6.9 L D Monocytes % 5.9 Eosinophils % 1.8 Basophils % 0.9 Medical Decision Making - Medical Decision Making 08/16/19 16:52 Claeb Escobar is a 63M with PMH CAD, NH, ESRD (MWF, last done 2 days ago), and HTN presenting to the ED after a dialysis attempt today where his fistula was found to be obstructed and he experienced some chest pain. Patient presents with occluded fistula, inability to get dialysis, and chest pain. Surgery team placed Shiley in R femoral vein while patient in ED, says they will likely revise L arm fistula tomorrow with Dr. Russ Per patient, Dr. Oleary told him that he will be getting dialysis tonight via the Shiley Patient presentation concerning for ACS vs. NH, and inability to get dialysis concerned about electrolyte abnormalities, although patient does not report any palpitations, chest pain at this time, numbness/tingling concerning for lyte abnormalities. Evaluated via: ECG CMP CBC CP T/S 08/16/19 18:33 Patient has Cr 11.1, but Na 140, K 4.0, Albumin 2.0, troponin 0.16 Cr elevation normal given no dialysis today, lytes all normal, will trend troponins No concerning metabolic findings at this time. Will admit to Med-Surg for dialysis and fistula revision tomorrow. 08/16/19 18:36 Patient at dialysis now. ECG show sinus rhythm with occasional PVCs, no acute ischemic changes, HR 91 Qtc 484 08/16/19 19:25 Discussed admission to Tele under Dr. Mathew with Dr. Gomez. Discharge - Discharge Information Problems reviewed: Yes Clinical Impression/Diagnosis: AV fistula occlusion Qualifiers: Encounter type: initial encounter Qualified Code(s): T82.898A - Other specified complication of vascular prosthetic devices, implants and grafts, initial encounter Chest pain Qualifiers: Chest pain type: unspecified Qualified Code(s): R07.9 - Chest pain, unspecified Condition: Stable Disposition: HOME - Admission Yes - Follow up/Referral - Patient Discharge Instructions - Post Discharge Activity
--- NOTE | 2019-08-16 16:54 | CONSULT ---
- Consultation REQUESTING PROVIDER: CONSULT REQUEST: We have been asked to surgically evaluate this patient for Left AVF occlusion. PCP: HISTORY OF PRESENT ILLNESS: 63yo patient well known by Dr thornton presents to the ED for chest pain after several failed attempts to access his Left UE AVF at the dialysis center. The patient states he experienced severe pain at the fistula site, followed by left sided chest pain. Patient states he took his nitroglycerine pills when the pain began, which did help. He claims to have had a similar experience with chest pain in response to pain. He currently denies any Chest pain or SOB while sitting in ED. Up to this point he has been is his normal state of health and his last dialysis session was 08/14/19. He denies any fever, chills, N/V. PMHx: CKD, CAD, [place] Recent Travel: Denies PAST MEDICAL HISTORY: as above PAST SURGICAL HISTORY: PCI Left AVF Social History: Smoking: denies Alcohol:denies Drugs: denies Family History: non-contributory Home Medications Medication Instructions Recorded Donepezil HCl [Aricept -] 10 mg PO DAILY 04/22/18 Tamsulosin HCl [Flomax -] 0.4 mg PO DAILY 04/22/18 Aspirin [Aspirin EC] 81 mg PO DAILY 07/17/18 Carvedilol [Coreg -] 12.5 mg PO BID 07/17/18 Lisinopril 5 mg PO HS 07/17/18 Atorvastatin Ca [Lipitor] 80 mg PO HS 09/25/18 Betamethasone/Propylene Glyc 30 ml TP BID 09/25/18 [Betamethasone Dp Aug 0.05% Lot] Calcium Acetate [Phoslo -] 667 mg PO TIDCM 09/25/18 Acetaminophen W/ Codeine #3 1 tab PO Q6H PRN #20 tablet MDD 4 09/26/18 [Tylenol # 3 -] Allergies Allergy/AdvReac Type Severity Reaction Status Date / Time No Known Allergies Allergy Verified 09/26/18 08:40 REVIEW OF SYSTEMS: CONSTITUTIONAL: Absent: fever, chills, diaphoresis, generalized weakness, CARDIOVASCULAR: +chest pain, + irregular heart rate, RESPIRATORY: Absent: shortness of breath, dyspnea with exertion, GASTROINTESTINAL: Absent: abdominal pain, abdominal distension, nausea, vomiting, GENITOURINARY: Absent: dysuria, MUSCULOSKELETAL: Absent: myalgia, arthralgia, SKIN: Absent: rash, itching, pallor HEMATOLOGIC/IMMUNOLOGIC: Absent: easy bleeding, easy bruising, lymphadenopathy NEUROLOGIC: Absent: headache, focal weakness, paresthesias, dizziness, bladder or bowel incontinence PSYCHIATRIC: Absent: anxiety, depression, PHYSICAL EXAM: GENERAL: Awake, alert, and fully oriented, in no acute distress. HEAD: Normal with no signs of trauma. EYES: sclera anicteric, conjunctiva clear. LUNGS: No auditory wheezes, No accessory muscle use. ABDOMEN: Soft, nontender, not distended, MUSCULOSKELETAL: Normal ROM at all joints. UPPER EXTREMITIES: Left AVF site with clean dry dressing, no tracking erythema or edema. no evidence of active bleeding, + pulses, warm, well-perfused. No cyanosis. Cap refill <2 seconds. No peripheral edema. LOWER EXTREMITIES: + pulses, warm, well-perfused. No calf tenderness. No peripheral edema. NEUROLOGICAL: Normal speech, gait not observed. PSYCH: Cooperative. Good eye contact. Appropriate mood and affect. SKIN: Warm, dry, normal turgor, no rashes or lesions noted. Shiley catheter placed in right ankit at bedside in ED- please see procedure note Vital Signs Temperature 97.8 F 08/16/19 15:03 Pulse Rate 93 H 08/16/19 15:03 Respiratory Rate 17 08/16/19 15:03 Blood Pressure 201/95 H 08/16/19 15:03 O2 Sat by Pulse Oximetry (%) 95 08/16/19 15:03 Lab Results WBC 7.9 K/mm3 (4.0-10.0) 08/16/19 15:22 RBC 3.46 M/mm3 (4.00-5.60) L 08/16/19 15:22 Hgb 10.5 GM/dL (11.7-16.9) L 08/16/19 15:22 Hct 31.7 % (35.4-49) L 08/16/19 15:22 MCV 91.6 fl (80-96) 08/16/19 15:22 MCHC 33.2 g/dl (32.0-35.9) 08/16/19 15: RDW 15.1 % (11.9-15.9) D 08/16/19 15:22 Plt Count 213 K/MM3 (134-434) D 08/16/19 15:22 Sodium 140 mmol/L (136-145) 08/16/19 15:22 Potassium 4.0 mmol/L (3.5-5.1) 08/16/19 15:22 Chloride 103 mmol/L (98-107) 08/16/19 15:22 Carbon Dioxide 23 mmol/L (21-32) 08/16/19 15:22 Anion Gap 13 MMOL/L (8-16) 08/16/19 15:22 BUN 82.2 mg/dL (7-18) H 08/16/19 15:22 Creatinine 11.1 mg/dL (0.55-1.3) H* 08/16/19 15:22 Random Glucose 85 mg/dL (74-106) 08/16/19 15:22 Calcium 8.8 mg/dL (8.5-10.1) 08/16/19 15:22 ACS work up pending Problem List - Problems (1) AV fistula occlusion Assessment/Plan: 63 with suspected clotted left AVF and acute chest pain. -Admit to medicine and complete full chest pain work up - Do not use left arm- band currently on patient -renal consult (Dr Oleary- discussed with Dr Mathis, will consult renal for dialysis tonight 08/16 via [facility]) -Medical and cardiac clearance for OR FRAN -NPO after midnight for possible OR tomorrow. Evaluation and plan discussed with Dr Thornton. Code(s): T82.898A - OTH COMPLICATION OF VASCULAR PROSTH DEV/GRFT, INIT Visit type - Case Type Case Type: ED Admission - Emergency Emergency Visit: Yes Care time: The patient presented to the Emergency Department on the above date and was hospitalized for further evaluation of their emergent condition. - New patient This patient is new to me today: Yes Date on this admission: 08/16/19
--- NOTE | 2019-08-16 16:59 | PDOC ---
Attending Attestation - Resident Resident Name: Jesus Alberto Rai - ED Attending Attestation I have performed the following: I have examined & evaluated the patient, The case was reviewed & discussed with the resident, I agree w/resident's findings & plan, Exceptions are as noted - HPI HPI: 08/16/19 17:22 63y M hx of CAD, ESRD (MWF, last dialysis wed), HTN, sent to the ED for further evaluation - pt went to dialysis and they were unalbe to access his fistula, went to dr. thornton who sent the pt to the ED for evaluation bc he had a complaint of cp. Pt deniesa ny sob/castanon, increased leg swelling. Pt does endorse mild cp nonexertional cp.. - Physicial Exam PE: 08/17/19 09:57 On exam pt in no distress pulm exam cta b/l +pitting edema b/l +fistula w/o thrill on LUE card exam: rrr - Medical Decision Making 08/17/19 09:57 no signs of fluid overload, will obtain trop for acs stratification will obtain dialysis labs show elevated bun/cr but normal k will admit for further management
--- NOTE | 2019-08-16 17:00 | PROC ---
Central Line Insertion - Procedure Note TIME OUT performed prior to this procedure with verbal confirmation of correct patient identity, correct side, agreement of the procedure, correct patient position, availability of necessary equipment. The consent form is complete and accurate. Risk of possible infection, bleeding have been discussed with the patient. Safety precautions based on patient history or medication use has been addressed. Indication: Other (Dialysis access) Consent on Chart: Yes Central Line: Dialysis Cath, Dual Lumen Position: Supine Area prepped with Chlorhexidine solution then draped using sterile barrier protection. Anesthesia: Lidocaine 1% Technique used: Modified Seldinger Ultrasound Guided Assistance: Yes Site: Right Femoral Dark venous non-pulsatile flow noted from hub of needle. The catheter was introduced. Guide wire removed intact. Each port aspirated then flushed with sterile normal saline and capped. Line secured to skin with silk suture. Biopatch placed around base of line. Sterile occlusive dressing applied. No complications. Patient tolerated the procedure well.
[2019-08-16 17:19] LABS: INR 1.09 (0.83-1.09); PROTHROMBIN TIME (PATIENT) 12.9 SEC (9.7-13.0)
--- NOTE | 2019-08-16 19:56 | HP ---
<Jassi Gomez - Last Filed: 08/17/19 02:36> CHIEF COMPLAINT: clotted AVF HISTORY OF PRESENT ILLNESS: 63 year old male with a past medical history of coronary artery disease, multiple MIs in the past (denies catheterizations), end stage renal disease (on dialysis MWF), hypertension came to the hospital today due to a clotted AVF noted in dialysis today. Patient reports mild chest pains alleviated with sublingual nitroglycerin earlier in the day, not currently endorsing any chest pain or shortness of breath. Reports pain in the L arm and pain in the right groin. Patient was examined during dialysis. He reports no current chest pain, shortness of breath, nausea, vomiting, diarrhea, fevers or chills. In the ED, patient had right sided dialysis catheter placed, where he states he is having some mild pain. ER course was notable for: (1) ECG show sinus rhythm with occasional PVCs, no acute ischemic changes, HR 91 Qtc 484 (2) Troponin 0.14 -> 0.17 (3) Creatinine 11 (4) BP 187/87 Recent Travel: denies PAST MEDICAL HISTORY: coronary artery disease, multiple MIs in the past (denies catheterizations), end stage renal disease (on dialysis MWF), hypertension PAST SURGICAL HISTORY: L AVF Social History: Smoking: denies Alcohol: denies Drugs: denies Family History: family hx significant for heart disease and DM Allergies No Known Allergies Allergy (Verified 09/26/18 08:40) HOME MEDICATIONS: Home Medications Medication Instructions Recorded Donepezil HCl [Aricept -] 10 mg PO DAILY 04/22/18 Tamsulosin HCl [Flomax -] 0.4 mg PO DAILY 04/22/18 Aspirin [Aspirin EC] 81 mg PO DAILY 07/17/18 Carvedilol [Coreg -] 12.5 mg PO BID 07/17/18 Lisinopril 5 mg PO HS 07/17/18 Atorvastatin Ca [Lipitor] 80 mg PO HS 09/25/18 Betamethasone/Propylene Glyc 30 ml TP BID 09/25/18 [Betamethasone Dp Aug 0.05% Lot] Calcium Acetate [Phoslo -] 667 mg PO TIDCM 09/25/18 Acetaminophen W/ Codeine #3 1 tab PO Q6H PRN #20 tablet MDD 4 09/26/18 [Tylenol # 3 -] REVIEW OF SYSTEMS CONSTITUTIONAL: Absent: fever, chills, diaphoresis, generalized weakness, malaise, loss of appetite, weight change HEENT: Absent: rhinorrhea, nasal congestion, throat pain, throat swelling, difficulty swallowing, mouth swelling, ear pain, eye pain, visual changes CARDIOVASCULAR: Absent: chest pain, syncope, palpitations, irregular heart rate, lightheadedness , peripheral edema RESPIRATORY: Absent: cough, shortness of breath, dyspnea with exertion, orthopnea, wheezing, stridor, hemoptysis GASTROINTESTINAL: Absent: abdominal pain, abdominal distension, nausea, vomiting, diarrhea, constipation, melena, hematochezia GENITOURINARY: Absent: dysuria, frequency, urgency, hesitancy, hematuria, flank pain, genital pain MUSCULOSKELETAL: Absent: myalgia, arthralgia, joint swelling, back pain, neck pain SKIN: Absent: rash, itching, pallor HEMATOLOGIC/IMMUNOLOGIC: Absent: easy bleeding, easy bruising, lymphadenopathy, frequent infections ENDOCRINE: Absent: unexplained weight gain, unexplained weight loss, heat intolerance, cold intolerance NEUROLOGIC: Absent: headache, focal weakness or paresthesias, dizziness, unsteady gait, seizure, mental status changes, bladder or bowel incontinence PSYCHIATRIC: Absent: anxiety, depression, suicidal or homicidal ideation, hallucinations. PHYSICAL EXAMINATION Vital Signs - 24 hr 08/16/19 08/16/19 08/16/19 15:03 18:05 18:25 Temperature 97.8 F 98.5 F 98.7 F Pulse Rate 93 H 93 H Pulse Rate [ 88 Right Radial] Respiratory 17 21 H 18 Rate Blood Pressure 201/95 H 183/110 H Blood Pressure 187/87 H [Right Arm] O2 Sat by Pulse 95 94 L Oximetry (%) 08/16/19 08/16/19 08/16/19 18:30 19:00 19:30 Temperature Pulse Rate 85 86 66 Pulse Rate [ Right Radial] Respiratory 18 18 18 Rate Blood Pressure 191/106 H 186/107 H 166/106 H Blood Pressure [Right Arm] O2 Sat by Pulse Oximetry (%) GENERAL: A&Ox3, no acute distress EYES: PERRLA, EOMI ENT: Moist mucus membranes NECK: No JVD LUNGS: CTA, no wheezes HEART: mildly tachycardic, no murmurs ABDOMEN: Soft, nontender, BS present MUSCULOSKELETAL: No CVA Tenderness, R sided dialysis catheter noted in groin EXTREMITIES: 2+ pulses, no edema. L sided AVF diminished thrill auscultated over accessible region - thrill auscultated strongly distal to the fistula in the forearm NEUROLOGICAL: No focal deficits Laboratory Results - last 24 hr 08/16/19 08/16/19 08/16/19 15:22 15:22 15:22 WBC 7.9 RBC 3.46 L Hgb 10.5 L Hct 31.7 L MCV 91.6 MCH 30.4 MCHC 33.2 RDW 15.1 D Plt Count 213 D MPV 9.1 Absolute Neuts (auto) 6.6 Neutrophils % 84.5 H Lymphocytes % 6.9 L D Monocytes % 5.9 Eosinophils % 1.8 Basophils % 0.9 Nucleated RBC % 0 PT with INR INR Sodium 140 Potassium 4.0 Chloride 103 Carbon Dioxide 23 Anion Gap 13 BUN 82.2 H Creatinine 11.1 H* Est GFR (CKD-EPI)AfAm 5.00 Est GFR (CKD-EPI)NonAf 4.31 Random Glucose 85 Calcium 8.8 Total Bilirubin 0.5 AST 20 ALT 34 Alkaline Phosphatase 140 H Creatine Kinase 275 Creatine Kinase Index 1.0 CK-MB (CK-2) 2.8 Troponin I 0.14 H Total Protein 6.0 L Albumin 2.6 L Blood Type O POSITIVE Antibody Screen Negative 08/16/19 15:22 WBC RBC Hgb Hct MCV MCH MCHC RDW Plt Count MPV Absolute Neuts (auto) Neutrophils % Lymphocytes % Monocytes % Eosinophils % Basophils % Nucleated RBC % PT with INR 12.90 INR 1.09 Sodium Potassium Chloride Carbon Dioxide Anion Gap BUN Creatinine Est GFR (CKD-EPI)AfAm Est GFR (CKD-EPI)NonAf Random Glucose Calcium Total Bilirubin AST ALT Alkaline Phosphatase Creatine Kinase Creatine Kinase Index CK-MB (CK-2) Troponin I Total Protein Albumin Blood Type Antibody Screen Current Medications Aspirin (Ecotrin -) 81 mg PO DAILY [facility] Atorvastatin Calcium (Lipitor -) 80 mg PO HS [facility] Carvedilol (Coreg -) 12.5 mg PO BID [facility] Donepezil HCl (Aricept -) 10 mg PO DAILY [facility] Insulin Aspart (Novolog Vial Sliding Scale -) 1 vial SQ Q6HPO [facility]; Protocol Last Admin: 08/16/19 23:43 Dose: Not Given Lisinopril (Prinivil) 5 mg PO HS [facility] Tamsulosin HCl (Flomax -) 0.4 mg PO DAILY@0830 [facility] ASSESSMENT/PLAN: 63 year old male with a past medical history of coronary artery disease, multiple MIs in the past (denies catheterizations), end stage renal disease (on dialysis MWF), hypertension is admitted for clotted L sided AVF #Clotted AV Fistula: unable to be used at present time, will need to be dialyzed through accessory line for now -Dr. Russ consulted -will need to see cardiology prior to procedure -cardiology consult placed for Dr. Claros -will keep NPO for now #End-Stage Renal Disease: on dialysis MWF -renal consulted Dr. Tai -s/p dialysis today -monitor BMP in AM -will need dialysis monday #Troponinemia: likely 2/2 demand ischemia vs poor renal clearance, CKMB normal -initial trop 0.14 trended up to 0.17 -repeat troponin in the morning -continue aspirin for now -ECG show sinus rhythm with occasional PVCs, no acute ischemic changes, HR 91 Qtc 484, repeat similar with elevated Qtc 505 -no active chest pain, will repeat EKG -echo ordered #Coronary Artery Disease: multiple MIs in the past -continue ASA/atorvastatin #Hypertension: BP elevated on admission -continue coreg 12.5 BID -continue lisinopril 5 daily #Diabetes Mellitus: sugars controlled -BGMs -ISS #FEN -no standing fluids -check lytes in AM -NPO for surgical and cardiac evaluations in AM, can have medications #Prophylaxis -SCDs #Disposition -admit telemetry Visit type - Emergency Visit Emergency Visit: Yes ED Registration Date: 08/16/19 Care time: The patient presented to the Emergency Department on the above date and was hospitalized for further evaluation of their emergent condition. - New Patient This patient is new to me today: Yes Date on this admission: 08/17/19 - Critical Care Critical Care patient: No ATTENDING PHYSICIAN STATEMENT I saw and evaluated the patient. I reviewed the resident's note and discussed the case with the resident. I agree with the resident's findings and plan as documented. SUBJECTIVE: OBJECTIVE: ASSESSMENT AND PLAN: <Simone Villafana - Last Filed: 08/24/19 10:51> Seen and examined; independently verified all diagnostic information as well as historical and exam findings as outlined in the resdient note. I agree with their above documentation aside from as is supplemented by myself below. 10 sys ROS done and negative aside from HPI VS, labs, imaging reviewed NAD, AAO, resting in bed RRR s1/2 no mgr NT ND +BS CN2-12 wnl, no fnd Normal mood, appropriate behavior Clotted fistula noted with lack of thrill, no suspected cellulitis, no bleeding All diagnostics and imaigng/labs independently reviewed EKG reviewed A/P: -Clotted AVF -Type 2 NSTEMI -CAD -HTN -HLD -ESRD on HD -IDDM Full Code ATTENDING PHYSICIAN STATEMENT I saw and evaluated the patient. I reviewed the resident's note and discussed the case with the resident. I agree with the resident's findings and plan as documented. SUBJECTIVE: OBJECTIVE: ASSESSMENT AND PLAN:
[2019-08-16] MEDS: INSULIN SLIDING SCALE (NOVOLOG) 1 VIAL SQ SCH (23:43)
[2019-08-17] MEDS: INSULIN SLIDING SCALE (NOVOLOG) 1 VIAL SQ SCH ×4 (06:32→23:57)
[2019-08-17 06:43] LABS: HEMATOCRIT 28.6 % (35.4-49); HEMOGLOBIN 9.6 GM/dL (11.7-16.9); MCHC 33.7 g/dl (32.0-35.9); MEAN CELL VOLUME 91.9 fl (80-96); MEAN PLT VOLUME 8.8 fl (7.5-11.1); PLATELET COUNT 195 K/MM3 (134-434); RBC 3.11 M/mm3 (4.00-5.60); WHITE BLOOD COUNT 5.8 K/mm3 (4.0-10.0)
[2019-08-17 06:51] LABS: INR 1.13 (0.83-1.09); PROTHROMBIN TIME (PATIENT) 13.3 SEC (9.7-13.0)
[2019-08-17 07:08] LABS: BLOOD UREA NITROGEN 58.3 mg/dL (7-18); CALCIUM 8.1 mg/dL (8.5-10.1)
[2019-08-17 07:45] LABS: CREATININE 8.9 mg/dL (0.55-1.3)
--- NOTE | 2019-08-17 08:27 | PN ---
Progress Note (short form) - Note Progress Note: Patient is feeling better, s/p venoplasty AV fistula an dialysis Vital Signs Temperature 99.6 F 08/17/19 06:00 Pulse Rate 90 08/17/19 06:00 Respiratory Rate 18 08/17/19 06:00 Blood Pressure 156/84 08/17/19 06:00 O2 Sat by Pulse Oximetry (%) 92 L 08/16/19 22:00 GENERAL: The patient is awake, alert, and fully oriented, in no acute distress. HEAD: Normal with no signs of trauma. EYES: PERRL, extraocular movements intact, sclera anicteric, conjunctiva clear. ENT: Ears normal, oropharynx clear without exudates, moist mucous membranes. NECK: Trachea midline, full range of motion, supple. LUNGS: Breath sounds equal, clear to auscultation bilaterally, no wheezes, no crackles, no accessory muscle use. HEART: Regular rate and rhythm, S1, S2 without murmur, rub or gallop. ABDOMEN: Soft, nontender, nondistended, normoactive bowel sounds, no guarding, no rebound, no hepatosplenomegaly, no masses. EXTREMITIES: 2+ pulses, warm, well-perfused, AV fistula, shily. NEUROLOGICAL: Cranial nerves II through XII grossly intact. Normal speech, gait not observed. PSYCH: Normal mood, normal affect. SKIN: Warm, dry, normal turgor, no rashes or lesions noted CBCD WBC 5.8 K/mm3 (4.0-10.0) 08/17/19 05:23 RBC 3.11 M/mm3 (4.00-5.60) L 08/17/19 05:23 Hgb 9.6 GM/dL (11.7-16.9) L 08/17/19 05:23 Hct 28.6 % (35.4-49) L 08/17/19 05:23 MCV 91.9 fl (80-96) 08/17/19 05:23 MCHC 33.7 g/dl (32.0-35.9) 08/17/19 05:23 RDW 15.0 % (11.9-15.9) 08/17/19 05:23 Plt Count 195 K/MM3 (134-434) 08/17/19 05:23 MPV 8.8 fl (7.5-11.1) 08/17/19 05:23 CMP Sodium 141 mmol/L (136-145) 08/17/19 05:23 Potassium 4.0 mmol/L (3.5-5.1) 08/17/19 05:23 Chloride 103 mmol/L (98-107) 08/17/19 05:23 Carbon Dioxide 29 mmol/L (21-32) 08/17/19 05:23 Anion Gap 9 MMOL/L (8-16) 08/17/19 05:23 BUN 58.3 mg/dL (7-18) H 08/17/19 05:23 Creatinine 8.9 mg/dL (0.55-1.3) H* 08/17/19 05:23 Random Glucose 85 mg/dL (74-106) 08/17/19 05:23 Calcium 8.1 mg/dL (8.5-10.1) L 08/17/19 05:23 Total Bilirubin 0.5 mg/dL (0.2-1) 08/16/19 15:22 AST 20 U/L (15-37) 08/16/19 15:22 ALT 34 U/L (13-61) 08/16/19 15:22 Alkaline Phosphatase 140 U/L (45-117) H 08/16/19 15:22 Total Protein 6.0 g/dl (6.4-8.2) L 08/16/19 15:22 Albumin 2.6 g/dl (3.4-5.0) L 08/16/19 15:22 CARDIAC ENZYMES Creatine Kinase 202 U/L (26-308) 08/17/19 05:23 Troponin I 0.19 ng/ml (0.00-0.05) H 08/17/19 05:23 Current Medications Generic Name Dose Route Start Last Admin Trade Name Freq PRN Reason Stop Dose Admin Aspirin 81 mg 08/17/19 10:00 Ecotrin - PO DAILY [facility] Atorvastatin Calcium 80 mg 08/17/19 22:00 Lipitor - PO HS [facility] Carvedilol 12.5 mg 08/17/19 10:00 Coreg - PO BID [facility] Donepezil HCl 10 mg 08/17/19 10:00 Aricept - PO DAILY [facility] Insulin Aspart 1 vial 08/17/19 00:00 08/17/19 06:32 Novolog Vial Sliding Scale - SQ Not Given Q6HPO [facility] Protocol Lisinopril 5 mg 08/17/19 22:00 Prinivil PO HS [facility] Tamsulosin HCl 0.4 mg 08/17/19 08:30 Flomax - PO DAILY@0830 [facility] Home Medications Medication Instructions Recorded Donepezil HCl [Aricept -] 10 mg PO DAILY 04/22/18 Tamsulosin HCl [Flomax -] 0.4 mg PO DAILY 04/22/18 Aspirin [Aspirin EC] 81 mg PO DAILY 07/17/18 Carvedilol [Coreg -] 12.5 mg PO BID 07/17/18 Lisinopril 5 mg PO HS 07/17/18 Atorvastatin Ca [Lipitor] 80 mg PO HS 09/25/18 Betamethasone/Propylene Glyc 30 ml TP BID 09/25/18 [Betamethasone Dp Aug 0.05% Lot] Calcium Acetate [Phoslo -] 667 mg PO TIDCM 09/25/18 Acetaminophen W/ Codeine #3 1 tab PO Q6H PRN #20 tablet MDD 4 09/26/18 [Tylenol # 3 -] ECG show sinus rhythm with occasional PVCs, no acute ischemic changes, HR 91 Qtc 484, repeat similar with elevated Qtc 505 echo on 04/23/2019: left ventricle moderately enlarged, left ventricular systolic function is moderate to severely reduced. Mild aortic regurgitation left atrium mildly dilated right ventricular systolic function is mildly reduced. ASSESSMENT/PLAN: 63 year old male with a past medical history of coronary artery disease, multiple MIs in the past (denies catheterizations), end stage renal disease (on dialysis MWF), hypertension is admitted for clotted L sided AVF #Thrombosed AV Fistula: s/p Percutaneous thrombectomy left arm fistula. Venoplasty AV fistula by Dr. Russ. cardiology is consulted for clearance of the procedure also mild elevation of troponin. #End-Stage Renal Disease: on dialysis MWF, dr Oleary is his fur blender ,for consult will see the patient today #Troponinemia: due to demand ischemia vs poor renal clearance, CKMB normal, patient has chronic elevated troponin of 0.14--> 0.17 today , last echo 2018 #Coronary Artery Disease: multiple MIs in the past, continue ASA/atorvastatin #Hypertension UNcontrolled : continue coreg 12.5 BID, lisinopril 5 daily #Diabetes Mellitus: sugars controlled continue with SS with coverage s/p NPO for AVF repair DVT Prophylaxis: SCDs Visit type - Emergency Visit Emergency Visit: Yes ED Registration Date: 08/16/19 Care time: The patient presented to the Emergency Department on the above date and was hospitalized for further evaluation of their emergent condition. - New Patient This patient is new to me today: Yes Date on this admission: 08/17/19 - Critical Care Critical Care patient: No - Discharge Referral Referred to [facility] Med P.C.: No
[2019-08-17] MEDS ORDERED: TAMSULOSIN HCL 0.4 MG CAP PO SCH (08:30)
--- NOTE | 2019-08-17 09:57 | CON.NEP ---
Consult Consult Specialty:: Nephrology Reason for Consultation:: ESRD - History of Present Illness History of Present Illness: 63 with cardiomyopathy no stents started HD summer 2017 Not followed up with cardiology lately Clotted AVF In the office was having CP hence sent to ER RT miky cool placed Dialyzed last night 2 hrs target 1.5 kg CP free now - Past Medical History GAMES [employer]ER: Yes: Dementia Cardio/Vascular: Yes: CAD, CHF, Hyperlipdemia, [place] (2 years ago per patient) Renal/: Yes: Renal Failure - Past Surgical History Past Surgical History: Yes: AV Fistula/Graft - Alcohol/Substance Use Hx Alcohol Use: No History of Substance Use: reports: None - Smoking History Smoking history: Former smoker Have you smoked in the past 12 months: No - Social History Usual Living Arrangement: With Spouse ADL: Independent History of Recent Travel: No Home Medications - Allergies Allergies/Adverse Reactions: Allergies Allergy/AdvReac Type Severity Reaction Status Date / Time No Known Allergies Allergy Verified 09/26/18 08:40 - Home Medications Home Medications: Ambulatory Orders Donepezil HCl [Aricept -] 10 mg PO DAILY 04/22/18 Tamsulosin HCl [Flomax -] 0.4 mg PO DAILY 04/22/18 Aspirin [Aspirin EC] 81 mg PO DAILY 07/17/18 Carvedilol [Coreg -] 12.5 mg PO BID 07/17/18 Lisinopril 5 mg PO HS 07/17/18 Atorvastatin Ca [Lipitor] 80 mg PO HS 09/25/18 Betamethasone/Propylene Glyc [Betamethasone Dp Aug 0.05% Lot] 30 ml TP BID 09/25 Calcium Acetate [Phoslo -] 667 mg PO TIDCM 09/25/18 Acetaminophen W/ Codeine #3 [Tylenol # 3 -] 1 tab PO Q6H PRN #20 tablet MDD 4 Review of Systems Unable to obtain ROS, reason: Feels ok now Nephrology Consult - Height Height: 5 ft 10 in - Weight Weight: 136 lb 0.4 oz - BMI Body Mass Index (BMI): 19.5 - Lab Results CBC,BMP: CBC, BMP 08/17/19 05:23 08/17/19 05:23 Anion Gap: Anion Gap Anion Gap 9 MMOL/L (8-16) 08/17/19 05:23 - Imaging Chest X-ray: Image Reviewed - Physical Examination Vital Signs: Vital Signs Temperature 99.6 F 08/17/19 08:54 Pulse Rate 89 08/17/19 08:54 Respiratory Rate 18 08/17/19 08:54 Blood Pressure 155/83 08/17/19 08:54 O2 Sat by Pulse Oximetry (%) 92 L 08/16/19 22:00 Respiratory: Yes: Other (decreased BS) Edema: No Assessment/Plan 63 ESRD cardiomyoathy started HD 2017 Clotted AVF Will dialyze today via groin line If cleared by cardio then will go to the OR today If not resume diet ADD po4 to sample and resume binders meds reviewed
[2019-08-17] MEDS ORDERED: DONEPEZIL HCL 10 MG TABLET (FP) PO SCH (10:00)
[2019-08-17] MEDS ORDERED: ASPIRIN COATED 81 MG TABLET.EC PO SCH (10:00)
[2019-08-17] MEDS ORDERED: CARVEDILOL 12.5 MG TABLET (FP) PO SCH (10:00)
--- NOTE | 2019-08-17 10:49 | CON.CARD ---
Consult Consult Specialty:: Cardiology Referred by:: Hospitalist Medicine Reason for Consultation:: Preoperative cardiovascular evaluation - History of Present Illness Chief Complaint: Clotted AVF History of Present Illness: This is a 63 yo M with h/o CAD s/p NH, moderate-severe ischemic cardiomyopathy, hypertensive cardiomyopathy, ESRD on HD since summer 2017, PAF->SR previously on coumadin previously f/u with Dr. Jeannette Kaiser @ [facility], but not for awhile, presented with clotted left AVF, NTG-repsonsive chest pain in context of elevated BP, did not take antihypertensive agents prior to HD, chest pain since resolved after HD last night through right groin line. He is currently chest pain free, denies dyspnea, palpitations, near or true syncope, orthopnea, PND or LE edema. Coumadin stopped after he stopped f/u with cardiology at [facility]. - Past Medical History Cardio/Vascular: Yes: CAD, CHF, Hyperlipdemia, [place] (2 years ago per patient) Renal/: Yes: Renal Failure - Past Surgical History Past Surgical History: Yes: AV Fistula/Graft - Alcohol/Substance Use Hx Alcohol Use: No History of Substance Use: reports: None - Smoking History Smoking history: Former smoker Have you smoked in the past 12 months: No - Social History Usual Living Arrangement: With Spouse ADL: Independent History of Recent Travel: No Home Medications - Allergies Allergies/Adverse Reactions: Allergies Allergy/AdvReac Type Severity Reaction Status Date / Time No Known Allergies Allergy Verified 09/26/18 08:40 - Home Medications Home Medications: Ambulatory Orders Donepezil HCl [Aricept -] 10 mg PO DAILY 04/22/18 Tamsulosin HCl [Flomax -] 0.4 mg PO DAILY 04/22/18 Aspirin [Aspirin EC] 81 mg PO DAILY 07/17/18 Carvedilol [Coreg -] 12.5 mg PO BID 07/17/18 Lisinopril 5 mg PO HS 07/17/18 Atorvastatin Ca [Lipitor] 80 mg PO HS 09/25/18 Betamethasone/Propylene Glyc [Betamethasone Dp Aug 0.05% Lot] 30 ml TP BID 09/25 Calcium Acetate [Phoslo -] 667 mg PO TIDCM 09/25/18 Acetaminophen W/ Codeine #3 [Tylenol # 3 -] 1 tab PO Q6H PRN #20 tablet MDD 4 Review of Systems - Review of Systems Cardiovascular: reports: Chest Pain Vital Signs: Vital Signs Temperature 99.6 F 08/17/19 08:54 Pulse Rate 89 08/17/19 08:54 Respiratory Rate 18 08/17/19 08:54 Blood Pressure 155/83 08/17/19 08:54 O2 Sat by Pulse Oximetry (%) 92 L 08/16/19 22:00 Constitutional: Yes: Calm, Anxious, Thin Neck: Yes: Supple Respiratory: Yes: Regular, On Nasal O2 Gastrointestinal: Yes: Soft, Hypoactive Bowel Sounds Cardiovascular: Yes: Regular Rate and Rhythm JVD: No Carotid Bruit: No Heart Sounds: Yes: S1, S2 Murmur: Yes: Systolic Murmur, Grade 1 Edema: No - Other Data Labs, Other Data: CBC, BMP 08/17/19 05:23 08/17/19 05:23 INR, PTT INR 1.13 (0.83-1.09) H 08/17/19 05:23 Troponin, BNP 08/16/19 08/16/19 08/17/19 15:22 23:15 05:23 Troponin I 0.14 H 0.17 H 0.19 H Troponin, BNP 08/16/19 08/16/19 08/17/19 15:22 23:15 05:23 Troponin I 0.14 H 0.17 H 0.19 H sinus rhythm @ 91 with occasional PVCs, nonspec ST-T changes, Qtc 490 Ejection Fraction %: LVEF < 40 % Imaging - Results Chest X-ray: Report Reviewed (Congestion with pleural effusions) Problem List - Problems (1) Pre-operative cardiovascular examination, left ventricular ejection fraction < 35% Code(s): Z01.810 - ENCOUNTER FOR PREPROCEDURAL CARDIOVASCULAR EXAMINATION; I51.89 - OTHER ILL-DEFINED HEART DISEASES (2) AV fistula occlusion Code(s): T82.898A - OTH COMPLICATION OF VASCULAR PROSTH DEV/GRFT, INIT Qualifiers: Encounter type: initial encounter Qualified Code(s): T82.898A - Other specified complication of vascular prosthetic devices, implants and grafts, initial encounter (3) Chest pain Code(s): R07.9 - CHEST PAIN, UNSPECIFIED Qualifiers: Chest pain type: unspecified Qualified Code(s): R07.9 - Chest pain, unspecified (4) Acute on chronic systolic (congestive) heart failure Code(s): I50.23 - ACUTE ON CHRONIC SYSTOLIC (CONGESTIVE) HEART FAILURE (5) Anemia Code(s): D64.9 - ANEMIA, UNSPECIFIED Qualifiers: Anemia type: due to chronic kidney disease (6) CAD (coronary artery disease) Code(s): I25.10 - ATHSCL HEART DISEASE OF [place] CORONARY ARTERY W/O ANG PCTRS Qualifiers: Coronary Disease-Associated Artery/Lesion type: [place] artery [place] vs. transplanted heart: [place] heart Associated angina: without angina Qualified Code(s): I25.10 - Atherosclerotic heart disease of [place] coronary artery without angina pectoris (7) End stage renal disease Code(s): N18.6 - END STAGE RENAL DISEASE (8) Hyperlipidemia Code(s): E78.5 - HYPERLIPIDEMIA, UNSPECIFIED Qualifiers: Hyperlipidemia type: pure hypercholesterolemia Qualified Code(s): E78.00 - Pure hypercholesterolemia, unspecified; E78.0 - Pure hypercholesterolemia (9) Ischemic cardiomyopathy Code(s): I25.5 - ISCHEMIC CARDIOMYOPATHY (10) Old inferolateral myocardial infarction Code(s): I25.2 - OLD MYOCARDIAL INFARCTION (11) Paroxysmal atrial fibrillation Code(s): I48.0 - PAROXYSMAL ATRIAL FIBRILLATION Assessment/Plan January 17, 2015 R&LHc @ [facility]: 3 vessel CAD with POWER SHOVEL [employer]CH[employer]IC RVA and OM2, elevated right and left heart pressures January 19, 2015 Echo: Mod LVH moderate decreased LVEF 40% with AK inferior and inferoseptal, mild AR, MR, mild LAE January 22, 2015 Lexiscan Myoview: Dense scar inferior wall, large lateral ischemia, inferolateral AK, LVEF 30% January 21, 2015 Rest and redistribution Thallium: Scar involving entire inferior wall, basal to mid inferolateral, basal inferoseptal, and apex, no significant hibernating myocardiaum, dilated LV with severely decreased LVEF 27% April 23, 2018 Echo: Moderately dilated with moderate-severe decreased LV fxn, mild decreased RV fxn, mild AR, mild LAE 1. Chest pain referable to 2. Acute on chronic diastolic/systolic failure and pulmonary edema referable to 3. Hypertensive urgency in context of medical indiscretion 4. CAD s/p NH, demand ischemic injury 5. Ischemic cardiomyopathy (moderate-severe) 6. ESRD on HD MWF with clogged LUE AVF 7. Paroxysmal atrial fibrillation now in SR off a/c w/o cards f/u 8. Anemia of CKD P:1. Volume removal via UF/HD has improved symptoms 2. Given resolution of CHF and elevated LEVDP with dialysis and BP control, troponins are due to subendocardial ischemia and not ACS, no sustained arrhythmias noted, he may proceed with LUE AVF intervention from CV standpoint w /o further testing 2. Continue carvedilol 12.5 bid, lisinopril 5 qd, Lipitor 80 qd, and ASA 81 qd, consideration for switch to Entresto after LV fxn reassessment 3. Previously on coumadin per INR, recommend change Eliquis 2.5 bid and d/c ASA once post-op hemostasis assured 4. O2 to maintain saturation 5. Pt prefers to f/u locally in our office 6. Thank you for consultative opportunity
[2019-08-17] MEDS ORDERED: EPOETIN ALFA 10,000 UNIT/1 ML VIAL SQ ONE (11:00)
[2019-08-17] MEDS ORDERED: MIDAZOLAM HCL 2 MG/2 ML SINGLE DOSE VIAL ONE (13:05)
[2019-08-17] MEDS ORDERED: LIDOCAINE HCL 1%, 10 MG/ML (20ML VIAL) ONE (13:12)
[2019-08-17] MEDS ORDERED: HEPARIN NA (PORCINE) 5,000 UNITS/ML 1ML VIAL ONE (13:34)
[2019-08-17] MEDS ORDERED: LIDOCAINE HCL 1%, 10 MG/ML (20ML VIAL) INF ONE (13:59)
--- NOTE | 2019-08-17 14:38 | OP ---
Operative Note - Note: Operative Date: 08/17/19 Pre-Operative Diagnosis: Thrombosed AV fistula left arm Operation: Percutaneous thrombectomy left arm fistula. Venoplasty AV fistula Findings: Thrombosed AV fistula Multiple severe stenoses in basilic vein from AV anastomosis to axillary vein Post-Operative Diagnosis: Same as Pre-op Surgeon: Suraj Russ Anesthesiologist/SUPERVISORY LIFEGUARD: Ken Mauricio Anesthesia: Fractional Estimated Blood Loss (mls): 50
[2019-08-17] MEDS ORDERED: ONDANSETRON 4 MG/2 ML VIAL IVPUSH PRN (14:46)
--- NOTE | 2019-08-17 14:54 | EKG ---
Test Reason : Blood Pressure : / mmHG Vent. Rate : 072 BPM Atrial Rate : 072 BPM P-R Int : 154 ms QRS Dur : 108 ms QT Int : 448 ms P-R-T Axes : 084 -15 154 degrees QTc Int : 490 ms SINUS RHYTHM WITH OCCASIONAL PREMATURE VENTRICULAR COMPLEXES INFERIOR INFARCT (CITED ON OR BEFORE 22-APR-2018) ABNORMAL ECG WHEN COMPARED WITH ECG OF 16-AUG-2019 23:22, PREMATURE VENTRICULAR COMPLEXES ARE NOW PRESENT Confirmed by Leta Otoole ([id number]) on 08/17/2019 2:54:00 PM Referred By: Sina LAGOS Confirmed By:Leta Otoole
--- NOTE | 2019-08-17 14:57 | EKG ---
Test Reason : Blood Pressure : / mmHG Vent. Rate : 083 BPM Atrial Rate : 083 BPM P-R Int : 160 ms QRS Dur : 110 ms QT Int : 430 ms P-R-T Axes : 084 -16 160 degrees QTc Int : 505 ms NORMAL SINUS RHYTHM INFERIOR INFARCT (CITED ON OR BEFORE 22-APR-2018) T WAVE ABNORMALITY, CONSIDER LATERAL ISCHEMIA PROLONGED QT ABNORMAL ECG WHEN COMPARED WITH ECG OF 16-AUG-2019 14:59, PREMATURE VENTRICULAR COMPLEXES ARE NO LONGER PRESENT PREMATURE ATRIAL COMPLEXES ARE NO LONGER PRESENT Confirmed by Leta Otoole ([id number]) on 08/17/2019 2:56:49 PM Referred By: Confirmed By:Leta Otoole
[2019-08-17] MEDS: EPOETIN ALFA 2,000 UNIT/1 ML VIAL IVPUSH SCH (18:30)
[2019-08-17] MEDS: oxyCODONE HCL 5 MG TABLET PO PRN ×2 (18:55→23:42)
[2019-08-17] MEDS: CARVEDILOL 12.5 MG TABLET (FP) PO SCH (21:52)
[2019-08-17] MEDS: LISINOPRIL 5 MG TABLET (FP) PO SCH (21:52)
[2019-08-17] MEDS: ATORVASTATIN CA 80 MG TABLET (FP) PO SCH (21:52)
[2019-08-17] MEDS ORDERED: LISINOPRIL 5 MG TABLET (FP) PO SCH (22:00)
[2019-08-17] MEDS ORDERED: ATORVASTATIN CA 80 MG TABLET (FP) PO SCH (22:00)
[2019-08-17] MEDS: ACETAMINOPHEN 325 MG TABLET (FP) PO PRN (23:44)
[2019-08-17] MEDS: EPOETIN ALFA 3,000 UNIT/1 ML ML IVPUSH SCH (23:56)
[2019-08-18] MEDS: oxyCODONE HCL 5 MG TABLET PO PRN ×3 (04:10→16:24)
[2019-08-18] MEDS: ACETAMINOPHEN 325 MG TABLET (FP) PO PRN (04:13)
[2019-08-18 06:45] LABS: BASO % 0.8 % (0-2.0); EOS % 2.4 % (0-4.5); HEMATOCRIT 25.6 % (35.4-49); HEMOGLOBIN 8.6 GM/dL (11.7-16.9); LYMPH % 11.1 % (8-40); MCH 30.9 pg (25.7-33.7); MCHC 33.5 g/dl (32.0-35.9); MEAN CELL VOLUME 92.1 fl (80-96); MONO % 10.1 % (3.8-10.2); NEUT % 75.6 % (42.8-82.8); PLATELET COUNT 175 K/MM3 (134-434); RBC 2.78 M/mm3 (4.00-5.60); RDW 15.2 % (11.9-15.9); WHITE BLOOD COUNT 6.1 K/mm3 (4.0-10.0)
[2019-08-18] MEDS: INSULIN SLIDING SCALE (NOVOLOG) 1 VIAL SQ SCH ×4 (06:47→23:14)
[2019-08-18 07:18] LABS: BILIRUBIN,TOTAL 0.4 mg/dL (0.2-1); BLOOD UREA NITROGEN 53.4 mg/dL (7-18); CALCIUM 7.8 mg/dL (8.5-10.1); PHOSPHOROUS 4.8 mg/dL (2.5-4.9); TOT PROT 4.6 g/dl (6.4-8.2)
[2019-08-18 07:40] LABS: CREATININE 8.3 mg/dL (0.55-1.3)
--- NOTE | 2019-08-18 08:28 | EKG ---
Test Reason : Blood Pressure : / mmHG Vent. Rate : 091 BPM Atrial Rate : 091 BPM P-R Int : 156 ms QRS Dur : 104 ms QT Int : 394 ms P-R-T Axes : 081 -19 -59 degrees QTc Int : 484 ms SINUS RHYTHM WITH OCCASIONAL PREMATURE VENTRICULAR COMPLEXES AND PREMATURE ATRIAL COMPLEXES POSSIBLE LEFT ATRIAL ENLARGEMENT LOW VOLTAGE QRS INFERIOR INFARCT (CITED ON OR BEFORE 22-APR-2018) ABNORMAL ECG WHEN COMPARED WITH ECG OF 26-APR-2018 14:56, SINUS RHYTHM HAS REPLACED ATRIAL FIBRILLATION NONSPECIFIC T WAVE ABNORMALITY NOW EVIDENT IN INFERIOR LEADS Confirmed by Leta Otoole ([id number]) on 08/18/2019 8:27:36 AM Referred By: Confirmed By:Leta Otoole
[2019-08-18] MEDS ORDERED: PT OWN MED DRAWER 7, Y5N ONE (08:50)
--- NOTE | 2019-08-18 09:02 | PN ---
Physical Exam: SUBJECTIVE: Patient seen and examined at bedside. Reports pain in his L arm. Per nurse, patient had several second run of V tach on monitor. Additionally, reports patient desaturated off oxygen to the 80s, prompting her to put the oxygen back on. Patient denies chest pain, shortness of breath, fevers, chills, nausea, vomiting, diarrhea. OBJECTIVE: Vital Signs Period Temp Pulse Resp BP Sys/Wyatt Pulse Ox Last 24 Hr 98.3 F-100.2 F 69-95 16-18 128-173/54-99 96-97 GENERAL: A&Ox3, no acute distress EYES: PERRLA, EOMI LUNGS: CTA, no wheezes HEART: mildly tachycardic, no murmurs ABDOMEN: Soft, nontender, BS present EXTREMITIES: 2+ pulses, no edema. Thrill felt in LUE fistula Laboratory Results - last 24 hr 08/16/19 08/17/19 08/17/19 18:40 11:40 12:07 WBC RBC Hgb Hct MCV MCH MCHC RDW Plt Count MPV Absolute Neuts (auto) Neutrophils % Lymphocytes % Monocytes % Eosinophils % Basophils % Nucleated RBC % Sodium Potassium Chloride Carbon Dioxide Anion Gap BUN Creatinine Est GFR (CKD-EPI)AfAm Est GFR (CKD-EPI)NonAf POC Glucometer 89 Random Glucose Calcium Phosphorus Magnesium Total Bilirubin AST ALT Alkaline Phosphatase Total Protein Albumin Hep Bs Antigen Negative Hep C Ab Diagnostic 0.2 Blood Type O POSITIVE Antibody Screen Negative 08/17/19 08/17/19 08/18/19 19:00 23:42 05:05 WBC RBC Hgb Hct MCV MCH MCHC RDW Plt Count MPV Absolute Neuts (auto) Neutrophils % Lymphocytes % Monocytes % Eosinophils % Basophils % Nucleated RBC % Sodium Potassium Chloride Carbon Dioxide Anion Gap BUN Creatinine Est GFR (CKD-EPI)AfAm Est GFR (CKD-EPI)NonAf POC Glucometer 120 106 102 Random Glucose Calcium Phosphorus Magnesium Total Bilirubin AST ALT Alkaline Phosphatase Total Protein Albumin Hep Bs Antigen Hep C Ab Diagnostic Blood Type Antibody Screen 08/18/19 08/18/19 05:40 05:40 WBC 6.1 RBC 2.78 L Hgb 8.6 L Hct 25.6 L MCV 92.1 MCH 30.9 MCHC 33.5 RDW 15.2 Plt Count 175 MPV 9.0 Absolute Neuts (auto) 4.6 Neutrophils % 75.6 Lymphocytes % 11.1 D Monocytes % 10.1 Eosinophils % 2.4 Basophils % 0.8 Nucleated RBC % 0 Sodium 139 Potassium 4.0 Chloride 105 Carbon Dioxide 28 Anion Gap 6 L BUN 53.4 H Creatinine 8.3 H* Est GFR (CKD-EPI)AfAm 7.11 Est GFR (CKD-EPI)NonAf 6.13 POC Glucometer Random Glucose 106 Calcium 7.8 L Phosphorus 4.8 Magnesium 2.0 Total Bilirubin 0.4 AST 22 ALT 25 Alkaline Phosphatase 108 Total Protein 4.6 L Albumin 2.0 L Hep Bs Antigen Hep C Ab Diagnostic Blood Type Antibody Screen Active Medications Generic Name Dose Route Start Last Admin Trade Name Freq PRN Reason Stop Dose Admin Acetaminophen 325 mg 08/17/19 14:47 08/18/19 04:13 Tylenol - PO 08/20/19 14:46 325 mg Q4H PRN Administration PAIN LEVEL 1-5 Aspirin 81 mg 08/18/19 10:00 Ecotrin - PO DAILY [facility] Atorvastatin Calcium 80 mg 08/17/19 22:00 08/17/19 21:52 Lipitor - PO 80 mg HS [facility] Administration Carvedilol 12.5 mg 08/17/19 22:00 08/17/19 21:52 Coreg - PO 12.5 mg BID [facility] Administration Donepezil HCl 10 mg 08/18/19 22:00 Aricept - PO HS [facility] Epoetin Judson 3,000 unit 08/17/19 23:59 08/17/19 23:56 Procrit - IVPUSH Not Given ONCE [facility] Insulin Aspart 1 vial 08/17/19 18:00 08/18/19 06:47 Novolog Vial Sliding Scale - SQ Not Given Q6HPO [facility] Protocol Lisinopril 5 mg 08/17/19 22:00 08/17/19 21:52 Prinivil PO 5 mg HS [facility] Administration Ondansetron HCl 4 mg 08/17/19 14:46 Zofran Injection IVPUSH 08/18/19 14:45 Q6H PRN NAUSEA AND/OR VOMITING Oxycodone HCl 5 mg 08/17/19 14:47 08/18/19 04:10 Roxicodone - PO 5 mg Q4H PRN Administration PAIN LEVEL 1-5 Tamsulosin HCl 0.4 mg 08/18/19 08:30 Flomax - PO DAILY@0830 [facility] ASSESSMENT/PLAN: 63 year old male with a past medical history of coronary artery disease, multiple MIs in the past (denies catheterizations), end stage renal disease (on dialysis MWF), hypertension is admitted for clotted L sided AVF #Clotted AV Fistula: POD1 declottment -Dr. Russ following -can dialyze -will need to get dialysis on this admission -oxycodone for pain #End-Stage Renal Disease: on dialysis MWF, appears overloaded today due to hypoxemia -renal consulted -monitor BMP in AM -will need dialysis monday -pre-post ordered due to hypoxia earlier in the day, could be due to volume overload from needing dialysis #Troponinemia: likely 2/2 demand ischemia #Coronary Artery Disease: multiple MIs in the past -continue ASA/atorvastatin #Hypertension: BP elevated on admission -continue coreg 12.5 BID -continue lisinopril 5 daily #Diabetes Mellitus: sugars controlled -BGMs -ISS #FEN -no standing fluids -check lytes in AM -NPO for surgical and cardiac evaluations in AM, can have medications #Prophylaxis -SCDs #Disposition -Tele admit - dispo pending dialysis and O2 requirements Visit type - Emergency Visit Emergency Visit: No - New Patient This patient is new to me today: No - Critical Care Critical Care patient: No ATTENDING PHYSICIAN STATEMENT I saw and evaluated the patient. I reviewed the resident's note and discussed the case with the resident. I agree with the resident's findings and plan as documented. SUBJECTIVE: OBJECTIVE: ASSESSMENT AND PLAN:
[2019-08-18] MEDS: TAMSULOSIN HCL 0.4 MG CAP PO SCH (09:15)
[2019-08-18] MEDS: CARVEDILOL 12.5 MG TABLET (FP) PO SCH ×2 (09:16→22:13)
[2019-08-18] MEDS: ASPIRIN COATED 81 MG TABLET.EC PO SCH (09:16)
--- NOTE | 2019-08-18 09:21 | PN ---
Progress Note (short form) - Note Progress Note: Chief Complaint: Events noted, notes reviewed, complaining of left arm discomfort, denies any chest pain or dyspnea History of Present Illness: Seen and examined on telemetry. Events noted, notes reviewed, complaining of left arm discomfort, denies any chest pain or dyspnea - Current Medication List Current Medications: Active Medications Current Medications Acetaminophen (Tylenol -) 325 mg PO Q4H PRN PRN Reason: PAIN LEVEL 1-5 Stop: 08/20/19 14:46 Last Admin: 08/18/19 04:13 Dose: 325 mg Aspirin (Ecotrin -) 81 mg PO DAILY [facility] Last Admin: 08/18/19 09:16 Dose: 81 mg Atorvastatin Calcium (Lipitor -) 80 mg PO [facility] Last Admin: 08/17/19 21:52 Dose: 80 mg Carvedilol (Coreg -) 12.5 mg PO BID [facility] Last Admin: 08/18/19 09:16 Dose: 12.5 mg Donepezil HCl (Aricept -) 10 mg PO [facility] Epoetin Judson (Procrit -) 3,000 unit IVPUSH ONCE [facility] Last Admin: 08/17/19 23:56 Dose: Not Given Insulin Aspart (Novolog Vial Sliding Scale -) 1 vial SQ Q6HPO [facility]; Protocol Last Admin: 08/18/19 06:47 Dose: Not Given Lisinopril (Prinivil) 5 mg PO [facility] Last Admin: 08/17/19 21:52 Dose: 5 mg Ondansetron HCl (Zofran Injection) 4 mg IVPUSH Q6H PRN PRN Reason: NAUSEA AND/OR VOMITING Stop: 08/18/19 14:45 Oxycodone HCl (Roxicodone -) 5 mg PO Q4H PRN PRN Reason: PAIN LEVEL 1-5 Last Admin: 08/18/19 09:15 Dose: 5 mg Tamsulosin HCl (Flomax -) 0.4 mg PO DAILY@0830 [facility] Last Admin: 08/18/19 09:15 Dose: 0.4 mg - Review of Systems Constitutional: denies: Chills, Fever Cardiovascular: As noted above Respiratory: denies: Cough or Hemoptysis Gastrointestinal: denies: Abdominal Pain, Constipation, Diarrhea, Melena, Nausea , Rectal Bleeding, Vomiting Musculoskeletal: denies: Back Pain Neurological: denies: Unsteady Gait, Weakness. denies: Dizziness, Headache, Seizure, Syncope - Objective Vital Signs: Last Vital Signs Temp Pulse Resp BP Pulse Ox 98.8 F 69 18 128/54 L 96 08/18/19 06:00 08/18/19 06:00 08/18/19 09:00 08/18/19 06:00 08/18/19 09:00 Intake & Output 08/15/19 08/16/19 08/17/19 08/18/19 23:59 23:59 23:59 23:59 Intake Total 620 1100 100 Output Total 2000 1500 Balance -1380 -400 100 Weight 136 lb 0.4 oz 136 lb 0.4 oz 133 lb 9.6 oz HEENT: Atraumatic Neck: Supple Negative JVD Cardiovascular: S1 S2 Regular Rate and Rhythm Respiratory: Diminished Breath Sounds at the Bases Gastrointestinal: Soft Benign Normal Bowel Sounds Ext: No Edema Labs: CBC, BMP 08/18/19 05:40 08/18/19 05:40 Hepatic Panel Total Bilirubin 0.4 mg/dL (0.2-1) 08/18/19 05:40 AST 22 U/L (15-37) 08/18/19 05:40 ALT 25 U/L (13-61) 08/18/19 05:40 Alkaline Phosphatase 108 U/L (45-117) 08/18/19 05:40 Albumin 2.0 g/dl (3.4-5.0) L 08/18/19 05:40 INR, PTT INR 1.13 (0.83-1.09) H 08/17/19 05:23 Assessment/Plan 1. Chest pain syndrome referable to acute on chronic class I-II NYHA classification systolic/diastolic LV failure, precipitated by hypertensive urgency, resolved 2. Hypertensive urgency, hypertensive cardiovascular disease 3. CAD post NV angina pectoris with evidence of demand ischemic injury 4. Ischemic dilated cardiomyopathy 5. Paroxysmal atrial fibrillation currently in sinus rhythm currently [id number] score of 3 6. ESRD on HD 7. Anemia 8. Altered mental status, resolved PLAN: 1. HD as per renal service 2. Continue Carvedilol 3. Continue Prinivil and may consider Entresto, as outpatient 4. Continue Lipitor 5. As outlined in the prior note to initiate Eliquis as an alterative to Coumadin once hemostasis is achieved with close monitoring of CBC 6. Patient is to F/U in our office post D/C for further cardiac care (patient will require prophylactic ICD implant- preferably subcutaneous ICD/[employer] considering his low LVEF) Víctor Adams MD
--- NOTE | 2019-08-18 10:00 | PN ---
Teaching Attending Note Name of Resident: Jassi Gomez ATTENDING PHYSICIAN STATEMENT I saw and evaluated the patient. I reviewed the resident's note and discussed the case with the resident. I agree with the resident's findings and plan as documented. SUBJECTIVE: Patient is c/o left arm discomfort, denies any chest pain or dyspnea . OBJECTIVE: Vital Signs Temperature 98.8 F 08/18/19 06:00 Pulse Rate 69 08/18/19 06:00 Respiratory Rate 18 08/18/19 09:00 Blood Pressure 128/54 L 08/18/19 06:00 O2 Sat by Pulse Oximetry (%) 96 08/18/19 09:00 GENERAL: The patient is awake, alert, and fully oriented, in no acute distress. HEAD: Normal with no signs of trauma. EYES: PERRL, extraocular movements intact, sclera anicteric, conjunctiva clear. ENT: Ears normal, oropharynx clear without exudates, moist mucous membranes. NECK: Trachea midline, full range of motion, supple. LUNGS: Breath sounds equal, clear to auscultation bilaterally, no wheezes, no crackles, no accessory muscle use. HEART: Regular rate and rhythm, S1, S2 without murmur, rub or gallop. ABDOMEN: Soft, nontender, nondistended, normoactive bowel sounds, no guarding, no rebound, no hepatosplenomegaly, no masses. EXTREMITIES: 2+ pulses, warm, well-perfused, AV fistula, shily. NEUROLOGICAL: Cranial nerves II through XII grossly intact. Normal speech, gait not observed. PSYCH: Normal mood, normal affect. SKIN: Warm, dry, normal turgor, no rashes or lesions noted CBCD WBC 6.1 K/mm3 (4.0-10.0) 08/18/19 05:40 RBC 2.78 M/mm3 (4.00-5.60) L 08/18/19 05:40 Hgb 8.6 GM/dL (11.7-16.9) L 08/18/19 05:40 Hct 25.6 % (35.4-49) L 08/18/19 05:40 MCV 92.1 fl (80-96) 08/18/19 05:40 MCHC 33.5 g/dl (32.0-35.9) 08/18/19 05:40 RDW 15.2 % (11.9-15.9) 08/18/19 05:40 Plt Count 175 K/MM3 (134-434) 08/18/19 05:40 MPV 9.0 fl (7.5-11.1) 08/18/19 05:40 CMP Sodium 139 mmol/L (136-145) 08/18/19 05:40 Potassium 4.0 mmol/L (3.5-5.1) 08/18/19 05:40 Chloride 105 mmol/L (98-107) 08/18/19 05:40 Carbon Dioxide 28 mmol/L (21-32) 08/18/19 05:40 Anion Gap 6 MMOL/L (8-16) L 08/18/19 05:40 BUN 53.4 mg/dL (7-18) H 08/18/19 05:40 Creatinine 8.3 mg/dL (0.55-1.3) H* 08/18/19 05:40 Random Glucose 106 mg/dL (74-106) 08/18/19 05:40 Calcium 7.8 mg/dL (8.5-10.1) L 08/18/19 05:40 Total Bilirubin 0.4 mg/dL (0.2-1) 08/18/19 05:40 AST 22 U/L (15-37) 08/18/19 05:40 ALT 25 U/L (13-61) 08/18/19 05:40 Alkaline Phosphatase 108 U/L (45-117) 08/18/19 05:40 Total Protein 4.6 g/dl (6.4-8.2) L 08/18/19 05:40 Albumin 2.0 g/dl (3.4-5.0) L 08/18/19 05:40 CARDIAC ENZYMES Creatine Kinase 202 U/L (26-308) 08/17/19 05:23 Troponin I 0.19 ng/ml (0.00-0.05) H 08/17/19 05:23 Current Medications Generic Name Dose Route Start Last Admin Trade Name Freq PRN Reason Stop Dose Admin Acetaminophen 325 mg 08/17/19 14:47 08/18/19 04:13 Tylenol - PO 08/20/19 14:46 325 mg Q4H PRN Administration PAIN LEVEL 1-5 Aspirin 81 mg 08/18/19 10:00 08/18/19 09:16 Ecotrin - PO 81 mg DAILY [facility] Administration Atorvastatin Calcium 80 mg 08/17/19 22:00 08/17/19 21:52 Lipitor - PO 80 mg HS [facility] Administration Carvedilol 12.5 mg 08/17/19 22:00 08/18/19 09:16 Coreg - PO 12.5 mg BID [facility] Administration Donepezil HCl 10 mg 08/18/19 22:00 Aricept - PO HS [facility] Epoetin Judson 3,000 unit 08/17/19 23:59 08/17/19 23:56 Procrit - IVPUSH Not Given ONCE [facility] Insulin Aspart 1 vial 08/17/19 18:00 08/18/19 06:47 Novolog Vial Sliding Scale - SQ Not Given Q6HPO [facility] Protocol Lisinopril 5 mg 08/17/19 22:00 08/17/19 21:52 Prinivil PO 5 mg HS [facility] Administration Ondansetron HCl 4 mg 08/17/19 14:46 Zofran Injection IVPUSH 08/18/19 14:45 Q6H PRN NAUSEA AND/OR VOMITING Oxycodone HCl 5 mg 08/17/19 14:47 08/18/19 09:15 Roxicodone - PO 5 mg Q4H PRN Administration PAIN LEVEL 1-5 Tamsulosin HCl 0.4 mg 08/18/19 08:30 08/18/19 09:15 Flomax - PO 0.4 mg DAILY@0830 [facility] Administration Home Medications Medication Instructions Recorded Donepezil HCl [Aricept -] 10 mg PO DAILY 04/22/18 Tamsulosin HCl [Flomax -] 0.4 mg PO DAILY 04/22/18 Aspirin [Aspirin EC] 81 mg PO DAILY 07/17/18 Carvedilol [Coreg -] 12.5 mg PO BID 07/17/18 Lisinopril 5 mg PO HS 07/17/18 Atorvastatin Ca [Lipitor] 80 mg PO HS 09/25/18 Betamethasone/Propylene Glyc 30 ml TP BID 09/25/18 [Betamethasone Dp Aug 0.05% Lot] Calcium Acetate [Phoslo -] 667 mg PO TIDCM 09/25/18 Acetaminophen W/ Codeine #3 1 tab PO Q6H PRN #20 tablet MDD 4 09/26/18 [Tylenol # 3 -] Laboratory Tests 08/16/19 08/16/19 08/17/19 15:22 23:15 05:23 Hemoglobin A1c % Troponin I 0.14 H 0.17 H 0.19 H 08/17/19 05:23 Hemoglobin A1c % 5.3 Troponin I ECG show sinus rhythm with occasional PVCs, no acute ischemic changes, HR 91 Qtc 484, repeat similar with elevated Qtc 505 echo on 04/23/2019: left ventricle moderately enlarged, left ventricular systolic function is moderate to severely reduced. Mild aortic regurgitation left atrium mildly dilated right ventricular systolic function is mildly reduced. ASSESSMENT/PLAN: 63 year old male with a past medical history of coronary artery disease, multiple MIs in the past (denies catheterizations), end stage renal disease (on dialysis MWF), hypertension is admitted for clotted L sided AVF #Thrombosed AV Fistula: s/p Percutaneous thrombectomy left arm fistula. Venoplasty AV fistula by Dr. Russ. cardiology is consulted for clearance of the procedure also mild elevation of troponin. left arm pain due to the procedure. #End-Stage Renal Disease: on dialysis MWF, dr Oleary is his commercial relationship manager following the patient. #Troponinemia: due to demand ischemia vs poor renal clearance, CKMB normal, patient has chronic elevated troponin of 0.14--> 0.17-->0.19 , evaluated by manager sas, last echo 2017 . #Coronary Artery Disease: multiple MIs in the past, continue ASA/atorvastatin #Hypertension UNcontrolled : continue coreg 12.5 BID, lisinopril 5 daily #Diabetes Mellitus: sugars controlled continue with SS with coverage s/p NPO for AVF repair DVT Prophylaxis: SCDs
--- NOTE | 2019-08-18 16:32 | PN ---
Progress Note (short form) - Note Progress Note: 63M s/p Percutaneous thrombectomy left arm fistula, Venoplasty AV fistula under MAC. No new c/o. Vital Signs Temperature 97.8 F 08/18/19 14:00 Pulse Rate 67 08/18/19 14:00 Respiratory Rate 16 08/18/19 14:00 Blood Pressure 114/55 L 08/18/19 14:00 O2 Sat by Pulse Oximetry (%) 96 08/18/19 11:20 Current Medications Generic Name Dose Route Start Last Admin Trade Name Freq PRN Reason Stop Dose Admin Acetaminophen 325 mg 08/17/19 14:47 08/18/19 04:13 Tylenol - PO 08/20/19 14:46 325 mg Q4H PRN Administration PAIN LEVEL 1-5 Aspirin 81 mg 08/18/19 10:00 08/18/19 09:16 Ecotrin - PO 81 mg DAILY [facility] Administration Atorvastatin Calcium 80 mg 08/17/19 22:00 08/17/19 21:52 Lipitor - PO 80 mg HS [facility] Administration Carvedilol 12.5 mg 08/17/19 22:00 08/18/19 09:16 Coreg - PO 12.5 mg BID [facility] Administration Donepezil HCl 10 mg 08/18/19 22:00 Aricept - PO HS [facility] Epoetin Judson 3,000 unit 08/17/19 23:59 08/17/19 23:56 Procrit - IVPUSH Not Given ONCE [facility] Insulin Aspart 1 vial 08/17/19 18:00 08/18/19 12:07 Novolog Vial Sliding Scale - SQ Not Given Q6HPO [facility] Protocol Lisinopril 5 mg 08/17/19 22:00 08/17/19 21:52 Prinivil PO 5 mg HS [facility] Administration Oxycodone HCl 5 mg 08/17/19 14:47 08/18/19 16:24 Roxicodone - PO 5 mg Q4H PRN Administration PAIN LEVEL 1-5 Tamsulosin HCl 0.4 mg 08/18/19 08:30 08/18/19 09:15 Flomax - PO 0.4 mg DAILY@0830 [facility] Administration -No anesthetic complications -Care per primary service
[2019-08-18] MEDS: ATORVASTATIN CA 80 MG TABLET (FP) PO SCH (22:12)
[2019-08-18] MEDS: LISINOPRIL 5 MG TABLET (FP) PO SCH (22:12)
[2019-08-18] MEDS: DONEPEZIL HCL 10 MG TABLET (FP) PO SCH (22:13)
[2019-08-18] MEDS: EPOETIN ALFA 3,000 UNIT/1 ML ML IVPUSH SCH (23:29)
[2019-08-19] MEDS: oxyCODONE HCL 5 MG TABLET PO PRN ×3 (00:44→22:07)
[2019-08-19] MEDS: INSULIN SLIDING SCALE (NOVOLOG) 1 VIAL SQ SCH ×3 (05:59→17:10)
--- NOTE | 2019-08-19 08:09 | PN ---
Teaching Attending Note Name of Resident: Yolanda Henry ATTENDING PHYSICIAN STATEMENT I saw and evaluated the patient. I reviewed the resident's note and discussed the case with the resident. I agree with the resident's findings and plan as documented. SUBJECTIVE: Patient continues to have left arm pain s/p procedure OBJECTIVE: Vital Signs Temperature 98.8 F 08/19/19 06:00 Pulse Rate 70 08/19/19 06:00 Respiratory Rate 18 08/19/19 06:00 Blood Pressure 112/56 L 08/19/19 06:00 O2 Sat by Pulse Oximetry (%) 95 08/18/19 21:00 GENERAL: The patient is awake, alert, and fully oriented, in no acute distress. HEAD: Normal with no signs of trauma. EYES: PERRL, extraocular movements intact, sclera anicteric, conjunctiva clear. ENT: Ears normal, oropharynx clear without exudates, moist mucous membranes. NECK: Trachea midline, full range of motion, supple. LUNGS: Breath sounds equal, clear to auscultation bilaterally, no wheezes, no crackles, no accessory muscle use. HEART: Regular rate and rhythm, S1, S2 without murmur, rub or gallop. ABDOMEN: Soft, nontender, nondistended, normoactive bowel sounds, no guarding, no rebound, no hepatosplenomegaly, no masses. EXTREMITIES: 2+ pulses, warm, well-perfused, AV fistula, shily. NEUROLOGICAL: Cranial nerves II through XII grossly intact. Normal speech, gait not observed. PSYCH: Normal mood, normal affect. SKIN: Warm, dry, normal turgor, no rashes or lesions noted CBCD WBC 6.1 K/mm3 (4.0-10.0) 08/18/19 05:40 RBC 2.78 M/mm3 (4.00-5.60) L 08/18/19 05:40 Hgb 8.6 GM/dL (11.7-16.9) L 08/18/19 05:40 Hct 25.6 % (35.4-49) L 08/18/19 05:40 MCV 92.1 fl (80-96) 08/18/19 05:40 MCHC 33.5 g/dl (32.0-35.9) 08/18/19 05:40 RDW 15.2 % (11.9-15.9) 08/18/19 05:40 Plt Count 175 K/MM3 (134-434) 08/18/19 05:40 MPV 9.0 fl (7.5-11.1) 08/18/19 05:40 CMP Sodium 139 mmol/L (136-145) 08/18/19 05:40 Potassium 4.0 mmol/L (3.5-5.1) 08/18/19 05:40 Chloride 105 mmol/L (98-107) 08/18/19 05:40 Carbon Dioxide 28 mmol/L (21-32) 08/18/19 05:40 Anion Gap 6 MMOL/L (8-16) L 08/18/19 05:40 BUN 53.4 mg/dL (7-18) H 08/18/19 05:40 Creatinine 8.3 mg/dL (0.55-1.3) H* 08/18/19 05:40 Random Glucose 106 mg/dL (74-106) 08/18/19 05:40 Calcium 7.8 mg/dL (8.5-10.1) L 08/18/19 05:40 Total Bilirubin 0.4 mg/dL (0.2-1) 08/18/19 05:40 AST 22 U/L (15-37) 08/18/19 05:40 ALT 25 U/L (13-61) 08/18/19 05:40 Alkaline Phosphatase 108 U/L (45-117) 08/18/19 05:40 Total Protein 4.6 g/dl (6.4-8.2) L 08/18/19 05:40 Albumin 2.0 g/dl (3.4-5.0) L 08/18/19 05:40 CARDIAC ENZYMES Creatine Kinase 202 U/L (26-308) 08/17/19 05:23 Troponin I 0.19 ng/ml (0.00-0.05) H 08/17/19 05:23 Current Medications Generic Name Dose Route Start Last Admin Trade Name Freq PRN Reason Stop Dose Admin Acetaminophen 325 mg 08/17/19 14:47 08/18/19 04:13 Tylenol - PO 08/20/19 14:46 325 mg Q4H PRN Administration PAIN LEVEL 1-5 Aspirin 81 mg 08/18/19 10:00 08/18/19 09:16 Ecotrin - PO 81 mg DAILY [facility] Administration Atorvastatin Calcium 80 mg 08/17/19 22:00 08/18/19 22:12 Lipitor - PO 80 mg HS [facility] Administration Carvedilol 12.5 mg 08/17/19 22:00 08/18/19 22:13 Coreg - PO 12.5 mg BID [facility] Administration Donepezil HCl 10 mg 08/18/19 22:00 08/18/19 22:13 Aricept - PO 10 mg HS [facility] Administration Epoetin Judson 3,000 unit 08/17/19 23:59 08/18/19 23:29 Procrit - IVPUSH Not Given ONCE [facility] Insulin Aspart 1 vial 08/17/19 18:00 08/19/19 05:59 Novolog Vial Sliding Scale - SQ Not Given Q6HPO [facility] Protocol Lisinopril 5 mg 08/17/19 22:00 08/18/19 22:12 Prinivil PO 5 mg HS [facility] Administration Oxycodone HCl 5 mg 08/17/19 14:47 08/19/19 00:44 Roxicodone - PO 5 mg Q4H PRN Administration PAIN LEVEL 1-5 Tamsulosin HCl 0.4 mg 08/18/19 08:30 08/18/19 09:15 Flomax - PO 0.4 mg DAILY@0830 [facility] Administration Home Medications Medication Instructions Recorded Donepezil HCl [Aricept -] 10 mg PO DAILY 04/22/18 Tamsulosin HCl [Flomax -] 0.4 mg PO DAILY 04/22/18 Aspirin [Aspirin EC] 81 mg PO DAILY 07/17/18 Carvedilol [Coreg -] 12.5 mg PO BID 07/17/18 Lisinopril 5 mg PO HS 07/17/18 Atorvastatin Ca [Lipitor] 80 mg PO HS 09/25/18 Betamethasone/Propylene Glyc 30 ml TP BID 09/25/18 [Betamethasone Dp Aug 0.05% Lot] Calcium Acetate [Phoslo -] 667 mg PO TIDCM 09/25/18 Acetaminophen W/ Codeine #3 1 tab PO Q6H PRN #20 tablet MDD 4 09/26/18 [Tylenol # 3 -] ECG show sinus rhythm with occasional PVCs, no acute ischemic changes, HR 91 Qtc 484, repeat similar with elevated Qtc 505 echo on 04/23/2019: left ventricle moderately enlarged, left ventricular systolic function is moderate to severely reduced. Mild aortic regurgitation left atrium mildly dilated right ventricular systolic function is mildly reduced. ASSESSMENT/PLAN: Patient is a 63 year old male with a past medical history of coronary artery disease, multiple MIs in the past (denies catheterizations), ESRD (on dialysis MWF), HTN is admitted for thrombosed L sided AVF #Thrombosed AV Fistula: s/p Percutaneous thrombectomy left arm fistula, Venoplasty AV fistula by Dr. Russ. cardiology is consulted for clearance of the procedure also mild elevation of troponin. left arm pain due to the procedure. post dialysis patient will be discharged home #ESRD on HD: on dialysis MWF, dr Oleary is his glassware defect repairer following the patient. #Troponinemia: due to demand ischemia vs poor renal clearance, CKMB normal, patient has chronic elevated troponin of 0.14--> 0.17-->0.19 , evaluated by hospitality intern, last echo 2018 . #Coronary Artery Disease: multiple MIs in the past, continue ASA/atorvastatin #Hypertension UNcontrolled : continue coreg 12.5 BID, lisinopril 5 daily #Diabetes Mellitus: sugars controlled continue with SS with coverage DVT Prophylaxis: SCDs
[2019-08-19] MEDS: ASPIRIN COATED 81 MG TABLET.EC PO SCH (09:47)
[2019-08-19 09:48] LABS: BLOOD UREA NITROGEN 63.5 mg/dL (7-18); POTASSIUM 4.2 mmol/L (3.5-5.1)
[2019-08-19] MEDS: ACETAMINOPHEN 325 MG TABLET (FP) PO PRN ×2 (09:48→22:06)
[2019-08-19] MEDS: TAMSULOSIN HCL 0.4 MG CAP PO SCH (09:48)
[2019-08-19] MEDS: CARVEDILOL 12.5 MG TABLET (FP) PO SCH ×2 (09:49→22:06)
[2019-08-19 09:54] LABS: CREATININE 10.4 mg/dL (0.55-1.3)
--- NOTE | 2019-08-19 10:41 | PN ---
Progress Note, Physician History of Present Illness: POD#2 63M s/p Percutaneous thrombectomy left arm fistula, Venoplasty AV fistula now with LUE pain and swelling. He is currently chest pain free, denies dyspnea , palpitations, near or true syncope, orthopnea, PND or LE edema. Coumadin stopped after he stopped f/u with cardiology at [facility]. - Current Medication List Current Medications: Active Medications Acetaminophen (Tylenol -) 325 mg PO Q4H PRN PRN Reason: PAIN LEVEL 1-5 Stop: 08/20/19 14:46 Last Admin: 08/19/19 09:48 Dose: 325 mg Aspirin (Ecotrin -) 81 mg PO DAILY [facility] Last Admin: 08/19/19 09:47 Dose: 81 mg Atorvastatin Calcium (Lipitor -) 80 mg PO HS [facility] Last Admin: 08/18/19 22:12 Dose: 80 mg Carvedilol (Coreg -) 12.5 mg PO BID [facility] Last Admin: 08/19/19 09:49 Dose: 12.5 mg Donepezil HCl (Aricept -) 10 mg PO HS [facility] Last Admin: 08/18/19 22:13 Dose: 10 mg Epoetin Judson (Procrit -) 3,000 unit IVPUSH ONCE [facility] Last Admin: 08/18/19 23:29 Dose: Not Given Insulin Aspart (Novolog Vial Sliding Scale -) 1 vial SQ Q6HPO [facility]; Protocol Last Admin: 08/19/19 05:59 Dose: Not Given Lisinopril (Prinivil) 5 mg PO [facility] Last Admin: 08/18/19 22:12 Dose: 5 mg Oxycodone HCl (Roxicodone -) 5 mg PO Q4H PRN PRN Reason: PAIN LEVEL 1-5 Last Admin: 08/19/19 09:47 Dose: 5 mg Tamsulosin HCl (Flomax -) 0.4 mg PO DAILY@0830 [facility] Last Admin: 08/19/19 09:48 Dose: 0.4 mg - Objective Vital Signs: Vital Signs Temperature 98.8 F 08/19/19 06:00 Pulse Rate 70 08/19/19 06:00 Respiratory Rate 18 08/19/19 06:00 Blood Pressure 112/56 L 08/19/19 06:00 O2 Sat by Pulse Oximetry (%) 95 08/18/19 21:00 Constitutional: Yes: No Distress, Calm, Thin Neck: Yes: Supple Cardiovascular: Yes: Regular Rate and Rhythm Respiratory: Yes: Regular, Diminished, On Nasal O2 Gastrointestinal: Yes: Normal Bowel Sounds, Soft Edema: No Labs: CBC, BMP 08/18/19 05:40 08/19/19 08:49 INR, PTT INR 1.13 (0.83-1.09) H 08/17/19 05:23 - ....Imaging EKG: Report Reviewed (Tele: NSR occ PVC) Problem List - Problems (1) AV fistula occlusion Code(s): T82.898A - OT COMPLICATION OF VASCULAR PROSTH DEV/GRFT, INIT Qualifiers: Encounter type: initial encounter Qualified Code(s): T82.898A - Other specified complication of vascular prosthetic devices, implants and grafts, initial encounter (2) Chest pain Code(s): R07.9 - CHEST PAIN, UNSPECIFIED Qualifiers: Chest pain type: unspecified Qualified Code(s): R07.9 - Chest pain, unspecified (3) Acute on chronic systolic (congestive) heart failure Code(s): I50.23 - ACUTE ON CHRONIC SYSTOLIC (CONGESTIVE) HEART FAILURE (4) Anemia Code(s): D64.9 - ANEMIA, UNSPECIFIED Qualifiers: Anemia type: due to chronic kidney disease (5) CAD (coronary artery disease) Code(s): I25.10 - ATHSCL HEART DISEASE OF [place] CORONARY ARTERY W/O ANG PCTRS Qualifiers: Coronary Disease-Associated Artery/Lesion type: ione artery [place] vs. transplanted heart: ione heart Associated angina: without angina Qualified Code(s): I25.10 - Atherosclerotic heart disease of [place] coronary artery without angina pectoris (6) End stage renal disease Code(s): N18.6 - END STAGE RENAL DISEASE (7) Hyperlipidemia Code(s): E78.5 - HYPERLIPIDEMIA, UNSPECIFIED Qualifiers: Hyperlipidemia type: pure hypercholesterolemia Qualified Code(s): E78.00 - Pure hypercholesterolemia, unspecified; E78.0 - Pure hypercholesterolemia (8) Ischemic cardiomyopathy Code(s): I25.5 - ISCHEMIC CARDIOMYOPATHY (9) Old inferolateral myocardial infarction Code(s): I25.2 - OLD MYOCARDIAL INFARCTION (10) Paroxysmal atrial fibrillation Code(s): I48.0 - PAROXYSMAL ATRIAL FIBRILLATION Assessment/Plan January 17, 2015 R&LHc @ [facility]: 3 vessel CAD with [employer] RVA and OM2, elevated right and left heart pressures January 19, 2015 Echo: Mod LVH moderate decreased LVEF 40% with AK inferior and inferoseptal, mild AR, MR, mild LAE January 22, 2015 Lexiscan Myoview: Dense scar inferior wall, large lateral ischemia, inferolateral AK, LVEF 30% January 21, 2015 Rest and redistribution Thallium: Scar involving entire inferior wall, basal to mid inferolateral, basal inferoseptal, and apex, no significant hibernating myocardiaum, dilated LV with severely decreased LVEF 27% April 23, 2018 Echo: Moderately dilated with moderate-severe decreased LV fxn, mild decreased RV fxn, mild AR, mild LAE 1. Chest pain referable to 2. Acute on chronic diastolic/systolic failure and pulmonary edema referable to 3. Hypertensive urgency in context of medical indiscretion 4. CAD s/p NC, demand ischemic injury 5. Ischemic cardiomyopathy (moderate-severe) 6. ESRD on HD MWF POD#2 percutaneous thrombectomy left arm fistula, Venoplasty AV fistula under MAC 7. Paroxysmal atrial fibrillation now in SR [id number] score of 3 off a/c w/o cards f/u 8. Anemia of CKD P:1. Volume removal via UF/HD 2. Continue carvedilol 12.5 bid, lisinopril 5 qd, Lipitor 80 qd, and ASA 81 qd, consideration for switch to Entresto after LV fxn reassessment 3. Previously on coumadin per INR, recommend change Eliquis 2.5 bid and d/c ASA once post-op hemostasis assured 4. O2 to maintain saturation 5. Pt prefers to f/u locally in our office (patient will require prophylactic ICD implant- preferably subcutaneous ICD/[employer] considering his low LVEF once compliance is confirmed)
[2019-08-19 10:51] LABS: BASO % 1.2 % (0-2.0); HEMATOCRIT 27.2 % (35.4-49); HEMOGLOBIN 8.8 GM/dL (11.7-16.9); LYMPH % 7.3 % (8-40); MCH 30.1 pg (25.7-33.7); MCHC 32.1 g/dl (32.0-35.9); MEAN CELL VOLUME 93.6 fl (80-96); MEAN PLT VOLUME 8.8 fl (7.5-11.1); MONO % 6.3 % (3.8-10.2); NEUT % 82.2 % (42.8-82.8); PLATELET COUNT 187 K/MM3 (134-434); RBC 2.91 M/mm3 (4.00-5.60); WHITE BLOOD COUNT 7.8 K/mm3 (4.0-10.0)
[2019-08-19 14:28] VITALS: BMI 19.6
--- NOTE | 2019-08-19 15:31 | PN ---
Physical Exam: SUBJECTIVE: Patient seen and examined. pain in thrombectomy site responsive to pain regimen. otherwise pt offered no complaints OBJECTIVE: Vital Signs Period Temp Pulse Resp BP Sys/Wyatt Pulse Ox Last 24 Hr 97.8 F-99.0 F 56-78 16-18 107-140/53-72 94-96 GENERAL: The patient is awake, alert, and fully oriented, in mild distress. HEAD: Normal with no signs of trauma. EYES: PERRL, extraocular movements intact, sclera anicteric, conjunctiva clear. No ptosis. ENT: oropharynx clear without exudates, moist mucous membranes. LUNGS: Breath sounds equal, clear to auscultation bilaterally, no wheezes, no crackles, no accessory muscle use. HEART: Regular rate and rhythm, S1, S2 without murmur, rub or gallop. ABDOMEN: Soft, nontender, nondistended, normoactive bowel sounds, no guarding, no rebound, no hepatosplenomegaly, no masses. EXTREMITIES: 2+ pulses, warm, well-perfused, edema and tenderness on L arm thrombectomy site. Laboratory Results - last 24 hr 08/18/19 08/18/19 08/19/19 16:18 23:11 05:23 WBC RBC Hgb Hct MCV MCH MCHC RDW Plt Count MPV Absolute Neuts (auto) Neutrophils % Lymphocytes % Monocytes % Eosinophils % Basophils % Nucleated RBC % Sodium Potassium Chloride Carbon Dioxide Anion Gap BUN Creatinine Est GFR (CKD-EPI)AfAm Est GFR (CKD-EPI)NonAf POC Glucometer 115 108 99 Random Glucose Calcium 08/19/19 08/19/19 08/19/19 08:49 10:35 11:50 WBC 7.8 RBC 2.91 L Hgb 8.8 L Hct 27.2 L MCV 93.6 MCH 30.1 MCHC 32.1 RDW 15.0 Plt Count 187 MPV 8.8 Absolute Neuts (auto) 6.4 Neutrophils % 82.2 Lymphocytes % 7.3 L D Monocytes % 6.3 Eosinophils % 3.0 Basophils % 1.2 Nucleated RBC % 0 Sodium 139 Potassium 4.2 Chloride 101 Carbon Dioxide 28 Anion Gap 10 BUN 63.5 H Creatinine 10.4 H* Est GFR (CKD-EPI)AfAm 5.41 Est GFR (CKD-EPI)NonAf 4.67 POC Glucometer 105 Random Glucose 100 Calcium 8.0 L Active Medications Generic Name Dose Route Start Last Admin Trade Name Freq PRN Reason Stop Dose Admin Acetaminophen 325 mg 08/17/19 14:47 08/19/19 09:48 Tylenol - PO 08/20/19 14:46 325 mg Q4H PRN Administration PAIN LEVEL 1-5 Aspirin 81 mg 08/18/19 10:00 08/19/19 09:47 Ecotrin - PO 81 mg DAILY [facility] Administration Atorvastatin Calcium 80 mg 08/17/19 22:00 08/18/19 22:12 Lipitor - PO 80 mg HS [facility] Administration Carvedilol 12.5 mg 08/17/19 22:00 08/19/19 09:49 Coreg - PO 12.5 mg BID [facility] Administration Donepezil HCl 10 mg 08/18/19 22:00 08/18/19 22:13 Aricept - PO 10 mg HS [facility] Administration Epoetin Judson 3,000 unit 08/17/19 23:59 08/18/19 23:29 Procrit - IVPUSH Not Given ONCE [facility] Insulin Aspart 1 vial 08/17/19 18:00 08/19/19 11:51 Novolog Vial Sliding Scale - SQ Not Given Q6HPO [facility] Protocol Lisinopril 5 mg 08/17/19 22:00 08/18/19 22:12 Prinivil PO 5 mg HS [facility] Administration Oxycodone HCl 5 mg 08/17/19 14:47 08/19/19 09:47 Roxicodone - PO 5 mg Q4H PRN Administration PAIN LEVEL 1-5 Tamsulosin HCl 0.4 mg 08/18/19 08:30 08/19/19 09:48 Flomax - PO 0.4 mg DAILY@0830 [facility] Administration ASSESSMENT/PLAN: 63 year old male with a past medical history of coronary artery disease, multiple MIs in the past (denies catheterizations), end stage renal disease (on dialysis MWF), hypertension is admitted for clotted L sided AVF Clotted AV Fistula POD2 s/p thrombectomy oxycodone for pain new dialysis site in R groin End-Stage Renal Disease: on dialysis MW s/p HD today monitor BMP Dr Oleary will follow pt Coronary Artery Disease multiple MIs in the past continue ASA/atorvastatin Per Cardio continue carvedilol 12.5 bid, lisinopril 5 qd, Lipitor 80 qd, and ASA 81 qd, consideration for switch to Entresto after LV fxn reassessment Previously on coumadin per INR, recommend change Eliquis 2.5 bid and d/c ASA once post-op hemostasis assured Hypertension BP elevated on admission continue coreg 12.5 BID continue lisinopril 5 daily Diabetes Mellitus BGMs ISS FEN no standing fluids check lytes in AM Prophylaxis SCDs Visit type - Emergency Visit Emergency Visit: Yes ED Registration Date: 08/16/19 Care time: The patient presented to the Emergency Department on the above date and was hospitalized for further evaluation of their emergent condition. - New Patient This patient is new to me today: Yes Date on this admission: 08/19/19 - Critical Care Critical Care patient: No - Discharge Referral Referred to [facility] Med P.C.: No ATTENDING PHYSICIAN STATEMENT I saw and evaluated the patient. I reviewed the resident's note and discussed the case with the resident. I agree with the resident's findings and plan as documented. SUBJECTIVE: OBJECTIVE: ASSESSMENT AND PLAN:
--- NOTE | 2019-08-19 16:40 | PN ---
Progress Note (short form) - Note Progress Note: Complains of pain in left arm Left upper arm local edema, pulse in fistula. Dialyzed with femoral catheter today. He cannot be discharged until he has dialysis through the fistula and catheter is removed.
--- NOTE | 2019-08-19 21:17 | OP ---
DATE OF OPERATION: 08/17/2019 SURGEON: Suraj Russ MD PROCEDURE: Percutaneous suction thrombectomy of left arm arteriovenous fistula. Venoplasty of the arteriovenous fistula. PREOPERATIVE DIAGNOSIS: Thrombosed arteriovenous fistula. POSTOPERATIVE DIAGNOSIS: Thrombosed arteriovenous fistula, with multiple severe stenoses in the fistula. ANESTHESIA: Fractional. ANESTHESIOLOGIST: Gavin Mauricio MD OPERATIVE FINDINGS: The AV fistula is thrombosed. Following suction thrombectomy, multiple severe stenoses were seen extending from the axillary vein to the arteriovenous anastomosis. OPERATIVE PROCEDURE: Following routine patient identification with side and site verification, intravenous sedation was established. The left arm was prepped with ChloraPrep. Timeout was performed. Using realtime duplex imaging, the fistula in the left distal upper arm was identified. Lidocaine was infiltrated in the skin over the vein and was cannulated under ultrasound guidance with a micropuncture needle. A wire was passed proximally and the needle exchanged for a 5-[place] catheter. An angled-tip Glidewire was then advanced into the vein and the catheter exchanged for a short 7-[place] sheath. The patient was systemically heparinized. The angled wire and catheter were then advanced proximally into the central veins and venography performed with the above-noted findings. The wire was replaced. AngioJet was then used to perform suction thrombectomy of the proximal portion of the vein. In addition, a number 4 Gely catheter was used to remove residual thrombus from the vein through the sheath. Venography was performed and the stenoses in the vein were identified. The vein was then balloon dilated with an 8 mm x 10 cm balloon using pressure insufflator. The vein was then filled with heparin saline solution. The sheath was removed and bleeding controlled with a mattress suture of 3-0 nylon. The vein was then re-accessed in the proximal arm directed distally and a 7-[place] sheath placed in a similar fashion. The wire and catheter were then advanced distally through the arteriovenous anastomosis, and an angiogram of the brachial artery obtained, showing intact distal flow. The AngioJet was then used on the distal portion of the vein, and repeat imaging revealed multiple stenoses in this section of the vein. The vein was again dilated with a 7-mm balloon from the arterial anastomosis back to the sheath. Repeat imaging revealed return of pulsatile arterial flow throughout the fistula, with multiple areas of irregular luminal contour but no significant stenoses. The sheath was removed and bleeding controlled with a mattress suture of nylon. Sterile dressings were applied and the patient was taken to the recovery room in stable condition. Nancy WAGNER/[id number]
[2019-08-19] MEDS: ATORVASTATIN CA 80 MG TABLET (FP) PO SCH (22:06)
[2019-08-19] MEDS: DONEPEZIL HCL 10 MG TABLET (FP) PO SCH (22:06)
[2019-08-19] MEDS: LISINOPRIL 5 MG TABLET (FP) PO SCH (22:09)
[2019-08-19] MEDS: EPOETIN ALFA 3,000 UNIT/1 ML ML IVPUSH SCH (23:41)
[2019-08-20] MEDS: INSULIN SLIDING SCALE (NOVOLOG) 1 VIAL SQ SCH ×2 (01:50→06:42)
[2019-08-20 07:02] LABS: BLOOD UREA NITROGEN 50.7 mg/dL (7-18); CALCIUM 8.3 mg/dL (8.5-10.1); POTASSIUM 4.4 mmol/L (3.5-5.1)
[2019-08-20 07:20] LABS: CREATININE 8.5 mg/dL (0.55-1.3)
--- NOTE | 2019-08-20 07:21 | PN ---
Progress Note (short form) - Note Progress Note: POD #3 s/p Percutaneous thrombectomy left arm fistula. Venoplasty AV fistula Patient had HD yesterday via femoral shiley due LUE pain. Spoke with HD and they will attempt to use AVF tomorrow.
--- NOTE | 2019-08-20 07:40 | PN ---
Progress Note (short form) - Note Progress Note: RENAL LEFT ARM AVF REVISED POS BRUIT BUT SWOLLEN UNABLE TO USE UT YET BECAUSE OF PAIN AND SWELLING DIALYZED VIA RT GROIN GWENDOLYN YESTERDAY 2 KG REMOVED FEEL ASHLEIGH CHEST CLEAR EXT NO EDEMA HB 8.8 REDOSE PROCRIT 10K SQ TODAY REASSESS ARM IN AM
[2019-08-20 07:59] LABS: BASO % 0.6 % (0-2.0); EOS % 3.7 % (0-4.5); HEMATOCRIT 27.1 % (35.4-49); LYMPH % 11.8 % (8-40); MCH 30.7 pg (25.7-33.7); MEAN CELL VOLUME 93.1 fl (80-96); MEAN PLT VOLUME 9.3 fl (7.5-11.1); MONO % 7.7 % (3.8-10.2); NEUT % 76.2 % (42.8-82.8); PLATELET COUNT 194 K/MM3 (134-434); RBC 2.92 M/mm3 (4.00-5.60); RDW 15.1 % (11.9-15.9); WHITE BLOOD COUNT 6.1 K/mm3 (4.0-10.0)
[2019-08-20] MEDS ORDERED: EPOETIN ALFA 10,000 UNIT/1 ML VIAL SQ ONE (08:00)
[2019-08-20] MEDS: TAMSULOSIN HCL 0.4 MG CAP PO SCH (09:58)
[2019-08-20] MEDS: ASPIRIN COATED 81 MG TABLET.EC PO SCH (09:58)
[2019-08-20] MEDS: CARVEDILOL 12.5 MG TABLET (FP) PO SCH ×2 (10:00→21:09)
[2019-08-20] MEDS: oxyCODONE HCL 5 MG TABLET PO PRN ×2 (10:03→21:12)
[2019-08-20] MEDS ORDERED: DOCUSATE SODIUM 100 MG CAPSULE (FP) PO SCH (10:30)
[2019-08-20] MEDS: DOCUSATE SODIUM 100 MG CAPSULE (FP) PO SCH ×2 (11:17→21:09)
--- NOTE | 2019-08-20 11:18 | PN ---
Progress Note, Physician Chief Complaint: POD#3 Percutaneous thrombectomy left arm fistula and Venoplasty AV fistula History of Present Illness: Patient was seen and examined. Awake and alert. Chart was reviewed Complains of pain and has ice pack on the arm Denies chest pain. SOB or palpitations - Current Medication List Current Medications: Active Medications Acetaminophen (Tylenol -) 325 mg PO Q4H PRN PRN Reason: PAIN LEVEL 1-5 Stop: 08/20/19 14:46 Last Admin: 08/19/19 22:06 Dose: 325 mg Aspirin (Ecotrin -) 81 mg PO DAILY [facility] Last Admin: 08/20/19 09:58 Dose: 81 mg Atorvastatin Calcium (Lipitor -) 80 mg PO [facility] Last Admin: 08/19/19 22:06 Dose: 80 mg Carvedilol (Coreg -) 12.5 mg PO BID [facility] Last Admin: 08/20/19 10:00 Dose: 12.5 mg Docusate Sodium (Colace -) 100 mg PO BID [facility] Last Admin: 08/20/19 11:17 Dose: 100 mg Donepezil HCl (Aricept -) 10 mg PO HS [facility] Last Admin: 08/19/19 22:06 Dose: 10 mg Epoetin Judson (Procrit -) 3,000 unit IVPUSH ONCE [facility] Last Admin: 08/19/19 23:41 Dose: Not Given Lisinopril (Prinivil) 5 mg PO [facility] Last Admin: 08/19/19 22:09 Dose: 5 mg Oxycodone HCl (Roxicodone -) 5 mg PO Q4H PRN PRN Reason: PAIN LEVEL 1-5 Last Admin: 08/20/19 10:03 Dose: 5 mg Tamsulosin HCl (Flomax -) 0.4 mg PO DAILY@0830 [facility] Last Admin: 08/20/19 09:58 Dose: 0.4 mg - Objective Vital Signs: Vital Signs Temperature 98.8 F 08/20/19 06:00 Pulse Rate 66 08/20/19 06:00 Respiratory Rate 18 08/20/19 07:49 Blood Pressure 126/58 L 08/20/19 06:00 O2 Sat by Pulse Oximetry (%) 97 08/20/19 07:49 Eyes: Yes: PERRL HENT: Yes: Atraumatic Neck: Yes: Supple Cardiovascular: Yes: Regular Rate and Rhythm, S1, S2 Respiratory: Yes: CTA Bilaterally Gastrointestinal: Yes: Normal Bowel Sounds, Soft. No: Tenderness Edema: No Additional Findings/Remarks: - Review of Systems Constitutional: denies: Chills, Fever Cardiovascular: denies Chest Pain. denies: Palpitations, Shortness of Breath Respiratory: denies: Cough, Hemoptysis, Orthopnea, PND, SOB, SOB on Exertion Gastrointestinal: denies: Abdominal Pain, Constipation, Diarrhea, Melena, Nausea , Rectal Bleeding, Vomiting Neurological: denies Dizziness, Headache. denies: Seizure, Syncope Labs: CBC, BMP 08/20/19 06:40 08/20/19 06:20 Problem List - Problems (1) AV fistula occlusion Code(s): T82.898A - OT COMPLICATION OF VASCULAR PROSTH DEV/GRFT, INIT Qualifiers: Encounter type: initial encounter Qualified Code(s): T82.898A - Other specified complication of vascular prosthetic devices, implants and grafts, initial encounter (2) Chest pain Code(s): R07.9 - CHEST PAIN, UNSPECIFIED Qualifiers: Chest pain type: unspecified Qualified Code(s): R07.9 - Chest pain, unspecified (3) Paroxysmal atrial fibrillation Code(s): I48.0 - PAROXYSMAL ATRIAL FIBRILLATION (4) Pre-operative cardiovascular examination, left ventricular ejection fraction < 35% Code(s): Z01.810 - ENCOUNTER FOR PREPROCEDURAL CARDIOVASCULAR EXAMINATION; I51.89 - OTHER ILL-DEFINED HEART DISEASES (5) Acute on chronic systolic (congestive) heart failure Code(s): I50.23 - ACUTE ON CHRONIC SYSTOLIC (CONGESTIVE) HEART FAILURE (6) Anemia Code(s): D64.9 - ANEMIA, UNSPECIFIED Qualifiers: Anemia type: due to chronic kidney disease (7) CAD (coronary artery disease) Code(s): I25.10 - ATHSCL HEART DISEASE OF [place] CORONARY ARTERY W/O ANG PCTRS Qualifiers: Coronary Disease-Associated Artery/Lesion type: [place] artery [place] vs. transplanted heart: [place] heart Associated angina: without angina Qualified Code(s): I25.10 - Atherosclerotic heart disease of [place] coronary artery without angina pectoris (8) End stage renal disease Code(s): N18.6 - END STAGE RENAL DISEASE (9) Hyperlipidemia Code(s): E78.5 - HYPERLIPIDEMIA, UNSPECIFIED Qualifiers: Hyperlipidemia type: pure hypercholesterolemia Qualified Code(s): E78.00 - Pure hypercholesterolemia, unspecified; E78.0 - Pure hypercholesterolemia (10) Hypertensive cardiomyopathy Code(s): I11.9 - HYPERTENSIVE HEART DISEASE WITHOUT HEART FAILURE; I43 - CARDIOMYOPATHY IN DISEASES CLASSIFIED ELSEWHERE Qualifiers: Heart failure presence: with heart failure Qualified Code(s): I11.0 - Hypertensive heart disease with heart failure; I43 - Cardiomyopathy in diseases classified elsewhere (11) Ischemic cardiomyopathy Code(s): I25.5 - ISCHEMIC CARDIOMYOPATHY Assessment/Plan 1. Chest pain syndrome 2. Acute on chronic diastolic/systolic failure and pulmonary edema 3. Hypertensive urgency 4. CAD s/p [place], demand ischemia 5. Ischemic cardiomyopathy (moderate-severe) 6. ESRD on HD MWF POD#3 percutaneous thrombectomy left arm fistula and Venoplasty AV fistula 7. Paroxysmal atrial fibrillation now in sinus rhythm [id number] score of 3 8. Anemia 9. CKD PLAN: 1. Volume removal via UF/HD 2. Continue Carvedilol 12.5 mg BID, Lisinopril 5 mg QD, Lipitor 80 mg QHS and ASA 81 mg QD. Consider switching to Entresto after LV function reassessment 3. Recommend change to Eliquis 2.5 bid and discontinue ASA once post-op hemostasis achieved 4. O2 to maintain saturation 5.Follow up in our office for outpatient follow up. Further cardiac evaluation and intervention to be advised as outpatient including possible need for ICD if LVEF less than 35% Johnathan Claros MD
--- NOTE | 2019-08-20 12:22 | PN ---
Physical Exam: SUBJECTIVE: Patient seen and examined. Pt continue to endorse pain and tenderness in L arm fistula site OBJECTIVE: Vital Signs Period Temp Pulse Resp BP Sys/Wyatt Pulse Ox Last 24 Hr 97.8 F-99.2 F 56-77 18-18 107-146/50-67 97-97 GENERAL: The patient is awake, alert, and fully oriented, in mild distress. HEAD: Normal with no signs of trauma. EYES: PERRL, extraocular movements intact, sclera anicteric, conjunctiva clear. No ptosis. ENT: oropharynx clear without exudates, moist mucous membranes. LUNGS: Breath sounds equal, clear to auscultation bilaterally, no wheezes, no crackles, no accessory muscle use. HEART: Regular rate and rhythm, S1, S2 without murmur, rub or gallop. ABDOMEN: Soft, nontender, nondistended, normoactive bowel sounds, no guarding, no rebound, no hepatosplenomegaly, no masses. EXTREMITIES: 2+ pulses, warm, well-perfused, edema and tenderness on L arm thrombectomy site. Laboratory Results - last 24 hr 08/19/19 08/20/19 08/20/19 17:09 00:41 06:20 WBC RBC Hgb Hct MCV MCH MCHC RDW Plt Count MPV Absolute Neuts (auto) Neutrophils % Lymphocytes % Monocytes % Eosinophils % Basophils % Nucleated RBC % Sodium 140 Potassium 4.4 Chloride 104 Carbon Dioxide 29 Anion Gap 8 BUN 50.7 H Creatinine 8.5 H* Est GFR (CKD-EPI)AfAm 6.90 Est GFR (CKD-EPI)NonAf 5.96 POC Glucometer 95 111 Random Glucose 114 H Calcium 8.3 L 08/20/19 08/20/19 06:39 06:40 WBC 6.1 RBC 2.92 L Hgb 9.0 L Hct 27.1 L MCV 93.1 MCH 30.7 MCHC 33.0 RDW 15.1 Plt Count 194 MPV 9.3 Absolute Neuts (auto) 4.7 Neutrophils % 76.2 Lymphocytes % 11.8 D Monocytes % 7.7 Eosinophils % 3.7 Basophils % 0.6 Nucleated RBC % 0 Sodium Potassium Chloride Carbon Dioxide Anion Gap BUN Creatinine Est GFR (CKD-EPI)AfAm Est GFR (CKD-EPI)NonAf POC Glucometer 101 Random Glucose Calcium Active Medications Generic Name Dose Route Start Last Admin Trade Name Freq PRN Reason Stop Dose Admin Acetaminophen 325 mg 08/17/19 14:47 08/19/19 22:06 Tylenol - PO 08/20/19 14:46 325 mg Q4H PRN Administration PAIN LEVEL 1-5 Aspirin 81 mg 08/18/19 10:00 08/20/19 09:58 Ecotrin - PO 81 mg DAILY [facility] Administration Atorvastatin Calcium 80 mg 08/17/19 22:00 08/19/19 22:06 Lipitor - PO 80 mg HS [facility] Administration Carvedilol 12.5 mg 08/17/19 22:00 08/20/19 10:00 Coreg - PO 12.5 mg BID [facility] Administration Docusate Sodium 100 mg 08/20/19 10:30 08/20/19 11:17 Colace - PO 100 mg BID [facility] Administration Donepezil HCl 10 mg 08/18/19 22:00 08/19/19 22:06 Aricept - PO 10 mg HS [facility] Administration Epoetin Judson 3,000 unit 08/17/19 23:59 08/19/19 23:41 Procrit - IVPUSH Not Given ONCE [facility] Lisinopril 5 mg 08/17/19 22:00 08/19/19 22:09 Prinivil PO 5 mg HS [facility] Administration Oxycodone HCl 5 mg 08/17/19 14:47 08/20/19 10:03 Roxicodone - PO 5 mg Q4H PRN Administration PAIN LEVEL 1-5 Tamsulosin HCl 0.4 mg 08/18/19 08:30 08/20/19 09:58 Flomax - PO 0.4 mg DAILY@0830 [facility] Administration ASSESSMENT/PLAN: 63 year old male with a past medical history of coronary artery disease, multiple MIs in the past (denies catheterizations), end stage renal disease (on dialysis MWF), hypertension is admitted for clotted L sided AVF Clotted AV Fistula pt continues to have pain. ice pack is helping along with pain meds POD 3 s/p thrombectomy oxycodone and tylenol for pain new temp dialysis site in R groin until L AVF site ready for use End-Stage Renal Disease: on dialysis MW Per Nephro, will attempt dialysis in L AVF tomorrow procrit 10k unit once rec by nephro monitor BMP Dr Saboor following pt Coronary Artery Disease multiple MIs in the past continue ASA/atorvastatin Per Cardio continue carvedilol 12.5 bid, lisinopril 5 qd, Lipitor 80 qd, and ASA 81 qd, consideration for switch to Entresto after LV fxn reassessment Previously on coumadin per INR, recommend change Eliquis 2.5 bid and d/c ASA once post-op hemostasis assured Hypertension BP elevated on admission continue coreg 12.5 BID continue lisinopril 5 daily FEN no standing fluids monitor renal diet Prophylaxis SCDs Visit type - Emergency Visit Emergency Visit: Yes ED Registration Date: 08/16/19 Care time: The patient presented to the Emergency Department on the above date and was hospitalized for further evaluation of their emergent condition. - New Patient This patient is new to me today: No - Critical Care Critical Care patient: No - Discharge Referral Referred to [facility] No ATTENDING PHYSICIAN STATEMENT I saw and evaluated the patient. I reviewed the resident's note and discussed the case with the resident. I agree with the resident's findings and plan as documented. SUBJECTIVE: OBJECTIVE: ASSESSMENT AND PLAN:
[2019-08-20] MEDS: EPOETIN ALFA 2,000 UNIT/1 ML VIAL IVPUSH SCH (19:03)
--- NOTE | 2019-08-20 20:34 | PN ---
Teaching Attending Note Name of Resident: Yolanda Henry ATTENDING PHYSICIAN STATEMENT I saw and evaluated the patient. I reviewed the resident's note and discussed the case with the resident. I agree with the resident's findings and plan as documented. SUBJECTIVE: Patient continues to have left arm pain s/p avf thrombectomy. OBJECTIVE: Vital Signs Temperature 99.0 F 08/20/19 18:00 Pulse Rate 65 08/20/19 18:00 Respiratory Rate 18 08/20/19 20:17 Blood Pressure 126/52 L 08/20/19 18:00 O2 Sat by Pulse Oximetry (%) 92 L 08/20/19 20:17 GENERAL: The patient is awake, alert, and fully oriented, in no acute distress. HEAD: Normal with no signs of trauma. EYES: PERRL, extraocular movements intact, sclera anicteric, conjunctiva clear. ENT: Ears normal, oropharynx clear without exudates, moist mucous membranes. NECK: Trachea midline, full range of motion, supple. LUNGS: Breath sounds equal, clear to auscultation bilaterally, no wheezes, no crackles, no accessory muscle use. HEART: Regular rate and rhythm, S1, S2 without murmur, rub or gallop. ABDOMEN: Soft, nontender, nondistended, normoactive bowel sounds, no guarding, no rebound, no hepatosplenomegaly, no masses. EXTREMITIES: 2+ pulses, warm, well-perfused, AV fistula left arm , permacath on the right groin. NEUROLOGICAL: Cranial nerves II through XII grossly intact. Normal speech, gait not observed. PSYCH: Normal mood, normal affect. SKIN: Warm, dry, normal turgor, no rashes or lesions noted CBCD WBC 6.1 K/mm3 (4.0-10.0) 08/20/19 06:40 RBC 2.92 M/mm3 (4.00-5.60) L 08/20/19 06:40 Hgb 9.0 GM/dL (11.7-16.9) L 08/20/19 06:40 Hct 27.1 % (35.4-49) L 08/20/19 06:40 MCV 93.1 fl (80-96) 08/20/19 06:40 MCHC 33.0 g/dl (32.0-35.9) 08/20/19 06:40 RDW 15.1 % (11.9-15.9) 08/20/19 06:40 Plt Count 194 K/MM3 (134-434) 08/20/19 06:40 MPV 9.3 fl (7.5-11.1) 08/20/19 06:40 CMP Sodium 140 mmol/L (136-145) 08/20/19 06:20 Potassium 4.4 mmol/L (3.5-5.1) 08/20/19 06:20 Chloride 104 mmol/L (98-107) 08/20/19 06:20 Carbon Dioxide 29 mmol/L (21-32) 08/20/19 06:20 Anion Gap 8 MMOL/L (8-16) 08/20/19 06:20 BUN 50.7 mg/dL (7-18) H 08/20/19 06:20 Creatinine 8.5 mg/dL (0.55-1.3) H* 08/20/19 06:20 Random Glucose 114 mg/dL (74-106) H 08/20/19 06:20 Calcium 8.3 mg/dL (8.5-10.1) L 08/20/19 06:20 Total Bilirubin 0.4 mg/dL (0.2-1) 08/18/19 05:40 AST 22 U/L (15-37) 08/18/19 05:40 ALT 25 U/L (13-61) 08/18/19 05:40 Alkaline Phosphatase 108 U/L (45-117) 08/18/19 05:40 Total Protein 4.6 g/dl (6.4-8.2) L 08/18/19 05:40 Albumin 2.0 g/dl (3.4-5.0) L 08/18/19 05:40 CARDIAC ENZYMES Creatine Kinase 202 U/L (26-308) 08/17/19 05:23 Troponin I 0.19 ng/ml (0.00-0.05) H 08/17/19 05:23 Current Medications Generic Name Dose Route Start Last Admin Trade Name Freq PRN Reason Stop Dose Admin Aspirin 81 mg 08/18/19 10:00 08/20/19 09:58 Ecotrin - PO 81 mg DAILY [facility] Administration Atorvastatin Calcium 80 mg 08/17/19 22:00 08/19/19 22:06 Lipitor - PO 80 mg HS [facility] Administration Carvedilol 12.5 mg 08/17/19 22:00 08/20/19 10:00 Coreg - PO 12.5 mg BID [facility] Administration Docusate Sodium 100 mg 08/20/19 10:30 08/20/19 11:17 Colace - PO 100 mg BID [facility] Administration Donepezil HCl 10 mg 08/18/19 22:00 08/19/19 22:06 Aricept - PO 10 mg HS [facility] Administration Epoetin Judson 3,000 unit 08/17/19 23:59 08/19/19 23:41 Procrit - IVPUSH Not Given ONCE [facility] Lisinopril 5 mg 08/17/19 22:00 08/19/19 22:09 Prinivil PO 5 mg HS [facility] Administration Oxycodone HCl 5 mg 08/17/19 14:47 08/20/19 10:03 Roxicodone - PO 5 mg Q4H PRN Administration PAIN LEVEL 1-5 Tamsulosin HCl 0.4 mg 08/18/19 08:30 08/20/19 09:58 Flomax - PO 0.4 mg DAILY@0830 [facility] Administration Home Medications Medication Instructions Recorded Donepezil HCl [Aricept -] 10 mg PO DAILY 04/22/18 Tamsulosin HCl [Flomax -] 0.4 mg PO DAILY 04/22/18 Aspirin [Aspirin EC] 81 mg PO DAILY 07/17/18 Carvedilol [Coreg -] 12.5 mg PO BID 07/17/18 Lisinopril 5 mg PO HS 07/17/18 Atorvastatin Ca [Lipitor] 80 mg PO HS 09/25/18 Betamethasone/Propylene Glyc 30 ml TP BID 09/25/18 [Betamethasone Dp Aug 0.05% Lot] Calcium Acetate [Phoslo -] 667 mg PO TIDCM 09/25/18 Acetaminophen W/ Codeine #3 1 tab PO Q6H PRN #20 tablet MDD 4 09/26/18 [Tylenol # 3 -] Amlodipine Besylate 10 mg PO DAILY 08/19/19 Lisinopril 10 mg PO HS 08/19/19 ECG show sinus rhythm with occasional PVCs, no acute ischemic changes, HR 91 Qtc 484, repeat similar with elevated Qtc 505 echo on 04/23/2019: left ventricle moderately enlarged, left ventricular systolic function is moderate to severely reduced. Mild aortic regurgitation left atrium mildly dilated right ventricular systolic function is mildly reduced. ASSESSMENT/PLAN: Patient is a 63 year old male with a past medical history of coronary artery disease, multiple MIs in the past (denies catheterizations), ESRD (on dialysis MWF), HTN is admitted for thrombosed L sided AVF #Thrombosed AV Fistula: s/p Percutaneous thrombectomy left arm fistula, Venoplasty AV fistula by Dr. Russ. cardiology for cardiac clearance since mild elevation of troponin. left arm pain due to the procedure. Post dialysis patient will be discharged home, once AVF can be used for dialysis. #ESRD on HD: on dialysis MWF, dr Oleary is his nursery nurse following the patient. #Troponinemia: due to demand ischemia vs poor renal clearance, CKMB normal, patient has chronic elevated troponin of 0.14--> 0.17-->0.19 , evaluated by terminal block assembler, last echo 2018 . #Coronary Artery Disease: multiple MIs in the past, continue ASA/atorvastatin #Hypertension UNcontrolled : continue coreg 12.5 BID, lisinopril 5 daily #Diabetes Mellitus: sugars controlled continue with SS with coverage DVT Prophylaxis: SCDs
[2019-08-20] MEDS: ATORVASTATIN CA 80 MG TABLET (FP) PO SCH (21:09)
[2019-08-20] MEDS: DONEPEZIL HCL 10 MG TABLET (FP) PO SCH (21:09)
[2019-08-20] MEDS: LISINOPRIL 5 MG TABLET (FP) PO SCH (21:09)
[2019-08-21] MEDS: EPOETIN ALFA 3,000 UNIT/1 ML ML IVPUSH SCH ×2 (00:13→23:07)
[2019-08-21] MEDS: oxyCODONE HCL 5 MG TABLET PO PRN ×3 (06:17→21:33)
--- NOTE | 2019-08-21 08:16 | PN ---
Progress Note (short form) - Note Progress Note: Pt seen and examined. Reports he is still having pain/edema in his LUE. Has not had HD through AVF yet. Denies motor/sensory deficits. Vital Signs Temp 98.9 F 08/21/19 06:00 Pulse 72 08/21/19 06:00 Resp 20 08/21/19 06:00 BP 137/67 08/21/19 06:00 Pulse Ox 92 L 08/20/19 20:17 Intake & Output 08/20/19 08/20/19 08/21/19 11:59 23:59 11:59 Intake Total 120 1150 120 Balance 120 1150 120 Weight 134 lb 6 oz 136 lb 8 oz Intake: Oral 120 1150 120 Other: Voiding Method Urinal Toilet # Unmeasured Voids Void 3 Bowel Movement No No Weight Measurement Method Standing Scale Standing Scale CBC, BMP 08/20/19 06:40 08/20/19 06:20 Gen: awake, alert, nad Resp: unlabored Ext: LUE with localized edema from elbow to just above AVF bandaids, dressings c /d/i, AVF with palpable thrill. +TTP. Director Specialty strength and SILT intact. Palpable radial pulse A/P: 63 y/o M w/ PMHx CAD, multiple MIs in the past (denies catheterizations), end stage renal disease (on dialysis MWF via LUE AVF), hypertension admitted on 08/16/19 for clotted AVF now s/p Percutaneous thrombectomy left arm fistula. Venoplasty AV fistula on 08/17. LUE with localized edema, avf with palpable thrill -Plan for HD today, may attempt to use AVF -If functional pt may be d/c per medical team once shiley has been removed -Please contact surgical team if any issues -Should f/u with Dr Russ in the office in 7 days -Discussed with RN as it appears shiley was used for HD today. Pt cannot be discharged until AVF is used for HD to ensure it is working properly. -Groin shiley was placed Monday and needs to be removed FRAN to avoid line infection. rachael attending Dr Russ
[2019-08-21] MEDS ORDERED: PT OWN MED DRAWER 7, Y5N ONE (08:52)
[2019-08-21] MEDS: TAMSULOSIN HCL 0.4 MG CAP PO SCH (09:02)
[2019-08-21] MEDS: DOCUSATE SODIUM 100 MG CAPSULE (FP) PO SCH ×2 (09:02→21:33)
[2019-08-21] MEDS: CARVEDILOL 12.5 MG TABLET (FP) PO SCH ×2 (09:02→21:32)
[2019-08-21] MEDS: ASPIRIN COATED 81 MG TABLET.EC PO SCH (09:02)
--- NOTE | 2019-08-21 09:27 | PN ---
Progress Note, Physician History of Present Illness: POD#4 63M s/p Percutaneous thrombectomy left arm fistula, Venoplasty AV fistula still with LUE pain and swelling, undergoing HD via groin line. He is currently chest pain free, denies dyspnea, palpitations, near or true syncope, orthopnea, PND or LE edema. Coumadin stopped after he stopped f/u with cardiology at [facility]. - Current Medication List Current Medications: Active Medications Aspirin (Ecotrin -) 81 mg PO DAILY [facility] Last Admin: 08/21/19 09:02 Dose: 81 mg Atorvastatin Calcium (Lipitor -) 80 mg PO [facility] Last Admin: 08/20/19 21:09 Dose: 80 mg Carvedilol (Coreg -) 12.5 mg PO BID [facility] Last Admin: 08/21/19 09:02 Dose: 12.5 mg Docusate Sodium (Colace -) 100 mg PO BID [facility] Last Admin: 08/21/19 09:02 Dose: 100 mg Donepezil HCl (Aricept -) 10 mg PO HS [facility] Last Admin: 08/20/19 21:09 Dose: 10 mg Epoetin Judson (Procrit -) 3,000 unit IVPUSH ONCE [facility] Last Admin: 08/21/19 00:13 Dose: Not Given Lisinopril (Prinivil) 5 mg PO [facility] Last Admin: 08/20/19 21:09 Dose: 5 mg Oxycodone HCl (Roxicodone -) 5 mg PO Q4H PRN PRN Reason: PAIN LEVEL 1-5 Last Admin: 08/21/19 06:17 Dose: 5 mg Tamsulosin HCl (Flomax -) 0.4 mg PO DAILY@0830 [facility] Last Admin: 08/21/19 09:02 Dose: 0.4 mg - Objective Vital Signs: Vital Signs Temperature 98.9 F 08/21/19 06:00 Pulse Rate 72 08/21/19 06:00 Respiratory Rate 20 08/21/19 06:00 Blood Pressure 137/67 08/21/19 06:00 O2 Sat by Pulse Oximetry (%) 92 L 08/20/19 20:17 Constitutional: Yes: No Distress, Calm, Thin Neck: Yes: Supple Cardiovascular: Yes: Regular Rate and Rhythm Respiratory: Yes: Regular, Diminished, On Nasal O2 Gastrointestinal: Yes: Soft, Hypoactive Bowel Sounds Edema: No Labs: CBC, BMP 08/20/19 06:40 08/20/19 06:20 INR, PTT INR 1.13 (0.83-1.09) H 08/17/19 05:23 Problem List - Problems (1) AV fistula occlusion Code(s): T82.898A - [facility] COMPLICATION OF VASCULAR PROSTH DEV/GRFT, INIT Qualifiers: Encounter type: initial encounter Qualified Code(s): T82.898A - Other specified complication of vascular prosthetic devices, implants and grafts, initial encounter (2) Chest pain Code(s): R07.9 - CHEST PAIN, UNSPECIFIED Qualifiers: Chest pain type: unspecified Qualified Code(s): R07.9 - Chest pain, unspecified (3) Acute on chronic systolic (congestive) heart failure Code(s): I50.23 - ACUTE ON CHRONIC SYSTOLIC (CONGESTIVE) HEART FAILURE (4) Anemia Code(s): D64.9 - ANEMIA, UNSPECIFIED Qualifiers: Anemia type: due to chronic kidney disease (5) CAD (coronary artery disease) Code(s): I25.10 - ATHSCL HEART DISEASE OF [place] CORONARY ARTERY W/O ANG PCTRS Qualifiers: Coronary Disease-Associated Artery/Lesion type: [place] artery [place] vs. transplanted heart: [place] heart Associated angina: without angina Qualified Code(s): I25.10 - Atherosclerotic heart disease of [place] coronary artery without angina pectoris (6) End stage renal disease Code(s): N18.6 - END STAGE RENAL DISEASE (7) Hyperlipidemia Code(s): E78.5 - HYPERLIPIDEMIA, UNSPECIFIED Qualifiers: Hyperlipidemia type: pure hypercholesterolemia Qualified Code(s): E78.00 - Pure hypercholesterolemia, unspecified; E78.0 - Pure hypercholesterolemia (8) Ischemic cardiomyopathy Code(s): I25.5 - ISCHEMIC CARDIOMYOPATHY (9) Old inferolateral myocardial infarction Code(s): I25.2 - OLD MYOCARDIAL INFARCTION (10) Paroxysmal atrial fibrillation Code(s): I48.0 - PAROXYSMAL ATRIAL FIBRILLATION Assessment/Plan January 17, 2015 R&LHc @ [facility]: 3 vessel CAD with BLAST FURNACE KEEPER RVA and OM2, elevated right and left heart pressures January 19, 2015 Echo: Mod LVH moderate decreased LVEF 40% with AK inferior and inferoseptal, mild AR, MR, mild LAE January 22, 2015 Lexiscan Myoview: Dense scar inferior wall, large lateral ischemia, inferolateral AK, LVEF 30% January 21, 2015 Rest and redistribution Thallium: Scar involving entire inferior wall, basal to mid inferolateral, basal inferoseptal, and apex, no significant hibernating myocardiaum, dilated LV with severely decreased LVEF 27% April 23, 2018 Echo: Moderately dilated with moderate-severe decreased LV fxn, mild decreased RV fxn, mild AR, mild LAE 1. Chest pain syndrome 2. Acute on chronic diastolic/systolic failure and pulmonary edema 3. Hypertensive urgency 4. CAD s/p [place], demand ischemia 5. Ischemic cardiomyopathy (moderate-severe) 6. ESRD on HD MWF POD#4 percutaneous thrombectomy left arm fistula and Venoplasty AV fistula 7. Paroxysmal atrial fibrillation now in sinus rhythm [id number] score of 3 8. Anemia 9. CKD PLAN: 1. Volume removal via UF/HD 2. Continue Carvedilol 12.5 mg BID, Lisinopril 5 mg QD, Lipitor 80 mg QHS and ASA 81 mg QD. Consider switching to Entresto after LV function reassessment 3. Recommend change to Eliquis 2.5 bid and discontinue ASA once post-op hemostasis achieved 4. O2 to maintain saturation 5. Follow up in our office for outpatient follow up. Further cardiac evaluation and intervention to be advised as outpatient including possible need for ICD if LVEF less than 35%
--- NOTE | 2019-08-21 14:16 | PN ---
Physical Exam: SUBJECTIVE: Patient seen and examined. pt continues to c/o pain and tenderness at AVF site OBJECTIVE: Vital Signs Period Temp Pulse Resp BP Sys/Wyatt Pulse Ox Last 24 Hr 98.2 F-99.3 F 60-76 18-20 117-139/51-67 92-92 GENERAL: The patient is awake, alert, and fully oriented, in mild distress. HEAD: Normal with no signs of trauma. EYES: PERRL, extraocular movements intact, sclera anicteric, conjunctiva clear. No ptosis. ENT: oropharynx clear without exudates, moist mucous membranes. LUNGS: Breath sounds equal, clear to auscultation bilaterally, no wheezes, no crackles, no accessory muscle use. HEART: Regular rate and rhythm, S1, S2 without murmur, rub or gallop. ABDOMEN: Soft, nontender, nondistended, normoactive bowel sounds, no guarding, no rebound, no hepatosplenomegaly, no masses. EXTREMITIES: 2+ pulses, warm, well-perfused, edema and tenderness on L arm thrombectomy site. Active Medications Generic Name Dose Route Start Last Admin Trade Name Freq PRN Reason Stop Dose Admin Aspirin 81 mg 08/18/19 10:00 08/21/19 09:02 Ecotrin - PO 81 mg DAILY SHERON Administration Atorvastatin Calcium 80 mg 08/17/19 22:00 08/20/19 21:09 Lipitor - PO 80 mg HS SHERON Administration Carvedilol 12.5 mg 08/17/19 22:00 08/21/19 09:02 Coreg - PO 12.5 mg BID SHERON Administration Docusate Sodium 100 mg 08/20/19 10:30 08/21/19 09:02 Colace - PO 100 mg BID SHERON Administration Donepezil HCl 10 mg 08/18/19 22:00 08/20/19 21:09 Aricept - PO 10 mg HS SHERON Administration Epoetin Judson 3,000 unit 08/17/19 23:59 08/21/19 00:13 Procrit - IVPUSH Not Given ONCE SHERON Lisinopril 5 mg 08/17/19 22:00 08/20/19 21:09 Prinivil PO 5 mg HS SHERON Administration Oxycodone HCl 5 mg 08/17/19 14:47 08/21/19 06:17 Roxicodone - PO 5 mg Q4H PRN Administration PAIN LEVEL 1-5 Tamsulosin HCl 0.4 mg 08/18/19 08:30 08/21/19 09:02 Flomax - PO 0.4 mg DAILY@0830 SHERON Administration ASSESSMENT/PLAN: 63 year old male with a past medical history of coronary artery disease, multiple MIs in the past (denies catheterizations), end stage renal disease (on dialysis MWF), hypertension is admitted for clotted L sided AVF MRSA nare negative d/c contact precautions Clotted AV Fistula pt continues to have pain. ice pack is helping along with pain meds POD 4 s/p thrombectomy oxycodone and tylenol for pain new temp dialysis site in R groin until L AVF site ready for use End-Stage Renal Disease: on dialysis MW Per Nephro, dialysis today. AVF wasnt used due to continued pain and tenderness monitor BMP Dr Oleary following pt Coronary Artery Disease multiple MIs in the past continue ASA/atorvastatin Per Cardio continue carvedilol 12.5 bid, lisinopril 5 qd, Lipitor 80 qd, and ASA 81 qd, consideration for switch to Entresto after LV fxn reassessment Previously on coumadin per INR, recommend change Eliquis 2.5 bid and d/c ASA once post-op hemostasis assured Hypertension BP elevated on admission continue coreg 12.5 BID continue lisinopril 5 daily FEN no standing fluids monitor renal diet Prophylaxis SCDs Visit type - Emergency Visit Emergency Visit: Yes ED Registration Date: 08/16/19 Care time: The patient presented to the Emergency Department on the above date and was hospitalized for further evaluation of their emergent condition. - New Patient This patient is new to me today: No - Critical Care Critical Care patient: No - Discharge Referral Referred to [facility] Med P.C.: No ATTENDING PHYSICIAN STATEMENT I saw and evaluated the patient. I reviewed the resident's note and discussed the case with the resident. I agree with the resident's findings and plan as documented. SUBJECTIVE: OBJECTIVE: ASSESSMENT AND PLAN:
--- NOTE | 2019-08-21 16:30 | PN ---
Progress Note (short form) - Note Progress Note: RENAL LEFT ARM AVF REVISED POS BRUIT BUT REMAINS SWOLLEN REQUIRING ROUND THE CLOCK NARCOTICS UNABLE TO USE IT YET BECAUSE OF PAIN AND SWELLING DIALYZED VIA RT GROIN GW[facility]OLYN DAY 6 HIPS 20 3 H K2 [employer] 2 KG CHEST CLEAR EXT NO EDEMA HB 9.6 WILL D/W DR TRIVEDI
--- NOTE | 2019-08-21 18:30 | PN ---
Teaching Attending Note Name of Resident: Deniz Loja ATTENDING PHYSICIAN STATEMENT I saw and evaluated the patient. I reviewed the resident's note and discussed the case with the resident. I agree with the resident's findings and plan as documented. SUBJECTIVE: No fever or chills. No ALEXIS , L upper arm pain . no SOB . was getting HD during interview OBJECTIVE: NAD Cv: regularly irreg . loud S2 Lungs: clear anteriorly Abd: soft, NT, ND , N BS Ext : No edema on legs . LUE qith edema, tenderness and slightly increased warmth ASSESSMENT AND PLAN: Patient is a 63 year old male with a past medical history of coronary artery disease, P A fib , s/p [place], Mod-severe CMP, EF 27 %, , ESRD (on dialysis MWF), HTN, who was admitted for thrombosed LUE fistula . 1- LUE fistula thrombosis s/p thrmbectomy 2- Acute on chronic systolic heart failure 3- elevated trop 4- h/o CAD 5- HTN 6- DM 7- h/o P Afib plan : - cont liosinpril and coreg. norvasc on hold due to transient hypotension - appreciate card input, if vascular has no contraindication , will change ASA to Eliquis 2.5 mg bid - out pt f/u for EF eval and then co nsideration of entresto - Hd today . - per sx team, next Hd , AVF has to be used and shiley has to be removed - SSI - oxy for pain, add tylenol ( scheduled ) - add Sq heparin for now
[2019-08-21] MEDS: SENNOSIDES 8.6MG TABLET (FP) PO SCH (21:32)
[2019-08-21] MEDS: DONEPEZIL HCL 10 MG TABLET (FP) PO SCH (21:32)
[2019-08-21] MEDS: LISINOPRIL 5 MG TABLET (FP) PO SCH (21:33)
[2019-08-21] MEDS: HEPARIN NA (PORCINE) 5,000 UNITS/ML 1ML VIAL SQ SCH (21:33)
[2019-08-21] MEDS: ATORVASTATIN CA 80 MG TABLET (FP) PO SCH (21:33)
[2019-08-21] MEDS: ACETAMINOPHEN 325 MG TABLET (FP) PO SCH (21:38)
[2019-08-22] MEDS: HEPARIN NA (PORCINE) 5,000 UNITS/ML 1ML VIAL SQ SCH (05:57)
[2019-08-22] MEDS: oxyCODONE HCL 5 MG TABLET PO PRN (05:57)
[2019-08-22] MEDS: ACETAMINOPHEN 325 MG TABLET (FP) PO SCH ×3 (06:02→21:24)
[2019-08-22] MEDS ORDERED: POLYETHYLENE GLYCOL 3350 119 GM BTL PO ONE (06:30)
[2019-08-22 07:06] LABS: BASO % 0.8 % (0-2.0); EOS % 4.1 % (0-4.5); HEMATOCRIT 22.8 % (35.4-49); HEMOGLOBIN 7.7 GM/dL (11.7-16.9); MCH 31.3 pg (25.7-33.7); MCHC 33.9 g/dl (32.0-35.9); MEAN CELL VOLUME 92.3 fl (80-96); MEAN PLT VOLUME 8.7 fl (7.5-11.1); MONO % 8.7 % (3.8-10.2); NEUT % 71.4 % (42.8-82.8); PLATELET COUNT 198 K/MM3 (134-434); RBC 2.47 M/mm3 (4.00-5.60); RDW 14.9 % (11.9-15.9); WHITE BLOOD COUNT 5.3 K/mm3 (4.0-10.0)
[2019-08-22 07:48] LABS: BLOOD UREA NITROGEN 50.7 mg/dL (7-18); MAGNESIUM 1.8 mg/dL (1.8-2.4); PHOSPHOROUS 5.1 mg/dL (2.5-4.9)
[2019-08-22 07:52] LABS: CREATININE 8.3 mg/dL (0.55-1.3)
[2019-08-22] MEDS: TAMSULOSIN HCL 0.4 MG CAP PO SCH (08:42)
[2019-08-22] MEDS: ASPIRIN COATED 81 MG TABLET.EC PO SCH (09:12)
[2019-08-22] MEDS: DOCUSATE SODIUM 100 MG CAPSULE (FP) PO SCH ×2 (09:13→21:24)
[2019-08-22] MEDS: CARVEDILOL 12.5 MG TABLET (FP) PO SCH ×2 (09:13→21:24)
--- NOTE | 2019-08-22 09:17 | PN ---
Progress Note, Physician History of Present Illness: POD#4 63M s/p Percutaneous thrombectomy left arm fistula, Venoplasty AV fistula with improved LUE pain and swelling, underwent HD via groin line. He is currently chest pain free, denies dyspnea, palpitations, near or true syncope, orthopnea, PND or LE edema. Coumadin stopped after he stopped f/u with cardiology at [facility]. - Current Medication List Current Medications: Active Medications Acetaminophen (Tylenol -) 650 mg PO TID [facility] Last Admin: 08/22/19 06:02 Dose: 650 mg Aspirin (Ecotrin -) 81 mg PO DAILY [facility] Last Admin: 08/22/19 09:12 Dose: 81 mg Atorvastatin Calcium (Lipitor -) 80 mg PO HS [facility] Last Admin: 08/21/19 21:33 Dose: 80 mg Carvedilol (Coreg -) 12.5 mg PO BID [facility] Last Admin: 08/22/19 09:13 Dose: 12.5 mg Docusate Sodium (Colace -) 200 mg PO BID [facility] Last Admin: 08/22/19 09:13 Dose: 200 mg Donepezil HCl (Aricept -) 10 mg PO HS [facility] Last Admin: 08/21/19 21:32 Dose: 10 mg Epoetin Judson (Procrit -) 3,000 unit IVPUSH ONCE [facility] Last Admin: 08/21/19 23:07 Dose: Not Given Heparin Sodium (Porcine) (Heparin -) 5,000 unit SQ TID [facility] Last Admin: 08/22/19 05:57 Dose: 5,000 unit Lisinopril (Prinivil) 5 mg PO [facility] Last Admin: 08/21/19 21:33 Dose: 5 mg Oxycodone HCl (Roxicodone -) 5 mg PO Q4H PRN PRN Reason: PAIN LEVEL 1-5 Last Admin: 08/22/19 05:57 Dose: 5 mg Senna (Senna -) 2 tab PO [facility] Last Admin: 08/21/19 21:32 Dose: 2 tab Tamsulosin HCl (Flomax -) 0.4 mg PO DAILY@0830 [facility] Last Admin: 08/22/19 08:42 Dose: 0.4 mg - Objective Vital Signs: Vital Signs Temperature 98.1 F 08/22/19 08:07 Pulse Rate 66 08/22/19 08:07 Respiratory Rate 16 08/22/19 08:07 Blood Pressure 119/54 L 08/22/19 08:07 O2 Sat by Pulse Oximetry (%) 97 08/21/19 20:20 Constitutional: Yes: No Distress, Calm Neck: Yes: Supple Cardiovascular: Yes: Regular Rate and Rhythm Respiratory: Yes: Regular, CTA Bilaterally Gastrointestinal: Yes: Normal Bowel Sounds, Soft Edema: No Labs: CBC, BMP 08/22/19 06:30 08/22/19 06:30 INR, PTT INR 1.13 (0.83-1.09) H 08/17/19 05:23 - ....Imaging EKG: Report Reviewed (Tele: NSR occ PVC) Problem List - Problems (1) AV fistula occlusion Code(s): T82.898A - OTH COMPLICATION OF VASCULAR PROSTH DEV/GRFT, INIT Qualifiers: Encounter type: initial encounter Qualified Code(s): T82.898A - Other specified complication of vascular prosthetic devices, implants and grafts, initial encounter (2) Chest pain Code(s): R07.9 - CHEST PAIN, UNSPECIFIED Qualifiers: Chest pain type: unspecified Qualified Code(s): R07.9 - Chest pain, unspecified (3) Acute on chronic systolic (congestive) heart failure Code(s): I50.23 - ACUTE ON CHRONIC SYSTOLIC (CONGESTIVE) HEART FAILURE (4) Anemia Code(s): D64.9 - ANEMIA, UNSPECIFIED Qualifiers: Anemia type: due to chronic kidney disease (5) CAD (coronary artery disease) Code(s): I25.10 - ATHSCL HEART DISEASE OF [place] CORONARY ARTERY W/O ANG PCTRS Qualifiers: Coronary Disease-Associated Artery/Lesion type: [place] artery [place] vs. transplanted heart: [place] heart Associated angina: without angina Qualified Code(s): I25.10 - Atherosclerotic heart disease of [place] coronary artery without angina pectoris (6) End stage renal disease Code(s): N18.6 - END STAGE RENAL DISEASE (7) Hyperlipidemia Code(s): E78.5 - HYPERLIPIDEMIA, UNSPECIFIED Qualifiers: Hyperlipidemia type: pure hypercholesterolemia Qualified Code(s): E78.00 - Pure hypercholesterolemia, unspecified; E78.0 - Pure hypercholesterolemia (8) Ischemic cardiomyopathy Code(s): I25.5 - ISCHEMIC CARDIOMYOPATHY (9) Old inferolateral myocardial infarction Code(s): I25.2 - OLD MYOCARDIAL INFARCTION (10) Paroxysmal atrial fibrillation Code(s): I48.0 - PAROXYSMAL ATRIAL FIBRILLATION Assessment/Plan January 17, 2015 R&LH @ [facility]: 3 vessel CAD with ACID TANK LINER RVA and OM2, elevated right and left heart pressures January 19, 2015 Echo: Mod LVH moderate decreased LVEF 40% with AK inferior and inferoseptal, mild AR, MR, mild LAE January 22, 2015 Lexiscan Myoview: Dense scar inferior wall, large lateral ischemia, inferolateral AK, LVEF 30% January 21, 2015 Rest and redistribution Thallium: Scar involving entire inferior wall, basal to mid inferolateral, basal inferoseptal, and apex, no significant hibernating myocardiaum, dilated LV with severely decreased LVEF 27% April 23, 2018 Echo: Moderately dilated with moderate-severe decreased LV fxn, mild decreased RV fxn, mild AR, mild LAE 1. Chest pain syndrome 2. Acute on chronic diastolic/systolic failure and pulmonary edema resolved 3. Hypertensive urgency 4. CAD s/p [place], demand ischemia 5. Ischemic cardiomyopathy (moderate-severe) 6. ESRD on HD MWF POD#5 percutaneous thrombectomy left arm fistula and Venoplasty AV fistula 7. Paroxysmal atrial fibrillation now in sinus rhythm [id number] score of 3 8. Anemia 9. CKD PLAN: 1. Volume removal with UF/HD via LUE AVF then d/c groin line tomorrow 2. Continue Carvedilol 12.5 mg BID, Lisinopril 5 mg QD, Lipitor 80 mg QHS. Consider switching to Entresto after LV function reassessment 3. Recommend change to Eliquis 2.5 bid and discontinue ASA as post-op hemostasis achieved 4. O2 to maintain saturation 5. Follow up in our office for outpatient follow up. Further cardiac evaluation and intervention to be advised as outpatient including possible need for ICD if LVEF less than 35%
--- NOTE | 2019-08-22 09:30 | PN ---
Progress Note (short form) - Note Progress Note: Pt seen this Am. Cotninues to have some pain in LUE at AVF site. Swelling improved from yesterday. Plan to use AVF tomorrow morning for HD, topical Lidocaine ordered. Plan d/w RN at HD. Please contact surgery with any questions/concerns, will f/u after HD D/w attending dr Russ
--- NOTE | 2019-08-22 13:57 | PN ---
Physical Exam: SUBJECTIVE: Patient seen and examined. No new complaints overnight. Pt. apprehensive about starting HD through L. AVF. Per discussion with Dr. Russ, can resume Eliquis tonight or in AM. Pt. will D/c ASA when starting Eliquis. OBJECTIVE: Vital Signs Period Temp Pulse Resp BP Sys/Wyatt Pulse Ox Last 24 Hr 98.1 F-99.3 F 66-87 16-20 94-136/54-70 95-97 GENERAL: The patient is awake, alert, and fully oriented, in mild distress. HEAD: Normal with no signs of trauma. EYES: PERRL, extraocular movements intact, sclera anicteric, conjunctiva clear. No ptosis. ENT: oropharynx clear without exudates, moist mucous membranes. LUNGS: Breath sounds equal, clear to auscultation bilaterally, no wheezes, no crackles, no accessory muscle use. HEART: Regular rate and rhythm, S1, S2 without murmur, rub or gallop. ABDOMEN: Soft, nontender, nondistended, normoactive bowel sounds, no guarding, no rebound, no hepatosplenomegaly, no masses. EXTREMITIES: 2+ pulses, warm, well-perfused, edema and tenderness on L arm thrombectomy site. Laboratory Results - last 24 hr 08/22/19 08/22/19 06:30 06:30 WBC 5.3 RBC 2.47 L Hgb 7.7 L Hct 22.8 L D MCV 92.3 MCH 31.3 MCHC 33.9 RDW 14.9 Plt Count 198 MPV 8.7 Absolute Neuts (auto) 3.8 Neutrophils % 71.4 Lymphocytes % 15.0 D Monocytes % 8.7 Eosinophils % 4.1 Basophils % 0.8 Nucleated RBC % 0 Sodium 138 Potassium 4.0 Chloride 102 Carbon Dioxide 29 Anion Gap 7 L BUN 50.7 H Creatinine 8.3 H* Est GFR (CKD-EPI)AfAm 7.11 Est GFR (CKD-EPI)NonAf 6.13 Random Glucose 90 Calcium 8.0 L Phosphorus 5.1 H Magnesium 1.8 Active Medications Current Medications Acetaminophen (Tylenol -) 650 mg PO TID [facility] Last Admin: 08/22/19 21:24 Dose: 650 mg Apixaban (Eliquis -) 2.5 mg PO BID [facility] Last Admin: 08/22/19 21:24 Dose: 2.5 mg Atorvastatin Calcium (Lipitor -) 80 mg PO [facility] Last Admin: 08/22/19 21:24 Dose: 80 mg Bisacodyl (Dulcolax Suppository -) 10 mg [place] DAILY [facility] Last Admin: 08/22/19 16:11 Dose: 10 mg Carvedilol (Coreg -) 12.5 mg PO BID [facility] Last Admin: 08/22/19 21:24 Dose: 12.5 mg Docusate Sodium (Colace -) 200 mg PO BID [facility] Last Admin: 08/22/19 21:24 Dose: 200 mg Donepezil HCl (Aricept -) 10 mg PO [facility] Last Admin: 08/22/19 21:24 Dose: 10 mg Epoetin Judson (Procrit -) 3,000 unit IVPUSH ONCE [facility] Last Admin: 08/23/19 00:14 Dose: Not Given Lidocaine HCl (Xylocaine 5% Top. Ointment) 1 applic TP ONCE ONE Stop: 08/23/19 06:01 Lisinopril (Prinivil) 5 mg PO [facility] Last Admin: 08/22/19 21:24 Dose: 5 mg Oxycodone HCl (Roxicodone -) 5 mg PO Q4H PRN PRN Reason: PAIN LEVEL 1-5 Last Admin: 08/22/19 05:57 Dose: 5 mg Senna (Senna -) 2 tab PO [facility] Last Admin: 08/22/19 21:24 Dose: 2 tab Tamsulosin HCl (Flomax -) 0.4 mg PO DAILY@0830 [facility] Last Admin: 08/22/19 08:42 Dose: 0.4 mg ASSESSMENT/PLAN: 63 year old male with a past medical history of coronary artery disease, multiple MIs in the past (denies catheterizations), end stage renal disease (on dialysis MWF), hypertension is admitted for clotted L sided AVF Clotted AV Fistula pt continues to have pain. ice pack is helping along with pain meds POD 4 s/p thrombectomy oxycodone and tylenol for pain new temp dialysis site in R groin until L AVF site ready for use End-Stage Renal Disease: on dialysis MW Per Nephro, dialysis today. AVF wasnt used due to continued pain and tenderness monitor BMP Dr Oleary following pt Coronary Artery Disease multiple MIs in the past continue ASA/atorvastatin--> Will D/c ASA and start Eliquis 2.5mg BID tomorrow, helld off starting Eliquis tonight because Pt. may need a new port placed if unable to tolerate L. AVF as Kristina peguero is at risk to become infected currently on day 7. Per Cardio continue carvedilol 12.5 bid, lisinopril 5 qd, Lipitor 80 qd, and ASA 81 qd, consideration for switch to Entresto after LV fxn reassessment Previously on coumadin per INR, recommend change Eliquis 2.5 bid and d/c ASA once post-op hemostasis assured Hypertension BP elevated on admission continue coreg 12.5 BID continue lisinopril 5 daily FEN no standing fluids monitor renal diet Prophylaxis SCDs ATTENDING PHYSICIAN STATEMENT I saw and evaluated the patient. I reviewed the resident's note and discussed the case with the resident. I agree with the resident's findings and plan as documented. SUBJECTIVE: OBJECTIVE: ASSESSMENT AND PLAN:
[2019-08-22] MEDS: BISACODYL 10 MG SUPP.RECT PR SCH (16:11)
--- NOTE | 2019-08-22 18:51 | PN ---
Teaching Attending Note Name of Resident: Deniz Loja ATTENDING PHYSICIAN STATEMENT I saw and evaluated the patient. I reviewed the resident's note and discussed the case with the resident. I agree with the resident's findings and plan as documented. SUBJECTIVE: No fever or chills. L upper arm pain is better OBJECTIVE: NAD Cv: irreg irreg . loud S2 Lungs: clear anteriorly Abd: soft, NT, ND , N BS Ext : No edema on legs . LUE edema, tenderness are better today . RP 2+ ASSESSMENT AND PLAN: Patient is a 63 year old male with a past medical history of coronary artery disease, P A fib , s/p [place], Mod-severe CMP, EF 27 %, , ESRD (on dialysis MWF), HTN, who was admitted for thrombosed LUE fistula . 1- LUE fistula thrombosis s/p thrombectomy 2- Acute on chronic systolic heart failure 3- elevated trop 4- h/o CAD 5- HTN 6- DM 7- h/o P Afib plan : - plan for Hd through the AVF tomorrow. - shiley to be removed tomorrow - hold off resuming eliquis to confirm if any procedure is needed . will stop asa then - cont liosinpril and coreg. norvasc on hold due to transient hypotension - out pt f/u for EF eval and then consideration of entresto - SSI - oxy and tylenol for pain - Sq heparin for now
[2019-08-22] MEDS: ATORVASTATIN CA 80 MG TABLET (FP) PO SCH (21:24)
[2019-08-22] MEDS: APIXABAN 2.5 MG TABLET PO SCH (21:24)
[2019-08-22] MEDS: LISINOPRIL 5 MG TABLET (FP) PO SCH (21:24)
[2019-08-22] MEDS: SENNOSIDES 8.6MG TABLET (FP) PO SCH (21:24)
[2019-08-22] MEDS: DONEPEZIL HCL 10 MG TABLET (FP) PO SCH (21:24)
[2019-08-23] MEDS: EPOETIN ALFA 3,000 UNIT/1 ML ML IVPUSH SCH (00:14)
[2019-08-23] MEDS: ACETAMINOPHEN 325 MG TABLET (FP) PO SCH ×3 (05:17→21:14)
[2019-08-23] MEDS ORDERED: LIDOCAINE HCL 5% TOP OINTMENT 50 GM TUBE TP ONE (06:00)
[2019-08-23 07:08] LABS: BLOOD UREA NITROGEN 68.5 mg/dL (7-18); CALCIUM 7.9 mg/dL (8.5-10.1); PHOSPHOROUS 5.8 mg/dL (2.5-4.9); POTASSIUM 4.2 mmol/L (3.5-5.1)
[2019-08-23 07:18] LABS: CREATININE 9.9 mg/dL (0.55-1.3)
[2019-08-23] MEDS ORDERED: EPOETIN ALFA 3,000 UNIT, EPOETIN ALFA 2,000 UNIT IVPUSH ONE (08:00)
--- NOTE | 2019-08-23 10:51 | PN ---
Progress Note, Physician History of Present Illness: POD#5 63M s/p Percutaneous thrombectomy left arm fistula, Venoplasty AV fistula with improved LUE pain and swelling, tolerated HD via LUE AVF, right groin line d/randa. He is currently chest pain free, denies dyspnea, palpitations, near or true syncope, orthopnea, PND or LE edema. Coumadin stopped after he stopped f/u with cardiology at [facility]. - Current Medication List Current Medications: Active Medications Acetaminophen (Tylenol -) 650 mg PO TID [facility] Last Admin: 08/23/19 05:17 Dose: 650 mg Apixaban (Eliquis -) 2.5 mg PO BID [facility] Last Admin: 08/22/19 21:24 Dose: 2.5 mg Atorvastatin Calcium (Lipitor -) 80 mg PO HS [facility] Last Admin: 08/22/19 21:24 Dose: 80 mg Bisacodyl (Dulcolax Suppository -) 10 mg [place] DAILY [facility] Last Admin: 08/22/19 16:11 Dose: 10 mg Carvedilol (Coreg -) 12.5 mg PO BID [facility] Last Admin: 08/22/19 21:24 Dose: 12.5 mg Docusate Sodium (Colace -) 200 mg PO BID [facility] Last Admin: 08/22/19 21:24 Dose: 200 mg Donepezil HCl (Aricept -) 10 mg PO [facility] Last Admin: 08/22/19 21:24 Dose: 10 mg Lisinopril (Prinivil) 5 mg PO [facility] Last Admin: 08/22/19 21:24 Dose: 5 mg Oxycodone HCl (Roxicodone -) 5 mg PO Q4H PRN PRN Reason: PAIN LEVEL 1-5 Last Admin: 08/22/19 05:57 Dose: 5 mg Senna (Senna -) 2 tab PO [facility] Last Admin: 08/22/19 21:24 Dose: 2 tab Tamsulosin HCl (Flomax -) 0.4 mg PO DAILY@0830 [facility] Last Admin: 08/22/19 08:42 Dose: 0.4 mg - Objective Vital Signs: Vital Signs Temperature 98.8 F 08/23/19 04:00 Pulse Rate 61 08/23/19 10:25 Respiratory Rate 18 08/23/19 10:25 Blood Pressure 129/56 L 08/23/19 10:25 O2 Sat by Pulse Oximetry (%) 91 L 08/23/19 09:00 Constitutional: Yes: No Distress, Calm, Thin Neck: Yes: Supple Cardiovascular: Yes: Regular Rate and Rhythm Respiratory: Yes: Regular, Diminished Gastrointestinal: Yes: Normal Bowel Sounds, Soft Edema: No Labs: CBC, BMP 08/22/19 06:30 08/23/19 05:55 INR, PTT INR 1.13 (0.83-1.09) H 08/17/19 05:23 - ....Imaging X-ray: Report Reviewed (AXR: Constipation) EKG: Report Reviewed (Tele: NSR) Problem List - Problems (1) AV fistula occlusion Code(s): T82.898A - OTH COMPLICATION OF VASCULAR PROSTH DEV/GRFT, INIT Qualifiers: Encounter type: initial encounter Qualified Code(s): T82.898A - Other specified complication of vascular prosthetic devices, implants and grafts, initial encounter (2) Chest pain Code(s): R07.9 - CHEST PAIN, UNSPECIFIED Qualifiers: Chest pain type: unspecified Qualified Code(s): R07.9 - Chest pain, unspecified (3) Acute on chronic systolic (congestive) heart failure Code(s): I50.23 - ACUTE ON CHRONIC SYSTOLIC (CONGESTIVE) HEART FAILURE (4) Anemia Code(s): D64.9 - ANEMIA, UNSPECIFIED Qualifiers: Anemia type: due to chronic kidney disease (5) CAD (coronary artery disease) Code(s): I25.10 - ATHSCL HEART DISEASE OF [place] CORONARY ARTERY W/O ANG PCTRS Qualifiers: Coronary Disease-Associated Artery/Lesion type: [place] artery [place] vs. transplanted heart: [place] heart Associated angina: without angina Qualified Code(s): I25.10 - Atherosclerotic heart disease of [place] coronary artery without angina pectoris (6) End stage renal disease Code(s): N18.6 - END STAGE RENAL DISEASE (7) Hyperlipidemia Code(s): E78.5 - HYPERLIPIDEMIA, UNSPECIFIED Qualifiers: Hyperlipidemia type: pure hypercholesterolemia Qualified Code(s): E78.00 - Pure hypercholesterolemia, unspecified; E78.0 - Pure hypercholesterolemia (8) Ischemic cardiomyopathy Code(s): I25.5 - ISCHEMIC CARDIOMYOPATHY (9) Old inferolateral myocardial infarction Code(s): I25.2 - OLD MYOCARDIAL INFARCTION (10) Paroxysmal atrial fibrillation Code(s): I48.0 - PAROXYSMAL ATRIAL FIBRILLATION Assessment/Plan January 17, 2015 R&LHc @ [facility]: 3 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 CAD 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 and OM2, elevated right and left heart pressures January 19, 2015 Echo: Mod LVH moderate decreased LVEF 40% with AK inferior and inferoseptal, mild AR, MR, mild LAE January 22, 2015 Lexiscan Myoview: Dense scar inferior wall, large lateral ischemia, inferolateral [place], LVEF 30% January 21, 2015 Rest and redistribution Thallium: Scar involving entire inferior wall, basal to mid inferolateral, basal inferoseptal, and apex, no significant hibernating myocardiaum, dilated LV with severely decreased LVEF 27% April 23, 2018 Echo: Moderately dilated with moderate-severe decreased LV fxn, mild decreased RV fxn, mild AR, mild LAE 1. Chest pain syndrome 2. Acute on chronic diastolic/systolic failure and pulmonary edema resolved 3. Hypertensive urgency 4. CAD s/p [place], demand ischemia 5. Ischemic cardiomyopathy (moderate-severe) 6. ESRD on HD MWF POD#5 percutaneous thrombectomy left arm fistula and Venoplasty AV fistula 7. Paroxysmal atrial fibrillation now in sinus rhythm [id number] score of 3 8. Anemia of CKD PLAN: 1. Volume removal with UF/HD via LUE AVF, repeat Hgb 2. Continue Carvedilol 12.5 mg BID, Lisinopril 5 mg QD, Lipitor 80 mg QHS. Consider switching to Entresto after LV function reassessment 3. Agree with Eliquis 2.5 bid and discontinue ASA as post-op hemostasis achieved 4. O2 to maintain saturation 5. Follow up in our office for outpatient follow up. Further cardiac evaluation and intervention to be advised as outpatient including possible need for ICD if LVEF less than 35%
[2019-08-23] MEDS: TAMSULOSIN HCL 0.4 MG CAP PO SCH (12:33)
[2019-08-23] MEDS: CARVEDILOL 12.5 MG TABLET (FP) PO SCH ×2 (12:34→21:15)
[2019-08-23] MEDS: DOCUSATE SODIUM 100 MG CAPSULE (FP) PO SCH ×2 (12:34→21:15)
[2019-08-23] MEDS: APIXABAN 2.5 MG TABLET PO SCH ×2 (12:34→21:15)
--- NOTE | 2019-08-23 14:11 | PN ---
Progress Note (short form) - Note Progress Note: Pt seen. LUE AVF used for full HD session this morning without issue. R groin shiley removed this afternoon (tip intact, pt tolerated well) at approx 130pm, pressure held x 10 mins. No bleeding noted from site. Pressure dressing with 4x4's and tegaderms applied. Pt instructed to keep dressing c/d/i x 48 hours. Primary team and Rn aware of shiley removal. Pt cleared for d/c from Vascular standpoint message sent to Dr Russ regarding above
--- NOTE | 2019-08-23 15:32 | PN ---
Teaching Attending Note Name of Resident: Yolanda Henry ATTENDING PHYSICIAN STATEMENT I saw and evaluated the patient. I reviewed the resident's note and discussed the case with the resident. I agree with the resident's findings and plan as documented. SUBJECTIVE: No ALEXIS , no fever o r chills. L arm pain is better OBJECTIVE: NAD Cv: irreg irreg . loud S2 Lungs: clear anteriorly Abd: soft, NT, ND , N BS Ext : No edema on legs . LUE edema, and tenderness are better again today . RP 2+ ASSESSMENT AND PLAN: Patient is a 63 year old male with a past medical history of coronary artery disease, P A fib , s/p NE, Mod-severe CMP, EF 27 %, , ESRD (on dialysis MWF), HTN, who was admitted for thrombosed LUE fistula . 1- LUE fistula thrombosis s/p thrombectomy 2- Acute on chronic systolic heart failure 3- elevated trop 4- h/o CAD 5- HTN 6- DM 7- h/o P Afib plan : - HD done through L AVF today. - sudhir dc'd -eliquis in place of asa - cont liosinpril and coreg. will not resume Norvasc after dc. tis was d/w Dr. Mujica - out pt f/u for EF eval and then consideration of entresto - tramadol after dc for pain - a1C 5.4 DC HOME . pre post pending
--- NOTE | 2019-08-23 17:28 | DS ---
Addendum entered and electronically signed by Yolanda Henry, 11:26: Hospital course: per cardio; Patient is to F/U in our office post D/C for further cardiac care (patient will require prophylactic ICD implant- preferably subcutaneous ICD/[employer] considering his low LVEF), discussed in detail with the patient Original Note: Physical Exam: SUBJECTIVE: Patient seen and examined. Pt L arm swelling improved and AVF was used today for dialysis with lidocaine. OBJECTIVE: Vital Signs Period Temp Pulse Resp BP Sys/Wyatt Pulse Ox Last 24 Hr 98.1 F-99.1 F 58-79 16-20 113-137/53-66 90-95 PHYSICAL EXAM GENERAL: The patient is awake, alert, and fully oriented, in no distress. HEAD: Normal with no signs of trauma. EYES: PERRL, extraocular movements intact, sclera anicteric, conjunctiva clear. No ptosis. ENT: oropharynx clear without exudates, moist mucous membranes. LUNGS: Breath sounds equal, clear to auscultation bilaterally, no wheezes, no crackles, no accessory muscle use. HEART: Regular rate and rhythm, S1, S2 without murmur, rub or gallop. ABDOMEN: Soft, nontender, nondistended, normoactive bowel sounds, no guarding, no rebound, no hepatosplenomegaly, no masses. EXTREMITIES: 2+ pulses, warm, well-perfused, edema and decreased tenderness on L arm thrombectomy site. LABS Laboratory Results - last 24 hr 08/23/19 05:55 Sodium 137 Potassium 4.2 Chloride 99 Carbon Dioxide 28 Anion Gap 10 BUN 68.5 H Creatinine 9.9 H* Est GFR (CKD-EPI)AfAm 5.74 Est GFR (CKD-EPI)NonAf 4.95 Random Glucose 85 Calcium 7.9 L Phosphorus 5.8 H Magnesium 2.0 HOSPITAL COURSE: Date of Admission:08/16/19 63 year old male with a past medical history of coronary artery disease, multiple MIs in the past (denies catheterizations), end stage renal disease (on dialysis MWF), hypertension is admitted for clotted L sided AVF. s/p thrombectomy day 6. Pt continued to have pain. ice pack helped along with pain meds. Shiley was placed as temporary site in right groin until L AVF site ready for use. As per Vascular rec, pt could only be discharged once L arm AVF was able to be used for dialysis. Today was the day and pt tolerated dialysis well. 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 After o/p LVF assessment, consideration for switch to Entresto. Pt discharged on oxygen as pre and post was 87% Date of Discharge: 08/23/19 Minutes to complete discharge: 35 <Yolanda Henry - Last Filed: 08/23/19 17:37> Discharge Summary Problems reviewed: Yes Reason For Visit: CHEST PAIN Current Active Problems Paroxysmal atrial fibrillation (Chronic) - Home Medications Comprehensive Discharge Medication List: Ambulatory Orders Donepezil HCl [Aricept -] 10 mg PO DAILY 04/22/18 Tamsulosin HCl [Flomax -] 0.4 mg PO DAILY 04/22/18 Carvedilol [Coreg -] 12.5 mg PO BID 07/17/18 Atorvastatin Ca [Lipitor] 80 mg PO HS 09/25/18 Calcium Acetate [Phoslo -] 667 mg PO TIDCM 09/25/18 Acetaminophen W/ Codeine #3 [Tylenol # 3 -] 1 tab PO Q6H PRN #20 tablet MDD 4 Lisinopril 10 mg PO HS 08/19/19 Acetaminophen [Tylenol .Regular Strength -] 650 mg PO TID #30 tablet 08/23/19 Apixaban [Eliquis] 2.5 mg PO BID #60 tablet 08/23/19 Docusate Sodium [Colace -] 200 mg PO BID #30 capsule 08/23/19 Sennosides [Senna -] 2 tab PO HS #30 tablet 08/23/19 Tramadol HCl 50 mg PO Q8H PRN #15 tablet MDD 3 tab 08/23/19 <Yolanda Henry - Last Filed: 08/23/19 17:37> - Home Medications Comprehensive Discharge Medication List: please note that tramadol was discontinued. <Franics Goodman - Last Filed: 08/24/19 14:47> Condition: Improved - Instructions Diet, Activity, Other Instructions: You were admitted to the hospital for a clotted AV fistula in your left arm. You underwent a procedure to help de-clot your fistula for future use. We had placed a temporary catheter in your groin; now that your fistula is active again the temporary one will be removed prior to discharge. Your symptoms have improved and you are now stable to be discharged. Medications: We have made some changes to your home medications; do not take your Norvasc ( amlodipine ) any more Please DO NOT RESUME the aspirin 81mg; we have replaced it with Eliquis 2.5 mg to be taken by mouth Twice a day You may resume all other medications from your home list. We are sending you home with oxygen; please use oxygen on 2L at home when ambulating Follow up: Please follow up with your Primary care physician within one week for reevaluation of your blood count since you are on blood thinner Please follow up with Nephrology Dr Oleary within one week. Please follow up with your Clinical Laboratory Technologist, Dr. Mujica within one week. You might need further evaluation and new meds might need to be started . You will need defibrillator insertion follow up with Dr. Russ, vascular after dc in 1 week Please check yourself everyday for bleeding as you are being started on a blood thinner. Please check your gums, urine and stool for blood. Please check your stool for black stool as this can also represent bleeding. If you begin to experience worsening pain, tenderness, redness, warmth from the fistula site, fevers, abdominal pain, chest pain please return to the Emergency Room immediately. Referrals: Clemencia Oleary MD [Staff Physician] - 1 Week Kane Mujica MD [Staff Physician] - 1 Week Suraj Russ MD [Staff Physician] - Jules Arango MD [Staff Physician] - 1 Week Disposition: HOME Problem List - Problems (1) AV fistula occlusion Code(s): T82.898A - OTH COMPLICATION OF VASCULAR PROSTH DEV/GRFT, INIT Qualifiers: Encounter type: initial encounter Qualified Code(s): T82.898A - Other specified complication of vascular prosthetic devices, implants and grafts, initial encounter (2) Chest pain Code(s): R07.9 - CHEST PAIN, UNSPECIFIED Qualifiers: Chest pain type: unspecified Qualified Code(s): R07.9 - Chest pain, unspecified (3) Pre-operative cardiovascular examination, left ventricular ejection fraction < 35% Code(s): Z01.810 - ENCOUNTER FOR PREPROCEDURAL CARDIOVASCULAR EXAMINATION; I51.89 - OTHER ILL-DEFINED HEART DISEASES (4) Anemia Code(s): D64.9 - ANEMIA, UNSPECIFIED Qualifiers: Anemia type: due to chronic kidney disease (5) CAD (coronary artery disease) Code(s): I25.10 - ATHSCL HEART DISEASE OF [place] CORONARY ARTERY W/O ANG PCTRS Qualifiers: Coronary Disease-Associated Artery/Lesion type: [place] artery [employer] vs. transplanted heart: [place] heart Associated angina: without angina Qualified Code(s): I25.10 - Atherosclerotic heart disease of [place] coronary artery without angina pectoris (6) End stage renal disease Code(s): N18.6 - END STAGE RENAL DISEASE (7) Hyperlipidemia Code(s): E78.5 - HYPERLIPIDEMIA, UNSPECIFIED Qualifiers: Hyperlipidemia type: pure hypercholesterolemia Qualified Code(s): E78.00 - Pure hypercholesterolemia, unspecified; E78.0 - Pure hypercholesterolemia (8) Normocytic normochromic anemia Code(s): D64.9 - ANEMIA, UNSPECIFIED (9) Renal failure Code(s): N19 - UNSPECIFIED KIDNEY FAILURE Qualifiers: Renal failure chronicity: acute on chronic (10) Respiratory failure Code(s): J96.90 - RESPIRATORY FAILURE, UNSP, UNSP W HYPOXIA OR HYPERCAPNIA Qualifiers: Chronicity: acute Respiratory failure complication: unspecified whether with hypoxia or hypercapnia Qualified Code(s): J96.00 - Acute respiratory failure, unspecified whether with hypoxia or hypercapnia <Yolanda Henry - Last Filed: 08/23/19 17:37> This patient is new to me today: No Emergency Visit: Yes ED Registration Date: 08/16/19 Care time: The patient presented to the Emergency Department on the above date and was hospitalized for further evaluation of their emergent condition. Critical Care patient: No - Discharge Referral Referred to [facility] Med [facility] No <Yolanda Henry - Last Filed: 08/23/19 17:37> ATTENDING PHYSICIAN STATEMENT I saw and evaluated the patient. I reviewed the resident's note and discussed the case with the resident. I agree with the resident's findings and plan as documented. SUBJECTIVE: OBJECTIVE: ASSESSMENT AND PLAN: <Yolanda Henry - Last Filed: 08/23/19 17:37> ATTENDING PHYSICIAN STATEMENT I saw and evaluated the patient. I reviewed the resident's note and discussed the case with the resident. I agree with the resident's findings and plan as documented. SUBJECTIVE: OBJECTIVE: ASSESSMENT AND PLAN: <Francis Goodman - Last Filed: 08/24/19 14:47>
[2019-08-23] MEDS: BISACODYL 10 MG SUPP.RECT PR SCH (17:32)
[2019-08-23] MEDS: LISINOPRIL 5 MG TABLET (FP) PO SCH (21:15)
[2019-08-23] MEDS: SENNOSIDES 8.6MG TABLET (FP) PO SCH (21:15)
[2019-08-23] MEDS: ATORVASTATIN CA 80 MG TABLET (FP) PO SCH (21:15)
[2019-08-23] MEDS: DONEPEZIL HCL 10 MG TABLET (FP) PO SCH (21:15)
[2019-08-24] MEDS: ACETAMINOPHEN 325 MG TABLET (FP) PO SCH ×2 (05:37→13:55)
--- NOTE | 2019-08-24 07:15 | PN ---
Progress Note (short form) - Note Progress Note: Chief Complaint: Events noted, notes reviewed, denies any chest pain or dyspnea History of Present Illness: Seen and examined on telemetry. Events noted, notes reviewed, denies any chest pain or dyspnea Plan to D/C home today and F/U in the office - Current Medication List Current Medications: Active Medications Current Medications Acetaminophen (Tylenol -) 650 mg PO TID [facility] Last Admin: 08/24/19 05:37 Dose: 650 mg Apixaban (Eliquis -) 2.5 mg PO BID [facility] Last Admin: 08/23/19 21:15 Dose: 2.5 mg Atorvastatin Calcium (Lipitor -) 80 mg PO [facility] Last Admin: 08/23/19 21:15 Dose: 80 mg Bisacodyl (Dulcolax Suppository -) 10 mg SD DAILY [facility] Last Admin: 08/23/19 17:32 Dose: Not Given Carvedilol (Coreg -) 12.5 mg PO BID [facility] Last Admin: 08/23/19 21:15 Dose: 12.5 mg Docusate Sodium (Colace -) 200 mg PO BID [facility] Last Admin: 08/23/19 21:15 Dose: 200 mg Donepezil HCl (Aricept -) 10 mg PO [facility] Last Admin: 08/23/19 21:15 Dose: 10 mg Lisinopril (Prinivil) 5 mg PO [facility] Last Admin: 08/23/19 21:15 Dose: 5 mg Oxycodone HCl (Roxicodone -) 5 mg PO Q4H PRN PRN Reason: PAIN LEVEL 1-5 Last Admin: 08/22/19 05:57 Dose: 5 mg Senna (Senna -) 2 tab PO [facility] Last Admin: 08/23/19 21:15 Dose: 2 tab Tamsulosin HCl (Flomax -) 0.4 mg PO DAILY@0830 [facility] Last Admin: 08/23/19 12:33 Dose: 0.4 mg - Review of Systems Constitutional: denies: Chills, Fever Cardiovascular: As noted above Respiratory: denies: Cough or Hemoptysis Gastrointestinal: denies: Abdominal Pain, Constipation, Diarrhea, Melena, Nausea , Rectal Bleeding, Vomiting Musculoskeletal: denies: Back Pain Neurological: denies: Unsteady Gait, Weakness. denies: Dizziness, Headache, Seizure, Syncope - Objective Vital Signs: Last Vital Signs Temp Pulse Resp BP Pulse Ox 99.6 F 73 18 145/63 93 L 08/24/19 05:00 08/24/19 05:00 08/24/19 05:00 08/24/19 05:00 08/23/19 20:50 Intake & Output 08/21/19 08/22/19 08/23/19 08/24/19 23:59 23:59 23:59 23:59 Intake Total 2030 760 1700 120 Output Total 2500 2000 Balance -470 760 -300 120 Weight 136 lb 8 oz 137 lb 2 oz HEENT: Atraumatic Neck: Supple Negative JVD Cardiovascular: S1 S2 Regular Rate and Rhythm Respiratory: Diminished Breath Sounds at the Bases Gastrointestinal: Soft Benign Normal Bowel Sounds Ext: No Edema Labs: CBC, BMP 08/22/19 06:30 08/23/19 05:55 Hepatic Panel Total Bilirubin 0.4 mg/dL (0.2-1) 08/18/19 05:40 AST 22 U/L (15-37) 08/18/19 05:40 ALT 25 U/L (13-61) 08/18/19 05:40 Alkaline Phosphatase 108 U/L (45-117) 08/18/19 05:40 Albumin 2.0 g/dl (3.4-5.0) L 08/18/19 05:40 Assessment/Plan 1. Chest pain syndrome referable to acute on chronic class I-II NYHA classification systolic/diastolic LV failure, precipitated by hypertensive urgency, resolved 2. Hypertensive urgency, hypertensive cardiovascular disease 3. CAD post RI angina pectoris with evidence of demand ischemic injury 4. Ischemic dilated cardiomyopathy 5. Paroxysmal atrial fibrillation currently in sinus rhythm [id number] score of 3 6. ESRD on HD 7. Anemia 8. Altered mental status, resolved PLAN: 1. HD as per renal service 2. Continue Carvedilol 3. Continue Prinivil and as outlined may consider Entresto, as outpatient 4. Continue Lipitor 5. Continue Eliquis with close monitoring of CBC 6. Patient is to F/U in our office post D/C for further cardiac care (patient will require prophylactic ICD implant- preferably subcutaneous ICD/[employer] considering his low LVEF), discussed in detail with the patient Víctor Adams MD
[2019-08-24] MEDS: TAMSULOSIN HCL 0.4 MG CAP PO SCH (08:26)
[2019-08-24] MEDS: APIXABAN 2.5 MG TABLET PO SCH (09:01)
[2019-08-24] MEDS: CARVEDILOL 12.5 MG TABLET (FP) PO SCH (09:07)
[2019-08-24] MEDS: DOCUSATE SODIUM 100 MG CAPSULE (FP) PO SCH (09:07)
[2019-08-24] MEDS: BISACODYL 10 MG SUPP.RECT PR SCH (09:08)
[2019-08-24 10:44] LABS: BASO % 0.5 % (0-2.0); EOS % 2.1 % (0-4.5); HEMOGLOBIN 8.2 GM/dL (11.7-16.9); LYMPH % 8.2 % (8-40); MCH 31.4 pg (25.7-33.7); MEAN CELL VOLUME 92.3 fl (80-96); MEAN PLT VOLUME 9.1 fl (7.5-11.1); NEUT % 82.2 % (42.8-82.8); PLATELET COUNT 262 K/MM3 (134-434); RDW 15.3 % (11.9-15.9); WHITE BLOOD COUNT 8.1 K/mm3 (4.0-10.0)
[2019-08-24 12:56] LABS: EPI CELLS 1.9 /HPF (0-5/HPF); HYALINE CASTS 1 /lpf (0-8); PH,URINE 7.5 (5.0-8.0); URINE APPEARANCE CLEAR; URINE BACTERIA 19.4 /hpf (NEGATIVE); URINE BILIRUBIN NEGATIVE (NEGATIVE); URINE COLOR YELLOW; URINE GLUCOSE (UA) NEGATIVE (NEGATIVE); URINE KETONE NEGATIVE (NEGATIVE); URINE LEUK ESTERASE NEGATIVE (NEGATIVE); URINE NITRITE NEGATIVE (NEGATIVE); URINE PROTEIN 3+ (NEGATIVE); URINE RBC 2 /hpf (0-4); URINE UROBILINOGEN 0.2 mg/dL (0.2-1.0); URINE WBC 4 /hpf (0-5)
--- NOTE | 2019-08-24 14:31 | PN ---
Teaching Attending Note Name of Resident: Yolanda Henry ATTENDING PHYSICIAN STATEMENT I saw and evaluated the patient. I reviewed the resident's note and discussed the case with the resident. I agree with the resident's findings and plan as documented. SUBJECTIVE:had a low grade fever last night . no cough , no SOB , no dysuria, no ALEXIS . no diarrhea or abd pain OBJECTIVE: NAD Cv: irreg irreg . Lungs: clear anteriorly Abd: soft, NT, ND , N BS Ext : No edema on legs . LUE fistula site with no erythema, much decreased edema and minimal tenderness ASSESSMENT AND PLAN: Patient is a 63 year old male with a past medical history of coronary artery disease, P A fib , s/p [place], Mod-severe CMP, EF 27 %, , ESRD (on dialysis MWF), HTN, who was admitted for thrombosed LUE fistula . 1- LUE fistula thrombosis s/p thrombectomy 2- Acute on chronic systolic heart failure 3- elevated trop 4- h/o CAD 5- HTN 6- DM 7- h/o P Afib 8- low grade fever plan : - low grade fever did not recur. no signs of infection . UA and cxray obtained and reviewed , no signs of infiltrate or UTI. - cont Hd per his routine MWF -eliquis in place of asa - cont liosinpril and coreg. will not resume Norvasc after dc. - out pt f/u for EF eval and then consideration of entresto and AICD - I called pharmcy and canceled tramadol prescription - a1C 5.4 . Needs O2 at home , 2 L with ambulation . 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
[2019-08-24 14:32] VITALS: BP 124/52; PULSE 70; TEMP 98.6
== END 2019-08-24 17:25 | disposition home or self-care (01) | DRG 252 ==
LOC: JER 14:55 → JERBED 18:36 → J4S 20:59
PROVIDERS: ADMIT Internal Medicine; ATTEND Internal Medicine
PROC: 05HM33Z Insertion of Infusion Device into Right Internal Jugular Vein, Percutaneous Approach (ICD-10-PCS; 2019-08-16)
PROC: 05C83ZZ Extirpation of Matter from Left Axillary Vein, Percutaneous Approach (ICD-10-PCS; principal; 2019-08-19)
PROC: 5A1D70Z Performance of Urinary Filtration, Intermittent, Less than 6 Hours Per Day (ICD-10-PCS; 2019-08-23)
DX: T82.868A Thrombosis due to vascular prosthetic devices, implants and grafts, initial encounter (principal); N18.6 End stage renal disease; I50.43 Acute on chronic combined systolic (congestive) and diastolic (congestive) heart failure; I13.2 Hypertensive heart and chronic kidney disease with heart failure and with stage 5 chronic kidney disease, or end stage renal disease; I24.8 Other forms of acute ischemic heart disease; I47.2 Ventricular tachycardia; I42.0 Dilated cardiomyopathy; I25.10 Atherosclerotic heart disease of native coronary artery without angina pectoris; I16.0 Hypertensive urgency; Y83.9 Surgical procedure, unspecified as the cause of abnormal reaction of the patient, or of later complication, without mention of misadventure at the time of the procedure; E11.9 Type 2 diabetes mellitus without complications; R07.89 Other chest pain; I25.5 Ischemic cardiomyopathy; R41.82 Altered mental status, unspecified; I25.119 Atherosclerotic heart disease of native coronary artery with unspecified angina pectoris; I48.0 Paroxysmal atrial fibrillation; E78.5 Hyperlipidemia, unspecified; D63.1 Anemia in chronic kidney disease; Z99.2 Dependence on renal dialysis
CPT/HCPCS: 36415; 71045-TC-FY; 71046-TC-FY; 74018-TC-FY; 76000-TC-FY; 80048; 80053; 81003; 82550; 82553; 82962; 83036; 83735; 84100; 84484; 85025; 85027; 85610; 86803; 86850; 86900; 86901; 87081; 87340; 93005; 93010; 94760; 94761; 97116-GP; 97161-GP; 99284-25; J0885; J1644

== ENCOUNTER 2019-10-04 15:15 | Emergency (ER) | payer OTHER ==
[2019-10-04] MEDS ORDERED: ACETAMINOPHEN 325 MG TABLET (FP) PO ONE (16:16)
[2019-10-04 16:23] VITALS: BMI 21.6
[2019-10-04] MEDS ORDERED: ACETAMINOPHEN 325 MG TABLET (FP) ONE ×2 (16:47→22:18)
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
[2019-10-04 19:44] VITALS: BP 168/75; PULSE 77; TEMP 97.7
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
[2019-10-04 20:10] LABS: BASO % 0.7 % (0-2.0); EOS % 1.4 % (0-4.5); HEMATOCRIT 31.3 % (35.4-49); HEMOGLOBIN 10.3 GM/dL (11.7-16.9); LYMPH % 14.6 % (8-40); MCH 31.3 pg (25.7-33.7); MCHC 32.8 g/dl (32.0-35.9); MEAN CELL VOLUME 95.4 fl (80-96); MEAN PLT VOLUME 8.2 fl (7.5-11.1); MONO % 5.8 % (3.8-10.2); NEUT % 77.5 % (42.8-82.8); PLATELET COUNT 180 K/MM3 (134-434); RBC 3.29 M/mm3 (4.00-5.60); RDW 16.6 % (11.9-15.9); WHITE BLOOD COUNT 5.3 K/mm3 (4.0-10.0)
[2019-10-04 20:17] LABS: INR 1.21 (0.83-1.09); PROTHROMBIN TIME (PATIENT) 14.3 SEC (9.7-13.0)
[2019-10-04 20:34] LABS: ALBUMIN 2.9 g/dl (3.4-5.0); BILIRUBIN,TOTAL 0.5 mg/dL (0.2-1); BLOOD UREA NITROGEN 36.2 mg/dL (7-18); CREATININE 5.6 mg/dL (0.55-1.3); POTASSIUM 4.2 mmol/L (3.5-5.1); TOT PROT 6.2 g/dl (6.4-8.2)
--- NOTE | 2019-10-07 11:38 | EKG ---
Test Reason : Blood Pressure : / mmHG Vent. Rate : 084 BPM Atrial Rate : 084 BPM P-R Int : 168 ms QRS Dur : 114 ms QT Int : 436 ms P-R-T Axes : 069 -18 132 degrees QTc Int : 515 ms SINUS RHYTHM WITH OCCASIONAL PREMATURE VENTRICULAR COMPLEXES AND PREMATURE ATRIAL COMPLEXES POSSIBLE LEFT ATRIAL ENLARGEMENT INFERIOR INFARCT (CITED ON OR BEFORE 22-APR-2018) PROLONGED QT ABNORMAL ECG WHEN COMPARED WITH ECG OF 17-AUG-2019 10:35, PREMATURE ATRIAL COMPLEXES ARE NOW PRESENT Confirmed by ADILSON PRECIADO MD ([id number]) on 10/07/2019 11:37:46 AM Referred By: Confirmed By:ADILSON PRECIADO MD
== END 2019-10-04 22:31 | disposition home or self-care (01) ==
LOC: JER 15:15
DX: S09.8XXA Other specified injuries of head, initial encounter (principal); M54.2 Cervicalgia; M25.511 Pain in right shoulder; M25.512 Pain in left shoulder; V43.62XA Car passenger injured in collision with other type car in traffic accident, initial encounter; W22.19XA Striking against or struck by other automobile airbag, initial encounter; Y92.414 Local residential or business street as the place of occurrence of the external cause; Y93.89 Activity, other specified; Y99.8 Other external cause status; I13.11 Hypertensive heart and chronic kidney disease without heart failure, with stage 5 chronic kidney disease, or end stage renal disease; N18.6 End stage renal disease; N17.8 Other acute kidney failure; Z99.2 Dependence on renal dialysis; I25.2 Old myocardial infarction; E78.00 Pure hypercholesterolemia, unspecified; F03.90 Unspecified dementia, unspecified severity, without behavioral disturbance, psychotic disturbance, mood disturbance, and anxiety; Z86.718 Personal history of other venous thrombosis and embolism; Z79.01 Long term (current) use of anticoagulants
CPT/HCPCS: 36415; 70450-TC; 71046-TC-FY; 71111-TC-FY; 71250-TC; 72125-TC; 73030-TC-RT-FY; 73060-TC-RT-FY; 74176-TC; 80053; 85025; 85610; 93005; 93010; 99284-25

== ENCOUNTER 2019-12-20 14:38 | Emergency (ER) | payer OTHER ==
[2019-12-20 14:52] VITALS: BMI 21.1
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
[2019-12-20] MEDS ORDERED: BACITRACIN 0.9 GM PACKET ONE (16:46)
--- NOTE | 2019-12-20 17:18 | PDOC ---
Attending Attestation - Resident Resident Name: Yolanda Henry - ED Attending Attestation I have performed the following: I have examined & evaluated the patient, The case was reviewed & discussed with the resident, I agree w/resident's findings & plan, Exceptions are as noted - HPI HPI: 12/20/19 17:17 64-year-old male presents with right yang abrasion - Physicial Exam PE: 12/20/19 17:42 there is a superficial rt yang abrasion - Medical Decision Making 12/20/19 17:17 There is no superficial abrasions right yang and no evidence of cellulitis or induration The right leg has no deformities There is no streaking 12/20/19 17:18 There is no laceration to the area Impression right yang abrasion Treatment bacitracin
[2019-12-20 18:03] VITALS: BP 168/78; PULSE 75; TEMP 98
== END 2019-12-20 17:59 | disposition home or self-care (01) ==
LOC: JER 14:38
DX: S81.802A Unspecified open wound, left lower leg, initial encounter (principal); X58.XXXA Exposure to other specified factors, initial encounter; Y93.89 Activity, other specified; Y92.89 Other specified places as the place of occurrence of the external cause; Y99.8 Other external cause status; I25.10 Atherosclerotic heart disease of native coronary artery without angina pectoris; I13.11 Hypertensive heart and chronic kidney disease without heart failure, with stage 5 chronic kidney disease, or end stage renal disease; N18.6 End stage renal disease; Z99.2 Dependence on renal dialysis; I25.2 Old myocardial infarction; F03.90 Unspecified dementia, unspecified severity, without behavioral disturbance, psychotic disturbance, mood disturbance, and anxiety; D64.9 Anemia, unspecified; Z79.01 Long term (current) use of anticoagulants
CPT/HCPCS: 99282-25

== ENCOUNTER 2020-11-13 15:05 | Emergency (ER) | payer BC, OTHER ==
[2020-11-13 16:42] VITALS: TEMP 97.7; BMI 28.4
[2020-11-13 17:58] LABS: BASO % 0.8 % (0-2.0); EOS % 0.7 % (0-4.5); HEMATOCRIT 28.7 % (35.4-49); HEMOGLOBIN 9.5 GM/dL (11.7-16.9); LYMPH % 8.2 % (8-40); MCH 34.4 pg (25.7-33.7); MCHC 33.1 g/dl (32.0-35.9); MEAN CELL VOLUME 104.1 fl (80-96); MEAN PLT VOLUME 9.2 fl (7.5-11.1); MONO % 10.4 % (3.8-10.2); NEUT % 79.9 % (42.8-82.8); PLATELET COUNT 155 K/MM3 (134-434); RBC 2.76 M/mm3 (4.00-5.60); RDW 15.1 % (11.9-15.9); WHITE BLOOD COUNT 6.9 K/mm3 (4.0-10.0)
[2020-11-13 18:17] LABS: ALBUMIN 3.2 g/dl (3.4-5.0); CALCIUM 9.4 mg/dL (8.5-10.1)
[2020-11-13 18:18] LABS: BLOOD UREA NITROGEN 46.2 mg/dL (7-18)
[2020-11-13 18:22] LABS: BILIRUBIN,TOTAL 0.5 mg/dL (0.2-1); TOT PROT 7.5 g/dl (6.4-8.2)
[2020-11-13 18:29] LABS: CREATININE 7.4 mg/dL (0.55-1.3)
[2020-11-13 18:54] VITALS: BP 134/89; PULSE 89
[2020-11-13 18:59] LABS: VENOUS BASE EXCESS -4.2 mmol/L (-2-2); VENOUS O2 SATURATION 46.9 % (70-80); VENOUS PCO2 50.9 mmHg (38-52); VENOUS PH 7.272 (7.310-7.410)
== END 2020-11-13 20:41 | disposition home or self-care (01) ==
LOC: JER 15:05
DX: J70.5 Respiratory conditions due to smoke inhalation (principal); N18.6 End stage renal disease; Z91.15 Patient's noncompliance with renal dialysis
CPT/HCPCS: 36415; 80053; 82375; 82803; 85025; 93005; 93010; 99284-25

== ENCOUNTER 2021-02-06 14:44 | Emergency (ER) | payer BC, OTHER ==
[2021-02-06 14:58] VITALS: BMI 21.2
[2021-02-06] MEDS ORDERED: VANCOMYCIN HCL 1,500 MG in DEXTROSE 5%-WATER - 500 ML IVPB ONE (15:25)
[2021-02-06] MEDS ORDERED: PIPERACILLIN/TAZOB 2.25 GM 2.25 GM in DEXTROSE 5%-WATER - 50 ML IVPB ONE (15:28)
[2021-02-06 16:23] LABS: BASO % 0.3 % (0-2.0); EOS % 0.3 % (0-4.5); HEMATOCRIT 28.8 % (35.4-49); HEMOGLOBIN 9.5 GM/dL (11.7-16.9); LYMPH % 3.3 % (8-40); MCH 34.5 pg (25.7-33.7); MCHC 32.9 g/dl (32.0-35.9); MEAN CELL VOLUME 104.9 fl (80-96); MEAN PLT VOLUME 10.6 fl (7.5-11.1); MONO % 3.8 % (3.8-10.2); NEUT % 92.3 % (42.8-82.8); PLATELET COUNT 187 K/MM3 (134-434); RBC 2.74 M/mm3 (4.00-5.60); RDW 21.6 % (11.9-15.9); WHITE BLOOD COUNT 10.2 K/mm3 (4.0-10.0)
[2021-02-06 16:36] LABS: INR 1.56 (0.83-1.09); PROTHROMBIN TIME (PATIENT) 18.6 SEC (9.7-13.0)
[2021-02-06 16:39] LABS: ACTIVATED PTT 42.4 SECONDS (25.2-36.5)
[2021-02-06 16:42] LABS: CHLORIDE 96 mmol/L (98-107); SODIUM 130 mmol/L (136-145)
[2021-02-06 16:43] LABS: CALCIUM 9.2 mg/dL (8.5-10.1)
[2021-02-06 16:44] LABS: ALBUMIN 2.4 g/dl (3.4-5.0); BLOOD UREA NITROGEN 30.7 mg/dL (7-18); CO2 25 mmol/L (21-32); GLUCOSE,RANDOM 79 mg/dL (74-106)
[2021-02-06 16:47] LABS: CREATININE 4.8 mg/dL (0.55-1.3); SGOT/AST 110 U/L (15-37)
[2021-02-06 16:49] LABS: BILIRUBIN,TOTAL 0.5 mg/dL (0.2-1); TOT PROT 7.4 g/dl (6.4-8.2)
[2021-02-06 16:50] LABS: ALK PHOS 258 U/L (45-117)
[2021-02-06 16:51] LABS: ANION GAP 10 MMOL/L (8-16); POTASSIUM 8.2 mmol/L (3.5-5.1); SGPT/ALT 57 U/L (13-61)
[2021-02-06 17:20] LABS: ANISOCYTOSIS 2+; MACROCYTOSIS 2+; OVALOCYTE 1+; PLATELET ESTIMATE NORMAL; TARGET CELLS 1+
[2021-02-06 17:22] LABS: POTASSIUM 3.5 mmol/L (3.5-5.1)
[2021-02-06 17:25] LABS: CALCIUM 9.1 mg/dL (8.5-10.1)
[2021-02-06 17:26] LABS: BLOOD UREA NITROGEN 30.3 mg/dL (7-18)
[2021-02-06 17:29] LABS: CREATININE 4.7 mg/dL (0.55-1.3)
[2021-02-06] MEDS ORDERED: DIPHTH,PERTUSS(ACELL),TET 0.5 ML DISP.SYRIN IM ONE ×2 (17:33→18:03)
[2021-02-06] MEDS ORDERED: DALBAVANCIN HCL 1,500 MG in DEXTROSE 5%-WATER - 500 ML IVPB ONE (17:35)
[2021-02-06] MEDS ORDERED: DALBAVANCIN HCL 500 MG VIAL (RESTRICTED TO ID ONLY) IVPB ONE (18:03)
[2021-02-06] MEDS ORDERED: LIDOCAINE 1%/EPI 1:100000 (20 ML MULTI DOSE VIAL) IJ ONE (18:35)
[2021-02-06 19:24] VITALS: TEMP 98.6
[2021-02-06 23:20] VITALS: BP 141/76; PULSE 71
== END 2021-02-06 23:15 | disposition home or self-care (01) ==
LOC: JER 14:44
PROC: 3E03329 Introduction of Other Anti-infective into Peripheral Vein, Percutaneous Approach (ICD-10-PCS; principal; 2021-02-06)
PROC: 3E0234Z Introduction of Serum, Toxoid and Vaccine into Muscle, Percutaneous Approach (ICD-10-PCS; 2021-02-06)
PROC: 3E03329 Introduction of Other Anti-infective into Peripheral Vein, Percutaneous Approach (ICD-10-PCS; 2021-02-06)
PROC: 0HQ0XZZ Repair Scalp Skin, External Approach (ICD-10-PCS; 2021-02-06)
DX: S01.81XA Laceration without foreign body of other part of head, initial encounter (principal); S01.111A Laceration without foreign body of right eyelid and periocular area, initial encounter; L97.929 Non-pressure chronic ulcer of unspecified part of left lower leg with unspecified severity; R22.2 Localized swelling, mass and lump, trunk
CPT/HCPCS: 36415; 70450-TC; 71045-TC-FY; 72125-TC; 73590-TC-LT-FY; 80048; 80053; 85025; 85610; 85730; 87040; 90715; 93005; 93010; 99285-25; J0875

== ENCOUNTER 2021-04-07 13:48 | Inpatient (IN) | payer BC, OTHER ==
[2021-04-07 15:17] LABS: BASO % 0.2 % (0-2.0); EOS % 0.1 % (0-4.5); HEMATOCRIT 31.1 % (35.4-49); HEMOGLOBIN 10.1 GM/dL (11.7-16.9); LYMPH % 4.8 % (8-40); MCH 35.8 pg (25.7-33.7); MCHC 32.4 g/dl (32.0-35.9); MEAN CELL VOLUME 110.6 fl (80-96); MEAN PLT VOLUME 10.7 fl (7.5-11.1); MONO % 3.1 % (3.8-10.2); NEUT % 91.8 % (42.8-82.8); PLATELET COUNT 180 K/MM3 (134-434); RBC 2.82 M/mm3 (4.00-5.60); RDW 19.3 % (11.9-15.9); WHITE BLOOD COUNT 13.4 K/mm3 (4.0-10.0)
[2021-04-07 15:25] LABS: INR 1.67 (0.83-1.09); PROTHROMBIN TIME (PATIENT) 19.9 SEC (9.7-13.0)
[2021-04-07 15:28] LABS: ACTIVATED PTT 42.3 SECONDS (25.2-36.5)
[2021-04-07 15:37] LABS: CHLORIDE 96 mmol/L (98-107); SODIUM 132 mmol/L (136-145)
[2021-04-07 15:39] LABS: ALBUMIN 2.1 g/dl (3.4-5.0); ANION GAP 20 MMOL/L (8-16); BLOOD UREA NITROGEN 58.3 mg/dL (7-18); CALCIUM 9.4 mg/dL (8.5-10.1); CO2 17 mmol/L (21-32)
[2021-04-07 15:42] LABS: SGOT/AST 51 U/L (15-37); SGPT/ALT 28 U/L (13-61)
[2021-04-07 15:44] LABS: TOT PROT 6.9 g/dl (6.4-8.2)
[2021-04-07 15:45] LABS: ALK PHOS 240 U/L (45-117); LACTIC ACID 2.2 mmol/L (0.4-2.0)
[2021-04-07 15:48] LABS: CREATININE 7.8 mg/dL (0.55-1.3); GLUCOSE,RANDOM 48 mg/dL (74-106)
[2021-04-07] MEDS ORDERED: DEXTROSE 50%-WATER - 25 GM/50 ML VIAL IVPUSH ONE (15:54)
[2021-04-07] MEDS ORDERED: DEXTROSE 50%-WATER 25 GM/50 ML DISP.SYRIN ONE (15:55)
[2021-04-07 15:56] LABS: ANISOCYTOSIS 3+; MACROCYTOSIS 3+; PLATELET ESTIMATE NORMAL
[2021-04-07] MEDS ORDERED: PIPERACILLIN/TAZOB 2.25 GM 2.25 GM in DEXTROSE 5%-WATER - 50 ML IVPB ONE (16:17)
[2021-04-07] MEDS ORDERED: PIPERACILLIN/TAZOB 2.25 GM 2.25 GM/50 ML BAG IVPB ONE (16:26)
[2021-04-07] MEDS ORDERED: SODIUM CHLORIDE 250 ML IV PRN (19:14)
[2021-04-07] MEDS ORDERED: EPOETIN ALFA-EPBX 4,000 UNIT/ML VIAL IVPUSH ONE (19:15)
[2021-04-07] MEDS ORDERED: CARVEDILOL 12.5 MG TABLET (FP) PO SCH (22:00)
[2021-04-07] MEDS: CARVEDILOL 25 MG TABLET (FP) PO SCH (23:18)
[2021-04-07] MEDS: POLYETHYLENE GLYCOL 3350 119 GM BTL PO SCH (23:18)
[2021-04-07] MEDS: ATORVASTATIN CA 80 MG TABLET (FP) PO SCH (23:18)
[2021-04-07] MEDS: APIXABAN 2.5 MG TABLET PO SCH (23:18)
[2021-04-07] MEDS: SACUBITRIL/VALSARTAN 49 MG-51 MG TABLET PO SCH (23:50)
[2021-04-08] MEDS ORDERED: PIPERACILLIN/TAZOBACTAM 2.25 GM VIAL IVPB ONE ×3 (00:11→18:29)
[2021-04-08] MEDS: ACETAMINOPHEN 325 MG TABLET (FP) PO PRN (00:19)
[2021-04-08] MEDS: PIPERACILLIN/TAZOB 2.25 GM 2.25 GM in DEXTROSE 5%-WATER - 50 ML IVPB SCH ×3 (01:00→18:31)
[2021-04-08 08:21] LABS: BASO % 0.1 % (0-2.0); EOS % 0.1 % (0-4.5); HEMATOCRIT 30.2 % (35.4-49); HEMOGLOBIN 10.4 GM/dL (11.7-16.9); LYMPH % 4.3 % (8-40); MCH 37.1 pg (25.7-33.7); MCHC 34.3 g/dl (32.0-35.9); MEAN CELL VOLUME 108.1 fl (80-96); MEAN PLT VOLUME 9.4 fl (7.5-11.1); MONO % 4.5 % (3.8-10.2); PLATELET COUNT 152 K/MM3 (134-434); RDW 18.8 % (11.9-15.9); WHITE BLOOD COUNT 9.8 K/mm3 (4.0-10.0)
[2021-04-08 08:51] LABS: CALCIUM 9.2 mg/dL (8.5-10.1)
[2021-04-08 08:52] LABS: BLOOD UREA NITROGEN 37.9 mg/dL (7-18)
[2021-04-08 08:53] LABS: ALBUMIN 2.1 g/dl (3.4-5.0)
[2021-04-08 08:55] LABS: CREATININE 5.6 mg/dL (0.55-1.3); PHOSPHOROUS 5.8 mg/dL (2.5-4.9)
[2021-04-08 08:56] LABS: TOT PROT 6.6 g/dl (6.4-8.2)
[2021-04-08] MEDS ORDERED: DEXTROSE 5%-WATER - 50 ML IVPB ONE ×2 (09:56→18:29)
[2021-04-08] MEDS ORDERED: PT OWN MED DRAWER 7, Y5N ONE ×2 (09:56→21:01)
[2021-04-08] MEDS ORDERED: amLODIPine BESYLATE 5 MG TABLET (FP) PO SCH (10:00)
[2021-04-08] MEDS ORDERED: SACUBITRIL/VALSARTAN 49 MG-51 MG TABLET PO SCH (10:00)
[2021-04-08] MEDS: CARVEDILOL 25 MG TABLET (FP) PO SCH ×2 (10:13→21:09)
[2021-04-08] MEDS: TAMSULOSIN HCL 0.4 MG CAP PO SCH (10:13)
[2021-04-08] MEDS: SACUBITRIL/VALSARTAN 49 MG-51 MG TABLET PO SCH ×2 (10:13→21:09)
[2021-04-08] MEDS: APIXABAN 2.5 MG TABLET PO SCH ×2 (10:13→21:09)
[2021-04-08] MEDS: POLYETHYLENE GLYCOL 3350 119 GM BTL PO SCH ×2 (10:16→21:09)
[2021-04-08 10:38] LABS: ANISOCYTOSIS 1+; MACROCYTOSIS 1+; OVALOCYTE 1+; PLATELET ESTIMATE DECREASED; TARGET CELLS 2+; TEAR DROP CELLS 1+
[2021-04-08] MEDS ORDERED: SODIUM CHLORIDE 250 ML IV PRN (15:40)
[2021-04-08] MEDS: ATORVASTATIN CA 80 MG TABLET (FP) PO SCH (21:09)
[2021-04-09] MEDS ORDERED: DEXTROSE 5%-WATER - 50 ML IVPB ONE ×3 (00:46→17:30)
[2021-04-09] MEDS ORDERED: PIPERACILLIN/TAZOBACTAM 2.25 GM VIAL IVPB ONE ×3 (00:46→17:30)
[2021-04-09] MEDS: PIPERACILLIN/TAZOB 2.25 GM 2.25 GM in DEXTROSE 5%-WATER - 50 ML IVPB SCH ×3 (01:01→18:11)
[2021-04-09] MEDS ORDERED: PIPERACILLIN/TAZOB 2.25 GM 2.25 GM in DEXTROSE 5%-WATER - 50 ML IVPB SCH (02:00)
[2021-04-09 09:02] LABS: BASO % 0.2 % (0-2.0); EOS % 0.3 % (0-4.5); HEMATOCRIT 27.9 % (35.4-49); HEMOGLOBIN 9.4 GM/dL (11.7-16.9); LYMPH % 7.5 % (8-40); MCH 37.2 pg (25.7-33.7); MCHC 33.8 g/dl (32.0-35.9); MEAN PLT VOLUME 10.2 fl (7.5-11.1); MONO % 7.1 % (3.8-10.2); NEUT % 84.9 % (42.8-82.8); PLATELET COUNT 125 K/MM3 (134-434); RBC 2.54 M/mm3 (4.00-5.60); RDW 18.9 % (11.9-15.9); WHITE BLOOD COUNT 7.4 K/mm3 (4.0-10.0)
[2021-04-09] MEDS ORDERED: PT OWN MED DRAWER 7, Y5N ONE ×3 (09:30→21:32)
[2021-04-09] MEDS: POLYETHYLENE GLYCOL 3350 119 GM BTL PO SCH ×3 (09:30→21:34)
[2021-04-09] MEDS: CARVEDILOL 25 MG TABLET (FP) PO SCH ×2 (09:31→21:36)
[2021-04-09] MEDS: TAMSULOSIN HCL 0.4 MG CAP PO SCH (09:31)
[2021-04-09] MEDS: APIXABAN 2.5 MG TABLET PO SCH (09:31)
[2021-04-09 09:45] LABS: CALCIUM 8.8 mg/dL (8.5-10.1)
[2021-04-09 09:46] LABS: ALBUMIN 1.9 g/dl (3.4-5.0); BLOOD UREA NITROGEN 44.4 mg/dL (7-18)
[2021-04-09 09:49] LABS: CREATININE 6.4 mg/dL (0.55-1.3)
[2021-04-09 09:50] LABS: BILIRUBIN,TOTAL 0.9 mg/dL (0.2-1)
[2021-04-09 09:51] LABS: TOT PROT 6.2 g/dl (6.4-8.2)
[2021-04-09] MEDS ORDERED: EPOETIN ALFA-EPBX 4,000 UNIT/ML VIAL IVPUSH ONE (11:00)
[2021-04-09] MEDS: SACUBITRIL/VALSARTAN 49 MG-51 MG TABLET PO SCH ×2 (11:17→21:36)
[2021-04-09] MEDS: ACETAMINOPHEN 325 MG TABLET (FP) PO PRN (11:17)
[2021-04-09] MEDS: ATORVASTATIN CA 80 MG TABLET (FP) PO SCH (21:36)
[2021-04-10] MEDS ORDERED: DEXTROSE 5%-WATER - 50 ML IVPB ONE ×3 (01:18→17:11)
[2021-04-10] MEDS ORDERED: PIPERACILLIN/TAZOBACTAM 2.25 GM VIAL IVPB ONE ×3 (01:18→17:10)
[2021-04-10] MEDS: PIPERACILLIN/TAZOB 2.25 GM 2.25 GM in DEXTROSE 5%-WATER - 50 ML IVPB SCH ×3 (01:20→18:29)
[2021-04-10] MEDS: TAMSULOSIN HCL 0.4 MG CAP PO SCH (08:19)
[2021-04-10 09:15] LABS: BASO % 0.3 % (0-2.0); EOS % 0.5 % (0-4.5); HEMATOCRIT 28.5 % (35.4-49); HEMOGLOBIN 9.5 GM/dL (11.7-16.9); LYMPH % 7.2 % (8-40); MCH 36.7 pg (25.7-33.7); MCHC 33.3 g/dl (32.0-35.9); MEAN CELL VOLUME 110.2 fl (80-96); MEAN PLT VOLUME 10.5 fl (7.5-11.1); MONO % 7.1 % (3.8-10.2); NEUT % 84.9 % (42.8-82.8); PLATELET COUNT 119 K/MM3 (134-434); RBC 2.58 M/mm3 (4.00-5.60); RDW 19.4 % (11.9-15.9); WHITE BLOOD COUNT 7.8 K/mm3 (4.0-10.0)
[2021-04-10 09:55] LABS: BLOOD UREA NITROGEN 24.3 mg/dL (7-18); CALCIUM 8.4 mg/dL (8.5-10.1)
[2021-04-10 09:57] LABS: ALBUMIN 1.8 g/dl (3.4-5.0)
[2021-04-10 10:00] LABS: CREATININE 4.2 mg/dL (0.55-1.3)
[2021-04-10 10:01] LABS: BILIRUBIN,TOTAL 0.8 mg/dL (0.2-1); TOT PROT 6.4 g/dl (6.4-8.2)
[2021-04-10] MEDS ORDERED: PT OWN MED DRAWER 7, Y5N ONE ×3 (10:12→22:11)
[2021-04-10] MEDS: SACUBITRIL/VALSARTAN 49 MG-51 MG TABLET PO SCH ×2 (10:19→22:12)
[2021-04-10] MEDS: CARVEDILOL 25 MG TABLET (FP) PO SCH (10:19)
[2021-04-10] MEDS: ACETAMINOPHEN 325 MG TABLET (FP) PO PRN (10:19)
[2021-04-10] MEDS: POLYETHYLENE GLYCOL 3350 119 GM BTL PO SCH ×2 (10:24→22:12)
[2021-04-10 16:17] VITALS: BMI 18.1
[2021-04-10] MEDS ORDERED: CARVEDILOL 25 MG TABLET (FP) PO SCH (16:46)
[2021-04-10] MEDS ORDERED: EPOETIN ALFA-EPBX 10,000 UNIT/ML VIAL SQ ONE ×2 (16:55→17:00)
[2021-04-10] MEDS: ACETAMINOPHEN 325 MG TABLET (FP) PO SCH ×2 (18:30→21:48)
[2021-04-10] MEDS: AMINO ACIDS/PROTEIN HYDROLYS 30 ML LIQUID.PKT PO SCH (18:30)
[2021-04-10] MEDS: ATORVASTATIN CA 80 MG TABLET (FP) PO SCH (21:48)
[2021-04-10] MEDS: CARVEDILOL 12.5 MG TABLET (FP) PO SCH (21:48)
[2021-04-11] MEDS ORDERED: PIPERACILLIN/TAZOBACTAM 2.25 GM VIAL IVPB ONE ×3 (01:22→15:58)
[2021-04-11] MEDS ORDERED: DEXTROSE 5%-WATER - 50 ML IVPB ONE ×3 (01:23→15:58)
[2021-04-11] MEDS: PIPERACILLIN/TAZOB 2.25 GM 2.25 GM in DEXTROSE 5%-WATER - 50 ML IVPB SCH ×3 (01:27→16:59)
[2021-04-11 07:45] LABS: BASO % 0.3 % (0-2.0); EOS % 0.3 % (0-4.5); HEMATOCRIT 28.4 % (35.4-49); HEMOGLOBIN 9.4 GM/dL (11.7-16.9); LYMPH % 8.8 % (8-40); MCH 36.8 pg (25.7-33.7); MCHC 33.1 g/dl (32.0-35.9); MEAN CELL VOLUME 111.4 fl (80-96); MEAN PLT VOLUME 10.4 fl (7.5-11.1); MONO % 8.5 % (3.8-10.2); NEUT % 82.1 % (42.8-82.8); PLATELET COUNT 119 K/MM3 (134-434); RBC 2.54 M/mm3 (4.00-5.60); RDW 19.6 % (11.9-15.9)
[2021-04-11] MEDS: AMINO ACIDS/PROTEIN HYDROLYS 30 ML LIQUID.PKT PO SCH ×2 (08:19→16:35)
[2021-04-11] MEDS: TAMSULOSIN HCL 0.4 MG CAP PO SCH (08:19)
[2021-04-11 08:36] LABS: ALBUMIN 1.8 g/dl (3.4-5.0); BLOOD UREA NITROGEN 38.2 mg/dL (7-18); CALCIUM 8.2 mg/dL (8.5-10.1)
[2021-04-11 08:41] LABS: CREATININE 5.1 mg/dL (0.55-1.3); TOT PROT 6.4 g/dl (6.4-8.2)
[2021-04-11] MEDS ORDERED: PT OWN MED DRAWER 7, Y5N ONE ×2 (09:56→20:58)
[2021-04-11] MEDS: ACETAMINOPHEN 325 MG TABLET (FP) PO SCH ×3 (10:01→21:15)
[2021-04-11] MEDS: SACUBITRIL/VALSARTAN 49 MG-51 MG TABLET PO SCH ×2 (10:02→21:14)
[2021-04-11] MEDS: CARVEDILOL 12.5 MG TABLET (FP) PO SCH ×2 (10:02→21:14)
[2021-04-11] MEDS: POLYETHYLENE GLYCOL 3350 119 GM BTL PO SCH ×2 (10:02→21:22)
[2021-04-11] MEDS ORDERED: POTASSIUM CHLORIDE TABS 10 MEQ TABLET.ER (FP) PO ONE (10:57)
[2021-04-11 11:02] LABS: ANISOCYTOSIS 1+; MACROCYTOSIS 1+; OVALOCYTE 1+; PLATELET ESTIMATE DECREASED; TARGET CELLS 1+
[2021-04-11] MEDS: ATORVASTATIN CA 80 MG TABLET (FP) PO SCH (21:15)
[2021-04-12] MEDS ORDERED: PIPERACILLIN/TAZOBACTAM 2.25 GM VIAL IVPB ONE ×3 (01:36→17:47)
[2021-04-12] MEDS ORDERED: DEXTROSE 5%-WATER - 50 ML IVPB ONE ×3 (01:36→17:47)
[2021-04-12] MEDS: PIPERACILLIN/TAZOB 2.25 GM 2.25 GM in DEXTROSE 5%-WATER - 50 ML IVPB SCH ×3 (01:45→17:47)
[2021-04-12] MEDS: TAMSULOSIN HCL 0.4 MG CAP PO SCH (08:53)
[2021-04-12] MEDS: AMINO ACIDS/PROTEIN HYDROLYS 30 ML LIQUID.PKT PO SCH ×2 (08:53→17:48)
[2021-04-12 08:58] LABS: BASO % 0.3 % (0-2.0); EOS % 0.4 % (0-4.5); HEMATOCRIT 29.8 % (35.4-49); HEMOGLOBIN 9.9 GM/dL (11.7-16.9); LYMPH % 7.9 % (8-40); MCHC 33.3 g/dl (32.0-35.9); MEAN CELL VOLUME 110.9 fl (80-96); MEAN PLT VOLUME 10.8 fl (7.5-11.1); MONO % 8.9 % (3.8-10.2); NEUT % 82.5 % (42.8-82.8); PLATELET COUNT 119 K/MM3 (134-434); RBC 2.69 M/mm3 (4.00-5.60); RDW 19.4 % (11.9-15.9); WHITE BLOOD COUNT 7.2 K/mm3 (4.0-10.0)
[2021-04-12 09:15] LABS: ALBUMIN 1.8 g/dl (3.4-5.0); CALCIUM 8.7 mg/dL (8.5-10.1)
[2021-04-12 09:16] LABS: BLOOD UREA NITROGEN 49.5 mg/dL (7-18)
[2021-04-12 09:19] LABS: BILIRUBIN,TOTAL 0.7 mg/dL (0.2-1); CREATININE 5.8 mg/dL (0.55-1.3)
[2021-04-12 09:20] LABS: TOT PROT 6.6 g/dl (6.4-8.2)
[2021-04-12] MEDS: BACITRACIN 15 GM TUBE TOPICAL OINTMENT TP SCH (12:31)
[2021-04-12] MEDS: CARVEDILOL 12.5 MG TABLET (FP) PO SCH ×2 (12:32→21:04)
[2021-04-12] MEDS: POLYETHYLENE GLYCOL 3350 119 GM BTL PO SCH ×2 (12:33→21:06)
[2021-04-12] MEDS ORDERED: PT OWN MED DRAWER 7, Y5N ONE ×2 (12:35→21:01)
[2021-04-12] MEDS: SACUBITRIL/VALSARTAN 49 MG-51 MG TABLET PO SCH ×2 (12:36→21:06)
[2021-04-12] MEDS: ACETAMINOPHEN 325 MG TABLET (FP) PO SCH ×3 (12:37→21:05)
[2021-04-12] MEDS: APIXABAN 2.5 MG TABLET PO SCH ×2 (12:39→21:05)
[2021-04-12] MEDS: ATORVASTATIN CA 80 MG TABLET (FP) PO SCH (21:06)
[2021-04-13] MEDS ORDERED: DEXTROSE 5%-WATER - 50 ML IVPB ONE ×3 (02:44→16:38)
[2021-04-13] MEDS ORDERED: PIPERACILLIN/TAZOBACTAM 2.25 GM VIAL IVPB ONE ×3 (02:44→16:37)
[2021-04-13] MEDS: PIPERACILLIN/TAZOB 2.25 GM 2.25 GM in DEXTROSE 5%-WATER - 50 ML IVPB SCH ×3 (02:51→17:06)
[2021-04-13 08:26] LABS: BASO % 0.5 % (0-2.0); EOS % 0.3 % (0-4.5); HEMATOCRIT 29.1 % (35.4-49); HEMOGLOBIN 9.5 GM/dL (11.7-16.9); LYMPH % 7.9 % (8-40); MCH 36.3 pg (25.7-33.7); MCHC 32.6 g/dl (32.0-35.9); MEAN CELL VOLUME 111.5 fl (80-96); MEAN PLT VOLUME 10.8 fl (7.5-11.1); MONO % 12.1 % (3.8-10.2); NEUT % 79.2 % (42.8-82.8); PLATELET COUNT 122 K/MM3 (134-434); RBC 2.61 M/mm3 (4.00-5.60); RDW 20.2 % (11.9-15.9); WHITE BLOOD COUNT 6.8 K/mm3 (4.0-10.0)
[2021-04-13 08:52] LABS: CALCIUM 8.7 mg/dL (8.5-10.1)
[2021-04-13 08:56] LABS: CREATININE 4.4 mg/dL (0.55-1.3)
[2021-04-13] MEDS ORDERED: PT OWN MED DRAWER 7, Y5N ONE ×2 (09:36→20:58)
[2021-04-13] MEDS: TAMSULOSIN HCL 0.4 MG CAP PO SCH (09:42)
[2021-04-13] MEDS: APIXABAN 2.5 MG TABLET PO SCH (09:42)
[2021-04-13] MEDS: ACETAMINOPHEN 325 MG TABLET (FP) PO SCH ×3 (09:42→21:06)
[2021-04-13] MEDS: AMINO ACIDS/PROTEIN HYDROLYS 30 ML LIQUID.PKT PO SCH ×2 (09:42→16:42)
[2021-04-13] MEDS: CARVEDILOL 12.5 MG TABLET (FP) PO SCH ×2 (09:42→21:06)
[2021-04-13] MEDS: SACUBITRIL/VALSARTAN 49 MG-51 MG TABLET PO SCH ×2 (09:42→21:06)
[2021-04-13] MEDS: BACITRACIN 15 GM TUBE TOPICAL OINTMENT TP SCH (09:43)
[2021-04-13] MEDS: POLYETHYLENE GLYCOL 3350 119 GM BTL PO SCH ×2 (09:52→21:06)
[2021-04-13] MEDS ORDERED: POTASSIUM CHLORIDE ORAL LIQUID 20 MEQ/15 ML PO ONE (11:54)
[2021-04-13 12:10] LABS: URIC ACID 4.1 mg/dL (2.6-7.2)
[2021-04-13] MEDS: ATORVASTATIN CA 80 MG TABLET (FP) PO SCH (21:06)
[2021-04-14] MEDS ORDERED: DEXTROSE 5%-WATER - 50 ML IVPB ONE ×3 (01:01→18:24)
[2021-04-14] MEDS ORDERED: PIPERACILLIN/TAZOBACTAM 2.25 GM VIAL IVPB ONE ×4 (01:01→18:25)
[2021-04-14] MEDS: PIPERACILLIN/TAZOB 2.25 GM 2.25 GM in DEXTROSE 5%-WATER - 50 ML IVPB SCH ×3 (01:05→18:30)
[2021-04-14] MEDS: AMINO ACIDS/PROTEIN HYDROLYS 30 ML LIQUID.PKT PO SCH ×2 (08:19→18:30)
[2021-04-14] MEDS: TAMSULOSIN HCL 0.4 MG CAP PO SCH (08:19)
[2021-04-14 09:48] LABS: BASO % 0.5 % (0-2.0); EOS % 0.3 % (0-4.5); HEMATOCRIT 30.2 % (35.4-49); HEMOGLOBIN 10.1 GM/dL (11.7-16.9); LYMPH % 8.8 % (8-40); MCH 36.8 pg (25.7-33.7); MCHC 33.3 g/dl (32.0-35.9); MEAN CELL VOLUME 110.4 fl (80-96); MEAN PLT VOLUME 10.7 fl (7.5-11.1); NEUT % 81.4 % (42.8-82.8); PLATELET COUNT 140 K/MM3 (134-434); RBC 2.73 M/mm3 (4.00-5.60); RDW 19.2 % (11.9-15.9); WHITE BLOOD COUNT 7.4 K/mm3 (4.0-10.0)
[2021-04-14] MEDS: CARVEDILOL 12.5 MG TABLET (FP) PO SCH ×2 (10:02→21:32)
[2021-04-14] MEDS: BACITRACIN 15 GM TUBE TOPICAL OINTMENT TP SCH (10:04)
[2021-04-14] MEDS: ACETAMINOPHEN 325 MG TABLET (FP) PO SCH ×2 (10:04→21:32)
[2021-04-14] MEDS: POLYETHYLENE GLYCOL 3350 119 GM BTL PO SCH ×2 (10:04→21:33)
[2021-04-14 10:13] LABS: BLOOD UREA NITROGEN 51.7 mg/dL (7-18)
[2021-04-14 10:16] LABS: CALCIUM 9.1 mg/dL (8.5-10.1); CREATININE 5.3 mg/dL (0.55-1.3)
[2021-04-14] MEDS ORDERED: PT OWN MED DRAWER 7, Y5N ONE (21:22)
[2021-04-14] MEDS: ATORVASTATIN CA 80 MG TABLET (FP) PO SCH (21:32)
[2021-04-14] MEDS: SACUBITRIL/VALSARTAN 49 MG-51 MG TABLET PO SCH (21:33)
[2021-04-15] MEDS ORDERED: DEXTROSE 5%-WATER - 50 ML IVPB ONE ×3 (02:27→17:26)
[2021-04-15] MEDS ORDERED: PIPERACILLIN/TAZOBACTAM 2.25 GM VIAL IVPB ONE ×3 (02:27→17:26)
[2021-04-15] MEDS: PIPERACILLIN/TAZOB 2.25 GM 2.25 GM in DEXTROSE 5%-WATER - 50 ML IVPB SCH ×3 (02:39→17:54)
[2021-04-15] MEDS ORDERED: ACETAMINOPHEN 325 MG TABLET (FP) PO ONE (03:56)
[2021-04-15] MEDS: AMINO ACIDS/PROTEIN HYDROLYS 30 ML LIQUID.PKT PO SCH ×2 (08:41→17:54)
[2021-04-15] MEDS: TAMSULOSIN HCL 0.4 MG CAP PO SCH (08:41)
[2021-04-15] MEDS ORDERED: PT OWN MED DRAWER 7, Y5N ONE ×2 (10:53→21:41)
[2021-04-15] MEDS: CARVEDILOL 12.5 MG TABLET (FP) PO SCH ×2 (10:55→21:48)
[2021-04-15] MEDS: ACETAMINOPHEN 325 MG TABLET (FP) PO SCH ×2 (10:55→21:49)
[2021-04-15] MEDS: BACITRACIN 15 GM TUBE TOPICAL OINTMENT TP SCH (10:55)
[2021-04-15] MEDS: SACUBITRIL/VALSARTAN 49 MG-51 MG TABLET PO SCH ×2 (10:56→21:49)
[2021-04-15] MEDS: POLYETHYLENE GLYCOL 3350 119 GM BTL PO SCH ×2 (10:56→21:49)
[2021-04-15] MEDS ORDERED: SODIUM CHLORIDE 250 ML IV PRN (11:36)
[2021-04-15] MEDS ORDERED: ACETAMINOPHEN 325 MG TABLET (FP) PO SCH ×2 (17:45)
[2021-04-15] MEDS: ATORVASTATIN CA 80 MG TABLET (FP) PO SCH (21:48)
[2021-04-15] MEDS: RANOLAZINE E.R. 500 MG TABLET (FP) PO SCH (21:48)
[2021-04-16] MEDS ORDERED: PIPERACILLIN/TAZOBACTAM 2.25 GM VIAL IVPB ONE ×2 (01:56→08:57)
[2021-04-16] MEDS ORDERED: DEXTROSE 5%-WATER - 50 ML IVPB ONE ×2 (01:56→08:57)
[2021-04-16] MEDS: PIPERACILLIN/TAZOB 2.25 GM 2.25 GM in DEXTROSE 5%-WATER - 50 ML IVPB SCH ×2 (02:01→09:02)
[2021-04-16] MEDS: AMINO ACIDS/PROTEIN HYDROLYS 30 ML LIQUID.PKT PO SCH (09:00)
[2021-04-16] MEDS: RANOLAZINE E.R. 500 MG TABLET (FP) PO SCH (09:01)
[2021-04-16] MEDS: CARVEDILOL 12.5 MG TABLET (FP) PO SCH (09:01)
[2021-04-16] MEDS: BACITRACIN 15 GM TUBE TOPICAL OINTMENT TP SCH (09:01)
[2021-04-16] MEDS: TAMSULOSIN HCL 0.4 MG CAP PO SCH (09:01)
[2021-04-16] MEDS: POLYETHYLENE GLYCOL 3350 119 GM BTL PO SCH (09:02)
[2021-04-16] MEDS: ACETAMINOPHEN 325 MG TABLET (FP) PO SCH (09:02)
[2021-04-16] MEDS ORDERED: PT OWN MED DRAWER 7, Y5N ONE (09:04)
[2021-04-16] MEDS: SACUBITRIL/VALSARTAN 49 MG-51 MG TABLET PO SCH (09:05)
[2021-04-16] MEDS ORDERED: VITAMIN B COMP W-C 1 EA TABLET (NEPHRO-VITE) PO SCH (10:00)
[2021-04-16 15:22] VITALS: BP 125/80; PULSE 81; TEMP 97.5
== END 2021-04-16 17:46 | disposition home or self-care (01) | DRG 602 ==
LOC: JER 13:48 → JERBED 17:36 → J6S 22:44
PROVIDERS: ATTEND Internal Medicine
PROC: 5A1D70Z Performance of Urinary Filtration, Intermittent, Less than 6 Hours Per Day (ICD-10-PCS; principal; 2021-04-07)
DX: L03.116 Cellulitis of left lower limb (principal); N18.6 End stage renal disease; I50.43 Acute on chronic combined systolic (congestive) and diastolic (congestive) heart failure; I13.2 Hypertensive heart and chronic kidney disease with heart failure and with stage 5 chronic kidney disease, or end stage renal disease; R18.8 Other ascites; R64 Cachexia; L97.929 Non-pressure chronic ulcer of unspecified part of left lower leg with unspecified severity; Z68.1 Body mass index [BMI] 19.9 or less, adult; Z99.2 Dependence on renal dialysis; I25.2 Old myocardial infarction; I25.5 Ischemic cardiomyopathy; I48.0 Paroxysmal atrial fibrillation; D63.1 Anemia in chronic kidney disease; Z79.01 Long term (current) use of anticoagulants; E87.5 Hyperkalemia; F03.90 Unspecified dementia, unspecified severity, without behavioral disturbance, psychotic disturbance, mood disturbance, and anxiety; N40.0 Benign prostatic hyperplasia without lower urinary tract symptoms; E78.5 Hyperlipidemia, unspecified; I36.1 Nonrheumatic tricuspid (valve) insufficiency; R62.7 Adult failure to thrive; M77.01 Medial epicondylitis, right elbow; M19.021 Primary osteoarthritis, right elbow
CPT/HCPCS: 36415; 71045-TC-FY; 73070-TC-RT-FY; 74176-TC; 80048; 80053; 82140; 82607; 82746; 82962; 83605; 83735; 83880; 84100; 84484; 84550; 85025; 85610; 85730; 86803; 87040; 87340; 93005; 93010; 93306-TC; 93308; 93970-TC; 97116-GP; 99285-25; C9803; Q5106; U0003; U0005

== ENCOUNTER 2021-04-16 20:30 | Inpatient (IN) | payer BC, OTHER ==
[2021-04-16] MEDS ORDERED: ACETAMINOPHEN 500 MG TABLET (FP) PO ONE (22:01)
[2021-04-16] MEDS ORDERED: ACETAMINOPHEN 325 MG TABLET (FP) ONE (22:06)
[2021-04-17 01:25] LABS: BASO % 1.1 % (0-2.0); EOS % 0.3 % (0-4.5); HEMATOCRIT 30.5 % (35.4-49); HEMOGLOBIN 9.8 GM/dL (11.7-16.9); LYMPH % 8.9 % (8-40); MCH 35.7 pg (25.7-33.7); MCHC 32.2 g/dl (32.0-35.9); MEAN PLT VOLUME 10.1 fl (7.5-11.1); MONO % 13.3 % (3.8-10.2); NEUT % 76.4 % (42.8-82.8); PLATELET COUNT 217 K/MM3 (134-434); RBC 2.75 M/mm3 (4.00-5.60); RDW 19.7 % (11.9-15.9); WHITE BLOOD COUNT 6.8 K/mm3 (4.0-10.0)
[2021-04-17 01:42] LABS: ACTIVATED PTT 38.2 SECONDS (25.2-36.5)
[2021-04-17 01:51] LABS: CALCIUM 9.1 mg/dL (8.5-10.1)
[2021-04-17 01:53] LABS: INR 1.54 (0.83-1.09); PROTHROMBIN TIME (PATIENT) 18.7 SEC (9.7-13.0)
[2021-04-17 01:55] LABS: CREATININE 3.3 mg/dL (0.55-1.3)
[2021-04-17 01:57] LABS: BILIRUBIN,TOTAL 0.7 mg/dL (0.2-1)
[2021-04-17] MEDS ORDERED: DEXTROSE 50%-WATER - 25 GM/50 ML VIAL IVPUSH ONE (03:22)
[2021-04-17] MEDS ORDERED: DEXTROSE 50%-WATER 25 GM/50 ML DISP.SYRIN ONE (03:26)
[2021-04-17 04:16] LABS: MAGNESIUM 1.8 mg/dL (1.8-2.4)
[2021-04-17 06:24] LABS: ARTERIAL BLD GAS O2 SATURATION 98.1 mmHg (95-98); ARTERIAL BLOOD GAS BASE EXCESS -0.2 mmol/L (-2-2); ARTERIAL BLOOD GAS PO2 108.4 mmHg (80-100); ARTERIAL BLOOD GAS pH 7.432 (7.350-7.450)
[2021-04-17 06:36] LABS: ALLENS TEST POSITIVE
[2021-04-17] MEDS: CALCIUM ACETATE 667 MG CAPSULE (FP) PO SCH ×3 (08:59→18:35)
[2021-04-17] MEDS: AMINO ACIDS/PROTEIN HYDROLYS 30 ML LIQUID.PKT PO SCH ×2 (09:00→18:35)
[2021-04-17] MEDS ORDERED: SACUBITRIL/VALSARTAN 49 MG-51 MG TABLET PO SCH (10:00)
[2021-04-17] MEDS ORDERED: APIXABAN 2.5 MG TABLET ONE (10:31)
[2021-04-17] MEDS ORDERED: TAMSULOSIN HCL 0.4 MG CAP ONE (10:31)
[2021-04-17] MEDS ORDERED: CARVEDILOL 12.5 MG TABLET (FP) ONE (10:31)
[2021-04-17] MEDS: CARVEDILOL 12.5 MG TABLET (FP) PO SCH ×2 (10:38→21:01)
[2021-04-17] MEDS: TAMSULOSIN HCL 0.4 MG CAP PO SCH (10:38)
[2021-04-17] MEDS: VITAMIN B COMP W-C 1 EA TABLET (NEPHRO-VITE) PO SCH (10:38)
[2021-04-17] MEDS: AMOX TR/POT CLAV 250MG/125MG TABLETS PO SCH ×2 (10:38→21:00)
[2021-04-17] MEDS: RANOLAZINE E.R. 500 MG TABLET (FP) PO SCH ×2 (10:38→21:01)
[2021-04-17] MEDS: APIXABAN 2.5 MG TABLET PO SCH ×2 (10:38→21:01)
[2021-04-17] MEDS: POLYETHYLENE GLYCOL 3350 119 GM BTL PO SCH (10:38)
[2021-04-17] MEDS ORDERED: PT OWN MED DRAWER 7, Y5N ONE ×3 (11:56→23:50)
[2021-04-17 16:34] LABS: BASO % 0.8 % (0-2.0); EOS % 0.5 % (0-4.5); HEMATOCRIT 30.8 % (35.4-49); LYMPH % 8.9 % (8-40); MCH 36.1 pg (25.7-33.7); MCHC 32.3 g/dl (32.0-35.9); MEAN CELL VOLUME 111.5 fl (80-96); MEAN PLT VOLUME 9.7 fl (7.5-11.1); MONO % 16.3 % (3.8-10.2); NEUT % 73.5 % (42.8-82.8); PLATELET COUNT 226 K/MM3 (134-434); RBC 2.76 M/mm3 (4.00-5.60); RDW 20.1 % (11.9-15.9); WHITE BLOOD COUNT 6.7 K/mm3 (4.0-10.0)
[2021-04-17 16:51] LABS: CALCIUM 9.4 mg/dL (8.5-10.1)
[2021-04-17 16:52] LABS: BLOOD UREA NITROGEN 33.8 mg/dL (7-18); MAGNESIUM 2.1 mg/dL (1.8-2.4)
[2021-04-17 16:55] LABS: CREATININE 3.9 mg/dL (0.55-1.3); PHOSPHOROUS 5.3 mg/dL (2.5-4.9)
[2021-04-17 16:56] LABS: BILIRUBIN,TOTAL 0.6 mg/dL (0.2-1)
[2021-04-17 16:57] LABS: TOT PROT 7.1 g/dl (6.4-8.2)
[2021-04-17] MEDS: DONEPEZIL HCL 10 MG TABLET (FP) PO SCH (21:00)
[2021-04-17] MEDS: SACUBITRIL/VALSARTAN 24 MG-26 MG TABLET PO SCH (21:00)
[2021-04-17] MEDS: ATORVASTATIN CA 80 MG TABLET (FP) PO SCH (21:00)
[2021-04-18 06:44] LABS: BASO % 0.7 % (0-2.0); EOS % 0.7 % (0-4.5); HEMOGLOBIN 9.5 GM/dL (11.7-16.9); LYMPH % 9.5 % (8-40); MCHC 31.7 g/dl (32.0-35.9); MEAN CELL VOLUME 110.6 fl (80-96); MEAN PLT VOLUME 9.7 fl (7.5-11.1); MONO % 13.5 % (3.8-10.2); NEUT % 75.6 % (42.8-82.8); PLATELET COUNT 185 K/MM3 (134-434); RBC 2.71 M/mm3 (4.00-5.60); RDW 18.8 % (11.9-15.9); WHITE BLOOD COUNT 5.8 K/mm3 (4.0-10.0)
[2021-04-18 07:28] LABS: CALCIUM 9.1 mg/dL (8.5-10.1)
[2021-04-18 07:29] LABS: ALBUMIN 1.8 g/dl (3.4-5.0); BLOOD UREA NITROGEN 41.2 mg/dL (7-18)
[2021-04-18 07:32] LABS: CREATININE 4.4 mg/dL (0.55-1.3)
[2021-04-18 07:40] LABS: BILIRUBIN,TOTAL 0.6 mg/dL (0.2-1); TOT PROT 6.4 g/dl (6.4-8.2)
[2021-04-18] MEDS ORDERED: PT OWN MED DRAWER 7, Y5N ONE ×2 (08:20→17:00)
[2021-04-18] MEDS: TAMSULOSIN HCL 0.4 MG CAP PO SCH (08:54)
[2021-04-18] MEDS: AMINO ACIDS/PROTEIN HYDROLYS 30 ML LIQUID.PKT PO SCH ×2 (08:54→17:07)
[2021-04-18] MEDS: CALCIUM ACETATE 667 MG CAPSULE (FP) PO SCH ×3 (08:54→17:07)
[2021-04-18] MEDS: AMOX TR/POT CLAV 250MG/125MG TABLETS PO SCH ×2 (09:04→17:07)
[2021-04-18] MEDS: SACUBITRIL/VALSARTAN 24 MG-26 MG TABLET PO SCH ×2 (09:05→21:11)
[2021-04-18] MEDS: APIXABAN 2.5 MG TABLET PO SCH ×2 (09:05→21:11)
[2021-04-18] MEDS: CARVEDILOL 12.5 MG TABLET (FP) PO SCH (09:05)
[2021-04-18] MEDS: VITAMIN B COMP W-C 1 EA TABLET (NEPHRO-VITE) PO SCH (09:05)
[2021-04-18] MEDS: POLYETHYLENE GLYCOL 3350 119 GM BTL PO SCH ×2 (09:06→09:12)
[2021-04-18] MEDS: RANOLAZINE E.R. 500 MG TABLET (FP) PO SCH ×2 (09:06→21:11)
[2021-04-18] MEDS: ACETAMINOPHEN 325 MG TABLET (FP) PO PRN ×2 (15:46→23:56)
[2021-04-18] MEDS: ATORVASTATIN CA 80 MG TABLET (FP) PO SCH (21:11)
[2021-04-18] MEDS: DONEPEZIL HCL 10 MG TABLET (FP) PO SCH (21:11)
[2021-04-18] MEDS: CARVEDILOL 6.25 MG TABLET (FP) PO SCH (21:11)
[2021-04-19] MEDS ORDERED: SODIUM CHLORIDE 250 ML IV PRN (07:28)
[2021-04-19] MEDS ORDERED: EPOETIN ALFA-EPBX 10,000 UNIT/ML VIAL IVPUSH ONE (08:00)
[2021-04-19] MEDS ORDERED: PT OWN MED DRAWER 7, Y5N ONE ×3 (10:34→17:51)
[2021-04-19] MEDS: APIXABAN 2.5 MG TABLET PO SCH ×2 (10:38→22:21)
[2021-04-19] MEDS: AMINO ACIDS/PROTEIN HYDROLYS 30 ML LIQUID.PKT PO SCH ×2 (10:38→18:18)
[2021-04-19] MEDS: RANOLAZINE E.R. 500 MG TABLET (FP) PO SCH ×2 (10:38→22:21)
[2021-04-19] MEDS: VITAMIN B COMP W-C 1 EA TABLET (NEPHRO-VITE) PO SCH (10:38)
[2021-04-19] MEDS: CARVEDILOL 6.25 MG TABLET (FP) PO SCH ×2 (10:38→22:21)
[2021-04-19] MEDS: CALCIUM ACETATE 667 MG CAPSULE (FP) PO SCH ×3 (10:39→18:17)
[2021-04-19] MEDS: TAMSULOSIN HCL 0.4 MG CAP PO SCH (10:39)
[2021-04-19] MEDS: AMOX TR/POT CLAV 250MG/125MG TABLETS PO SCH ×2 (10:39→18:17)
[2021-04-19] MEDS: SACUBITRIL/VALSARTAN 24 MG-26 MG TABLET PO SCH ×2 (10:39→22:21)
[2021-04-19] MEDS: POLYETHYLENE GLYCOL 3350 119 GM BTL PO SCH (10:40)
[2021-04-19] MEDS: ACETAMINOPHEN 325 MG TABLET (FP) PO PRN (10:40)
[2021-04-19 20:37] LABS: CALCIUM 8.6 mg/dL (8.5-10.1)
[2021-04-19 20:38] LABS: BLOOD UREA NITROGEN 32.1 mg/dL (7-18)
[2021-04-19 20:41] LABS: CREATININE 3.6 mg/dL (0.55-1.3)
[2021-04-19] MEDS: ATORVASTATIN CA 80 MG TABLET (FP) PO SCH (22:21)
[2021-04-19] MEDS: DONEPEZIL HCL 10 MG TABLET (FP) PO SCH (22:21)
[2021-04-20 07:43] LABS: CHLORIDE 102 mmol/L (98-107); SODIUM 142 mmol/L (136-145)
[2021-04-20 07:49] LABS: CALCIUM 8.4 mg/dL (8.5-10.1)
[2021-04-20 07:50] LABS: BLOOD UREA NITROGEN 33.6 mg/dL (7-18); CO2 30 mmol/L (21-32); GLUCOSE,RANDOM 95 mg/dL (74-106)
[2021-04-20 07:53] LABS: ANION GAP 10 MMOL/L (8-16); CREATININE 3.9 mg/dL (0.55-1.3)
[2021-04-20] MEDS: SACUBITRIL/VALSARTAN 24 MG-26 MG TABLET PO SCH ×2 (09:08→21:57)
[2021-04-20] MEDS: CARVEDILOL 6.25 MG TABLET (FP) PO SCH ×2 (09:09→21:57)
[2021-04-20] MEDS: APIXABAN 2.5 MG TABLET PO SCH ×2 (09:09→21:57)
[2021-04-20] MEDS: TAMSULOSIN HCL 0.4 MG CAP PO SCH (09:09)
[2021-04-20] MEDS: VITAMIN B COMP W-C 1 EA TABLET (NEPHRO-VITE) PO SCH (09:09)
[2021-04-20] MEDS: RANOLAZINE E.R. 500 MG TABLET (FP) PO SCH ×2 (09:09→21:57)
[2021-04-20] MEDS: AMINO ACIDS/PROTEIN HYDROLYS 30 ML LIQUID.PKT PO SCH ×2 (09:09→17:37)
[2021-04-20] MEDS: CALCIUM ACETATE 667 MG CAPSULE (FP) PO SCH ×3 (09:09→17:37)
[2021-04-20] MEDS ORDERED: PT OWN MED DRAWER 7, Y5N ONE ×2 (09:11→17:31)
[2021-04-20] MEDS: POLYETHYLENE GLYCOL 3350 119 GM BTL PO SCH (09:11)
[2021-04-20] MEDS: AMOX TR/POT CLAV 250MG/125MG TABLETS PO SCH ×2 (11:29→17:37)
[2021-04-20 11:48] VITALS: BMI 20.7
[2021-04-20] MEDS: ATORVASTATIN CA 80 MG TABLET (FP) PO SCH (21:57)
[2021-04-20] MEDS: DONEPEZIL HCL 10 MG TABLET (FP) PO SCH (21:57)
[2021-04-21] MEDS ORDERED: EPOETIN ALFA 10,000 UNIT/1 ML VIAL IVPUSH ONE (08:00)
[2021-04-21] MEDS: TAMSULOSIN HCL 0.4 MG CAP PO SCH (10:44)
[2021-04-21] MEDS: CARVEDILOL 6.25 MG TABLET (FP) PO SCH (10:44)
[2021-04-21] MEDS: AMINO ACIDS/PROTEIN HYDROLYS 30 ML LIQUID.PKT PO SCH ×2 (10:44→18:36)
[2021-04-21] MEDS: VITAMIN B COMP W-C 1 EA TABLET (NEPHRO-VITE) PO SCH (10:44)
[2021-04-21] MEDS: CALCIUM ACETATE 667 MG CAPSULE (FP) PO SCH ×3 (10:44→18:36)
[2021-04-21] MEDS: POLYETHYLENE GLYCOL 3350 119 GM BTL PO SCH (10:45)
[2021-04-21] MEDS: SACUBITRIL/VALSARTAN 24 MG-26 MG TABLET PO SCH (10:45)
[2021-04-21] MEDS: APIXABAN 2.5 MG TABLET PO SCH (10:45)
[2021-04-21] MEDS: RANOLAZINE E.R. 500 MG TABLET (FP) PO SCH (10:46)
[2021-04-21] MEDS: AMOX TR/POT CLAV 250MG/125MG TABLETS PO SCH ×2 (10:46→18:36)
[2021-04-21] MEDS: ACETAMINOPHEN 325 MG TABLET (FP) PO PRN (10:51)
[2021-04-21 18:21] VITALS: BP 126/68; PULSE 84; TEMP 98.3
[2021-04-21] MEDS ORDERED: PT OWN MED DRAWER 7, Y5N ONE (18:34)
== END 2021-04-21 22:07 | DRG 291 ==
LOC: JER 20:30 → JERBED 04-17 03:32 → J4S 04-17 11:10
PROVIDERS: ADMIT Hospitalist; ATTEND Internal Medicine
PROC: 5A1D70Z Performance of Urinary Filtration, Intermittent, Less than 6 Hours Per Day (ICD-10-PCS; principal; 2021-04-18)
DX: I13.2 Hypertensive heart and chronic kidney disease with heart failure and with stage 5 chronic kidney disease, or end stage renal disease (principal); N18.6 End stage renal disease; I50.43 Acute on chronic combined systolic (congestive) and diastolic (congestive) heart failure; R64 Cachexia; J98.11 Atelectasis; R18.8 Other ascites; L03.115 Cellulitis of right lower limb; Z99.2 Dependence on renal dialysis; E78.5 Hyperlipidemia, unspecified; I48.0 Paroxysmal atrial fibrillation; Z79.01 Long term (current) use of anticoagulants; I25.10 Atherosclerotic heart disease of native coronary artery without angina pectoris; I25.2 Old myocardial infarction; D64.9 Anemia, unspecified; I25.5 Ischemic cardiomyopathy; Z68.20 Body mass index [BMI] 20.0-20.9, adult
CPT/HCPCS: 36415; 36600; 70450-TC; 71045-TC-FY; 71250-TC; 72125-TC; 76705-TC; 80048; 80053; 82140; 82803; 82962; 83036; 83735; 84100; 84484; 85025; 85610; 85730; 93005; 93010; 97116-GP; 97161-GP; 99285-25; C9803; J0885; Q5106; U0003; U0005